=== PATIENT | female | born 1950 | race Caucasian/White ===

== ENCOUNTER → 2016-08-05 | Outpatient (CLI) | payer BC ==
[~2016-08-05] MED LIST: AMOX875T3 PO; B-COTAB53 PO; BNC/20125 PO; CEFD1CAP14 PO; CHOL1000 PO; ERGO500037 PO; ESCI10TA17 PO; IBUP-1428 PO; MULT-513 PO; POTA-65 PO; POTA20TA16 PO; PRLSR20 PO
[2016-08-05 17:54] LABS: ALT/SGPT 23 U/L (12-78); AST/SGOT 12 U/L (15-37); BLOOD UREA NITROGEN 17 mg/dl (7-18); BUN/CREATININE RATIO 21.3 (10-20); CARBON DIOXIDE 31 mmol/L (21-32); CHLORIDE 102 mmol/L (98-107); GLUCOSE 115 mg/dl (70-99); SODIUM 140 mmol/L (136-145)
[2016-08-05 17:56] LABS: ALKALINE PHOSPHATASE 77 U/L (45-117); CHOLESTEROL 230 mg/dl (0-200); CHOLESTEROL/HDL RATIO 3.5; HDL CHOLESTEROL 65 mg/dl; LDL CHOLESTEROL CALCULATED 139 mg/dl; TRIGLYCERIDES 131 mg/dl (0-150); VERY LOW DENSITY LIPOPROT CALC 26 mg/dl
== END | disposition home or self-care (01) ==
LOC: C.LABPVFM 11:06
PROVIDERS: ATTEND Family Medicine
DX: I10 Essential (primary) hypertension (principal); E78.5 Hyperlipidemia, unspecified; E55.9 Vitamin D deficiency, unspecified

== ENCOUNTER → 2016-08-06 | Outpatient (CLI) | payer BC ==
[~2016-08-06] VITALS: Ht 157.5 cm; Wt 114.2 kg
[2016-08-06 15:04] VITALS: BP 148/82; PULSE 76; Ht 157.5 cm; Wt 114.2 kg
== END | disposition home or self-care (01) ==
LOC: C.NEUR 13:55
PROVIDERS: ATTEND Internal Medicine Pulmonary Disease
DX: G47.33 Obstructive sleep apnea (adult) (pediatric) (principal)

== ENCOUNTER → 2016-09-21 | Outpatient (CLI) | payer BC | END | disposition home or self-care (01) | LOC: C.LABPVFM 13:12 | PROVIDERS: ATTEND Family Medicine | DX: E55.9 Vitamin D deficiency, unspecified (principal) ==

== ENCOUNTER 2016-10-09 20:42 | Inpatient (IN) | payer BC, OTHER ==
[~2016-10-09] VITALS: Ht 157.5 cm; Wt 113.0 kg
[2016-10-09 20:47] VITALS: Ht 157.5 cm; Wt 113.0 kg
[2016-10-09] MEDS ORDERED: BNC/20125 PO (20:57)
[2016-10-09] MEDS ORDERED: ESCI10TA17 PO (20:57)
[2016-10-09] MEDS ORDERED: IBUP-1428 PO (20:57)
[2016-10-09] MEDS ORDERED: PRLSR20 PO (20:58)
[2016-10-09] MEDS ORDERED: ERGO500037 PO (20:58)
[2016-10-09] MEDS ORDERED: CHOL1000 PO (21:18)
[2016-10-09] MEDS ORDERED: AMOX875T3 PO (21:18)
[2016-10-09] MEDS ORDERED: MoRPHine SULFATE 4 MG/ML 1 ML CARP\\VIAL IV STA (21:31)
[2016-10-09] MEDS ORDERED: ONDANSETRON INJ 2 MG/ML 2 ML VIAL IV STA (21:31)
[2016-10-09 21:38] LABS: BASO % 0.2 %; BASO ABS # 0.01 K/uL (0-0.2); COMPLETE YES; HEMATOCRIT 40.3 % (37-47); LYMPH % 14.7 %; LYMPH ABS # 0.74 K/uL (1.2-3.4); MEAN CORPUSCULAR HEMOGLOBIN 30.9 pg (25-34); MEAN CORPUSCULAR HGB CONC 34.7 g/dl (32-36); MEAN PLATELET VOLUME 8.8 fL (7.4-10.4); MONO % 7.9 %; NEUT % 74.2 %; PLATELET COUNT 185 K/uL (130-400); RED BLOOD COUNT 4.53 M/uL (4.2-5.4); WHITE BLOOD COUNT 5.05 K/uL (4.8-10.8)
[2016-10-09 21:51] LABS: CREATININE 0.87 mg/dl (0.60-1.20)
[2016-10-09 21:52] LABS: BUN/CREATININE RATIO 23.9 (10-20); CALCIUM 9.1 mg/dl (8.5-10.1); POTASSIUM 3.3 mmol/L (3.5-5.1)
[2016-10-09 21:55] LABS: INR 0.9 (0.9-1.1); PROTHROMBIN TIME (PATIENT) 10.1 SECONDS (9.0-12.0)
[2016-10-09] MEDS ORDERED: OPTIRAY 320 IV PRN (22:00)
--- NOTE | 2016-10-09 22:02 | DIAGNOSTIC IMAGING REPORT ---
ABDOMEN 2VIEW W/PA CHEST RTN CLINICAL HISTORY: Epigastric pain COMPARISON STUDY: No previous studies for comparison. FINDINGS: The erect chest reveals cardiac enlargement. There is no free air. There is no focal pulmonary consolidation. There is a hiatal hernia.] Supine views the abdomen reveal surgical clips within the right upper quadrant consistent with a prior cholecystectomy. There are no abnormally dilated loops of large or small bowel. There are no transition zones indicate bowel obstruction. IMPRESSION: 1. Hiatal hernia 2. No evidence of bowel obstruction. No evidence of free air. Electronically signed by: Danny Huizar M.D. 10/09/2016 10:01 PM Dictated Date/Time: 10/09/2016 10:00 PM
--- NOTE | 2016-10-09 22:30 | DIAGNOSTIC IMAGING REPORT ---
CT ABD/PELVIS IV CONTRAST ONLY CLINICAL HISTORY: epigastric pain COMPARISON STUDY: Abdominal series dated 10/09/2016 TECHNIQUE: Following the IV administration of 114 mL of Optiray-320, CT scan of the abdomen and pelvis was performed from the lung bases to the proximal femurs. Images are reviewed in the axial, sagittal, and coronal planes. IV contrast was administered without complication. CT DOSE: FINDINGS: Lower chest: There are minimal atelectatic changes present. There is a moderate hiatal hernia. Liver: The contrast-enhanced liver is normal in size, contour, and attenuation. There is no intrahepatic biliary ductal dilatation. The hepatic veins and portal veins are patent. Gallbladder: Surgically absent Spleen: Normal in size and attenuation. Pancreas: Unremarkable. Adrenal glands: Unremarkable. Kidneys: There is a 4 mm left renal hypodensity, likely representing a cyst. No solid renal masses are visualized. There is no hydronephrosis. Bowel: There are no transition zones indicate bowel obstruction. The appendix appears normal. There is colonic diverticulosis. There are no acute peridiverticular inflammatory changes. Peritoneum: There is no intraperitoneal free air or abdominal ascites. Vasculature: The abdominal aorta is normal in course and caliber. Adenopathy: None. Pelvic viscera: The uterus appears surgically absent Skeletal structures: No destructive osseous lesions are seen. IMPRESSION: 1. No evidence of bowel obstruction. No evidence of free air 2. Normal appendix 3. Diverticulosis. No evidence of acute peridiverticular inflammatory change 4. Hiatal hernia 5. Surgically absent gallbladder and uterus. Electronically signed by: Danny Huizar M.D. 10/09/2016 10:28 PM Dictated Date/Time: 10/09/2016 10:25 PM
--- NOTE | 2016-10-09 22:34 | DIAGNOSTIC IMAGING REPORT ---
CT ANGIOGRAM OF THE CHEST CLINICAL HISTORY: Atypical chest pain COMPARISON STUDY: No previous studies for comparison. TECHNIQUE: Following the IV administration of 114 mL of Optiray-320, CT angiogram of the thorax was performed from the thoracic inlet to the lung bases utilizing the pulmonary embolus protocol. Images are reviewed in the axial, sagittal, and coronal planes. IV contrast was administered without complication. MIP imaging was performed. CT DOSE: 2177.16 mGy.cm FINDINGS: There is a hiatal hernia. Mediastinal left hilar lymph nodes are at the upper limits of normal in size. There was no evidence of thoracic aortic dilatation. There were no pulmonary artery filling defects to indicate acute pulmonary embolism. No pleural effusions are visualized. There are minor dependent atelectatic changes present. There is no focal pulmonary consolidation. IMPRESSION: 1. No CT evidence of acute pulmonary embolism 2. No evidence of focal pulmonary consolidation 3. Hiatal hernia 4. Mediastinal and hilar lymph nodes at the upper limits of normal in size Electronically signed by: Danny Huizar M.D. 10/09/2016 10:33 PM Dictated Date/Time: 10/09/2016 10:30 PM
[2016-10-09 22:52] LABS: MAGNESIUM 1.9 mg/dl (1.8-2.4)
--- NOTE | 2016-10-09 23:18 | EMERGENCY ROOM VISIT NOTE ---
History Report prepared by Rito: Latonya Lynn Under the Supervision of: Dr. Jaleel Hoyos M.D. First contact with patient: 20:45 Chief Complaint: ABDOMINAL PAIN Stated Complaint: AB PAIN Nursing Triage Summary: Today started with sharp abdominal pain across upper right and left quadrant and pressure in centre. Pt did had one emesis at home. Pt was able to eat/drink okay. History of Present Illness The patient is a 66 year old female who presents to the Emergency Room with complaints of intermittent abdominal pain that started around 1900 today. The pain is located in the upper right and upper left quadrant of her abdomen. It is greater on the right. She rates her discomfort as a 3/10 and describes it as feeling "sharp" in nature. She was sitting in a chair when the pain started, and notes she had already eaten dinner. The episode of pain lasted for approximately 15 minutes. After the pain started, she became diaphoretic and went upstairs to her bathroom and vomited once. She also developed pain in her chest which she describes as a pressure. She does not feel nauseous here in the ED currently. Laying down flat provides some relief for her discomfort. Her last colonoscopy was unremarkable. The patient states her pain came back later in the evening but without the chest discomfort, prompting her to visit the ED tonight. She has no personal history of cardiac problems or previous CT's. She has experienced the chills, but has not checked her temperature. She also notes she has been sick with cold symptoms on and off for the past 3 weeks, mostly experiencing a cough and sore throat. She was placed on antibiotics yesterday and Zyrtec for possible allergies. She denies any recent sick contacts and states she did not get a flu shot this year. The patient denies any diarrhea, rectal bleeding, melena, hematochezia or urinary symptoms. She denies any recent swelling or pain in her legs, shortness of breath or vision changes. She has previously undergone a cholecystectomy and hysterectomy. Source of History: patient Onset: 1899 today Position: abdomen (RUQ, LUQ) Symptom Intensity: 3/10 Quality: sharp Timing: intermittent Modifying Factors (Relieving): other (laying down flat) Associated Symptoms: + chest pain, + chills, + diaphoresis, + nausea, + vomiting, No SOB, No diarrhea, No hematochezia, No melena, No urinary symptoms Review of Systems See HPI for pertinent positives & negatives. A total of 10 systems reviewed and were otherwise negative. Past Medical & Surgical Medical Problems: (1) Hypertension Surgical Problems: (1) History of hysterectomy Family History Heart disease Social History Smoking Status: Never Smoker Alcohol Use: occasionally Drug Use: none Marital Status: Housing Status: lives with family Occupation Status: retired Current/Historical Medications Scheduled Amoxicillin (Amoxil), 1 TAB PO BID Cholecalciferol (Vitamin D3), 3,000 UNITS PO DAILY Escitalopram (Lexapro), 5 MG PO DAILY Ibuprofen (Motrin), 800 MG PO TIDM Olmesartan/Hctz (Benicar Hct 20/12.5), 1 TAB PO DAILY Omeprazole (Prilosec), 20 MG PO DAILY Allergies Coded Allergies: NO KNOWN DRUG ALLERGIES (Verified Allergy, Unknown, none, 10/09/16) Physical Exam Vital Signs Date Time Temp Pulse Resp B/P Pulse Ox O2 Delivery O2 Flow Rate FiO2 10/09/16 22:23 91 18 161/88 93 Room Air 10/09/16 22:00 76 10/09/16 21:42 Room Air 10/09/16 20:47 36.4 82 18 159/101 99 Room Air Physical Exam Constitutional: Vital signs reviewed. Eyes: Pupils are equal round reactive to light. Conjunctiva are noninjected. ENT: Pharynx is clear without erythema or exudate. Mucous membranes are moist. Neck supple without meningeal signs. Respiratory: Clear to auscultation bilaterally. Breath sounds are equal bilaterally. Cardiovascular: Regular rate and rhythm. No rubs or gallops. GI: Soft, nondistended, epigastric tenderness, no guarding. Bowel sounds are present. Musculoskeletal: No peripheral edema. No lower extremity tenderness. No CVA tenderness. Integumentary: No cyanosis. Neurological: The patient is awake and alert. No focal deficits. Psychiatric: Normal affect. Medical Decision & Procedures ER Provider Diagnostic Interpretation: This X-Ray was reviewed and interpreted by myself and the radiologist. ABDOMEN 2VIEW W/PA CHEST RTN CLINICAL HISTORY: Epigastric pain COMPARISON STUDY: No previous studies for comparison. FINDINGS: The erect chest reveals cardiac enlargement. There is no free air. There is no focal pulmonary consolidation. There is a hiatal hernia.] Supine views the abdomen reveal surgical clips within the right upper quadrant consistent with a prior cholecystectomy. There are no abnormally dilated loops of large or small bowel. There are no transition zones indicate bowel obstruction. IMPRESSION: 1. Hiatal hernia 2. No evidence of bowel obstruction. No evidence of free air. Electronically signed by: Danny Huizar M.D. 10/09/2016 10:[address] scans were reviewed and interpreted by the radiologist and reviewed by myself. CT ABD/PELVIS IV CONTRAST ONLY CLINICAL HISTORY: epigastric pain COMPARISON STUDY: Abdominal series dated 10/09/2016 TECHNIQUE: Following the IV administration of 114 mL of Optiray-320, CT scan of the abdomen and pelvis was performed from the lung bases to the proximal femurs. Images are reviewed in the axial, sagittal, and coronal planes. IV contrast was administered without complication. CT DOSE: FINDINGS: Lower chest: There are minimal atelectatic changes present. There is a moderate hiatal hernia. Liver: The contrast-enhanced liver is normal in size, contour, and attenuation. There is no intrahepatic biliary ductal dilatation. The hepatic veins and portal veins are patent. Gallbladder: Surgically absent Spleen: Normal in size and attenuation. Pancreas: Unremarkable. Adrenal glands: Unremarkable. Kidneys: There is a 4 mm left renal hypodensity, likely representing a cyst. No solid renal masses are visualized. There is no hydronephrosis. Bowel: There are no transition zones indicate bowel obstruction. The appendix appears normal. There is colonic diverticulosis. There are no acute peridiverticular inflammatory changes. Peritoneum: There is no intraperitoneal free air or abdominal ascites. Vasculature: The abdominal aorta is normal in course and caliber. Adenopathy: None. Pelvic viscera: The uterus appears surgically absent Skeletal structures: No destructive osseous lesions are seen. IMPRESSION: 1. No evidence of bowel obstruction. No evidence of free air 2. Normal appendix 3. Diverticulosis. No evidence of acute peridiverticular inflammatory change 4. Hiatal hernia 5. Surgically absent gallbladder and uterus. Electronically signed by: Danny Huizar M.D. 10/09/2016 10:[address] ANGIOGRAM OF THE CHEST CLINICAL HISTORY: Atypical chest pain COMPARISON STUDY: No previous studies for comparison. TECHNIQUE: Following the IV administration of 114 mL of Optiray-320, CT angiogram of the thorax was performed from the thoracic inlet to the lung bases utilizing the pulmonary embolus protocol. Images are reviewed in the axial, sagittal, and coronal planes. IV contrast was administered without complication. MIP imaging was performed. CT DOSE: 2177.16 mGy.cm FINDINGS: There is a hiatal hernia. Mediastinal left hilar lymph nodes are at the upper limits of normal in size. There was no evidence of thoracic aortic dilatation. There were no pulmonary artery filling defects to indicate acute pulmonary embolism. No pleural effusions are visualized. There are minor dependent atelectatic changes present. There is no focal pulmonary consolidation. IMPRESSION: 1. No CT evidence of acute pulmonary embolism 2. No evidence of focal pulmonary consolidation 3. Hiatal hernia 4. Mediastinal and hilar lymph nodes at the upper limits of normal in size Electronically signed by: Danny Huizar M.D. 10/09/2016 10:33 PM Laboratory Results 10/09/16 21:00 Red Blood Count 4.53, Mean Corpuscular Volume 89.0, Mean Corpuscular Hemoglobin 30.9, Mean Corpuscular Hemoglobin Concent 34.7, Mean Platelet Volume 8.8, Neutrophils (%) (Auto) 74.2, Lymphocytes (%) (Auto) 14.7, Monocytes (%) (Auto) 7.9, Eosinophils (%) (Auto) 3.0, Basophils (%) (Auto) 0.2, Neutrophils # (Auto) 3.75, Lymphocytes # (Auto) 0.74, Monocytes # (Auto) 0.40, Eosinophils # (Auto) 0.15, Basophils # (Auto) 0.01 10/09/16 21:00 Test 10/09/16 21:00 10/09/16 21:42 White Blood Count 5.05 K/uL (4.8-10.8) Red Blood Count 4.53 M/uL (4.2-5.4) Hemoglobin 14.0 g/dL (12.0-16.0) Hematocrit 40.3 % (37-47) Mean Corpuscular Volume 89.0 fL (80-100) Mean Corpuscular Hemoglobin 30.9 pg (25-34) Mean Corpuscular Hemoglobin Concent 34.7 g/dl (32-36) Platelet Count 185 K/uL (130-400) Mean Platelet Volume 8.8 fL (7.4-10.4) Neutrophils (%) (Auto) 74.2 % Lymphocytes (%) (Auto) 14.7 % Monocytes (%) (Auto) 7.9 % Eosinophils (%) (Auto) 3.0 % Basophils (%) (Auto) 0.2 % Neutrophils # (Auto) 3.75 K/uL (1.4-6.5) Lymphocytes # (Auto) 0.74 K/uL (1.2-3.4) Monocytes # (Auto) 0.40 K/uL (0.11-0.59) Eosinophils # (Auto) 0.15 K/uL (0-0.5) Basophils # (Auto) 0.01 K/uL (0-0.2) RDW Standard Deviation 40.3 fL (36.4-46.3) RDW Coefficient of Variation 12.5 % (11.5-14.5) Immature Granulocyte % (Auto) 0.0 % Immature Granulocyte # (Auto) 0.00 K/uL (0.00-0.02) Prothrombin Time 10.1 SECONDS (9.0-12.0) Prothromb Time International Ratio 0.9 (0.9-1.1) Activated Partial Thromboplast Time 25.2 SECONDS (21.0-31.0) Partial Thromboplastin Ratio 1.0 Anion Gap 10.0 mmol/L (3-11) Est Creatinine Clear Calc Drug Dose 74.3 ml/min Estimated GFR () 79.3 Estimated GFR (Non- 68.5 BUN/Creatinine Ratio 23.9 (10-20) Calcium Level 9.1 mg/dl (8.5-10.1) Magnesium Level 1.9 mg/dl (1.8-2.4) Total Bilirubin 0.5 mg/dl (0.2-1) Direct Bilirubin 0.1 mg/dl (0-0.2) Aspartate Amino Transf (AST/SGOT) 113 U/L (15-37) Alanine Aminotransferase (ALT/SGPT) 69 U/L (12-78) Alkaline Phosphatase 92 U/L (45-117) Total Protein 7.7 gm/dl (6.4-8.2) Albumin 3.7 gm/dl (3.4-5.0) Lipase 179 U/L (73-393) Bedside Troponin I 0.000 ng/ml (0-0.045) Laboratory results as reviewed by me. Medications Administered Medications (Trade) Dose Ordered Sig/Maggie Route Start Time Stop Time Status Last Admin Dose Admin Morphine Sulfate (MoRPHine SULFATE INJ) 4 mg NOW STAT IV 10/09/16 21:31 10/09/16 21:33 DC 10/09/16 21:37 4 MG Ondansetron HCl (Zofran Inj) 4 mg NOW STAT IV 10/09/16 21:31 10/09/16 21:33 DC 10/09/16 21:36 4 MG ECG Indication: chest pain Rate (beats per minute): 79 Rhythm: normal sinus (normal sinus rhythm) Findings: no acute ischemic change, no ectopy ED Course 2124: The patient was evaluated in room C9. A complete history and physical exam was performed. 2130: Zofran 4 mg IV, Morphine Sulfate 4 mg IV. 2154: I reevaluated the patient. She is feeling better. I discussed her test results and recommend a CT scan. She is agreeable. 2234: I reevaluated the patient. She has no pain at this time. I discussed her test results and my recommendation she remain in the hospital for further evaluation and management and she verbalized complete understanding and agreement. 2254: I discussed the patients case with Dr. López, [facility] Hospitalist. The patient will be further evaluated. Medical Decision This is a 66-year-old female presents with upper abdominal pain and chest pain.differential diagnosis includes unstable angina, CT, pleurisy, pneumonia, pulmonary embolism, peptic ulcer disease, ruptured viscus. I did perform a limited focused review of portions of the patient's old chart on the electronic medical record. The patient has had no recent pertinent visits to this hospital. I did evaluate the patient as noted above. The patient is presenting with upper abdominal pain. She also developed chest discomfort which she describes as a pressure associated with diaphoresis and shortness of breath. IV access was established. The patient was placed on a continuous groundwater monitoring technician. I did order and personally review the patient's 12-lead EKG and abdominal/chest x- ray as described above. I did order and review the patient's blood work as noted in the electronic medical record. Troponin is negative. Her white blood cell count is not elevated. I did treat patient with IV morphine and Zofran. After discussion with the patient, I did order a CT of the chest, abdomen and pelvis. I did review the images myself as well as the radiology report as described above. There is no evidence of acute pathology such as perforated viscus or pulmonary embolism. On reexamination the patient is not having any discomfort. I did recommend hospitalization for further evaluation of her symptoms as well as repeat cardiac enzymes. I did discuss case with the hospitalist and case planner. Consults Time Called: 2237 Consulting Physician: Dr. López [facility] Hospitalist Returned Call: [phone] I discussed the patients case with Dr. López [facility] Hospitalist. The patient will be further evaluated. Impression Primary Impression: Precordial chest pain Additional Impression: Upper abdominal pain Scribe Attestation The scribe's documentation has been prepared under my direct and personally reviewed by me in its entirety. I confirm that the note above accurately reflects all work, treatment, procedures, and medical decision making performed by me. Departure Information Dispostion Being Evaluated By Hospitalist Referrals Georgi Cazares M.D. (PCP) Patient Instructions My [facility] Problem Qualifiers
[2016-10-09] MEDS ORDERED: ONDANSETRON INJ 2 MG/ML 2 ML VIAL IV PRN (23:30)
[2016-10-09] MEDS ORDERED: ZOLPIDEM TARTRATE 5 MG TAB PO PRN (23:30)
[2016-10-09] MEDS ORDERED: ACETAMINOPHEN 325 MG TAB PO PRN (23:30)
[2016-10-09] MEDS ORDERED: NITROGLYCERIN 0.4 MG SL PER TAB CHARGE SL PRN (23:30)
[2016-10-09] MEDS ORDERED: FAMOTIDINE 20 MG TAB ONE (23:33)
[2016-10-09] MEDS ORDERED: FAMOTIDINE 20 MG TAB PO ONE (23:45)
[2016-10-10 00:17] LABS: CKMB/CK RATIO 1.4 (0-3.0)
[2016-10-10 00:57] VITALS: O2SAT 94
[2016-10-10 01:05] VITALS: BP 156/79; PULSE 71; TEMP 37; O2SAT 94; BMI 45.6
[2016-10-10] MEDS: NSS + 20MEQ KCL 1000ML 1,000 ML IV SCH ×2 (01:47→11:45)
[2016-10-10] MEDS ORDERED: CEFTRIAXONE SOD INJ 1 GM in DEXTROSE 5% ADD-VANTAGE 50ML 50 ML IV SCH (02:00)
[2016-10-10 03:16] VITALS: BP 112/68; PULSE 68; TEMP 37; O2SAT 93
--- NOTE | 2016-10-10 05:31 | History and Physical ---
History & Physical Date & Time of Service: Oct 10, 2016 at 05:13 Chief Complaint: Failure Of Out Patient Treatment, Uri Primary Care Physician: Georgi Cazares M.D. History of Present Illness Source: patient, family The patient is a 66-year-old female presents emergency department complaint of intermittent epigastric and precordial chest pain that began around 1900 hrs. today. Her pain began at rest, while sitting in a chair, with duration approximately 15 minutes, and later accompanied by diaphoresis and then 1 episode of vomiting. She reports that laying down improved her symptoms. The symptoms did go away completely, however, when they return later on in the evening without the chest discomfort, she decided to come to emergency department for assessment. She has had upper respiratory infection symptoms over the past 3 weeks, along with a cough and sore throat, and was started on amoxicillin and Zyrtec by her PCP a few days ago. Family History Heart disease Social History Smoking Status: Never Smoker Smokeless Tobacco Use: No Alcohol Use: none Drug Use: none Marital Status: Housing status: lives with family Occupational Status: retired Multi-Drug Resistant Organisms History of MDRO: No Allergies Coded Allergies: NO KNOWN DRUG ALLERGIES (Verified Allergy, Unknown, none, 10/09/16) Home Medications Scheduled Amoxicillin (Amoxil), 1 TAB PO BID Cholecalciferol (Vitamin D3), 3,000 UNITS PO DAILY Escitalopram (Lexapro), 5 MG PO DAILY Ibuprofen (Motrin), 800 MG PO TIDM Olmesartan/Hctz (Benicar Hct 20/12.5), 1 TAB PO DAILY Omeprazole (Prilosec), 20 MG PO DAILY Review of Systems The patient denies lower extremity swelling, vision change, hearing change, blood in urine or stool, dysuria, urinary frequency or urgency, memory loss, rash, abnormal bruising or bleeding, imbalance, focal or generalized weakness, numbness or tingling in arms or legs, arthralgias or myalgias, back or neck pain , night sweats. The review of systems is otherwise negative other than for that already noted above, and at least 10 systems have been reviewed. Physical Exam Vital Signs Date Time Temp Pulse Resp B/P Pulse Ox O2 Delivery O2 Flow Rate FiO2 10/10/16 04:00 Room Air 10/10/16 03:16 37.0 68 17 112/68 93 Room Air 10/10/16 01:05 37.0 71 18 156/79 94 Room Air 10/10/16 00:57 36.4 71 18 115/69 94 10/10/16 00:29 71 18 115/69 94 Room Air 10/10/16 00:00 86 18 102/79 97 Room Air 10/09/16 22:23 91 18 161/88 93 Room Air 10/09/16 22:00 76 10/09/16 21:42 Room Air 10/09/16 20:47 36.4 82 18 159/101 99 Room Air The patient is awake, well-developed and adequately nourished, alert and oriented 3, normocephalic and atraumatic, lying in bed and in no acute distress. HEENT--PERRL, EOMI, mucous membranes and oropharynx with moderate erythema and dry. Neck--supple, no JVD or bruits, thyroid normal, trachea midline, no adenopathy. Heart--normal S1 and S2, no extra beats, no murmurs, rubs or gallops. Lungs--no respiratory distress, no accessory muscle use. Abdomen--normal bowel sounds and soft, nontender and nondistended, no hernias or masses, no organomegaly. Extremities--no cyanosis, clubbing or edema. There are good distal pulses b/l. Dermatologic--normal skin turgor, normal color, warm and dry, no abnormal lymph nodes, no rash. Neurologic--cranial nerves II through XII grossly intact, motor and sensory examination normal. Rheumatologic--normal range of motion, nontender, muscles and joints. Psychiatric--normal affect. Diagnostics Laboratory Results Results Past 24 Hours Test 10/09/16 21:00 10/09/16 21:42 10/09/16 23:45 Range/Units White Blood Count 5.05 4.8-10.8 K/uL Red Blood Count 4.53 4.2-5.4 M/uL Hemoglobin 14.0 12.0-16.0 g/dL Hematocrit 40.3 37-47 % Mean Corpuscular Volume 89.0 80-100 fL Mean Corpuscular Hemoglobin 30.9 25-34 pg Mean Corpuscular Hemoglobin Concent 34.7 32-36 g/dl Platelet Count 185 130-400 K/uL Mean Platelet Volume 8.8 7.4-10.4 fL Neutrophils (%) (Auto) 74.2 % Lymphocytes (%) (Auto) 14.7 % Monocytes (%) (Auto) 7.9 % Eosinophils (%) (Auto) 3.0 % Basophils (%) (Auto) 0.2 % Neutrophils # (Auto) 3.75 1.4-6.5 K/uL Lymphocytes # (Auto) 0.74 1.2-3.4 K/uL Monocytes # (Auto) 0.40 0.11-0.59 K/uL Eosinophils # (Auto) 0.15 0-0.5 K/uL Basophils # (Auto) 0.01 0-0.2 K/uL RDW Standard Deviation 40.3 36.4-46.3 fL RDW Coefficient of Variation 12.5 11.5-14.5 % Immature Granulocyte % (Auto) 0.0 % Immature Granulocyte # (Auto) 0.00 0.00-0.02 K/uL Prothrombin Time 10.1 9.0-12.0 SECONDS Prothromb Time International Ratio 0.9 0.9-1.1 Activated Partial Thromboplast Time 25.2 21.0-31.0 SECONDS Partial Thromboplastin Ratio 1.0 Sodium Level 142 136-145 mmol/L Potassium Level 3.3 3.5-5.1 mmol/L Chloride Level 104 98-107 mmol/L Carbon Dioxide Level 28 21-32 mmol/L Anion Gap 10.0 3-11 mmol/L Blood Urea Nitrogen 21 7-18 mg/dl Creatinine 0.87 0.60-1.20 mg/dl Est Creatinine Clear Calc Drug Dose 74.3 ml/min Estimated GFR () 79.3 Estimated GFR (Non- 68.5 BUN/Creatinine Ratio 23.9 10-20 Random Glucose 121 70-99 mg/dl Calcium Level 9.1 8.5-10.1 mg/dl Magnesium Level 1.9 1.8-2.4 mg/dl Total Bilirubin 0.5 0.2-1 mg/dl Direct Bilirubin 0.1 0-0.2 mg/dl Aspartate Amino Transf (AST/SGOT) 113 15-37 U/L Alanine Aminotransferase (ALT/SGPT) 69 12-78 U/L Alkaline Phosphatase 92 45-117 U/L Total Protein 7.7 6.4-8.2 gm/dl Albumin 3.7 3.4-5.0 gm/dl Lipase 179 73-393 U/L Bedside Troponin I 0.000 0-0.045 ng/ml Total Creatine Kinase 51 26-192 U/L Creatine Kinase MB 0.7 0.5-3.6 ng/ml Creatine Kinase MB Ratio 1.4 0-3.0 Troponin I < 0.015 0-0.045 ng/ml Diagnostic Radiology Patient Name: SUSIE MONTES Unit Number: [id number] Dictated: 10/09/162199 Transcribed: 10/09/162199 ARG Printed Date/Time: [~ rep prt dt]/[~ rep prt tm] [~ rep ct labl] - [~ rep ct ivnm] [facility] [place] [address] Dictated: 10/09/162199 Transcribed: 10/09/162199 ARG Printed Date/Time: [~ rep prt dt]/[~ rep prt tm] [~ rep ct labl] - [~ rep ct ivnm] [~ rep ct add3]] ABDOMEN 2VIEW W/PA CHEST RTN CLINICAL HISTORY: Epigastric pain COMPARISON STUDY: No previous studies for comparison. FINDINGS: The erect chest reveals cardiac enlargement. There is no free air. There is no focal pulmonary consolidation. There is a hiatal hernia.] Supine views the abdomen reveal surgical clips within the right upper quadrant consistent with a prior cholecystectomy. There are no abnormally dilated loops of large or small bowel. There are no transition zones indicate bowel obstruction. IMPRESSION: 1. Hiatal hernia 2. No evidence of bowel obstruction. No evidence of free air. Electronically signed by: Danny Huizar M.D. 10/09/2016 10:01 PM Dictated Date/Time: 10/09/2016 10:00 PM The status of this report is Signed. Draft = Not yet reviewed or approved by Radiologist. Signed = Reviewed and approved by Radiologist. <AttendingPhy></AttendingPhy> <FamilyPhy>Georgi Cazares M.D.</FamilyPhy > <PrimaryPhy>Georgi Cazares M.D.</PrimaryPhy> <UnitNumber>[id number]</ UnitNumber> <VisitNumber>[id number]</VisitNumber> <PatientName>SUSIE MONTES</PatientName> <DateOfBirth>1950</DateOfBirth> <Location>[facility]</ Location> <ServiceDate>10/09/16</ServiceDate> <MNE>ESINDI</MNE> <OrderingPhy> Jaleel Hoyos MD</OrderingPhy> <OrderingPhyMNE>f rep ord dr mario</OrderingPhyMNE > <DictatingPhyMNE>f rep dict dr mario</DictatingPhyMNE> <CCListMNE>f rep ct mntahir</ CCListMNE> <AdmittingPhyMNE>f pt admit dr mario</AdmittingPhyMNE> <AttendingPhyMNE >f pt attend dr mario</AttendingPhyMNE> <ConsultingPhyMNE>f pt consult dr mario</ConsultingPhyMNE> <FamilyPhyMNE>f pt fam dr mario</FamilyPhyMNE> <OtherPhyMNE>f pt other dr mario</OtherPhyMNE> < PrimaryPhyMNE>f pt prim care dr mario</PrimaryPhyMNE> <ReferringPhyMNE>f pt referring dr mario</ReferringPhyMNE> Patient Name: SUSIE MONTES Unit Number: [id number] Dictated: 10/09/162229 Transcribed: 10/09/162229 ARG Printed Date/Time: [~ rep prt dt]/[~ rep prt tm] [~ rep ct labl] - [~ rep ct ivnm] [facility] Radiology Department [place], [place] [id number] Dictated: 10/09/162229 Transcribed: 10/09/162229 ARG Printed Date/Time: [~ rep prt dt]/[~ rep prt tm] [~ rep ct labl] - [~ rep ct ivnm] CT ANGIOGRAM OF THE CHEST CLINICAL HISTORY: Atypical chest pain COMPARISON STUDY: No previous studies for comparison. TECHNIQUE: Following the IV administration of 114 mL of Optiray-320, CT angiogram of the thorax was performed from the thoracic inlet to the lung bases utilizing the pulmonary embolus protocol. Images are reviewed in the axial, sagittal, and coronal planes. IV contrast was administered without complication. MIP imaging was performed. CT DOSE: 2177.16 mGy.cm FINDINGS: There is a hiatal hernia. Mediastinal left hilar lymph nodes are at the upper limits of normal in size. There was no evidence of thoracic aortic dilatation. There were no pulmonary artery filling defects to indicate acute pulmonary embolism. No pleural effusions are visualized. There are minor dependent atelectatic changes present. There is no focal pulmonary consolidation. IMPRESSION: 1. No CT evidence of acute pulmonary embolism 2. No evidence of focal pulmonary consolidation 3. Hiatal hernia 4. Mediastinal and hilar lymph nodes at the upper limits of normal in size Electronically signed by: Danny Huizar M.D. 10/09/2016 10:33 PM Dictated Date/Time: 10/09/2016 10:30 PM The status of this report is Signed. Draft = Not yet reviewed or approved by Radiologist. Signed = Reviewed and approved by Radiologist. <AttendingPhy></AttendingPhy> <FamilyPhy>Georgi Cazares M.D.</FamilyPhy > <PrimaryPhy>Georgi Cazares M.D.</PrimaryPhy> <UnitNumber>[id number]</ UnitNumber> <VisitNumber>[id number]</VisitNumber> <PatientName>SUSIE MONTES</PatientName> <DateOfBirth>1950</DateOfBirth> <Location>[facility]</ Location> <ServiceDate>10/09/16</ServiceDate> <MNE>ESINDI</MNE> <OrderingPhy> Jaleel Hoyos MD</OrderingPhy> <OrderingPhyMNE>f rep ord dr mario</OrderingPhyMNE > <DictatingPhyMNE>f rep dict dr mario</DictatingPhyMNE> <CCListMNE>f rep ct fabiano</ CCListMNE> <AdmittingPhyMNE>f pt admit dr mario</AdmittingPhyMNE> <AttendingPhyMNE >f pt attend dr mario</AttendingPhyMNE> <ConsultingPhyMNE>f pt consult dr mario</ConsultingPhyMNE> <FamilyPhyMNE>f pt fam dr mario</FamilyPhyMNE> <OtherPhyMNE>f pt other dr mario</OtherPhyMNE> < PrimaryPhyMNE>f pt prim care dr mario</PrimaryPhyMNE> <ReferringPhyMNE>f pt referring dr mario</ReferringPhyMNE> Patient Name: SUSIE MONTES Unit Number: [id number] Dictated: 10/09/162224 Transcribed: 10/09/162224 ARG Printed Date/Time: [~ rep prt dt]/[~ rep prt tm] [~ rep ct labl] - [~ rep ct ivnm] [facility] [place] [address] Dictated: 10/09/162224 Transcribed: 10/09/162224 ARG Printed Date/Time: [~ rep prt dt]/[~ rep prt tm] [~ rep ct labl] - [~ rep ct ivnm] CT ABD/PELVIS IV CONTRAST ONLY CLINICAL HISTORY: epigastric pain COMPARISON STUDY: Abdominal series dated 10/09/2016 TECHNIQUE: Following the IV administration of 114 mL of Optiray-320, CT scan of the abdomen and pelvis was performed from the lung bases to the proximal femurs. Images are reviewed in the axial, sagittal, and coronal planes. IV contrast was administered without complication. CT DOSE: FINDINGS: Lower chest: There are minimal atelectatic changes present. There is a moderate hiatal hernia. Liver: The contrast-enhanced liver is normal in size, contour, and attenuation. There is no intrahepatic biliary ductal dilatation. The hepatic veins and portal veins are patent. Gallbladder: Surgically absent Spleen: Normal in size and attenuation. Pancreas: Unremarkable. Adrenal glands: Unremarkable. Kidneys: There is a 4 mm left renal hypodensity, likely representing a cyst. No solid renal masses are visualized. There is no hydronephrosis. Bowel: There are no transition zones indicate bowel obstruction. The appendix appears normal. There is colonic diverticulosis. There are no acute peridiverticular inflammatory changes. Peritoneum: There is no intraperitoneal free air or abdominal ascites. Vasculature: The abdominal aorta is normal in course and caliber. Adenopathy: None. Pelvic viscera: The uterus appears surgically absent Skeletal structures: No destructive osseous lesions are seen. IMPRESSION: 1. No evidence of bowel obstruction. No evidence of free air 2. Normal appendix 3. Diverticulosis. No evidence of acute peridiverticular inflammatory change 4. Hiatal hernia 5. Surgically absent gallbladder and uterus. Electronically signed by: Danny Huizar M.D. 10/09/2016 10:28 PM Dictated Date/Time: 10/09/2016 10:25 PM The status of this report is Signed. Draft = Not yet reviewed or approved by Radiologist. Signed = Reviewed and approved by Radiologist. <AttendingPhy></AttendingPhy> <FamilyPhy>Georgi Cazares M.D.</FamilyPhy > <PrimaryPhy>Georgi Cazares M.D.</PrimaryPhy> <UnitNumber>[id number]</ UnitNumber> <VisitNumber>[id number]</VisitNumber> <PatientName>MONTES,SUSIE POLK</PatientName> <DateOfBirth>1950</DateOfBirth> <Location>[facility]</ Location> <ServiceDate>10/09/16</ServiceDate> <MNE>ESINDI</MNE> <OrderingPhy> Jaleel Hoyos MD</OrderingPhy> <OrderingPhyMNE>f rep ord dr mario</OrderingPhyMNE > <DictatingPhyMNE>f rep dict dr mario</DictatingPhyMNE> <CCListMNE>f rep ct fabiano</ CCListMNE> <AdmittingPhyMNE>f pt admit dr mario</AdmittingPhyMNE> <AttendingPhyMNE >f pt attend dr mario</AttendingPhyMNE> <ConsultingPhyMNE>f pt consult dr mario</ConsultingPhyMNE> <FamilyPhyMNE>f pt fam dr mario</FamilyPhyMNE> <OtherPhyMNE>f pt other dr mario</OtherPhyMNE> < PrimaryPhyMNE>f pt prim care dr mario</PrimaryPhyMNE> <ReferringPhyMNE>f pt referring dr mario</ReferringPhyMNE> EKG EKG shows normal sinus rhythm at 79 bpm, there are no acute ST-T changes. Impression Assessment and Plan Precordial chest pain/hypertension/hypokalemia--the patient be admitted to the telemetry unit, for serial cardiac enzymes, cardiac rhythm monitoring and a 2-D echocardiogram with Dopplers. We will stop HCTZ 12.5 mg daily, increase Benicar from 20 to 40 mg by mouth daily. Upper respiratory infection/pharyngitis/failure by outpatient treatment--stop amoxicillin, and start ceftriaxone 1 g IV daily. GERD/hiatal hernia--change omeprazole 20 mg by mouth daily to pantoprazole 40 mg by mouth daily. Her chest discomfort symptoms may be associated with worsening reflux and/or esophageal spasm secondary to her hiatal hernia. Depression/anxiety--continue Lexapro 5 mg by mouth daily. Abnormal liver enzymes--check hepatitis C per protocol. Although fatty liver was not noted on CT, that would be a consideration for her diagnosis. Mediastinal and hilar lymphadenopathy at upper limits of normal--we'll consider repeat CT in 3-6 months. Level of Care Telemetry Advanced Directives Existing Advance Directive: No Existing Living Will: Yes Existing Power of Professor Of Sport Management: Yes Resuscitation Status FULL RESUSCITATION VTE Prophylaxis VTE Risk Assessment Done? Y/N: Yes Risk Level: Moderate Given or contraindicated: SCD's
[2016-10-10 07:44] LABS: COMPLETE YES; EOS % 1.8 %; HEMATOCRIT 36.5 % (37-47); IG% 0.3 %; LYMPH % 24.5 %; MEAN CELL VOLUME 86.9 fL (80-100); MEAN CORPUSCULAR HGB CONC 35.6 g/dl (32-36); MEAN PLATELET VOLUME 8.4 fL (7.4-10.4); MONO % 9.2 %; NEUT % 64.2 %; PLATELET COUNT 155 K/uL (130-400); WHITE BLOOD COUNT 3.27 K/uL (4.8-10.8)
[2016-10-10 07:50] VITALS: BP 108/59; PULSE 70; TEMP 36.9; O2SAT 96
[2016-10-10 08:21] LABS: BLOOD UREA NITROGEN 16 mg/dl (7-18); BUN/CREATININE RATIO 21.8 (10-20); CALCIUM 8.4 mg/dl (8.5-10.1); CARBON DIOXIDE 29 mmol/L (21-32); CHLORIDE 105 mmol/L (98-107); CKMB/CK RATIO 1.8 (0-3.0); CREATININE 0.72 mg/dl (0.60-1.20); GLUCOSE 118 mg/dl (70-99); MAGNESIUM 2.1 mg/dl (1.8-2.4); POTASSIUM 3.8 mmol/L (3.5-5.1); SODIUM 143 mmol/L (136-145)
[2016-10-10] MEDS ORDERED: PANTOprazole SOD 40 MG TAB PO SCH (09:00)
[2016-10-10] MEDS ORDERED: ESCITALOPRAM OXALATE 10 MG TAB PO SCH (09:00)
[2016-10-10] MEDS ORDERED: CHOLECALCIFEROL 1000 INTER.UNIT TAB PO SCH (09:00)
[2016-10-10] MEDS ORDERED: OLMESARTAN MEDOXOMIL 40 MG TAB PO SCH (09:00)
[2016-10-10] MEDS ORDERED: POTA-65 PO (12:02)
[2016-10-10] MEDS ORDERED: CEFD1CAP14 PO (12:02)
--- NOTE | 2016-10-10 12:04 | Discharge Instructions ---
Discharge Instructions Date of Service Oct 10, 2016. Admission Reason for Admission: Failure Of Out Patient Treatment, Uri Discharge Discharge Diagnosis / Problem: Chest pain ruled out for ACS, Cough Discharge Goals Goal(s): Improve disease control Activity Recommendations Activity Limitations: resume your previous activity . Instructions / Follow-Up Instructions / Follow-Up Follow up with family physician in one week Current Hospital Diet Patient's current hospital diet: AHA Diet (Heart Healthy) Discharge Diet Recommended Diet: AHA Diet (Heart Healthy) Pending Studies Studies pending at discharge: yes List of pending studies: Urinalysis and culture Laboratory Results Lipid Panel Test 08/05/16 11:10 Range/Units Triglycerides Level 131 0-150 mg/dl Cholesterol Level 230 H 0-200 mg/dl HDL Cholesterol 65 mg/dl Cholesterol/HDL Ratio 3.5 LDL Cholesterol, Calculated 139 mg/dl Medical Emergencies . Who to Call and When: Medical Emergencies: If at any time you feel your situation is an emergency, please call 911 immediately. . Non-Emergent Contact Non-Emergency issues call your: Primary Care Provider . . "Provider Documentation" section prepared by Megan Beck. VTE Core Measure Inpt VTE Proph given/why not?: SCD's
[2016-10-10 12:06] VITALS: BP 120/74; PULSE 78; TEMP 36.9; O2SAT 91
[2016-10-10 12:14] VITALS: BP 120/74; PULSE 78; TEMP 36.9; O2SAT 91
[2016-10-10 12:53] LABS: URINE APPEARANCE CLEAR (CLEAR); URINE BILIRUBIN NEG (NEG); URINE COLOR YELLOW; URINE EPITHELIAL CELL AUTO 20-30 /lpf (0-5); URINE NITRITE NEG (NEG); URINE PH 5.5 (4.5-7.5); URINE SPECIFIC GRAVITY 1.021 (1.000-1.030); UROBILINOGEN NEG (NEG); ZZUR CULT IF INDIC CLEAN CATCH NO
[2016-10-10 12:56] LABS: MANUAL MICROSCOPIC REQUIRED? NO; REVIEW REQ? NO
--- NOTE | 2016-10-10 14:06 | Discharge Summary ---
Discharge Summary Date of Service Oct 10, 2016. Discharge Summary Admission Date: Oct 09, 2016 at 23:29 Discharge Date: Oct 10, 2016 Discharge Disposition: Home Principal Diagnosis: Chest pain ruled out for ACS Medication Reconciliation New Medications: Cefdinir (Omnicef) 300 Mg Cap 300 MG PO Q12H for 7 Days, #14 CAP Potassium Chloride (Potassium Chloride ER) 20 Meq Tab 1 TAB PO DAILY for 30 Days, #30 TAB Continued Medications: Cholecalciferol (Vitamin D3) 1,000 Unit Tab 3000 UNITS PO DAILY for 90 Days, TAB 3 Refills Escitalopram (Lexapro) 10 Mg Tab 5 MG PO DAILY, TAB Olmesartan/Hctz (Benicar Hct 20/12.5) Tab 1 TAB PO DAILY, TAB Omeprazole (Prilosec) 20 Mg Capcr 20 MG PO DAILY, CAP Discontinued Medications: Amoxicillin (Amoxil) 875 Mg Tab 1 TAB PO BID for 10 Days, #20 TAB Ibuprofen (Motrin) 800 Mg Tab 800 MG PO TIDM, TAB Discharge Exam Last 24 Hours Test 10/09/16 20:55 10/09/16 21:00 10/09/16 21:42 10/09/16 23:45 Urine Color YELLOW Urine Appearance CLEAR Urine pH 5.5 Urine Specific Schwertner 1.021 Urine Protein NEG Urine Glucose (UA) NEG Urine Ketones NEG Urine Occult Blood NEG Urine Nitrite NEG Urine Bilirubin NEG Urine Urobilinogen NEG Urine Leukocyte Esterase NEG Urine WBC (Auto) 0 /hpf Urine RBC (Auto) 5-10 /hpf Urine Hyaline Casts (Auto) 1-5 /lpf Urine Epithelial Cells (Auto) 20-30 /lpf Urine Bacteria (Auto) NEG White Blood Count 5.05 K/uL Red Blood Count 4.53 M/uL Hemoglobin 14.0 g/dL Hematocrit 40.3 % Mean Corpuscular Volume 89.0 fL Mean Corpuscular Hemoglobin 30.9 pg Mean Corpuscular Hemoglobin Concent 34.7 g/dl Platelet Count 185 K/uL Mean Platelet Volume 8.8 fL Neutrophils (%) (Auto) 74.2 % Lymphocytes (%) (Auto) 14.7 % Monocytes (%) (Auto) 7.9 % Eosinophils (%) (Auto) 3.0 % Basophils (%) (Auto) 0.2 % Neutrophils # (Auto) 3.75 K/uL Lymphocytes # (Auto) 0.74 K/uL Monocytes # (Auto) 0.40 K/uL Eosinophils # (Auto) 0.15 K/uL Basophils # (Auto) 0.01 K/uL RDW Standard Deviation 40.3 fL RDW Coefficient of Variation 12.5 % Immature Granulocyte % (Auto) 0.0 % Immature Granulocyte # (Auto) 0.00 K/uL Prothrombin Time 10.1 SECONDS Prothromb Time International Ratio 0.9 Activated Partial Thromboplast Time 25.2 SECONDS Partial Thromboplastin Ratio 1.0 Sodium Level 142 mmol/L Potassium Level 3.3 mmol/L Chloride Level 104 mmol/L Carbon Dioxide Level 28 mmol/L Anion Gap 10.0 mmol/L Blood Urea Nitrogen 21 mg/dl Creatinine 0.87 mg/dl Est Creatinine Clear Calc Drug Dose 74.3 ml/min Estimated GFR () 79.3 Estimated GFR (Non- 68.5 BUN/Creatinine Ratio 23.9 Random Glucose 121 mg/dl Calcium Level 9.1 mg/dl Magnesium Level 1.9 mg/dl Total Bilirubin 0.5 mg/dl Direct Bilirubin 0.1 mg/dl Aspartate Amino Transf (AST/SGOT) 113 U/L Alanine Aminotransferase (ALT/SGPT) 69 U/L Alkaline Phosphatase 92 U/L Total Protein 7.7 gm/dl Albumin 3.7 gm/dl Lipase 179 U/L Bedside Troponin I 0.000 ng/ml Total Creatine Kinase 51 U/L Creatine Kinase MB 0.7 ng/ml Creatine Kinase MB Ratio 1.4 Troponin I < 0.015 ng/ml Test 10/10/16 07:32 White Blood Count 3.27 K/uL Red Blood Count 4.20 M/uL Hemoglobin 13.0 g/dL Hematocrit 36.5 % Mean Corpuscular Volume 86.9 fL Mean Corpuscular Hemoglobin 31.0 pg Mean Corpuscular Hemoglobin Concent 35.6 g/dl Platelet Count 155 K/uL Mean Platelet Volume 8.4 fL Neutrophils (%) (Auto) 64.2 % Lymphocytes (%) (Auto) 24.5 % Monocytes (%) (Auto) 9.2 % Eosinophils (%) (Auto) 1.8 % Basophils (%) (Auto) 0.0 % Neutrophils # (Auto) 2.10 K/uL Lymphocytes # (Auto) 0.80 K/uL Monocytes # (Auto) 0.30 K/uL Eosinophils # (Auto) 0.06 K/uL Basophils # (Auto) 0.00 K/uL RDW Standard Deviation 40.2 fL RDW Coefficient of Variation 12.6 % Immature Granulocyte % (Auto) 0.3 % Immature Granulocyte # (Auto) 0.01 K/uL Sodium Level 143 mmol/L Potassium Level 3.8 mmol/L Chloride Level 105 mmol/L Carbon Dioxide Level 29 mmol/L Anion Gap 9.0 mmol/L Blood Urea Nitrogen 16 mg/dl Creatinine 0.72 mg/dl Est Creatinine Clear Calc Drug Dose 88.9 ml/min Estimated GFR () 99.7 Estimated GFR (Non- 86.1 BUN/Creatinine Ratio 21.8 Random Glucose 118 mg/dl Calcium Level 8.4 mg/dl Magnesium Level 2.1 mg/dl Total Creatine Kinase 44 U/L Creatine Kinase MB 0.8 ng/ml Creatine Kinase MB Ratio 1.8 Troponin I < 0.015 ng/ml CT ANGIOGRAM OF THE CHEST CLINICAL HISTORY: Atypical chest pain COMPARISON STUDY: No previous studies for comparison. TECHNIQUE: Following the IV administration of 114 mL of Optiray-320, CT angiogram of the thorax was performed from the thoracic inlet to the lung bases utilizing the pulmonary embolus protocol. Images are reviewed in the axial, sagittal, and coronal planes. IV contrast was administered without complication. MIP imaging was performed. CT DOSE: 2177.16 mGy.cm FINDINGS: There is a hiatal hernia. Mediastinal left hilar lymph nodes are at the upper limits of normal in size. There was no evidence of thoracic aortic dilatation. There were no pulmonary artery filling defects to indicate acute pulmonary embolism. No pleural effusions are visualized. There are minor dependent atelectatic changes present. There is no focal pulmonary consolidation. IMPRESSION: 1. No CT evidence of acute pulmonary embolism 2. No evidence of focal pulmonary consolidation 3. Hiatal hernia 4. Mediastinal and hilar lymph nodes at the upper limits of normal in size CT ABD/PELVIS IV CONTRAST ONLY CLINICAL HISTORY: epigastric pain COMPARISON STUDY: Abdominal series dated 10/09/2016 TECHNIQUE: Following the IV administration of 114 mL of Optiray-320, CT scan of the abdomen and pelvis was performed from the lung bases to the proximal femurs. Images are reviewed in the axial, sagittal, and coronal planes. IV contrast was administered without complication. CT DOSE: FINDINGS: Lower chest: There are minimal atelectatic changes present. There is a moderate hiatal hernia. Liver: The contrast-enhanced liver is normal in size, contour, and attenuation. There is no intrahepatic biliary ductal dilatation. The hepatic veins and portal veins are patent. Gallbladder: Surgically absent Spleen: Normal in size and attenuation. Pancreas: Unremarkable. Adrenal glands: Unremarkable. Kidneys: There is a 4 mm left renal hypodensity, likely representing a cyst. No solid renal masses are visualized. There is no hydronephrosis. Bowel: There are no transition zones indicate bowel obstruction. The appendix appears normal. There is colonic diverticulosis. There are no acute peridiverticular inflammatory changes. Peritoneum: There is no intraperitoneal free air or abdominal ascites. Vasculature: The abdominal aorta is normal in course and caliber. Adenopathy: None. Pelvic viscera: The uterus appears surgically absent Skeletal structures: No destructive osseous lesions are seen. IMPRESSION: 1. No evidence of bowel obstruction. No evidence of free air 2. Normal appendix 3. Diverticulosis. No evidence of acute peridiverticular inflammatory change 4. Hiatal hernia 5. Surgically absent gallbladder and uterus. Review of Systems: Constitutional: No fever Respiratory: + cough, No shortness of breath Cardiovascular: No chest pain Abdomen: No nausea, No pain, No vomiting Physical Exam: General Appearance: no apparent distress Respiratory/Chest: lungs clear, no respiratory distress Cardiovascular: regular rate, rhythm Abdomen / GI: normal bowel sounds, non tender, soft Neurologic/Psychiatric: alert, oriented x 3 Hospital Course 66 y/o F here with complaint of intermittent epigastric and precordial chest pain. Her pain began at rest, while sitting in a chair, with duration approximately 15 minutes, and later accompanied by diaphoresis and then 1 episode of vomiting. She reported that laying down improved her symptoms. The symptoms did go away completely, however, when they return later on in the evening without the chest discomfort, she decided to come to emergency department for assessment. She has had upper respiratory infection symptoms over the past 3 weeks, along with a cough and sore throat, and was started on amoxicillin and Zyrtec by her PCP a few days ago. Precordial chest pain/hypertension/hypokalemia-- Kept on Tele and ruled out for ACS. Pain atypical - present bilaterally across the chest and likely secondary to esophageal spasm due to her hiatal hernia. Acute bacterial bronchitis - Received one dose of ceftriaxone here. Home on omnicef. GERD/hiatal hernia--omeprazole. Discussed lifestyle modification. Depression/anxiety--continue Lexapro 5 mg by mouth daily. Abnormal liver enzymes-- Outpatient follow up Mediastinal and hilar lymphadenopathy at upper limits of normal-- To consider repeat CT in 3-6 months. Total Time Spent: Greater than 30 minutes This includes examination of the patient, discharge planning, medication reconciliation, and communication with other providers. Discharge Instructions Please refer to the electronic Patient Visit Report (Discharge Instructions) for additional information. Additional Copies To Georgi Cazares M.D.
[2016-10-10] MEDS ORDERED: FAMOTIDINE 20 MG TAB PO SCH (21:00)
[2016-12-21] MEDS ORDERED: B-COTAB53 PO (09:23)
[2016-12-21] MEDS ORDERED: POTA20TA16 PO (09:23)
[2016-12-21] MEDS ORDERED: MULT-513 PO (09:23)
== END 2016-10-10 13:45 | disposition home or self-care (01) | DRG 313 ==
LOC: ENRESERVDT → ENRESERVTM → EDBD 20:42 → C.EDC 20:45 → C.2T 23:29
PROVIDERS: ADMIT Hospitalist; ATTEND Family Medicine
DX: R07.2 Precordial pain (principal); J20.9 Acute bronchitis, unspecified; B96.89 Other specified bacterial agents as the cause of diseases classified elsewhere; I10 Essential (primary) hypertension; E87.6 Hypokalemia; K21.9 Gastro-esophageal reflux disease without esophagitis; K44.9 Diaphragmatic hernia without obstruction or gangrene; F32.9 Major depressive disorder, single episode, unspecified; F41.9 Anxiety disorder, unspecified; Z79.899 Other long term (current) drug therapy

== ENCOUNTER → 2016-12-24 | Day surgery (SDC) | payer BC ==
[2016-12-21 09:25] VITALS: BMI 43.0
[~2016-12-24] VITALS: Ht 157.5 cm; Wt 106.8 kg
[~2016-12-24] MED LIST changes: -AMOX875T3 PO; -CEFD1CAP14 PO; -ERGO500037 PO; -IBUP-1428 PO; +LIDOCAINE HCL 2% 2 ML VIAL (20MG/ML) ONE; +MIDAZOLAM HCL 1 MG/ML 2ML VIAL ONE; +ONDANSETRON INJ 2 MG/ML 2 ML VIAL ONE; -POTA-65 PO; +PROPOFOL IV EMULSION 10 MG/ML 20 ML VIAL IV ONE; +SODIUM CHLORIDE 0.9% 500ML 500 ML IV ONE
[2016-12-24 09:10] VITALS: Ht 157.5 cm; Wt 106.8 kg
--- NOTE | 2016-12-24 10:08 | Endo History and Physical ---
History & Physical Date of Service: December 24, 2016. Chief Complaint: HIATAL HERNIA Referring Physician: DR MARLEE STEPHEN, DR MARGIE GUZMAN History of Present Illness 66 yo CF who presents for EGD secondary to hiatal hernia Past Surgical History Hx Cardiac Surgery: No Hx Internal Defibrillator: No Hx Pacemaker: No Hx Abdominal Surgery: Yes (AIDAN BSO, TESSIE) Hx of Implantable Prosthesis: No Hx Post-Op Nausea and Vomiting: No Hx Cancer Surgery: No Hx Thoracic Surgery: No Hx Orthopedic: Yes (LT WRIST REPAIR S/P FRACTURE) Hx Urinary Tract Surgery: No Family History Colon CA, Polyp Social History Smoking Status: Never Smoker Hx Substance Use: No Hx Alcohol Use: Yes (1-2 GLASSES WINE 3-4X/WEEK) Allergies Coded Allergies: NO KNOWN DRUG ALLERGIES (Verified Allergy, Unknown, none, 12/21/16) Current Medications Reported Home Medications Medications Dose Route/Sig Max Daily Dose Days Date Category B Complex (B-Complex W/ Folic Acid) 1 Tab Tab 1 Tab PO QAM 12/21/16 Reported Mvi With Minerals (Multivitamins/Minerals) Tab 1 Tab PO QAM 12/21/16 Reported Vitamin D3 (Cholecalciferol) 1,000 Unit Tab 3,000 Units PO QAM 10/09/16 Reported Prilosec (Omeprazole) 20 Mg Capcr 20 Mg PO QAM 10/09/16 Reported Lexapro (Escitalopram Oxalate) 10 Mg Tab 5 Mg PO QAM 10/09/16 Reported Benicar Hct 20/12.5 (Olmesartan/HCTZ) Tab 1 Tab PO QAM 10/09/16 Reported Vital Signs Weight (Kilograms): 106.82 Height (Feet): 5 Height (Inches): 2 Date Time Temp Pulse Resp B/P Pulse Ox O2 Delivery O2 Flow Rate FiO2 12/24/16 09:08 36.7 61 18 112/69 96 Room Air Physical Exam General Appearance: WD/WN, no apparent distress Respiratory/Chest: Auscultation: breath sounds normal Cardiovascular: Heart Auscultation: RRR Abdomen: Bowel Sounds: normal Inspection & Palpation: soft, non-distended, no tenderness, guarding & rebound Assessment and Plan Assessment: 66 yo CF who presents for EGD secondary to hiatal hernia Plan: Proceed with EGD.
--- NOTE | 2016-12-24 10:17 | Discharge Instructions ---
Endoscopy Patient Instructions Date / Procedure(s) Performed December 24, 2016. EGD Allergy Information Coded Allergies: NO KNOWN DRUG ALLERGIES (Verified Allergy, Unknown, none, 12/21/16) Discharge Date / Findings December 24, 2016. Hiatal hernia Gastric antrum biopsies Provider Instructions Activity Restrictions - No exercising or heavy lifting for 24 hours. - Do not drink alcohol the day of the procedure. - Do not drive a car or operate machinery until the day after the procedure. - Do not make any important decisions or sign important papers in 24 hours after the procedure. Following Day: - Return to full activity which may include returning to work/school. Diet Start your diet with liquids and light foods (jello, soup, juice, toast). Then eat your usual diet if not nauseated. Treatment For Common After Affects For mild abdominal pain, bloating, or excessive gas: - Rest - Eat lightly - Lie on right side Follow-Up Information Follow-up with DR MARLEE STEPHEN, DR MARGIE GUZMAN as scheduled Anesthesia Information What You Should Know You have had a procedure that required some medicine to reduce anxiety and discomfort. This treatment is called moderate sedation. After receiving the treatment, you may be sleepy, but you will be able to breathe on your own. The effects of the treatment may last for several hours. Follow these instructions along with Activity/Diet recommendations noted above: * Do NOT do anything where dizziness or clumsiness would be dangerous. * Rest quietly at home today, then you can be up and about tomorrow. * Have a responsible person stay with you the rest of today. * You may have had an I.V. today. If so, you may take the dressing off later today. Recommendations Call your doctor if: * Trouble breathing * Continuous vomiting for more than 24 hours * Temperature above 101 degrees * Severe abdominal pain or bloating * Pain not relieved by pain medicine ordered * There is increased drainage or redness from any incision * A large amount of rectal bleeding greater than 2-3 tablespoons. (If you had a polyp/s removed or have hemorrhoids, a small amount of blood - from the rectum is to be expected.) * You have any unanswered questions or concerns. IN THE EVENT OF A SERIOUS EMERGENCY, GO TO THE NEAREST EMERGENCY ROOM Your discharge instructions were prepared by provider Italo Johnson. Patient Instructions Signature Page Yamilet Joe Patient (or Guardian) Signature/Date: I have read and understand the instructions given to me by my caregivers. Caregiver/RN/Doctor Signature/Date: The above-named patient and/or guardian has received patient instructions on this date. + Original Patient Signature Page (only) stays with chart. Please make copy for patient.
--- NOTE | 2016-12-24 10:21 | GI REPORT ---
Procedure Date: 12/24/2016 9:38 AM Procedure: Upper GI endoscopy Indications: Hiatal hernia Medicines: Monitored Anesthesia Care Complications: No immediate complications. Estimated Blood Loss: Estimated blood loss: none. Procedure: Pre-Anesthesia Assessment: - Prior to the procedure, a History and Physical was performed, and patient medications and allergies were reviewed. The patient's tolerance of previous anesthesia was also reviewed. The risks and benefits of the procedure and the sedation options and risks were discussed with the patient. All questions were answered, and informed consent was obtained. Prior Anticoagulants: The patient has taken no previous anticoagulant or antiplatelet agents. ASA Grade Assessment: II - A patient with mild systemic disease. After reviewing the risks and benefits, the patient was deemed in satisfactory condition to undergo the procedure. After obtaining informed consent, the endoscope was passed under direct vision. Throughout the procedure, the patient's blood pressure, pulse, and oxygen saturations were monitored continuously. The scope was introduced through the mouth, and advanced to the second part of duodenum. The upper GI endoscopy was accomplished without difficulty. The patient tolerated the procedure well. Findings: The esophagus was normal. A medium-sized hiatus hernia was present. Biopsies were taken with a cold forceps in the gastric antrum for Helicobacter pylori testing. The examined duodenum was normal. Impression: - Normal esophagus. - Medium-sized hiatus hernia. - Normal examined duodenum. - Biopsies were taken with a cold forceps for Helicobacter pylori testing. Recommendation: - Resume previous diet. - Continue present medications. - Await pathology results. - Return to primary care physician as previously scheduled. Italo Johnson DO 12/24/2016 10:21:41 AM This report has been signed electronically. Note Initiated On: 12/24/2016 9:38 AM I attest to the content of the Intraoperative Record and orders documented therein, exceptions below
[2016-12-24 10:49] VITALS: BP 136/74; PULSE 66; O2SAT 97
--- NOTE | 2016-12-24 10:54 | Anesthesiology Progress Note ---
Anesthesia Post Op Note Date & Time December 24, 2016 at 10:54 Vital Signs Pain Intensity: 0 Vital Signs Past 12 Hours Date Time Temp Pulse Resp B/P Pulse Ox O2 Delivery O2 Flow Rate FiO2 12/24/16 10:49 66 20 136/74 97 Room Air 12/24/16 10:37 67 16 99/40 97 Room Air 12/24/16 10:28 63 16 106/46 97 Room Air 12/24/16 09:08 36.7 61 18 112/69 96 Room Air Notes Mental Status: alert / awake / arousable, participated in evaluation Pt Amnestic to Procedure: Yes Nausea / Vomiting: adequately controlled Pain: adequately controlled Airway Patency, RR, SpO2: stable & adequate BP & HR: stable & adequate Hydration State: stable & adequate Anesthetic Complications: no major complications apparent
== END | disposition home or self-care (01) ==
LOC: C.GI 08:43
PROVIDERS: ATTEND Internal Medicine
DX: K44.9 Diaphragmatic hernia without obstruction or gangrene (principal); K29.70 Gastritis, unspecified, without bleeding; Z90.49 Acquired absence of other specified parts of digestive tract; Z87.81 Personal history of (healed) traumatic fracture; K21.9 Gastro-esophageal reflux disease without esophagitis; M19.90 Unspecified osteoarthritis, unspecified site; E66.01 Morbid (severe) obesity due to excess calories

== ENCOUNTER → 2016-12-28 | Outpatient (CLI) | payer BC ==
[~2016-12-28] MED LIST changes: -LIDOCAINE HCL 2% 2 ML VIAL (20MG/ML) ONE; -MIDAZOLAM HCL 1 MG/ML 2ML VIAL ONE; -ONDANSETRON INJ 2 MG/ML 2 ML VIAL ONE; -POTA20TA16 PO; -PROPOFOL IV EMULSION 10 MG/ML 20 ML VIAL IV ONE; -SODIUM CHLORIDE 0.9% 500ML 500 ML IV ONE
[2016-12-28 17:49] LABS: BASO % 0.1 %; BASO ABS # 0.01 K/uL (0-0.2); COMPLETE YES; EOS % 3.3 %; HEMATOCRIT 41.6 % (37-47); IG% 0.1 %; LYMPH % 24.5 %; MEAN CELL VOLUME 89.1 fL (80-100); MEAN CORPUSCULAR HEMOGLOBIN 30.8 pg (25-34); MEAN CORPUSCULAR HGB CONC 34.6 g/dl (32-36); MONO % 6.6 %; NEUT % 65.4 %; PLATELET COUNT 268 K/uL (130-400); RED BLOOD COUNT 4.67 M/uL (4.2-5.4); WHITE BLOOD COUNT 6.94 K/uL (4.8-10.8)
[2016-12-28 17:54] LABS: ALT/SGPT 27 U/L (12-78); AST/SGOT 15 U/L (15-37); BLOOD UREA NITROGEN 16 mg/dl (7-18); CARBON DIOXIDE 30 mmol/L (21-32); CHLORIDE 105 mmol/L (98-107); CREATININE 0.75 mg/dl (0.60-1.20); GLUCOSE 117 mg/dl (70-99); POTASSIUM 3.6 mmol/L (3.5-5.1); SODIUM 141 mmol/L (136-145)
[2016-12-28 18:05] LABS: ALKALINE PHOSPHATASE 82 U/L (45-117); RHEUMATOID FACTOR < 10.0 U/mL (0-15)
[2016-12-28 18:48] LABS: LYME DISEASE AB IGG NEG (NEG)
[2016-12-28 18:50] LABS: LYME DISEASE AB IGM EQUIVOCAL (NEG)
[2017-01-03 10:44] LABS: 18KDIGG BAND NONREACTIVE (NONREACTIVE); 23KDIGG BAND NONREACTIVE (NONREACTIVE); 23KDIGM BAND REACTIVE (NONREACTIVE); 28KDIGG BAND NONREACTIVE (NONREACTIVE); 30KDIGG BAND NONREACTIVE (NONREACTIVE); 39KDIGG BAND NONREACTIVE (NONREACTIVE); 39KDIGM BAND NONREACTIVE (NONREACTIVE); 41KDIGG BAND REACTIVE (NONREACTIVE); 41KDIGM BAND REACTIVE (NONREACTIVE); 45KDIGG BAND NONREACTIVE (NONREACTIVE); 58KDIGG BAND NONREACTIVE (NONREACTIVE); 66KDIGG BAND NONREACTIVE (NONREACTIVE); 93KDIGG BAND NONREACTIVE (NONREACTIVE)
--- NOTE | 2017-01-04 11:58 | CODING QUERY MEDICAL NECESSITY ---
SUPPORTING DIAGNOSIS NEEDED Dr. Cazares, A supporting diagnosis is required for the test/procedure performed on this patient in order for us to be reimbursed by the patient's insurance. Please provide a supporting diagnosis for the following test/procedure listed below next to the test name along with your signature. *If there is no additional diagnosis for this patient that would support the following test/procedure please document that below next to the test/procedure. Test(s)/Procedure(s) that require a supporting diagnosis: * ([id number]) VITAMIN D ASSAY DIAGNOSIS: * ([id number]) B12 VITAMIN LEVEL DIAGNOSIS: DATE OF SERVICE: 12/28/16 Provider Signature: Date: Thank you Karthik [facility] Information Management Once completed, please kindly fax back to [phone] For questions please call [phone]
== END | disposition home or self-care (01) ==
LOC: C.LABPVFM 14:49
PROVIDERS: ATTEND Family Medicine
DX: R53.83 Other fatigue (principal); M25.60 Stiffness of unspecified joint, not elsewhere classified; T14.8 Other injury of unspecified body region; W57.XXXA Bitten or stung by nonvenomous insect and other nonvenomous arthropods, initial encounter; E55.9 Vitamin D deficiency, unspecified

== ENCOUNTER → 2017-01-05 | Outpatient (CLI) | payer BC ==
--- NOTE | 2017-01-05 09:53 | DIAGNOSTIC IMAGING REPORT ---
RIGHT HAND MIN 3 VIEWS ROUTINE CLINICAL HISTORY: LEFT KNEE PAIN, SANCHEZ POSITIVE Right pain COMPARISON: None. DISCUSSION: Considerable degenerative changes of the interphalangeal joints throughout. Moderate degenerative change of the intercarpal region. Findings consistent with old fracture of the distal radius. There is no evidence for soft tissue swelling. IMPRESSION: Moderate degenerative change of all major osseous structures. Old healed fracture distal radius. Electronically signed by: Adolfo French M.D. 01/05/2017 9:51 AM Dictated Date/Time: 01/05/2017 9:51 AM
--- NOTE | 2017-01-05 09:54 | DIAGNOSTIC IMAGING REPORT ---
LEFT HAND MIN 3 VIEWS ROUTINE CLINICAL HISTORY: R53.83 [id number] Left knee painR76.8 SANCHEZ [id number] T pain COMPARISON: None. DISCUSSION: Mild degenerative change of the interphalangeal joints throughout. No significant periarticular osteopenia. No significant marginal erosions. There is no evidence for soft tissue swelling. 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 Electronically signed by: Adolfo French M.D. 01/05/2017 9:53 AM Dictated Date/Time: 01/05/2017 9:53 AM
--- NOTE | 2017-01-05 09:55 | DIAGNOSTIC IMAGING REPORT ---
LEFT KNEE 3 VIEWS CLINICAL HISTORY: R53.83 [id number] Left knee painR76.8 SANCHEZ [id number] T pain COMPARISON: None. DISCUSSION: Moderate degenerative change patellofemoral and medial joint compartments. Lateral joint compartment is well-preserved. Mild reactive osteophytic reaction. No significant joint effusion. There is no evidence for soft tissue swelling. IMPRESSION: Moderate degenerative change medial joint compartment and patellofemoral joint regions. No acute process. Electronically signed by: Adolfo French M.D. 01/05/2017 9:54 AM Dictated Date/Time: 01/05/2017 9:53 AM
--- NOTE | 2017-01-05 09:55 | DIAGNOSTIC IMAGING REPORT ---
RIGHT KNEE 3 VIEWS CLINICAL HISTORY: Right knee pain. FINDINGS: AP, lateral, and sunrise views of the right knee are obtained. No prior studies are available for comparison at the time of dictation. The skeletal structures are osteopenic. No fracture is seen. There is mild tricompartmental degenerative joint space narrowing, greatest at the patellofemoral articulation. Small patellar enthesophytes are identified and there are tiny lateral marginal osteophytes. No erosive change is suspected. There is no significant joint effusion. The overlying soft tissues are within normal limits. IMPRESSION: Osteopenia and mild degenerative change as above. No acute bony abnormality is seen. Electronically signed by: Trung Marques M.D. 01/05/2017 9:54 AM Dictated Date/Time: 01/05/2017 9:53 AM
[2017-01-05 10:48] LABS: URINE APPEARANCE CLEAR (CLEAR); URINE BILIRUBIN NEG (NEG); URINE COLOR YELLOW; URINE EPITHELIAL CELL AUTO >30 /lpf (0-5); URINE NITRITE NEG (NEG); URINE PH 7.5 (4.5-7.5); URINE SPECIFIC GRAVITY 1.026 (1.000-1.030); UROBILINOGEN NEG (NEG)
[2017-01-05 10:49] LABS: MANUAL MICROSCOPIC REQUIRED? NO; REVIEW REQ? NO
[2017-01-08 05:39] LABS: ANTI-CENTROMERE AB <1.0 NEG AI (<1.0 NEG); ANTI-SS-A <1.0 NEG AI (<1.0 NEG); ANTI-SS-B <1.0 NEG AI (<1.0 NEG); DNA ds CRITHIDIA NEGATIVE (NEGATIVE); Sm Antibody <1.0 NEG AI (<1.0 NEG)
[2017-01-10 14:22] LABS: ANA TITER 1:40 TITER (<1:40)
== END | disposition home or self-care (01) ==
LOC: C.RAD1850 09:02
PROVIDERS: ATTEND Internal Medicine Rheumatology
DX: M25.562 Pain in left knee (principal); R53.83 Other fatigue; R76.8 Other specified abnormal immunological findings in serum; T14.8 Other injury of unspecified body region; W57.XXXA Bitten or stung by nonvenomous insect and other nonvenomous arthropods, initial encounter; I10 Essential (primary) hypertension; E78.5 Hyperlipidemia, unspecified; E55.9 Vitamin D deficiency, unspecified; R31.29 Other microscopic hematuria

== ENCOUNTER → 2017-03-08 | Outpatient (CLI) | payer BC ==
--- NOTE | 2017-03-15 06:54 | CODING QUERY MEDICAL NECESSITY ---
CQSUPPORTING DIAGNOSIS NEEDED A supporting diagnosis is required for the test/procedure performed on this patient in order for us to be reimbursed by the patient's insurance. Please provide a supporting diagnosis for the following test/procedure listed below next to the test name along with your signature. *If there is no additional diagnosis for this patient that would support the following test/procedure please document that below next to the test/procedure. Test(s)/Procedure(s) that require a supporting diagnosis: PRIYANKA 03/08/17 BONE MINERAL DENSITY STUDY Provider Signature: Date: Thank you Corinna Baker [facility] Information Management Once completed, please kindly fax back to [phone] For questions please call [phone]
== END | disposition home or self-care (01) ==
LOC: C.MAMM 10:27
PROVIDERS: ATTEND Internal Medicine Rheumatology
DX: R76.8 Other specified abnormal immunological findings in serum (principal); S83.90XA Sprain of unspecified site of unspecified knee, initial encounter; X58.XXXA Exposure to other specified factors, initial encounter; W57.XXXA Bitten or stung by nonvenomous insect and other nonvenomous arthropods, initial encounter; M85.80 Other specified disorders of bone density and structure, unspecified site

== ENCOUNTER → 2017-04-20 | Outpatient (CLI) | payer BC ==
[2017-04-20 18:11] LABS: BLOOD UREA NITROGEN 19 mg/dl (7-18); BUN/CREATININE RATIO 24.2 (10-20); CREATININE 0.77 mg/dl (0.60-1.20)
== END | disposition home or self-care (01) ==
LOC: C.LABPVFM 11:24
PROVIDERS: ATTEND Physician Assistant
DX: R93.8 Abnormal findings on diagnostic imaging of other specified body structures (principal)

== ENCOUNTER → 2017-04-25 | Outpatient (CLI) | payer BC ==
[~2017-04-25] MED LIST changes: +OPTIRAY 320 IV PRN
--- NOTE | 2017-04-25 10:44 | DIAGNOSTIC IMAGING REPORT ---
CHEST CT WITH CONTRAST CT DOSE: 704.43 mGycm HISTORY: Follow-up study to assess abnormality seen on a CT scan from December 2016 which may have been obtained at an outside facility as no comparison CT is available from December 2016. Follow-up study without acute symptoms reported. R93.8 Abnormal CAT scan TECHNIQUE: Multiaxial CT images of the chest were performed following the intravenous administration of 93 mL Optiray 320. A dose lowering technique was utilized adhering to the principles of ALARA. COMPARISON: CT of the chest 10/09/2016. FINDINGS: Thyroid is homogeneous. No pathologic adenopathy of the chest identified. Lymph nodes measuring the upper limits of normal are again seen within the right paratracheal distribution measuring up to 9 mm in short axis, unchanged from 10/09/2016. Heart is moderately enlarged without pericardial effusion. Coronary arterial calcifications are present. There is no aortic dissection or aneurysm identified. Atherosclerotic plaquing is seen at the origin of the left renal artery without high-grade stenosis seen. There is no pneumothorax or pleural effusion. There is minimal dependent bibasilar atelectasis. 2 mm pleural-based noncalcified nodule is seen within the inferior segment lingula on image 161. No suspicious pulmonary nodules are identified. The central airways are patent. Moderate hiatal hernia with partially intrathoracic stomach is seen. Prior cholecystectomy. Soft tissues are unremarkable. Bones appear intact. Multilevel endplate spurring seen throughout the thoracic spine. IMPRESSION: 1. Mild cardiomegaly without acute intrathoracic abnormality identified. 2. A few mediastinal lymph nodes are again seen measuring in the upper limits of normal, likely physiologic. 3. 2 mm pleural-based noncalcified pulmonary nodule of the inferior segment lingula is likely benign. 4. Moderate sized hiatal hernia with partially intrathoracic stomach. 5. Prior cholecystectomy. Electronically signed by: Thomas Gibson M.D. 04/25/2017 10:43 AM Dictated Date/Time: 04/25/2017 10:35 AM
== END | disposition home or self-care (01) ==
LOC: C.CTS 10:00
PROVIDERS: ATTEND Physician Assistant
DX: R93.8 Abnormal findings on diagnostic imaging of other specified body structures (principal); R91.1 Solitary pulmonary nodule; K44.9 Diaphragmatic hernia without obstruction or gangrene; Z90.49 Acquired absence of other specified parts of digestive tract

== ENCOUNTER → 2017-08-09 | Outpatient (CLI) | payer BC ==
[~2017-08-09] MED LIST changes: -OPTIRAY 320 IV PRN
== END | disposition home or self-care (01) ==
LOC: C.LABPVFM 10:03
PROVIDERS: ATTEND Family Medicine
DX: E55.9 Vitamin D deficiency, unspecified (principal)

== ENCOUNTER → 2017-08-31 | Outpatient (CLI) | payer BC ==
[2017-08-31 12:36] LABS: BASO % 0.2 %; BASO ABS # 0.01 K/uL (0-0.2); EOS % 5.6 %; EOS ABS # 0.24 K/uL (0-0.5); HEMATOCRIT 39.2 % (37-47); HEMOGLOBIN 13.2 g/dL (12.0-16.0); IG# 0.01 K/uL (0.00-0.02); LYMPH % 22.6 %; LYMPH ABS # 0.97 K/uL (1.2-3.4); MEAN CELL VOLUME 91.4 fL (80-100); MEAN CORPUSCULAR HEMOGLOBIN 30.8 pg (25-34); MEAN CORPUSCULAR HGB CONC 33.7 g/dl (32-36); MEAN PLATELET VOLUME 9.3 fL (7.4-10.4); MONO % 9.6 %; MONO ABS # 0.41 K/uL (0.11-0.59); NEUT % 61.8 %; NEUT ABS # 2.65 K/uL (1.4-6.5); PLATELET COUNT 209 K/uL (130-400); RED CELL DISTRIBUTION WIDTH CV 12.8 % (11.5-14.5); RED CELL DISTRIBUTION WIDTH SD 42.6 fL (36.4-46.3); WHITE BLOOD COUNT 4.29 K/uL (4.8-10.8)
[2017-08-31 13:30] LABS: ALBUMIN 3.6 gm/dl (3.4-5.0); ALT/SGPT 23 U/L (12-78); CREATININE 0.78 mg/dl (0.60-1.20)
[2017-08-31 13:33] LABS: ALKALINE PHOSPHATASE 57 U/L (45-117); AST/SGOT 13 U/L (15-37); TOTAL PROTEIN 7.4 gm/dl (6.4-8.2)
== END | disposition home or self-care (01) ==
LOC: C.LABPVFM 09:32
PROVIDERS: ATTEND Internal Medicine Rheumatology
DX: R76.8 Other specified abnormal immunological findings in serum (principal); M79.641 Pain in right hand; M79.642 Pain in left hand; Z79.1 Long term (current) use of non-steroidal anti-inflammatories (NSAID)

== ENCOUNTER → 2017-11-17 | Outpatient (CLI) | payer BC ==
[2017-11-17 14:31] VITALS: BP 142/74; PULSE 94; Ht 157.5 cm
== END | disposition home or self-care (01) ==
LOC: C.NEUR 13:50
PROVIDERS: ATTEND Physician Assistant
DX: G47.30 Sleep apnea, unspecified (principal)

== ENCOUNTER → 2017-11-21 | Outpatient (CLI) | payer BC ==
--- NOTE | 2017-11-21 14:22 | DIAGNOSTIC IMAGING REPORT ---
CHEST 2 VIEWS ROUTINE CLINICAL HISTORY: Shortness of breath COMPARISON STUDY: 10/09/2016 FINDINGS: The heart is enlarged. There is a retrocardiac opacity containing air consistent with a hiatal hernia. There is no failure. There is no focal pulmonary consolidation. There are no pleural effusions.[ IMPRESSION: Cardiomegaly. Hiatal hernia. No active disease in the chest. Electronically signed by: Danny Huizar M.D. 11/21/2017 2:21 PM Dictated Date/Time: 11/21/2017 2:20 PM
== END | disposition home or self-care (01) ==
LOC: C.RADPV 13:42
PROVIDERS: ATTEND Family Medicine
DX: R06.02 Shortness of breath (principal); I51.7 Cardiomegaly; K44.9 Diaphragmatic hernia without obstruction or gangrene

== ENCOUNTER → 2017-11-23 | Outpatient (CLI) | payer BC ==
[2017-11-23 12:59] LABS: BASO % 0.3 %; BASO ABS # 0.01 K/uL (0-0.2); EOS % 3.4 %; EOS ABS # 0.13 K/uL (0-0.5); HEMATOCRIT 39.7 % (37-47); HEMOGLOBIN 13.7 g/dL (12.0-16.0); IG# 0.01 K/uL (0.00-0.02); LYMPH % 22.7 %; LYMPH ABS # 0.88 K/uL (1.2-3.4); MEAN CELL VOLUME 88.4 fL (80-100); MEAN CORPUSCULAR HEMOGLOBIN 30.5 pg (25-34); MEAN CORPUSCULAR HGB CONC 34.5 g/dl (32-36); MEAN PLATELET VOLUME 9.3 fL (7.4-10.4); MONO % 8.2 %; MONO ABS # 0.32 K/uL (0.11-0.59); NEUT % 65.1 %; NEUT ABS # 2.53 K/uL (1.4-6.5); PLATELET COUNT 204 K/uL (130-400); RED CELL DISTRIBUTION WIDTH CV 12.6 % (11.5-14.5); RED CELL DISTRIBUTION WIDTH SD 40.3 fL (36.4-46.3); WHITE BLOOD COUNT 3.88 K/uL (4.8-10.8)
[2017-11-23 13:21] LABS: HEMOGLOBIN A1C 5.4 % (4.5-5.6)
[2017-11-23 14:51] LABS: ALBUMIN 3.7 gm/dl (3.4-5.0); ALT/SGPT 23 U/L (12-78); AST/SGOT 12 U/L (15-37); BLOOD UREA NITROGEN 23 mg/dl (7-18); CALCIUM 9.2 mg/dl (8.5-10.1); CARBON DIOXIDE 25 mmol/L (21-32); CREATININE 0.78 mg/dl (0.60-1.20); GLUCOSE 114 mg/dl (70-99); SODIUM 140 mmol/L (136-145)
[2017-11-23 15:02] LABS: ALKALINE PHOSPHATASE 60 U/L (45-117); TOTAL PROTEIN 7.7 gm/dl (6.4-8.2)
== END | disposition home or self-care (01) ==
LOC: C.LABPVFM 09:33
PROVIDERS: ATTEND Family Medicine
DX: F32.9 Major depressive disorder, single episode, unspecified (principal); Z12.11 Encounter for screening for malignant neoplasm of colon

== ENCOUNTER 2020-07-12 14:30 | Inpatient (IN) ==
[2020-07-12] MEDS ORDERED: ONDANSETRON INJ 2 MG/ML 2 ML VIAL IV STA (15:21)
[2020-07-12] MEDS ORDERED: HYDROmorphone INJ 0.5 MG/0.5 ML SYR IV PRN ×2 (15:21→21:33)
--- NOTE | 2020-07-12 15:50 | Emergency Department Note ---
Impression & Plan Lumbar radiculopathy, acute ED Provider Note INFORMANT: Patient ED PROVIDER(S): Yao Flores MD CHIEF COMPLAINT: Back and right leg pain PLAN: Disposition: Admitted Condition: Good MEDICAL DECISION MAKING: Patient presented because of sciatic type symptoms. She was very uncomfortable. An IV was established. Dilaudid and Zofran ordered. She was also given IV Ativan to assist with MRI. She underwent MRI and she has significant degenerative changes with disc bulging throughout the lumbar spine. The patient was not able to get up and ambulate well. She has not been doing well despite using prednisone and oxycodone at home. She was given a dose of IV Decadron. I discussed outpatient versus inpatient treatment. The patient does not feel she is doing well at home. At that point I placed a [facility] to her intractable symptoms of the lumbar radiculopathy. Evaluate the patient in the ER and admit her for further management. Triage Nursing notes reviewed and agree them. Additional history obtained from family Prior medical records reviewed regarding her last visit and treatment with the steroids and pain medication. Vital Signs: reviewed and remarkable for no significant abnormalities Differential diagnosis: Musculoskeletal, disc herniation, fracture, metastatic disease, cord compression, discitis, sciatica, cauda equina, infection, aortic disease, renal colic, gastrointestinal, as well as other pathologies. Diagnostics interpreted by me: Unremarkable CBC and chemistry panel except for mild anemia. Imaging studies: Lumbar spine: Marrow signal intensity is heterogeneous. Vertebral body height is maintained throughout the lumbar spine. There is 6 mm of anterolisthesis at L4- L5. Minimal retrolisthesis is seen at L1-L2 and L2-L3. Small anterior and lateral marginal osteophytes are seen throughout. The transverse and spinous processes appear intact. Hemangiomas are seen in the bodies of T12, L2, L4, and L5. No destructive bony lesion is seen. There is chronic degenerative endplate change noted at L1-L2, L3-L4, and L5-S1. Mild endplate edema is noted at L2-L3. Intervertebral discs: Degenerative disc desiccation and loss of height is seen throughout the lumbar spine. Loss of height is moderate at all levels and severe at L2-L3. Spinal cord: The visualized spinal cord is normal in morphology and signal intensity. The conus medullaris terminates at the level of L2. The nerve roots of the cauda equina are normal in morphology. T12-L1: There is minimal posterior disc bulge. The central canal is clear. There is moderate left-sided neural foraminal stenosis. L1-L2: There is minimal posterior disc bulge. The central canal is clear. There is mild bilateral subarticular stenosis. In conjunction with facet arthropathy there is mild left and [id number] right neural foraminal stenosis. L2-L3: There is a large posterior disc osteophyte complex. In conjunction with hypertrophy of the ligamentum flavum there is mild to moderate central canal stenosis at this level with a minimum AP diameter of 7 mm. There is bilateral subarticular stenosis with probable impingement on the exiting bilateral L2 nerve roots. This also abuts the transiting nerve roots. In conjunction with facet arthropathy there is moderate to severe bilateral neural foraminal stenosis. L3-L4: There is broad-based posterior disc bulge and annular fissure. In conjunction with hypertrophy of the ligamentum flavum there is mild to moderate central canal stenosis with a minimum AP diameter of 7 mm. There is bilateral subarticular stenosis, with possible impingement on the exiting left L3 nerve ro ot. This also abuts the transiting bilateral nerve roots. In conjunction with facet arthropathy there is moderate bilateral neural foraminal stenosis. L4-L5: There is broad-based posterior disc bulge. In conjunction with hypertrophy of the ligamentum flavum and anterolisthesis there is moderate kim tral canal stenosis at this level with a minimum AP diameter of 6 mm. There is right greater than left subarticular stenosis with impingement on the exiting bilateral L4 nerve roots. This also abuts the transiting bilateral nerve roots. In conjunction with facet arthropathy there is moderate to severe bilateral neural foraminal narrowing. There is a left-sided facet joint effusion. L5-S1: There is minimal posterior disc bulge. There is no acquired compromise of the central canal. There is mild bilateral subarticular stenosis. In conjunction with osteophytosis there may be impingement on the exiting left L5 nerve root. In conjunction with facet arthropathy there is moderate left and mild right neural foraminal stenosis. There is a left-sided facet joint effusion. Sacrum: The visualized sacrum is normal in morphology and signal intensity. Soft tissues: There is fatty atrophy of the paraspinous musculature. The retroperitoneal structures are grossly unremarkable but incompletely evaluated. IMPRESSION: 1. Multilevel lumbosacral spondylosis as above with multilevel acquired compromi se of the central canal. See discussion for detailed level by level analysis. 2. Degenerative disc disease and degenerative endplate change as above. 3. No destructive bony lesion is identified. Consultation(s): [facility] hospitalist service HPI: The patient is a 70 year old female who presents to the Emergency Room with complaints of right-sided back pain radiating to the right leg. This started over a week ago and is worsening. The patient also notes the following associated symptoms, pain radiating through the right hip, difficulty walking secondary to pain. The patient has prednisone and oxycodone for relieving factors. Current pain is rated as 8/10. Patient was seen in the ER and x-rays showed degenerative changes. She was referred to [facility]. She was seen by them this week. She was told by that clinic that she should come to [facility] for an MRI. Pt denies LOC, headache, fevers, chills, di aphoresis, visual changes, neck pain, chest pain, breathing difficulties, nausea, vomiting, abdominal pain, melena, hematochezia, urinary symptoms, numbness, weakness, lymphadenopathy, rash, or other complaints. ROS: See above HPI for pertinent positives & negatives. A total of 10 systems reviewed and were otherwise negative. PAST MEDICAL HISTORY:See Below, sleep apnea, breast cancer PAST SURGICAL HISTORY:See Below, FAMILY HISTORY:See Below SOCIAL HISTORY:See Below, non-smoker HOME MEDICATIONS:See Below ALLERGIES:See Below VITALS:See Below PHYSICAL EXAMINATION: GENERAL: Awake, alert, very uncomfortable-appearing, in mild distress HENT: Normocephalic, atraumatic. Oropharynx unremarkable. EYES: Normal conjunctiva. Sclera non-icteric. NECK: Inspection normal. Non-tender. Supple. No nuchal rigidity. FROM. No masses. RESPIRATORY: Clear to auscultation. No wheezes. No rales. Normal respiratory effort. CARDIAC: Normal rate. Normal rhythm. No murmurs. No rubs. Extremities warm and well perfused. Pulses equal. No JVD. GI: Soft, non-distended. No tenderness to palpation. No rebound or guarding. No masses. RECTAL: Deferred. MUSCULOSKELETAL: Atraumatic. Chest examination reveals no tenderness. The back is symmetrical on inspection without obvious abnormality. There is no CVA tenderness to palpation. No joint edema. LOWER EXTREMITIES: Calves are equal size bilaterally and non-tender. No edema. No discoloration. NEURO: Normal sensorium. No sensory or motor deficits noted. No saddle anesthesia. Difficulty with gait secondary to severe pain in the right leg SKIN: No rash or jaundice noted. Yao Flores MD Past Med/Surg History Medical History (Updated 07/12/20 @ 15:48 by Yao Flores MD) Anemia Arthritis Claudication of both lower extremities Depression Diastolic dysfunction Dyspnea on exertion Edema Elevated liver enzymes Family history of colon cancer GERD (gastroesophageal reflux disease) Hiatal hernia Hyperlipidemia Hypokalemia Impaired fasting glucose Inflammatory polyarthritis Joint stiffness Laryngopharyngeal reflux Left ventricular hypertrophy Long-term use of high-risk medication Long-term use of hydroxychloroquine Lumbar stenosis Malignant neoplasm of upper-inner quadrant of left breast in female, estrogen receptor negative Microscopic hematuria Moderate obstructive sleep apnea Nocturnal hypoxemia NSAID long-term use Peripheral edema Positive SANCHEZ (antinuclear antibody) Positive anti-CCP test Rheumatoid arthritis ON [place] Shortness of breath on exertion Sleep apnea CPAP URI (upper respiratory infection) Vitamin D insufficiency Surgical History History of cholecystectomy History of colonoscopy History of esophagogastroduodenoscopy (EGD) History of open reduction and internal fixation (ORIF) procedure R WRIST History of tonsillectomy and adenoidectomy History of total abdominal hysterectomy and bilateral salpingo-oophorectomy Status post right foot surgery Family History Mother , age 77 CHF Family history of diabetes mellitus Hypertension Family history of cardiac disorder Diabetes type 2 Brother , age 49 colon cancer Family hx of colon cancer Colorectal cancer Grandfather Family hx of colon cancer PATERNAL Father , age 60 cardiac arrest Family history of cardiac disorder Myocardial infarction Sister Family history of malignant neoplasm Breast cancer, Onset Age: 50 Son Allergic rhinitis Coronary heart disease Son No problems noted. Denies family history of Ovarian cancer Social History Smoking Status: Never smoker Second Hand Exposure: Yes (Second hand smoke exposure in the past.); Do You Dip or Chew Tobacco: No; Tobacco Cessation Education Requested by Patient: No Hx Alcohol Use: Yes Alcohol type: wine Hx Substance Use: No Preferred Language: Turkish Communication Ability: Effective Hearing Ability: Normal Patient Advocate Required: No Beliefs That Will Affect Care: None marital status: / Current Living Situation: Alone Current Living Situation Comment: Lives alone at home. 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 Other Information That Helps Us Care for You: No Feels Safe at Home: Yes Safety Concerns: Feels Safe At This Time Childhood Exposure to Second-Hand Smoke: Yes Diet Comment: low sodium caffeine: Yes during the past year weight has: other Dental Care, Regularly: Yes Physical Activity Frequency: 1-2 Times per Week Seatbelt Use: always Sunscreen Use: Yes Assistive Devices: Cane, CPAP, Glasses and Walker Allergies Allergies Allergy/AdvReac Type Severity Reaction Status Date / Time No Known Allergies Allergy Verified 07/12/20 19:48 Home Meds Home Medications Medication Instructions Recorded Confirmed cholecalciferol (vitamin D3) 5,000 unit PO QPM 04/25/18 07/12/20 multivitamin with minerals 1 tab PO QAM tab 02/12/19 07/12/20 hydroxychloroquine 200 mg tablet 200 mg PO BID 09/05/19 07/12/20 bumetanide 2 mg PO QAM 07/12/20 07/12/20 celecoxib 200 mg PO QPM 07/12/20 07/12/20 cyclobenzaprine 5 mg PO HS PRN 07/12/20 07/12/20 duloxetine 60 mg PO QAM 07/12/20 07/12/20 lorazepam 0.5 mg PO BID PRN 07/12/20 07/12/20 olmesartan-hydrochlorothiazide 1 tab PO QAM 07/12/20 07/12/20 omeprazole 20 mg PO QAM 07/12/20 07/12/20 oxycodone 5 mg PO TID PRN 07/12/20 07/12/20 potassium chloride [Klor-Con 10] 10 meq PO QAM 07/12/20 07/12/20 prednisone See Rx Instructions .ROUTE .COMPLEX 07/12/20 07/12/20 prednisone See Rx Instructions .ROUTE .COMPLEX 07/12/20 07/12/20 Results & Data (ED) Vital Signs Vital Signs - 24 hr 07/12/20 14:36 07/12/20 15:11 07/12/20 17:56 Temperature 36.2 C L Temperature Source Oral Pulse Rate 92 H Pulse Rate [Finger] 69 Pulse Rhythm [Finger] Regular Pulse Strength [Finger] Normal Respiratory Rate 16 22 Respiratory Effort / Characteristics Non-Labored Respiratory Depth Normal Respiratory Pattern Regular Blood Pressure 162/86 H Blood Pressure [Right Arm] 151/79 H Blood Pressure Mean 111 Blood Pressure Mean [Right Arm] 103 Blood Pressure Position [Right Arm] Lying Pulse Oximetry 96 96 95 Oxygen Delivery Method Room Air Room Air Room Air Sepsis Recent Fever Within 48 Hours No Sepsis New/Unexplained Change in Mental Status N/A Sepsis Action Taken by Nursing No Action Required 07/12/20 19:00 Temperature Temperature Source Pulse Rate Pulse Rate [Finger] 76 Pulse Rhythm [Finger] Pulse Strength [Finger] Respiratory Rate 20 Respiratory Effort / Characteristics Non-Labored Respiratory Depth Normal Respiratory Pattern Regular Blood Pressure Blood Pressure [Right Arm] 151/79 H Blood Pressure Mean Blood Pressure Mean [Right Arm] 103 Blood Pressure Position [Right Arm] Pulse Oximetry 96 Oxygen Delivery Method Room Air Sepsis Recent Fever Within 48 Hours Sepsis New/Unexplained Change in Mental Status Sepsis Action Taken by Nursing Laboratory Data Result diagrams: 07/12/20 15:50 07/12/20 15:50 Lab Results 07/12/20 07/12/20 Range/Units 15:50 15:50 WBC 8.00 (4.8-10.8) K/uL RBC 3.60 L (4.2-5.4) M/uL Hgb 11.7 L (12.0-16.0) g/dL Hct 34.3 L (37-47) % MCV 95.3 (80-100) fL MCH 32.5 (25-34) pg MCHC 34.1 (32-36) g/dL RDW Std Deviation 47.1 H (36.4-46.3) fL RDW Coeff of [place] 13.5 (11.5-14.5) % Plt Count 246 (130-400) K/uL MPV 8.5 (7.4-10.4) fL Immature Gran % (Auto) 0.4 % Neut % (Auto) 92.6 % Lymph % (Auto) 4.1 % [place] % (Auto) 2.9 % Eos % (Auto) 0.0 % Baso % (Auto) 0.0 % Neut # (Auto) 7.41 H (1.4-6.5) K/uL Lymph # (Auto) 0.33 L (1.2-3.4) K/uL [place] # (Auto) 0.23 (0.11-0.59) K/uL Eos # (Auto) 0.00 (0-0.5) K/uL Baso # (Auto) 0.00 (0-0.2) K/uL Immature Gran # (Auto) 0.03 H (0.00-0.02) K/uL Sodium 138 (136-145) mmol/L Potassium 3.9 (3.5-5.1) mmol/L Chloride 105 (98-107) mmol/L Carbon Dioxide 30 (21-32) mmol/L Anion Gap 3.0 (3-11) BUN 27 H (7-18) mg/dl Creatinine 0.75 (0.6-1.2) mg/dl Est Cr Clr Drug Dosing 81.0 ml/min Est GFR ( Amer) 92.3 Est GFR (Non-Af Amer) 79.6 BUN/Creatinine Ratio 35.8 H (10-20) Glucose 120 H (70-99) mg/dl Calcium 8.8 (8.5-10.1) mg/dl Total Bilirubin 0.3 (0.2-1) mg/dl AST 12 L (15-37) U/L ALT 29 (12-78) U/L Alkaline Phosphatase 70 (45-117) U/L Total Protein 6.5 (6.4-8.2) gm/dl Albumin 3.0 L (3.4-5.0) gm/dl Globulin 3.5 (2.5-4.0) gm/dl Albumin/Globulin Ratio 0.9 (0.9-2) Administered Medications Enoxaparin Sodium (Enoxaparin Inj 40 Mg/0.4 Ml Syr) 40 mg SQ Q12H JANE Stop: 08/11/20 21:59 Last Admin: 07/12/20 22:46 Dose: 40 mg Documented by: [id number] Hydroxychloroquine Sulfate (Hydroxychloroquine Sulfate 200 Mg Tab) 200 mg PO BID JANE Stop: 08/11/20 22:59 Last Admin: 07/12/20 22:47 Dose: 200 mg Documented by: [id number] Oxycodone HCl (Oxycodone Hcl Ir 5 Mg Tab (Immediate Release)) 5 mg PO Q6H PRN PRN Reason: Moderate Pain Stop: 07/26/20 21:34 Last Admin: 07/12/20 22:50 Dose: 5 mg Documented by: [id number] Vitamin D (Cholecalciferol 1,000 Units 25 Mcg Tab) 5,000 units PO QPM JANE Stop: 08/11/20 22:59 Last Admin: 07/12/20 22:48 Dose: 5,000 units Documented by: [id number] Discontinued Medications Dexamethasone (Dexamethasone Sod Inj 10 Mg/Ml Vial) 6 mg IV NOW ONE Stop: 07/12/20 18:37 Last Admin: 07/12/20 19:12 Dose: Not Given Documented by: [id number] Dexamethasone (Dexamethasone Sod Inj 10 Mg/Ml Vial) 10 mg IV NOW ONE Stop: 07/12/20 18:59 Last Admin: 07/12/20 19:25 Dose: 10 mg Documented by: [id number] Hydromorphone HCl (Hydromorphone Inj 0.5 Mg/0.5 Ml Syr) 0.5 mg IV Q15M PRN PRN Reason: Pain Stop: 07/26/20 15:20 Last Admin: 07/12/20 18:02 Dose: 0.5 mg Documented by: [id number] Lorazepam (Ativan) 0.5 mg in 1 mls @ 1 mls/min IV NOW STA Stop: 07/12/20 16:36 Last Admin: 07/12/20 16:44 Dose: 1 mls/min Documented by: [id number] Ondansetron HCl (Ondansetron Inj 2 Mg/Ml 2 Ml Vial) 4 mg IV NOW STA Stop: 07/12/20 15:22 Last Admin: 07/12/20 18:02 Dose: Not Given Documented by: [id number] Ondansetron HCl (Ondansetron Inj 2 Mg/Ml 2 Ml Vial) Confirm Administered Dose 4 mg .ROUTE .STK-MED ONE Stop: 07/12/20 18:00 Last Admin: 07/12/20 18:02 Dose: 4 mg Documented by: [id number] Discharge Plan Visit Data Chief Complaint: Leg Injury/Pain Stated Complaint: RIGHT LEG PAIN ED Provider: Yao Flores Discharge Problem: Lumbar radiculopathy, acute Patient Disposition: Admitted As Inpatient Discharge Instructions Interventions: ED Discharge Assessment Last Done: 07/12/20 21:14
[2020-07-12 16:23] LABS: Hematocrit (blood only) 34.3 % (37-47); Hemoglobin 11.7 g/dL (12.0-16.0); Immature Granulocytes # (auto) 0.03 K/uL (0.00-0.02); Immature Granulocytes % (auto) 0.4 %; Lymphocytes # (auto) 0.33 K/uL (1.2-3.4); Lymphocytes % (auto) 4.1 %; Mean Corpuscular Hemoglobin 32.5 pg (25-34); Mean Corpuscular Hgb Conc 34.1 g/dL (32-36); Mean Corpuscular Volume 95.3 fL (80-100); Mean Platelet Volume 8.5 fL (7.4-10.4); Monocytes # (auto) 0.23 K/uL (0.11-0.59); Monocytes % (auto) 2.9 %; Neutrophils # (auto) 7.41 K/uL (1.4-6.5); Neutrophils % (auto) 92.6 %; Platelet Count 246 K/uL (130-400); RDW Coefficient of Variation 13.5 % (11.5-14.5); RDW Standard Deviation 47.1 fL (36.4-46.3)
[2020-07-12] MEDS ORDERED: LORazepam 0.5 MG/1 ML VIAL IV STA (16:35)
[2020-07-12 16:40] LABS: BUN Creatinine Ratio 35.8 (10-20); Calcium 8.8 mg/dl (8.5-10.1); Est GFR (African American) 92.3; Est GFR (Non-African American) 79.6; Potassium 3.9 mmol/L (3.5-5.1)
[2020-07-12 16:43] LABS: Albumin Globulin Ratio 0.9 (0.9-2); Bilirubin,Total 0.3 mg/dl (0.2-1); Globulin 3.5 gm/dl (2.5-4.0); Total Protein 6.5 gm/dl (6.4-8.2)
[2020-07-12] MEDS ORDERED: ONDANSETRON INJ 2 MG/ML 2 ML VIAL ONE (17:59)
--- NOTE | 2020-07-12 18:23 | Magnetic Resonance Report ---
MRI OF THE LUMBAR SPINE WITHOUT IV CONTRAST CLINICAL HISTORY: Right-sided sciatica. Reported history of breast cancer. COMPARISON STUDY: Radiographs of lumbar spine dated 07/06/2020. TECHNIQUE: MRI of the lumbar spine is performed using various T1 and T2-weighted sequences in the axi al and sagittal planes. IV contrast was not administered for this examination. The examination is deg raded by motion artifact. FINDINGS: Lumbar spine: Marrow signal intensity is heterogeneous. Vertebral body height is maintained throughou t the lumbar spine. There is 6 mm of anterolisthesis at L4-L5. Minimal retrolisthesis is seen at L1-L 2 and L2-L3. Small anterior and lateral marginal osteophytes are seen throughout. The transverse and spinous processes appear intact. Hemangiomas are seen in the bodies of T12, L2, L4, and L5. No destru ctive bony lesion is seen. There is chronic degenerative endplate change noted at L1-L2, L3-L4, and L 5-S1. Mild endplate edema is noted at L2-L3. Intervertebral discs: Degenerative disc desiccation and loss of height is seen throughout the lumbar spine. Loss of height is moderate at all levels and severe at L2-L3. Spinal cord: The visualized spinal cord is normal in morphology and signal intensity. The conus medul harsh terminates at the level of L2. The nerve roots of the cauda equina are normal in morphology. T12-L1: There is minimal posterior disc bulge. The central canal is clear. There is moderate left-stef ed neural foraminal stenosis. L1-L2: There is minimal posterior disc bulge. The central canal is clear. There is mild bilateral sub articular stenosis. In conjunction with facet arthropathy there is mild left and [id number]-lb-vojedscp rig ht neural foraminal stenosis. L2-L3: There is a large posterior disc osteophyte complex. In conjunction with hypertrophy of the lig amentum flavum there is mild to moderate central canal stenosis at this level with a minimum AP diame ter of 7 mm. There is bilateral subarticular stenosis with probable impingement on the exiting bilate ral L2 nerve roots. This also abuts the transiting nerve roots. In conjunction with facet arthropathy there is moderate to severe bilateral neural foraminal stenosis. L3-L4: There is broad-based posterior disc bulge and annular fissure. In conjunction with hypertrophy of the ligamentum flavum there is mild to moderate central canal stenosis with a minimum AP diameter of 7 mm. There is bilateral subarticular stenosis, with possible impingement on the exiting left L3 nerve root. This also abuts the transiting bilateral nerve roots. In conjunction with facet arthropat hy there is moderate bilateral neural foraminal stenosis. L4-L5: There is broad-based posterior disc bulge. In conjunction with hypertrophy of the ligamentum f lavum and anterolisthesis there is moderate central canal stenosis at this level with a minimum AP di ameter of 6 mm. There is right greater than left subarticular stenosis with impingement on the exitin g bilateral L4 nerve roots. This also abuts the transiting bilateral nerve roots. In conjunction with facet arthropathy there is moderate to severe bilateral neural foraminal narrowing. There is a left- sided facet joint effusion. L5-S1: There is minimal posterior disc bulge. There is no acquired compromise of the central canal. T here is mild bilateral subarticular stenosis. In conjunction with osteophytosis there may be impingem ent on the exiting left L5 nerve root. In conjunction with facet arthropathy there is moderate left a nd mild right neural foraminal stenosis. There is a left-sided facet joint effusion. Sacrum: The visualized sacrum is normal in morphology and signal intensity. Soft tissues: There is fatty atrophy of the paraspinous musculature. The retroperitoneal structures a re grossly unremarkable but incompletely evaluated. IMPRESSION: 1. Multilevel lumbosacral spondylosis as above with multilevel acquired compromise of the central can al. See discussion for detailed level by level analysis. 2. Degenerative disc disease and degenerative endplate change as above. 3. No destructive bony lesion is identified. Dictated: 07/12/2020 5:56 PM Transcribed: 07/12/2020 6:21 PM Vivian [id number] MIRIAM_Jarod Electronically signed by: Trung Marques M.D. 07/12/2020 6:22 PM
[2020-07-12] MEDS ORDERED: DEXAMETHASONE SOD INJ 10 MG/ML VIAL IV ONE ×2 (18:36→18:58)
[2020-07-12] MEDS ORDERED: LORazepam 0.5 MG TAB PO PRN (21:33)
--- NOTE | 2020-07-12 22:42 | History & Physical Report ---
Date of Service July 12, 2020 Assessment & Plan (1) Lumbar back pain with radiculopathy affecting right lower extremity: Received Decadron 10 mg IV in ED. Continue Decadron 6 mg IV every 6 hours Acetaminophen 650 mg p.o. every 6 hours as needed mild pain or temperature. Oxycodone 5 mg p.o. every 6 hours as needed moderate pain Dilaudid 0.5 mg IV every 3 hours as needed severe pain Consult orthopedic spine surgery. Consult pain management Present on Admission?: Yes (2) Anxiety and depression: Continue duloxetine and lorazepam Present on Admission?: Yes (3) Hypertension: Hold on losartan/HCTZ and bumetanide Present on Admission?: Yes (4) Rheumatoid arthritis: Continue hydroxychloroquine, Celebrex, cyclobenzaprine. Hold prednisone and Guerline of Decadron as noted above Present on Admission?: Yes (5) Long-term use of hydroxychloroquine: See above Present on Admission?: Yes (6) Moderate obstructive sleep apnea: CPAP at bedtime as needed Present on Admission?: Yes Admission and Anticipated Discharge Date Admission Date: July 12, 2020 History of Present Illness Chief Complaint: The patient presents to the emergency department with complaint of 1 week of worsening low back pain with radiation down right leg and into her right groin Primary Care Provider: BONIFACIO Pacheco The patient is a 70-year-old female with a past medical history including right rotator cuff tear, DJD, bilateral knee pain, rheumatoid arthritis, moderate GERMAN, diastolic heart dysfunction, left ventricular hypertrophy, edema, anemia, hypertension, 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 The patient reports the acute onset of low back pain with radiation to right groin and down right leg. She reports no known stimulus for the pain and occurred without warning. She does have bilateral knee pain and gets regular injections. Allergies Allergy/AdvReac Type Severity Reaction Status Date / Time No Known Allergies Allergy Verified 07/12/20 19:48 Home Medications Medication Instructions Recorded Confirmed Type cholecalciferol (vitamin D3) 5,000 unit PO QPM 04/25/18 07/12/20 History multivitamin with minerals 1 tab PO QAM tab 02/12/19 07/12/20 History hydroxychloroquine 200 mg tablet 200 mg PO BID 09/05/19 07/12/20 History bumetanide 2 mg PO QAM 07/12/20 07/12/20 History celecoxib 200 mg PO QPM 07/12/20 07/12/20 History cyclobenzaprine 5 mg PO HS PRN 07/12/20 07/12/20 History duloxetine 60 mg PO QAM 07/12/20 07/12/20 History lorazepam 0.5 mg PO BID PRN 07/12/20 07/12/20 History olmesartan-hydrochlorothiazide 1 tab PO QAM 07/12/20 07/12/20 History omeprazole 20 mg PO QAM 07/12/20 07/12/20 History oxycodone 5 mg PO TID PRN 07/12/20 07/12/20 History potassium chloride [Klor-Con 10] 10 meq PO QAM 07/12/20 07/12/20 History prednisone See Rx Instructions .ROUTE .COMPLEX 07/12/20 07/12/20 History prednisone See Rx Instructions .ROUTE .COMPLEX 07/12/20 07/12/20 History Past Med/Surg History Medical History (Updated 07/13/20 @ 03:28 by Kristian López MD) Anemia Arthritis Claudication of both lower extremities Depression Diastolic dysfunction Dyspnea on exertion Edema Elevated liver enzymes Family history of colon cancer GERD (gastroesophageal reflux disease) Hiatal hernia Hyperlipidemia Hypokalemia Impaired fasting glucose Inflammatory polyarthritis Joint stiffness Laryngopharyngeal reflux Left ventricular hypertrophy Long-term use of high-risk medication Long-term use of hydroxychloroquine Lumbar stenosis Malignant neoplasm of upper-inner quadrant of left breast in female, estrogen receptor negative Microscopic hematuria Moderate obstructive sleep apnea Nocturnal hypoxemia NSAID long-term use Peripheral edema Positive SANCHEZ (antinuclear antibody) Positive anti-CCP test Rheumatoid arthritis ON [place] Shortness of breath on exertion Sleep apnea CPAP URI (upper respiratory infection) Vitamin D insufficiency Surgical History History of cholecystectomy History of colonoscopy History of esophagogastroduodenoscopy (EGD) History of open reduction and internal fixation (ORIF) procedure R WRIST History of tonsillectomy and adenoidectomy History of total abdominal hysterectomy and bilateral salpingo-oophorectomy Status post right foot surgery Family History Mother , age 77 CHF Family history of diabetes mellitus Hypertension Family history of cardiac disorder Diabetes type 2 Brother , age 49 colon cancer Family hx of colon cancer Colorectal cancer Grandfather Family hx of colon cancer PATERNAL Father , age 60 cardiac arrest Family history of cardiac disorder Myocardial infarction Sister Family history of malignant neoplasm Breast cancer, Onset Age: 50 Son Allergic rhinitis Coronary heart disease Son No problems noted. Denies family history of Ovarian cancer Social History Smoking Status: Never smoker Second Hand Exposure: Yes (Second hand smoke exposure in the past.); Do You Dip or Chew Tobacco: No; Tobacco Cessation Education Requested by Patient: No Hx Alcohol Use: Yes Alcohol type: wine Hx Substance Use: No Preferred Language: Burundian Communication Ability: Effective Hearing Ability: Normal Globe Mounter Required: No Beliefs That Will Affect Care: None marital status: / Current Living Situation: Alone Current Living Situation Comment: Lives alone at home. 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 Other Information That Helps Us Care for You: No Feels Safe at Home: Yes Safety Concerns: Feels Safe At This Time Childhood Exposure to Second-Hand Smoke: Yes Diet Comment: low sodium caffeine: Yes during the past year weight has: other Dental Care, Regularly: Yes Physical Activity Frequency: 1-2 Times per Week Seatbelt Use: always Sunscreen Use: Yes Assistive Devices: Walker Review of Systems Review of Systems: The patient denies chest pain, palpitations, shortness of breath, dyspnea on exertion, cough, lower extremity swelling, sore throat, fevers, chills, sweats, weight change, fatigue, nausea, vomiting, diarrhea , constipation, abdominal pain, pelvic pain, blood in urine or stool, dysuria, urinary frequency or urgency, lightheadedness, dizziness, headache, memory loss, loss of consciousness, rash, abnormal bruising or bleeding, focal or generalized weakness, numbness or tingling in arms, generalized ar thralgias or myalgias, neck pain, or night sweats. The review of systems is otherwise negative other than for that already noted above, and at least 10 systems have been reviewed. Physical Exam Physical Exam: The patient is awake, alert and oriented 3, well developed and well nourished, normocephalic and atraumatic, lying in bed and in no acute distress. HEENT--PERRL, EOMI, mucous membranes and oropharynx normal. Neck--supple. No JVD. No bruits. Thyroid normal, trachea midline, no adenopathy. Heart--normal S1 and S2. No murmurs, rubs or gallops. Lungs--clear bilaterally, no respiratory distress, no accessory muscle use. Abdomen--normal bowel sounds and soft. Nontender. Nondistended. Morbidly obese Extremities--no cyanosis or clubbing. No edema. Dermatologic--normal skin turgor, normal color, no abnormal lymph nodes, no rash. Neurologic--cranial nerves II through XII grossly intact. Rheumatologic--limited exam due to pain Psychiatric--normal affect. Results & Data Results & Data ([facility]) Vital Signs (Past 12 Hours) Vital Signs Temp Pulse Pulse Resp BP BP BP 07/12/20 21:43 99.3 F 71 18 126/78 07/12/20 21:00 72 20 177/90 H 07/12/20 19:00 76 20 151/79 H 07/12/20 17:56 69 22 151/79 H 07/12/20 15:11 07/12/20 14:36 97.2 F L 92 H 16 162/86 H Pulse Ox 07/12/20 21:43 95 07/12/20 21:00 98 07/12/20 19:00 96 07/12/20 17:56 95 07/12/20 15:11 96 07/12/20 14:36 96 Laboratory Results Laboratory Results WBC 8.00 K/uL (4.8-10.8) 07/12/20 15:50 RBC 3.60 M/uL (4.2-5.4) L 07/12/20 15:50 Hgb 11.7 g/dL (12.0-16.0) L 07/12/20 15:50 Hct 34.3 % (37-47) L 07/12/20 15:50 MCV 95.3 fL (80-100) 07/12/20 15:50 MCH 32.5 pg (25-34) 07/12/20 15:50 MCHC 34.1 g/dL (32-36) 07/12/20 15:50 RDW Std Deviation 47.1 fL (36.4-46.3) H 07/12/20 15:50 RDW Coeff of [place] 13.5 % (11.5-14.5) 07/12/20 15:50 Plt Count 246 K/uL (130-400) 07/12/20 15:50 MPV 8.5 fL (7.4-10.4) 07/12/20 15:50 Immature Gran % (Auto) 0.4 % 07/12/20 15:50 Neut % (Auto) 92.6 % 07/12/20 15:50 Lymph % (Auto) 4.1 % 07/12/20 15:50 [place] % (Auto) 2.9 % 07/12/20 15:50 Eos % (Auto) 0.0 % 07/12/20 15:50 Baso % (Auto) 0.0 % 07/12/20 15:50 Neut # (Auto) 7.41 K/uL (1.4-6.5) H 07/12/20 15:50 Lymph # (Auto) 0.33 K/uL (1.2-3.4) L 07/12/20 15:50 [place] # (Auto) 0.23 K/uL (0.11-0.59) 07/12/20 15:50 Eos # (Auto) 0.00 K/uL (0-0.5) 07/12/20 15:50 Baso # (Auto) 0.00 K/uL (0-0.2) 07/12/20 15:50 Immature Gran # (Auto) 0.03 K/uL (0.00-0.02) H 07/12/20 15:50 Sodium 138 mmol/L (136-145) 07/12/20 15:50 Potassium 3.9 mmol/L (3.5-5.1) 07/12/20 15:50 Chloride 105 mmol/L (98-107) 07/12/20 15:50 Carbon Dioxide 30 mmol/L (21-32) 07/12/20 15:50 Anion Gap 3.0 (3-11) 07/12/20 15:50 BUN 27 mg/dl (7-18) H 07/12/20 15:50 Creatinine 0.75 mg/dl (0.6-1.2) 07/12/20 15:50 Est Cr Clr Drug Dosing 81.0 ml/min 07/12/20 15:50 Est GFR ( Amer) 92.3 07/12/20 15:50 Est GFR (Non-Af Amer) 79.6 07/12/20 15:50 BUN/Creatinine Ratio 35.8 (10-20) H 07/12/20 15:50 Glucose 120 mg/dl (70-99) H 07/12/20 15:50 Calcium 8.8 mg/dl (8.5-10.1) 07/12/20 15:50 Total Bilirubin 0.3 mg/dl (0.2-1) 07/12/20 15:50 AST 12 U/L (15-37) L 07/12/20 15:50 ALT 29 U/L (12-78) 07/12/20 15:50 Alkaline Phosphatase 70 U/L (45-117) 07/12/20 15:50 Total Protein 6.5 gm/dl (6.4-8.2) 07/12/20 15:50 Albumin 3.0 gm/dl (3.4-5.0) L 07/12/20 15:50 Globulin 3.5 gm/dl (2.5-4.0) 07/12/20 15:50 Albumin/Globulin Ratio 0.9 (0.9-2) 07/12/20 15:50 Urine Color Yellow 07/13/20 03:00 Urine Appearance Clear (Clear) 07/13/20 03:00 Urine pH 6.5 (4.5-7.5) 07/13/20 03:00 Ur Specific [place] 1.011 (1.000-1.030) 07/13/20 03:00 Urine Protein Negative (Negative) 07/13/20 03:00 Urine Glucose (UA) Trace (Negative) H 07/13/20 03:00 Urine Ketones Negative (Negative) 07/13/20 03:00 Urine Blood Negative (Negative) 07/13/20 03:00 Urine Nitrite Negative (Negative) 07/13/20 03:00 Urine Bilirubin Negative (Negative) 07/13/20 03:00 Urine Urobilinogen Negative (Negative) 07/13/20 03:00 Ur Leukocyte Esterase Negative (Negative) 07/13/20 03:00 SARS-CoV-2 Ag (Rapid) Negative (Negative) 07/12/20 20:01 Diagnostic Findings [facility], [phone] Magnetic Resonance Report Patient: SUSIE MONTES Date: 07/12/20MR#: [id number]: [id number] RDAcct ID:[id number]: Date: 1950City Zip: [place], [place] [address]Zcq: 70Location: EDSex: FRoom/Bed:Att Phy:Diagnosis: RIGHT LEG PAINPri Phy: Katlin Nix CRNPService Date: 07/12/20Fam Phy:Interpreting Phy: Trung Marques MDAdmit Phy: Ordering Phy: Yao Flores MD cc: ~ MRI OF THE LUMBAR SPINE WITHOUT IV CONTRAST CLINICAL HISTORY: Right-sided sciatica. Reported history of breast cancer. COMPARISON STUDY: Radiographs of lumbar spine dated 07/06/2020. TECHNIQUE: MRI of the lumbar spine is performed using various T1 and T2-weighted sequences in the axial and sagittal planes. IV contrast was not administered for this examination. The examination is degraded by motion artifact. FINDINGS: Lumbar spine: Marrow signal intensity is heterogeneous. Vertebral body height is maintained throughout the lumbar spine. There is 6 mm of anterolisthesis at L4- L5. Minimal retrolisthesis is seen at L1-L2 and L2-L3. Small anterior and lateral marginal osteophytes are seen throughout. The transverse and spinous processes appear intact. Hemangiomas are seen in the bodies of T12, L2, L4, and L5. No destructive bony lesion is seen. There is chronic degenerative endplate change noted at L1-L2, L3-L4, and L5-S1. Mild endplate edema is noted at L2-L3. Intervertebral discs: Degenerative disc desiccation and loss of height is seen throughout the lumbar spine. Loss of height is moderate at all levels and severe at L2-L3. Spinal cord: The visualized spinal cord is normal in morphology and signal intensity. The conus medullaris terminates at the level of L2. The nerve roots of the cauda equina are normal in morphology. T12-L1: There is minimal posterior disc bulge. The central canal is clear. There is moderate left-sided neural foraminal stenosis. L1-L2: There is minimal posterior disc bulge. The central canal is clear. There is mild bilateral subarticular stenosis. In conjunction with facet arthropathy there is mild left and [id number] right neural foraminal stenosis. L2-L3: There is a large posterior disc osteophyte complex. In conjunction with hypertrophy of the ligamentum flavum there is mild to moderate central canal stenosis at this level with a minimum AP diameter of 7 mm. There is bilateral subarticular stenosis with probable impingement on the exiting bilateral L2 nerve roots. This also abuts the transiting nerve roots. In conjunction with facet arthropathy there is moderate to severe bilateral neural foraminal stenosis. L3-L4: There is broad-based posterior disc bulge and annular fissure. In conjunction with hypertrophy of the ligamentum flavum there is mild to moderate central canal stenosis with a minimum AP diameter of 7 mm. There is bilateral subarticular stenosis, with possible impingement on the exiting left L3 nerve root. This also abuts the transiting bilateral nerve roots. In conjunction with facet arthropathy there is moderate bilateral neural foraminal stenosis. L4-L5: There is broad-based posterior disc bulge. In conjunction with hypertroph y of the ligamentum flavum and anterolisthesis there is moderate central canal stenosis at this level with a minimum AP diameter of 6 mm. There is right greater than left subarticular stenosis with impingement on the exiting bilateral L4 nerve roots. This also abuts the transiting bilateral nerve roots. In conjunction with facet arthropathy there is moderate to severe bilateral neural foraminal narrowing. There is a left-sided facet joint effusion. L5-S1: There is minimal posterior disc bulge. There is no acquired compromise of the central canal. There is mild bilateral subarticular stenosis. In conjunction with osteophytosis there may be impingement on the exiting left L5 nerve root. In conjunction with facet arthropathy there is moderate left and mild right neural foraminal stenosis. There is a left-sided facet joint effusion. Sacrum: The visualized sacrum is normal in morphology and signal intensity. Soft tissues: There is fatty atrophy of the paraspinous musculature. The retrope ritoneal structures are grossly unremarkable but incompletely evaluated. IMPRESSION: 1. Multilevel lumbosacral spondylosis as above with multilevel acquired compromise of the central canal. See discussion for detailed level by level analysis. 2. Degenerative disc disease and degenerative endplate change as above. 3. No destructive bony lesion is identified. Dictated: 07/12/2020 5:56 PM Transcribed: 07/12/2020 6:21 PM Vivian [id number] MIRIAM_Jarod Electronically signed by: Trung Marques M.D. 07/12/2020 6:22 PM Dictated: 07/12/20 1756Transcribed: 07/12/20 1821 Code Status & VTE Plan Code Status Full code VTE Prophylaxis Plan VTE Prophylaxis will be ordered: Yes PG Care Time/CCT Total # of Minutes Spent Total Time Spent with Patient: Total time spent is greater than 50% in coordination of care (as documented) at patient's floor/unit and/or counseling patient: Coding Level of Care Code 37381 Initial Inpt Care Lvl 2 Diagnoses Lumbar back pain with radiculopathy affecting right lower extremity M54.16 Anxiety and depression F41.9; F32.9 Hypertension I10 Rheumatoid arthritis M06.9 Long-term use of hydroxychloroquine Z79.899 Moderate obstructive sleep apnea G47.33
[2020-07-12] MEDS: ENOXAPARIN INJ 40 MG/0.4 ML SYR SQ SCH (22:46)
[2020-07-12] MEDS: HYDROXYCHLOROQUINE SULFATE 200 MG TAB PO SCH (22:47)
[2020-07-12] MEDS: CHOLECALCIFEROL 1,000 UNITS 25 MCG TAB PO SCH (22:48)
[2020-07-12] MEDS: oxyCODONE HCL IR 5 MG TAB (IMMEDIATE RELEASE) PO PRN (22:50)
[2020-07-13] MEDS: dexAMETHasone 6 MG in SYRINGE 0 ML IV SCH ×4 (03:05→21:58)
[2020-07-13] MEDS: HEPARIN 100 UNIT/ML 5ML FLUSH FLUSH PRN ×3 (03:06→21:59)
[2020-07-13 03:10] LABS: Appearance Urine Clear (Clear); Bilirubin Urine Negative (Negative); Blood Urine Negative (Negative); Color Urine Yellow; Glucose Urine UA Trace (Negative); Ketones Urine Negative (Negative); Leukocyte Esterase Urine Negative (Negative); Nitrite Urine Negative (Negative); Protein Urine Negative (Negative); Specific Gravity Urine 1.011 (1.000-1.030); Urobilinogen Urine Negative (Negative); pH Urine 6.5 (4.5-7.5)
[2020-07-13 06:27] LABS: Hematocrit (blood only) 33.7 % (37-47); Hemoglobin 11.4 g/dL (12.0-16.0); Immature Granulocytes # (auto) 0.03 K/uL (0.00-0.02); Immature Granulocytes % (auto) 0.4 %; Lymphocytes # (auto) 0.36 K/uL (1.2-3.4); Lymphocytes % (auto) 4.4 %; Mean Corpuscular Hemoglobin 32.2 pg (25-34); Mean Corpuscular Hgb Conc 33.8 g/dL (32-36); Mean Corpuscular Volume 95.2 fL (80-100); Mean Platelet Volume 8.8 fL (7.4-10.4); Monocytes # (auto) 0.09 K/uL (0.11-0.59); Monocytes % (auto) 1.1 %; Neutrophils # (auto) 7.64 K/uL (1.4-6.5); Neutrophils % (auto) 94.1 %; Platelet Count 227 K/uL (130-400); RDW Coefficient of Variation 13.2 % (11.5-14.5); RDW Standard Deviation 46.1 fL (36.4-46.3); Red Blood Count 3.54 M/uL (4.2-5.4); White Blood Count 8.12 K/uL (4.8-10.8)
[2020-07-13 07:00] LABS: Albumin Level 2.8 gm/dl (3.4-5.0); BUN Creatinine Ratio 30.5 (10-20); Creatinine Clr Calc Pharmacy 81.5 ml/min; Est GFR (African American) 90.8; Est GFR (Non-African American) 78.4; Magnesium 2.2 mg/dl (1.8-2.4); Potassium 4.4 mmol/L (3.5-5.1)
[2020-07-13 07:03] LABS: Albumin Globulin Ratio 0.9 (0.9-2); Bilirubin,Total 0.4 mg/dl (0.2-1); Globulin 3.3 gm/dl (2.5-4.0); Total Protein 6.1 gm/dl (6.4-8.2)
[2020-07-13] MEDS: PANTOprazole 40 MG TAB PO SCH (08:24)
[2020-07-13] MEDS: DULoxetine HCL 60 MG CAP PO SCH (08:24)
[2020-07-13] MEDS: CEROVITE ADV FORMULA TAB PO SCH (08:24)
[2020-07-13] MEDS: oxyCODONE HCL IR 5 MG TAB (IMMEDIATE RELEASE) PO PRN (08:24)
[2020-07-13] MEDS: HYDROXYCHLOROQUINE SULFATE 200 MG TAB PO SCH ×2 (08:24→20:50)
[2020-07-13] MEDS ORDERED: LORazepam 0.5 MG TAB PO PRN (10:23)
[2020-07-13] MEDS ORDERED: oxyCODONE IR HOME PACK PO PRN (10:23)
[2020-07-13] MEDS: ENOXAPARIN INJ 40 MG/0.4 ML SYR SQ SCH (11:02)
--- NOTE | 2020-07-13 11:35 | Hospitalist Progress Note ---
Date of Service July 13, 2020 Assessment & Plan (1) Lumbar back pain with radiculopathy affecting right lower extremity: Received Decadron 10 mg IV in ED. Continue Decadron 6 mg IV every 6 hours Acetaminophen 650 mg p.o. every 6 hours as needed mild pain or temperature. Oxycodone 5 mg p.o. every 6 hours as needed moderate pain Dilaudid 0.5 mg IV every 3 hours as needed severe pain Consult orthopedic spine surgery. Consult pain management MRI noted for possible compromised central canal No ron incontinence, possibly incontinence due to ambulation limitations as pt states she feels she has to urinate but cannot get to the bathroom in time (2) Anxiety and depression: Continue duloxetine and lorazepam (3) Hypertension: Hold on losartan/HCTZ and bumetanide on admission Will restart given elevated BP and LE swelling (4) Rheumatoid arthritis: Continue hydroxychloroquine, Celebrex, cyclobenzaprine. Hold prednisone and Guerline of Decadron as noted above (5) Long-term use of hydroxychloroquine: See above (6) Moderate obstructive sleep apnea: CPAP at bedtime as needed (7) Edema: Resume bumex due to LE swelling s/p missed dose this AM (8) DVT prophylaxis: Ordered lovenox BID on admission, holding in case of need for OR Last dose was 12/13 AM If restarted, QD should cover pt Admission and Anticipated Discharge Date Admission Date: July 12, 2020 Subjective Pt states she feels a bit better today. She still has pain into the R LE, but decreased. She was able to ambulate to the bathroom slowly with assistance, which she says she could not even walk with assistance. She notes some increased b/l LE swelling today and states she generally takes bumex in the AM, but did not get this today. She also did not get her K. Pt states that this LE pain has been getting worse since around . She denies ron incontinence, but notes that over the last week she has not been able to get to the bathroom fast enough, which she attributed to the pain in her LB and LE. Due to this, she has wet herself several times. She otherwise feels her usual. Pt denies fever, SOB, chest pain, abd pain, n/v/c/d. Review of Systems Review of Systems: Pertinent positives and negatives reviewed in HPI--all others negative Physical Exam Constitutional: WD/WN, vitals as above Eyes: normal visual coley by confrontation and + anicteric sclerae Neck: normal visual inspection and trachea midline Respiratory: normal respiratory effort, lungs clear to auscultation Cardiovascular: Rate/Rhythm: regular rate and regular rhythm Gastrointestinal (Abdomen): Inspection/Auscultation: abdomen not distended Percussion/Palpation: abdomen soft; abdomen nontender Musculoskeletal: Head/Neck/Chest: normocephalic and head atraumatic 1+ b/l LE edema, peripheral pulses intact Skin: no rashes, warm and dry Neurologic: awake; not confused Speech / Cognition: normal speech Psychiatric: A+Ox3, euthymic affect Results & Data Results & Data ([facility]) Vital Signs (Past 12 Hours) Vital Signs Temp Pulse Resp BP Pulse Ox 07/13/20 07:28 36.6 C 61 18 158/76 H 95 PG Care Time/CCT Total # of Minutes Spent Total Time Spent with Patient: Total time spent is greater than 50% in coordination of care (as documented) at patient's floor/unit and/or counseling patient: Coding Level of Care Code 77897 Subseq Hosp Care Lvl 3 Diagnoses Lumbar back pain with radiculopathy affecting right lower extremity M54.16 Anxiety and depression F41.9; F32.9 Hypertension I10 Rheumatoid arthritis M06.9 Long-term use of hydroxychloroquine Z79.899 Moderate obstructive sleep apnea G47.33 Edema R60.9 DVT prophylaxis Z29.9
[2020-07-13] MEDS: BUMETANIDE 1 MG TAB PO SCH (13:52)
[2020-07-13] MEDS: hydroCHLOROthiazide 25 MG TAB PO SCH (13:53)
[2020-07-13] MEDS: POTASSIUM CHLORIDE 10 MEQ TABCR PO SCH (13:53)
[2020-07-13] MEDS: OLMESARTAN MEDOXOMIL 20 MG TAB PO SCH (13:53)
[2020-07-13] MEDS: CHOLECALCIFEROL 1,000 UNITS 25 MCG TAB PO SCH (20:49)
[2020-07-14] MEDS: HEPARIN 100 UNIT/ML 5ML FLUSH FLUSH PRN ×5 (04:28→23:53)
[2020-07-14] MEDS: dexAMETHasone 6 MG in SYRINGE 0 ML IV SCH ×4 (04:29→23:52)
[2020-07-14 07:01] LABS: Hematocrit (blood only) 34.3 % (37-47); Hemoglobin 11.9 g/dL (12.0-16.0); Immature Granulocytes # (auto) 0.03 K/uL (0.00-0.02); Immature Granulocytes % (auto) 0.3 %; Lymphocytes # (auto) 0.36 K/uL (1.2-3.4); Lymphocytes % (auto) 3.9 %; Mean Corpuscular Hemoglobin 32.8 pg (25-34); Mean Corpuscular Hgb Conc 34.7 g/dL (32-36); Mean Corpuscular Volume 94.5 fL (80-100); Mean Platelet Volume 8.9 fL (7.4-10.4); Monocytes % (auto) 3.3 %; Neutrophils # (auto) 8.43 K/uL (1.4-6.5); Neutrophils % (auto) 92.5 %; Platelet Count 224 K/uL (130-400); RDW Coefficient of Variation 13.3 % (11.5-14.5); Red Blood Count 3.63 M/uL (4.2-5.4); White Blood Count 9.12 K/uL (4.8-10.8)
[2020-07-14 07:37] LABS: Albumin Globulin Ratio 0.8 (0.9-2); Albumin Level 2.8 gm/dl (3.4-5.0); BUN Creatinine Ratio 29.3 (10-20); Bilirubin,Total 0.4 mg/dl (0.2-1); Calcium 9.7 mg/dl (8.5-10.1); Creatinine Clr Calc Pharmacy 63.2 ml/min; Est GFR (African American) 66.8; Est GFR (Non-African American) 57.6; Globulin 3.5 gm/dl (2.5-4.0); Magnesium 2.2 mg/dl (1.8-2.4); Potassium 3.6 mmol/L (3.5-5.1); Total Protein 6.3 gm/dl (6.4-8.2)
--- NOTE | 2020-07-14 07:37 | Hospitalist Progress Note ---
Date of Service July 14, 2020 Assessment & Plan (1) Lumbar back pain with radiculopathy affecting right lower extremity: Yamilet is a 70-year-old female with a notable PMH of rheumatoid arthritis, HTN, anxiety, depression, GERMAN w/ CPAP, and distolic dysfunction who presented to [facility] on 07/12 with a chief concern of extremely painful sciatica-type symptoms, subsequently found to have significant multilevel spinal stenosis with acquired compromise of the central canal. She is hemodynamically stable. Spinal Stenosis with Neurogenic Claudication - MRI performed in the ED demonstrated "Multilevel lumbosacral spondylosis as above with multilevel acquired compromise of the central canal. See discussion for detailed level by level analysis," consistent with the patient's symptoms - Orthopedic surgery consulted, appreciate recommendations: - Outpatient PT with interventional pain management - If conservative measures fail, can consider surgical intervention ("requiring at minimum... decompression and fusion of L4-L5") - Pain management consulted, appreciate recs: - Initiate gabapentin 100mg PO t.i.d. - Will continue Decadron 6mg IV q6h while inpatient, transition to medrol DP upon d/c - Scheduled for epidural steroid injection 07/16 at 11:15A - Continue Cymbalta 60mg PO daily - Continue oxycodone 5mg PO q6h - PT evaluate and treat ordered - Hold celebrix and NSAIDs with steroids currently - No red flags on history today -- continue to follow Chronic Medical Problems - Anxiety and Depression: Continue Cymbalta, Ativan - HTN: Continue Losartan/HCTZ, Bumex - RA: Continue HCQ; hold prednisone (on Decadron), hold Celebrix, hold Flexeril - GERMAN: CPAP qHS F/E/N: heart-healthy diet Dispo: med/surg ; PT eval and treat tomorrow AM, anticipate d/c thereafter PPX: Lovenox Code: FULL CODE (2) Anxiety and depression: (3) Hypertension: (4) Rheumatoid arthritis: (5) Long-term use of hydroxychloroquine: (6) Moderate obstructive sleep apnea: (7) Edema: (8) DVT prophylaxis: Admission and Anticipated Discharge Date Admission Date: July 12, 2020 Supervising Physician Co-Signing Physician Notes Resident Physician Supervision Note: I independently interviewed and examined the patient and verified the araujo history and physical, reviewed labs and image studies, discussed the case with the resident Dr. Sanchez and agree with the findings and care plan. Subjective NAEO. Says pain is much better controlled today now that she has been taking some medications. Pain is noted as shooting down her right lower extremity from her buttocks. No numbness/tingling in the groin. No inability to control bladder/bowel. Has been able to ambulate to the bathroom independently with a walker. Further denies pain elsewhere. Endorses good appetite. No n/v/d. No CP/palpitations/SOB. Review of Systems Review of Systems: as per HPI Physical Exam Physical Exam: well-appearing 70 year old female who is lying back in her hospital bed, relaxed, reading a book upon my arrival. Just ate breakfast. Con verses freely during our conversation, making good eye contact. NAD. Respiratory: Good respiratory effort with symmetric expansion of the chest. Lungs are CTAB w/o crackles or wheezes. Cardiovascular: Normal rate, regular rhythm. S1/S2 present without m/r/g. Musculoskeletal: Mild lower extremity edema, ~1+, in both extremities bilaterally. No pain to palpation on either leg. LLE hip and knee strength about 4/5 to flexion/extension. RLE hip and knee strength 5/5. Sensation to light touch in tact. Results & Data Results & Data ([facility]) Vital Signs (Past 12 Hours) Vital Signs Temp Pulse Resp BP Pulse Ox 07/13/20 23:24 36.9 C 56 L 18 139/64 96 Resident Activity Tracking Resident Involvement: Resident Care Provided Care Provided: Adult [facility]
[2020-07-14] MEDS ORDERED: HYDROmorphone INJ 0.5 MG/0.5 ML SYR IV PRN (08:53)
[2020-07-14] MEDS: PANTOprazole 40 MG TAB PO SCH (09:12)
[2020-07-14] MEDS: CEROVITE ADV FORMULA TAB PO SCH (09:13)
[2020-07-14] MEDS: hydroCHLOROthiazide 25 MG TAB PO SCH (09:13)
[2020-07-14] MEDS: POTASSIUM CHLORIDE 10 MEQ TABCR PO SCH (09:13)
[2020-07-14] MEDS: BUMETANIDE 1 MG TAB PO SCH (09:13)
[2020-07-14] MEDS: OLMESARTAN MEDOXOMIL 20 MG TAB PO SCH (09:13)
[2020-07-14] MEDS: DULoxetine HCL 60 MG CAP PO SCH (09:13)
[2020-07-14] MEDS: HYDROXYCHLOROQUINE SULFATE 200 MG TAB PO SCH ×2 (09:13→21:20)
[2020-07-14] MEDS: GABAPENTIN 100 MG CAP PO SCH ×3 (09:19→21:20)
--- NOTE | 2020-07-14 09:28 | Pain Management Consultation ---
Date of Consultation July 14, 2020 Assessment & Plan (1) Spinal stenosis, lumbar region with neurogenic claudication: 1. Recommend initiation of gabapentin 100 mg p.o. 3 times daily. Patient was counseled on the risk benefits and side effects and orders are placed. 2. Recommend conversion from IV steroid to Medrol Dosepak in preparation for discharge. 3. I discussed her MRI results with the patient and [id number] in detail. No evidence for metastasis was noted on MRI performed 07/12/2020. 4. No neurosurgical red flags are noted on today's examination, thus feel appropriate to recommend conservative measures. I offered the patient a L4-5 right interlaminar epidural steroid injection. She was counseled extensively on the risk, benefits, expectations of the procedure and agrees to proceed. This will be tentatively scheduled for 07/16/2020 at 11:15 AM. 5. Discussed short course of physical therapy as an outpatient for overall strength, reconditioning, back protective strategies. 6. Recommend continuation of Cymbalta at 60 mg p.o. daily with judicious usage of OxyIR 7. This plan was discussed with the hospitalist. Thank you very much for this consultation we will be happy to follow with the patient as an outpatient. (2) Lumbar back pain with radiculopathy affecting right lower extremity: (3) DJD (degenerative joint disease) of knee: Laterality: bilateral (4) Obesity, morbid, BMI 40.0-49.9: (5) Anxiety and depression: (6) Malignant neoplasm of upper-inner quadrant of left breast in female, estrogen receptor negative: (7) Rheumatoid arthritis: History of Present Illness Attending Physician: Megan Beck MD History of Present Illness 70-year-old female with 20 to 30 years of low-grade axial low back pain. However shortly before Thanksgiving without known injury she has been experience 80% right L4 radicular symptoms to 20% axial low back pain symptoms. She states the pain is shooting and stabbing. She admits that pain starts after standing for approximately 2 to 3 minutes. She denies any bowel or bladder incontinence, motor weakness, footdrop, fever, chills, and or night sweats. Pain ranges between 6-7 out of 10 and is improved with the initiation of IV steroids during this hospitalization. She continues to utilize her outpatient Cymbalta without side effect. She has utilized OxyIR 5 mg x 1 and IV hydromorphone 0.5 mg x 1. She denies any side effects from her medications at this time. She reports that she had difficulty ambulating prior to admission which prompted her to present to the emergency room, but now feels that she is more stable on her feet with her walker and has not had any difficulty since. Pain Assessment [facility] Combined Pain Scale: 4-Mild to Mod - Interrupts ADLs. Decrease in job performance Allergies Allergy/AdvReac Type Severity Reaction Status Date / Time No Known Allergies Allergy Verified 07/12/20 19:48 Home Medications Medication Instructions Recorded Confirmed Type cholecalciferol (vitamin D3) 5,000 unit PO QPM 04/25/18 07/12/20 History multivitamin with minerals 1 tab PO QAM tab 02/12/19 07/12/20 History hydroxychloroquine 200 mg tablet 200 mg PO BID 09/05/19 07/12/20 History bumetanide 2 mg PO QAM 07/12/20 07/12/20 History celecoxib 200 mg PO QPM 07/12/20 07/12/20 History cyclobenzaprine 5 mg PO HS PRN 07/12/20 07/12/20 History duloxetine 60 mg PO QAM 07/12/20 07/12/20 History lorazepam 0.5 mg PO BID PRN 07/12/20 07/12/20 History olmesartan-hydrochlorothiazide 1 tab PO QAM 07/12/20 07/12/20 History omeprazole 20 mg PO QAM 07/12/20 07/12/20 History oxycodone 5 mg PO TID PRN 07/12/20 07/12/20 History potassium chloride [Klor-Con 10] 10 meq PO QAM 07/12/20 07/12/20 History prednisone See Rx Instructions .ROUTE .COMPLEX 07/12/20 07/12/20 History prednisone See Rx Instructions .ROUTE .COMPLEX 07/12/20 07/12/20 History Pain History Pain Location Full Body Front + Back: 1. 2. Patient History Medical History Anemia Arthritis Claudication of both lower extremities Depression Diastolic dysfunction Dyspnea on exertion Edema Elevated liver enzymes Family history of colon cancer GERD (gastroesophageal reflux disease) Hiatal hernia Hyperlipidemia Hypokalemia Impaired fasting glucose Inflammatory polyarthritis Joint stiffness Laryngopharyngeal reflux Left ventricular hypertrophy Long-term use of high-risk medication Long-term use of hydroxychloroquine Lumbar stenosis Malignant neoplasm of upper-inner quadrant of left breast in female, estrogen receptor negative Microscopic hematuria Moderate obstructive sleep apnea Nocturnal hypoxemia NSAID long-term use Obesity, morbid, BMI 40.0-49.9 Peripheral edema Positive SANCHEZ (antinuclear antibody) Positive anti-CCP test Rheumatoid arthritis ON [place]IL Shortness of breath on exertion Sleep apnea CPAP Spinal stenosis, lumbar region with neurogenic claudication URI (upper respiratory infection) Vitamin D insufficiency Surgical History History of cholecystectomy History of colonoscopy History of esophagogastroduodenoscopy (EGD) History of open reduction and internal fixation (ORIF) procedure R WRIST History of tonsillectomy and adenoidectomy History of total abdominal hysterectomy and bilateral salpingo-oophorectomy Status post right foot surgery Family History Mother , age 77 CHF Family history of diabetes mellitus Hypertension Family history of cardiac disorder Diabetes type 2 Brother , age 49 colon cancer Family hx of colon cancer Colorectal cancer Grandfather Family hx of colon cancer PATERNAL Father , age 60 cardiac arrest Family history of cardiac disorder Myocardial infarction Sister Family history of malignant neoplasm Breast cancer, Onset Age: 50 Son Allergic rhinitis Coronary heart disease Son No problems noted. Denies family history of Ovarian cancer Social History Smoking Status: Never smoker Second Hand Exposure: Yes (Second hand smoke exposure in the past.); Do You Dip or Chew Tobacco: No; Tobacco Cessation Education Requested by Patient: No Hx Alcohol Use: Yes Alcohol type: wine Hx Substance Use: No Preferred Language: Kinyarwanda Communication Ability: Effective Hearing Ability: Normal Fish Hatchery Man Required: No Beliefs That Will Affect Care: None marital status: / Current Living Situation: Alone Current Living Situation Comment: Lives alone at home. 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 Recent memory appears grossly intact. Pleasant and cooperative on today's examination. Interview occurred with [id number] Apryl at the request of the patient via telephone. Eyes: Pupils are equally round and reactive to light with normal size pupils, eyelids appear normal Ear, nose, mouth, and throat: Moist nasal and oral membranes, lips and tongues appear normal, no external ear abnormalities are noted Neck: The trachea is midline without deviation and no thyromegaly is noted Respiratory: Normal respiratory effort without distress, no audible wheezes or rhonchi CV: Normal S1 and S2 Chest: Deferred GI/abdomen: Non-tender, protuberant Musculoskeletal: Head is normocephalic and atraumatic, gait not observed but the patient was able to sit to stand without difficulty during interview. Cervical: Lordotic curve: Normal Range of motion is normal with extension, flexion, side-bending, rotation Strength: Strength is grossly equal bilaterally with 5 out of 5 strength in all planes Thoracic: Kyphotic curve: Normal Range of motion is normal with extension, flexion, side-bending, rotation Myofascial spasm: No appreciable spasm. No discrete trigger points noted Lumbar: Lordotic curve: Normal Range of motion is slightly decreased with extension, adequate flexion, side- bending, rotation Tenderness: Mildly tender over the axial midline L4-S1 Facet provocation: Positive bilaterally Straight leg raise: Negative bilaterally, not worsened with Achilles stretch Step-off injuries: None Strength: Strength is equal bilaterally with 5 out of 5 strength in all planes Sensation of lower extremities: Intact bilaterally Deep tendon reflexes: Rated at 1+ in bilateral L4 and S1 Myofascial spasm: Minimal spasm noted over lumbar paravertebral spinous musculature, right gluteal musculature, and bilateral quadratus lumborum. No discrete trigger points noted Greater trochanters: Minimally tender bilaterally Sacroiliac joints: Mildly tender bilaterally right greater than left Pathologic reflexes noted: None Skin: No rashes, lesions, ulcers, or induration noted Neuro: No nystagmus noted, the tongue is midline, the patient is able to rotate their head bilaterally : Deferred Results (Pain Clinic) Diagnostic Review MRI: non enhanced, reports reviewed and findings discussed with patient MRI Findings: 07/21/20 MRI OF THE LUMBAR SPINE WITHOUT IV CONTRAST CLINICAL HISTORY: Right-sided sciatica. Reported history of breast cancer. COMPARISON STUDY: Radiographs of lumbar spine dated 07/06/2020. TECHNIQUE: MRI of the lumbar spine is performed using various T1 and T2-weighted sequences in the axial and sagittal planes. IV contrast was not administered for this examination. The examination is degraded by motion artifact. FINDINGS: Lumbar spine: Marrow signal intensity is heterogeneous. Vertebral body height is maintained throughout the lumbar spine. There is 6 mm of anterolisthesis at L4- L5. Minimal retrolisthesis is seen at L1-L2 and L2-L3. Small anterior and lateral marginal osteophytes are seen throughout. The transverse and spinous processes appear intact. Hemangiomas are seen in the bodies of T12, L2, L4, and L5. No destructive bony lesion is seen. There is chronic degenerative endplate change noted at L1-L2, L3-L4, and L5-S1. Mild endplate edema is noted at L2-L3. Intervertebral discs: Degenerative disc desiccation and loss of height is seen throughout the lumbar spine. Loss of height is moderate at all levels and severe at L2-L3. Spinal cord: The visualized spinal cord is normal in morphology and signal intensity. The conus medullaris terminates at the level of L2. The nerve roots of the cauda equina are normal in morphology. T12-L1: There is minimal posterior disc bulge. The central canal is clear. There is moderate left-sided neural foraminal stenosis. L1-L2: There is minimal posterior disc bulge. The central canal is clear. There is mild bilateral subarticular stenosis. In conjunction with facet arthropathy there is mild left and [id number] right neural foraminal stenosis. L2-L3: There is a large posterior disc osteophyte complex. In conjunction with hypertrophy of the ligamentum flavum there is mild to moderate central canal stenosis at this level with a minimum AP diameter of 7 mm. There is bilateral subarticular stenosis with probable impingement on the exiting bilateral L2 nerve roots. This also abuts the transiting nerve roots. In conjunction with facet arthropathy there is moderate to severe bilateral neural foraminal stenosis. L3-L4: There is broad-based posterior disc bulge and annular fissure. In conjunction with hypertrophy of the ligamentum flavum there is mild to moderate central canal stenosis with a minimum AP diameter of 7 mm. There is bilateral karimi barticular stenosis, with possible impingement on the exiting left L3 nerve root. This also abuts the transiting bilateral nerve roots. In conjunction with facet arthropathy there is moderate bilateral neural foraminal stenosis. L4-L5: There is broad-based posterior disc bulge. In conjunction with hypertrophy of the ligamentum flavum and anterolisthesis there is moderate central canal stenosis at this level with a minimum AP diameter of 6 mm. There is right greater than left subarticular stenosis with impingement on the exiting bilateral L4 nerve roots. This also abuts the transiting bilateral nerve roots. In conjunction with facet arthropathy there is moderate to severe bilateral neural foraminal narrowing. There is a left-sided facet joint effusion. L5-S1: There is minimal posterior disc bulge. There is no acquired compromise of the central canal. There is mild bilateral subarticular stenosis. In conjunction with osteophytosis there may be impingement on the exiting left L5 nerve root. In conjunction with facet arthropathy there is moderate left and mild right neural foraminal stenosis. There is a left-sided facet joint effusion. Sacrum: The visualized sacrum is normal in morphology and signal intensity. Soft tissues: There is fatty atrophy of the paraspinous musculature. The retroperitoneal structures are grossly unremarkable but incompletely evaluated. IMPRESSION: 1. Multilevel lumbosacral spondylosis as above with multilevel acquired compromise of the central canal. See discussion for detailed level by level analysis. 2. Degenerative disc disease and degenerative endplate change as above. 3. No destructive bony lesion is identified. Radiology: reports reviewed and findings discussed with patient Radiology Findings: 07/06/20 XR lumbar spine min 4V routine CLINICAL HISTORY: low lumbar pain with radiculopathy R leg COMPARISON STUDY: Lumbar spine radiographs January 14, 2016. FINDINGS: There is 5 mm of retrolisthesis of L2 on L3. There is slight retrolisthesis of L3 on L4 and slight anterolisthesis of L4 and L5. Moderate to severe multilevel disc space narrowing with osteophytosis and vacuum disc phenomenon is noted. There has been moderate progression since prior radiographs. Moderate to severe multilevel facet arthrosis is noted. There is no lumbar spine fracture. No suspicious osseous lesions are identified by radiography. The bowel gas pattern is normal. Incidental note is made of cholecystectomy clips. IMPRESSION: 1. No acute lumbar spine fracture. 2. Moderate to severe multilevel degenerative disc disease and facet arthrosis within the lumbar spine. Previous Records Review Previous Records: personally reviewed by me Opioid Risk Assessment Opioid Risk Assessment: risk assessment performed and no issues identified
--- NOTE | 2020-07-14 09:47 | Orthopedic Consultation ---
Date of Consultation July 14, 2020 Assessment & Plan (1) Spinal stenosis, lumbar region with neurogenic claudication: I long discussion the patient today regarding MRI findings and clinical presentation. This time I emphasized that she should continue with physical therapy with possible interventional pain management. If she fails these modalities she may need to consider surgical intervention if she continues to have limitations. Surgery would be significant in nature requiring at minimum of lumbar decompression and fusion L4-L5. She will follow-up with me in the future if there is a change or decline in her status. At this point she agrees that she would like to exhaust conservative measures. Present on Admission?: Yes History of Present Illness Reason for Consultation: Back and right leg pain Attending Physician: Megan Beck MD History of Present Illness This is a very pleasant 70-year-old female states she had a significant onset of right groin right thigh pain radiating down to the right knee. It was markedly limiting her ability to stand and ambulate. She denies any specific trauma fall or event. Did not involve the left lower extremity. She denies any significant history of leg pain in the past denies any past epidural injections. Allergies Allergy/AdvReac Type Severity Reaction Status Date / Time No Known Allergies Allergy Verified 07/12/20 19:48 Home Medications Medication Instructions Recorded Confirmed Type cholecalciferol (vitamin D3) 5,000 unit PO QPM 04/25/18 07/12/20 History multivitamin with minerals 1 tab PO QAM tab 02/12/19 07/12/20 History hydroxychloroquine 200 mg tablet 200 mg PO BID 09/05/19 07/12/20 History bumetanide 2 mg PO QAM 07/12/20 07/12/20 History celecoxib 200 mg PO QPM 07/12/20 07/12/20 History cyclobenzaprine 5 mg PO HS PRN 07/12/20 07/12/20 History duloxetine 60 mg PO QAM 07/12/20 07/12/20 History lorazepam 0.5 mg PO BID PRN 07/12/20 07/12/20 History olmesartan-hydrochlorothiazide 1 tab PO QAM 07/12/20 07/12/20 History omeprazole 20 mg PO QAM 07/12/20 07/12/20 History oxycodone 5 mg PO TID PRN 07/12/20 07/12/20 History potassium chloride [Klor-Con 10] 10 meq PO QAM 07/12/20 07/12/20 History prednisone See Rx Instructions .ROUTE .COMPLEX 07/12/20 07/12/20 History prednisone See Rx Instructions .ROUTE .COMPLEX 07/12/20 07/12/20 History Patient History Medical History Anemia Arthritis Claudication of both lower extremities Depression Diastolic dysfunction Dyspnea on exertion Edema Elevated liver enzymes Family history of colon cancer GERD (gastroesophageal reflux disease) Hiatal hernia Hyperlipidemia Hypokalemia Impaired fasting glucose Inflammatory polyarthritis Joint stiffness Laryngopharyngeal reflux Left ventricular hypertrophy Long-term use of high-risk medication Long-term use of hydroxychloroquine Lumbar stenosis Malignant neoplasm of upper-inner quadrant of left breast in female, estrogen receptor negative Microscopic hematuria Moderate obstructive sleep apnea Nocturnal hypoxemia NSAID long-term use Obesity, morbid, BMI 40.0-49.9 Peripheral edema Positive SANCHEZ (antinuclear antibody) Positive anti-CCP test Rheumatoid arthritis ON [place] Shortness of breath on exertion Sleep apnea CPAP Spinal stenosis, lumbar region with neurogenic claudication URI (upper respiratory infection) Vitamin D insufficiency Surgical History History of cholecystectomy History of colonoscopy History of esophagogastroduodenoscopy (EGD) History of open reduction and internal fixation (ORIF) procedure R WRIST History of tonsillectomy and adenoidectomy History of total abdominal hysterectomy and bilateral salpingo-oophorectomy Status post right foot surgery Family History Mother , age 77 CHF Family history of diabetes mellitus Hypertension Family history of cardiac disorder Diabetes type 2 Brother , age 49 colon cancer Family hx of colon cancer Colorectal cancer Grandfather Family hx of colon cancer PATERNAL Father , age 60 cardiac arrest Family history of cardiac disorder Myocardial infarction Sister Family history of malignant neoplasm Breast cancer, Onset Age: 50 Son Allergic rhinitis Coronary heart disease Son No problems noted. Denies family history of Ovarian cancer Social History Smoking Status: Never smoker Second Hand Exposure: Yes (Second hand smoke exposure in the past.); Do You Dip or Chew Tobacco: No; Tobacco Cessation Education Requested by Patient: No Hx Alcohol Use: Yes Alcohol type: wine Hx Substance Use: No Preferred Language: Croatian Communication Ability: Effective Hearing Ability: Normal Chicken Vaccinator Required: No Beliefs That Will Affect Care: None marital status: / Current Living Situation: Alone Current Living Situation Comment: Lives alone at home. 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 She appears comfortable. Sensory symmetric and intact. There is no tension signs today. Results & Data ([facility]) Vital Signs (Past 12 Hours) Vital Signs Temp Pulse Resp BP Pulse Ox 07/14/20 07:33 36.4 C L 56 L 20 126/55 L 94 07/13/20 23:24 36.9 C 56 L 18 139/64 96
[2020-07-14] MEDS: oxyCODONE HCL IR 5 MG TAB (IMMEDIATE RELEASE) PO PRN (14:12)
[2020-07-14] MEDS: CHOLECALCIFEROL 1,000 UNITS 25 MCG TAB PO SCH (21:20)
[2020-07-15 01:09] VITALS: O2SAT 96
[2020-07-15] MEDS: dexAMETHasone 6 MG in SYRINGE 0 ML IV SCH ×3 (03:48→09:52)
[2020-07-15 06:29] LABS: Hematocrit (blood only) 35.9 % (37-47); Hemoglobin 12.6 g/dL (12.0-16.0); Immature Granulocytes # (auto) 0.02 K/uL (0.00-0.02); Immature Granulocytes % (auto) 0.2 %; Lymphocytes # (auto) 0.43 K/uL (1.2-3.4); Lymphocytes % (auto) 4.5 %; Mean Corpuscular Hemoglobin 32.8 pg (25-34); Mean Corpuscular Hgb Conc 35.1 g/dL (32-36); Mean Corpuscular Volume 93.5 fL (80-100); Mean Platelet Volume 8.9 fL (7.4-10.4); Monocytes # (auto) 0.25 K/uL (0.11-0.59); Monocytes % (auto) 2.6 %; Neutrophils # (auto) 8.93 K/uL (1.4-6.5); Neutrophils % (auto) 92.7 %; Platelet Count 254 K/uL (130-400); RDW Coefficient of Variation 13.3 % (11.5-14.5); RDW Standard Deviation 45.7 fL (36.4-46.3); Red Blood Count 3.84 M/uL (4.2-5.4); White Blood Count 9.63 K/uL (4.8-10.8)
[2020-07-15 06:57] LABS: Albumin Level 2.9 gm/dl (3.4-5.0); BUN Creatinine Ratio 36.9 (10-20); Calcium 9.3 mg/dl (8.5-10.1); Creatinine Clr Calc Pharmacy 57.4 ml/min; Est GFR (African American) 59.4; Est GFR (Non-African American) 51.2; Magnesium 2.3 mg/dl (1.8-2.4); Potassium 3.6 mmol/L (3.5-5.1)
[2020-07-15 06:58] VITALS: TEMP 98.2
[2020-07-15 07:08] LABS: Albumin Globulin Ratio 0.9 (0.9-2); Bilirubin,Total 0.4 mg/dl (0.2-1); Globulin 3.4 gm/dl (2.5-4.0); Total Protein 6.3 gm/dl (6.4-8.2)
[2020-07-15] MEDS: HYDROXYCHLOROQUINE SULFATE 200 MG TAB PO SCH (09:06)
[2020-07-15] MEDS: GABAPENTIN 100 MG CAP PO SCH (09:06)
[2020-07-15] MEDS: DULoxetine HCL 60 MG CAP PO SCH (09:07)
[2020-07-15] MEDS: PANTOprazole 40 MG TAB PO SCH (09:07)
[2020-07-15] MEDS: CEROVITE ADV FORMULA TAB PO SCH (09:07)
[2020-07-15] MEDS: POTASSIUM CHLORIDE 10 MEQ TABCR PO SCH (09:08)
[2020-07-15] MEDS: hydroCHLOROthiazide 25 MG TAB PO SCH (09:08)
[2020-07-15] MEDS: BUMETANIDE 1 MG TAB PO SCH ×2 (09:08→11:16)
[2020-07-15] MEDS: OLMESARTAN MEDOXOMIL 20 MG TAB PO SCH ×2 (09:08→11:15)
[2020-07-15] MEDS: HEPARIN 100 UNIT/ML 5ML FLUSH FLUSH PRN (09:53)
[2020-07-15 11:15] VITALS: PULSE 84
[2020-07-15 12:56] VITALS: BP 123/66
--- NOTE | 2020-07-15 20:06 | Discharge Summary ---
Date of Service July 15, 2020 Admission HPI Per Admitting Provider The patient is a 70-year-old female with a past medical history including right rotator cuff tear, DJD, bilateral knee pain, rheumatoid arthritis, moderate GERMAN, diastolic heart dysfunction, left ventricular hypertrophy, edema, anemia, hypertension, 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 The patient reports the acute onset of low back pain with radiation to right groin and down right leg. She reports no known stimulus for the pain and occurred without warning. She does have bilateral knee pain and gets regular injections. Admission Exam Per Admitting Provider The patient is awake, alert and oriented 3, well developed and well nourished, normocephalic and atraumatic, lying in bed and in no acute distress. HEENT--PERRL, EOMI, mucous membranes and oropharynx normal. Neck--supple. No JVD. No bruits. Thyroid normal, trachea midline, no adenopathy. Heart--normal S1 and S2. No murmurs, rubs or gallops. Lungs--clear bilaterally, no respiratory distress, no accessory muscle use. Abdomen--normal bowel sounds and soft. Nontender. Nondistended. Morbidly obese Extremities--no cyanosis or clubbing. No edema. Dermatologic--normal skin turgor, normal color, no abnormal lymph nodes, no rash. Neurologic--cranial nerves II through XII grossly intact. Rheumatologic--limited exam due to pain Psychiatric--normal affect. Principal Diagnosis spinal stenosis with neurogenic claudication Discharge Exam Constitutional WD/WN, vitals as above Respiratory normal respiratory effort, lungs clear to auscultation Cardiovascular RRR, no murmur, no edema Gastrointestinal (Abdomen) normal bowel sounds, soft, nontender, no hepatosplenomegaly Musculoskeletal Unchanged since yesterday -- Mild lower extremity edema persists, ~1+, in both extremities bilaterally. No pain to palpation on either leg. LLE hip and knee strength about 4/5 to flexion/extension. RLE hip and knee strength 5/5. Sensation to light touch in tact. Discharge Data Allergies Allergy/AdvReac Type Severity Reaction Status Date / Time No Known Allergies Allergy Verified 07/12/20 19:48 Consultations 07/12/20 18:59 ED Decision to Admit Stat 12/13/20 03:32 Consult Orthopedic Surgery Routine Consult Pain Management Routine Ordered Studies 07/12/20 15:21 MR lumbar spine wo con Stat Hospital Course (1) Lumbar back pain with radiculopathy affecting right lower extremity: Yamilet is a 70-year-old female with a notable PMH of rheumatoid arthritis, HTN, anxiety, depression, GERMAN w/ CPAP, and distolic dysfunction who presented to [facility] on 07/12 with a chief concern of extremely painful sciatica-type symptoms, subsequently found to have significant multilevel spinal stenosis with acquired compromise of the central canal. She is hemodynamically stable. Spinal Stenosis with Neurogenic Claudication - MRI performed in the ED demonstrated "Multilevel lumbosacral spondylosis as above with multilevel acquired compromise of the central canal. See discussion for detailed level by level analysis," consistent with the patient's symptoms - Orthopedic surgery consulted, appreciate recommendations: - Outpatient PT with interventional pain management - If conservative measures fail, can consider surgical intervention ("requiring at minimum... decompression and fusion of L4-L5") - Pain management consulted, appreciate recs: - Initiated gabapentin 100mg PO t.i.d. -- sent to patient's pharmacy upon d/c - started on Decadron 6mg IV q6h while inpatient, transition to Medrol DP upon d/c - Scheduled for epidural steroid injection 07/16 at 11:15A - Continue Cymbalta 60mg PO daily - Continue oxycodone 5mg PO q6h - PT evaluate and treat ordered: - Impression was that "...she demonstrated modified independent level ambulation on level surface with the use of her rolling walker. She is able to negotiate steps without assistance. [...] She is anticipated to return home following this admission and should follow-up with outpatient PT following her injection at the pain management clinic" - Hold Celebrex and NSAIDs with steroids currently -- consider restarting when appropriate given steroids - No red flags on history upon d/c Chronic Medical Problems - Chronic Diastolic CHF: Continue home Bumex. - Anxiety and Depression: Continue Cymbalta, Ativan - HTN: Continue Losartan/HCTZ. - RA: Continue HCQ; hold prednisone (on Decadron), hold Celebrex, hold Flexeril - GERMAN: CPAP qHS F/E/N: heart-healthy diet Dispo: med/surg ; PT eval and treat tomorrow AM, anticipate d/c thereafter PPX: Lovenox Code: FULL CODE (2) Anxiety and depression: (3) Hypertension: (4) Rheumatoid arthritis: (5) Long-term use of hydroxychloroquine: (6) Moderate obstructive sleep apnea: (7) Edema: (8) DVT prophylaxis: Total Time Total Time Spent Total Time Spent (In Minutes): see attending attestation Total Time Includes: Examination of the Patient, Discharge Planning, Medication Reconciliation, Communication With Other Providers and Other Discharge Plan Discharge Items Patient Disposition: Home - Self-Care Reason For Visit: LUMBAR DDD WITH RLE RADICULOPATHY Discharge Diagnosis: spinal stenosis, lumbar region, with neurogenic claudication Condition on Discharge: Good Activity: Per Instructions section Non-emergency contact: Primary Care Provider and Specialist Call non-emergency contact if: your symptoms worsen, your pain is not controlled and your pain is worsening Follow-up/Referrals: Katlin Nix CRNP [Primary Care Provider] - 07/21/20 10:30 am Diet: Regular Addtl Attending Provider Instructions: You were seen, evaluated, and treated at [facility] for right groin and right leg pain which significantly limited your ability to ambulate. Upon your arrival to the hospital, you underwent an MRI of the spine which demonstrated significant degeneration of the lumbar spine and compression/narrowing of the spinal canal. This is almost certainly the cause of your pain. During your stay, you had several different hospital teams to help manage your pain and plan out future interventions. Your pain management plan is discussed further below. Prior to your discharge, you were seen by physical therapy - continue to use your walker as needed for ambulation -- please continue to follow their recommendations. If, at any time, your pain becomes uncontrolled, you begin developing numbness/tingling around your groin or buttocks, lose control of your bowel or bladder control, or motor skills -- or any other symptoms that are concerning to you -- please do not hesitate to seek emergency evaluation at the ER or [place] [id number]. Pain Management Plan: - Steroid taper: Please follow instructions on the steroid dose pack provided to you. Once completed, please resume your prednisone. - Gabapentin 100mg three times daily -- this can be increased as needed in the outpatient setting - Proceed with steroid injection with pain management in the outpatient setting on 12/16 at 11:15AM - Continue Cymbalta 60mg daily - Proceed with trial of outpatient physical therapy to optimize range of motion, strength, and functionality -- out of these, hope to increase pain control. - Can continue to follow with Pain Management in the outpatient setting if needed - Continue to follow with Dr. Everett in Orthopedics in the outpatient setting as needed: as you both discussed, can consider surgical intervention if these first-line measures do note work. Pending Studies at Discharge: No Stand-Alone Forms: My [facility] Medications and DC Order Prescriptions: New methylprednisolone [Methylpred DP] 4 mg tablets,dose pack See Rx Instructions .ROUTE .COMPLEX Qty: 21 RF: 0 gabapentin 100 mg capsule 100 mg PO TID 30 Days Qty: 90 RF: 0 Continued hydroxychloroquine [Plaquenil] 200 mg tablet 200 mg PO BID RF: 0 cholecalciferol (vitamin D3) 5,000 unit Capsule 5,000 unit PO QPM RF: 0 multivitamin with minerals tablet 1 tab PO QAM RF: 0 bumetanide 2 mg tablet 2 mg PO QAM RF: 0 oxycodone 5 mg tablet 5 mg PO TID PRN (Reason: Pain) RF: 0 duloxetine 60 mg capsule, delayed rel sprinkle 60 mg PO QAM RF: 0 prednisone 5 mg tablet See Rx Instructions .ROUTE .COMPLEX RF: 0 potassium chloride [Klor-Con 10] 10 mEq tablet extended release 10 meq PO QAM RF: 0 lorazepam 0.5 mg tablet 0.5 mg PO BID PRN (Reason: Anxiety) RF: 0 olmesartan-hydrochlorothiazide 20-12.5 mg tablet 1 tab PO QAM RF: 0 omeprazole 20 mg tablet,delayed release (DR/EC) 20 mg PO QAM RF: 0 Discontinued cyclobenzaprine 5 mg Tablet 5 mg PO HS PRN (Reason: Muscle Spasm) RF: 0 celecoxib 200 mg capsule 200 mg PO QPM RF: 0 prednisone 10 mg tablet See Rx Instructions .ROUTE .COMPLEX RF: 0 Discharge Orders: Discharge Order (Routine); Ordered 07/15/20 Ordered By: John Chavez/Other Patient Handouts: ED Degenerative Disk Disease Admission Data Admit Date/Time: 07/12/20 19:59 Attending Provider: Megan Beck Admit Provider: Kristian López Primary Care Provider: Katlin Nix Other Providers: Kristian López ; Peter Everett ; Marques De Leon ; Chelo Gardner Other Interventions: Discharge Summary Assessment (RN) Last Done: 07/15/20 12:55 Supervising Physician Co-Signing Physician Notes Resident Physician Supervision Note: I independently interviewed and examined the patient and verified the araujo history and physical, reviewed labs and image studies, discussed the case with the resident Dr. Sanchez and agree with the findings and care plan. Resident Activity Tracking Resident Involvement: Resident Care Provided Care Provided: Adult Hospital Medicine
== END 2020-07-15 13:31 | disposition home or self-care (01) | DRG 552 ==
LOC: ED 14:30 → SUATTDRO 19:59 → 3N 19:59
DX: I50.32 Chronic diastolic (congestive) heart failure; Z68.41 Body mass index [BMI] 40.0-44.9, adult; M48.062 Spinal stenosis, lumbar region with neurogenic claudication; I11.0 Hypertensive heart disease with heart failure; F41.8 Other specified anxiety disorders; E66.01 Morbid (severe) obesity due to excess calories; Z79.899 Other long term (current) drug therapy; Z83.3 Family history of diabetes mellitus; G47.33 Obstructive sleep apnea (adult) (pediatric); M17.0 Bilateral primary osteoarthritis of knee; Z85.3 Personal history of malignant neoplasm of breast; M06.9 Rheumatoid arthritis, unspecified

== ENCOUNTER 2020-11-10 05:24 | Observation (INO) ==
--- NOTE | 2020-10-10 13:17 | PAT Medication Instructions ---
Medication Instructions Date of Service October 10, 2020 Home Medications Medication Instructions Recorded potassium chloride 10 mEq 10 meq PO QAM #30 tab 08/08/20 tablet,extended release cyclobenzaprine 5 mg tablet 5 mg PO TID PRN #60 tab 08/18/20 Lift chair #1 ea 08/22/20 tramadol 50 mg tablet 50 mg PO Q6H PRN #20 tab 09/10/20 cholecalciferol (vitamin D3) 5,000 unit PO QDL multivitamin with minerals 1 tab PO QDL hydroxychloroquine 200 mg tablet 200 mg PO BID bumetanide 2 mg PO QAM duloxetine 30 mg PO BID lorazepam 0.5 mg PO BID PRN olmesartan-hydrochlorothiazide 1 tab PO QAM omeprazole 20 mg PO QAM prednisone 5 mg PO QAM potassium chloride 10 mEq tablet,extended release 10 meq PO QAM cyclobenzaprine 5 mg tablet 5 mg PO TID PRN tramadol 50 mg tablet 50 mg PO Q6H PRN celecoxib [Celebrex] 200 mg PO QDL gabapentin 100 mg PO BID ASK your surgeon for instructions celecoxib [Celebrex] 200 mg PO QDL ASK your prescriber and surgeon hydroxychloroquine 200 mg tablet 200 mg PO BID DO NOT take the morning of surgery cholecalciferol (vitamin D3) 5,000 unit PO QDL multivitamin with minerals 1 tab PO QDL bumetanide 2 mg PO QAM olmesartan-hydrochlorothiazide 1 tab PO QAM potassium chloride 10 mEq tablet,extended release 10 meq PO QAM cyclobenzaprine 5 mg tablet 5 mg PO TID PRN Take morning of surgery With a small sip of water, OTHERWISE NOTHING TO EAT OR DRINK AFTER MIDNIGHT: duloxetine 30 mg PO BID lorazepam 0.5 mg PO BID PRN (if needed) omeprazole 20 mg PO QAM prednisone 5 mg PO QAM tramadol 50 mg tablet 50 mg PO Q6H PRN (okay to take up to 4 hours prior to surgery if needed) gabapentin 100 mg PO BID Take evening before surgery duloxetine 30 mg PO BID lorazepam 0.5 mg PO BID PRN (if needed) cyclobenzaprine 5 mg tablet 5 mg PO TID PRN (if needed) tramadol 50 mg tablet 50 mg PO Q6H PRN (if needed) gabapentin 100 mg PO BID Other Notes If you have any questions please call us at [phone] or [phone] or [phone] or [phone]
--- NOTE | 2020-10-15 09:04 | Anesthesiology Consultation ---
Date of Service October 15, 2020 Assessment & Plan (1) Encounter for pre-operative examination: - COVID screening: Per assessment on 10/15: Travel screen negative, no known COVID-19 positive contacts or current COVID-19 related symptoms. Surgeon arrkrysta maciel preop COVID testing (scheduled 11/03; PV). Awaiting results. - PCP office visit: 08/18/20: "From my perspective no change in medication at this time." Chronic issues stable. F/U 6 months recommended. - LUE limb restriction: s/p left breast partial breast mastectomy - Hx difficult intubation: Patient had left partial breast mastectomy at [facility] 05/22/2019. Per anesthesia records (scanned into [employer])- "Patient reports history of previous difficult intubation. Patient intubated 05/22/19 with glidescope/fiberoptic combination. Small oropharynx, large epiglottis, anterior larynx, large neck with redundant tissue in airway. Patient adequately ventilated with two handed bag-mask ventilation." Glidescope #4, ETT 7.0 (attempts x2) Chart Review Chart Review: Acceptable Risk for Surgery and Patient seen in Pre Admission Testing Teaching & Discussion Pre-Anesthesia Teaching/Discussion Notes: Instructed NPO after midnight before surgery,except medications with 15 cc of water. Medication instructions provid ed according to the PAT guidelines. History Surgery Operation Date: 11/10/20 13:20 Proposed Procedures p Right Lateral Total Hip Arthroplasty - Charan Nichols, Height/Weight Height: 5 ft 2 in Weight: 119.9 kg Allergies Allergy/AdvReac Type Severity Reaction Status Date / Time No Known Allergies Allergy Verified 10/03/20 11:17 Medications Home Medications Medication Instructions Recorded Confirmed Last Taken cholecalciferol (vitamin D3) 5,000 unit PO QDL 04/25/18 10/03/20 07/11/20 multivitamin with minerals 1 tab PO QDL tab 02/12/19 10/03/20 07/12/20 hydroxychloroquine 200 mg tablet 200 mg PO BID 09/05/19 10/03/20 07/12/20 AM DOSE bumetanide 2 mg PO QAM 07/12/20 10/03/20 07/12/20 duloxetine 30 mg PO BID 07/12/20 10/03/20 07/12/20 lorazepam 0.5 mg PO BID PRN 07/12/20 10/03/20 Unknown olmesartan-hydrochlorothiazide 1 tab PO QAM 07/12/20 10/03/20 07/12/20 omeprazole 20 mg PO QAM 07/12/20 10/03/20 07/12/20 prednisone 5 mg PO QAM 07/12/20 10/03/20 07/06/20 potassium chloride 10 mEq 10 meq PO QAM #30 tab 08/08/20 10/03/20 Unknown tablet,extended release cyclobenzaprine 5 mg tablet 5 mg PO TID PRN #60 tab 08/18/20 10/03/20 Unknown Lift chair #1 ea 08/22/20 08/29/20 Unknown tramadol 50 mg tablet 50 mg PO Q6H PRN #20 tab 09/10/20 10/03/20 Unknown gabapentin 100 mg PO BID 10/03/20 10/03/20 Unknown celecoxib 200 mg capsule 200 mg PO DAILY PRN #90 cap 10/10/20 Unknown Past Medical History Medical History (Updated 10/15/20 @ 10:51 by Serenity Deluna) Anemia Arthritis Bulging discs L2-5 Claudication of both lower extremities Depression GERD (gastroesophageal reflux disease) controlled Hiatal hernia Hyperlipidemia Inflammatory polyarthritis Lumbar stenosis Malignant neoplasm of upper-inner quadrant of left breast in female, estrogen receptor negative s/p left partial mastectomy (2018), completed chemo/radiation (2019)> port to right upper chest still in place Nocturnal hypoxemia Obesity, morbid, BMI 40.0-49.9 Rheumatoid arthritis on Plaquenil/prednisone 5mg daily chronic (mostly affects spine/hip/knee locations, no cervical issues) Sleep apnea CPAP Spinal stenosis, lumbar region with neurogenic claudication Exercise / Class Metabolic Activity III < 4 Walking/Shop/Light housework (uses walker) Past Family History Family History Mother , age 77 CHF Family history of diabetes mellitus Hypertension Family history of cardiac disorder Diabetes type 2 Brother , age 49 colon cancer Family hx of colon cancer Colorectal cancer Grandfather Family hx of colon cancer PATERNAL Father , age 60 cardiac arrest Family history of cardiac disorder Myocardial infarction Sister Family history of malignant neoplasm Breast cancer, Onset Age: 50 Son Allergic rhinitis Coronary heart disease Son No problems noted. Denies family history of Ovarian cancer Past Surgical History Surgical History (Updated 10/15/20 @ 10:51 by Serenity Deluna) History of cholecystectomy History of colonoscopy History of esophagogastroduodenoscopy (EGD) History of lumpectomy of left breast partial History of open reduction and internal fixation (ORIF) procedure right wrist History of tonsillectomy and adenoidectomy History of total abdominal hysterectomy and bilateral salpingo-oophorectomy History of vascular access device present right chest Status post right foot surgery Past Anesthesia History Difficult Airway and No Family Hx of Anesthesia Complications Hx difficult intubation: Patient had left partial breast mastectomy at [facility] 05/22/2019. Per anesthesia records (scanned into [facility])- "Patient reports history of previous difficult intubation. Patient intubated 05/22/19 with glidescope/fiberoptic combination. Small oropharynx, large epiglottis, anterior larynx, large neck with redundant tissue in airway. Patient adequately ventilated with two handed bag-mask ventilation." Glidescope #4, ETT 7.0 (attempts x2) History of PONV No Hx of PONV and No Hx of Motion Sickness Social History Smoking Status: Never smoker Do You Dip or Chew Tobacco: No Hx Alcohol Use: Yes Alcohol type: wine alcohol intake frequency: a few times a month Hx Substance Use: No substance use type: does not use Review of Systems Patient denies chest pain, shortness of breath, dyspnea on exertion, joint pain, reflux, cough, wheezing, palpitations. Physical Exam Vital Signs VITALS BP 106/70 P 76 TEMP 97.7 SP02 98%RA RESP 16 PHYSICAL Full neck and c-spine range of motion. Full TMJ range of motion. TMD 3 finger breaths Difficult to palpate Mallampati Score 3 Dentition: intact, + caps (several all over) Lungs: clear throughout to auscultation Cardiac: regular rate and rhythm, no murmurs noted Spine: normal Carotid arteries: negative bruit Extremities: non-pitting LE edema Short, thick neck Testing Laboratory Results 10/15/20 09:53 10/15/20 09:33 PT 9.9 Seconds (9.0-12.0) 10/15/20 09:53 INR 1.0 (0.9-1.1) 10/15/20 09:53 APTT 22.7 Seconds (21.0-31.0) 10/15/20 09:53 Blood Type A Negative 10/15/20 09:53 Antibody Screen NEGATIVE 10/15/20 09:53 Mild hypokalemia on preop labs (patient already taking potassium supplementation). At anesthesiologist discretion AM DOS if recheck needed. Electrocardiogram Date: 10/15/20 Findings: + NSR @ (71) Chest X-Ray Date: 10/15/20 FINDINGS: The heart is enlarged. There is a retrocardiac opacity consistent with a moderate hiatal hernia. There is a right-sided A-Port catheter present. There is no failure. There is no lobar consolidation. There are linear opacities wi thin the left midlung zone, likely representing atelectasis/scarring. Degenerative changes are present within the dorsal spine. IMPRESSION: Persistent cardiomegaly and moderate hiatal hernia. No acute findings. Echocardiogram Date: 09/28/19 EF 55 to 60%. No significant valvular disease. Mild concentric LVH. No regional wall motion abnormality. Stress Test Date: 05/07/19 Type: DSE Negative DSE and stress EKG for myocardial ischemia at 89% MPHR. No dobutamine induced chest pain. No significant valvular disease. Left ventricle is normal in size and systolic function.
--- NOTE | 2020-10-15 09:58 | XRay Report ---
XR chest Pre-admission PA/Lat CLINICAL HISTORY: Preoperative chest COMPARISON STUDY: 09/20/2019 FINDINGS: The heart is enlarged. There is a retrocardiac opacity consistent with a moderate hiatal he rnia. There is a right-sided A-Port catheter present. There is no failure. There is no lobar consolid ation. There are linear opacities within the left midlung zone, likely representing atelectasis/scarr ing. Degenerative changes are present within the dorsal spine.[ IMPRESSION: Persistent cardiomegaly and moderate hiatal hernia. No acute findings. ACT 112: Negative or not required by law. Electronically signed by: Danny Huizar M.D. 10/15/2020 9:56 AM
[2020-10-15 10:47] LABS: Basophils # (auto) 0.01 K/uL (0-0.2); Basophils % (auto) 0.2 %; Eosinophils # (auto) 0.21 K/uL (0-0.5); Eosinophils % (auto) 3.6 %; Hematocrit (blood only) 36.3 % (37-47); Hemoglobin 12.1 g/dL (12.0-16.0); Immature Granulocytes # (auto) 0.01 K/uL (0.00-0.02); Immature Granulocytes % (auto) 0.2 %; Lymphocytes # (auto) 0.76 K/uL (1.2-3.4); Lymphocytes % (auto) 12.9 %; Mean Corpuscular Hemoglobin 32.1 pg (25-34); Mean Corpuscular Hgb Conc 33.3 g/dL (32-36); Mean Corpuscular Volume 96.3 fL (80-100); Mean Platelet Volume 8.5 fL (7.4-10.4); Monocytes % (auto) 6.8 %; Neutrophils # (auto) 4.48 K/uL (1.4-6.5); Neutrophils % (auto) 76.3 %; Platelet Count 250 K/uL (130-400); RDW Coefficient of Variation 12.9 % (11.5-14.5); RDW Standard Deviation 45.2 fL (36.4-46.3); Red Blood Count 3.77 M/uL (4.2-5.4); White Blood Count 5.87 K/uL (4.8-10.8)
[2020-10-15 10:57] LABS: Partial Thromboplastin Ratio 0.9; Partial Thromboplastin Time 22.7 Seconds (21.0-31.0); Prothrombin Time 9.9 Seconds (9.0-12.0)
[2020-10-15 12:47] LABS: BUN Creatinine Ratio 25.6 (10-20); Calcium 10.1 mg/dl (8.5-10.1); Creatinine Clr Calc Pharmacy 65.2 ml/min; Est GFR (African American) 68.5; Est GFR (Non-African American) 59.1; Potassium 3.2 mmol/L (3.5-5.1)
--- NOTE | 2020-10-16 05:52 | Electrocardiogram Report ---
Test Reason : Blood Pressure : / mmHG Vent. Rate : 071 BPM Atrial Rate : 071 BPM P-R Int : 186 ms QRS Dur : 100 ms QT Int : 414 ms P-R-T Axes : 029 056 017 degrees QTc Int : 449 ms Normal sinus rhythm Normal ECG When compared with ECG of 10-OCT-2016 07:24, No significant change was found Confirmed by Ervin Harrison ([id number]) on 10/16/2020 5:52:23 AM Referred By: Charan Nichols Confirmed By:Ervin Harrison
[2020-11-10] MEDS ORDERED: ceFAZolin 2000MG 2,000 MG/15 ML SYR IV SCH (06:00)
[2020-11-10] MEDS ORDERED: GABAPENTIN 300 MG CAP PO SCH (06:00)
[2020-11-10] MEDS ORDERED: ROPIVACAINE 0.5% HCL/PF 150 MG, BUPIVACAINE 0.75% MPF 20 ML, EPINEPHrine 30MG/30ML (OR ... INSTIL SCH (06:00)
[2020-11-10] MEDS ORDERED: FAMOTIDINE 20 MG TAB PO SCH (06:00)
[2020-11-10] MEDS ORDERED: TRANEXAMIC ACID 1,000 MG **IV Pre-op IV SCH (06:00)
[2020-11-10] MEDS ORDERED: TRANEXAMIC ACID 1,000 MG **IV Intra-op IV SCH (06:00)
[2020-11-10] MEDS ORDERED: LR 60ML/HR IV SCH (06:00)
[2020-11-10] MEDS ORDERED: LR 500ML BOLUS, THEN 15ML/HR IV SCH (06:00)
[2020-11-10] MEDS ORDERED: BUPIVACAINE 0.5 % 5 MG/1 ML PF 10ML VIAL ONE (06:19)
--- NOTE | 2020-11-10 06:25 | History & Physical Report ---
Date of Service November 10, 2020 Assessment & Plan (1) Rheumatoid arthritis involving right hip: We will proceed with a right lateral total hip arthroplasty. Postoperatively she will be started on aspirin for DVT prophylaxis and kept overnight in the hospital for postoperative pain management. She plans [facility]. History of Present Illness Chief Complaint: Rheumatoid arthritis of the right hip. Primary Care Provider: BONIFACIO Pacheco Yamilet is a pleasant 70-year-old female who is been having a 6-month history of severe right hip pain. Prior to 6 months ago, she was an independent ambulator with mild hip pain. She then began having severe right hip pain and has been downgraded to a walker. X-rays and clinical examination have been diagnostic for advanced rheumatoid arthritis of the right hip. After failing conservative treatment, she has elected to proceed with a right total hip arthroplasty.. Allergies Allergy/AdvReac Type Severity Reaction Status Date / Time No Known Allergies Allergy Verified 11/10/20 05:58 Home Medications Medication Instructions Recorded Confirmed Type cholecalciferol (vitamin D3) 5,000 unit PO QDL 04/25/18 11/10/20 History multivitamin with minerals 1 tab PO QDL tab 02/12/19 11/10/20 History hydroxychloroquine 200 mg tablet 200 mg PO BID 09/05/19 11/10/20 History bumetanide 2 mg PO QAM 07/12/20 11/10/20 History duloxetine 30 mg PO BID 07/12/20 11/10/20 History olmesartan-hydrochlorothiazide 1 tab PO QAM 07/12/20 11/10/20 History omeprazole 20 mg PO QAM 07/12/20 11/10/20 History prednisone 5 mg PO QAM 07/12/20 11/10/20 History potassium chloride 10 mEq 10 meq PO QAM #30 tab 08/08/20 11/10/20 Rx tablet,extended release cyclobenzaprine 5 mg tablet 5 mg PO TID PRN #60 tab 08/18/20 11/10/20 Rx Lift chair #1 ea 08/22/20 10/30/20 Rx lorazepam 0.5 mg tablet 0.5 mg PO BID PRN #60 tab 10/23/20 11/10/20 Rx tramadol 50 mg tablet 50 mg PO Q6H PRN #20 tab 10/24/20 11/10/20 Rx celecoxib [Celebrex] 200 mg PO DAILY 10/27/20 11/10/20 History magnesium oxide 400 mg PO DAILY PRN 10/27/20 11/10/20 History cephalexin 750 mg capsule 750 mg PO TID #21 cap 10/28/20 11/10/20 Rx Past Med/Surg History Medical History Anemia Arthritis Bulging discs L2-5 Claudication of both lower extremities Depression GERD (gastroesophageal reflux disease) controlled Hiatal hernia Hyperlipidemia Inflammatory polyarthritis Lumbar stenosis Malignant neoplasm of upper-inner quadrant of left breast in female, estrogen receptor negative (04/24/19) Nocturnal hypoxemia Obesity, morbid, BMI 40.0-49.9 Rheumatoid arthritis on Plaquenil/prednisone 5mg daily chronic (mostly affects spine/hip/knee locations, no cervical issues) Sleep apnea CPAP Spinal stenosis, lumbar region with neurogenic claudication Surgical History History of cholecystectomy History of colonoscopy History of esophagogastroduodenoscopy (EGD) History of lumpectomy of left breast partial History of open reduction and internal fixation (ORIF) procedure right wrist History of tonsillectomy and adenoidectomy History of total abdominal hysterectomy and bilateral salpingo-oophorectomy History of vascular access device present right chest Status post right foot surgery Family History Mother , age 77 CHF Family history of diabetes mellitus Hypertension Family history of cardiac disorder Diabetes type 2 Brother , age 49 colon cancer Family hx of colon cancer Colorectal cancer Grandfather Family hx of colon cancer PATERNAL Father , age 60 cardiac arrest Family history of cardiac disorder Myocardial infarction Sister Family history of malignant neoplasm Breast cancer, Onset Age: 50 Son Allergic rhinitis Coronary heart disease Son No problems noted. Denies family history of Ovarian cancer Social History Smoking Status: Never smoker Second Hand Exposure: Yes (father smoked); Do You Dip or Chew Tobacco: No; Tobacco Cessation Education Requested by Patient: No Hx Alcohol Use: Yes Alcohol type: wine Hx Substance Use: No Preferred Language: Egyptian Communication Ability: Effective Hearing Ability: Normal Fret Saw Operator Required: No Beliefs That Will Affect Care: None marital status: / Current Living Situation: Alone Current Living Situation Comment: Lives alone at home. 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 Physical Exam On physical examination of the right hip, she has severe pain with flexion. She has pain with forced internal or external rotation. All of her pains located in her groin. She has some pain that radiates around to her back.. Constitutional WD/WN, vitals as above Eyes PERRL, conjunctivae normal, anicteric sclerae ENMT external ear and nose normal, oropharynx normal Neck trachea midline, no thyromegaly Respiratory normal respiratory effort Cardiovascular RRR, no murmur, no edema Gastrointestinal (Abdomen) normal bowel sounds, soft, nontender, no hepatosplenomegaly Psychiatric A+Ox3, euthymic affect Results & Data Results & Data Laboratory Results . Diagnostic Findings X-rays of the right hip and pelvis do show advanced arthritis with joint space narrowing, osteophyte formation, and [id number] articulation. PG Care Time/CCT Total # of Minutes Spent Total Time Spent with Patient: Total time spent is greater than 50% in coordination of care (as documented) at patient's floor/unit and/or counseling patient: Coding Level of Care Code None Diagnoses Rheumatoid arthritis involving right hip M06.9
[2020-11-10] MEDS ORDERED: PHENYLEPHRINE 100MCG/ML 5ML SYR ONE (06:54)
[2020-11-10] MEDS ORDERED: PROPOFOL IV EMULSION 10 MG/ML 20 ML VIAL IV ONE (06:54)
[2020-11-10] MEDS ORDERED: LIDOCAINE HCL 2% 2 ML VIAL/AMP(20MG/ML) INFIL ONE (06:54)
[2020-11-10] MEDS ORDERED: ePHEDrine sulfate 50 MG/ML SYR ONE (06:54)
[2020-11-10] MEDS ORDERED: fentaNYL citrate 100 MCG/2 ML VIAL ONE (06:55)
[2020-11-10] MEDS ORDERED: MIDAZOLAM HCL 1 MG/ML 2ML VIAL ONE (06:55)
[2020-11-10] MEDS ORDERED: ORTHO JOINT ANESTHETIC ONE (06:58)
[2020-11-10] MEDS ORDERED: ePHEDrine sulfate 50 MG/ML AMP IV PRN (07:56)
[2020-11-10] MEDS ORDERED: ATROPINE SULFATE 0.1 MG/ML 10ML SYR IV PRN (07:56)
--- NOTE | 2020-11-10 08:52 | XRay Report ---
XR hip RT 1V CLINICAL HISTORY: RT LATERAL HIP REVISION COMPARISON: Pelvis and hip radiographs September 10, 2020. FINDINGS: Expected intraoperative findings during total right hip arthroplasty are noted. No fractur e is noted. IMPRESSION: Expected intraoperative findings during total right hip arthroplasty. ACT 112: Negative or not required by law. Electronically signed by: Javon Mueller M.D. 11/10/2020 8:50 AM
--- NOTE | 2020-11-10 09:27 | Operative Report ---
PG Post Operative Report Pre & Post Diagnosis Operation Date: 11/10/20 07:15 Pre-Op Diagnosis: Right Hip Rheumatoid Arthritis with morbid obesity Post-Op Diagnosis: Right Hip Rheumatoid Arthritis with morbid obesity I identified the patient and participated in the time-out.: Yes Procedure Operation Date: 11/10/20 07:15 Actual Procedures p Right Lateral Total Hip Arthroplasty--Uncemented(Right) - Charan Nichols DO Modifier 22: For morbid obesity with a BMI of 47.2 Surgeon Charan Nichols DO Oxide Furnace Tender Charan Myrick PAC Estimated Blood Loss 300 Findings Consistent with Post-Op Diagnosis Specimens Right femoral head Complications none Disposition Disposition: Recovery Room Indications Yamilet is a pleasant 70-year-old female who is been dealing with chronic increasing right hip and groin pain. She has been downgraded to a walker because of her right hip pain. She has advanced rheumatoid arthritis of the right hip. After failing conservative treatment, she elected to proceed with a right lateral total hip arthroplasty. Description of Procedure Modifier 22: The patient was morbidly obese. She has a BMI of 47.2. This caused the case to take 50% longer than a standard hip replacement procedure. The increase time was necessary for deep retractor placement as well as increased incision and increased closure time. Implants used I used a Kelvin Avenir complete total hip arthroplasty system with a size 3 standard collared Avenir complete stem, a 50 mm G7 cup with a 25mm screw, an E1 polyethylene liner, a 36 mm ceramic head with a 0 neck. Yamilet arrived at the hospital for the above procedure. She was seen in the preoperative holding area and the operative extremity was identified and signed. She was given a spinal anesthetic, a preoperative antibiotic, and TXA. She was then taken back to the operating room and laid on the table in the supine position. She was given basic sedation. She was then put into the lateral decubitus position. The right leg was then prepped and draped in sterile fashion. A timeout was done. The patient and the operative extremity was properly identified. A lateral approach was used. Dissection was taken down through the fascia and the abductors were exposed. The anterior third of the abductors were tenotomized off the greater trochanter. The capsule was then excised. The hip was then dislocated. The femoral neck was resected and the femoral head was removed. The acetabulum was then exposed. Time was spent doing a complete circumferential capsular labral release. Sequential reaming of the acetabulum up to a size 49 reamer was done. A size 50 G7 cup was then impacted into place. A manhole cover was placed followed by a 25 mm screw. The proximal femur was then exposed. Sequential broaching up to a size 3 broach was done. A standard femoral neck and a 0 head were trialed. The hip was reduced. The hip was brought through a full range of motion and felt to be stable. A single flat plate x-ray was taken and I was happy with the overall alignment of the components and sizing of the femoral stem. The hip was then dislocated. The broach was removed. The final size 3 after near complete standard offset collared stem was then impacted into place. A 0 neck 36 mm ceramic head was then impacted into place. The hip was then reduced. The hip was brought through full range of motion and felt to be stable. The wound was then irrigated. The surrounding soft tissues were injected with 100 cc of an orthopedic pain control cocktail. The abductors were tenodesed back to the gre ater trochanter with transosseous FiberWire sutures and side to side sutures. The fascia was closed with #1 Vicryl. The deep fat layer was closed with #1 Vicryl. The skin was then closed with 2-0 Vicryl and blaine. She was placed in a soft dressing. She was then transferred to a hospital bed and taken to the postanesthesia care unit in stable condition. She tolerated the procedure well. Charan Myrick PA-C, was present for the entire procedure. He was critical for patient positioning, prepping, draping, retraction exposure, wound closure and application of sterile dressing. I attest to the content of the Intraoperative Record and any orders documented therein. Any exceptions are noted below.
--- NOTE | 2020-11-10 09:44 | XRay Report ---
XR hip 1V RT w pelvis HISTORY: 70 years-old Female IN PACU - A/P PELVIS and LATERAL HIP right hip total joint arthroplast y COMPARISON: Right hip radiographs of same day TECHNIQUE: AP view the pelvis with crosstable lateral view of the right hip FINDINGS: Right hip total joint arthroplasty and a straight satisfactory alignment. No acute fracture, malalign ment or unexpected opaque foreign body. Overlying lateral skin blaine are present along with expecte d postsurgical soft tissue swelling and deep tissue air. Left hip osteoarthritis. IMPRESSION: Right hip total joint arthroplasty with expected postoperative changes. ACT 112: Negative or not required by law. The above report was generated using voice recognition software. It may contain grammatical, syntax o r spelling errors. Electronically signed by: Thomas Gibson M.D. 11/10/2020 9:43 AM
[2020-11-10] MEDS ORDERED: ONDANSETRON INJ 2 MG/ML 2 ML VIAL IV PRN (10:17)
[2020-11-10] MEDS ORDERED: LORazepam 0.5 MG TAB PO PRN (10:17)
[2020-11-10] MEDS ORDERED: HYDROmorphone INJ 0.5 MG/0.5 ML SYR IV PRN (10:17)
[2020-11-10] MEDS ORDERED: MAGNESIUM HYDROXIDE SUSP 30 ML UDC PO PRN (10:17)
[2020-11-10] MEDS ORDERED: bisacodyL 10 MG SUPP PR PRN (10:17)
[2020-11-10] MEDS ORDERED: NALOXONE HCL 0.4 MG/1 ML VIAL/CARP IV PRN (10:17)
[2020-11-10] MEDS ORDERED: METOCLOPRAMIDE HCL INJ 5 MG/ML 2 ML VIAL IV PRN (10:17)
--- NOTE | 2020-11-10 10:39 | Anesthesiology Progress Note ---
Date of Service November 10, 2020 Anesthesia Post Procedure Vital Signs Vital Signs: Temp Pulse Pulse Resp BP Pulse Ox 11/10/20 10:32 36.4 C L 74 18 107/65 100 11/10/20 10:05 36.6 C 73 18 121/70 100 11/10/20 09:55 36.2 C L 75 15 106/64 100 11/10/20 09:45 77 15 110/60 100 11/10/20 09:35 76 15 115/75 100 11/10/20 09:25 80 15 137/61 100 11/10/20 09:19 36.2 C L 80 16 114/67 99 11/10/20 06:46 83 20 127/67 92 11/10/20 06:07 37 C 83 20 140/79 97 Pain Intensity Right Foot: Pain Intensity: 7 Transfer of Care Handoff Completed per policy Notes Mental Status: alert / awake / arousable Patient Amnestic to Procedure: Yes Nausea / Vomiting: adequately controlled Pain: adequately controlled Airway Patency, RR, SpO2: stable & adequate BP & HR: stable & adequate Hydration State: stable & adequate Neuraxial Anesthesia: was administered and sensory block is resolving Anesthetic Complications: no major complications apparent
[2020-11-10] MEDS: KETOROLAC TROMETHAMINE 15 MG/ML VIAL IV SCH ×3 (11:54→23:47)
[2020-11-10] MEDS: SODIUM CHLORIDE 0.9% 1000ML 1,000 ML IV SCH ×2 (11:58→22:08)
[2020-11-10] MEDS: ACETAMINOPHEN 500 MG TAB PO SCH ×2 (13:45→22:09)
[2020-11-10] MEDS: ceFAZolin 2000MG 2,000 MG/15 ML SYR IV SCH ×2 (16:33→23:47)
[2020-11-10] MEDS: oxyCODONE HCL IR 5 MG TAB (IMMEDIATE RELEASE) PO PRN ×2 (18:22→22:27)
[2020-11-10] MEDS: HYDROXYCHLOROQUINE SULFATE 200 MG TAB PO SCH (20:52)
[2020-11-10] MEDS: DULoxetine HCL 30 MG CAP PO SCH (20:53)
[2020-11-10] MEDS: SENNA 8.6 MG TAB PO SCH (20:53)
[2020-11-10] MEDS: ASPIRIN 81 MG ECTAB PO SCH (20:53)
[2020-11-10] MEDS: DOCUSATE SODIUM 100 MG CAP PO SCH (20:53)
[2020-11-11] MEDS: KETOROLAC TROMETHAMINE 15 MG/ML VIAL IV SCH ×4 (05:37→23:11)
[2020-11-11] MEDS: ACETAMINOPHEN 500 MG TAB PO SCH ×3 (05:38→21:59)
--- NOTE | 2020-11-11 06:57 | Orthopedic Progress Note ---
Date of Service November 11, 2020 Assessment & Plan (1) Status post right hip replacement: Overall she is doing very well. She is having some soreness in the hip which is to be expected. She will be seen by therapy today for ambulation. She is on aspirin for DVT prophylaxis. She was hoping to go to rehab. We will keep her in the hospital today for therapy and pain control. She will be seen by case management as well. Hopefully we can discharge her to rehab either tomorrow or . Manuel Woodard was seen and examined at bedside this morning. Overall she is doing very well. She is having some soreness in the right hip but is not too bad. She has been up and ambulating to the bathroom. She has no new complaints.. Review of Systems All systems reviewed & are unremarkable except as noted in HPI & below. Physical Exam On physical examination of the right hip, the dressing is clean and dry. Her leg lengths are equal. She has active dorsiflexion and plantarflexion of her right ankle. Sensation is intact throughout.. Results & Data Results & Data Laboratory Results . Diagnostic Findings Postoperative x-rays of the right hip show the prosthesis to be in anatomic alignment without any evidence of fracture, dislocation, or loosening. PG Care Time/CCT Total # of Minutes Spent Total Time Spent with Patient: Total time spent is greater than 50% in coordination of care (as documented) at patient's floor/unit and/or counseling patient: Coding Level of Care Code 33278 Post Operative Follow-Up Diagnoses Status post right hip replacement Z96.641
[2020-11-11] MEDS: ASPIRIN 81 MG ECTAB PO SCH ×2 (08:56→21:59)
[2020-11-11] MEDS: hydroCHLOROthiazide 25 MG TAB PO SCH (08:57)
[2020-11-11] MEDS: HYDROXYCHLOROQUINE SULFATE 200 MG TAB PO SCH ×2 (08:57→21:59)
[2020-11-11] MEDS: BUMETANIDE 1 MG TAB PO SCH (08:58)
[2020-11-11] MEDS: POTASSIUM CHLORIDE 10 MEQ TABCR PO SCH (08:58)
[2020-11-11] MEDS: OLMESARTAN MEDOXOMIL 20 MG TAB PO SCH (08:58)
[2020-11-11] MEDS: MULTIVITAMIN TAB PO SCH (08:58)
[2020-11-11] MEDS: DULoxetine HCL 30 MG CAP PO SCH ×2 (08:58→21:59)
[2020-11-11] MEDS: DOCUSATE SODIUM 100 MG CAP PO SCH ×2 (08:59→21:59)
[2020-11-11] MEDS: predniSONE 5 MG TAB PO SCH (08:59)
[2020-11-11] MEDS: oxyCODONE HCL IR 5 MG TAB (IMMEDIATE RELEASE) PO PRN (09:04)
[2020-11-11] MEDS: HEPARIN 100 UNIT/ML 5ML FLUSH FLUSH PRN ×2 (18:28→23:11)
[2020-11-11] MEDS: SENNA 8.6 MG TAB PO SCH (21:59)
[2020-11-12] MEDS: ACETAMINOPHEN 500 MG TAB PO SCH ×3 (05:56→22:39)
[2020-11-12] MEDS: KETOROLAC TROMETHAMINE 15 MG/ML VIAL IV SCH (05:56)
[2020-11-12] MEDS: HEPARIN 100 UNIT/ML 5ML FLUSH FLUSH PRN ×2 (05:58→13:06)
--- NOTE | 2020-11-12 06:21 | Orthopedic Progress Note ---
Date of Service November 12, 2020 Assessment & Plan (1) Status post right hip replacement: Overall she is doing very well. She is having much pain in the right hip. She will be seen by physical therapy today for ambulation and range of motion exercises. She can be discharged to a nursing facility later today. She will follow-up with orthopedics in 2 weeks. Manuel Woodard was seen and examined at bedside this morning. Overall she is doing well. She is not having too much pain in the right hip. She was able to ambulate well yesterday with physical therapy. She has no complaints.. Review of Systems All systems reviewed & are unremarkable except as noted in HPI & below. Physical Exam On physical examination of the right hip, the dressing has been changed and the blaine are dry and open to air. There is no drainage. Her leg lengths are equal. She is neurovascular intact.. Results & Data Results & Data Laboratory Results . Diagnostic Findings . PG Care Time/CCT Total # of Minutes Spent Total Time Spent with Patient: Total time spent is greater than 50% in coordination of care (as documented) at patient's floor/unit and/or counseling patient: Coding Level of Care Code 07300 Post Operative Follow-Up Diagnoses Status post right hip replacement Z96.641
--- NOTE | 2020-11-12 06:22 | Discharge Summary ---
Date of Service November 12, 2020 Admission HPI (Per Admitting) Yamilet is a pleasant 70-year-old female who is been having a 6-month history of severe right hip pain. Prior to 6 months ago, she was an independent ambulator with mild hip pain. She then began having severe right hip pain and has been downgraded to a walker. X-rays and clinical examination have been diagnostic for advanced rheumatoid arthritis of the right hip. After failing conservative treatment, she has elected to proceed with a right total hip arthroplasty.. Admission Exam (Per Admitting) On physical examination of the right hip, she has severe pain with flexion. She has pain with forced internal or external rotation. All of her pains located in her groin. She has some pain that radiates around to her back.. Principal Diagnosis Same as "Discharge Diagnosis" noted below under Discharge Instructions. Discharge Exam On physical examination of the right hip, the dressing has been changed and the blaine are dry and open to air. There is no drainage. Her leg lengths are equal. She is neurovascular intact.. Discharge Data Procedures Performed Operation Date: 11/10/20 07:15 Actual Procedures p Right Lateral Total Hip Arthroplasty--Uncemented(Right) - Charan Nichols DO Hospital Course (1) Status post right hip replacement: On November 10, 2020 Yamilet arrived at [facility] and underwent a right lateral hip replacement without complication. She had a spinal anesthetic. Postoperatively she was started on aspirin for DVT prophylaxis and transferred to the general orthopedic floors. Her hospital course was uneventful. On postop day #1 her vital signs were stable and her pain was well controlled. She was able to participate well with physical therapy doing ambulation and range of motion exercises. On postop day #2 she continued to do fairly well. She was not having too much pain in the hip. She was then discharged to a alf facility. She will follow-up with orthopedics in 2 weeks. PG Care Time/CCT Total # of Minutes Spent Total Time Spent with Patient: Total time spent is greater than 50% in coordination of care (as documented) at patient's floor/unit and/or counseling patient: Discharge Plan Discharge Items Patient Disposition: Transfer [facility] Fac Reason For Visit: Right Hip Arthritis Discharge Diagnosis: Right hip replacement Activity: As commented below Non-emergency contact: Surgeon Call non-emergency contact if: your wound has increased redness and your wound has increased drainage Follow-up/Referrals: Katlin Nix CRNP [Primary Care Provider] - Diet: Regular Addtl Attending Provider Instructions: Activity and Therapy Recommendations: * If you are using [facility] then therapy will be provided at your home until they feel you have accomplished all of your goals. * If you are using [facility] then Physical Therapy will be provided until they feel you are ready to start Outpatient Physical Therapy. * If you are not using home therapy then Outpatient Physical Therapy should start about 3-5 days from your day of surgery. Therapy will last about 6-10 weeks * You were shown a series of exercises in the hospital. Do these exercises three times each day including the exercises you were shown in physical therapy. * Get up and walk several times each day.~ For the first four weeks, try not to stand or walk for more than one hour at a time. If you do stand or walk for more than one hour, you will not hurt anything, but your leg will likely swell.~~ * As you feel comfortable, you may change from the walker or crutches to a cane and~then to independent walking. Medications: * Narcotic You will likely be sent home from the hospital with a prescription for the narcotic pain medication that worked best throughout your stay. * Aspirin Most patients will be required to take Aspirin 81mg twice a day for 6 weeks after surgery. This is obtained [id number] and a prescription is not necessary. * Other medications may be prescribed for specific circumstances. If you have any questions, please call the office at . * Resume previous home medications unless otherwise instructed TEDs/Elastic Stockings: The white elastic stockings help limit swelling and prevent blood clots from forming in your legs. The more you wear them, the more they work. Wear them for six weeks. Dressing Care: Do daily dry dressing changes. If the incision is not draining then you may leave the blaine open to air. If there is a little bit of drainage or if the blaine are getting stuck on your clothing then cover the incision with a dry dressing. The blaine will be removed at your 2 week follow-up appointment. Showering: You may shower 5 days after the day of surgery Let soapy water run over the blaine and pat them dry. Do not scrub or soak the incision. Things To Watch For: * Drainage from the incision site that occurs more than one week after your surgery. * Increased redness at the incision site. * Fever above 102 degrees Fahrenheit. * Unusual chest pain or shortness of breath. * Call [facility] at with any of the above problems Follow-Up Visit: Follow-up with Dr. Nichols's PA (Charan Myrick) 2-3 weeks after your day of surgery. He will remove your blaine and answer any questions. If you have any additional questions or concerns, Dr Nichols is usually in the office at the same time and will be available An appointment was probably scheduled when you signed-up for surgery in the office. If you have any questions call Office Instructions: More detailed instructions as well as Frequently Asked Questions were provided in a folder by our office when you signed-up for surgery. Please review these instructions when you get home. If you have any further questions or concerns, please feel free to call the office at [phone] Pending Studies at Discharge: No Stand-Alone Forms: My [facility] [email or web address], Smoking Cessation Skilled Items Patient informed of condition?: Yes DNR: No Discharge Level of Care: Skilled Communicable Disease: No Discharge Prognosis: Improving Lines: None Urinary Catheter: No Medications and DC Order Prescriptions: New oxycodone 5 mg Tablet 5 mg PO Q4H PRN (Reason: pain) Qty: 30 RF: 0 aspirin 81 mg Tablet,Delayed Release (Dr/Ec) 81 mg PO BID 42 Days Qty: 0 RF: 0 Continued hydroxychloroquine [Plaquenil] 200 mg tablet 200 mg PO BID RF: 0 potassium chloride [Klor-Con 10] 10 mEq tablet extended release 10 meq PO QAM Qty: 30 RF: 2 (DME) Lift chair See Rx Instructions .Route .MEDSUPPLY Qty: 1 RF: 0 lorazepam 0.5 mg tablet 0.5 mg PO BID PRN (Reason: Anxiety) Qty: 60 RF: 0 tramadol 50 mg tablet 50 mg PO Q6H PRN (Reason: pain) Qty: 20 RF: 0 cyclobenzaprine 5 mg tablet 5 mg PO TID PRN (Reason: muscle spasm) Qty: 60 RF: 0 cephalexin [Keflex] 750 mg capsule 750 mg PO TID Qty: 21 RF: 0 cholecalciferol (vitamin D3) 5,000 unit Capsule 5,000 unit PO QDL RF: 0 multivitamin with minerals tablet 1 tab PO QDL RF: 0 bumetanide 2 mg tablet 2 mg PO QAM RF: 0 duloxetine 60 mg capsule, delayed rel sprinkle 30 mg PO BID RF: 0 prednisone 5 mg tablet 5 mg PO QAM RF: 0 olmesartan-hydrochlorothiazide 20-12.5 mg tablet 1 tab PO QAM RF: 0 omeprazole 20 mg tablet,delayed release (DR/EC) 20 mg PO QAM RF: 0 magnesium oxide 400 mg magnesium Tablet 400 mg PO DAILY PRN (Reason: LEG CRAMPS) RF: 0 celecoxib [Celebrex] 200 mg capsule 200 mg PO DAILY RF: 0 Discharge Orders: Discharge Order (Routine); Ordered 11/12/20 Ordered By: Charan Nichols Admission Data Admit Date/Time: 11/10/20 09:22 Attending Provider: Charan Nichols Admit Provider: Charan Nichols Primary Care Provider: Katlin Nix Other Providers: Sukhjinder [facility]
[2020-11-12] MEDS: MULTIVITAMIN TAB PO SCH (07:33)
[2020-11-12] MEDS: predniSONE 5 MG TAB PO SCH (07:34)
[2020-11-12] MEDS: DOCUSATE SODIUM 100 MG CAP PO SCH ×2 (07:34→20:06)
[2020-11-12] MEDS: DULoxetine HCL 30 MG CAP PO SCH ×2 (07:34→20:07)
[2020-11-12] MEDS: hydroCHLOROthiazide 25 MG TAB PO SCH (07:34)
[2020-11-12] MEDS: OLMESARTAN MEDOXOMIL 20 MG TAB PO SCH (07:34)
[2020-11-12] MEDS: POTASSIUM CHLORIDE 10 MEQ TABCR PO SCH (07:34)
[2020-11-12] MEDS: HYDROXYCHLOROQUINE SULFATE 200 MG TAB PO SCH ×2 (07:34→20:06)
[2020-11-12] MEDS: BUMETANIDE 1 MG TAB PO SCH (07:34)
[2020-11-12] MEDS: ASPIRIN 81 MG ECTAB PO SCH ×2 (07:34→20:05)
[2020-11-12] MEDS: oxyCODONE HCL IR 5 MG TAB (IMMEDIATE RELEASE) PO PRN ×3 (08:44→20:04)
[2020-11-12] MEDS: SENNA 8.6 MG TAB PO SCH (20:06)
[2020-11-13] MEDS: oxyCODONE HCL IR 5 MG TAB (IMMEDIATE RELEASE) PO PRN ×3 (03:07→14:29)
[2020-11-13] MEDS: ACETAMINOPHEN 500 MG TAB PO SCH ×2 (05:45→14:03)
[2020-11-13 06:32] VITALS: TEMP 98.1
[2020-11-13] MEDS: BUMETANIDE 1 MG TAB PO SCH (08:26)
[2020-11-13] MEDS: DULoxetine HCL 30 MG CAP PO SCH (08:29)
[2020-11-13] MEDS: OLMESARTAN MEDOXOMIL 20 MG TAB PO SCH ×2 (08:30→09:27)
[2020-11-13] MEDS: hydroCHLOROthiazide 25 MG TAB PO SCH ×2 (08:30→09:27)
[2020-11-13] MEDS: ASPIRIN 81 MG ECTAB PO SCH (08:30)
[2020-11-13] MEDS: POTASSIUM CHLORIDE 10 MEQ TABCR PO SCH (08:30)
[2020-11-13] MEDS: predniSONE 5 MG TAB PO SCH (08:30)
[2020-11-13] MEDS: HYDROXYCHLOROQUINE SULFATE 200 MG TAB PO SCH (08:30)
[2020-11-13] MEDS: DOCUSATE SODIUM 100 MG CAP PO SCH (08:30)
[2020-11-13] MEDS: MULTIVITAMIN TAB PO SCH (08:30)
[2020-11-13 09:25] VITALS: BP 107/63; PULSE 92
[2020-11-13 11:35] VITALS: O2SAT 90
== END 2020-11-13 15:04 ==
LOC: ASU 05:24 → 3E 05:24

== ENCOUNTER 2021-03-09 09:34 | Inpatient (IN) ==
--- NOTE | 2021-03-03 15:34 | Anesthesiology Consultation ---
Date of Service March 03, 2021 Assessment & Plan (1) Encounter for pre-operative examination: Chart Review Chart Review: Acceptable Risk for Surgery (pending preop Covid testing results ) and Patient NOT seen in Pre Admission Testing Hx difficult intubation Per 10/15/20 anesthesia consultation: Patient had left partial breast mastectomy at [facility] 05/22/2019. Per anesthesia records (scanned into [employer])- "Patient reports history of previous difficult intubation. Patient intubated 05/22/19 with glidescope/fiberoptic combination. Small oropharynx, large epiglottis, anterior larynx, large neck with redundant tissue in airway. Patient adequately ventilated with two handed bag-mask ventilation." Glidescope #4, ETT 7.0 (attempts x2) LUE limb restriction: s/p left breast partial breast mastectomy Per nursing assessment 02/25/2021, patient resides in [facility]. Wears mask when inside buildings, socially distances. No known Covid infection in the past 90 days. Patient is vaccinated for Covid. No known Covid positive contacts or Covid related symptoms. Preop Covid testing scheduled 03/05/21 or 03/06/21= will await results Right VIC 11/10/2020 = done under [facility] at L3-4 with one attempt. History Surgery Operation Date: 03/09/21 11:20 Proposed Procedures p L4-L5 Bilateral Lumbar Laminectomy, Medial Facetectomies, Foraminotomies - Osman Bautista MD Height/Weight Height: 5 ft 2 in Weight: 113.398 kg Allergies Allergy/AdvReac Type Severity Reaction Status Date / Time No Known Allergies Allergy Verified 03/03/21 09:09 Medications Home Medications Medication Instructions Recorded Confirmed Last Taken cholecalciferol (vitamin D3) 125 5,000 unit PO QDL 04/25/18 03/03/21 11/09/20 15:00 mcg (5,000 unit) capsule multivitamin with minerals 1 tab PO QDL tab 02/12/19 03/03/21 11/09/20 17:00 hydroxychloroquine 200 mg tablet 200 mg PO BID 09/05/19 03/03/21 11/09/20 17:00 (Plaquenil) olmesartan 20 1 tab PO QAM 07/12/20 03/03/21 11/09/20 09:00 mg-hydrochlorothiazide 12.5 mg tablet omeprazole 20 mg tablet,delayed 20 mg PO QAM 07/12/20 03/03/21 11/10/20 04:30 release prednisone 5 mg tablet 5 mg PO QAM 07/12/20 03/03/21 11/10/20 04:30 cyclobenzaprine 5 mg tablet 5 mg PO TID PRN #60 tab 08/18/20 03/03/21 2 Weeks Ago ~10/27/20 Lift chair #1 ea 08/22/20 03/03/21 Unknown magnesium oxide 400 mg PO DAILY PRN 10/27/20 03/03/21 1 Week Ago ~11/03/20 oxycodone 5 mg tablet 5 mg PO Q4H PRN #30 tab 11/12/20 03/03/21 Unknown duloxetine 60 mg capsule,delayed 60 mg PO QAM cap 11/27/20 03/03/21 Unknown release sprinkle potassium chloride 10 mEq 10 meq PO QAM #30 tab 12/02/20 03/03/21 Unknown tablet,extended release (Klor-Con) tramadol 50 mg tablet 50 mg PO Q6H PRN #30 tab 12/18/20 03/03/21 Unknown bumetanide 2 mg tablet 2 mg PO QAM #90 tab 02/10/21 03/03/21 Unknown lorazepam 0.5 mg tablet 0.5 mg PO BID PRN #60 tab 02/23/21 03/03/21 Unknown celecoxib 200 mg capsule (Celebrex) 200 mg PO QPM 02/25/21 03/03/21 Unknown Past Medical History Medical History (Updated 03/03/21 @ 15:31 by Lin Franco PA-C) Claudication of both lower extremities Depression Difficult airway for intubation WITH BREAST SURGERY 05/2019 [facility] GERD (gastroesophageal reflux disease) controlled Hiatal hernia Hyperlipidemia Hypertension Inflammatory polyarthritis Malignant neoplasm of upper-inner quadrant of left breast in female, estrogen receptor negative (04/24/19) 2018- s/p chemo and XRT/lumpectomy and SN biopsy Last heme note 01/2021- pt under observation- has port flushed q 6 weeks Nocturnal hypoxemia Obesity, morbid, BMI 40.0-49.9 Rheumatoid arthritis on Plaquenil/prednisone 5mg daily chronic (mostly affects spine/hip/knee locations, no cervical issues) Sleep apnea CPAP SOB (shortness of breath) on exertion Spinal stenosis, lumbar region with neurogenic claudication Past Family History Family History Mother , age 77 CHF Family history of diabetes mellitus Hypertension Family history of cardiac disorder Diabetes type 2 Brother , age 49 colon cancer Family hx of colon cancer Colorectal cancer Grandfather Family hx of colon cancer PATERNAL Father , age 60 cardiac arrest Family history of cardiac disorder Myocardial infarction Sister Family history of malignant neoplasm Breast cancer, Onset Age: 50 Son Allergic rhinitis Coronary heart disease Son No problems noted. Denies family history of Ovarian cancer Past Surgical History Surgical History History of cholecystectomy History of colonoscopy History of esophagogastroduodenoscopy (EGD) History of lumpectomy of left breast partial History of open reduction and internal fixation (ORIF) procedure right wrist History of tonsillectomy and adenoidectomy History of total abdominal hysterectomy and bilateral salpingo-oophorectomy History of total hip arthroplasty RIGHT 10/2020 History of vascular access device present right chest Status post right foot surgery Social History Smoking Status: Never smoker Do You Dip or Chew Tobacco: No Hx Alcohol Use: Yes Alcohol type: wine alcohol intake frequency: a few times a week Hx Substance Use: Yes substance use type: prescription drug Lab Results Anesthesia Preop Results Results Anesthesia Widget: WBC 5.35 K/uL (4.8-10.8) 02/27/21 Hgb 12.8 g/dL (12.0-16.0) 02/27/21 Hct 37.5 % (37-47) 02/27/21 Plt 268 K/uL (130-400) 02/27/21 Na 139 mmol/L (136-145) 02/27/21 K 3.4 mmol/L (3.5-5.1) L 02/27/21 Cl 102 mmol/L (98-107) 02/27/21 CO2 32 mmol/L (21-32) 02/27/21 BUN 23 mg/dl (7-18) H 02/27/21 Creat 0.90 mg/dl (0.6-1.2) 02/27/21 Glucose Level 114 mg/dl (70-99) H 02/27/21 Blood Type A Negative 02/27/21 Antibody Screen NEGATIVE 02/27/21 Testing Electrocardiogram Date: 10/15/20 Findings: + NSR @ (71) Normal EKG per cardio. Chest X-Ray Date: 10/15/20 FINDINGS: The heart is enlarged. There is a retrocardiac opacity consistent with a moderate hiatal hernia. There is a right-sided A-Port catheter present. There is no failure. There is no lobar consolidation. There are linear opacities within the left midlung zone, likely representing atelectasis/scarring. Degenerative changes are present within the dorsal spine. IMPRESSION: Persistent cardiomegaly and moderate hiatal hernia. No acute findings. Echocardiogram Date: 09/28/19 EF 55 to 60%. No significant valvular disease. Mild concentric LVH. No regional wall motion abnormality. Stress Test Date: 05/07/19 Type: DSE Negative DSE and stress EKG for myocardial ischemia at 89% MPHR. No dobutamine induced chest pain. No significant valvular disease. Left ventricle is normal in size and systolic function.
[~2021-03-09 09:34] MED LIST changes: -B-COTAB53 PO; -BNC/20125 PO; -CHOL1000 PO; -ESCI10TA17 PO; +LR 15ML/HR IV SCH; +LR 60ML/HR IV SCH; -MULT-513 PO; -PRLSR20 PO; +ceFAZolin 2000MG 2,000 MG/15 ML SYR IV SCH
[2021-03-09] MEDS ORDERED: NEOSTIGMINE METHYLSULFATE 1 MG/ML 10ML VIAL ONE (11:34)
[2021-03-09] MEDS ORDERED: ONDANSETRON INJ 2 MG/ML 2 ML VIAL ONE (11:34)
[2021-03-09] MEDS ORDERED: DEXAMETHASONE SOD INJ 4 MG/ML VIAL ONE (11:34)
[2021-03-09] MEDS ORDERED: PROPOFOL IV EMULSION 10 MG/ML 20 ML VIAL IV ONE (11:34)
[2021-03-09] MEDS ORDERED: LIDOCAINE 2% 2 ML VIAL/AMP(20MG/ML) INFIL ONE (11:34)
[2021-03-09] MEDS ORDERED: MIDAZOLAM HCL 1 MG/ML 2ML VIAL ONE (11:34)
[2021-03-09] MEDS ORDERED: GLYCOPYRROLATE 0.2 MG/ML VIAL ONE ×2 (11:34→14:42)
[2021-03-09] MEDS ORDERED: fentaNYL citrate 100 MCG/2 ML VIAL ONE ×2 (11:35→14:54)
[2021-03-09] MEDS ORDERED: ATROPINE SULFATE 0.1 MG/ML 10ML SYR IV PRN (11:41)
[2021-03-09] MEDS ORDERED: LABETALOL HCL IV 5 MG/ML 20ML IV PRN (11:41)
[2021-03-09] MEDS ORDERED: ONDANSETRON INJ 2 MG/ML 2 ML VIAL IV PRN ×2 (11:41→17:38)
--- NOTE | 2021-03-09 11:57 | History & Physical Bridge Note ---
Date of Service March 09, 2021 History & Physical Bridge Note I have examined the patient, reviewed the History & Physical and in the interval since the performance of the History & Physical I have noted the following changes of clinical significance: no changes noted New changes compared to last appointment: nil new Musculoskeletal: 5/5 motor strength bilateral L2-S1. Straight leg raise neg Neurologic: Sensation 2/2 to light touch bilateral L2-S1 except bilateral soles of feet 1/2 (chronic) Patient marked for surgery. All new questions about procedure answered. Informed consent confirmed
[2021-03-09] MEDS ORDERED: VANCOMYCIN HCL 1000MG/20ML VIAL ONE ×2 (12:16→14:22)
[2021-03-09] MEDS ORDERED: GELATIN SPONGE SZ 100 ONE (12:17)
[2021-03-09] MEDS ORDERED: THROMBIN FOR SOLN 20000 UNIT KIT ONE ×2 (12:17→12:19)
[2021-03-09] MEDS: HYDROmorphone INJ 1 MG/ML SYRINGE IV PRN ×8 (12:55→16:05)
[2021-03-09] MEDS ORDERED: FLOSEAL HEMOSTATIC MATRIX 10ML TOP ONE (13:32)
[2021-03-09] MEDS ORDERED: ROCURONIUM BROMIDE 10 MG/ML 5 ML VIAL IV ONE (14:38)
--- NOTE | 2021-03-09 15:10 | Post Operative Brief Note ---
PG Immediate Post Op with CF Date of Surgery March 09, 2021 Pre & Post Diagnosis Operation Date: 03/09/21 Pre-Op Diagnosis: Neurogenic Claudication due to spinal stenosis with spondylolisthesis L4-5 Post-Op Diagnosis: Neurogenic Claudication due to spinal stenosis with spondylolisthesis L4-5 I identified the patient and participated in the time-out.: Yes Procedure L4-L5 Bilateral Lumbar Laminectomy, Medial Facetectomies, Foraminotomies Surgeon Osman Bautista MD [employer] Harmeet Silverman PA-C Estimated Blood Loss 100 Findings Consistent with Post-Op Diagnosis
--- NOTE | 2021-03-09 15:36 | Communication Note ---
Date of Service: March 09, 2021 Post-op routine neurological assessment completed Patient awake, alert No new neurological deficits noted Musculoskeletal: 5/5 motor strength bilateral L2-S1. Neurologic: Sensation 2/2 to light touch bilateral L2-S1 except bilateral soles of feet 1/2 (chronic)
[2021-03-09] MEDS ORDERED: ACETAMINOPHEN 1,000 MG/100 ML VIAL IV STA (16:13)
[2021-03-09] MEDS ORDERED: ACETAMINOPHEN 1000 MG/100 ML IV IV ONE (16:14)
--- NOTE | 2021-03-09 16:26 | XRay Report ---
SINGLE VIEW LUMBAR SPINE CLINICAL HISTORY: Intraoperative radiographs. L4-L5 laminectomy. FINDINGS: 7 portable lateral views of the lumbar spine are correlated with radiographs dated 6. Vertebral body height is maintained for the lumbar spine. There is minimal anterolisthesis at L4-L 5. On the initial 3 images a surgical probe projects posteriorly at the L3-L4 disc space. On image #4 this projects posterior to the L4 vertebral body. On image #6 this projects at the L4-L5 disc space. On the 1:07 image the probe is seen at the L5-S1 level. On the final image taken at 1:19 the probe p rojects posterior to the L4-L5 disc space. IMPRESSION: Intraoperative lumbar spine images as above. Electronically signed by: Trung Marques M.D. 03/09/2021 4:25 PM
--- NOTE | 2021-03-09 17:12 | Anesthesiology Progress Note ---
Date of Service March 09, 2021 Anesthesia Post Procedure Vital Signs Vital Signs: Temp Pulse Pulse Resp BP Pulse Ox 03/09/21 17:05 90 19 124/74 95 03/09/21 16:50 87 17 116/66 96 03/09/21 16:35 36.5 C 83 15 117/68 98 03/09/21 16:25 89 17 123/70 97 03/09/21 16:15 88 12 130/79 96 03/09/21 16:05 86 20 116/72 94 03/09/21 15:55 83 15 132/105 H 94 03/09/21 15:45 79 10 L 156/81 H 97 03/09/21 15:35 80 12 131/80 100 03/09/21 15:25 81 16 159/107 H 99 03/09/21 15:18 36.9 C 87 18 131/73 99 03/09/21 10:12 36.6 C 71 18 143/57 H 99 Pain Intensity Lower Back: Pain Intensity: 10 Transfer of Care Handoff Completed per policy Notes Mental Status: alert / awake / arousable and participated in evaluation Patient Amnestic to Procedure: Yes Nausea / Vomiting: adequately controlled Pain: adequately controlled Airway Patency, RR, SpO2: stable & adequate BP & HR: stable & adequate Hydration State: stable & adequate Anesthetic Complications: no major complications apparent and Pt Satisfied with anesthetic care
[2021-03-09] MEDS ORDERED: PROMETHAZINE HCL 12.5 MG in SODIUM CHLORIDE 0.9% 50 ML IV PRN (17:38)
[2021-03-09] MEDS ORDERED: ACETAMINOPHEN 1,000 MG/100 ML VIAL IV PRN (17:38)
[2021-03-09] MEDS ORDERED: NALOXONE HCL 0.4 MG/1 ML VIAL/CARP IV PRN (17:38)
[2021-03-09] MEDS ORDERED: LORazepam 0.5 MG/1 ML VIAL IV PRN (17:38)
[2021-03-09] MEDS ORDERED: DO NOT ADMINISTER PNEUMOCOCCAL VACCINE PRN (17:38)
[2021-03-09] MEDS ORDERED: MAGNESIUM HYDROXIDE SUSP 30 ML UDC PO PRN (17:38)
[2021-03-09] MEDS ORDERED: bisacodyL 10 MG SUPP PR PRN (17:38)
[2021-03-09] MEDS ORDERED: METOCLOPRAMIDE HCL INJ 5 MG/ML 2 ML VIAL IV PRN (17:38)
[2021-03-09] MEDS ORDERED: SOD PHOSPHATE/SOD BIPHOSPHATE ENEMA 132 ML BTL PR PRN (17:38)
[2021-03-09] MEDS ORDERED: ONDANSETRON 4 MG OD TAB PO PRN (17:38)
[2021-03-09] MEDS ORDERED: hydrOXYzine HCl 25 MG TAB PO PRN (17:38)
[2021-03-09] MEDS ORDERED: HYDROmorphone INJ 0.5 MG/0.5 ML SYR IV PRN (17:38)
[2021-03-09] MEDS ORDERED: DO NOT ADMINISTER FLU VACCINE PRN (17:38)
[2021-03-09] MEDS ORDERED: diphenhydrAMINE Capsule 25 MG CAP PO PRN (17:38)
[2021-03-09] MEDS ORDERED: FAMOTIDINE 20 MG TAB PO PRN (17:38)
[2021-03-09] MEDS ORDERED: ALUMINUM/MAGNESIUM SUSP 30 ML UDC PO PRN (17:38)
[2021-03-09] MEDS ORDERED: ACETAMINOPHEN 500 MG TAB PO PRN (17:38)
[2021-03-09] MEDS ORDERED: MAGNESIUM OXIDE 400 MG TAB PO PRN (17:38)
[2021-03-09] MEDS ORDERED: LORazepam 0.5 MG TAB PO PRN ×2 (17:38)
[2021-03-09] MEDS ORDERED: LACTATED RINGER'S 1,000 ML IV SCH (18:00)
--- NOTE | 2021-03-09 18:06 | Consultation ---
Date of Consultation March 09, 2021 Assessment & Plan (1) Neurogenic claudication due to lumbar spinal stenosis: s/p L4-L5 Bilateral Lumbar Laminectomy, Medial Facetectomies, Foraminotomies by Dr Bautista today. Resting comfortably in the immediate post-op period. Pt on home CPAP. She was quite sleepy and I recommended to staff to place the CPAP on soon. Defer IVF, pain meds, dispo to orthopedics. (2) Hypertension: would hold HCTZ, bumex, JAIRO until creatinine is rechecked in AM and also to follow her BPs overnight. If Cr stable in am, and if BPs merit, can resume 1 or more of the above. (3) Obesity, morbid, BMI 40.0-49.9: BMI 47 (4) Rheumatoid arthritis: on chronic prednisone & plaquenil 200 BID follows with rheum in [place] received stress dose of decadron today would consider 1-2 more days of stress dosing (perhaps pred 30mg tomorrow, then 15mg the next day, then back to 5mg after that) will d/w ortho (5) Hypokalemia: on pre-op labs repeat BMP with mag in am 2nd to double diuretics usage at home (6) Moderate obstructive sleep apnea: home CPAP (7) Diastolic dysfunction: compensated on exam hold diuretics tonight likely resume tomorrow pending labs and recheck of exam (8) Long-term use of hydroxychloroquine: 2nd RA Appreciate this consult. Will follow with you. History of Present Illness Requesting Physician: Osman Bautista MD Reason for Consultation: post-op medical management Attending Physician: Osman Bautista MD History of Present Illness 70yo female with long-standing, steroid-dependent RA, HTN, morbid obesity, GERMAN, and left-sided breast cancer who presented today for elective lumbar laminectomy by Dr Osman Bautista. Patient states that she has had escalating lumbar back pain for some time along with worsening bilateral radicular pain and numbness. I saw the patient post-op on the orthopedic floor and she was resting comfortably. She denied any chest pain, dyspnea, abd pain, nausea, or vomiting. She reports that she brought her home CPAP unit with her. She lives alone in [facility] but doesn't want to go to acute inpatient rehab post-discharge. Allergies Allergy/AdvReac Type Severity Reaction Status Date / Time No Known Allergies Allergy Verified 03/09/21 09:52 Home Medications Medication Instructions Recorded Confirmed Type cholecalciferol (vitamin D3) 125 5,000 unit PO QDL 04/25/18 03/09/21 History mcg (5,000 unit) capsule multivitamin with minerals 1 tab PO QDL tab 02/12/19 03/09/21 History hydroxychloroquine 200 mg tablet 200 mg PO BID 09/05/19 03/09/21 History (Plaquenil) olmesartan 20 1 tab PO QAM 07/12/20 03/09/21 History mg-hydrochlorothiazide 12.5 mg tablet omeprazole 20 mg tablet,delayed 20 mg PO QAM 07/12/20 03/09/21 History release prednisone 5 mg tablet 5 mg PO QAM 07/12/20 03/09/21 History Lift chair #1 ea 08/22/20 03/03/21 Rx magnesium oxide 400 mg PO DAILY PRN 10/27/20 03/09/21 History duloxetine 60 mg capsule,delayed 60 mg PO QAM cap 11/27/20 03/09/21 History release sprinkle potassium chloride 10 mEq 10 meq PO QAM #30 tab 12/02/20 03/09/21 Rx tablet,extended release (Klor-Con) bumetanide 2 mg tablet 2 mg PO QAM #90 tab 02/10/21 03/09/21 Rx lorazepam 0.5 mg tablet 0.5 mg PO BID PRN #60 tab 02/23/21 03/09/21 Rx celecoxib 200 mg capsule (Celebrex) 200 mg PO QPM 02/25/21 03/09/21 History gabapentin 300 mg capsule 300 mg PO BID #28 cap 03/10/21 Rx tramadol 50 mg tablet 50 - 100 mg PO Q4H PRN #40 tab 03/10/21 Rx Patient History Medical History Claudication of both lower extremities Depression GERD (gastroesophageal reflux disease) controlled Hiatal hernia Hyperlipidemia Hypertension Inflammatory polyarthritis Malignant neoplasm of upper-inner quadrant of left breast in female, estrogen receptor negative (04/24/19) 2019- s/p chemo and XRT/lumpectomy and SN biopsy Last heme note 01/2021- pt under observation- has port flushed q 6 weeks Nocturnal hypoxemia Obesity, morbid, BMI 40.0-49.9 Rheumatoid arthritis on Plaquenil/prednisone 5mg daily chronic (mostly affects spine/hip/knee locations, no cervical issues) Sleep apnea CPAP Spinal stenosis, lumbar region with neurogenic claudication Surgical History Difficult airway for intubation WITH BREAST SURGERY 05/2019 [facility] History of cholecystectomy History of colonoscopy History of esophagogastroduodenoscopy (EGD) History of lumpectomy of left breast partial History of open reduction and internal fixation (ORIF) procedure right wrist History of tonsillectomy and adenoidectomy History of total abdominal hysterectomy and bilateral salpingo-oophorectomy History of total hip arthroplasty RIGHT 10/2020 History of vascular access device present right chest Status post right foot surgery Family History Mother , age 77 CHF Family history of diabetes mellitus Hypertension Family history of cardiac disorder Diabetes type 2 Deep vein thrombosis Brother , age 49 colon cancer Family hx of colon cancer Colorectal cancer Grandfather Family hx of colon cancer PATERNAL Father , age 60 cardiac arrest Family history of cardiac disorder Myocardial infarction Sister Family history of malignant neoplasm Breast cancer, Onset Age: 50 Son Allergic rhinitis Coronary heart disease Son No problems noted. Denies family history of Ovarian cancer Social History (Updated 03/09/21 @ 21:15 by Dhaval Ballard) Smoking Status: Never smoker Second Hand Exposure: Yes (FATHER SMOKED); Do You Dip or Chew Tobacco: No; Hx Alcohol Use: Yes Alcohol type: wine Hx Substance Use: Yes Preferred Language: Slovak Communication Ability: Effective Hearing Ability: Normal Crisis Nurse Required: No Beliefs That Will Affect Care: None marital status: / Current Living Situation: Alone Current Living Situation Comment: Lives alone at home. 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 [employer] Other Information That Helps Us Care for You: No Feels Safe at Home: Yes Safety Concerns: Feels Safe At This Time Childhood Exposure to Second-Hand Smoke: Yes Diet Comment: low sodium caffeine: Yes during the past year weight has: other Dental Care, Regularly: Yes Physical Activity Frequency: 1-2 Times per Week Seatbelt Use: always Sunscreen Use: Yes Assistive Devices: Walker Review of Systems Constitutional: no fever, no chills, no fatigue, no anorexia, no weight loss and no weight gain Eyes: no worsening vision Ear, Nose, Mouth, Throat: no sore throat and no dysphagia Respiratory: + dyspnea on exertion (chronic, worsening over time ); no cough Cardiovascular: no chest pain, no dyspnea at rest, no orthopnea and no edema Gastrointestinal: no abdominal pain, no nausea, no vomiting and no diarrhea/loose stools Genitourinary: no dysuria Musculoskeletal: + back pain Integumentary: no rash Neurologic: + paresthesia (legs b/l ) Psychiatric: no depression Endocrine: denies diabetes Hematologic / Lymphatic: no easy bruising Physical Exam Physical Exam: Gen: sleepy but arouses easily, oriented x 3 Eyes: PERRL HENT: MMM Neck: no thyroidmegaly, no JVD Heart: RRR, s1 s2, 1/6 GUILLERMINA LSB Lungs: CTA b/l Abd: minimally distended, BS+, NT, no HSM Ext: SCDs in place, trace LE edema, pulses 2+ b/l Skin: no rash Neuro: strength 5/5 x 4 exts, upper extremity DTRs 1-2+ b/l Psych: a/o x 3 Results & Data ([facility]) Vital Signs (Past 12 Hours) Vital Signs Temp Pulse Pulse Resp BP Pulse Ox 03/09/21 17:47 85 16 125/78 97 03/09/21 17:15 36.4 C L 18 116/74 99 03/09/21 17:05 90 19 124/74 95 03/09/21 16:50 87 17 116/66 96 03/09/21 16:35 36.5 C 83 15 117/68 98 03/09/21 16:25 89 17 123/70 97 03/09/21 16:15 88 12 130/79 96 03/09/21 16:05 86 20 116/72 94 03/09/21 15:55 83 15 132/105 H 94 03/09/21 15:45 79 10 L 156/81 H 97 03/09/21 15:35 80 12 131/80 100 03/09/21 15:25 81 16 159/107 H 99 03/09/21 15:18 36.9 C 87 18 131/73 99 03/09/21 10:12 36.6 C 71 18 143/57 H 99 Laboratory Results Labs 03/09/21 03/09/21 03/09/21 09:49 09:49 18:07 POC Glucose 129 H COVID-19 Eval [facility] SARS-CoV-2, RNA, NAAT NEGATIVE pre-op labs notable for minimally depressed potassium level Diagnostic Findings Echo 09/2019 per records - nl EF, nl valve function EKG - 09/2020 - NSR, no ST Changes PG Care Time/CCT Total # of Minutes Spent Total Time Spent with Patient: Total time spent is greater than 50% in coordination of care (as documented) at patient's floor/unit and/or counseling patient: Coding Level of Care Code 54080 Subseq Hosp Care Lvl 3 Diagnoses Neurogenic claudication due to lumbar spinal stenosis M48.062 Hypertension I10 Obesity, morbid, BMI 40.0-49.9 E66.01 Rheumatoid arthritis M06.9 Hypokalemia E87.6 Moderate obstructive sleep apnea G47.33 Diastolic dysfunction I51.89 Long-term use of hydroxychloroquine Z79.899
[2021-03-09] MEDS: traMADol HCL 50 MG TABLET PO PRN ×2 (18:15→23:25)
[2021-03-09] MEDS ORDERED: COUGH DROP (SUGAR FREE) LOZ 24 LOZ/1 BOX BUCCAL ONE (19:26)
[2021-03-09] MEDS: ceFAZolin 2000MG 2,000 MG/15 ML SYR IV SCH (19:28)
[2021-03-09] MEDS: HYDROXYCHLOROQUINE SULFATE 200 MG TAB PO SCH (20:19)
[2021-03-09] MEDS: GABAPENTIN 300 MG CAP PO SCH (20:19)
[2021-03-09] MEDS: CeleBREX 200 MG CAP PO SCH (20:19)
[2021-03-09] MEDS: DOCUSATE SODIUM/SENNA 50/8.6MG TAB PO SCH (20:19)
[2021-03-09] MEDS: CYCLOBENZAPRINE HCL 10 MG TAB PO SCH (21:20)
[2021-03-10] MEDS: HEPARIN 100 UNIT/ML 5ML FLUSH FLUSH PRN ×2 (03:28→05:57)
[2021-03-10] MEDS: ceFAZolin 2000MG 2,000 MG/15 ML SYR IV SCH (03:28)
[2021-03-10] MEDS: traMADol HCL 50 MG TABLET PO PRN ×4 (03:28→21:31)
[2021-03-10] MEDS: POLYETHYLENE (MIRALAX) 17 GM PACK PO SCH ×3 (05:37→17:29)
[2021-03-10] MEDS: CYCLOBENZAPRINE HCL 10 MG TAB PO SCH ×3 (05:37→21:31)
[2021-03-10 06:21] LABS: Hematocrit (blood only) 34.2 % (37-47); Hemoglobin 11.4 g/dL (12.0-16.0); Immature Granulocytes # (auto) 0.01 K/uL (0.00-0.02); Immature Granulocytes % (auto) 0.1 %; Lymphocytes # (auto) 0.47 K/uL (1.2-3.4); Lymphocytes % (auto) 5.6 %; Mean Corpuscular Hemoglobin 31.1 pg (25-34); Mean Corpuscular Hgb Conc 33.3 g/dL (32-36); Mean Corpuscular Volume 93.2 fL (80-100); Mean Platelet Volume 8.3 fL (7.4-10.4); Monocytes # (auto) 0.48 K/uL (0.11-0.59); Monocytes % (auto) 5.7 %; Neutrophils # (auto) 7.48 K/uL (1.4-6.5); Neutrophils % (auto) 88.6 %; Platelet Count 259 K/uL (130-400); RDW Coefficient of Variation 12.7 % (11.5-14.5); Red Blood Count 3.67 M/uL (4.2-5.4); White Blood Count 8.44 K/uL (4.8-10.8)
[2021-03-10 06:55] LABS: BUN Creatinine Ratio 22.5 (10-20); Calcium 8.5 mg/dl (8.5-10.1); Creatinine Clr Calc Pharmacy 72.6 ml/min; Est GFR (African American) 79.3 ml/min; Est GFR (Non-African American) 68.5 ml/min; Magnesium 2.6 mg/dl (1.8-2.4); Potassium 3.8 mmol/L (3.5-5.1)
--- NOTE | 2021-03-10 08:15 | Orthopedic Progress Note ---
Date of Service March 10, 2021 Assessment & Plan (1) Status post spinal surgery: Plan: mobility with PT today likely d/c tomorrow AM Admission and Anticipated Discharge Date Admission Date: March 09, 2021 Subjective pain well controlled no new numbness/weakness some mobilizing out of bed yesterday Hgb 11.4 this AM Glucose 125 this AM Physical Exam Physical Exam: vitals: see vital signs section; on home CPAP overnight, RA this AM dressing: clean, dry intact drain: N/A vascular: no calf tenderness or swelling bilaterally. no signs of DVT Musculoskeletal: 5/5 motor strength bilateral L2-S1. Neurologic: Sensation 2/2 to light touch bilateral L2-S1 except bilateral soles of feet 1/2 (chronic) Results & Data ([facility]) Vital Signs (Past 12 Hours) Vital Signs Temp Pulse Pulse Resp BP Pulse Ox 03/10/21 08:06 36.5 C 78 18 134/82 97 03/10/21 03:04 36.4 C L 87 16 108/70 93 03/09/21 23:19 36.5 C 93 H 16 116/68 95 03/09/21 20:25 36.2 C L 91 H 16 129/77 93 Diagnostic Findings post-op x-rays pending PG Care Time/CCT Total # of Minutes Spent Total Time Spent with Patient: Total time spent is greater than 50% in coordination of care (as documented) at patient's floor/unit and/or counseling patient: Coding Level of Care Code None Diagnoses Status post spinal surgery Z98.890
[2021-03-10] MEDS: DULoxetine HCL 60 MG CAP PO SCH (08:35)
[2021-03-10] MEDS: GABAPENTIN 300 MG CAP PO SCH ×2 (08:35→21:32)
[2021-03-10] MEDS: HYDROXYCHLOROQUINE SULFATE 200 MG TAB PO SCH ×2 (08:35→21:31)
[2021-03-10] MEDS: predniSONE 5 MG TAB PO SCH (08:35)
[2021-03-10] MEDS: PANTOprazole 40 MG TAB PO SCH (08:36)
[2021-03-10] MEDS: POTASSIUM CHLORIDE 10 MEQ TABCR PO SCH (08:36)
[2021-03-10] MEDS ORDERED: OLMESARTAN MEDOXOMIL 20 MG TAB PO SCH (09:00)
[2021-03-10] MEDS ORDERED: hydroCHLOROthiazide 25 MG TAB PO SCH (09:00)
[2021-03-10] MEDS ORDERED: BUMETANIDE 1 MG TAB PO SCH (09:00)
[2021-03-10] MEDS ORDERED: BUMETANIDE 1 MG TAB PO ONE (11:08)
[2021-03-10] MEDS ORDERED: predniSONE 20 MG TAB PO STA (11:08)
[2021-03-10] MEDS: CEROVITE ADV FORMULA TAB PO SCH (11:58)
[2021-03-10] MEDS: CHOLECALCIFEROL 1,000 UNITS 25 MCG TAB PO SCH (11:58)
--- NOTE | 2021-03-10 13:42 | Anesthesiology Progress Note ---
Date of Service March 10, 2021 Anesthesia Post Procedure Vital Signs Vital Signs: Temp Pulse Pulse Pulse Resp BP Pulse Ox 03/10/21 11:33 36.6 C 80 17 103/66 92 03/10/21 10:27 94 03/10/21 08:06 36.5 C 78 18 134/82 97 03/10/21 03:04 36.4 C L 87 16 108/70 93 03/09/21 23:19 36.5 C 93 H 16 116/68 95 03/09/21 20:25 36.2 C L 91 H 16 129/77 93 03/09/21 19:16 36.4 C L 92 H 16 118/71 97 03/09/21 18:20 87 16 126/76 100 03/09/21 17:47 85 16 125/78 97 03/09/21 17:15 36.4 C L 18 116/74 99 03/09/21 17:05 90 19 124/74 95 03/09/21 16:50 87 17 116/66 96 03/09/21 16:35 36.5 C 83 15 117/68 98 03/09/21 16:25 89 17 123/70 97 03/09/21 16:15 88 12 130/79 96 03/09/21 16:05 86 20 116/72 94 03/09/21 15:55 83 15 132/105 H 94 03/09/21 15:45 79 10 L 156/81 H 97 03/09/21 15:35 80 12 131/80 100 03/09/21 15:25 81 16 159/107 H 99 03/09/21 15:18 36.9 C 87 18 131/73 99 Pain Intensity Lower Back: Pain Intensity: 0 Notes Mental Status: alert / awake / arousable Patient Amnestic to Procedure: Yes Nausea / Vomiting: adequately controlled Pain: adequately controlled Airway Patency, RR, SpO2: stable & adequate BP & HR: stable & adequate Hydration State: stable & adequate Anesthetic Complications: no major complications apparent Notes: patient had a couple times when eating fish that it felt like it got stuck part way down then cleared with water - did not feel like she was choking on it so sounds like it was in her esophagus - she has a history of difficult intubation but that went smoothly and she woke up well afterward so she may have some irritation from the endotracheal tube making swallowing feel funny but wouldn't expect it to cause this. I told her to be careful for a couple days and really chew her food well and if it continues to let us know as she may need to be seen by GI if its getting stuck in her esophagus. Otherwise she looks and feels well.
[2021-03-10] MEDS: CeleBREX 200 MG CAP PO SCH (21:32)
[2021-03-10] MEDS: DOCUSATE SODIUM/SENNA 50/8.6MG TAB PO SCH (21:32)
--- NOTE | 2021-03-10 21:50 | Hospitalist Progress Note ---
Date of Service March 10, 2021 Assessment & Plan (1) Neurogenic claudication due to lumbar spinal stenosis: Plan: POD #1 - s/p L4-L5 Bilateral Lumbar Laminectomy, Medial Facetectomies, Foraminotomies by Dr Bautista From surgical standpoint is stable defer pain meds, dispo to ortho will give small amount of stress dose steroids today and tomorrow (20mg extra prednisone today; 10mg extra prednisone tomorrow) (2) Hypertension: Plan: cont to hold HCTZ and JAIRO even with holding these her BPs are acceptable can resume bumex 2mg daily follow BMP in am (3) Obesity, morbid, BMI 40.0-49.9: Plan: BMI 47 (4) Rheumatoid arthritis: Plan: on chronic prednisone & plaquenil 200 BID follows with rheum in [place] received stress dose of decadron day of surgery corresponded with Dr Bautista - he is ok w/ additional stress doses - give 20mg prednisone extra today, and 10mg extra tomorrow then on 03/12 resume normal dose of 5mg/day no RA flare at this time (5) Hypokalemia: Plan: on pre-op labs BMP/mag today wnl (6) Moderate obstructive sleep apnea: Plan: home CPAP (7) Diastolic dysfunction: Plan: remains compensated on exam resume bumex today (8) Long-term use of hydroxychloroquine: Plan: 2nd RA (9) Chronic dyspnea: Plan: will advise pulmonary f/u post-discharge could have rheumatoid lung from long-standing RA could have ischemia could have restrictive lung disease from obesity etc Plan: will cont to follow Admission and Anticipated Discharge Date Admission Date: March 09, 2021 Subjective patient sitting in chair by window reports overall pain control as fair-good mostly when she moves - but tolerable denies dyspnea at rest has had chronic SANDERS for some time this latter issue has been worsening no cp no abd pain, nausea, emesis passing flatus using incentive spirometry Review of Systems Review of Systems: gen - no fevers; no chills cv - no chest pain pulm - no cough or wheezing Physical Exam Physical Exam: Gen: NAD, sitting in chair HENT: MMM Neck: no JVD Heart: RRR, s1 s2, 1/6 GUILLERMINA LSB Lungs: CTA b/l Abd: soft, BS+, NT, no HSM Ext: pulses 2+ b/l Skin: dressings intact lumbar spine region Psych: a/o x 3 Results & Data Results & Data ([facility]) Vital Signs (Past 12 Hours) Vital Signs Temp Pulse Resp BP Pulse Ox 03/10/21 14:13 37.1 C 79 17 108/73 94 03/10/21 11:33 36.6 C 80 17 103/66 92 03/10/21 10:27 94 Laboratory Results Laboratory Results - last 24 hr 03/09/21 03/10/21 03/10/21 23:24 05:48 05:55 WBC 8.44 RBC 3.67 L Hgb 11.4 L Hct 34.2 L MCV 93.2 MCH 31.1 MCHC 33.3 RDW Std Deviation 43.0 RDW Coeff of [place] 12.7 Plt Count 259 MPV 8.3 Immature Gran % (Auto) 0.1 Neut % (Auto) 88.6 Lymph % (Auto) 5.6 [place] % (Auto) 5.7 Eos % (Auto) 0.0 Baso % (Auto) 0.0 Neut # (Auto) 7.48 H Lymph # (Auto) 0.47 L [place] # (Auto) 0.48 Eos # (Auto) 0.00 Baso # (Auto) 0.00 Immature Gran # (Auto) 0.01 Sodium Potassium Chloride Carbon Dioxide Anion Gap BUN Creatinine Est Cr Clr Drug Dosing Est GFR ( Amer) Est GFR (Non-Af Amer) BUN/Creatinine Ratio Glucose POC Glucose 120 H 117 H Calcium Magnesium 03/10/21 03/10/21 03/10/21 05:55 11:37 17:35 WBC RBC Hgb Hct MCV MCH MCHC RDW Std Deviation RDW Coeff of [place] Plt Count MPV Immature Gran % (Auto) Neut % (Auto) Lymph % (Auto) [place] % (Auto) Eos % (Auto) Baso % (Auto) Neut # (Auto) Lymph # (Auto) [place] # (Auto) Eos # (Auto) Baso # (Auto) Immature Gran # (Auto) Sodium 136 Potassium 3.8 Chloride 103 Carbon Dioxide 29 Anion Gap 4.0 BUN 19 H Creatinine 0.85 Est Cr Clr Drug Dosing 72.6 Est GFR ( Amer) 79.3 Est GFR (Non-Af Amer) 68.5 BUN/Creatinine Ratio 22.5 H Glucose 125 H POC Glucose 112 H 136 H Calcium 8.5 Magnesium 2.6 H PG Care Time/CCT Total # of Minutes Spent Total Time Spent with Patient: Total time spent is greater than 50% in coordination of care (as documented) at patient's floor/unit and/or counseling patient: Coding Level of Care Code 10680 Subseq Hosp Care Lvl 2 Diagnoses Neurogenic claudication due to lumbar spinal stenosis M48.062 Hypertension I10 Obesity, morbid, BMI 40.0-49.9 E66.01 Rheumatoid arthritis M06.9 Hypokalemia E87.6 Moderate obstructive sleep apnea G47.33 Diastolic dysfunction I51.89 Long-term use of hydroxychloroquine Z79.899 Chronic dyspnea R06.09
[2021-03-11] MEDS: POLYETHYLENE (MIRALAX) 17 GM PACK PO SCH ×4 (00:08→17:07)
[2021-03-11] MEDS: CYCLOBENZAPRINE HCL 10 MG TAB PO SCH ×3 (05:40→22:12)
[2021-03-11] MEDS: HEPARIN 100 UNIT/ML 5ML FLUSH FLUSH PRN (05:58)
--- NOTE | 2021-03-11 06:34 | Orthopedic Progress Note ---
Date of Service March 11, 2021 Assessment & Plan (1) Status post spinal surgery: Plan: await clearance from hospitalist d/c home once cleared by hospitalist, possibly tomorrow AM Admission and Anticipated Discharge Date Admission Date: March 09, 2021 Subjective pain well controlled no new numbness/weakness cleared by PT for mobility and d/c home hospitalist following, on post-op steroid stress dose with BP medications adjusted Physical Exam Physical Exam: vitals: see vital signs section; on home CPAP overnight, RA this AM dressing: clean, dry intact drain: N/A vascular: no calf tenderness or swelling bilaterally. no signs of DVT Musculoskeletal: 5/5 motor strength bilateral L2-S1. Neurologic: Sensation 2/2 to light touch bilateral L2-S1 except bilateral soles of feet 1/2 (chronic) Results & Data ([facility]) Vital Signs (Past 12 Hours) Vital Signs Temp Pulse Pulse Resp BP Pulse Ox 03/11/21 06:25 36.5 C 75 20 134/75 95 03/10/21 22:15 36.5 C 75 16 92/57 L 94 PG Care Time/CCT Total # of Minutes Spent Total Time Spent with Patient: Total time spent is greater than 50% in coordination of care (as documented) at patient's floor/unit and/or counseling patient: Coding Level of Care Code None Diagnoses Status post spinal surgery Z98.890
[2021-03-11 07:01] LABS: BUN Creatinine Ratio 25.6 (10-20); Calcium 8.4 mg/dl (8.5-10.1); Creatinine Clr Calc Pharmacy 66.4 ml/min; Est GFR (African American) 71.2 ml/min; Est GFR (Non-African American) 61.4 ml/min; Potassium 3.9 mmol/L (3.5-5.1)
[2021-03-11] MEDS ORDERED: predniSONE 10 MG TABLET PO STA (08:07)
[2021-03-11] MEDS: PANTOprazole 40 MG TAB PO SCH (08:44)
[2021-03-11] MEDS: POTASSIUM CHLORIDE 10 MEQ TABCR PO SCH (08:44)
[2021-03-11] MEDS: HYDROXYCHLOROQUINE SULFATE 200 MG TAB PO SCH ×2 (08:44→22:12)
[2021-03-11] MEDS: GABAPENTIN 300 MG CAP PO SCH ×2 (08:44→22:12)
[2021-03-11] MEDS: predniSONE 5 MG TAB PO SCH (08:44)
[2021-03-11] MEDS: DULoxetine HCL 60 MG CAP PO SCH (08:44)
[2021-03-11] MEDS: traMADol HCL 50 MG TABLET PO PRN (08:49)
[2021-03-11] MEDS: CHOLECALCIFEROL 1,000 UNITS 25 MCG TAB PO SCH (11:54)
[2021-03-11] MEDS: CEROVITE ADV FORMULA TAB PO SCH (11:54)
--- NOTE | 2021-03-11 22:11 | Hospitalist Progress Note ---
Date of Service March 11, 2021 Assessment & Plan (1) Neurogenic claudication due to lumbar spinal stenosis: Plan: POD #2 - s/p L4-L5 Bilateral Lumbar Laminectomy, Medial Facetectomies, Foraminotomies by Dr Bautista From surgical standpoint is stable 10mg of additional prednisone today for stress purposes, then resume 5mg daily (2) Hypertension: Plan: cont to hold HCTZ and JAIRO even with holding these her BPs remain acceptable cont bumex bmp stable (3) Obesity, morbid, BMI 40.0-49.9: Plan: BMI 47 (4) Rheumatoid arthritis: Plan: on chronic prednisone & plaquenil 200 BID follows with rheum in [place] received stress dose of decadron day of surgery corresponded with Dr Bautista - he is ok w/ additional stress doses - gave 20mg prednisone extra yesterday, and 10mg extra today then 03/12 resume normal dose of 5mg/day no RA flare at this time (5) Hypokalemia: Plan: on pre-op labs K normal during the stay (6) Moderate obstructive sleep apnea: Plan: home CPAP (7) Diastolic dysfunction: Plan: remains compensated on exam cont bumex (8) Long-term use of hydroxychloroquine: Plan: 2nd RA (9) Chronic dyspnea: Plan: could have rheumatoid lung from long-standing RA could have ischemia could have restrictive lung disease from obesity etc I asked payroll secretary to set up pulmonary referral for this Plan: corresponded with Dr Bautista - to d/c home tomorrow Admission and Anticipated Discharge Date Admission Date: March 09, 2021 Subjective patient overall feels well no major complaints passing flatus, no stool no abd pain, cp SANDERS is at baseline nervous about d/c home - won't have help until tomorrow Review of Systems Review of Systems: gen - no weakness or fatigue; good appetite today CV - no chest pain pulm - no cough GI - no pain Physical Exam Physical Exam: Gen: NAD, sitting in chair comfortably, was ambulating in the room just prior to me coming in HENT: MMM Neck: no JVD Heart: RRR, s1 s2, 1/6 GUILLERMINA LSB Lungs: CTA b/l Abd: soft, BS+, NT, no HSM Ext: pulses 2+ b/l Psych: a/o x 3 Results & Data Results & Data ([facility]) Vital Signs (Past 12 Hours) Vital Signs Temp Pulse Resp BP Pulse Ox 03/11/21 22:09 36.7 C 76 16 134/84 92 03/11/21 14:59 36.6 C 80 18 111/68 95 Laboratory Results Laboratory Results - last 24 hr 03/10/21 03/11/21 03/11/21 23:52 05:41 05:58 Sodium 134 L Potassium 3.9 Chloride 103 Carbon Dioxide 30 Anion Gap 1.0 L BUN 24 H Creatinine 0.93 Est Cr Clr Drug Dosing 66.4 Est GFR ( Amer) 71.2 Est GFR (Non-Af Amer) 61.4 BUN/Creatinine Ratio 25.6 H Glucose 102 H POC Glucose 122 H 103 H Calcium 8.4 L 03/11/21 03/11/21 12:11 17:28 Sodium Potassium Chloride Carbon Dioxide Anion Gap BUN Creatinine Est Cr Clr Drug Dosing Est GFR ( Amer) Est GFR (Non-Af Amer) BUN/Creatinine Ratio Glucose POC Glucose 106 H 127 H Calcium PG Care Time/CCT Total # of Minutes Spent Total Time Spent with Patient: Total time spent is greater than 50% in co ordination of care (as documented) at patient's floor/unit and/or counseling patient: Coding Level of Care Code 86974 Subseq Hosp Care Lvl 2 Diagnoses Neurogenic claudication due to lumbar spinal stenosis M48.062 Hypertension I10 Obesity, morbid, BMI 40.0-49.9 E66.01 Rheumatoid arthritis M06.9 Hypokalemia E87.6 Moderate obstructive sleep apnea G47.33 Diastolic dysfunction I51.89 Long-term use of hydroxychloroquine Z79.899 Chronic dyspnea R06.09
[2021-03-11] MEDS: CeleBREX 200 MG CAP PO SCH (22:12)
[2021-03-11] MEDS: DOCUSATE SODIUM/SENNA 50/8.6MG TAB PO SCH (22:12)
--- NOTE | 2021-03-12 05:58 | Discharge Summary ---
Date of Service March 12, 2021 Principal Diagnosis neurogenic claudication Discharge Data Allergies Allergy/AdvReac Type Severity Reaction Status Date / Time No Known Allergies Allergy Verified 03/09/21 09:52 Consultations 03/09/21 17:38 Consult Hospitalist Routine 03/10/21 13:01 Consult Anesthesiology Routine Procedures Performed Operation Date: 03/09/21 11:20 Actual Procedures p L4-L5 Bilateral Lumbar Laminectomy, Medial Facetectomies, Foraminotomies - Osman Bautista MD Hospital Course (1) Status post spinal surgery: Patient underwent the above mentioned procedure. There were no compli cations noted intra-op. Post-operatively, patient was sent to recovery and then floor. Pain was well-controlled throughout stay. Patient was followed closely by hospitalist service throughout stay and was cleared for discharge medically by this team. She received steroid stress dosing post-op due to chronic steroid use. Her blood pressure medications were held and are to be reassessed by PCP in outpatient follow-up. She was referred by the hospitalist service to bar catcher for management of chronic dyspnea. Patient was able to ambulate, void, and tolerate PO intake at time of discharge. Verbal discharge and follow- up instructions were given. Total Time Total Time Spent Total Time Spent (In Minutes): 25 Discharge Plan Discharge Items Patient Disposition: Home - Self-Care Reason For Visit: Neurogenic Claudication Discharge Diagnosis: Neuogenic Claudication Activity: Per Instructions section Non-emergency contact: Surgeon Call non-emergency contact if: you have any medication questions [facility] - 04/28/21 12:45 pm (You will be seeing Dr. Espinosa at the [place] location.) Katlin Nix CRNP [Primary Care Provider] - 03/19/21 10:30 am Diet: Regular Addtl Attending Provider Instructions: Posterior Lumbar Decompression, Microlaminectomy or Microdiscectomy Recovery What to expect You've had surgery: the first step toward the goals of decreasing back and leg pain, improving the ability to stand and walk, and stopping symptoms of nerve compression from getting worse. Now it's time to focus on healing. By following these tips, you will set yourself up for a successful outcome after surgery. Top things to know 1. A moderate or increased amount of back pain is expected after surgery. This will get better over the next four to six weeks. 2. Leg pain usually gets better after surgery, but may not be completely gone. Numbness, tingling and weakness take longer to get better after surgery. This is normal. Pain and weakness Back pain and muscle spasms are normal after surgery. These should get better over the next few weeks. Numbness, tingling and weakness that you had before surgery may take time to improve. Taking care of your incision Your incision may bleed and your dressing may get saturated with blood. This is normal. Change your dressing as often as needed to keep the incision clean and dry. If your incision has no bleeding or drainage, you can take your dressing off one to two days after surgery, but always keep the incision area clean and dry. If you have skin glue or tape on your incision, try to leave it in place for the first two weeks. Showering You can take a shower three days after surgery, once the incision is closed and doesn't have drainage. Let gentle soap and water run over the incision. Do not scrub it. Pat dry with a clean towel. Avoid taking tub baths, swimming and going in hot tubs until the incision is completely healed (tour to six weeks). Taking medication You may take anti-inflammatory medications (NSAIDs) to help relieve pain. NSAIDs include ibuprofen, Advil, Aleve, naproxen, Naprosyn, Mobic, meloxicam, Celebrex and diclofenac. If you have kidney or heart disease, stomach ulcers or you take blood thinners, check with your primary care provider before taking NSAIDs. If you need refills on your prescriptions, you may contact our office at least two days before you are out of pills so we have sufficient time to process your request. Refill requests on Tuesday afternoons and holidays likely will be addressed on the next . Start weaning yourself from pain medications as soon as you are able. Remember, pain is a natural part of the healing process. The goal is not lo eliminate all pain but to keep you comfortable as you heal. Pain medications should be used only for a short period of time. Before taking Tylenol (acetaminophen), be aware that your pain medication probably has acetaminophen in it. Taking additional Tylenol or acetaminophen can put you over the daily recommended 3,000 milligrams, which can harm your liver. If you are taking a muscle relaxant, one of the side effects is drowsiness. If you feel too drowsy to safely get up and move around, take the muscle relaxant less often. Be active, but no lifting We want you to be active as soon as you get home from the hospital. Get up and walk often. If you go up and downstairs, make sure you hold onto the railing and have so meone with you. Avoid excessive bending and twisting, and do not lift anything over 10 pounds until your surgeon says it's OK. And no driving You cannot drive until you are no longer taking narcotic pain medications or muscle relaxants and you can move well enough to be safe behind the wheel. Most patients can begin driving after the 6 week postoperative appointment. Your surgeon will let you know when you can start driving. Eating Ice and Popsicles can help relieve a sore throat. Eat soft foods that are easy to swallow. Take small bites and chew your food well. You can begin eating other foods gradually as you start to feel better. Constipation and bloating Constipation is a common side effect of taking narcotic pain medication and a good reason to begin tapering yourself off of pain medication as soon as you can. Drink lots of fluid, be active, and eat foods high in fiber to help relieve constipation. If constipation is bothering you, a stool softener or laxative may help. Try one of the following, and always follow the instructions: Milk of Magnesia, MiraLAX, Dulcolax, suppository Fleet enema, magnesium citrate. Follow up with your primary care provider If you have any health concerns, see your primary care provider within one week after surgery, especially if you have any of the following: Heart disease or have had a stroke Lung disease Diabetes Are over age 65 Take a blood thinner Take more than 10 prescription medications When is it an emergency? If you have any of the following symptoms call 911 or go to an emergency room right away: Trouble breathing Chest pain Significant new weakness since your surgery If you have any other concern, call our office at [phone] before going to an emergency room. In most cases we can help you or get you an appointment quickly. Pending Studies at Discharge: No Stand-Alone Forms: My [facility] Medications and DC Order Prescriptions: New tramadol 50 mg Tablet 50 - 100 mg PO Q4H PRN (Reason: pain) Qty: 40 RF: 0 gabapentin 300 mg Capsule 300 mg PO BID Qty: 28 RF: 0 Continued hydroxychloroquine [Plaquenil] 200 mg tablet 200 mg PO BID RF: 0 (DME) Lift chair See Rx Instructions .Route .MEDSUPPLY Qty: 1 RF: 0 potassium chloride [Klor-Con 10] 10 mEq tablet extended release 10 meq PO QAM Qty: 30 RF: 11 bumetanide 2 mg tablet 2 mg PO QAM Qty: 90 RF: 1 lorazepam 0.5 mg tablet 0.5 mg PO BID PRN (Reason: Anxiety) Qty: 60 RF: 0 cholecalciferol (vitamin D3) 5,000 unit Capsule 5,000 unit PO QDL RF: 0 multivitamin with minerals tablet 1 tab PO QDL RF: 0 prednisone 5 mg tablet 5 mg PO QAM RF: 0 omeprazole 20 mg tablet,delayed release (DR/EC) 20 mg PO QAM RF: 0 duloxetine 60 mg capsule, delayed rel sprinkle 60 mg PO QAM RF: 0 celecoxib [Celebrex] 200 mg capsule 200 mg PO QPM RF: 0 magnesium oxide 400 mg magnesium Tablet 400 mg PO DAILY PRN (Reason: LEG CRAMPS) RF: 0 Discontinued tramadol 50 mg tablet 50 mg PO Q6H PRN (Reason: pain) Qty: 30 RF: 0 cyclobenzaprine 5 mg tablet 5 mg PO TID PRN (Reason: muscle spasm) Qty: 60 RF: 0 olmesartan-hydrochlorothiazide 20-12.5 mg tablet 1 tab PO QAM RF: 0 oxycodone 5 mg Tablet 5 mg PO Q4H PRN (Reason: pain) Qty: 30 RF: 0 Discharge Orders: Discharge Order (Routine); Ordered 03/12/21 Ordered By: Osman Bautista Admission Data Admit Date/Time: 03/09/21 15:15 Attending Provider: Osman Bautista Admit Provider: Osman Bautista Primary Care Provider: Katlin Nix Other Providers: Kristian López ; Amada Sánchez ; Dhaval Ballard ; Moi Tovar ; Jaleel Lundberg ; John Estrella ; Benja Marmolejo ; Rosie Neumann ; Mily Dewey ; Bo Leon ; Kallie George ; Sara Collins ; Shine Temple. ; Harmeet Jones ; Kendell Iniguez ; Amada Wilkinson ; Luis Leonardo ; Jodie Quintanilla ; Hira Lewis ; Dhaval Minor. ; Charan Agrawal ; Megan Beck ; Abdiel Ware ; Kallie Willson ; Joao Gonzalez ; Mendoza Bond ; Woodrow Harp. Coding Level of Care Code D/C DAY MANAGEMENT <30 MINS Diagnoses Status post spinal surgery Z98.890
[2021-03-12] MEDS: CYCLOBENZAPRINE HCL 10 MG TAB PO SCH (06:31)
[2021-03-12 06:37] VITALS: BP 144/85; TEMP 97.5; O2SAT 95
--- NOTE | 2021-03-12 07:16 | Orthopedic Progress Note ---
Date of Service March 12, 2021 Assessment & Plan (1) Status post spinal surgery: Plan: d/c home today after seen by hospitalist Admission and Anticipated Discharge Date Admission Date: March 09, 2021 Subjective pain well controlled no new numbness/weakness cleared by PT for mobility and d/c home hospitalist following, plans to see this AM prior to discharge home Physical Exam Physical Exam: vitals: see vital signs section; on home CPAP overnight, RA this AM dressing: clean, dry, intact drain: N/A vascular: no calf tenderness or swelling bilaterally. no signs of DVT Musculoskeletal: 5/5 motor strength bilateral L2-S1. Neurologic: Sensation 2/2 to light touch bilateral L2-S1 except bilateral soles of feet 1/2 (chronic) Results & Data ([facility]) Vital Signs (Past 12 Hours) Vital Signs Temp Pulse Resp BP Pulse Ox 03/12/21 06:37 36.4 C L 72 16 144/85 H 95 03/11/21 22:09 36.7 C 76 16 134/84 92 PG Care Time/CCT Total # of Minutes Spent Total Time Spent with Patient: Total time spent is greater than 50% in coordination of care (as documented) at patient's floor/unit and/or counseling patient: Coding Level of Care Code None Diagnoses Status post spinal surgery Z98.890
[2021-03-12] MEDS: GABAPENTIN 300 MG CAP PO SCH (07:26)
[2021-03-12] MEDS: POTASSIUM CHLORIDE 10 MEQ TABCR PO SCH (07:27)
[2021-03-12] MEDS: HYDROXYCHLOROQUINE SULFATE 200 MG TAB PO SCH (07:27)
[2021-03-12] MEDS: DULoxetine HCL 60 MG CAP PO SCH (07:27)
[2021-03-12] MEDS: predniSONE 5 MG TAB PO SCH (07:27)
[2021-03-12] MEDS: PANTOprazole 40 MG TAB PO SCH (07:28)
[2021-03-12] MEDS: traMADol HCL 50 MG TABLET PO PRN (07:32)
--- NOTE | 2021-03-12 08:28 | Hospitalist Progress Note ---
Date of Service March 12, 2021 Assessment & Plan (1) Neurogenic claudication due to lumbar spinal stenosis: Plan: POD #3 - s/p L4-L5 Bilateral Lumbar Laminectomy, Medial Facetectomies, Foraminotomies by Dr Bautista From surgical standpoint is stable From medical standpoint is stable as well Dr Bautista is discharging patient home today; medically is stable for d/c (2) Hypertension: Plan: cont to hold HCTZ and ARB at discharge I recommended she check her BPs at home - she does have a cuff if systolic BPs are consistently >140 then resume the ARB-HCTZ combo pill otherwise continue to hold f/u with PCP within a week for BP check she can continue her bumex as previous previous BMPs have been stable (3) Obesity, morbid, BMI 40.0-49.9: Plan: BMI 47 (4) Rheumatoid arthritis: Plan: on chronic prednisone & plaquenil 200 BID follows with rheum in [place] received stress doses of steroid x 3 days can resume normal, chronic dose of 5mg/day starting today no RA flare at this time (5) Hypokalemia: Plan: on pre-op labs K normal during the stay (6) Moderate obstructive sleep apnea: Plan: home CPAP (7) Diastolic dysfunction: Plan: remains compensated on exam today cont bumex (8) Long-term use of hydroxychloroquine: Plan: 2nd RA (9) Chronic dyspnea: Plan: could have rheumatoid lung from long-standing RA could have ischemia could have restrictive lung disease from obesity etc I asked bilingual secretary to set up pulmonary referral for this - [facility] Plan: Ok to d/c home from medical perspective resume bumex cont to hold olmesartan-HCT check BPs 1-2x's daily at home f/u 1 week PCP has pulmonary consult in April for chronic SANDERS meds for bowel maintenance discussed and written in d/c instructions Admission and Anticipated Discharge Date Admission Date: March 09, 2021 Subjective patient feels well back pain stable/controlled no leg pains SANDERS is at baseline no cough no chest pain no abd pain +flatus eating well anticipates d/c home today Review of Systems Review of Systems: gen - denies fatigue, anorexia, weakness cv - no chest pain pulm - no cough gi - no nausea/emesis Physical Exam Physical Exam: Gen: NAD, sitting in chair comfortably, a/o x 3 HENT: MMM Neck: no JVD Heart: RRR, s1 s2, 1/6 GUILLERMINA LSB Lungs: CTA b/l Abd: soft, BS+, NT, no HSM Ext: pulses 2+ b/l Psych: a/o x 3 Neuro: strength b/l legs 5/5 Results & Data Results & Data ([facility]) Vital Signs (Past 12 Hours) Vital Signs Temp Pulse Resp BP Pulse Ox 03/12/21 06:37 36.4 C L 72 16 144/85 H 95 03/11/21 22:09 36.7 C 76 16 134/84 92 PG Care Time/CCT Total # of Minutes Spent Total Time Spent with Patient: Total time spent is greater than 50% in coordination of care (as documented) at patient's floor/unit and/or counseling patient: Coding Level of Care Code 49965 Subseq Hosp Care Lvl 2 Diagnoses Neurogenic claudication due to lumbar spinal stenosis M48.062 Hypertension I10 Obesity, morbid, BMI 40.0-49.9 E66.01 Rheumatoid arthritis M06.9 Hypokalemia E87.6 Moderate obstructive sleep apnea G47.33 Diastolic dysfunction I51.89 Long-term use of hydroxychloroquine Z79.899 Chronic dyspnea R06.09
[2021-03-12] MEDS: CHOLECALCIFEROL 1,000 UNITS 25 MCG TAB PO SCH (10:37)
[2021-03-12] MEDS: CEROVITE ADV FORMULA TAB PO SCH (10:37)
[2021-03-12 10:58] VITALS: PULSE 75
--- NOTE | 2021-03-15 20:42 | Operative Report ---
PG Post Operative Report Pre & Post Diagnosis Operation Date: 03/09/21 11:20 Pre-Op Diagnosis: Neurogenic claudication with L4-5 grade 1 non-mobile spondylolisthesis with severe central stenosis Post-Op Diagnosis: Neurogenic claudication with L4-5 grade 1 non-mobile spondylolisthesis with severe central stenosis I identified the patient and participated in the time-out.: Yes Procedure 1. Bilateral lumbar laminectomy L4, medial facetectomies and foraminotomies L4-5 Surgeon Osman Bautista MD Skidder Lever Operator Harmeet Silverman PA-C Estimated Blood Loss 100 Findings Consistent with Post-Op Diagnosis Specimens none Description of Procedure Indications: Patient is a 70 year old woman who presented to my clinic on January 27, 2021 with a several year history of neurogenic claudication symptoms with two prior ROSARIO and many month history of non-op management. Her imaging was consistent with a grade 1 non-mobile spondylolisthesis at L4-5 with severe central stenosis. A repeat MRI was completed which confirmed prior diagnosis. A discussion was had with the patient with regards to her elevated BMI and additional risks associated with surgical management with this. We also discussed role of decompression only procedure vs. fusion procedure, and she opted to undergo a decompression only procedure. Informed consent was obtained and patient was booked for above procedure. On day of surgery, patient was identified in pre-op holding area. History and Physical was updated, surgical site was marked, and consent was confirmed. Risks, benefits and alternatives were discussed again and I answered all their questions. Implants: none Drains: none Description of procedure: Patient was brought to the operating room and underwent general anesthesia. SCDs were applied to bilateral legs to reduce risk of DVT. Patient was place prone on a Ad frame. Face, eyes, bony prominences, and peripheral nerves were well protected. The lumbar spine was prepped with alcohol and Chloraprep and draped in standard sterile fashion. A time-out was performed and documented. This included confirmation of administration of prophylactic antibiotics. A spinal needle was inserted and a lateral xray taken to localize the incision. A midline incision was made. The incision was carried through the subcutaneous tissue with cautery. The fascia was incised and subperiosteal dissection carried over the lamina. The Gonzalez retractor was placed. A #4 [place] elevator was positioned under the lamina and a richard was place on the exposed spinous process. Lateral localization xray was taken and once appropriate level was confirmed, the level was marked. A high speed darvin was used to perform a bilate ral laminectomy of L4 caudal end up to the insertion of the ligamentum flavum. An up-angled curette was used to free the ligamentum flavum from its cranial and caudal attachments and it was removed with Kerrison rongeurs. Partial medial facetectomies and foraminotomies were performed using a darvin and Kerrison rongeurs to open up the lateral recess and decompress the traversing and exiting nerve roots. At the conclusion of the decompression, a ball-tipped probe was able to be freely passed into the foramens and through the lateral recesses. The wound was then copiously irrigated. No spinal fluid leaks were identified. The wound was assessed for any sources of bleed and hemostasis was achieved prior to closure. To reduce risk of post-op infection, 1g of vancomycin powder was applied to the deep and superficial layers prior to closure. The wound was closed in layers with #1 Vicryl for fascia, 2-0 Vicryl sutures for subcutaneous superficial closure and 3-0 Stratafix suture for subcuticular superficial closure. Steri-strips and sterile dressings were applied. The patient was then flipped supine, awakened and taken to the recovery room in stable condition. There were no intra-operative complications noted. Sponge and needle counts were correct x2 at the conclusion of the case. I attest to the content of the Intraoperative Record and any orders documented therein. Any exceptions are noted below.
== END 2021-03-12 13:55 | disposition home or self-care (01) | DRG 516 ==
LOC: ASU 09:34 → 3E 15:15
DX: Z68.42 Body mass index [BMI] 45.0-49.9, adult; M05.10 Rheumatoid lung disease with rheumatoid arthritis of unspecified site; Z79.52 Long term (current) use of systemic steroids; Z99.89 Dependence on other enabling machines and devices; K21.9 Gastro-esophageal reflux disease without esophagitis; F32.9 Major depressive disorder, single episode, unspecified; M48.062 Spinal stenosis, lumbar region with neurogenic claudication; J98.4 Other disorders of lung; M06.9 Rheumatoid arthritis, unspecified; E87.6 Hypokalemia; Z77.22 Contact with and (suspected) exposure to environmental tobacco smoke (acute) (chronic); I99.8 Other disorder of circulatory system; I11.9 Hypertensive heart disease without heart failure; M43.16 Spondylolisthesis, lumbar region; Z82.49 Family history of ischemic heart disease and other diseases of the circulatory system; F41.9 Anxiety disorder, unspecified; R06.09 Other forms of dyspnea; T50.2X5A Adverse effect of carbonic-anhydrase inhibitors, benzothiadiazides and other diuretics, initial encounter; G47.33 Obstructive sleep apnea (adult) (pediatric); E66.01 Morbid (severe) obesity due to excess calories; Z79.899 Other long term (current) drug therapy

== ENCOUNTER 2022-03-22 21:22 | Inpatient (IN) ==
[2022-03-22] MEDS ORDERED: fentaNYL citrate 100 MCG/2 ML VIAL ONE (21:23)
[2022-03-22] MEDS ORDERED: ACETAMINOPHEN 1,000 MG/100 ML VIAL IV STA (21:53)
[2022-03-22 22:34] LABS: Basophils # (auto) 0.02 K/uL (0-0.2); Basophils % (auto) 0.3 %; Eosinophils # (auto) 0.15 K/uL (0-0.50); Eosinophils % (auto) 2.6 %; Hematocrit (blood only) 36.2 % (34.1-44.9); Hemoglobin 12.4 g/dl (12.0-16.0); Immature Granulocytes # (auto) 0.01 K/uL (0.00-0.02); Immature Granulocytes % (auto) 0.2 %; Lymphocytes # (auto) 0.79 K/uL (1.2-3.4); Lymphocytes % (auto) 13.5 %; Mean Corpuscular Hemoglobin 31.6 pg (25.0-34.0); Mean Corpuscular Hgb Conc 34.3 g/dL (32.0-36.0); Mean Corpuscular Volume 92.3 fL (80.0-100.0); Mean Platelet Volume 8.6 fL (9.4-12.3); Monocytes # (auto) 0.54 K/uL (0.24-0.82); Monocytes % (auto) 9.2 %; Neutrophils # (auto) 4.35 K/uL (1.4-6.5); Neutrophils % (auto) 74.2 %; Platelet Count 199 K/uL (130-400); RDW Coefficient of Variation 12.5 % (11.5-14.5); RDW Standard Deviation 41.8 fL (36.4-46.3); Red Blood Count 3.92 M/uL (3.93-5.22); White Blood Count 5.86 K/ul (4.8-10.8)
[2022-03-22 22:54] LABS: Alanine Aminotransferase 16 U/L (7-52); Albumin Globulin Ratio 1.3 (0.9-2); Albumin Level 3.9 gm/dl (3.4-5.0); Alkaline Phosphatase 259 U/L (34-104); Anion Gap 10 (3-11); Aspartate Aminotransferase 26 U/L (13-39); BUN Creatinine Ratio 21.5 (10-20); Bilirubin,Total 0.8 mg/dl (0.2-1.0); Blood Urea Nitrogen 23 mg/dl (6-23); Calcium 9.5 mg/dl (8.5-10.1); Carbon Dioxide 31 mmol/L (21-32); Chloride 99 mmol/L (98-107); Est GFR (African American) 59.6 ml/min; Est GFR (Non-African American) 51.5 ml/min; Globulin 2.9 gm/dl (2.5-4.0); Glucose 94 mg/dl (70-99(Fasting)); Potassium 3.4 mmol/L (3.5-5.1); Sodium 140 mmol/L (136-145); Total Protein 6.8 gm/dl (6.0-8.3)
--- NOTE | 2022-03-22 23:05 | Emergency Department Note ---
History of Present Illness General Chief complaint: Back Injury/Pain Stated complaint: back pain Time Seen by Provider: 03/22/22 21:28 History of Present Illness Maximum Pain Intensity: 5 This 71-year-old with a history of back pain presents to the ER complaining of worsening back pain that is radiating down her right leg Location: Low back right leg Quality: Painful Severity: Moderate Duration: Past day Timing: Started yesterday Context: Patient could not tolerate the pain and came here Modifying factors: better with rest; worse with activity Patient denies loss of bowel or bladder control, saddle esthesia, fever, chills, IV drug abuse, leg weakness. Patient states this feels worse than her normal back pain. She lives at home by herself. Home Medications Medication Instructions Recorded Confirmed Type cholecalciferol (vitamin D3) 125 5,000 unit PO QDL 04/25/18 12/23/21 History mcg (5,000 unit) capsule multivitamin with minerals 1 tab PO QDL 02/12/19 12/23/21 History hydroxychloroquine 200 mg tablet 200 mg PO BID 09/05/19 12/23/21 History (Plaquenil) prednisone 5 mg tablet 5 mg PO QAM 07/12/20 12/23/21 History Lift chair #1 ea 08/22/20 12/23/21 Rx magnesium oxide 400 mg PO DAILY PRN LEG CRAMPS 10/27/20 12/23/21 History omeprazole 20 mg tablet,delayed 20 mg PO QAM #90 tabs 04/09/21 12/23/21 Rx release duloxetine 60 mg capsule,delayed 60 mg PO DAILY #90 caps 07/07/21 12/23/21 Rx release calcium carbonate 600 mg calcium 600 mg PO DAILY 08/28/21 12/23/21 History (1,500 mg) tablet (Calcium) CPAP Machine #1 ea 09/08/21 12/23/21 Rx atorvastatin 10 mg tablet 10 mg PO DAILY #90 tabs 09/15/21 12/23/21 Rx celecoxib 200 mg capsule (Celebrex) 200 mg PO BID #180 caps 09/22/21 12/23/21 Rx olmesartan 20 1 tab PO QAM #90 tabs 10/27/21 12/23/21 Rx mg-hydrochlorothiazide 12.5 mg tablet potassium chloride 10 mEq 10 meq PO .COMPLEX 90 days #180 12/23/21 12/23/21 Rx tablet,extended release (Klor-Con) tabs bumetanide 2 mg tablet 2 mg PO .COMPLEX 30 days #60 tabs 12/24/21 Rx lorazepam 0.5 mg tablet 0.5 mg PO BID PRN Anxiety #60 tabs 02/02/22 Rx Allergies Allergy/AdvReac Type Severity Reaction Status Date / Time No Known Allergies Allergy Verified 12/23/21 14:15 Past Med/Surg History Medical History Claudication of both lower extremities Depression GERD (gastroesophageal reflux disease) controlled Hiatal hernia Hyperlipidemia Hypertension Inflammatory polyarthritis Malignant neoplasm of upper-inner quadrant of left breast in female, estrogen receptor negative (04/24/19) Nocturnal hypoxemia Obesity, morbid, BMI 40.0-49.9 Rheumatoid arthritis on Plaquenil/prednisone 5mg daily chronic (mostly affects spine/hip/knee locations, no cervical issues) Spinal stenosis, lumbar region with neurogenic claudication Surgical History Difficult airway for intubation WITH BREAST SURGERY 05/2019 [facility] History of cholecystectomy History of colonoscopy History of esophagogastroduodenoscopy (EGD) History of lumpectomy of left breast partial History of open reduction and internal fixation (ORIF) procedure right wrist History of tonsillectomy and adenoidectomy History of total abdominal hysterectomy and bilateral salpingo-oophorectomy History of total hip arthroplasty RIGHT 10/2020 History of vascular access device present right chest Status post right foot surgery Family History Mother , age 77 CHF Family history of diabetes mellitus Hypertension Family history of cardiac disorder Diabetes type 2 Deep vein thrombosis Brother , age 49 colon cancer Family hx of colon cancer Colorectal cancer Grandfather Family hx of colon cancer PATERNAL Father , age 60 cardiac arrest Family history of cardiac disorder Myocardial infarction Sister Family history of malignant neoplasm Breast cancer, Onset Age: 50 Son Allergic rhinitis Coronary heart disease Son No problems noted. Denies family history of Ovarian cancer Social History Smoking Status: Never smoker Second Hand Exposure: No (FATHER SMOKED); Hx Alcohol Use: Yes Alcohol type: wine Hx Substance Use: No Preferred Language: Cypriot Communication Ability: Effective Hearing Ability: Normal Design Engineer Required: No Beliefs That Will Affect Care: None marital status: / Current Living Situation: Alone Current Living Situation Comment: Lives alone at home. 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 [employer] How many Children do You have: 2 Feels Safe at Home: Yes Childhood Exposure to Second-Hand Smoke: Yes Diet Comment: low sodium caffeine: Yes during the past year weight has: other Dental Care, Regularly: Yes Physical Activity Frequency: 1-2 Times per Week Seatbelt Use: always Sunscreen Use: Yes (sometimes) Assistive Devices: Walker Review of Systems A total of 10 systems reviewed and were otherwise negative Physical Exam Vital Signs Vital Signs - 24 hr 03/22/22 21:24 03/22/22 22:00 03/22/22 23:03 Temperature 36.8 C Temperature Source Oral Pulse Rate 78 Pulse Rate [Finger] 82 Respiratory Rate 18 18 Blood Pressure 117/71 Blood Pressure [Right Arm] 112/71 Blood Pressure Mean 86 Blood Pressure Mean [Right Arm] 84 Pulse Oximetry 94 96 96 Oxygen Delivery Method Room Air Room Air Room Air Sepsis Recent Fever Within 48 Hours No Sepsis New/Unexplained Change in Mental Status N/A Sepsis Action Taken by Nursing No Action Required 03/23/22 02:15 Temperature Temperature Source Pulse Rate Pulse Rate [Finger] 85 Respiratory Rate 18 Blood Pressure Blood Pressure [Right Arm] 125/75 Blood Pressure Mean Blood Pressure Mean [Right Arm] 91 Pulse Oximetry 93 Oxygen Delivery Method Room Air Sepsis Recent Fever Within 48 Hours Sepsis New/Unexplained Change in Mental Status Sepsis Action Taken by Nursing VITALS: Vitals are noted on the nurse's note and reviewed by myself. Vital signs stable. GENERAL: Pleasant elderly female who appears in pain, in no acute distress, nondiaphoretic, well-developed well-nourished. SKIN: The skin was without rashes, erythema, edema, or bruising. There is no tenting of the skin. Capillary reflex less than 2 seconds. HEAD: Normocephalic atraumatic. EARS: External auditory canals clear, EYES: Pupils equal round and reactive to light and accommodation. Conjunctivae without injection, sclerae without icterus. Extraocular movements intact. NOSE: Patent, turbinates without inflammation or discharge. MOUTH: Mucous membranes moist. Pharynx without erythema or exudate. Uvula midline. Airway patent. Tongue does not deviate. NECK: Supple without nuchal rigidity. No lymphadenopathy. No thyromegaly. Cervical spine is nontender. No JVD. HEART: Regular rate and rhythm LUNGS: Clear to auscultation bilaterally without wheezes, rales or rhonchi. No retractions or accessory muscle use. ABDOMEN: Positive bowel sounds x 4. Normal tympanic percussion. Soft, nontender, without masses or organomegaly. Chavira sign negative. No guarding or rebound tenderness. No CVA tenderness MUSCULOSKELETAL: No muscle atrophy, erythema, or edema noted. Positive straight leg on the right, negative on the left. Patient can plantarflex and dorsiflex. Pedal pulses +2 equal present bilaterally. NEURO: Patient was alert and oriented to person place and time. Normal sensation to light and sharp touch. No focal neurological deficits. Course Administered Medications Discontinued Medications Acetaminophen (Ofirmev) 1,000 mg in 100 mls @ 400 mls/hr IV NOW STA Stop: 03/22/22 22:07 Last Infusion: 03/22/22 22:43 Dose: 0 mls/hr Documented By: Admin: 03/22/22 22:27 Dose: 400 mls/hr Documented By: SHIRIN Lorazepam (Lorazepam 1 Mg Tab) 1 mg PO NOW STA Stop: 03/22/22 23:16 Last Admin: 03/22/22 23:17 Dose: 1 mg Documented By: SHIRIN Medical Decision Making Medical Records Attestation: I reviewed the patient's medical records. Home Medications Current Medication List: was personally reviewed by me Laboratory Data Attestation: I reviewed the patient's lab results. Result diagrams: 03/22/22 22:25 03/22/22 22:25 Lab Results 03/22/22 03/22/22 Range/Units 22:25 22:25 WBC 5.86 (4.8-10.8) K/ul RBC 3.92 L (3.93-5.22) M/uL Hgb 12.4 (12.0-16.0) g/dl Hct 36.2 (34.1-44.9) % MCV 92.3 (80.0-100.0) fL MCH 31.6 (25.0-34.0) pg MCHC 34.3 (32.0-36.0) g/dL RDW Std Deviation 41.8 (36.4-46.3) fL RDW Coeff of [place] 12.5 (11.5-14.5) % Plt Count 199 (130-400) K/uL MPV 8.6 L (9.4-12.3) fL Immature Gran % (Auto) 0.2 % Neut % (Auto) 74.2 % Lymph % (Auto) 13.5 % Gaines % (Auto) 9.2 % Eos % (Auto) 2.6 % Baso % (Auto) 0.3 % Neut # (Auto) 4.35 (1.4-6.5) K/uL Lymph # (Auto) 0.79 L (1.2-3.4) K/uL Gaines # (Auto) 0.54 (0.24-0.82) K/uL Eos # (Auto) 0.15 (0-0.50) K/uL Baso # (Auto) 0.02 (0-0.2) K/uL Immature Gran # (Auto) 0.01 (0.00-0.02) K/uL Sodium 140 (136-145) mmol/L Potassium 3.4 L (3.5-5.1) mmol/L Chloride 99 (98-107) mmol/L Carbon Dioxide 31 (21-32) mmol/L Anion Gap 10 (3-11) BUN 23 (6-23) mg/dl Creatinine 1.07 (0.6-1.2) mg/dl Est Cr Clr Drug Dosing Not Reportable Est GFR ( Amer) 59.6 ml/min Est GFR (Non-Af Amer) 51.5 ml/min BUN/Creatinine Ratio 21.5 H (10-20) Glucose 94 (70-99(Fasting)) mg/dl Calcium 9.5 (8.5-10.1) mg/dl Total Bilirubin 0.8 (0.2-1.0) mg/dl AST 26 (13-39) U/L ALT 16 (7-52) U/L Alkaline Phosphatase 259 H (34-104) U/L Total Protein 6.8 (6.0-8.3) gm/dl Albumin 3.9 (3.4-5.0) gm/dl Globulin 2.9 (2.5-4.0) gm/dl Albumin/Globulin Ratio 1.3 (0.9-2) Imaging Data Attestation: I personally reviewed and interpreted this imaging study as follows: MDM Narrative Prior records/ancillary studies reviewed. Triage Nursing notes reviewed. Additional history obtained from nursing. The patient's history was concerning for back pain. Differential diagnosis: Etiologies such as musculoskeletal, disc herniation, fracture, aortic disease, metastatic disease, cord compression, discitis, infection, renal colic, gastrointestinal, acute exacerbation of chronic back pain, sciatica, cauda equina, as well as others were entertained. Physical findings: As above. No focal neurologic findings noted. ER treatment provided: Tylenol On reassessment the patient felt better. Diagnostics interpreted by me: The labs revealed evaded alk phos Imaging studies: MRI L SPINE : Moderate degenerative changes of the spine. Numerous lesions scattered throughout the lumbar and sacral spine. Multilevel disc desiccation and disc space narrowing. Moderate canal stenosis at L2-L3. Moderate canal stenosis at L3-L4. Moderate canal stenosis at L4-L5. Conus intact. Comparison February 05, 2021. Interval development of the lesions. Impression: Findings concerning for metastatic disease. Radiologist: Dusty Brooks M.D. Consultation: A consultation was placed with hospitalist. The case was discussed and diagnostics were reviewed. Will evaluate for possible admission. This appears to be consistent with intractable back pain with new metastases. Patient states she is been cancer free and follows with Dr. Prakash for her history of breast cancer. Medicine was consulted. They will be evaluated for admission. By the evaluation outlined above emergent etiologies such as fracture, aortic disease, infection, renal colic, gastrointestinal, cord compression, cauda equina, as well as others were deemed relatively unlikely. The pt informed about the findings as listed above. All questions were answered and pleased with the treatment. The chart was completed utilizing [employer] Speech voice recognition software. Grammatical errors, random word insertions, pronoun errors, and incomplete sentences are an occassional consequence of this system due to software limitations, ambient noise, and hardware issues. Any formal questions or concerns about the content, text, or information contained within the body of this dictation should be directly addressed to the physician culinary assistant for clarification. Impression & Plan Spine metastasis, Intractable low back pain Discharge Plan Visit Data Chief Complaint: Back Injury/Pain Stated Complaint: back pain ED Provider: Ishan Marie ED Midlevel Provider: Anne Marie Garcia Discharge Problem: Spine metastasis, Intractable low back pain Patient Disposition: Admitted As Inpatient Condition: Fair Forms Stand Alone Forms: My [facility] Prescriptions Prescriptions: No Action hydroxychloroquine [Plaquenil] 200 mg tablet 200 mg PO BID calcium carbonate [Calcium 600] 600 mg calcium (1,500 mg) tablet 600 mg PO DAILY (DME) Lift chair See Rx Instructions .Route .MEDSUPPLY Qty: 1 0RF Rx Instructions: As directed omeprazole 20 mg tablet,delayed release (DR/EC) 20 mg PO QAM Qty: 90 3RF duloxetine 60 mg capsule,delayed release(DR/EC) 60 mg PO DAILY Qty: 90 3RF celecoxib [Celebrex] 200 mg capsule 200 mg PO BID Qty: 180 3RF olmesartan-hydrochlorothiazide 20-12.5 mg tablet 1 tab PO QAM Qty: 90 3RF potassium chloride [Klor-Con 10] 10 mEq tablet extended release 10 meq PO .COMPLEX 90 Days Qty: 180 3RF Rx Instructions: 10 mEq PO 1 tab in the a.m. and 1 tab at noon; bumetanide 2 mg tablet 2 mg PO .COMPLEX 30 Days Qty: 60 1RF Rx Instructions: 2 mg PO 1 tab in the a.m. and 1 tab at noon lorazepam 0.5 mg tablet 0.5 mg PO BID PRN (Reason: Anxiety) Qty: 60 0RF (DME) CPAP Machine Misc See Rx Instructions .MEDSUPPLY Qty: 1 0RF Rx Instructions: CPAP 13 cm water pressure, c flex setting #2 with heated humidification, tubing, and supplies. ALTAGRACIA: 99+ years. atorvastatin 10 mg tablet 10 mg PO DAILY Qty: 90 3RF cholecalciferol (vitamin D3) 5,000 unit Capsule 5,000 unit PO QDL multivitamin with minerals tablet 1 tab PO QDL prednisone 5 mg tablet 5 mg PO QAM magnesium oxide 400 mg magnesium Tablet 400 mg PO DAILY PRN (Reason: LEG CRAMPS) Referrals Referrals: Katlin Nix CRNP [Primary Care Provider] -
[2022-03-22] MEDS ORDERED: LORazepam 1 MG TAB PO STA (23:15)
[2022-03-23 02:52] LABS: Appearance Urine Clear (Clear); Bilirubin Urine Negative (Negative); Blood Urine Negative (Negative); Color Urine Yellow; Glucose Urine UA Negative (Negative); Ketones Urine Negative (Negative); Leukocyte Esterase Urine Negative (Negative); Nitrite Urine Negative (Negative); Protein Urine Negative (Negative); Specific Gravity Urine 1.016 (1.000-1.030); Urobilinogen Urine Negative (Negative)
--- NOTE | 2022-03-23 03:10 | History & Physical Report ---
Date of Service March 23, 2022 Assessment & Plan (1) Spine metastasis: Plan: 71yo female with history of left invasive ductal carcinoma s/p lumpectomy, chemotherapy presenting with acute progressive back pain. Found to have multiple lesions of the lumbar and sacral spine unfortunately concerning for metastatic disease. -Admit to medical -Pain control with Tylenol, Lidoderm and Oxycodone PRN -Heme/Onc consultation appreciated -Will order CT C/A/P to assess additional organ involvment (2) Malignant neoplasm of upper-inner quadrant of left breast in female, estrogen receptor negative: Plan: s/p Chemo, possible recurrence as above -Hematology/Oncology assessment appreciated (3) Moderate obstructive sleep apnea: Plan: Chronic -Continue CPAP qHS (4) Hyperlipidemia: Plan: Chronic. -Continue Atorvastatin (5) Rheumatoid arthritis: Plan: Chronic. Stable -Continue home Prednisone 5mg po qAM -Continue Plaquenil (6) Hypertension: Plan: Chronic. Well controlled -Continue olmesartan/HCTZ -Continue to monitor History of Present Illness Chief Complaint: back pain Primary Care Provider: BONIFACIO Pacheco Yamilet Joe is a pleasant 71yo female with history of high-grade triple negative invasive ductal carcinoma of the left breast diagnosed 04/2019 s/p lumpectomy and left axillary sentinel node biopsy, s/p chemotherapy with taxotere and cyclophosphamide completed 08/17/2019. Patient has been cancer free. She presents with severe back pain in the right lumbar with radiation down the right leg 1 day. Difficulty walking secondary to pain. She was unable to walk up the stairs in her home. She denies fever, chills, fall, trauma. Denies numbness/tingling or weakness of the lower extremities. Denies bowel or bladder incontinence. Imaging obtained in the ER suggestive of metastatic disease involving the lumbar and sacral spine spine. Patient is aware of these findings and is tearful during exam. Allergies Allergy/AdvReac Type Severity Reaction Status Date / Time No Known Allergies Allergy Verified 12/23/21 14:15 Home Medications Medication Instructions Recorded Confirmed Type cholecalciferol (vitamin D3) 125 5,000 unit PO QDL 04/25/18 12/23/21 History mcg (5,000 unit) capsule multivitamin with minerals 1 tab PO QDL 02/12/19 12/23/21 History hydroxychloroquine 200 mg tablet 200 mg PO BID 09/05/19 12/23/21 History (Plaquenil) prednisone 5 mg tablet 5 mg PO QAM 07/12/20 12/23/21 History Lift chair #1 ea 08/22/20 12/23/21 Rx magnesium oxide 400 mg PO DAILY PRN LEG CRAMPS 10/27/20 12/23/21 History omeprazole 20 mg tablet,delayed 20 mg PO QAM #90 tabs 04/09/21 12/23/21 Rx release duloxetine 60 mg capsule,delayed 60 mg PO DAILY #90 caps 07/07/21 12/23/21 Rx release calcium carbonate 600 mg calcium 600 mg PO DAILY 08/28/21 12/23/21 History (1,500 mg) tablet (Calcium) CPAP Machine #1 ea 09/08/21 12/23/21 Rx atorvastatin 10 mg tablet 10 mg PO DAILY #90 tabs 09/15/21 12/23/21 Rx celecoxib 200 mg capsule (Celebrex) 200 mg PO BID #180 caps 09/22/21 12/23/21 Rx olmesartan 20 1 tab PO QAM #90 tabs 10/27/21 12/23/21 Rx mg-hydrochlorothiazide 12.5 mg tablet potassium chloride 10 mEq 10 meq PO .COMPLEX 90 days #180 12/23/21 12/23/21 Rx tablet,extended release (Klor-Con) tabs bumetanide 2 mg tablet 2 mg PO .COMPLEX 30 days #60 tabs 12/24/21 Rx lorazepam 0.5 mg tablet 0.5 mg PO BID PRN Anxiety #60 tabs 02/02/22 Rx Past Med/Surg History Medical History Claudication of both lower extremities Depression GERD (gastroesophageal reflux disease) controlled Hiatal hernia Hyperlipidemia Hypertension Inflammatory polyarthritis Malignant neoplasm of upper-inner quadrant of left breast in female, estrogen receptor negative (04/24/19) Nocturnal hypoxemia Obesity, morbid, BMI 40.0-49.9 Rheumatoid arthritis on Plaquenil/prednisone 5mg daily chronic (mostly affects spine/hip/knee locations, no cervical issues) Spinal stenosis, lumbar region with neurogenic claudication Surgical History Difficult airway for intubation WITH BREAST SURGERY 05/2019 [facility] History of cholecystectomy History of colonoscopy History of esophagogastroduodenoscopy (EGD) History of lumpectomy of left breast partial History of open reduction and internal fixation (ORIF) procedure right wrist History of tonsillectomy and adenoidectomy History of total abdominal hysterectomy and bilateral salpingo-oophorectomy History of total hip arthroplasty RIGHT 10/2020 History of vascular access device present right chest Status post right foot surgery Family History Mother , age 77 CHF Family history of diabetes mellitus Hypertension Family history of cardiac disorder Diabetes type 2 Deep vein thrombosis Brother , age 49 colon cancer Family hx of colon cancer Colorectal cancer Grandfather Family hx of colon cancer PATERNAL Father , age 60 cardiac arrest Family history of cardiac disorder Myocardial infarction Sister Family history of malignant neoplasm Breast cancer, Onset Age: 50 Son Allergic rhinitis Coronary heart disease Son No problems noted. Denies family history of Ovarian cancer Social History Smoking Status: Never smoker Second Hand Exposure: No (FATHER SMOKED); Hx Alcohol Use: Yes Alcohol type: wine Hx Substance Use: No Preferred Language: Haitian Communication Ability: Effective Hearing Ability: Normal Assistant Service Manager Required: No Beliefs That Will Affect Care: None marital status: / Current Living Situation: Alone Current Living Situation Comment: Lives alone at home. 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 [employer] How many Children do You have: 2 Feels Safe at Home: Yes Childhood Exposure to Second-Hand Smoke: Yes Diet Comment: low sodium caffeine: Yes during the past year weight has: other Dental Care, Regularly: Yes Physical Activity Frequency: 1-2 Times per Week Seatbelt Use: always Sunscreen Use: Yes (sometimes) Assistive Devices: Walker Review of Systems Review of Systems: All systems reviewed & are unremarkable except as noted in HPI & below Physical Exam Physical Exam: General: patient resting comfortably, NAD, non-toxic in appearance, AA&O x 4 Skin: warm, dry, intact, no rashes or lesions HEENT: NC/AT, PERRL, EOMI, anicteric sclera, conjunctiva without injection, external ear normal to inspection and nontender, nares patent, moist mucus membranes, dentition intact, no oropharyngeal lesions, neck supple, trachea midline, no LAD, no thyromegaly, no JVD Heart: +S1/S2, regular, no m/r/g, port in right chest Lungs: equal air entry bilaterally, no rales/rhonchi/wheezes Abd: +BS, soft, NT/ND, no masses/organomegaly/ascites Ext: warm, 2+ pulses in UE/LE bilaterally, no clubbing/cyanosis or edema, LUE limb restriction Neuro: nonfocal, patient AA&O x 4, speech intact, no facial droop, moving all extremities on command with equal strength 5/5 Results & Data Results & Data ([facility]) Vital Signs (Past 12 Hours) Vital Signs Temp Pulse Pulse Resp BP BP Pulse Ox 03/23/22 02:15 85 18 125/75 93 03/22/22 23:03 82 18 112/71 96 03/22/22 22:00 96 03/22/22 21:24 36.8 C 78 18 117/71 94 O2 Del Method 03/23/22 02:15 Room Air 03/22/22 23:03 Room Air 03/22/22 22:00 Room Air 03/22/22 21:24 Room Air Laboratory Results Laboratory Results WBC 5.86 K/ul (4.8-10.8) 03/22/22 22:25 RBC 3.92 M/uL (3.93-5.22) L 03/22/22 22:25 Hgb 12.4 g/dl (12.0-16.0) 03/22/22 22:25 Hct 36.2 % (34.1-44.9) 03/22/22 22:25 MCV 92.3 fL (80.0-100.0) 03/22/22 22:25 MCH 31.6 pg (25.0-34.0) 03/22/22 22:25 MCHC 34.3 g/dL (32.0-36.0) 03/22/22 22:25 RDW Std Deviation 41.8 fL (36.4-46.3) 03/22/22 22:25 RDW Coeff of [place] 12.5 % (11.5-14.5) 03/22/22 22:25 Plt Count 199 K/uL (130-400) 03/22/22: MPV 8.6 fL (9.4-12.3) L 03/22/22: Immature Gran % (Auto) 0.2 % 03/22/22: Neut % (Auto) 74.2 % 03/22/22: Lymph % (Auto) 13.5 % 03/22/22: [place] % (Auto) 9.2 % 03/22/22: Eos % (Auto) 2.6 % 03/22/22: Baso % (Auto) 0.3 % 03/22/22: Neut # (Auto) 4.35 K/uL (1.4-6.5) 03/22/22: Lymph # (Auto) 0.79 K/uL (1.2-3.4) L 03/22/22: [place] # (Auto) 0.54 K/uL (0.24-0.82) 03/22/22: Eos # (Auto) 0.15 K/uL (0-0.50) 03/22/22: Baso # (Auto) 0.02 K/uL (0-0.2) 03/22/22: Immature Gran # (Auto) 0.01 K/uL (0.00-0.02) 03/22/22: Sodium 140 mmol/L (136-145) 03/22/22: Potassium 3.4 mmol/L (3.5-5.1) L 03/22/22: Chloride 99 mmol/L (98-107) 03/22/22: Carbon Dioxide 31 mmol/L (21-32) 03/22/22: Anion Gap 10 (3-11) 03/22/22: BUN 23 mg/dl (6-23) 03/22/22: Creatinine 1.07 mg/dl (0.6-1.2) 03/22/22 Est Cr Clr Drug Dosing Not Reportable 03/22/22: Est GFR ( Amer) 59.6 ml/min 03/22/22: Est GFR (Non-Af Amer) 51.5 ml/min 03/22/22 22:25 BUN/Creatinine Ratio 21.5 (10-20) H 03/22/22 22:25 Glucose 94 mg/dl (70-99(Fasting)) 03/22/22 22:25 Calcium 9.5 mg/dl (8.5-10.1) 03/22/22 22:25 Total Bilirubin 0.8 mg/dl (0.2-1.0) 03/22/22 22:25 AST 26 U/L (13-39) 03/22/22 22:25 ALT 16 U/L (7-52) 03/22/22 22:25 Alkaline Phosphatase 259 U/L (34-104) H 03/22/22 22:25 Total Protein 6.8 gm/dl (6.0-8.3) 03/22/22 22:25 Albumin 3.9 gm/dl (3.4-5.0) 03/22/22 22:25 Globulin 2.9 gm/dl (2.5-4.0) 03/22/22 22:25 Albumin/Globulin Ratio 1.3 (0.9-2) 03/22/22 22:25 Urine Color Yellow 03/23/22 02:39 Urine Appearance Clear (Clear) 03/23/22 02:39 Urine pH 6.0 (4.5-7.5) 03/23/22 02:39 Ur Specific [place] 1.016 (1.000-1.030) 03/23/22 02:39 Urine Protein Negative (Negative) 03/23/22 02:39 Urine Glucose (UA) Negative (Negative) 03/23/22 02:39 Urine Ketones Negative (Negative) 03/23/22 02:39 Urine Blood Negative (Negative) 03/23/22 02:39 Urine Nitrite Negative (Negative) 03/23/22 02:39 Urine Bilirubin Negative (Negative) 03/23/22 02:39 Urine Urobilinogen Negative (Negative) 03/23/22 02:39 Ur Leukocyte Esterase Negative (Negative) 03/23/22 02:39 SARS-CoV-2, RNA, NAAT NEGATIVE (NEGATIVE) 03/23/22 02:39 Code Status & VTE Plan VTE Prophylaxis Plan VTE Prophylaxis will be ordered: Yes PG Care Time/CCT Total # of Minutes Spent Total Time Spent with Patient: Total time spent is greater than 50% in coordination of care (as documented) at patient's floor/unit and/or counseling patient: Coding Level of Care Code 01745 Initial Inpt Care Lvl 3 Diagnoses Spine metastasis C79.51 Malignant neoplasm of upper-inner quadrant of left breast in female, estrogen receptor negative C50.212; Z17.1 Moderate obstructive sleep apnea G47.33 Hyperlipidemia E78.5 Rheumatoid arthritis M06.9 Hypertension I10
[2022-03-23] MEDS ORDERED: DOCUSATE SODIUM 100 MG CAP PO PRN (04:45)
[2022-03-23] MEDS ORDERED: POTASSIUM CHLORIDE CRTAB 20 MEQ TABCR PO STA (04:45)
[2022-03-23] MEDS ORDERED: ONDANSETRON INJ 2 MG/ML 2 ML VIAL IV PRN (04:45)
[2022-03-23] MEDS: ACETAMINOPHEN 325 MG TAB PO SCH ×4 (05:38→23:34)
--- NOTE | 2022-03-23 08:49 | Hospitalist Progress Note ---
Date of Service March 23, 2022 Assessment & Plan (1) Spine metastasis: (2) Intractable low back pain: (3) Moderate obstructive sleep apnea: (4) Chronic diastolic CHF (congestive heart failure): (5) Hyperlipidemia: (6) Rheumatoid arthritis: (7) Hypertension: (8) Malignant neoplasm of upper-inner quadrant of left breast in female, estrogen receptor negative: (9) L4-L5 disc bulge: Plan 71yo female with history of left invasive ductal carcinoma s/p lumpectomy, chemotherapy presenting with acute progressive back pain. Found to have multiple lesions of the lumbar and sacral spine unfortunately concerning for metastatic disease. Intractable Back Pain -- two possible etiologies with metastatic disease and disc bulge as below -MRI lumbar spine showing evidence of multifocal metastatic disease throughout the lumbosacral spine and bony pelvis & large right lateral disc bulge at L4-L5 which impinges on the exiting right L4 nerve root -CT A/P showing extensive/multifocal osteoblastic metastatic disease, no additional sites of metastatic disease seen in the abdomen or pelvis. -CT chest showing interval significant worsening of diffuse osseous metastatic disease. No suspicious pulmonary nodules seen. No mediastinal lymphadenopathy. Stable cardiomegaly and hiatal hernia. Fluid density lesion in the left chest wall somewhat decreased in size from prior, likely posttreatment change. -Discussed current case with [facility] oncology Dr. Prakash who recommended: -Brain MRI with/without contrast -Biopsy of spinal lesions, which he will help set up as an outpatient with IR in [place] -Hold off on Rad Onc at this time as this might interfere with ability to biopsy -Patient's area of pain does correlate with finding of L4-L5 disc bulge consult Ortho spine for recommendations -Pain control with Tylenol, Lidoderm and Oxycodone PRN Malignant neoplasm of upper-inner quadrant of left breast in female, estrogen receptor negative: -s/p Chemo, possible recurrence as above -Hematology/Oncology discussion as above -Likely metastatic disease as above Moderate obstructive sleep apnea: - Chronic -Continue CPAP qHS Hyperlipidemia: -Continue Atorvastatin Rheumatoid arthritis: -Continue home Prednisone 5mg po qAM -Continue Plaquenil Hypertension: -Continue olmesartan/HCTZ -Continue to monitor DVT prophylaxis: Lovenox 40 mg SQ daily Diet: Heart healthy Dispo: MedSurg, pending results of imaging and consult CODE STATUS: DNR/DNI Admission and Anticipated Discharge Date Admission Date: March 23, 2022 Supervising Physician Co-Signing Physician Notes Resident Physician Supervision Note: I independently interviewed and examined the patient and verified the araujo history and physical, reviewed labs and image studies and agree with resident Dr. Larose findings and care plan. Subjective Seen at bedside this AM. Patient stating that her pain is reasonably well- controlled with Tylenol thus far. However, she also mentioned this is because she has not moved much and the pain seems to feels worse if she does move. Otherwie denies other symptoms including f/c, n/v, muscle aches, CHEN, dizziness, n/v, abd pain, CP, palp, SOB. Review of Systems Review of Systems: Per HPI Physical Exam Physical Exam: GENERAL: A&Ox3. NAD. HEENT: PERRL, EOMI. Moist mucous membranes. NECK: No JVD. No lymphadenopathy. CHEST/LUNGS: CTAB A/P. No crackles, wheezes, rales, rhonchi. HEART: RRR. No m/g/r. No carotid bruits. ABDOMEN: NT/ND, soft. BS+ x4 MSK: TTP along lumbar spine and adjacent musculature. No cyanosis, no clubbing, no edema of extremities. SKIN: Warm and dry. No rashes or lesions. PSYCHIATRIC: Euthymic affect, no SI, no pressured speech, no hallucinations NEUROLOGIC: No FND. CN II-XII grossly intact. Results & Data Results & Data ([facility]) Vital Signs (Past 12 Hours) Vital Signs Temp Pulse Pulse Resp BP BP Pulse Ox 03/23/22 05:53 92 H 126/79 93 03/23/22 03:00 74 18 111/80 97 03/23/22 02:15 85 18 125/75 93 03/22/22 23:03 82 18 112/71 96 03/22/22 22:00 96 03/22/22 21:24 36.8 C 78 18 117/71 94 O2 Del Method 03/23/22 05:53 Room Air 03/23/22 03:00 Room Air 03/23/22 02:15 Room Air 03/22/22 23:03 Room Air 03/22/22 22:00 Room Air 03/22/22 21:24 Room Air Resident Activity Tracking Resident Involvement: Resident Care Provided Care Provided: Adult Hospital Medicine
[2022-03-23] MEDS: DULoxetine HCL 60 MG CAP PO SCH (09:08)
[2022-03-23] MEDS: BUMETANIDE 1 MG TAB PO SCH ×2 (09:08→12:49)
[2022-03-23] MEDS: ENOXAPARIN INJ 40 MG/0.4 ML SYR SQ SCH (09:08)
[2022-03-23] MEDS: predniSONE 5 MG TAB PO SCH (09:08)
[2022-03-23] MEDS: OLMESARTAN MEDOXOMIL 20 MG TAB PO SCH (09:09)
[2022-03-23] MEDS: PANTOprazole 40 MG TAB PO SCH (09:09)
[2022-03-23] MEDS: hydroCHLOROthiazide 25 MG TAB PO SCH (09:09)
[2022-03-23] MEDS: HYDROXYCHLOROQUINE SULFATE 200 MG TAB PO SCH ×2 (09:10→20:13)
[2022-03-23] MEDS: LIDOCAINE 5% 1 PATCH TD SCH (09:10)
[2022-03-23] MEDS: oxyCODONE HCL IR 5 MG TAB (IMMEDIATE RELEASE) PO PRN ×3 (10:07→23:34)
--- NOTE | 2022-03-23 10:14 | Magnetic Resonance Report ---
MRI OF THE LUMBAR SPINE WITHOUT IV CONTRAST CLINICAL HISTORY: Right lower extremity radiculopathy. Breast cancer. COMPARISON STUDY: MRI of the lumbar spine dated 02/05/2021. Abdominal CT dated 10/09/2016. TECHNIQUE: MRI of the lumbar spine is performed utilizing various T1 and T2-weighted sequences in the axial and sagittal planes. IV contrast was not administered for this examination. The examination is severely degraded by motion artifact. FINDINGS: Lumbar spine: Vertebral body height is maintained throughout the lumbar spine. There is minimal anter olisthesis at L4-L5. Minimal retrolisthesis is seen at L2-L3. There is mild hyperlordosis. Anterior a nd lateral marginal osteophytes are seen throughout. Hemangiomas are suggested in the bodies of T12, L2, L4, and L5. There is evidence of multifocal osseous metastatic disease. Lesions are seen within T 12, L1, L3, L4, L5, and the sacrum involving S1 and S2. Metastatic lesions are also seen within the i liac wings. Multilevel degenerative endplate change is observed. There is no evidence of spondylolysi s. The transverse and spinous processes are grossly intact. Intervertebral discs: Degenerative disc desiccation is seen throughout the lumbar spine. There is mod erate loss of height throughout. Spinal cord: The visualized spinal cord is normal in morphology and signal intensity. The conus medul harsh terminates at the L1-L2 interspace. The nerve roots of the cauda equina are not well assessed d ue to motion artifact. L1-L2: There is minimal posterior disc bulge. The central canal is clear. Facet arthropathy is of no consequence. The neural foramina appear patent. L2-L3: There is a large posterior disc osteophyte complex which abuts the transiting nerve roots. In conjunction with hypertrophy of the ligamentum flavum there is mild to moderate central canal stenosi s with a minimum AP diameter of 6 mm. Lateral disc bulge contributes to bilateral subarticular stenos is. This may abut the exiting bilateral L2 nerve roots. In conjunction with facet arthropathy there i s mild to moderate bilateral neural foraminal narrowing. L3-L4: There is broad-based posterior disc bulge. In conjunction with hypertrophy of the ligamentum f lavum there is moderate central canal stenosis with a minimum AP diameter of 6 mm. Lateral disc bulge contributes to bilateral subarticular stenosis. In conjunction with facet arthropathy there is mild bilateral neural foraminal stenosis. L4-L5: There is broad-based posterior disc bulge. In conjunction with hypertrophy of the ligamentum f lavum there is mild central canal stenosis with a minimum AP diameter of 8 mm. There is a large right lateral disc bulge which contributes to severe subarticular stenosis and impinges on the exiting rig ht L4 nerve root. Only mild subarticular stenosis is seen on the left. In conjunction with facet arth ropathy there is severe right and mild to moderate left neural foraminal stenosis. L5-S1: There is broad-based posterior disc bulge. This abuts the transiting nerve roots. No acquired compromise of the central canal is identified. Lateral disc bulge contributes to bilateral subarticul ar stenosis. This may abut the exiting bilateral L5 nerve roots. In conjunction with facet arthropath y there is mild bilateral neural foraminal stenosis. Sacrum: There is edema within the right aspect of the sacrum, likely related to metastatic lesions di scussed above. No fracture is clearly seen. Soft tissues: There is fatty atrophy of the paraspinous musculature. Mild soft tissue edema overlies the right sacral metastases. The retroperitoneal structures are grossly unremarkable but incompletely evaluated. IMPRESSION: 1. Severely motion degraded examination. 2. There is evidence of multifocal metastatic disease throughout the lumbosacral spine and bony pelvi s as detailed above. This is new from the 02/05/2021 examination. 3. Large right lateral disc bulge at L4-L5 which impinges on the exiting right L4 nerve root. 4. Spondylotic change as above with multilevel acquired compromise of the central canal. See discussi on for detailed level by level analysis. Dictated: 03/23/2022 9:11 AM Transcribed: 03/23/2022 9:34 AM [place] [id number] [email or web address] Electronically signed by: Trung Marques M.D. 03/23/2022 10:13 AM
[2022-03-23] MEDS ORDERED: OPTIRAY 300 500mL IV ONE (10:30)
--- NOTE | 2022-03-23 10:59 | CT Scan Report ---
CT chest diagnostic w con CLINICAL HISTORY: metastatic disease. History of breast cancer. Lesions on the lumbar spine and recen t MRI. TECHNIQUE: Multidetector row helical CT of the chest was performed with intravenous contrast. Coronal and sagittal reformations were obtained. Automated dose lowering techniques and/or adjustment accord ing to patient size were utilized for this exam. CT DOSE: 1674.76 mGycm Comparison: Comparison is made to CT chest 09/25/2019 and MRI lumbar spine 04/22/2022 FINDINGS: Lungs and pleura: There is atelectasis in the left lung base likely owing to adjacent hiatal hernia. No suspicious pulmonary nodules are seen. Heart and pericardium: Cardiomegaly is seen with biatrial enlargement. Vessels: Moderate atherosclerotic changes in the aorta and coronary arteries. Mediastinum and gail: Unremarkable. Chest wall and lower neck: There is a fluid density left chest wall lesion with an internal calcifica tion, somewhat decreased in size from prior exam. Abdomen: A hiatal hernia is seen. Please see CT abdomen pelvis performed same day for findings below the diaphragm. Bones: Extensive osseous metastatic disease is seen in the thoracic spine, shoulders, scapula, and ri bs. In particular, the left second rib has a expansile, mild in appearance with a small soft tissue c omponent. These findings are significantly more extensive than on the prior exam. IMPRESSION: 1. Interval significant worsening of diffuse osseous metastatic disease. No suspicious pulmonary nod ules are seen. No mediastinal lymphadenopathy. 2. Stable cardiomegaly and hiatal hernia. 3. Fluid density lesion in the left chest wall is somewhat decreased in size from prior exam, likely representing posttreatment change. ACT 112: Negative or not required by law. Electronically signed by: Benja Jackson M.D. 03/23/2022 10:57 AM
--- NOTE | 2022-03-23 11:11 | CT Scan Report ---
CT SCAN OF THE ABDOMEN AND PELVIS WITH IV CONTRAST CLINICAL HISTORY: Breast cancer. COMPARISON STUDY: Abdominal CT dated 10/09/2016. MRI of the lumbar spine dated 03/22/2022. TECHNIQUE: Following the IV administration of 86 cc of Optiray 300, CT scan of the abdomen and pelvi s is performed from the lung bases to the proximal femora. Images are reviewed in the axial, sagittal , and coronal planes. IV contrast was administered without complication. A dose lowering technique wa s utilized adhering to the principles of ALARA. FINDINGS: Lung bases: The tip of a central venous catheter terminates at the cavoatrial junction. The heart is top normal in size and without pericardial effusion. There is a small left pleural effusion with left basilar atelectasis. The right lung base appears clear. There is a moderate to large hiatal hernia. Liver: The contrast-enhanced liver is normal in size, contour, and attenuation. There is no intrahepa tic biliary ductal dilatation. The hepatic veins and portal veins are patent. Gallbladder: Surgically absent noting clips in the gallbladder fossa. Spleen: Normal in size and attenuation. Pancreas: Moderately atrophic and grossly unremarkable. Adrenal glands: Unremarkable. Kidneys: The contrast enhanced kidneys demonstrate mild cortical atrophy and are without hydronephros is. The kidneys enhance symmetrically. Abdominal vasculature: The abdominal aorta is normal in course and caliber noting moderate atheroscle rotic calcification. Bowel: No bowel obstruction is seen. Mild fecal retention is noted throughout the colon. The appendix is well-visualized and normal. Peritoneum: There is no intraperitoneal free air or abdominal ascites. Lymphadenopathy: None. Pelvic viscera: Evaluation of the pelvis is degraded by streak artifact from a right hip arthroplasty . The bladder is grossly unremarkable. The uterus is surgically absent. No adnexal lesion is seen. Skeletal structures: The skeletal structures are osteopenic. A right hip arthroplasty is in place. Th ere is evidence of multifocal osteoblastic metastatic disease. Lesions are seen throughout the imaged thoracolumbar spine, the sacrum, and the bony pelvis. The largest lesions are present within the rig ht aspect of the sacrum and the right iliac wing. No pathologic fracture is clearly seen. IMPRESSION: 1. There is extensive/multifocal osteoblastic metastatic disease. This corresponds to the findings se en on yesterday's MRI of the lumbar spine. This is new from older prior examinations. 2. No additional sites of metastatic disease are seen in the abdomen or pelvis. 3. Small left pleural effusion. 4. Moderate to large hiatal hernia. 5. Additional findings as above. ACT 112: Negative or not required by law. Electronically signed by: Trung Marques M.D. 03/23/2022 11:08 AM
[2022-03-23] MEDS: LORazepam 0.5 MG TAB PO PRN (21:59)
[2022-03-23] MEDS ORDERED: GADOBUTROL 65ML VIAL IV ONE (22:59)
[2022-03-24] MEDS: ACETAMINOPHEN 325 MG TAB PO SCH ×4 (05:53→23:12)
[2022-03-24] MEDS: oxyCODONE HCL IR 5 MG TAB (IMMEDIATE RELEASE) PO PRN ×3 (05:53→23:12)
[2022-03-24] MEDS: hydroCHLOROthiazide 25 MG TAB PO SCH (07:36)
[2022-03-24] MEDS: DULoxetine HCL 60 MG CAP PO SCH (07:37)
[2022-03-24] MEDS: PANTOprazole 40 MG TAB PO SCH (07:37)
[2022-03-24] MEDS: BUMETANIDE 1 MG TAB PO SCH ×2 (07:37→13:32)
[2022-03-24] MEDS: OLMESARTAN MEDOXOMIL 20 MG TAB PO SCH (07:37)
[2022-03-24] MEDS: HYDROXYCHLOROQUINE SULFATE 200 MG TAB PO SCH ×2 (07:38→21:08)
[2022-03-24] MEDS: predniSONE 5 MG TAB PO SCH (07:38)
[2022-03-24] MEDS: LIDOCAINE 5% 1 PATCH TD SCH (07:38)
[2022-03-24] MEDS: ENOXAPARIN INJ 40 MG/0.4 ML SYR SQ SCH (07:39)
--- NOTE | 2022-03-24 08:47 | Consultation ---
Date of Consultation March 24, 2022 Assessment & Plan (1) L4-L5 disc bulge: Dr. Everett will review films and patient tomorrow for more finite planning. Patient has a recurrent disc herniation at L4-5 on the right which is consistent with her right lower extremity symptoms. I will consult Dr. Montgomery of whom the patient is a known patient of for evaluation for pain management. Again I am unsure at this point in time given her new diagnosis of metastatic disease if she is a surgical candidate. We will discuss with the medical team. Patient also reports that there is discussion about pursuing interventional radiology at [facility] for her metastatic lesions. I would also consider thoracic MRI given her mid thoracic/scapular pain. History of Present Illness Reason for Consultation: HNP L4-5 on the right Attending Physician: Megan Beck MD History of Present Illness Is a very pleasant 71-year-old female with known history of left invasive ductal carcinoma status postlumpectomy who presents to the ER 2 days ago with worsening back pain. She also notes for the past 4 days she has had right lower extremity pain that became severe 4 days ago. She is had a prior laminectomy almost exactly [address] Madera at the L4-5 level. This resolved her symptoms at that point in time and she is done well since. She has pain rating down her right leg with any type of standing or ambulation. She is most comfortable in a seated position or when supine. She was taking oxycodone at home the last couple days because the pain was so severe. Typically she is an independent ambulator. Denies any bowel or bladder changes. She also notes mid thoracic pain. This is new Allergies Allergy/AdvReac Type Severity Reaction Status Date / Time No Known Allergies Allergy Verified 12/23/21 14:15 Home Medications Medication Instructions Recorded Confirmed Type cholecalciferol (vitamin D3) 125 5,000 unit PO QDL 04/25/18 12/23/21 History mcg (5,000 unit) capsule multivitamin with minerals 1 tab PO QDL 02/12/19 12/23/21 History hydroxychloroquine 200 mg tablet 200 mg PO BID 09/05/19 12/23/21 History (Plaquenil) prednisone 5 mg tablet 5 mg PO QAM 07/12/20 12/23/21 History Lift chair #1 ea 08/22/20 12/23/21 Rx magnesium oxide 400 mg PO DAILY PRN LEG CRAMPS 10/27/20 12/23/21 History omeprazole 20 mg tablet,delayed 20 mg PO QAM #90 tabs 04/09/21 12/23/21 Rx release duloxetine 60 mg capsule,delayed 60 mg PO DAILY #90 caps 07/07/21 12/23/21 Rx release calcium carbonate 600 mg calcium 600 mg PO DAILY 08/28/21 12/23/21 History (1,500 mg) tablet (Calcium) CPAP Machine #1 ea 09/08/21 12/23/21 Rx atorvastatin 10 mg tablet 10 mg PO DAILY #90 tabs 09/15/21 12/23/21 Rx celecoxib 200 mg capsule (Celebrex) 200 mg PO BID #180 caps 09/22/21 12/23/21 Rx olmesartan 20 1 tab PO QAM #90 tabs 10/27/21 12/23/21 Rx mg-hydrochlorothiazide 12.5 mg tablet potassium chloride 10 mEq 10 meq PO .COMPLEX 90 days #180 12/23/21 12/23/21 Rx tablet,extended release (Klor-Con) tabs bumetanide 2 mg tablet 2 mg PO .COMPLEX 30 days #60 tabs 12/24/21 Rx lorazepam 0.5 mg tablet 0.5 mg PO BID PRN Anxiety #60 tabs 02/02/22 Rx allopurinol 100 mg tablet 100 mg 03/23/22 History colchicine 0.6 mg tablet 0.6 mg PO 1XD 03/23/22 03/23/22 History Patient History Medical History Claudication of both lower extremities Depression GERD (gastroesophageal reflux disease) controlled Hiatal hernia Hyperlipidemia Hypertension Inflammatory polyarthritis Malignant neoplasm of upper-inner quadrant of left breast in female, estrogen receptor negative (04/24/19) Nocturnal hypoxemia Obesity, morbid, BMI 40.0-49.9 Rheumatoid arthritis on Plaquenil/prednisone 5mg daily chronic (mostly affects spine/hip/knee locations, no cervical issues) Spinal stenosis, lumbar region with neurogenic claudication Surgical History Difficult airway for intubation WITH BREAST SURGERY 05/2019 [facility] History of cholecystectomy History of colonoscopy History of esophagogastroduodenoscopy (EGD) History of lumpectomy of left breast partial History of open reduction and internal fixation (ORIF) procedure right wrist History of tonsillectomy and adenoidectomy History of total abdominal hysterectomy and bilateral salpingo-oophorectomy History of total hip arthroplasty RIGHT 10/2020 History of vascular access device present right chest Status post right foot surgery Family History Mother , age 77 CHF Family history of diabetes mellitus Hypertension Family history of cardiac disorder Diabetes type 2 Deep vein thrombosis Brother , age 49 colon cancer Family hx of colon cancer Colorectal cancer Grandfather Family hx of colon cancer PATERNAL Father , age 60 cardiac arrest Family history of cardiac disorder Myocardial infarction Sister Family history of malignant neoplasm Breast cancer, Onset Age: 50 Son Allergic rhinitis Coronary heart disease Son No problems noted. Denies family history of Ovarian cancer Social History Smoking Status: Never smoker Second Hand Exposure: No (FATHER SMOKED); Hx Alcohol Use: No Hx Substance Use: No Preferred Language: Arabic Communication Ability: Effective Hearing Ability: Normal Campus Security Director Required: No Beliefs That Will Affect Care: None marital status: / Current Living Situation: Alone Current Living Situation Comment: Lives alone at home. 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 [employer] How many Children do You have: 3 Feels Safe at Home: Yes Childhood Exposure to Second-Hand Smoke: Yes Diet Comment: low sodium caffeine: Yes during the past year weight has: other Dental Care, Regularly: Yes Physical Activity Frequency: 1-2 Times per Week Seatbelt Use: always Sunscreen Use: Yes (sometimes) Assistive Devices: Cane and Walker Review of Systems Review of Systems: All systems reviewed & are unremarkable except as noted in HPI & below Physical Exam Physical Exam: She is alert and oriented x3 She sitting on the edge of the bed eating breakfast in no acute distress Cooperative with exam She has a well-healed midline lumbar incision She has exquisite tenderness over the right sciatic notch Strength is 5/5 bilateral EHL, dorsiflexion, plantarflexion, quadriceps, hamstrings, hip flexors, hip abductor's and hip adductor's Negative logrolling bilaterally Negative tension signs bilaterally Results & Data ([facility]) Vital Signs (Past 12 Hours) Vital Signs Temp Pulse Resp BP Pulse Ox O2 Del Method 03/24/22 07:21 36.8 C 72 16 129/79 93 CPAP 03/23/22 21:58 36.8 C 91 H 20 130/83 92 Room Air Diagnostic Findings [place], [place] [phone] Magnetic Resonance Report Patient:SUSIE MONTES Admit Date:03/23/22 MR#:[id number] Address1:[address] [place] [address] Acct ID:[id number] Address2: Date:1950 [facility] Zip:[place] [address] Age:71 [facility] Sex:F [facility] 1-10 Att Phy:Megan Beck MD Diagnosis:back pain Xuan Phy:Katlin Nix CRNP Service Date:03/22/22 Fam Phy: Interpreting Phy:Trung Marques MDAdmit Phy:Sara Collins D.O. Ordering Phy:Anne Marie Garcia PA-C cc: ~ MRI OF THE LUMBAR SPINE WITHOUT IV CONTRAST CLINICAL HISTORY: Right lower extremity radiculopathy. Breast cancer. COMPARISON STUDY: MRI of the lumbar spine dated 02/05/2021. Abdominal CT dated 10/09/2016. TECHNIQUE: MRI of the lumbar spine is performed utilizing various T1 and T2- weighted sequences in the axial and sagittal planes. IV contrast was not administered for this examination. The examination is severely degraded by motion artifact. FINDINGS: Lumbar spine: Vertebral body height is maintained throughout the lumbar spine. There is minimal anterolisthesis at L4-L5. Minimal retrolisthesis is seen at L2- L3. There is mild hyperlordosis. Anterior and lateral marginal osteophytes are seen throughout. Hemangiomas are suggested in the bodies of T12, L2, L4, and L5. There is evidence of multifocal osseous metastatic disease. Lesions are seen within T12, L1, L3, L4, L5, and the sacrum involving S1 and S2. Metastatic lesions are also seen within the iliac wings. Multilevel degenerative endplate change is observed. There is no evidence of spondylolysis. The transverse and spinous processes are grossly intact. Intervertebral discs: Degenerative disc desiccation is seen throughout the lumbar spine. There is moderate loss of height throughout. Spinal cord: The visualized spinal cord is normal in morphology and signal intensity. The conus medullaris terminates at the L1-L2 interspace. The nerve roots of the cauda equina are not well assessed due to motion artifact. L1-L2: There is minimal posterior disc bulge. The central canal is clear. Facet arthropathy is of no consequence. The neural foramina appear patent. L2-L3: There is a large posterior disc osteophyte complex which abuts the transiting nerve roots. In conjunction with hypertrophy of the ligamentum flavum there is mild to moderate central canal stenosis with a minimum AP diameter of 6 mm. Lateral disc bulge contributes to bilateral subarticular stenosis. This may abut the exiting bilateral L2 nerve roots. In conjunction with facet arthropathy there is mild to moderate bilateral neural foraminal narrowing. L3-L4: There is broad-based posterior disc bulge. In conjunction with hypertrophy of the ligamentum flavum there is moderate central canal stenosis with a minimum AP diameter of 6 mm. Lateral disc bulge contributes to bilateral subarticular stenosis. In conjunction with facet arthropathy there is mild bilateral neural foraminal stenosis. L4-L5: There is broad-based posterior disc bulge. In conjunction with hypertrophy of the ligamentum flavum there is mild central canal stenosis with a minimum AP diameter of 8 mm. There is a large right lateral disc bulge which contributes to severe subarticular stenosis and impinges on the exiting right L4 nerve root. Only mild subarticular stenosis is seen on the left. In conjunction with facet arthropathy there is severe right and mild to moderate left neural foraminal stenosis. L5-S1: There is broad-based posterior disc bulge. This abuts the transiting nerve roots. No acquired compromise of the central canal is identified. Lateral disc bulge contributes to bilateral subarticular stenosis. This may abut the exiting bilateral L5 nerve roots. In conjunction with facet arthropathy there is mild bilateral neural foraminal stenosis. Sacrum: There is edema within the right aspect of the sacrum, likely related to metastatic lesions discussed above. No fracture is clearly seen. Soft tissues: There is fatty atrophy of the paraspinous musculature. Mild soft tissue edema overlies the right sacral metastases. The retroperitoneal structures are grossly unremarkable but incompletely evaluated. IMPRESSION: 1. Severely motion degraded examination. 2. There is evidence of multifocal metastatic disease throughout the lumbosacral spine and bony pelvis as detailed above. This is new from the 02/05/2021 examination. 3. Large right lateral disc bulge at L4-L5 which impinges on the exiting right L4 nerve root. 4. Spondylotic change as above with multilevel acquired compromise of the central canal. See discussion for detailed level by level analysis. Dictated: 03/23/2022 9:11 AM Transcribed: 03/23/2022 9:34 AM [place]om [id number] [email or web address] Electronically signed by: Trung Marques M.D. 03/23/2022 10:13 AM Dictated:03/23/22 0911 Transcribed: 03/23/22 0934
[2022-03-24 08:50] LABS: Basophils # (auto) 0.01 K/uL (0-0.2); Basophils % (auto) 0.3 %; Eosinophils # (auto) 0.21 K/uL (0-0.50); Eosinophils % (auto) 5.3 %; Hemoglobin 12.8 g/dl (12.0-16.0); Immature Granulocytes # (auto) 0.01 K/uL (0.00-0.02); Immature Granulocytes % (auto) 0.3 %; Lymphocytes # (auto) 0.68 K/uL (1.2-3.4); Lymphocytes % (auto) 17.1 %; Mean Corpuscular Hemoglobin 31.8 pg (25.0-34.0); Mean Corpuscular Hgb Conc 35.6 g/dL (32.0-36.0); Mean Corpuscular Volume 89.6 fL (80.0-100.0); Mean Platelet Volume 8.6 fL (9.4-12.3); Monocytes # (auto) 0.41 K/uL (0.24-0.82); Monocytes % (auto) 10.3 %; Neutrophils # (auto) 2.66 K/uL (1.4-6.5); Neutrophils % (auto) 66.7 %; Platelet Count 224 K/uL (130-400); RDW Coefficient of Variation 12.4 % (11.5-14.5); RDW Standard Deviation 41.1 fL (36.4-46.3); Red Blood Count 4.02 M/uL (3.93-5.22); White Blood Count 3.98 K/ul (4.8-10.8)
--- NOTE | 2022-03-24 08:52 | Magnetic Resonance Report ---
MR brain wo/w con CLINICAL HISTORY: evaluate for possible mets TECHNIQUE: Multiplanar and multisequence MR images of the brain were obtained prior to and following administration of gadolinium contrast. Comparison: None available at the time of this dictation. FINDINGS: No abnormal restricted diffusion is identified. Foci of T2 and FLAIR hyperintensity are noted in the paraventricular areas consistent with chronic small vessel ischemic disease. Ex vacuo ventriculomegal y and sulcal enlargement is noted compatible with diffuse encephalomalacia. No mass or abnormal enhan cement is seen. There is no mass effect or midline shift. There is no evidence of acute intraparenchy mal hemorrhage. No extra axial fluid collections are seen. The corpus callosum, pituitary gland, and cerebellar tonsils appear grossly unremarkable. Flow voids of the major intracranial arterial vessels are identified. The imaged portions of the para nasal sinuses, mastoid air cells, and orbits are unremarkable. No focal osseous lesions are seen in t his patient with history of diffuse metastatic disease. IMPRESSION: No acute abnormality and in particular no evidence of intracranial metastatic disease. ACT 112: Negative or not required by law. Electronically signed by: Benja Jackson M.D. 03/24/2022 8:50 AM
--- NOTE | 2022-03-24 08:54 | Hospitalist Progress Note ---
Date of Service March 24, 2022 Assessment & Plan (1) Spine metastasis: (2) Intractable low back pain: (3) Moderate obstructive sleep apnea: (4) Chronic diastolic CHF (congestive heart failure): (5) Hyperlipidemia: (6) Rheumatoid arthritis: (7) Hypertension: (8) Malignant neoplasm of upper-inner quadrant of left breast in female, estrogen receptor negative: (9) L4-L5 disc bulge: Plan 71yo female with history of left invasive ductal carcinoma s/p lumpectomy, chemotherapy presenting with acute progressive back pain. Found to have multiple lesions of the lumbar and sacral spine unfortunately concerning for metastatic disease. Intractable Back Pain -- two possible etiologies with metastatic disease and disc bulge as below -MRI lumbar spine showing evidence of multifocal metastatic disease throughout the lumbosacral spine and bony pelvis & large right lateral disc bulge at L4-L5 which impinges on the exiting right L4 nerve root -CT A/P showing extensive/multifocal osteoblastic metastatic disease, no additional sites of metastatic disease seen in the abdomen or pelvis. -CT chest showing interval significant worsening of diffuse osseous metastatic disease. No suspicious pulmonary nodules seen. No mediastinal lymphadenopathy. Stable cardiomegaly and hiatal hernia. Fluid density lesion in the left chest wall somewhat decreased in size from prior, likely posttreatment change. -Discussed current case with [facility] oncology Dr. Prakash who recommended: -Brain MRI with/without contrast showing no acute abnormality, in particular no evidence of intracranial metastatic disease -Biopsy of spinal lesions, which he will help set up as an outpatient with IR in [place] -Hold off on Rad Onc at this time as this might interfere with ability to biopsy -Patient's area of pain does correlate with finding of L4-L5 disc bulge - Ortho spine consulted -- recommend: -Consult pain management -Thoracic MRI -- image taken, read pending -Will discuss if patient is surgical candidate - PT/OT consults to eval for home needs -Pain control with Tylenol, Lidoderm and Oxycodone PRN Malignant neoplasm of upper-inner quadrant of left breast in female, estrogen receptor negative: -s/p Chemo, possible recurrence as above -Hematology/Oncology discussion as above -Likely metastatic disease as above Moderate obstructive sleep apnea: -Continue CPAP qHS Hyperlipidemia: -Continue Atorvastatin Rheumatoid arthritis: -Continue home Prednisone 5mg po qAM -Continue Plaquenil Hypertension: -Continue olmesartan/HCTZ -Continue to monitor DVT prophylaxis: Lovenox 40 mg SQ daily Diet: Heart healthy Dispo: MedSurg, pending results of imaging and consult CODE STATUS: DNR/DNI Admission and Anticipated Discharge Date Admission Date: March 23, 2022 Supervising Physician Co-Signing Physician Notes Resident Physician Supervision Note: I independently interviewed and examined the patient and verified the araujo history and physical, reviewed labs and image studies and agree with resident Dr. Larose findings and care plan. Subjective Seen sitting at bedside this AM. Eating breakfast. States that her pain is reasonably well controlled, but again has not been up to walk around yet today. Feels that her pain worsens whenever she is ambulating. Otherwise denying any other systemic symptoms including fever, chills, nausea, vomiting, headache, dizziness. No chest pain, palpitations, shortness of breath, abdominal pain. Review of Systems Review of Systems: Per HPI Physical Exam Physical Exam: GENERAL: A&Ox3. NAD. HEENT: EOMI. Moist mucous membranes. CHEST/LUNGS: CTAB A/P. No crackles, wheezes, rales, rhonchi. HEART: RRR. No m/g/r. No carotid bruits. MSK: TTP along lumbar spine and adjacent musculature. No cyanosis, no clubbing, no edema of extremities. SKIN: Warm and dry. No rashes or lesions. PSYCHIATRIC: Euthymic affect, no SI, no pressured speech, no hallucinations Results & Data Results & Data ([facility]) Vital Signs (Past 12 Hours) Vital Signs Temp Pulse Resp BP Pulse Ox O2 Del Method 03/24/22 07:21 36.8 C 72 16 129/79 93 CPAP 03/23/22 21:58 36.8 C 91 H 20 130/83 92 Room Air Resident Activity Tracking Resident Involvement: Resident Care Provided Care Provided: Adult Hospital Medicine
[2022-03-24 09:20] LABS: BUN Creatinine Ratio 21.3 (10-20); Calcium 9.6 mg/dl (8.5-10.1); Creatinine Clr Calc Pharmacy 49.6 ml/min; Est GFR (African American) 50.9 ml/min; Est GFR (Non-African American) 43.9 ml/min; Potassium 3.5 mmol/L (3.5-5.1)
[2022-03-24 09:22] LABS: Albumin Globulin Ratio 1.3 (0.9-2); BUN Creatinine Ratio 22.5 (10-20); Bilirubin,Total 0.7 mg/dl (0.2-1.0); Calcium 9.6 mg/dl (8.5-10.1); Creatinine Clr Calc Pharmacy 50.4 ml/min; Est GFR (African American) 51.9 ml/min; Est GFR (Non-African American) 44.8 ml/min; Globulin 3.1 gm/dl (2.5-4.0); Potassium 3.4 mmol/L (3.5-5.1); Total Protein 7.1 gm/dl (6.0-8.3)
[2022-03-24] MEDS: LORazepam 0.5 MG TAB PO PRN (11:43)
[2022-03-24] MEDS ORDERED: GADOBUTROL 65ML VIAL IV ONE (13:09)
--- NOTE | 2022-03-24 16:18 | Magnetic Resonance Report ---
MR thoracic spine wo/w con CLINICAL HISTORY: Thoracic back pain TECHNIQUE: Multiplanar sequences through the thoracic spine were obtained, without and with intraveno us contrast. Comparison: Comparison is made to CT chest abdomen pelvis 03/23/2022 FINDINGS: Extensive metastatic disease is seen in the thoracic spine and visualized cervical spine. There is a compression deformity of the T1 vertebral body with retropulsion of fragments into the spinal canal r esulting in mild canal stenosis. Multilevel degenerative changes are seen in the discs without signif icant canal or neuroforaminal stenosis. Partial visualization of expansile second rib lesion better d escribed in recent CT chest. The spinal canal and neural foramina are patent. The spinal ligaments are intact, without evidence of disruption or abnormal signal intensity. The spi nal cord is normal in signal intensity and there is no evidence of cord contusion. There is no eviden ce of an extradural, intradural, extramedullary or intramedullary lesion. Visualized soft tissues are normal. IMPRESSION: 1. Extensive metastatic disease in the bones. There is a pathologic fracture of T1 with retropulsion of fragments, which results in only mild canal stenosis. 2. Multilevel degenerative changes without significant canal or neural foraminal stenosis. ACT 112: Negative or not required by law. Electronically signed by: Benja Jackson M.D. 03/24/2022 4:17 PM
[2022-03-25] MEDS: ACETAMINOPHEN 325 MG TAB PO SCH ×3 (05:05→17:26)
[2022-03-25] MEDS: oxyCODONE HCL IR 5 MG TAB (IMMEDIATE RELEASE) PO PRN ×2 (05:06→17:26)
--- NOTE | 2022-03-25 07:03 | Hospitalist Progress Note ---
Date of Service March 25, 2022 Assessment & Plan (1) Spine metastasis: (2) Intractable low back pain: (3) Moderate obstructive sleep apnea: (4) Chronic diastolic CHF (congestive heart failure): (5) Hyperlipidemia: (6) Rheumatoid arthritis: (7) Hypertension: (8) Malignant neoplasm of upper-inner quadrant of left breast in female, estrogen receptor negative: (9) L4-L5 disc bulge: Plan 71yo female with history of left invasive ductal carcinoma s/p lumpectomy, chemotherapy presenting with acute progressive back pain. Found to have multiple lesions of the lumbar and sacral spine unfortunately concerning for metastatic disease. Intractable Back Pain -- two possible etiologies with metastatic disease and disc bulge as below -MRI lumbar spine showing evidence of multifocal metastatic disease throughout the lumbosacral spine and bony pelvis & large right lateral disc bulge at L4-L5 which impinges on the exiting right L4 nerve root -CT A/P showing extensive/multifocal osteoblastic metastatic disease, no additional sites of metastatic disease seen in the abdomen or pelvis. -CT chest showing interval significant worsening of diffuse osseous metastatic disease. No suspicious pulmonary nodules seen. No mediastinal lymphadenopathy. Stable cardiomegaly and hiatal hernia. Fluid density lesion in the left chest wall somewhat decreased in size from prior, likely posttreatment change. -Discussed current case with [facility] oncology Dr. Prakash who recommended: -Brain MRI with/without contrast showing no acute abnormality, in particular no evidence of intracranial metastatic disease -Biopsy of spinal lesions, which he will help set up as an outpatient with IR in [place] -Hold off on Rad Onc at this time as this might interfere with ability to biopsy -Patient's area of pain does correlate with finding of L4-L5 disc bulge - Ortho spine consulted -- recommend: -Consult pain management -Thoracic MRI -- Extensive metastatic disease in the bones. There is a pathologic fracture of T1 with retropulsion of fragments, which results in only mild canal stenosis. -Hesitant to recommend any surgical intervention in light of her clinical presentation.Will coordinate with medicine and oncology as to the best course of action - Pain management consult: - Continue Oxycodone 5mg for pain relief. - Gabapentin 100mg TID. She has previously taken with moderate pain relief. - Not a candidate for interventional procedures given spine metastasis. - Patient not likely candidate for surgery or procedures from Ortho/Pain Mgmt due to spine metastases - PT/OT recommending inpt rehab after DC -Pain control with Tylenol, Lidoderm and Oxycodone PRN Malignant neoplasm of upper-inner quadrant of left breast in female, estrogen receptor negative: -s/p Chemo, possible recurrence as above -Hematology/Oncology discussion as above -Likely metastatic disease as above Moderate obstructive sleep apnea: -Continue CPAP qHS Hyperlipidemia: -Continue Atorvastatin Rheumatoid arthritis: -Continue home Prednisone 5mg po qAM -Continue Plaquenil Hypertension: -Continue olmesartan/HCTZ -Continue to monitor DVT prophylaxis: Lovenox 40 mg SQ daily Diet: Heart healthy Dispo: MedSurg, pending results of imaging and consult CODE STATUS: DNR/DNI Admission and Anticipated Discharge Date Admission Date: March 23, 2022 Supervising Physician Co-Signing Physician Notes Resident Physician Supervision Note: I independently interviewed and examined the patient and verified the araujo history and physical, reviewed labs and image studies and agree with resident Dr. Larose findings and care plan. Subjective Seen at bedside this morning. She feels she is the same as prior days. Pain seems to be worse with ambulation she states she has not been moving around much but even walking to and from the bathroom exacerbates her pain. Denies nausea, vomiting, abdominal pain, fever, chills, chest pain, palpitations, shortness of breath, diarrhea. Review of Systems Review of Systems: Per HPI Physical Exam Physical Exam: GENERAL: A&Ox3. NAD. HEENT: EOMI. Moist mucous membranes. CHEST/LUNGS: CTAB A/P. No crackles, wheezes, rales, rhonchi. HEART: RRR. No m/g/r. No carotid bruits. MSK: TTP along lumbar spine and adjacent musculature. No cyanosis, no clubbing, no edema of extremities. SKIN: Warm and dry. No rashes or lesions. PSYCHIATRIC: Euthymic affect, no SI, no pressured speech, no hallucinations Results & Data Results & Data ([facility]) Vital Signs (Past 12 Hours) Vital Signs Temp Pulse Resp BP Pulse Ox O2 Del Method 03/25/22 06:59 36.5 C 73 16 130/82 91 CPAP 03/24/22 22:26 36.6 C 76 18 115/78 96 CPAP 03/24/22 20:50 Room Air Resident Activity Tracking Resident Involvement: Resident Care Provided Care Provided: Adult [facility] Medicine
[2022-03-25] MEDS: ENOXAPARIN INJ 40 MG/0.4 ML SYR SQ SCH (08:20)
[2022-03-25] MEDS: LIDOCAINE 5% 1 PATCH TD SCH (08:25)
[2022-03-25] MEDS: OLMESARTAN MEDOXOMIL 20 MG TAB PO SCH (08:25)
[2022-03-25] MEDS: hydroCHLOROthiazide 25 MG TAB PO SCH (08:25)
[2022-03-25] MEDS: BUMETANIDE 1 MG TAB PO SCH ×2 (08:25→12:15)
[2022-03-25] MEDS: PANTOprazole 40 MG TAB PO SCH (08:25)
[2022-03-25] MEDS: DULoxetine HCL 60 MG CAP PO SCH (08:26)
[2022-03-25] MEDS: predniSONE 5 MG TAB PO SCH (08:26)
[2022-03-25] MEDS: HYDROXYCHLOROQUINE SULFATE 200 MG TAB PO SCH ×2 (08:26→20:28)
[2022-03-25 08:34] LABS: Albumin Globulin Ratio 1.3 (0.9-2); Albumin Level 3.5 gm/dl (3.4-5.0); Bilirubin,Total 0.5 mg/dl (0.2-1.0); Calcium 9.2 mg/dl (8.5-10.1); Creatinine Clr Calc Pharmacy 48.8 ml/min; Est GFR (African American) 49.9 ml/min; Est GFR (Non-African American) 43.1 ml/min; Globulin 2.7 gm/dl (2.5-4.0); Potassium 3.4 mmol/L (3.5-5.1); Total Protein 6.2 gm/dl (6.0-8.3)
--- NOTE | 2022-03-25 09:38 | Pain Management Consultation ---
Date of Consultation March 25, 2022 Assessment & Plan (1) L4-L5 disc bulge: (2) Spine metastasis: (3) Intractable low back pain: Plan 1. Continue Oxycodone 5mg for pain relief. 2. I have added Gabapentin 100mg TID. She has previously taken with moderate pain relief. 3. Not a candidate for interventional procedures given spine metastasis. 4. Will follow up with patient tomorrow. History of Present Illness Reason for Consultation: Intractable back pain Attending Physician: Megan Beck MD History of Present Illness Mrs. Joe is a 71 year old female that is known to the [facility] for lumbar radiculopathy and sacroiliitis. She did respond well to lumbar epidural injection and SI joint injection last year. She did undergo L4- [address] Bautista 03/09/21 with relief of radicular symptoms. Patient has been experiencing increased back pain with radicular symptoms down the right leg in an L5 distribution. Found to have a large right sided disc bulge as well as multifocal metastatic disease. She does have a history of left sided invasive ductal carcinoma that required lumpectomy and chemotherapy. She is to undergo biopsy of the metastasis prior to radiation treatment. Currently she has Oxycodone 5mg ordered for pain which she does find mildly efficacious. She denies any bowel/bladder incontinence, saddle anesthesia, foot drop, falls. Case discussed with Dr. Kallie Montgomery Allergies Allergy/AdvReac Type Severity Reaction Status Date / Time No Known Allergies Allergy Verified 12/23/21 14:15 Home Medications Medication Instructions Recorded Confirmed Type cholecalciferol (vitamin D3) 125 5,000 unit PO QDL 04/25/18 12/23/21 History mcg (5,000 unit) capsule multivitamin with minerals 1 tab PO QDL 02/12/19 12/23/21 History hydroxychloroquine 200 mg tablet 200 mg PO BID 09/05/19 12/23/21 History (Plaquenil) prednisone 5 mg tablet 5 mg PO QAM 07/12/20 12/23/21 History Lift chair #1 ea 08/22/20 12/23/21 Rx magnesium oxide 400 mg PO DAILY PRN LEG CRAMPS 10/27/20 12/23/21 History omeprazole 20 mg tablet,delayed 20 mg PO QAM #90 tabs 04/09/21 12/23/21 Rx release duloxetine 60 mg capsule,delayed 60 mg PO DAILY #90 caps 07/07/21 12/23/21 Rx release calcium carbonate 600 mg calcium 600 mg PO DAILY 08/28/21 12/23/21 History (1,500 mg) tablet (Calcium) CPAP Machine #1 ea 09/08/21 12/23/21 Rx atorvastatin 10 mg tablet 10 mg PO DAILY #90 tabs 09/15/21 12/23/21 Rx celecoxib 200 mg capsule (Celebrex) 200 mg PO BID #180 caps 09/22/21 12/23/21 Rx olmesartan 20 1 tab PO QAM #90 tabs 10/27/21 12/23/21 Rx mg-hydrochlorothiazide 12.5 mg tablet potassium chloride 10 mEq 10 meq PO .COMPLEX 90 days #180 12/23/21 12/23/21 Rx tablet,extended release (Klor-Con) tabs bumetanide 2 mg tablet 2 mg PO .COMPLEX 30 days #60 tabs 12/24/21 Rx lorazepam 0.5 mg tablet 0.5 mg PO BID PRN Anxiety #60 tabs 02/02/22 Rx allopurinol 100 mg tablet 100 mg 03/23/22 History colchicine 0.6 mg tablet 0.6 mg PO 1XD 03/23/22 03/23/22 History Patient History Medical History Claudication of both lower extremities Depression GERD (gastroesophageal reflux disease) controlled Hiatal hernia Hyperlipidemia Hypertension Inflammatory polyarthritis Malignant neoplasm of upper-inner quadrant of left breast in female, estrogen receptor negative (04/24/19) Nocturnal hypoxemia Obesity, morbid, BMI 40.0-49.9 Rheumatoid arthritis on Plaquenil/prednisone 5mg daily chronic (mostly affects spine/hip/knee locations, no cervical issues) Spinal stenosis, lumbar region with neurogenic claudication Surgical History Difficult airway for intubation WITH BREAST SURGERY 05/2019 [facility] History of cholecystectomy History of colonoscopy History of esophagogastroduodenoscopy (EGD) History of lumpectomy of left breast partial History of open reduction and internal fixation (ORIF) procedure right wrist History of tonsillectomy and adenoidectomy History of total abdominal hysterectomy and bilateral salpingo-oophorectomy History of total hip arthroplasty RIGHT 10/2020 History of vascular access device present right chest Status post right foot surgery Family History Mother , age 77 CHF Family history of diabetes mellitus Hypertension Family history of cardiac disorder Diabetes type 2 Deep vein thrombosis Brother , age 49 colon cancer Family hx of colon cancer Colorectal cancer Grandfather Family hx of colon cancer PATERNAL Father , age 60 cardiac arrest Family history of cardiac disorder Myocardial infarction Sister Family history of malignant neoplasm Breast cancer, Onset Age: 50 Son Allergic rhinitis Coronary heart disease Son No problems noted. 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 In moderate pain with movement. HEAD/FACE: Normocephalic and atraumatic. EYES: No drainage or conjunctival injection. ENT: Nose without bleeding or discharge. Oral mucosa moist. NECK: Full ROM without apparent pain. No swelling or masses noted. RESPIRATORY: Patient with unlabored breathing. No signs of respiratory distress. CHEST/AXILLA: Chest movement symmetrical. No deformities noted. ABDOMEN/GI: No distension BACK: Lumbosacral tenderness. No muscle spasm noted. SKIN: [place], warm and dry. No rash noted. MS/EXTREMITY: No swelling, no deformities. Moving extremities appropriately. NEURO: Alert and appears oriented. Speech is fluent. Cranial Nerves are grossly intact. PSYCH: Alert, pleasant, affect is calm Results (Pain [facility]) Diagnostic Review MRI Findings: MR thoracic spine wo/w con CLINICAL HISTORY: Thoracic back pain TECHNIQUE: Multiplanar sequences through the thoracic spine were obtained, without and with intravenous contrast. Comparison: Comparison is made to CT chest abdomen pelvis 03/23/2022 FINDINGS: Extensive metastatic disease is seen in the thoracic spine and visualized cervical spine. There is a compression deformity of the T1 vertebral body with retropulsion of fragments into the spinal canal resulting in mild canal stenosis. Multilevel degenerative changes are seen in the discs without significant canal or neuroforaminal stenosis. Partial visualization of expansile second rib lesion better described in recent CT chest. The spinal canal and neural foramina are patent. The spinal ligaments are intact, without evidence of disruption or abnormal signal intensity. The spinal cord is normal in signal intensity and there is no evidence of cord contusion. There is no evidence of an extradural, intradural, extramedullary or intramedullary lesion. Visualized soft tissues are normal. IMPRESSION: 1. Extensive metastatic disease in the bones. There is a pathologic fracture of T1 with retropulsion of fragments, which results in only mild canal stenosis. 2. Multilevel degenerative changes without significant canal or neural foraminal stenosis. ACT 112: Negative or not required by law. Electronically signed by: Benja Jackson M.D. 03/24/2022 4:17 PM MR brain wo/w con CLINICAL HISTORY: evaluate for possible mets TECHNIQUE: Multiplanar and multisequence MR images of the brain were obtained prior to and following administration of gadolinium contrast. Comparison: None available at the time of this dictation. FINDINGS: No abnormal restricted diffusion is identified. Foci of T2 and FLAIR hyperintensity are noted in the paraventricular areas consistent with chronic small vessel ischemic disease. Ex vacuo ventriculomegaly and sulcal enlargement is noted compatible with diffuse encephalomalacia. No mass or abnormal enhan cement is seen. There is no mass effect or midline shift. There is no evidence of acute intraparenchymal hemorrhage. No extra axial fluid collections are seen. The corpus callosum, pituitary gland, and cerebellar tonsils appear grossly unremarkable. Flow voids of the major intracranial arterial vessels are identified. The imaged portions of the paranasal sinuses, mastoid air cells, and orbits are unremarkable. No focal osseous lesions are seen in this patient with history of diffuse metastatic disease. IMPRESSION: No acute abnormality and in particular no evidence of intracranial metastatic disease. ACT 112: Negative or not required by law. Electronically signed by: Benja Jackson M.D. 03/24/2022 8:50 AM MRI OF THE LUMBAR SPINE WITHOUT IV CONTRAST CLINICAL HISTORY: Right lower extremity radiculopathy. Breast cancer. COMPARISON STUDY: MRI of the lumbar spine dated 02/05/2021. Abdominal CT dated 10/09/2016. TECHNIQUE: MRI of the lumbar spine is performed utilizing various T1 and T2- weighted sequences in the axial and sagittal planes. IV contrast was not administered for this examination. The examination is severely degraded by motion artifact. FINDINGS: Lumbar spine: Vertebral body height is maintained throughout the lumbar spine. There is minimal anterolisthesis at L4-L5. Minimal retrolisthesis is seen at L2- L3. There is mild hyperlordosis. Anterior and lateral marginal osteophytes are seen throughout. Hemangiomas are suggested in the bodies of T12, L2, L4, and L5. There is evidence of multifocal osseous metastatic disease. Lesions are seen within T12, L1, L3, L4, L5, and the sacrum involving S1 and S2. Metastatic lesions are also seen within the iliac wings. Multilevel degenerative endplate change is observed. There is no evidence of spondylolysis. The transverse and spinous processes are grossly intact. Intervertebral discs: Degenerative disc desiccation is seen throughout the lumbar spine. There is moderate loss of height throughout. Spinal cord: The visualized spinal cord is normal in morphology and signal intensity. The conus medullaris terminates at the L1-L2 interspace. The nerve roots of the cauda equina are not well assessed due to motion artifact. L1-L2: There is minimal posterior disc bulge. The central canal is clear. Facet arthropathy is of no consequence. The neural foramina appear patent. L2-L3: There is a large posterior disc osteophyte complex which abuts the transiting nerve roots. In conjunction with hypertrophy of the ligamentum flavum there is mild to moderate central canal stenosis with a minimum AP diameter of 6 mm. Lateral disc bulge contributes to bilateral subarticular stenosis. This may abut the exiting bilateral L2 nerve roots. In conjunction with facet arthropathy there is mild to moderate bilateral neural foraminal narrowing. L3-L4: There is broad-based posterior disc bulge. In conjunction with hypertrophy of the ligamentum flavum there is moderate central canal stenosis with a minimum AP diameter of 6 mm. Lateral disc bulge contributes to bilateral subarticular stenosis. In conjunction with facet arthropathy there is mild bilateral neural foraminal stenosis. L4-L5: There is broad-based posterior disc bulge. In conjunction with hypertrophy of the ligamentum flavum there is mild central canal stenosis with a minimum AP diameter of 8 mm. There is a large right lateral disc bulge which contributes to severe subarticular stenosis and impinges on the exiting right L4 nerve root. Only mild subarticular stenosis is seen on the left. In conjunction with facet arthropathy there is severe right and mild to moderate left neural foraminal stenosis. L5-S1: There is broad-based posterior disc bulge. This abuts the transiting nerve roots. No acquired compromise of the central canal is identified. Lateral disc bulge contributes to bilateral subarticular stenosis. This may abut the exiting bilateral L5 nerve roots. In conjunction with facet arthropathy there is mild bilateral neural foraminal stenosis. Sacrum: There is edema within the right aspect of the sacrum, likely related to metastatic lesions discussed above. No fracture is clearly seen. Soft tissues: There is fatty atrophy of the paraspinous musculature. Mild soft tissue edema overlies the right sacral metastases. The retroperitoneal structures are grossly unremarkable but incompletely evaluated. IMPRESSION: 1. Severely motion degraded examination. 2. There is evidence of multifocal metastatic disease throughout the lumbosacral spine and bony pelvis as detailed above. This is new from the 02/05/2021 examinat ion. 3. Large right lateral disc bulge at L4-L5 which impinges on the exiting right L4 nerve root. 4. Spondylotic change as above with multilevel acquired compromise of the central canal. See discussion for detailed level by level analysis. Dictated: 03/23/2022 9:11 AM Transcribed: 03/23/2022 9:34 AM [place] [id number] [email or web address] Electronically signed by: Trung Marques M.D. 03/23/2022 10:[address] Findings: CT chest diagnostic w con CLINICAL HISTORY: metastatic disease. History of breast cancer. Lesions on the lumbar spine and recent MRI. TECHNIQUE: Multidetector row helical CT of the chest was performed with intravenous contrast. Coronal and sagittal reformations were obtained. Automated dose lowering techniques and/or adjustment according to patient size were utilized for this exam. CT DOSE: 1674.76 mGycm Comparison: Comparison is made to CT chest 09/25/2019 and MRI lumbar spine 04/22/2022 FINDINGS: Lungs and pleura: There is atelectasis in the left lung base likely owing to adjacent hiatal hernia. No suspicious pulmonary nodules are seen. Heart and pericardium: Cardiomegaly is seen with biatrial enlargement. Vessels: Moderate atherosclerotic changes in the aorta and coronary arteries. Mediastinum and gail: Unremarkable. Chest wall and lower neck: There is a fluid density left chest wall lesion with an internal calcification, somewhat decreased in size from prior exam. Abdomen: A hiatal hernia is seen. Please see CT abdomen pelvis performed same day for findings below the diaphragm. Bones: Extensive osseous metastatic disease is seen in the thoracic spine, shoulders, scapula, and ribs. In particular, the left second rib has a expansile, mild in appearance with a small soft tissue component. These findings are significantly more extensive than on the prior exam. IMPRESSION: 1. Interval significant worsening of diffuse osseous metastatic disease. No suspicious pulmonary nodules are seen. No mediastinal lymphadenopathy. 2. Stable cardiomegaly and hiatal hernia. 3. Fluid density lesion in the left chest wall is somewhat decreased in size from prior exam, likely representing posttreatment change. ACT 112: Negative or not required by law. Electronically signed by: Benja Jackson M.D. 03/23/2022 10:[address] SCAN OF THE ABDOMEN AND PELVIS WITH IV CONTRAST CLINICAL HISTORY: Breast cancer. COMPARISON STUDY: Abdominal CT dated 10/09/2016. MRI of the lumbar spine dated 03/22/2022. TECHNIQUE: Following the IV administration of 86 cc of Optiray 300, CT scan of the abdomen and pelvis is performed from the lung bases to the proximal femora. Images are reviewed in the axial, sagittal, and coronal planes. IV contrast was administered without complication. A dose lowering technique was utilized adhering to the principles of ALARA. FINDINGS: Lung bases: The tip of a central venous catheter terminates at the cavoatrial junction. The heart is top normal in size and without pericardial effusion. There is a small left pleural effusion with left basilar atelectasis. The right lung base appears clear. There is a moderate to large hiatal hernia. Liver: The contrast-enhanced liver is normal in size, contour, and attenuation. There is no intrahepatic biliary ductal dilatation. The hepatic veins and portal veins are patent. Gallbladder: Surgically absent noting clips in the gallbladder fossa. Spleen: Normal in size and attenuation. Pancreas: Moderately atrophic and grossly unremarkable. Adrenal glands: Unremarkable. Kidneys: The contrast enhanced kidneys demonstrate mild cortical atrophy and are without hydronephrosis. The kidneys enhance symmetrically. Abdominal vasculature: The abdominal aorta is normal in course and caliber noting moderate atherosclerotic calcification. Bowel: No bowel obstruction is seen. Mild fecal retention is noted throughout the colon. The appendix is well-visualized and normal. Peritoneum: There is no intraperitoneal free air or abdominal ascites. Lymphadenopathy: None. Pelvic viscera: Evaluation of the pelvis is degraded by streak artifact from a right hip arthroplasty. The bladder is grossly unremarkable. The uterus is surgically absent. No adnexal lesion is seen. Skeletal structures: The skeletal structures are osteopenic. A right hip arthroplasty is in place. There is evidence of multifocal osteoblastic metastatic disease. Lesions are seen throughout the imaged thoracolumbar spine, the sacrum, and the bony pelvis. The largest lesions are present within the right aspect of the sacrum and the right iliac wing. No pathologic fracture is clearly seen. IMPRESSION: 1. There is extensive/multifocal osteoblastic metastatic disease. This corresponds to the findings seen on yesterday's MRI of the lumbar spine. This is new from older prior examinations. 2. No additional sites of metastatic disease are seen in the abdomen or pelvis. 3. Small left pleural effusion. 4. Moderate to large hiatal hernia. 5. Additional findings as above. ACT 112: Negative or not required by law. Electronically signed by: Trung Marques M.D. 03/23/2022 11:08 AM
--- NOTE | 2022-03-25 10:33 | Orthopedic Progress Note ---
Date of Service March 25, 2022 Assessment & Plan (1) L4-L5 disc bulge: Plan: Assessment multiple levels of metastatic disease throughout the thoracolumbar spine. Plan at this time she has upper thoracic back pain undoubtedly related to the pathologic fractures. Her right leg symptoms most like related to the L4-L5 instability and neural compression. Clearly we are hesitant to recommend any surgical intervention in light of her clinical presentation. I will c oordinate with medicine and oncology as to the best course of action. Patient stands agrees. Admission and Anticipated Discharge Date Admission Date: March 23, 2022 Subjective Upper thoracic back pain with severe right leg pain. The right leg pain is tolerable when sitting and lying supine. It markedly limits her ability to stand and ambulate. Physical Exam Physical Exam: On exam she sitting in the chair by the bed. She is comfortable. Her [id number] is on the phone during our exam discussion. She exhibits a negative logroll bilaterally. She has excellent strength detailed testing. Sensory is intact. Results & Data ([facility]) Vital Signs (Past 12 Hours) Vital Signs Temp Pulse Resp BP Pulse Ox O2 Del Method 03/25/22 06:59 36.5 C 73 16 130/82 91 CPAP
[2022-03-25] MEDS: GABAPENTIN 100 MG CAP PO SCH ×3 (12:15→20:28)
--- NOTE | 2022-03-25 12:49 | XRay Report ---
XR lumbar spine 2-3V CLINICAL HISTORY: standing films, back and leg pain TECHNIQUE: 3 views of the lumbar spine were obtained. Comparison: Comparison is made to lumbar spine radiographs 03/09/2021 FINDINGS: There is no evidence of an acute fracture. Degenerative changes are seen in the lumbar spine. Right h ip arthroplasty is seen. Grade 1 anterolisthesis of L4-L5 is seen. No soft tissue abnormality is seen . IMPRESSION: No acute fracture or subluxation. ACT 112: Negative or not required by law. Electronically signed by: Benja Jackson M.D. 03/25/2022 12:48 PM
[2022-03-25] MEDS: HEPARIN 100 UNIT/ML 5ML FLUSH FLUSH PRN (13:39)
[2022-03-26] MEDS: oxyCODONE HCL IR 5 MG TAB (IMMEDIATE RELEASE) PO PRN ×5 (00:31→21:47)
[2022-03-26] MEDS: ACETAMINOPHEN 325 MG TAB PO SCH ×4 (00:31→17:27)
[2022-03-26] MEDS ORDERED: POTASSIUM CHLORIDE CRTAB 20 MEQ TABCR PO STA (08:42)
[2022-03-26] MEDS: predniSONE 5 MG TAB PO SCH (08:43)
[2022-03-26] MEDS: PANTOprazole 40 MG TAB PO SCH (08:43)
[2022-03-26] MEDS: hydroCHLOROthiazide 25 MG TAB PO SCH (08:44)
[2022-03-26] MEDS: OLMESARTAN MEDOXOMIL 20 MG TAB PO SCH (08:44)
[2022-03-26] MEDS: DULoxetine HCL 60 MG CAP PO SCH (08:45)
[2022-03-26] MEDS: HYDROXYCHLOROQUINE SULFATE 200 MG TAB PO SCH ×2 (08:45→21:44)
[2022-03-26] MEDS: GABAPENTIN 100 MG CAP PO SCH ×3 (08:45→21:44)
[2022-03-26] MEDS: LIDOCAINE 5% 1 PATCH TD SCH (08:46)
[2022-03-26] MEDS: ENOXAPARIN INJ 40 MG/0.4 ML SYR SQ SCH (08:47)
[2022-03-26] MEDS: BUMETANIDE 1 MG TAB PO SCH ×2 (08:58→11:47)
--- NOTE | 2022-03-26 11:02 | Pain Management Progress Note ---
Date of Service March 26, 2022 Assessment & Plan (1) L4-L5 disc bulge: (2) Spine metastasis: (3) Intractable low back pain: Plan 1. Continue Oxycodone 5mg for pain relief. 2. Continue Gabapentin 100mg TID as it has controlled radicular pain. 3. Not a candidate for interventional procedures given spine metastasis. 4. If Oxycodone is not effective could consider initiating on OxyContin. 5. Will sign off on the patient. Please contact with any questions or concerns. Admission and Anticipated Discharge Date Admission Date: March 25, 2022 Subjective Mrs. Joe is a 71 year old female that is reporting moderate pain relief since yesterday. She is tolerating Oxycodone 5mg and has taken it 4 times in the last 24 hours. She denies any side effects to the medication. There is some right shoulder and right hip pain but it is mild. Has been able to ambulate around her room. Able to move bowel yesterday. She is pleased with her current pain relief and does not request any changes. Physical Exam Physical Exam: GENERAL: This is a 71 year old female that is sitting on the side of the hospital bed eating her breakfast. Does not appear in acute distress. HEAD/FACE: Normocephalic and atraumatic. EYES: No drainage or conjunctival injection. ENT: Nose without bleeding or discharge. Oral mucosa moist. NECK: Full ROM without apparent pain. No swelling or masses noted. RESPIRATORY: Patient with unlabored breathing. No signs of respiratory distress. CHEST/AXILLA: Chest movement symmetrical. No deformities noted. ABDOMEN/GI: No distension BACK: No midline, facet joint, or SI joint tenderness. Moderate tenderness along the right superior gluteal region. SKIN: [place], warm and dry. No rash noted. MS/EXTREMITY: No swelling, no deformities. Moving extremities appropriately. NEURO: Alert and appears oriented. Speech is fluent. Cranial Nerves are grossly intact. PSYCH: Alert, pleasant, affect is calm
[2022-03-26] MEDS: FAMOTIDINE 20 MG TAB PO SCH (18:24)
--- NOTE | 2022-03-26 18:32 | Hospitalist Progress Note ---
Date of Service March 26, 2022 Assessment & Plan (1) Spine metastasis: (2) Intractable low back pain: (3) Moderate obstructive sleep apnea: (4) Chronic diastolic CHF (congestive heart failure): (5) Hyperlipidemia: (6) Rheumatoid arthritis: (7) Hypertension: (8) Malignant neoplasm of upper-inner quadrant of left breast in female, estrogen receptor negative: (9) L4-L5 disc bulge: Plan 71yo female with history of left invasive ductal carcinoma s/p lumpectomy, chemotherapy presenting with acute progressive back pain. Found to have multiple lesions of the lumbar and sacral spine unfortunately concerning for metastatic disease. Intractable Back Pain -- two possible etiologies with metastatic disease and disc bulge as below -MRI lumbar spine showing evidence of multifocal metastatic disease throughout the lumbosacral spine and bony pelvis & large right lateral disc bulge at L4-L5 which impinges on the exiting right L4 nerve root -CT A/P showing extensive/multifocal osteoblastic metastatic disease, no additional sites of metastatic disease seen in the abdomen or pelvis. -CT chest showing interval significant worsening of diffuse osseous metastatic disease. No suspicious pulmonary nodules seen. No mediastinal lymphadenopathy. Stable cardiomegaly and hiatal hernia. Fluid density lesion in the left chest wall somewhat decreased in size from prior, likely posttreatment change. -Discussed current case with [facility] oncology Dr. Prakash who recommended: -Brain MRI with/without contrast showing no acute abnormality, in particular no evidence of intracranial metastatic disease -Biopsy of spinal lesions, which he will help set up as an outpatient with IR in [place] -Hold off on Rad Onc at this time as this might interfere with ability to biopsy -Patient's area of pain does correlate with finding of L4-L5 disc bulge - Ortho spine consulted -- recommend: -Consult pain management -Thoracic MRI -- Extensive metastatic disease in the bones. There is a pathologic fracture of T1 with retropulsion of fragments, which results in only mild canal stenosis. -Hesitant to recommend any surgical intervention in light of her clinical presentation.Will coordinate with medicine and oncology as to the best course of action - Pain management consult: - Continue Oxycodone 5mg for pain relief. - Gabapentin 100mg TID. She has previously taken with moderate pain relief. - Not a candidate for interventional procedures given spine metastasis. - Patient not likely candidate for surgery or procedures from Ortho/Pain Mgmt due to spine metastases - PT/OT following -Pain control with Tylenol, Lidoderm and Oxycodone PRN - anticipate d/c home with home PT in am. Rx for PT given to patient. Rx of oxycodone sent to [facility]. Malignant neoplasm of upper-inner quadrant of left breast in female, estrogen receptor negative: -s/p Chemo, possible recurrence as above -Hematology/Oncology discussion as above -Likely metastatic disease as above Moderate obstructive sleep apnea: -Continue CPAP qHS Hyperlipidemia: -Continue Atorvastatin Rheumatoid arthritis: -Continue home Prednisone 5mg po qAM -Continue Plaquenil Hypertension: -Continue olmesartan/HCTZ -Continue to monitor DVT prophylaxis: Lovenox 40 mg SQ daily Diet: Heart healthy Dispo: MedSurg, pending results of imaging and consult CODE STATUS: DNR/DNI Admission and Anticipated Discharge Date Admission Date: March 25, 2022 Supervising Physician Co-Signing Physician Notes . Subjective back pain improving with utilization of oxycodone. able to walk with walker upto the restroom family at bedside. upper back pain is better. no chest pain, shortness of breath. Physical Exam Constitutional: WD/WN, vitals as above (comfortable in bed) Respiratory: normal respiratory effort, lungs clear to auscultation Cardiovascular: RRR, no murmur, no edema Psychiatric: A+Ox3, euthymic affect Results & Data Results & Data ([facility]) Vital Signs (Past 12 Hours) Vital Signs Temp Pulse Resp BP Pulse Ox O2 Del Method 03/26/22 15:26 36.8 C 83 16 94/57 L 92 Room Air 03/26/22 07:33 36.5 C 66 16 105/67 95 Room Air
[2022-03-27] MEDS: ACETAMINOPHEN 325 MG TAB PO SCH ×4 (00:16→17:58)
[2022-03-27] MEDS: oxyCODONE HCL IR 5 MG TAB (IMMEDIATE RELEASE) PO PRN ×4 (05:54→17:58)
[2022-03-27] MEDS: DULoxetine HCL 60 MG CAP PO SCH (08:39)
[2022-03-27] MEDS: hydroCHLOROthiazide 25 MG TAB PO SCH (08:40)
[2022-03-27] MEDS: ENOXAPARIN INJ 40 MG/0.4 ML SYR SQ SCH (08:40)
[2022-03-27] MEDS: predniSONE 5 MG TAB PO SCH (08:40)
[2022-03-27] MEDS: BUMETANIDE 1 MG TAB PO SCH ×2 (08:40→12:00)
[2022-03-27] MEDS: LIDOCAINE 5% 1 PATCH TD SCH (08:40)
[2022-03-27] MEDS: FAMOTIDINE 20 MG TAB PO SCH (08:40)
[2022-03-27] MEDS: GABAPENTIN 100 MG CAP PO SCH ×3 (08:40→21:29)
[2022-03-27] MEDS: OLMESARTAN MEDOXOMIL 20 MG TAB PO SCH (08:40)
[2022-03-27] MEDS: HYDROXYCHLOROQUINE SULFATE 200 MG TAB PO SCH ×2 (08:40→21:29)
[2022-03-27] MEDS: PANTOprazole 40 MG TAB PO SCH (08:41)
--- NOTE | 2022-03-27 16:52 | Family Medicine Progress Note ---
Date of Service March 27, 2022 Assessment & Plan (1) Spine metastasis: (2) Intractable low back pain: (3) Moderate obstructive sleep apnea: (4) Chronic diastolic CHF (congestive heart failure): (5) Hyperlipidemia: (6) Rheumatoid arthritis: (7) Hypertension: (8) Malignant neoplasm of upper-inner quadrant of left breast in female, estrogen receptor negative: (9) L4-L5 disc bulge: Plan 71yo female with history of left invasive ductal carcinoma s/p lumpectomy, chemotherapy presenting with acute progressive back pain. Found to have multiple lesions of the lumbar and sacral spine unfortunately concerning for metastatic disease. Intractable Back Pain -- two possible etiologies with metastatic disease and disc bulge as below -MRI lumbar spine showing evidence of multifocal metastatic disease throughout the lumbosacral spine and bony pelvis & large right lateral disc bulge at L4-L5 which impinges on the exiting right L4 nerve root -CT A/P showing extensive/multifocal osteoblastic metastatic disease, no additional sites of metastatic disease seen in the abdomen or pelvis. -CT chest showing interval significant worsening of diffuse osseous metastatic disease. No suspicious pulmonary nodules seen. No mediastinal lymphadenopathy. Stable cardiomegaly and hiatal hernia. Fluid density lesion in the left chest wall somewhat decreased in size from prior, likely posttreatment change. -Discussed current case with [facility] oncology Dr. Prakash who recommended: -Brain MRI with/without contrast showing no acute abnormality, in particular no evidence of intracranial metastatic disease -Biopsy of spinal lesions, which he will help set up as an outpatient with IR in [place] -Hold off on Rad Onc at this time as this might interfere with ability to biopsy -Patient's area of pain does correlate with finding of L4-L5 disc bulge - Ortho spine consulted -- recommend: -Consult pain management -Thoracic MRI -- Extensive metastatic disease in the bones. There is a pathologic fracture of T1 with retropulsion of fragments, which results in only mild canal stenosis. -Hesitant to recommend any surgical intervention in light of her clinical presentation.Will coordinate with medicine and oncology as to the best course of action - Pain management consult: - Continue Oxycodone 5mg for pain relief. - Gabapentin 100mg TID. She has previously taken with moderate pain relief. This can be titrated; side effects discussed. - Not a candidate for interventional procedures given spine metastasis. - Patient not likely candidate for surgery or procedures from Ortho/Pain Mgmt due to spine metastases - PT/OT following -Pain control with Tylenol, Lidoderm and Oxycodone PRN - anticipate d/c home with home PT tomorrow, 03/20/2022. Rx for PT given to patient. Rx of oxycodone sent to [facility]. Malignant neoplasm of upper-inner quadrant of left breast in female, estrogen receptor negative: -s/p Chemo, possible recurrence as above -Hematology/Oncology discussion as above -Likely metastatic disease as above Moderate obstructive sleep apnea: -Continue CPAP qHS Hyperlipidemia: -Continue Atorvastatin Rheumatoid arthritis: -Continue home Prednisone 5mg po qAM -Continue Plaquenil Hypertension: -Continue olmesartan/HCTZ -Continue to monitor DVT prophylaxis: Lovenox 40 mg SQ daily Diet: Heart healthy Dispo: MedSurg, pending results of imaging and consult CODE STATUS: DNR/DNI Admission and Anticipated Discharge Date Admission Date: March 25, 2022 Subjective Yamilet notes some improvement in her pain, although she is leery of discharge today as there is no one home. Her overall plan is to return home to her son's house, although family is at a town this weekend, returning tomorrow. Physical Exam Physical Exam: Pleasant. Alert and oriented. Seated in the bedside chair. Eyes: PERRL, conjunctivae normal, anicteric sclerae ENMT: external ear and nose normal, oropharynx normal Respiratory: normal respiratory effort, lungs clear to auscultation Cardiovascular: RRR, no murmur, no edema Musculoskeletal: Pain right scapular border, thoracic spine, right paraspinal area Skin: no rashes, warm and dry Psychiatric: A+Ox3, euthymic affect Results & Data ([facility]) Vital Signs (Past 12 Hours) Vital Signs Temp Pulse Resp BP Pulse Ox O2 Del Method 03/27/22 15:21 36.9 C 87 18 107/64 94 Room Air 03/27/22 07:53 36.4 C L 61 18 135/77 94 Room Air Laboratory Results No new lab data today
[2022-03-27] MEDS: HEPARIN 100 UNIT/ML 5ML FLUSH FLUSH PRN (17:14)
[2022-03-27 22:25] VITALS: O2SAT 96
[2022-03-28] MEDS: ACETAMINOPHEN 325 MG TAB PO SCH ×3 (00:12→12:22)
[2022-03-28] MEDS: LIDOCAINE 5% 1 PATCH TD SCH (08:20)
[2022-03-28] MEDS: oxyCODONE HCL IR 5 MG TAB (IMMEDIATE RELEASE) PO PRN ×2 (08:20→14:11)
[2022-03-28] MEDS: ENOXAPARIN INJ 40 MG/0.4 ML SYR SQ SCH (08:21)
[2022-03-28] MEDS: OLMESARTAN MEDOXOMIL 20 MG TAB PO SCH (09:23)
[2022-03-28] MEDS: BUMETANIDE 1 MG TAB PO SCH ×2 (09:23→12:22)
[2022-03-28] MEDS: predniSONE 5 MG TAB PO SCH (09:23)
[2022-03-28] MEDS: FAMOTIDINE 20 MG TAB PO SCH (09:23)
[2022-03-28] MEDS: HYDROXYCHLOROQUINE SULFATE 200 MG TAB PO SCH (09:24)
[2022-03-28] MEDS: PANTOprazole 40 MG TAB PO SCH (09:24)
[2022-03-28] MEDS: DULoxetine HCL 60 MG CAP PO SCH (09:24)
[2022-03-28] MEDS: GABAPENTIN 100 MG CAP PO SCH ×2 (09:24→14:11)
[2022-03-28] MEDS: hydroCHLOROthiazide 25 MG TAB PO SCH (09:24)
--- NOTE | 2022-03-28 13:22 | Discharge Summary ---
Date of Service March 28, 2022 Admission HPI Per Admitting Provider Yamilet Joe is a pleasant 71yo female with history of high-grade triple negative invasive ductal carcinoma of the left breast diagnosed 04/2019 s/p lumpectomy and left axillary sentinel node biopsy, s/p chemotherapy with taxotere and cyclophosphamide completed 08/17/2019. Patient has been cancer free. She presents with severe back pain in the right lumbar with radiation down the right leg one day. Difficulty walking secondary to pain. She was unable to walk up the stairs in her home. She denies fever, chills, fall, trauma. Denies numbness/tingling or weakness of the lower extremities. Denies bowel or bladder incontinence. Imaging obtained in the ER suggestive of metastatic disease involving the lumbar and sacral spine spine. Patient is aware of these findings and is tearful during exam. Discharge Data Consultations 03/23/22 02:31 ED Decision to Admit Stat 03/23/22 15:33 Consult Orthopedic Surgery Routine 03/24/22 08:43 Consult Pain Management Routine Hospital Course (1) Spine metastasis: (2) Intractable low back pain: (3) Moderate obstructive sleep apnea: (4) Chronic diastolic CHF (congestive heart failure): (5) Hyperlipidemia: (6) Rheumatoid arthritis: (7) Hypertension: (8) Malignant neoplasm of upper-inner quadrant of left breast in female, est rogen receptor negative: (9) L4-L5 disc bulge: Plan EXAM On the day of discharge, the patient was seated in the bedside chair. She had no new complaints. She was getting reasonably good pain control with oxycodone 5 mg, and side effects were minimal if at all. We did discuss the prevention of constipation when taking medication such as oxycodone. We also discussed the gabapentin which was added, and the fact that this could be titrated in the future. 137/72, 64, 20, 36.5 C, 96% She is alert and oriented. No acute distress appreciated. Heart is regular Respirations are nonlabored Abdomen soft and nontender Impression and plan Intractable Back Pain -- metastatic disease and disc bulge -MRI lumbar spine showing evidence of multifocal metastatic disease throughout the lumbosacral spine and bony pelvis & large right lateral disc bulge at L4-L5 which impinges on the exiting right L4 nerve root -CT A/P showing extensive/multifocal osteoblastic metastatic disease, no additional sites of metastatic disease seen in the abdomen or pelvis. -CT chest showing interval significant worsening of diffuse osseous metastatic disease. No suspicious pulmonary nodules seen. No mediastinal lymphadenopathy. Stable cardiomegaly and hiatal hernia. Fluid density lesion in the left chest wall somewhat decreased in size from prior, likely posttreatment change. -Discussed current case with [facility] oncology Dr. Prakash who recommended: -Brain MRI with/without contrast showing no acute abnormality, in particular no evidence of intracranial metastatic disease -Biopsy of spinal lesions, which he will help set up as an outpatient with IR in [place] -Hold off on Rad Onc at this time as this might interfere with ability to biopsy -Patient's area of pain does correlate with finding of L4-L5 disc bulge - Ortho spine consulted -- recommend: -Consult pain management -Thoracic MRI -- Extensive metastatic disease in the bones. There is a pathologic fracture of T1 with retropulsion of fragments, which results in only mild canal stenosis. -Hesitant to recommend any surgical intervention in light of her clinical presentation.Will coordinate with medicine and oncology as to the best course of action - Pain management consult: - Continue Oxycodone 5mg for pain relief. - Gabapentin 100mg TID. She has previously taken with moderate pain relief. This can be titrated; side effects discussed. - Not a candidate for interventional procedures given spine metastasis. - Patient not likely candidate for surgery or procedures from Ortho/Pain Mgmt due to spine metastases - PT/OT following -Pain control with Tylenol, Lidoderm and Oxycodone PRN - anticipate d/c home with home PT tomorrow, 03/20/2022. Rx for PT given to patient. Rx of oxycodone sent to [facility]. Malignant neoplasm of upper-inner quadrant of left breast in female, estrogen receptor negative: -s/p Chemo, possible recurrence as above -Hematology/Oncology discussion as above -Likely metastatic disease as above Moderate obstructive sleep apnea: -Continue CPAP qHS Hyperlipidemia: -Continue Atorvastatin Rheumatoid arthritis: -Continue home Prednisone 5mg po qAM -Continue Plaquenil Hypertension: -Continue olmesartan/HCTZ -Continue to monitor DVT prophylaxis: Lovenox 40 mg SQ daily Diet: Heart healthy CODE STATUS: DNR/DNI
[2022-03-28 15:14] VITALS: BP 109/57; PULSE 82; TEMP 98.1
== END 2022-03-28 15:56 | disposition home or self-care (01) | DRG 543 ==
LOC: EDINP 21:22 → ED 21:22 → SUATTDRO 03-23 03:06 → EDINP 03-23 04:57 → 3W 03-23 15:54 → SUATTDRO 03-25 19:11

== ENCOUNTER 2022-06-19 17:55 | Inpatient (IN) ==
--- NOTE | 2022-06-19 18:05 | Emergency Department Note ---
Impression & Plan Perforated diverticulum, Diverticulitis, Bladder fistula ED Provider Note NAME: SUSIE MONTES AGE: 72 SEX: F : 1950 ARRIVES VIA: Ambulance INFORMANT: Patient, ED PROVIDER(S): Boris Pena MD Chief Complaint: Dysuria, possible bladder fistula, stool in urine HPI: Patient presents due to concern for dysuria as well as the possibility of stool in the urine. Patient does have a history of breast cancer with metastases to the bone and has received radiation treatment and does follow with Dr. Prakash with radiation oncology through [facility]. Patient [place] any chest pain shortness of breath nausea or vomiting. The patient did develop some dysuria earlier in the week started on ciprofloxacin empirically and when she had a urine culture completed that showed ESBL and she was transitioned to Augmentin. Patient's ESBL states that it is sensitive to Augmentin and cefazolin ertapenem gentamicin Merrem Macrobid tobramycin and Zosyn. ROS: See HPI for pertinent positives and negatives. A total of 10 systems were reviewed and otherwise negative. Past medical history: See below Surgical history: See below Social history: See below Physical Exam: GENERAL: NAD, wearing a mask, non-toxic. Wearing glasses EYE EXAM: Normal conjunctiva. PERRL, no anisocoria and EOM's grossly intact w/o pain. NECK: Supple, no nuchal rigidity, no adenopathy, non-tender. No signs of meningismus. FROM of the neck with good chin to chest and neck extension. No stridor. LUNGS: Clear to auscultation. Normal chest wall mechanics. HEART: NSR, no MRG. ABDOMEN: Abdomen soft, non-tender, normo-active bowel sounds, no masses, no rebound or guarding. BACK: No CVA TTP. SKIN: No rashes and no bruising. UPPER EXTREMITIES: Upper extremities are grossly normal. LOWER EXTREMITIES: Grossly normal, no edema. NEURO EXAM: A&O x3, cranial nerves II-XII grossly intact, normal speech, moves all 4 extremities. Differential diagnoses: Appendicitis, ovarian cyst, ovarian torsion, ectopic , TOA, PID, infections, diverticulitis, UTI, obstruction, mesenteric ischemia, aortic pathology, inflammatory bowel disease, renal colic, PUD, pancreatitis, biliary pathology, hernia, volvulus, constipation, as well as other pathologies. Course: Patient was seen and evaluated the bedside. Full history physical exam was pe rformed. Imaging Studies: See Below Cardiac monitoring: An order was placed for continuous cardiac monitoring. The monitor shows a rate of 62 with sinus rhythm. MDM: Patient was ordered a dose of Zosyn. Blood work was obtained along with a CT abdomen pelvis. CT shows perforation and diverticulitis w/ bladder fistula. Blood work w/ anemia and leukopenia. VSS. I did speak w/ Dr. Villarreal w/ general surgery and discussed the findings. He will see in consultation w/ medical admit and recommends urology conult. I did speak with hospitalist Dr. Temple and the patient was admitted to the medicine service. I did convey the findings with the patient who was in agreement with plan of care. Past Med/Surg History Medical History Claudication of both lower extremities Depression GERD (gastroesophageal reflux disease) controlled Hiatal hernia Hyperlipidemia Hypertension Inflammatory polyarthritis Malignant neoplasm of upper-inner quadrant of left breast in female, estrogen receptor negative (04/24/19) Nocturnal hypoxemia Obesity, morbid, BMI 40.0-49.9 Rheumatoid arthritis on Plaquenil/prednisone 5mg daily chronic (mostly affects spine/hip/knee locations, no cervical issues) Spinal stenosis, lumbar region with neurogenic claudication Surgical History Difficult airway for intubation WITH BREAST SURGERY 05/2019 [facility] History of cholecystectomy History of colonoscopy History of esophagogastroduodenoscopy (EGD) History of lumpectomy of left breast partial History of open reduction and internal fixation (ORIF) procedure right wrist History of tonsillectomy and adenoidectomy History of total abdominal hysterectomy and bilateral salpingo-oophorectomy History of total hip arthroplasty RIGHT 10/2020 History of vascular access device present right chest Status post right foot surgery Family History Mother , age 77 CHF Family history of diabetes mellitus Hypertension Family history of cardiac disorder Diabetes type 2 Deep vein thrombosis Brother , age 49 colon cancer Family hx of colon cancer Colorectal cancer Grandfather Family hx of colon cancer PATERNAL Father , age 60 cardiac arrest Family history of cardiac disorder Myocardial infarction Sister Family history of malignant neoplasm Breast cancer, Onset Age: 50 Son Allergic rhinitis Coronary heart disease Son No problems noted. 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 [employer] How many Children do You have: 3 Feels Safe at Home: Yes Childhood Exposure to Second-Hand Smoke: Yes Diet Comment: low sodium caffeine: Yes during the past year weight has: other Dental Care, Regularly: Yes Physical Activity Frequency: 1-2 Times per Week Seatbelt Use: always Sunscreen Use: Yes (sometimes) Assistive Devices: Cane, CPAP, Glasses and Walker Allergies Allergies Allergy/AdvReac Type Severity Reaction Status Date / Time No Known Allergies Allergy Verified 06/19/22 19:31 Home Meds Home Medications Medication Instructions Recorded Confirmed cholecalciferol (vitamin D3) 125 5,000 unit PO QDL 04/25/18 06/19/22 mcg (5,000 unit) capsule multivitamin with minerals 1 tab PO QDL 02/12/19 06/19/22 hydroxychloroquine 200 mg tablet 200 mg PO BID 09/05/19 06/19/22 (Plaquenil) magnesium oxide 400 mg PO DAILY PRN LEG CRAMPS 10/27/20 06/19/22 calcium carbonate 600 mg calcium 1,200 mg PO BID 08/28/21 06/19/22 (1,500 mg) tablet (Calcium) allopurinol 100 mg tablet 100 mg PO QAM 03/23/22 06/19/22 dexamethasone 4 mg tablet 4 mg PO DAILY 04/27/22 06/19/22 lidocaine 4 % topical patch 1 patch topical DAILY 04/28/22 06/19/22 polyethylene glycol 3350 17 17 g PO DAILY 04/28/22 06/19/22 gram/dose oral powder (Miralax) acetaminophen 325 mg tablet 650 mg PO Q6H PRN PAIN/FEVER 11/19/22 11/19/22 (Tylenol) aluminum-mag hydroxide-simethicone 30 ml PO Q4H PRN Nausea 06/19/22 06/19/22 400 mg-400 mg-40 mg/5 mL oral susp (Maalox Maximum Strength) amoxicillin 875 mg-potassium 1 tab PO BID 06/19/22 06/19/22 clavulanate 125 mg tablet bisacodyl 5 mg tablet,delayed 10 mg PO QAM 06/19/22 06/19/22 release bumetanide 2 mg tablet 2 mg PO QAM 06/19/22 06/19/22 hydrochlorothiazide 25 mg tablet 25 mg PO QAM 06/19/22 06/19/22 lorazepam 0.5 mg tablet 0.5 mg PO Q12H PRN Anxiety 06/19/22 06/19/22 menthol 0.44 %-zinc oxide 20.6 % 1 applic topical TID 06/19/22 06/19/22 topical ointment (Calmoseptine) nystatin 100,000 unit/gram topical 1 applic topical BID 06/19/22 06/19/22 powder omeprazole 20 mg tablet,delayed 20 mg PO BID 06/19/22 06/19/22 release ondansetron HCl 4 mg tablet 4 mg PO Q4H PRN NAUSEA/VOMITING 06/19/22 06/19/22 oxycodone 30 mg tablet,crush 30 mg PO Q12H 06/19/22 06/19/22 resistant,extended release 12 hr (OxyContin) oxycodone 5 mg tablet 10 mg PO Q4H PRN PAIN--MOD-SEVERE 06/19/22 06/19/22 phenazopyridine 100 mg tablet 100 mg PO TID 06/19/22 06/19/22 (Pyridium) potassium chloride 20 mEq 20 meq PO BID 06/19/22 06/19/22 tablet,extended release prochlorperazine maleate 10 mg 10 mg PO Q4H PRN NAUSEA/VOMITING 06/19/22 06/19/22 tablet Previous Rx's Medication Instructions Recorded Lift chair #1 ea 08/22/20 duloxetine 60 mg capsule,delayed 60 mg PO DAILY #90 caps 07/07/21 release CPAP Machine #1 ea 09/08/21 atorvastatin 10 mg tablet 10 mg PO DAILY #90 tabs 09/15/21 fentanyl 50 mcg/hr transdermal 50 mcg transdermal Q3D #5 ea 06/01/22 patch gabapentin 300 mg capsule 300 mg PO BID #60 caps 06/01/22 olmesartan 20 mg tablet 20 mg PO DAILY #30 tabs 06/01/22 Results & Data (ED) Vital Signs Vital Signs - 24 hr 06/19/22 18:02 06/19/22 19:37 06/19/22 19:37 Temperature 36.8 C Temperature Source Oral Pulse Rate 80 Pulse Rate [Apical] 75 Respiratory Rate 18 18 Respiratory Effort / Characteristics Non-Labored Spontaneous Respiratory Depth Normal Blood Pressure 122/63 Blood Pressure [Right Arm] 106/61 Blood Pressure Mean 82 Blood Pressure Mean [Right Arm] 76 Pulse Oximetry 93 94 Oxygen Delivery Method Room Air Room Air Room Air Sepsis Recent Fever Within 48 Hours No Sepsis New/Unexplained Change in Mental Status No Sepsis Action Taken by Nursing No Action Required 06/19/22 21:07 Temperature Temperature Source Pulse Rate Pulse Rate [Apical] 70 Respiratory Rate 18 Respiratory Effort / Characteristics Non-Labored Respiratory Depth Normal Blood Pressure Blood Pressure [Right Arm] 103/61 Blood Pressure Mean Blood Pressure Mean [Right Arm] 75 Pulse Oximetry 95 Oxygen Delivery Method Room Air Sepsis Recent Fever Within 48 Hours Sepsis New/Unexplained Change in Mental Status Sepsis Action Taken by [facility] Medications Current Medication List: was personally reviewed by me Laboratory Data Attestation: I reviewed the patient's lab results. Result diagrams: 06/20/22 05:58 06/20/22 05:58 Lab Results 06/19/22 06/19/22 06/19/22 Range/Units 18:45 19:00 19:00 WBC 3.47 L (4.8-10.8) K/ul RBC 2.88 L (3.93-5.22) M/uL Hgb 9.1 L (12.0-16.0) g/dl POC Hgb (12.0-16.0) g/dl Hct 26.9 L (34.1-44.9) % POC Hct (37-47) % MCV 93.4 (80.0-100.0) fL MCH 31.6 (25.0-34.0) pg MCHC 33.8 (32.0-36.0) g/dL RDW Std Deviation 49.1 H (36.4-46.3) fL RDW Coeff of [place] 14.6 H (11.5-14.5) % Plt Count 140 (130-400) K/uL MPV 9.1 L (9.4-12.3) fL Absolute Nucleated RBC 0.05 H (0-0) K/uL Nucleated RBC % (auto) 1.4 % Neutrophils % (Manual) 87 % Lymphocytes % (Manual) 4 % Monocytes % (Manual) 3 % Metamyelocytes % (Man) 1 % Myelocytes % (Man) 4 % Neutrophils # (Manual) 3.02 (1.4-6.5) K/uL Lymphocytes # (Manual) 0.14 L (1.2-3.4) K/uL Monocytes # (Manual) 0.10 L (0.24-0.82) K/uL Metamyelocytes # (Man) 0.03 H (0-0) K/uL Myelocytes # (Manual) 0.14 H (0-0) K/uL Toxic Granulation 1+ Toxic Vacuolation 1+ Dohle Bodies 1+ Polychromasia 1+ POC Sodium (135-144) mmol/L Sodium 138 (136-145) mmol/L POC Potassium (3.3-5.0) mmol/L Potassium 3.8 (3.5-5.1) mmol/L POC Chloride (101-112) mmol/L Chloride 99 (98-107) mmol/L Carbon Dioxide 30 (21-32) mmol/L POC Total CO2 (24-31) mmol/L Anion Gap 9 (3-11) POC Anion Gap (16-25) mmol/L POC BUN (7-18) mg/dl BUN 36 H (6-23) mg/dl Creatinine 0.97 (0.6-1.2) mg/dl POC Creatinine (0.6-1.3) mg/dl Est Cr Clr Drug Dosing 59.7 ml/min Est GFR ( Amer) 66.7 ml/min Est GFR (Non-Af Amer) 57.5 ml/min BUN/Creatinine Ratio 37.1 H (10-20) Glucose 133 H (70-99(Fasting)) mg/dl POC Glucose (other) (70-99) mg/dl Calcium 7.7 L (8.5-10.1) mg/dl POC Ioniz Calcium Willi (1.12-1.32) mmol/l Total Bilirubin 0.3 (0.2-1.0) mg/dl AST 12 L (13-39) U/L ALT 19 (7-52) U/L Alkaline Phosphatase 82 (34-104) U/L Total Protein 5.8 L (6.0-8.3) gm/dl Albumin 3.1 L (3.4-5.0) gm/dl Globulin 2.7 (2.5-4.0) gm/dl Albumin/Globulin Ratio 1.1 (0.9-2) Lipase 11 (11-82) U/L Urine Color Dark Yellow Urine Appearance Turbid A (Clear) Urine pH 8.5 H (4.5-7.5) Ur Specific [place] 1.015 (1.000-1.030) Urine Protein 1+ H (Negative) Urine Glucose (UA) Negative (Negative) Urine Ketones Negative (Negative) Urine Blood 2+ H (Negative) Urine Nitrite Positive A (Negative) Urine Bilirubin Negative (Negative) Urine Urobilinogen Negative (Negative) Ur Leukocyte Esterase 3+ H (Negative) Urine RBC >30 H (0-4) /hpf Urine WBC >30 H (0-5) /hpf Ur Epithelial Cells 5-10 H (0-5) /lpf Urine Bacteria 4+ H (Negative) SARS-CoV-2, RNA, NAAT (NEGATIVE) 06/19/22 06/19/22 Range/Units 19:13 20:12 WBC (4.8-10.8) K/ul RBC (3.93-5.22) M/uL Hgb (12.0-16.0) g/dl POC Hgb 8.8 L (12.0-16.0) g/dl Hct (34.1-44.9) % POC Hct 26 L (37-47) % MCV (80.0-100.0) fL MCH (25.0-34.0) pg MCHC (32.0-36.0) g/dL RDW Std Deviation (36.4-46.3) fL RDW Coeff of [place] (11.5-14.5) % Plt Count (130-400) K/uL MPV (9.4-12.3) fL Absolute Nucleated RBC (0-0) K/uL Nucleated RBC % (auto) % Neutrophils % (Manual) % Lymphocytes % (Manual) % Monocytes % (Manual) % Metamyelocytes % (Man) % Myelocytes % (Man) % Neutrophils # (Manual) (1.4-6.5) K/uL Lymphocytes # (Manual) (1.2-3.4) K/uL Monocytes # (Manual) (0.24-0.82) K/uL Metamyelocytes # (Man) (0-0) K/uL Myelocytes # (Manual) (0-0) K/uL Toxic Granulation Toxic Vacuolation Dohle Bodies Polychromasia POC Sodium 136 (135-144) mmol/L Sodium (136-145) mmol/L POC Potassium 3.7 (3.3-5.0) mmol/L Potassium (3.5-5.1) mmol/L POC Chloride 97 L (101-112) mmol/L Chloride (98-107) mmol/L Carbon Dioxide (21-32) mmol/L POC Total CO2 28 (24-31) mmol/L Anion Gap (3-11) POC Anion Gap 16.0 (16-25) mmol/L POC BUN 32 H (7-18) mg/dl BUN (6-23) mg/dl Creatinine (0.6-1.2) mg/dl POC Creatinine 1.0 (0.6-1.3) mg/dl Est Cr Clr Drug Dosing ml/min Est GFR ( Amer) ml/min Est GFR (Non-Af Amer) ml/min BUN/Creatinine Ratio (10-20) Glucose (70-99(Fasting)) mg/dl POC Glucose (other) 134 H (70-99) mg/dl Calcium (8.5-10.1) mg/dl POC Ioniz Calcium Willi 1.03 L (1.12-1.32) mmol/l Total Bilirubin (0.2-1.0) mg/dl AST (13-39) U/L ALT (7-52) U/L Alkaline Phosphatase (34-104) U/L Total Protein (6.0-8.3) gm/dl Albumin (3.4-5.0) gm/dl Globulin (2.5-4.0) gm/dl Albumin/Globulin Ratio (0.9-2) Lipase (11-82) U/L Urine Color Urine Appearance (Clear) Urine pH (4.5-7.5) Ur Specific [place] (1.000-1.030) Urine Protein (Negative) Urine Glucose (UA) (Negative) Urine Ketones (Negative) Urine Blood (Negative) Urine Nitrite (Negative) Urine Bilirubin (Negative) Urine Urobilinogen (Negative) Ur Leukocyte Esterase (Negative) Urine RBC (0-4) /hpf Urine WBC (0-5) /hpf Ur Epithelial Cells (0-5) /lpf Urine Bacteria (Negative) SARS-CoV-2, RNA, NAAT NEGATIVE (NEGATIVE) Administered Medications Allopurinol (Allopurinol 100 Mg Tab) 100 mg PO QAM [facility] Stop: 07/20/22 08:59 Last Admin: 06/20/22 09:55 Dose: 100 mg Documented By: FREDDY Atorvastatin Calcium (Atorvastatin 10 Mg Tab) 10 mg PO DAILY [facility] Stop: 07/20/22 08:59 Last Admin: 06/20/22 10:02 Dose: 10 mg Documented By: FREDDY Bisacodyl (Bisacodyl 5 Mg Tabec) 10 mg PO QAM [facility] Stop: 07/20/22 08:59 Last Admin: 06/20/22 09:54 Dose: 10 mg Documented By: FREDDY Bumetanide (Bumetanide 1 Mg Tab) 2 mg PO QAM [facility] Stop: 07/20/22 08:59 Last Admin: 06/20/22 10:02 Dose: 2 mg Documented By: FREDDY Calcium Carbonate (Calcium Carbonate 1250mg Tab) 2,500 mg PO BID [facility]ANE Stop: 07/20/22 08:59 Last Admin: 06/20/22 10:02 Dose: 2,500 mg Documented By: FREDDY Dexamethasone (Dexamethasone 4 Mg Tab) 4 mg PO DAILY [facility] Stop: 07/20/22 08:59 Last Admin: 06/20/22 10:02 Dose: 4 mg Documented By: FREDDY Duloxetine HCl (Duloxetine Hcl 60 Mg Cap) 60 mg PO DAILY [facility] Stop: 07/20/22 08:59 Last Admin: 06/20/22 10:03 Dose: 60 mg Documented By: FREDDY Enoxaparin Sodium (Enoxaparin Inj 60 Mg/0.6 Ml Syr) 60 mg SQ QAM [facility] Stop: 07/20/22 08:59 Last Admin: 06/20/22 10:03 Dose: 60 mg Documented By: FREDDY Fentanyl (Fentanyl 50 Mcg/Hr Tdsy) 50 mcg TD Q3D@0900 [facility] Stop: 07/04/22 08:59 Last Admin: 06/20/22 09:55 Dose: 50 mcg Documented By: FREDDY Gabapentin (Gabapentin 300 Mg Cap) 300 mg PO BID JANE Stop: 07/20/22 08:59 Last Admin: 06/20/22 10:03 Dose: 300 mg Documented By: FREDDY Heparin Sodium (Porcine) (Heparin 100 Unit/Ml 5ml Flush) 5 ml FLUSH PRN PRN PRN Reason: Flush Stop: 07/20/22 06:28 Last Admin: 06/20/22 12:23 Dose: 5 ml Documented By: FREDDY Hydroxychloroquine Sulfate (Hydroxychloroquine Sulfate 200 Mg Tab) 200 mg PO BID JANE Stop: 07/20/22 08:59 Last Admin: 06/20/22 10:03 Dose: 200 mg Documented By: FREDDY Piperacillin Sod/Tazobactam (Sod 4.5 gm/ Dextrose) 120 mls @ 30 mls/hr IV Q8H [facility]; Protocol Stop: 06/30/22 01:59 Last Admin: 06/20/22 10:21 Dose: 30 mls/hr Documented By: Infusion: 06/20/22 06:13 Dose: 30 mls/hr Documented By: Admin: 06/20/22 01:49 Dose: 30 mls/hr Documented By: JASON Lactated Ringer's (Lr) 1,000 mls @ 125 mls/hr IV .Q8H [facility]ANE Stop: 07/20/22 06:59 Last Infusion: 06/20/22 12:19 Dose: 0 mls/hr Documented By: Admin: 06/20/22 09:37 Dose: 125 mls/hr Documented By: FREDDY Lidocaine (Lidocaine 5% 1 Patch) 1 patch TD DAILY [facility]ANE Stop: 07/20/22 08:59 Last Admin: 06/20/22 09:43 Dose: Not Given Documented By: FREDDY Lorazepam (Lorazepam 0.5 Mg Tab) 0.5 mg PO TID PRN PRN Reason: Anxiety Stop: 07/19/22 22:34 Last Admin: 06/20/22 11:34 Dose: 0.5 mg Documented By: FREDDY Miscellaneous (Fentanyl Patch Remove & Waste) 1 each N/A Q3D@0859 [facility] Stop: 07/20/22 08:58 Last Admin: 06/20/22 09:39 Dose: 1 each Documented By: FREDDY Co-signed By: RADHA Charles (Check Fentanyl Patch Placement) 1 each N/A QS [facility] Stop: 07/20/22 00:00 Last Admin: 06/20/22 09:38 Dose: 1 each Documented By: Admin: 06/20/22 00:26 Dose: 1 each Documented By: JASON Charles (Remove Lidoderm Patch) 1 each N/A HS [facility] Stop: 07/19/22 22:59 Last Admin: 06/19/22 23:23 Dose: Not Given Documented By: JASON Multivitamins (Multivitamin Tab) 1 tab PO QDL [facility] Stop: 07/20/22 11:29 Last Admin: 06/20/22 10:24 Dose: 1 tab Documented By: FREDDY Nystatin (Nystatin Powder 15gm Btl) 1 appln EXT BID [facility] Stop: 07/20/22 08:59 Last Admin: 06/20/22 10:08 Dose: 1 appln Documented By: FREDDY Olmesartan (Olmesartan Medoxomil 20 Mg Tab) 20 mg PO DAILY [facility] Stop: 07/20/22 08:59 Last Admin: 06/20/22 10:03 Dose: 20 mg Documented By: FREDDY Oxycodone HCl (Oxycodone Hcl Ir 5 Mg Tab (Immediate Release)) 10 mg PO Q4H PRN PRN Reason: PAIN--MOD-SEVERE Stop: 07/03/22 22:50 Last Admin: 06/20/22 12:24 Dose: 10 mg Documented By: Admin: 06/20/22 04:58 Dose: 10 mg Documented By: JASON Oxycodone HCl (Oxycodone Hcl 15 Mg Tabcr (Oxycontin)) 30 mg PO BID [facility] Stop: 07/03/22 22:34 Last Admin: 06/20/22 10:08 Dose: 30 mg Documented By: Admin: 06/19/22 23:21 Dose: 30 mg Documented By: JASON Pantoprazole Sodium (Pantoprazole 40 Mg Tab) 40 mg PO QAM [facility] Stop: 07/20/22 08:59 Last Admin: 06/20/22 10:04 Dose: 40 mg Documented By: FREDDY Polyethylene Glycol (Polyethylene (Miralax) 17 Gm Pack) 17 gm PO DAILY [facility] Stop: 07/20/22 08:59 Last Admin: 06/20/22 09:54 Dose: 17 gm Documented By: FREDDY Potassium Chloride (Potassium Chloride Crtab 20 Meq Tabcr) 20 meq PO BID17 [facility] Stop: 07/20/22 08:59 Last Admin: 06/20/22 10:04 Dose: 20 meq Documented By: FREDDY Vitamin D (Cholecalciferol 5,000 Units 125 Mcg Tab) 5,000 units PO QDL [facility] Stop: 07/20/22 11:29 Last Admin: 06/20/22 10:24 Dose: 5,000 units Documented By: FREDDY Discontinued Medications Piperacillin Sod/Tazobactam Sod (Zosyn) 4.5 gm in 120 mls @ 240 mls/hr IV NOW ONE Stop: 06/19/22 19:23 Last Infusion: 06/19/22 20:06 Dose: 0 mls/hr Documented By: RADHA(2) Admin: 06/19/22 19:36 Dose: 240 mls/hr Documented By: RADHA(2) Ioversol (Optiray 350 100ml) 100 ml IV ONCE ONE Stop: 06/19/22 19:26 Last Admin: 06/19/22 19:26 Dose: 100 ml Documented By: KAT Oxycodone HCl (Oxycodone Hcl Ir 5 Mg Tab (Immediate Release)) 10 mg PO NOW STA Stop: 06/19/22 19:15 Last Admin: 06/19/22 19:36 Dose: 10 mg Documented By: RADHA(2) Imaging Data Radiologist's Impression: Abdomen/Pelvis CT 06/19/22 18:52 CT OF THE ABDOMEN AND PELVIS WITH CONTRAST CLINICAL HISTORY: 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 Metastatic breast cancer. COMPARISON STUDY: CT of the abdomen and pelvis April 20, 2022 and KUB May 30, 2022. PET/CT April 09, 2022. TECHNIQUE: Following IV administration of 100 mL of Optiray, axial images of the abdomen and pelvis were obtained from the lung bases to the proximal femurs. Images were reviewed in the axial, sagittal, and coronal planes. IV contrast was administered without complication. Automated exposure control was utilized for the study. A dose lowering technique was utilized adhering to the principles of ALARA. CT DOSE: 1678.42 mGy.cm FINDINGS: A small left pleural effusion is similar to CT of April 20, 2022. A hiatal hernia with partially intrathoracic stomach is noted. No pneumatosis, free air or portal venous gas is present. There is no significant biliary ductal dilatation status post cholecystectomy. Spleen, adrenal glands, kidneys and pancreas are unremarkable with the exception of several subcentimeter renal lesions which are too small to characterize. There is no hydronephrosis. There is no peripancreatic infiltration. No pancreatic ductal dilatation is present. Right hip arthroplasty is noted. Innumerable sclerotic skeletal lesions are again noted. Conspicuity of these lesions has increased since CT of April 20, 2022. Methylmethacrylate within the bilateral sacral ala with bilateral sacral fractures. Moderate amount of stool within the colon is noted. There is no evidence for a bowel obstruction. Colonic diverticulosis is noted. A 4.5 x 2 cm pocket of gas along the proximal sigmoid colon is new since prior CT. There is mild adjacent stranding. This suggests a contained perforation in the setting of diverticulitis. A 6.2 x 5.3 cm focus of stool and gas along the inferior aspect of the mid sigmoid colon is also new since prior CT with mild adjacent stranding. This communicates with the bladder and represents a colovesicular fistula. There is stool and gas within the bladder. Bladder wall thickening is noted. No additional sites of diverticulitis are present. IMPRESSION: 1. Findings consistent with multifocal acute sigmoid diverticulitis. 6.2 x 5.3 cm focus of stool and gas along the mid sigmoid colon suggests a contained perforation containing stool which communicates with the bladder consistent with a colovesicular fistula. Stool and gas within the bladder. 4.5 x 2 cm pocket of extraluminal gas adjacent to the proximal sigmoid colon represents a contained perforation. Mild adjacent stranding. 2. Increased conspicuity of numerous sclerotic skeletal lesions. This could reflect a treatment response or progression of metastatic disease. 3. No change in a small left pleural effusion. 4. No bowel obstruction. Moderate amount of stool within the colon. ACT 112: Negative or not required by law. Electronically signed by: Javon Mueller M.D. 06/19/2022 7:41 PM Discharge Plan Visit Data Chief Complaint: Urinary Symptoms ED Provider: Boris Pena Discharge Problem: Perforated diverticulum, Diverticulitis, Bladder fistula Patient Disposition: Admitted As Inpatient Discharge Instructions Interventions: ED Discharge Assessment Last Done: 06/19/22 22:07
[2022-06-19] MEDS ORDERED: PIPERACILLIN/TAZOBACTAM 4.5 GM/120 ML BAG IV ONE (18:54)
[2022-06-19] MEDS ORDERED: oxyCODONE HCL IR 5 MG TAB (IMMEDIATE RELEASE) PO STA (19:14)
[2022-06-19 19:25] LABS: iSTAT Hemoglobin 8.8 g/dl (12.0-16.0); iSTAT Ionized Calcium 1.03 mmol/l (1.12-1.32); iSTAT Potassium 3.7 mmol/L (3.3-5.0)
[2022-06-19] MEDS ORDERED: OPTIRAY 350 100ml IV ONE (19:25)
[2022-06-19 19:39] LABS: Albumin Globulin Ratio 1.1 (0.9-2); Albumin Level 3.1 gm/dl (3.4-5.0); BUN Creatinine Ratio 37.1 (10-20); Bilirubin,Total 0.3 mg/dl (0.2-1.0); Calcium 7.7 mg/dl (8.5-10.1); Creatinine Clr Calc Pharmacy 59.7 ml/min; Est GFR (African American) 66.7 ml/min; Est GFR (Non-African American) 57.5 ml/min; Globulin 2.7 gm/dl (2.5-4.0); Potassium 3.8 mmol/L (3.5-5.1); Total Protein 5.8 gm/dl (6.0-8.3)
--- NOTE | 2022-06-19 19:44 | CT Scan Report ---
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 Metastatic breast cancer. COMPARISON STUDY: CT of the abdomen and pelvis April 20, 2022 and KUB May 30, 2022. PET/CT [facility] 2021. TECHNIQUE: Following IV administration of 100 mL of Optiray, axial images of the abdomen and pelvis w ere obtained from the lung bases to the proximal femurs. Images were reviewed in the axial, sagittal, and coronal planes. IV contrast was administered without complication. Automated exposure control w as utilized for the study. A dose lowering technique was utilized adhering to the principles of YOHAN Ewing. CT DOSE: 1678.42 mGy.cm FINDINGS: A small left pleural effusion is similar to CT of April 20, 2022. A hiatal hernia with partially intrathoracic stomach is noted. No pneumatosis, free air or portal venous gas is present. T here is no significant biliary ductal dilatation status post cholecystectomy. Spleen, adrenal glands, kidneys and pancreas are unremarkable with the exception of several subcentimeter renal lesions whic h are too small to characterize. There is no hydronephrosis. There is no peripancreatic infiltration. No pancreatic ductal dilatation is present. Right hip arthroplasty is noted. Innumerable sclerotic s keletal lesions are again noted. Conspicuity of these lesions has increased since CT of April 20, 2022. Methylmethacrylate within the bilateral sacral ala with bilateral sacral fractures. Moderate a mount of stool within the colon is noted. There is no evidence for a bowel obstruction. Colonic diver ticulosis is noted. A 4.5 x 2 cm pocket of gas along the proximal sigmoid colon is new since prior CT . There is mild adjacent stranding. This suggests a contained perforation in the setting of diverticu litis. A 6.2 x 5.3 cm focus of stool and gas along the inferior aspect of the mid sigmoid colon is al so new since prior CT with mild adjacent stranding. This communicates with the bladder and represents a colovesicular fistula. There is stool and gas within the bladder. Bladder wall thickening is noted . No additional sites of diverticulitis are present. IMPRESSION: 1. Findings consistent with multifocal acute sigmoid diverticulitis. 6.2 x 5.3 cm focus of stool and gas along the mid sigmoid colon suggests a contained perforation containing stool which communicates with the bladder consistent with a colovesicular fistula. Stool and gas within the bladder. 4.5 x 2 c m pocket of extraluminal gas adjacent to the proximal sigmoid colon represents a contained perforatio n. Mild adjacent stranding. 2. Increased conspicuity of numerous sclerotic skeletal lesions. This could reflect a treatment respo nse or progression of metastatic disease. 3. No change in a small left pleural effusion. 4. No bowel obstruction. Moderate amount of stool within the colon. ACT 112: Negative or not required by law. Electronically signed by: Javon Mueller M.D. 06/19/2022 7:41 PM
[2022-06-19 19:57] LABS: Hematocrit (blood only) 26.9 % (34.1-44.9); Hemoglobin 9.1 g/dl (12.0-16.0); Mean Corpuscular Hemoglobin 31.6 pg (25.0-34.0); Mean Corpuscular Hgb Conc 33.8 g/dL (32.0-36.0); Mean Corpuscular Volume 93.4 fL (80.0-100.0); Mean Platelet Volume 9.1 fL (9.4-12.3); Nucleated RBC # (auto) 0.05 K/uL (0-0); Nucleated RBC % (auto) 1.4 %; Platelet Count 140 K/uL (130-400); RDW Coefficient of Variation 14.6 % (11.5-14.5); RDW Standard Deviation 49.1 fL (36.4-46.3); Red Blood Count 2.88 M/uL (3.93-5.22); White Blood Count 3.47 K/ul (4.8-10.8)
[2022-06-19 19:58] LABS: Dohle Bodies 1+; Lymphocytes # (manual) 0.14 K/uL (1.2-3.4); Lymphocytes % (manual) 4 %; Metamyelocytes # (manual) 0.03 K/uL (0-0); Metamyelocytes % (manual) 1 %; Monocytes % (manual) 3 %; Myelocytes # (manual) 0.14 K/uL (0-0); Myelocytes % (manual) 4 %; Neutrophils # (manual) 3.02 K/uL (1.4-6.5); Neutrophils % (manual) 87 %; Polychromasia 1+; Toxic Granulation 1+; Toxic Vacuolation 1+
--- NOTE | 2022-06-19 21:25 | History & Physical Report ---
Date of Service June 19, 2022 Assessment & Plan (1) Colovesical fistula: Plan: CT a/p on 06/19 notes "". - Zosyn - Urology & general surgery consult - Can put in Rivera if patient has urinary obstruction from fecal material in urine (2) Diverticulitis: Plan: CT a/p on 06/19 showed "". - Zosyn as above - Clear liquid diet - Gen surg as above (3) Neoplasm related pain: Plan: Doing fairly well after prior admission. - Continue fentanyl patch, OxyContin, and oxycodone for breakthrough pain -> OxyContin appears to have been added by [facility] providers recently - Continue home bowel regimen (4) Malignant 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: Plan: Follows with [facility] oncology. - No inpatient needs (5) Moderate obstructive sleep apnea: Plan: - CPAP 13 cmH20 (6) Anxiety and depression: Plan: - Continue home duloxetine and lorazepam PRN (7) Hypertension: Plan: During prior admission, HCTZ was stopped. - Continue home olmesartan and Bumex (8) Anemia: Plan: Hgb during last admission was ~12 - 12.5, but was decreasing. Hgb tonight is 9.1. No signs of bleeding. Normocytic. Suspect anemia of chronic disease. - Anemia labs in AM - Monitor (9) DVT prophylaxis: Plan: Lovenox 55 mg SQ QAM (weight-base dosing) DNR/DNI - Per patient in ER. Daughter present and in agreement. History of Present Illness Primary Care Provider: [facility] 72yo F w/ hx of metastatic breast cancer who presents with diverticulitis and colovesicular fistula. The patient reports that she was doing fairly well at [facility] after her discharge for intractable pain. Her pain had generally been fairly well controlled, and she was doing ok. On Tuesday night (into Tuesday) of last week (06/14-06/15), she had an abrupt change in her urine color, and it became feculent. This was an abrupt change. She also had some dysuria with this change. She was started on ciprofloxacin and culture was done. This was about 4 days ago. She was then switched over to Augmentin; however, this also has not changed things at all. She was sent info for IV abx as she continues to have feculent urine. Allergies Allergy/AdvReac Type Severity Reaction Status Date / Time No Known Allergies Allergy Verified 06/19/22 19:31 Home Medications Medication Instructions Recorded Confirmed Type cholecalciferol (vitamin D3) 125 5,000 unit PO QDL 04/25/18 06/19/22 History mcg (5,000 unit) capsule multivitamin with minerals 1 tab PO QDL 02/12/19 06/19/22 History hydroxychloroquine 200 mg tablet 200 mg PO BID 09/05/19 06/19/22 History (Plaquenil) Lift chair #1 ea 08/22/20 04/28/22 Rx magnesium oxide 400 mg PO DAILY PRN LEG CRAMPS 10/27/20 06/19/22 History duloxetine 60 mg capsule,delayed 60 mg PO DAILY #90 caps 07/07/21 06/19/22 Rx release calcium carbonate 600 mg calcium 1,200 mg PO BID 08/28/21 06/19/22 History (1,500 mg) tablet (Calcium) CPAP Machine #1 ea 09/08/21 04/28/22 Rx atorvastatin 10 mg tablet 10 mg PO DAILY #90 tabs 09/15/21 06/19/22 Rx allopurinol 100 mg tablet 100 mg PO QAM 03/23/22 06/19/22 History dexamethasone 4 mg tablet 4 mg PO DAILY 04/27/22 06/19/22 History lidocaine 4 % topical patch 1 patch topical DAILY 04/28/22 06/19/22 History polyethylene glycol 3350 17 17 g PO DAILY 04/28/22 06/19/22 History gram/dose oral powder (Miralax) fentanyl 50 mcg/hr transdermal 50 mcg transdermal Q3D #5 ea 06/01/22 06/19/22 Rx patch gabapentin 300 mg capsule 300 mg PO BID #60 caps 06/01/22 06/19/22 Rx olmesartan 20 mg tablet 20 mg PO DAILY #30 tabs 06/01/22 06/19/22 Rx oxycodone 10 mg tablet,crush 10 mg PO Q4H PRN PAIN--MOD-SEVERE 06/07/22 06/19/22 History resistant,extended release 12 hr (OxyContin) acetaminophen 325 mg tablet 650 mg PO Q6H PRN PAIN/FEVER 06/19/22 06/19/22 History (Tylenol) aluminum-mag hydroxide-simethicone 30 ml PO Q4H PRN Nausea 06/19/22 06/19/22 History 400 mg-400 mg-40 mg/5 mL oral susp (Maalox Maximum Strength) amoxicillin 875 mg-potassium 1 tab PO BID 06/19/22 06/19/22 History clavulanate 125 mg tablet bisacodyl 5 mg tablet,delayed 10 mg PO QAM 06/19/22 06/19/22 History release bumetanide 2 mg tablet 2 mg PO QAM 06/19/22 06/19/22 History hydrochlorothiazide 25 mg tablet 25 mg PO QAM 06/19/22 06/19/22 History lorazepam 0.5 mg tablet 0.5 mg PO Q12H PRN Anxiety 06/19/22 06/19/22 History menthol 0.44 %-zinc oxide 20.6 % 1 applic topical TID 06/19/22 06/19/22 History topical ointment (Calmoseptine) nystatin 100,000 unit/gram topical 1 applic topical BID 06/19/22 06/19/22 History powder omeprazole 20 mg tablet,delayed 20 mg PO BID 06/19/22 06/19/22 History release ondansetron HCl 4 mg tablet 4 mg PO Q4H PRN NAUSEA/VOMITING 06/19/22 06/19/22 History oxycodone 30 mg tablet,crush 30 mg PO Q12H 06/19/22 06/19/22 History resistant,extended release 12 hr (OxyContin) phenazopyridine 100 mg tablet 100 mg PO TID 06/19/22 06/19/22 History (Pyridium) potassium chloride 20 mEq 20 meq PO BID 06/19/22 06/19/22 History tablet,extended release prochlorperazine maleate 10 mg 10 mg PO Q4H PRN NAUSEA/VOMITING 06/19/22 06/19/22 History tablet Past Med/Surg History Medical History Claudication of both lower extremities Depression GERD (gastroesophageal reflux disease) controlled Hiatal hernia Hyperlipidemia Hypertension Inflammatory polyarthritis Malignant neoplasm of upper-inner quadrant of left breast in female, estrogen receptor negative (04/24/19) Nocturnal hypoxemia Obesity, morbid, BMI 40.0-49.9 Rheumatoid arthritis on Plaquenil/prednisone 5mg daily chronic (mostly affects spine/hip/knee locations, no cervical issues) Spinal stenosis, lumbar region with neurogenic claudication Surgical History Difficult airway for intubation WITH BREAST SURGERY 05/2019 [facility] History of cholecystectomy History of colonoscopy History of esophagogastroduodenoscopy (EGD) History of lumpectomy of left breast partial History of open reduction and internal fixation (ORIF) procedure right wrist History of tonsillectomy and adenoidectomy History of total abdominal hysterectomy and bilateral salpingo-oophorectomy History of total hip arthroplasty RIGHT 10/2020 History of vascular access device present right chest Status post right foot surgery Family History Mother , age 77 CHF Family history of diabetes mellitus Hypertension Family history of cardiac disorder Diabetes type 2 Deep vein thrombosis Brother , age 49 colon cancer Family hx of colon cancer Colorectal cancer Grandfather Family hx of colon cancer PATERNAL Father , age 60 cardiac arrest Family history of cardiac disorder Myocardial infarction Sister Family history of malignant neoplasm Breast cancer, Onset Age: 50 Son Allergic rhinitis Coronary heart disease Son No problems noted. 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 [employer] How many Children do You have: 3 Feels Safe at Home: Yes Childhood Exposure to Second-Hand Smoke: Yes Diet Comment: low sodium caffeine: Yes during the past year weight has: other Dental Care, Regularly: Yes Physical Activity Frequency: 1-2 Times per Week Seatbelt Use: always Sunscreen Use: Yes (sometimes) Assistive Devices: Cane and Walker Review of Systems Review of Systems: All systems reviewed & are unremarkable except as noted in HPI & below Physical Exam Constitutional: WD/WN, vitals as above Eyes: EOM intact bilaterally; no conjunctival abnormality ENMT: external ear and nose normal, oropharynx normal Neck: trachea midline, no thyromegaly normal visual inspection Respiratory: normal respiratory effort, lungs clear to auscultation no respiratory distress Cardiovascular: RRR, no murmur, no edema Gastrointestinal (Abdomen): Inspection/Auscultation: abdomen normal to inspection; abdomen not distended Musculoskeletal: no cyanosis or clubbing, extremities motor strength 5/5 Skin: no rashes, warm and dry Neurologic: moves all extremities and awake Psychiatric: Orientation: alert, oriented to person and cooperative Results & Data Results & Data ([facility]) Vital Signs (Past 12 Hours) Vital Signs Temp Pulse Pulse Resp BP BP Pulse Ox 06/19/22 21:07 70 18 103/61 95 06/19/22 19:37 06/19/22 19:37 75 18 106/61 94 06/19/22 18:02 36.8 C 80 18 122/63 93 O2 Del Method 06/19/22 21:07 Room Air 06/19/22 19:37 Room Air 06/19/22 19:37 Room Air 06/19/22 18:02 Room Air Code Status & VTE Plan VTE Prophylaxis Plan VTE Prophylaxis will be ordered: Yes PG Care Time/CCT Total # of Minutes Spent Total Time Spent with Patient: Total time spent is greater than 50% in coordination of care (as documented) at patient's floor/unit and/or counseling patient: Coding Level of Care Code 81965 Initial Inpt Care Lvl 3 Diagnoses Colovesical fistula N32.1 Diverticulitis K57.92 Neoplasm related pain G89.3 Malignant 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 C50.919; C79.51 Moderate obstructive sleep apnea G47.33 Anxiety and depression F41.9; F32.9 Hypertension I10 Anemia D64.9 DVT prophylaxis Z29.9
[2022-06-19 21:39] LABS: Appearance Urine Turbid (Clear); Bilirubin Urine Negative (Negative); Blood Urine 2+ (Negative); Glucose Urine UA Negative (Negative); Ketones Urine Negative (Negative); Leukocyte Esterase Urine 3+ (Negative); Nitrite Urine Positive (Negative); Protein Urine 1+ (Negative); Specific Gravity Urine 1.015 (1.000-1.030); Urobilinogen Urine Negative (Negative); pH Urine 8.5 (4.5-7.5)
[2022-06-19 21:44] LABS: Color Urine Dark Yellow
[2022-06-19 21:45] LABS: Bacteria Urine 4+ (Negative)
[2022-06-19 21:46] LABS: RBC Urine >30 /hpf (0-4); WBC Urine >30 /hpf (0-5)
--- NOTE | 2022-06-19 22:12 | Surgery Consultation ---
Date of Consultation June 19, 2022 Assessment & Plan (1) Diverticulitis: Patient has been admitted on the hospitalist service. We recommend proceeding as follows: Provide analgesics as needed Provide antiemetics if needed Implement n.p.o. status Continue antibiotics in the form of Zosyn which have been initiated in emergency department Provide IV fluid for hydration I discussed the situation with the patient and her family who are present at bedside. I discussed her it would be ideal to treat the patient's acute infectious process prior to consideration of any surgical intervention. We will monitor the patient's progress with the plan noted above with further plans to be dictated based on her clinical response to the above. History of Present Illness Reason for Consultation: Diverticulitis with concern for colovesical fistula History of Present Illness This is a 72-year-old female who presented to [facility] emergency department as she noticed she was having episodes of urinating where she felt that she was having stool in her urine. She specifically denies any abdominal pain. She does note some dysuria for approximately 1 week. She has not had any fevers, shakes, or chills. She has not had any nausea or vomiting. The patient says that she has had a colonoscopy in the past but she is unsure of the most recent one. To the best of her knowledge there is no significant pathology noted on the study. Concerning prior abdominal surgery she has had a hysterectomy as well as a cholecystectomy. In addition the patient has had a history of radiation to her pelvic area secondary to bone metastases from metastatic breast cancer. The patient does report that she did have an episode of diverticulitis for which she was treated for back in April 2022. Patient notes that she was hospitalized for this problem but says that she was discharged on antibiotics and did complete her entire course of antibiotics. Since arrival to the emergency department the patient has had labs and imaging which I independent reviewed. CT scan of the abdomen and pelvis showed findings concerning for multifocal acute sigmoid diverticulitis. Patient had a 6.2 x 5.3 cm focus of stool and gas along the mid sigmoid colon concerning for a contained perforation. There is concern that this communicated with the bladder concerning for a colovesical fistula. There is stool and gas in the bladder and there is a 4.5 x 2 cm pocket of extraluminal gas adjacent to the proximal sigmoid colon representing a contained perforation. Labs include a CBC were white blood cell count was 3.4. Hemoglobin and hematocrit were 9.1 and 26.9. Platelet count was within the normal range. Chemistry profile showed sodium and potassium were normal. BUN and creatinine were 36 and 0.9. There is no significant elevation of patient's LFTs or lipase. Urinalysis was positive for nitrite as well as 2+ blood. The urine was noted to be turbid. There were greater than 30 white blood cells per high-power field and 4+ bacteria. A COVID test was negative. Since arrival to the emergency department the patient has received antibiotics in the form of Zosyn. At the time of my interview the patient was resting comfortably in bed and she was no distress. Allergies Allergy/AdvReac Type Severity Reaction Status Date / Time No Known Allergies Allergy Verified 06/19/22 19:31 Home Medications Medication Instructions Recorded Confirmed Type cholecalciferol (vitamin D3) 125 5,000 unit PO QDL 04/25/18 06/19/22 History mcg (5,000 unit) capsule multivitamin with minerals 1 tab PO QDL 02/12/19 06/19/22 History hydroxychloroquine 200 mg tablet 200 mg PO BID 09/05/19 06/19/22 History (Plaquenil) Lift chair #1 ea 08/22/20 04/28/22 Rx magnesium oxide 400 mg PO DAILY PRN LEG CRAMPS 10/27/20 06/19/22 History duloxetine 60 mg capsule,delayed 60 mg PO DAILY #90 caps 07/07/21 06/19/22 Rx release calcium carbonate 600 mg calcium 1,200 mg PO BID 08/28/21 06/19/22 History (1,500 mg) tablet (Calcium) CPAP Machine #1 ea 09/08/21 04/28/22 Rx atorvastatin 10 mg tablet 10 mg PO DAILY #90 tabs 09/15/21 06/19/22 Rx allopurinol 100 mg tablet 100 mg PO QAM 03/23/22 06/19/22 History dexamethasone 4 mg tablet 4 mg PO DAILY 04/27/22 06/19/22 History lidocaine 4 % topical patch 1 patch topical DAILY 04/28/22 06/19/22 History polyethylene glycol 3350 17 17 g PO DAILY 04/28/22 06/19/22 History gram/dose oral powder (Miralax) fentanyl 50 mcg/hr transdermal 50 mcg transdermal Q3D #5 ea 06/01/22 06/19/22 Rx patch gabapentin 300 mg capsule 300 mg PO BID #60 caps 06/01/22 06/19/22 Rx olmesartan 20 mg tablet 20 mg PO DAILY #30 tabs 06/01/22 06/19/22 Rx oxycodone 10 mg tablet,crush 10 mg PO Q4H PRN PAIN--MOD-SEVERE 06/07/22 06/19/22 History resistant,extended release 12 hr (OxyContin) acetaminophen 325 mg tablet 650 mg PO Q6H PRN PAIN/FEVER 06/19/22 06/19/22 History (Tylenol) aluminum-mag hydroxide-simethicone 30 ml PO Q4H PRN Nausea 06/19/22 06/19/22 History 400 mg-400 mg-40 mg/5 mL oral susp (Maalox Maximum Strength) amoxicillin 875 mg-potassium 1 tab PO BID 06/19/22 06/19/22 History clavulanate 125 mg tablet bisacodyl 5 mg tablet,delayed 10 mg PO QAM 06/19/22 06/19/22 History release bumetanide 2 mg tablet 2 mg PO QAM 06/19/22 06/19/22 History hydrochlorothiazide 25 mg tablet 25 mg PO QAM 06/19/22 06/19/22 History lorazepam 0.5 mg tablet 0.5 mg PO Q12H PRN Anxiety 06/19/22 06/19/22 History menthol 0.44 %-zinc oxide 20.6 % 1 applic topical TID 06/19/22 06/19/22 History topical ointment (Calmoseptine) nystatin 100,000 unit/gram topical 1 applic topical BID 06/19/22 06/19/22 History powder omeprazole 20 mg tablet,delayed 20 mg PO BID 06/19/22 06/19/22 History release ondansetron HCl 4 mg tablet 4 mg PO Q4H PRN NAUSEA/VOMITING 06/19/22 06/19/22 History oxycodone 30 mg tablet,crush 30 mg PO Q12H 06/19/22 06/19/22 History resistant,extended release 12 hr (OxyContin) phenazopyridine 100 mg tablet 100 mg PO TID 06/19/22 06/19/22 History (Pyridium) potassium chloride 20 mEq 20 meq PO BID 06/19/22 06/19/22 History tablet,extended release prochlorperazine maleate 10 mg 10 mg PO Q4H PRN NAUSEA/VOMITING 06/19/22 06/19/22 History tablet Patient History Medical History Claudication of both lower extremities Depression GERD (gastroesophageal reflux disease) controlled Hiatal hernia Hyperlipidemia Hypertension Inflammatory polyarthritis Malignant neoplasm of upper-inner quadrant of left breast in female, estrogen receptor negative (04/24/19) Nocturnal hypoxemia Obesity, morbid, BMI 40.0-49.9 Rheumatoid arthritis on Plaquenil/prednisone 5mg daily chronic (mostly affects spine/hip/knee locations, no cervical issues) Spinal stenosis, lumbar region with neurogenic claudication Surgical History Difficult airway for intubation WITH BREAST SURGERY 05/2019 [facility] History of cholecystectomy History of colonoscopy History of esophagogastroduodenoscopy (EGD) History of lumpectomy of left breast partial History of open reduction and internal fixation (ORIF) procedure right wrist History of tonsillectomy and adenoidectomy History of total abdominal hysterectomy and bilateral salpingo-oophorectomy History of total hip arthroplasty RIGHT 10/2020 History of vascular access device present right chest Status post right foot surgery Family History Mother , age 77 CHF Family history of diabetes mellitus Hypertension Family history of cardiac disorder Diabetes type 2 Deep vein thrombosis Brother , age 49 colon cancer Family hx of colon cancer Colorectal cancer Grandfather Family hx of colon cancer PATERNAL Father , age 60 cardiac arrest Family history of cardiac disorder Myocardial infarction Sister Family history of malignant neoplasm Breast cancer, Onset Age: 50 Son Allergic rhinitis Coronary heart disease Son No problems noted. 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 [employer] How many Children do You have: 3 Feels Safe at Home: Yes Childhood Exposure to Second-Hand Smoke: Yes Diet Comment: low sodium caffeine: Yes during the past year weight has: other Dental Care, Regularly: Yes Physical Activity Frequency: 1-2 Times per Week Seatbelt Use: always Sunscreen Use: Yes (sometimes) Assistive Devices: Cane and Walker Review of Systems Constitutional: no fever and no chills Eyes: no eye pain Ear, Nose, Mouth, Throat: no ear pain Respiratory: no cough and no dyspnea Cardiovascular: no chest pain Gastrointestinal: no abdominal pain, no nausea and no vomiting Genitourinary: as per Subjective / HPI Musculoskeletal: no back pain Integumentary: no rash Neurologic: no localized weakness Physical Exam Constitutional: WD/WN, vitals as above Eyes: no conjunctival abnormality ENMT: Ears: no hearing impairment and no external ear abnormality Mouth: no oropharynx abnormality Neck: trachea midline Respiratory: normal respiratory effort; no respiratory distress Cardiovascular: Rate/Rhythm: regular rate and regular rhythm Gastrointestinal (Abdomen): Abdomen is soft, nondistended, nonrigid, and nontender to palpation other than some slight tenderness in the suprapubic region. There is no rebound tenderness or guarding. Musculoskeletal: No calf tenderness Skin: no rashes Neurologic: moves all extremities Results & Data ([facility]) Vital Signs (Past 12 Hours) Vital Signs Temp Pulse Pulse Resp BP BP Pulse Ox 06/19/22 21:07 70 18 103/61 95 06/19/22 19:37 06/19/22 19:37 75 18 106/61 94 06/19/22 18:02 36.8 C 80 18 122/63 93 O2 Del Method 06/19/22 21:07 Room Air 06/19/22 19:37 Room Air 06/19/22 19:37 Room Air 06/19/22 18:02 Room Air PG Care Time/CCT Total # of Minutes Spent Total Time Spent with Patient: Total time spent is greater than 50% in coordination of care (as documented) at patient's floor/unit and/or counseling patient: Coding Level of Care Code 11867 Inpt Consult Level 5 Diagnoses Diverticulitis K57.92
[2022-06-19] MEDS ORDERED: ACETAMINOPHEN 325 MG TAB PO PRN (22:35)
[2022-06-19] MEDS ORDERED: PROCHLORPERAZINE MALEATE 10 MG TAB PO PRN (22:35)
--- NOTE | 2022-06-19 22:51 | Urology Consultation ---
Date of Consultation June 19, 2022 Assessment & Plan (1) Colovesical fistula: The patient has been admitted on the hospitalist service. Recommend proceeding as follows: As needed analgesics to be provided As needed antiemetics be provided N.p.o. status should be implemented Broad-spectrum antibiotics in form of Zosyn should be continued which have been initiated emergency department Patient should be hydrated IV fluids I discussed with the patient and her family who are present at bedside. As noted in the general surgery consultation would be ideal to treat the patient's acute infectious process prior to consideration of any surgical intervention. I discussed the case with my attending physician Dr. Jimenez and he notes that if the patient would undergo surgical intervention of her diverticulitis oversewing of the bladder may be necessary requiring a combined procedure with urology and general surgery. The timing of any such procedure is yet to be determined based on her clinical response to the above. Additional recommendations will be forthcoming based on her clinical course as it unfolds History of Present Illness Reason for Consultation: Diverticulitis with concern for colovesical fistula Attending Physician: Shine Temple MD History of Present Illness This is a 72-year-old female who presented to [facility] secondary to stool in her urine. The patient notes that she had a recent episode of diverticulitis for which she was treated with antibiotics and no surgical intervention. She notes that she did complete her antibiotics as prescribed. With her current presentation she denies any abdominal pain. She does note some dysuria for approximately the past week. She denies any fevers, shakes, or chills. No nausea or vomiting have been reported. Patient notes that she has had a colonoscopy in the past but could not report the date. She notes that there was no significant pathology noted on the study. Patient has had prior abdominal surgeries in the form of a hysterectomy and cholecystectomy. It is noteworthy to mention that she is also received pelvic radiation secondary to bone metastases from metastatic breast cancer. Since arrival to the emergency department the patient had a CT scan of the abdomen pelvis that showed findings concerning for acute sigmoid diverticulitis with a 6.2 x 5.3 cm focus of stool and gas along the mid sigmoid colon concerning for contained perforation. There is also concern that this contained perforation communicated with the bladder concerning for a colovesical fistula. There is stool and gas noted in the bladder measuring approximate 4.5 x 2 cm with a pocket of extraluminal gas adjacent to the proximal sigmoid colon representing a contained perforation. Her labs included a CBC her white blood cell count was 3.4. Hemoglobin hematocrit were 9.1 and 26.9. Platelet count was normal. Chemistry profile showed sodium and potassium were normal. Her BUN and creatinine were 36 and 0.9. There is no significant elevation of LFTs or lipase. Urinalysis was positive for nitrites and greater than 30 white blood cells per high-power field. There is 4+ bacteria on the study. A COVID test was negative. Patient has received antibiotics in form of Zosyn since arrival. She was in no distress at the time of my interview. Allergies Allergy/AdvReac Type Severity Reaction Status Date / Time No Known Allergies Allergy Verified 06/19/22 19:31 Home Medications Medication Instructions Recorded Confirmed Type cholecalciferol (vitamin D3) 125 5,000 unit PO QDL 04/25/18 06/19/22 History mcg (5,000 unit) capsule multivitamin with minerals 1 tab PO QDL 02/12/19 06/19/22 History hydroxychloroquine 200 mg tablet 200 mg PO BID 09/05/19 06/19/22 History (Plaquenil) Lift chair #1 ea 08/22/20 04/28/22 Rx magnesium oxide 400 mg PO DAILY PRN LEG CRAMPS 10/27/20 06/19/22 History duloxetine 60 mg capsule,delayed 60 mg PO DAILY #90 caps 07/07/21 06/19/22 Rx release calcium carbonate 600 mg calcium 1,200 mg PO BID 08/28/21 06/19/22 History (1,500 mg) tablet (Calcium) CPAP Machine #1 ea 09/08/21 04/28/22 Rx atorvastatin 10 mg tablet 10 mg PO DAILY #90 tabs 09/15/21 06/19/22 Rx allopurinol 100 mg tablet 100 mg PO QAM 03/23/22 06/19/22 History dexamethasone 4 mg tablet 4 mg PO DAILY 04/27/22 06/19/22 History lidocaine 4 % topical patch 1 patch topical DAILY 04/28/22 06/19/22 History polyethylene glycol 3350 17 17 g PO DAILY 04/28/22 06/19/22 History gram/dose oral powder (Miralax) fentanyl 50 mcg/hr transdermal 50 mcg transdermal Q3D #5 ea 06/01/22 06/19/22 Rx patch gabapentin 300 mg capsule 300 mg PO BID #60 caps 06/01/22 06/19/22 Rx olmesartan 20 mg tablet 20 mg PO DAILY #30 tabs 06/01/22 06/19/22 Rx acetaminophen 325 mg tablet 650 mg PO Q6H PRN PAIN/FEVER 06/19/22 06/19/22 History (Tylenol) aluminum-mag hydroxide-simethicone 30 ml PO Q4H PRN Nausea 06/19/22 06/19/22 History 400 mg-400 mg-40 mg/5 mL oral susp (Maalox Maximum Strength) amoxicillin 875 mg-potassium 1 tab PO BID 06/19/22 06/19/22 History clavulanate 125 mg tablet bisacodyl 5 mg tablet,delayed 10 mg PO QAM 06/19/22 06/19/22 History release bumetanide 2 mg tablet 2 mg PO QAM 06/19/22 06/19/22 History hydrochlorothiazide 25 mg tablet 25 mg PO QAM 06/19/22 06/19/22 History lorazepam 0.5 mg tablet 0.5 mg PO Q12H PRN Anxiety 06/19/22 06/19/22 History menthol 0.44 %-zinc oxide 20.6 % 1 applic topical TID 06/19/22 06/19/22 History topical ointment (Calmoseptine) nystatin 100,000 unit/gram topical 1 applic topical BID 06/19/22 06/19/22 History powder omeprazole 20 mg tablet,delayed 20 mg PO BID 06/19/22 06/19/22 History release ondansetron HCl 4 mg tablet 4 mg PO Q4H PRN NAUSEA/VOMITING 06/19/22 06/19/22 History oxycodone 30 mg tablet,crush 30 mg PO Q12H 06/19/22 06/19/22 History resistant,extended release 12 hr (OxyContin) oxycodone 5 mg tablet 10 mg PO Q4H PRN PAIN--MOD-SEVERE 06/19/22 06/19/22 History phenazopyridine 100 mg tablet 100 mg PO TID 06/19/22 06/19/22 History (Pyridium) potassium chloride 20 mEq 20 meq PO BID 06/19/22 06/19/22 History tablet,extended release prochlorperazine maleate 10 mg 10 mg PO Q4H PRN NAUSEA/VOMITING 06/19/22 06/19/22 History tablet Patient History Medical History Claudication of both lower extremities Depression GERD (gastroesophageal reflux disease) controlled Hiatal hernia Hyperlipidemia Hypertension Inflammatory polyarthritis Malignant neoplasm of upper-inner quadrant of left breast in female, estrogen receptor negative (04/24/19) Nocturnal hypoxemia Obesity, morbid, BMI 40.0-49.9 Rheumatoid arthritis on Plaquenil/prednisone 5mg daily chronic (mostly affects spine/hip/knee locations, no cervical issues) Spinal stenosis, lumbar region with neurogenic claudication Surgical History Difficult airway for intubation WITH BREAST SURGERY 05/2019 [facility] History of cholecystectomy History of colonoscopy History of esophagogastroduodenoscopy (EGD) History of lumpectomy of left breast partial History of open reduction and internal fixation (ORIF) procedure right wrist History of tonsillectomy and adenoidectomy History of total abdominal hysterectomy and bilateral salpingo-oophorectomy History of total hip arthroplasty RIGHT 10/2020 History of vascular access device present right chest Status post right foot surgery Family History Mother , age 77 CHF Family history of diabetes mellitus Hypertension Family history of cardiac disorder Diabetes type 2 Deep vein thrombosis Brother , age 49 colon cancer Family hx of colon cancer Colorectal cancer Grandfather Family hx of colon cancer PATERNAL Father , age 60 cardiac arrest Family history of cardiac disorder Myocardial infarction Sister Family history of malignant neoplasm Breast cancer, Onset Age: 50 Son Allergic rhinitis Coronary heart disease Son No problems noted. 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 [employer] How many Children do You have: 3 Feels Safe at Home: Yes Childhood Exposure to Second-Hand Smoke: Yes Diet Comment: low sodium caffeine: Yes during the past year weight has: other Dental Care, Regularly: Yes Physical Activity Frequency: 1-2 Times per Week Seatbelt Use: always Sunscreen Use: Yes (sometimes) Assistive Devices: Cane and Walker Review of Systems Constitutional: no fever and no chills Eyes: no eye pain Ear, Nose, Mouth, Throat: no ear pain Respiratory: no cough and no dyspnea Cardiovascular: no chest pain Gastrointestinal: no abdominal pain, no nausea and no vomiting Genitourinary: as per Subjective / HPI Musculoskeletal: no back pain Integumentary: no rash Neurologic: no localized weakness Physical Exam Constitutional: well developed and well nourished; no acute distress Eyes: no conjunctival abnormality ENMT: Ears: no hearing impairment and no external ear abnormality Mouth: no oropharynx abnormality Neck: trachea midline Respiratory: normal respiratory effort; no respiratory distress and no labored breathing Cardiovascular: Rate/Rhythm: regular rate and regular rhythm Gastrointestinal (Abdomen): Patient did have some minor suprapubic discomfort but overall her abdomen was soft, nondistended, and nonrigid. There is no rebound tenderness or guarding. Musculoskeletal: No calf tenderness Skin: no rashes Neurologic: moves all extremities Psychiatric: A+Ox3, euthymic affect Results & Data ([facility]) Vital Signs (Past 12 Hours) Vital Signs Temp Pulse Pulse Resp BP BP Pulse Ox 06/19/22 22:07 68 18 105/75 95 06/19/22 21:07 70 18 103/61 95 06/19/22 19:37 06/19/22 19:37 75 18 106/61 94 06/19/22 18:02 36.8 C 80 18 122/63 93 O2 Del Method 06/19/22 22:07 Room Air 06/19/22 21:07 Room Air 06/19/22 19:37 Room Air 06/19/22 19:37 Room Air 06/19/22 18:02 Room Air PG Care Time/CCT Total # of Minutes Spent Total Time Spent with Patient: Total time spent is greater than 50% in coordination of care (as documented) at patient's floor/unit and/or counseling patient: Coding Level of Care Code 91469 Inpt Consult Level 5 Diagnoses Colovesical fistula N32.1
[2022-06-19] MEDS: oxyCODONE HCL 15 MG TABCR (OxyCONTIN) PO SCH (23:21)
[2022-06-20] MEDS: CHECK fentaNYL PATCH PLACEMENT SCH ×3 (00:26→18:09)
[2022-06-20] MEDS: PIPERACILLIN/TAZOBACTAM 4.5 GM in DEXTROSE 5% 100 ML IV SCH ×3 (01:49→18:09)
[2022-06-20] MEDS: oxyCODONE HCL IR 5 MG TAB (IMMEDIATE RELEASE) PO PRN ×2 (04:58→12:24)
--- NOTE | 2022-06-20 05:58 | Surgery Progress Note ---
Date of Service June 20, 2022 Assessment & Plan (1) Colovesical fistula: Plan: The patient has been admitted on the hospitalist service. Recommend proceeding as follows: CT scan in the emergency department showed concern for sigmoid diverticulitis and concern for a colovesical fistula. Continue analgesics as needed Continue antiemetics as needed Continue n.p.o. status Continue broad-spectrum antibiotics in form of Zosyn Consideration should be given to placing patient on IV fluids while NPO. We will defer this to the primary service If patient would develop any difficulty voiding, Rivera catheter can be placed for bladder drainage We will continue to monitor the patient's clinical response to the above. It would be ideal to treat the patient's acute diverticulitis conservatively prior to entertaining any surgical intervention. If surgery is performed a comp, and procedure between general surgery and urology may need to be employed. As above. Patient seen. Had a long discussion with her and her daughter. Colovesical fistula in the face of recent radiation and current chemotherapy with leukopenia metastatic breast cancer , acute diverticulitis as well as obesity. Certainly it would not be safe to proceed with sigmoidectomy with repair of the bladder in the face of these comorbidities. She would almost certainly fail the surgery. The best course of action would be to proceed with a laparoscopic assisted diverting colostomy. Typically once things calm down we could potentially go in and resect the fistula and reconnect her colon. However in the face of stage IV breast cancer requiring ongoing chemotherapy we discuss ed the this may well never get reversed. I did discuss this with Dr. Jimenez of urology and he agrees. They are going to think things over. If they agree that this procedure should be done this admission. I could potentially perform early this week Admission and Anticipated Discharge Date Admission Date: June 19, 2022 Subjective Patient is resting comfortably in bed. She continues to deny abdominal pain. No nausea or vomiting has been noted. She denies any fevers, shakes, or chills. The patient notes that she is voiding without difficulty however she still notes feculent appearance of her urine. Physical Exam Gastrointestinal (Abdomen): Abdomen is soft, nondistended, nontender. There is no pain with palpation and no rebound tenderness or guarding. Results & Data ([facility]) Vital Signs (Past 12 Hours) Vital Signs Temp Pulse Pulse Resp BP BP Pulse Ox 06/19/22 22:44 36.5 C 60 18 161/72 H 100 06/19/22 22:07 68 18 105/75 95 06/19/22 21:07 70 18 103/61 95 06/19/22 19:37 06/19/22 19:37 75 18 106/61 94 06/19/22 18:02 36.8 C 80 18 122/63 93 O2 Del Method 06/19/22 22:44 Room Air 06/19/22 22:07 Room Air 06/19/22 21:07 Room Air 06/19/22 19:37 Room Air 06/19/22 19:37 Room Air 06/19/22 18:02 Room Air PG Care Time/CCT Total # of Minutes Spent Total Time Spent with Patient: Total time spent is greater than 50% in coordination of care (as documented) at patient's floor/unit and/or counseling patient: Coding Level of Care Code 50569 Subseq Hosp Care Lvl 3 Diagnoses Colovesical fistula N32.1
[2022-06-20 06:46] LABS: Hematocrit (blood only) 24.9 % (34.1-44.9); Hemoglobin 8.4 g/dl (12.0-16.0); Mean Platelet Volume 8.9 fL (9.4-12.3); Platelet Count 127 K/uL (130-400); White Blood Count 2.96 K/ul (4.8-10.8)
[2022-06-20] MEDS ORDERED: LACTATED RINGER'S 1,000 ML IV SCH (07:00)
[2022-06-20 07:08] LABS: BUN Creatinine Ratio 33.8 (10-20); Creatinine Clr Calc Pharmacy 71.7 ml/min; Est GFR (African American) 84.2 ml/min; Est GFR (Non-African American) 72.6 ml/min; Magnesium 1.9 mg/dl (1.7-2.4); Potassium 3.7 mmol/L (3.5-5.1)
--- NOTE | 2022-06-20 07:16 | Hospitalist Progress Note ---
Date of Service June 20, 2022 Assessment & Plan (1) Colovesical fistula: Plan: Pt is a 72 yo female with PMH of GERD, HTN, HLD, RA, and breast cx w/ mets to bone (in current palliative radiation) presenting due to almost one week of fecal matter in her urine. Urine culture 06/15 showed E. coli EBSL sensitive to zosyn. Colovesical fistula - CTAP shows acute diverticulitis w/ a colovesical fistula, moderate stool burden in colon w/o obstruction - continue zosyn - per uro/gen surg; clear fluids, continue ABX, planned surgical management w/ laparoscopic diverting colostomy after adequate infection tx (possibly early this week) - can consider betts if patient has urinary obstruction from fecal material in urine Diverticulitis - CTAP as above - continue w/ ABX treatment - will proceed w/ surgical intervention after tx of diverticulitis Anemia - Hgb during last admission was around 12 - 12.5, but was decreasing - Hgb upon admission 9.1. No signs of bleeding. Normocytic. - iron studies show normal iron at 98 w/ high ferritin at 458- aligns w/ anemia of chronic disease - Hgb today 8.4 - continue to monitor Lower leg edema - continue home bumex 2 mg every AM - last echo 10/2021 showed EF of 55-60% w/ normal LV systolic function and mild LVH Neoplasm related pain - doing fairly well after prior admission - continue fentanyl patch, OxyContin 30 mg BID, and oxycodone 10 mg q4hr PRN for breakthrough pain - pt last palliative radiation 06/17/2022 - Continue home bowel regimen Malignant 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 - follows with [facility] oncology - pt curious about Xgeva injections while hospitalized; she states she is due for it now but her Ca levels were too low. She is currently being supplemented with 2500 mg Ca BID Moderate obstructive sleep apnea - CPAP 13 cmH20 Anxiety and depression - Continue home duloxetine and lorazepam PRN Hypertension - during prior admission, HCTZ was stopped - continue home olmesartan - most recent BP 121/62 (2) Diverticulitis: (3) Neoplasm related pain: (4) Malignant 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: (5) Lower extremity edema: (6) Anemia: Plan FEN: clear liquids Code: DNR DVT ppx: lovenox 55 mg qAM (weight based) Dispo: med/surg, awaiting surgery after adequate infection tx Admission and Anticipated Discharge Date Admission Date: June 19, 2022 Supervising Physician Co-Signing Physician Notes Resident Physician Supervision Note: I independently interviewed and examined the patient and verified the araujo history and physical, reviewed labs and image studies and agree with resident findings and care plan. Subjective Pt is a 72 yo female with PMH of GERD, HTN, HLD, RA, and breast cx w/ mets to bone (in current palliative radiation) presenting due to almost one week of fecal matter in her urine. Pt overall feeling well. The most bothersome thing for her right now is related to her cancer pain. Otherwise, pt doing well. She denies chest pain, SOB, and leg pain. Physical Exam Constitutional: NAD. Vitals WNL. Eyes: no conjunctival abnormality Respiratory: CTA bilaterally. No rhonchi, wheezing, or crackles. Non labored breathing. Cardiovascular: RRR. No murmur noted. 1+ pitting edema in bilateral LE. Gastrointestinal (Abdomen): Nontender, +BS. No masses noted. Skin: no rashes, warm and dry Psychiatric: Alert. Mood and affect congruent. Results & Data Results & Data ([facility]) Vital Signs (Past 12 Hours) Vital Signs Temp Pulse Pulse Resp BP BP Pulse Ox 06/19/22 22:44 36.5 C 60 18 161/72 H 100 06/19/22 22:07 68 18 105/75 95 06/19/22 21:07 70 18 103/61 95 06/19/22 19:37 06/19/22 19:37 75 18 106/61 94 O2 Del Method 06/19/22 22:44 Room Air 06/19/22 22:07 Room Air 06/19/22 21:07 Room Air 06/19/22 19:37 Room Air 06/19/22 19:37 Room Air Resident Activity Tracking Resident Involvement: Resident Care Provided Care Provided: Adult Hospital Medicine
[2022-06-20 07:25] LABS: Ferritin 458.1 ng/ml (8-388)
[2022-06-20 07:31] LABS: Vitamin B12 1056 pg/ml (180-914)
[2022-06-20 07:38] LABS: Mean Corpuscular Hemoglobin 31.2 pg (25.0-34.0); Mean Corpuscular Hgb Conc 33.7 g/dL (32.0-36.0); Mean Corpuscular Volume 92.6 fL (80.0-100.0); Nucleated RBC # (auto) 0.04 K/uL (0-0); Nucleated RBC % (auto) 1.4 %; RDW Coefficient of Variation 14.6 % (11.5-14.5); RDW Standard Deviation 48.7 fL (36.4-46.3); Red Blood Count 2.69 M/uL (3.93-5.22)
[2022-06-20] MEDS: LIDOCAINE 5% 1 PATCH TD SCH (09:43)
[2022-06-20] MEDS: POLYETHYLENE (MIRALAX) 17 GM PACK PO SCH (09:54)
[2022-06-20] MEDS: bisacodyL 5 MG TABEC PO SCH (09:54)
[2022-06-20] MEDS: fentaNYL 50 MCG/HR TDSY TD SCH (09:55)
[2022-06-20] MEDS: allopurinoL 100 MG TAB PO SCH (09:55)
[2022-06-20] MEDS: CALCIUM CARBONATE 1250MG TAB PO SCH ×2 (10:02→20:15)
[2022-06-20] MEDS: BUMETANIDE 1 MG TAB PO SCH (10:02)
[2022-06-20] MEDS: dexAMETHasone 4 MG TAB PO SCH (10:02)
[2022-06-20] MEDS: ATORVASTATIN 10 MG TAB PO SCH (10:02)
[2022-06-20] MEDS: HYDROXYCHLOROQUINE SULFATE 200 MG TAB PO SCH ×2 (10:03→20:16)
[2022-06-20] MEDS: DULoxetine HCL 60 MG CAP PO SCH (10:03)
[2022-06-20] MEDS: GABAPENTIN 300 MG CAP PO SCH ×2 (10:03→20:14)
[2022-06-20] MEDS: OLMESARTAN MEDOXOMIL 20 MG TAB PO SCH (10:03)
[2022-06-20] MEDS: ENOXAPARIN INJ 60 MG/0.6 ML SYR SQ SCH (10:03)
[2022-06-20] MEDS: PANTOprazole 40 MG TAB PO SCH (10:04)
[2022-06-20] MEDS: POTASSIUM CHLORIDE CRTAB 20 MEQ TABCR PO SCH ×2 (10:04→18:09)
[2022-06-20] MEDS: NYSTATIN POWDER 15GM BTL EXT SCH ×2 (10:08→20:17)
[2022-06-20] MEDS: oxyCODONE HCL 15 MG TABCR (OxyCONTIN) PO SCH ×2 (10:08→20:15)
[2022-06-20] MEDS: CHOLECALCIFEROL 5,000 UNITS 125 MCG TAB PO SCH (10:24)
[2022-06-20] MEDS: MULTIVITAMIN TAB PO SCH (10:24)
[2022-06-20] MEDS: LORazepam 0.5 MG TAB PO PRN (11:34)
[2022-06-20] MEDS: HEPARIN 100 UNIT/ML 5ML FLUSH FLUSH PRN ×2 (12:23→22:16)
[2022-06-21] MEDS: CHECK fentaNYL PATCH PLACEMENT SCH ×4 (00:12→23:50)
[2022-06-21] MEDS: oxyCODONE HCL IR 5 MG TAB (IMMEDIATE RELEASE) PO PRN ×3 (00:42→22:44)
[2022-06-21] MEDS: PIPERACILLIN/TAZOBACTAM 4.5 GM in DEXTROSE 5% 100 ML IV SCH ×3 (01:50→18:06)
[2022-06-21] MEDS: HEPARIN 100 UNIT/ML 5ML FLUSH FLUSH PRN ×2 (05:52→06:15)
[2022-06-21 06:37] LABS: Hematocrit (blood only) 26.2 % (34.1-44.9); Hemoglobin 8.9 g/dl (12.0-16.0); Mean Corpuscular Hemoglobin 31.7 pg (25.0-34.0); Mean Corpuscular Volume 93.2 fL (80.0-100.0); Nucleated RBC # (auto) 0.06 K/uL (0-0); Nucleated RBC % (auto) 1.5 %; Platelet Count 142 K/uL (130-400); RDW Coefficient of Variation 14.6 % (11.5-14.5); RDW Standard Deviation 49.1 fL (36.4-46.3); Red Blood Count 2.81 M/uL (3.93-5.22); White Blood Count 4.11 K/ul (4.8-10.8)
[2022-06-21 07:03] LABS: BUN Creatinine Ratio 24.1 (10-20); Calcium 7.3 mg/dl (8.5-10.1); Creatinine Clr Calc Pharmacy 69.1 ml/min; Est GFR (African American) 80.5 ml/min; Est GFR (Non-African American) 69.5 ml/min; Potassium 3.3 mmol/L (3.5-5.1)
[2022-06-21 07:05] LABS: Basophils # (auto) 0.01 K/uL (0-0.2); Basophils % (auto) 0.2 %; Eosinophils # (auto) 0.01 K/uL (0-0.50); Eosinophils % (auto) 0.2 %; Immature Granulocytes # (auto) 0.27 K/uL (0.00-0.02); Immature Granulocytes % (auto) 6.6 %; Lymphocytes # (auto) 0.18 K/uL (1.2-3.4); Lymphocytes % (auto) 4.4 %; Monocytes # (auto) 0.42 K/uL (0.24-0.82); Monocytes % (auto) 10.2 %; Neutrophils # (auto) 3.22 K/uL (1.4-6.5); Neutrophils % (auto) 78.4 %; Polychromasia 1+
--- NOTE | 2022-06-21 07:08 | Hospitalist Progress Note ---
Date of Service June 21, 2022 Assessment & Plan (1) Colovesical fistula: Plan: Pt is a 72 yo female with PMH of GERD, HTN, HLD, RA, and breast cx w/ mets to bone (in current palliative radiation) presenting due to almost one week of fecal matter in her urine. Urine culture 06/15 showed E. coli EBSL sensitive to zosyn. Colovesical fistula - CTAP shows acute diverticulitis w/ a colovesical fistula, moderate stool burden in colon w/o obstruction - continue zosyn - urine culture 06/15 grew E. coli ESBL, repeat culture 06/19 grew 3 organisms, probable skin kana - per uro/gen surg; clear fluids, continue ABX - surgical management w/ laparoscopic diverting colostomy to be performed today Diverticulitis - CTAP as above - continue w/ ABX treatment - will proceed w/ surgical intervention Anemia - Hgb during last admission was around 12 - 12.5, but was decreasing - Hgb upon admission 9.1. No signs of bleeding. Normocytic. - iron studies show normal iron at 98 w/ high ferritin at 458- aligns w/ anemia of chronic disease - Hgb today 8.7 - continue to monitor Lower leg edema - continue home bumex 2 mg every AM - last echo 10/2021 showed EF of 55-60% w/ normal LV systolic function and mild LVH Neoplasm related pain - doing fairly well after prior admission - continue fentanyl patch, OxyContin 30 mg BID, and oxycodone 10 mg q4hr PRN for breakthrough pain - pt last palliative radiation 06/17/2022 - Continue home bowel regimen Malignant 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 - follows with [facility] oncology - pt curious about Xgeva injections while hospitalized; she states she is due for it now but her Ca levels were too low - she is currently being supplemented with 2500 mg Ca BID Moderate obstructive sleep apnea - CPAP 13 cmH20 Anxiety and depression - Continue home duloxetine and lorazepam PRN Hypertension - during prior admission, HCTZ was stopped - continue home olmesartan - most recent BP 121/62 (2) Diverticulitis: (3) Neoplasm related pain: (4) Malignant 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: (5) Lower extremity edema: (6) Anemia: Plan FEN: clear liquids, supplemented extra 20 meq K on top of 20 meq BID Code: DNR DVT ppx: lovenox 55 mg qAM (weight based) Dispo: med/surg, diverting colostomy to be performed today Admission and Anticipated Discharge Date Admission Date: June 19, 2022 Supervising Physician Co-Signing Physician Notes I personally examined the patient and verified all araujo points of history and exam, discussed case, and agree with decision making with Dr Johnson Feeling okay preop. Postop weak abdominal pain Vitals noted, in general preop she looks okay, postop she is a little bit pale and diaphoretic. Abdomen is mildly distended her incision sites are clean dry and intact, she has diffuse abdominal tenderness but no guarding rebound or rigidity. Her ostomy has scant bloody drainage Complicated UTI with colovesicular fistulanow status post diverting colostomy. Continue Zosyn. In regards to her hypotensionI suspect predominantly hypovolemia from the surgery, cannot rule out distributivealthough this would likely be from anesthetic and I would anticipate being short-lived. CBC/basic metabolic panelfollow from there. Fluid boluses. Blood if her hemoglobin is low and/or pressures stay soft Subjective Pt is a 72 yo female with PMH of GERD, HTN, HLD, RA, and breast cx w/ mets to bone (in current palliative radiation) presenting due to almost one week of fecal matter in her urine. Spoke with pt this morning at bedside. She is feeling well overall. Physical Exam Constitutional: NAD. Vitals WNL. Eyes: no conjunctival abnormality Respiratory: CTA bilaterally. No rhonchi, wheezing, or crackles. Non labored breathing. Cardiovascular: RRR. No murmur noted. 1+ pitting edema in bilateral lower extremities. Gastrointestinal (Abdomen): Nontender, +BS. No masses noted. Skin: no rashes, warm and dry Psychiatric: Alert. Mood and affect congruent. Results & Data Results & Data ([facility]) Vital Signs (Past 12 Hours) Vital Signs Temp Pulse Resp BP Pulse Ox Pulse Ox O2 Del Method 06/20/22 20:17 99 06/20/22 22:30 36.5 C 62 18 108/67 99 Room Air O2 Del Method 06/20/22 20:17 Room Air 06/20/22 22:30 Resident Activity Tracking Resident Involvement: Resident Care Provided Care Provided: Adult Hospital Medicine
[2022-06-21] MEDS ORDERED: POTASSIUM CHLORIDE CRTAB 20 MEQ TABCR PO ONE (07:12)
[2022-06-21] MEDS: LIDOCAINE 5% 1 PATCH TD SCH (07:48)
[2022-06-21] MEDS: PANTOprazole 40 MG TAB PO SCH (07:51)
[2022-06-21] MEDS: HYDROXYCHLOROQUINE SULFATE 200 MG TAB PO SCH ×2 (07:51→20:55)
[2022-06-21] MEDS: OLMESARTAN MEDOXOMIL 20 MG TAB PO SCH (07:51)
[2022-06-21] MEDS: GABAPENTIN 300 MG CAP PO SCH ×2 (07:51→20:55)
[2022-06-21] MEDS: DULoxetine HCL 60 MG CAP PO SCH (07:52)
[2022-06-21] MEDS: ENOXAPARIN INJ 60 MG/0.6 ML SYR SQ SCH (07:52)
[2022-06-21] MEDS: CALCIUM CARBONATE 1250MG TAB PO SCH ×2 (07:54→20:55)
[2022-06-21] MEDS: BUMETANIDE 1 MG TAB PO SCH (07:54)
[2022-06-21] MEDS: dexAMETHasone 4 MG TAB PO SCH (07:54)
[2022-06-21] MEDS: ATORVASTATIN 10 MG TAB PO SCH (07:55)
[2022-06-21] MEDS: oxyCODONE HCL 15 MG TABCR (OxyCONTIN) PO SCH ×2 (07:55→21:05)
[2022-06-21] MEDS: allopurinoL 100 MG TAB PO SCH (07:55)
[2022-06-21] MEDS: NYSTATIN POWDER 15GM BTL EXT SCH ×2 (07:56→21:06)
[2022-06-21] MEDS: bisacodyL 5 MG TABEC PO SCH (08:31)
[2022-06-21] MEDS: POLYETHYLENE (MIRALAX) 17 GM PACK PO SCH ×2 (08:32)
--- NOTE | 2022-06-21 09:41 | Anesthesiology Consultation ---
Date of Service June 21, 2022 Assessment & Plan (1) Encounter for pre-operative examination: Chart Review Chart Review: prospecting observer initiated History Surgery Operation Date: 06/21/22 13:25 Proposed Procedures p Laparoscopic Assisted Diverting Colostomy - Johnnie Villarreal DO Height/Weight Height: 5 ft 2 in Weight: 109 kg Allergies Allergy/AdvReac Type Severity Reaction Status Date / Time No Known Allergies Allergy Verified 06/19/22 19:31 Medications Home Medications Medication Instructions Recorded Confirmed Last Taken cholecalciferol (vitamin D3) 125 5,000 unit PO QDL 04/25/18 06/19/22 06/19/22 mcg (5,000 unit) capsule multivitamin with minerals 1 tab PO QDL 02/12/19 06/19/22 06/19/22 hydroxychloroquine 200 mg tablet 200 mg PO BID 09/05/19 06/19/22 06/19/22 (Plaquenil) Lift chair #1 ea 08/22/20 04/28/22 Unknown magnesium oxide 400 mg PO DAILY PRN LEG CRAMPS 10/27/20 06/19/22 03/08/21 08:00 duloxetine 60 mg capsule,delayed 60 mg PO DAILY #90 caps 07/07/21 06/19/22 06/19/22 release calcium carbonate 600 mg calcium 1,200 mg PO BID 08/28/21 06/19/22 06/19/22 (1,500 mg) tablet (Calcium) CPAP Machine #1 ea 09/08/21 04/28/22 Unknown atorvastatin 10 mg tablet 10 mg PO DAILY #90 tabs 09/15/21 06/19/22 06/19/22 allopurinol 100 mg tablet 100 mg PO QAM 03/23/22 06/19/22 06/19/22 dexamethasone 4 mg tablet 4 mg PO DAILY 04/27/22 06/19/22 06/19/22 lidocaine 4 % topical patch 1 patch topical DAILY 04/28/22 06/19/22 06/19/22 polyethylene glycol 3350 17 17 g PO DAILY 04/28/22 06/19/22 06/19/22 gram/dose oral powder (Miralax) fentanyl 50 mcg/hr transdermal 50 mcg transdermal Q3D #5 ea 06/01/22 06/19/22 06/17/22 patch gabapentin 300 mg capsule 300 mg PO BID #60 caps 06/01/22 06/19/22 06/19/22 olmesartan 20 mg tablet 20 mg PO DAILY #30 tabs 06/01/22 06/19/22 06/19/22 acetaminophen 325 mg tablet 650 mg PO Q6H PRN PAIN/FEVER 06/19/22 06/19/22 06/14/22 (Tylenol) aluminum-mag hydroxide-simethicone 30 ml PO Q4H PRN Nausea 06/19/22 06/19/22 Unknown 400 mg-400 mg-40 mg/5 mL oral susp (Maalox Maximum Strength) amoxicillin 875 mg-potassium 1 tab PO BID 06/19/22 06/19/22 06/19/22 clavulanate 125 mg tablet bisacodyl 5 mg tablet,delayed 10 mg PO QAM 06/19/22 06/19/22 06/19/22 release bumetanide 2 mg tablet 2 mg PO QAM 06/19/22 06/19/22 06/19/22 hydrochlorothiazide 25 mg tablet 25 mg PO QAM 06/19/22 06/19/22 06/19/22 lorazepam 0.5 mg tablet 0.5 mg PO Q12H PRN Anxiety 06/19/22 06/19/22 06/18/22 22:00 menthol 0.44 %-zinc oxide 20.6 % 1 applic topical TID 06/19/22 06/19/22 06/19/22 09:00 topical ointment (Calmoseptine) nystatin 100,000 unit/gram topical 1 applic topical BID 06/19/22 06/19/22 06/19/22 powder omeprazole 20 mg tablet,delayed 20 mg PO BID 06/19/22 06/19/22 06/19/22 release ondansetron HCl 4 mg tablet 4 mg PO Q4H PRN NAUSEA/VOMITING 06/19/22 06/19/22 06/11/22 oxycodone 30 mg tablet,crush 30 mg PO Q12H 06/19/22 06/19/22 06/19/22 08:30 resistant,extended release 12 hr (OxyContin) oxycodone 5 mg tablet 10 mg PO Q4H PRN PAIN--MOD-SEVERE 06/19/22 06/19/22 Unknown phenazopyridine 100 mg tablet 100 mg PO TID 06/19/22 06/19/22 06/19/22 12:30 (Pyridium) potassium chloride 20 mEq 20 meq PO BID 06/19/22 06/19/22 06/19/22 tablet,extended release prochlorperazine maleate 10 mg 10 mg PO Q4H PRN NAUSEA/VOMITING 06/19/22 06/19/22 Unknown tablet Active Medications Generic Name Dose Route Start Last Admin Trade Name Jonathanq PRN Reason Stop Dose Admin Allopurinol 100 mg 06/20/22 09:00 06/21/22 07:55 Allopurinol 100 Mg Tab PO 07/20/22 08:59 100 mg QAM JANE Administration Atorvastatin Calcium 10 mg 06/20/22 09:00 06/21/22 07:55 Atorvastatin 10 Mg Tab PO 07/20/22 08:59 10 mg DAILY JANE Administration Bisacodyl 10 mg 06/20/22 09:00 06/21/22 08:31 Bisacodyl 5 Mg Tabec PO 07/20/22 08:59 10 mg QAM JANE Administration Bumetanide 2 mg 06/20/22 09:00 06/21/22 07:54 Bumetanide 1 Mg Tab PO 07/20/22 08:59 2 mg QAM JANE Administration Calcium Carbonate 2,500 mg 06/20/22 09:00 06/21/22 07:54 Calcium Carbonate 1250mg Tab PO 07/20/22 08:59 2,500 mg BID JANE Administration Dexamethasone 4 mg 06/20/22 09:00 06/21/22 07:54 Dexamethasone 4 Mg Tab PO 07/20/22 08:59 4 mg DAILY JANE Administration Duloxetine HCl 60 mg 06/20/22 09:00 06/21/22 07:52 Duloxetine Hcl 60 Mg Cap PO 07/20/22 08:59 60 mg DAILY JNAE Administration Enoxaparin Sodium 60 mg 06/20/22 09:00 06/21/22 07:52 Enoxaparin Inj 60 Mg/0.6 Ml Syr SQ 07/20/22 08:59 60 mg QAM JANE Administration Fentanyl 50 mcg 06/20/22 09:00 06/20/22 09:55 Fentanyl 50 Mcg/Hr Tdsy TD 07/04/22 08:59 50 mcg Q3D@0900 JANE Administration Gabapentin 300 mg 06/20/22 09:00 06/21/22 07:51 Gabapentin 300 Mg Cap PO 07/20/22 08:59 300 mg BID JANE Administration Heparin Sodium (Porcine) 5 ml 06/20/22 06:29 06/21/22 06:15 Heparin 100 Unit/Ml 5ml Flush FLUSH 07/20/22 06:28 5 ml PRN PRN Administration Flush Hydroxychloroquine Sulfate 200 mg 06/20/22 09:00 06/21/22 07:51 Hydroxychloroquine Sulfate 200 Mg Tab PO 07/20/22 08:59 200 mg BID JANE Administration Piperacillin Sod/Tazobactam 120 mls @ 30 mls/hr 06/20/22 02:00 06/21/22 06:00 Sod 4.5 gm/ Dextrose IV 06/30/22 01:59 Infused Q8H JANE Infusion Protocol Lactated Ringer's 1,000 mls @ 125 mls/hr 06/20/22 07:00 06/20/22 12:19 Lr IV 07/20/22 06:59 Infused .Q8H JANE Infusion Lidocaine 1 patch 06/20/22 09:00 06/21/22 07:48 Lidocaine 5% 1 Patch TD 07/20/22 08:59 Not Given DAILY JANE Lorazepam 0.5 mg 06/19/22 22:35 06/20/22 11:34 Lorazepam 0.5 Mg Tab PO 07/19/22 22:34 0.5 mg TID PRN Administration Anxiety Miscellaneous 1 each 06/20/22 08:59 06/20/22 09:39 Fentanyl Patch Remove & Waste N/A 07/20/22 08:58 1 each Q3D@0859 JANE Administration Miscellaneous 1 each 06/20/22 00:00 06/21/22 07:37 Check Fentanyl Patch Placement N/A 07/20/22 00:00 1 each QS JANE Administration Miscellaneous 1 each 06/19/22 23:00 06/20/22 20:18 Remove Lidoderm Patch N/A 07/19/22 22:59 Not Given HS JANE Multivitamins 1 tab 06/20/22 11:30 06/20/22 10:24 Multivitamin Tab PO 07/20/22 11:29 1 tab QDL JANE Administration Nystatin 1 appln 06/20/22 09:00 06/21/22 07:56 Nystatin Powder 15gm Btl EXT 07/20/22 08:59 1 appln BID JANE Administration Olmesartan 20 mg 06/20/22 09:00 06/21/22 07:51 Olmesartan Medoxomil 20 Mg Tab PO 07/20/22 08:59 20 mg DAILY JANE Administration Oxycodone HCl 10 mg 06/19/22 22:51 06/21/22 05:45 Oxycodone Hcl Ir 5 Mg Tab (Immediate Release) PO 07/03/22 22:50 10 mg Q4H PRN Administration PAIN--MOD-SEVERE Oxycodone HCl 30 mg 06/19/22 22:35 06/21/22 07:55 Oxycodone Hcl 15 Mg Tabcr (Oxycontin) PO 07/03/22 22:34 30 mg BID JANE Administration Pantoprazole Sodium 40 mg 06/20/22 09:00 06/21/22 07:51 Pantoprazole 40 Mg Tab PO 07/20/22 08:59 40 mg QAM JANE Administration Polyethylene Glycol 17 gm 06/20/22 09:00 06/21/22 08:32 Polyethylene (Miralax) 17 Gm Pack PO 07/20/22 08:59 Not Given DAILY JANE Potassium Chloride 20 meq 06/20/22 09:00 06/20/22 18:09 Potassium Chloride Crtab 20 Meq Tabcr PO 07/20/22 08:59 20 meq BID17 JANE Administration Vitamin D 5,000 units 06/20/22 11:30 06/20/22 10:24 Cholecalciferol 5,000 Units 125 Mcg Tab PO 07/20/22 11:29 5,000 units QDL JANE Administration Past Medical History Medical History Claudication of both lower extremities Depression GERD (gastroesophageal reflux disease) controlled Hiatal hernia Hyperlipidemia Hypertension Inflammatory polyarthritis Malignant neoplasm of upper-inner quadrant of left breast in female, estrogen receptor negative (04/24/19) Nocturnal hypoxemia Obesity, morbid, BMI 40.0-49.9 Rheumatoid arthritis on Plaquenil/prednisone 5mg daily chronic (mostly affects spine/hip/knee locations, no cervical issues) Spinal stenosis, lumbar region with neurogenic claudication Past Family History Family History Mother , age 77 CHF Family history of diabetes mellitus Hypertension Family history of cardiac disorder Diabetes type 2 Deep vein thrombosis Brother , age 49 colon cancer Family hx of colon cancer Colorectal cancer Grandfather Family hx of colon cancer PATERNAL Father , age 60 cardiac arrest Family history of cardiac disorder Myocardial infarction Sister Family history of malignant neoplasm Breast cancer, Onset Age: 50 Son Allergic rhinitis Coronary heart disease Son No problems noted. Denies family history of Ovarian cancer Past Surgical History Surgical History Difficult airway for intubation WITH BREAST SURGERY 05/2019 [facility] History of cholecystectomy History of colonoscopy History of esophagogastroduodenoscopy (EGD) History of lumpectomy of left breast partial History of open reduction and internal fixation (ORIF) procedure right wrist History of tonsillectomy and adenoidectomy History of total abdominal hysterectomy and bilateral salpingo-oophorectomy History of total hip arthroplasty RIGHT 10/2020 History of vascular access device present right chest Status post right foot surgery Social History Smoking Status: Never smoker Hx Alcohol Use: No Alcohol type: wine alcohol intake frequency: a few times a week Hx Substance Use: No substance use type: prescription drug Physical Exam Vital Signs Last Vital Signs Temp 97.3 F L 06/21/22 07:46 Pulse 68 06/21/22 07:46 Resp 20 06/21/22 07:46 BP 126/70 06/21/22 07:46 Pulse Ox 97 06/21/22 07:46 O2 Del Method 06/21/22 07:46 Testing Laboratory Results 06/21/22 06:12 06/21/22 06:12 Urine Color Dark Yellow 06/19/22 18:45 Urine Appearance Turbid (Clear) A 06/19/22 18:45 Urine pH 8.5 (4.5-7.5) H 06/19/22 18:45 Ur Specific [place] 1.015 (1.000-1.030) 06/19/22 18:45 Urine Protein 1+ (Negative) H 06/19/22 18:45 Urine Glucose (UA) Negative (Negative) 06/19/22 18:45 Urine Ketones Negative (Negative) 06/19/22 18:45 Urine Nitrite Positive (Negative) A 06/19/22 18:45 Ur Leukocyte Esterase 3+ (Negative) H 06/19/22 18:45 Urine RBC >30 /hpf (0-4) H 06/19/22 18:45 Urine WBC >30 /hpf (0-5) H 06/19/22 18:45 Ur Epithelial Cells 5-10 /lpf (0-5) H 06/19/22 18:45 06/19/22 18:45 Urine Culture - Preliminary Urine,Clean Catch No growth - Less than 1,000 colonies/mL, Final report to follow. Electrocardiogram Date: 05/18/22 Normal sinus rhythm, rate 73 bpm Normal ECG When compared with ECG of 20-APR-2022 23:27, No significant change Confirmed by Luis Ann ([id number]) on 05/19/2022 8:16:29 AM Chest X-Ray Date: 01/22/22 Findings: + NAD Echocardiogram Date: 11/26/21 LV systolic function is normal No regional wall motion abnormalities Mild concentric LVH EF 55-60% Compared with study of 09/28/19, no significant change
[2022-06-21] MEDS: ONDANSETRON 4 MG OD TAB PO PRN ×2 (10:07→18:52)
[2022-06-21] MEDS: POTASSIUM CHLORIDE CRTAB 20 MEQ TABCR PO SCH ×2 (10:07→18:39)
[2022-06-21] MEDS: CHOLECALCIFEROL 5,000 UNITS 125 MCG TAB PO SCH (11:31)
[2022-06-21] MEDS: MULTIVITAMIN TAB PO SCH (11:31)
--- NOTE | 2022-06-21 11:54 | Surgery Progress Note ---
Date of Service June 21, 2022 Assessment & Plan (1) Perforated diverticulum: (2) Diverticulitis: (3) Bladder fistula: Plan: I discussed with her oncologist Dr. Prakash as well as Dr. Jimenez from urology. Everyone is in agreement that a diverting colostomy would be the best option. Had a long discussion with her and her family again this morning. I have answered all their questions. We discussed risks which include bleeding, infection, injury to other organ, DVT, PE, [place], CVA etc. Following our discussion I answered all their questions. They agreed to the plan. She has not eaten today so we will schedule her for this afternoon for laparoscopic assi sted diverting colostomy. (4) Malignant 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: (5) Moderate obstructive sleep apnea: (6) Chronic diastolic CHF (congestive heart failure): Admission and Anticipated Discharge Date Admission Date: June 19, 2022 Subjective Patient seen. No major changes overnight. Physical Exam Constitutional: WD/WN, vitals as above no acute distress and not ill appear ing Eyes: PERRL, conjunctivae normal, anicteric sclerae EOM intact bilaterally ENMT: external ear and nose normal, oropharynx normal Ears: no hearing impairment Neck: trachea midline, no thyromegaly Respiratory: normal respiratory effort; no respiratory distress and does not use accessory muscles Cardiovascular: Rate/Rhythm: regular rate and regular rhythm Gastrointestinal (Abdomen): Soft. Nontender. No guarding. Skin: no rashes, warm and dry Psychiatric: Orientation: alert, oriented x 3 and cooperative Results & Data ([facility]) Vital Signs (Past 12 Hours) Vital Signs Temp Pulse Resp BP Pulse Ox O2 Del Method 06/21/22 07:46 36.3 C L 68 20 126/70 97 Room Air PG Care Time/CCT Total # of Minutes Spent Total Time Spent with Patient: Total time spent is greater than 50% in coordination of care (as documented) at patient's floor/unit and/or counseling patient: Coding Level of Care Code 19765 Subseq Hosp Care Lvl 3 Diagnoses Perforated diverticulum K57.80 Diverticulitis K57.92 Bladder fistula N32.2 Malignant 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 C50.919; C79.51 Moderate obstructive sleep apnea G47.33 Chronic diastolic CHF (congestive heart failure) I50.32
[2022-06-21] MEDS ORDERED: ATROPINE SULFATE 0.1 MG/ML 10ML SYR IV PRN (12:39)
[2022-06-21] MEDS ORDERED: ePHEDrine sulfate 50 MG/ML AMP IV PRN (12:39)
[2022-06-21] MEDS ORDERED: ONDANSETRON INJ 2 MG/ML 2 ML VIAL IV PRN (12:39)
[2022-06-21] MEDS ORDERED: fentaNYL citrate 100 MCG/2 ML VIAL ONE (12:41)
[2022-06-21] MEDS ORDERED: BUPIVACAINE/EPINEPHRINE 0.5% MPF 1:200,000 30 ML VIAL ONE (12:51)
[2022-06-21] MEDS ORDERED: SODIUM CHLORIDE 0.9% 250 ML IV PRN ×2 (14:01→19:33)
[2022-06-21] MEDS ORDERED: PHENYLEPHRINE HCL 10 MG/ML VIAL ONE (14:10)
[2022-06-21] MEDS ORDERED: NEOSTIGMINE METHYLSULFATE 1 MG/ML 10ML VIAL ONE (14:10)
[2022-06-21] MEDS ORDERED: GLYCOPYRROLATE 0.2 MG/ML VIAL ONE (14:10)
[2022-06-21] MEDS ORDERED: ONDANSETRON INJ 2 MG/ML 2 ML VIAL ONE (14:10)
[2022-06-21] MEDS ORDERED: DEXAMETHASONE SOD INJ 4 MG/ML VIAL ONE (14:10)
[2022-06-21] MEDS ORDERED: PROPOFOL IV EMULSION 10 MG/ML 20 ML VIAL IV ONE (14:10)
[2022-06-21] MEDS ORDERED: ROCURONIUM BROMIDE 10 MG/ML 5 ML VIAL IV ONE (14:10)
[2022-06-21] MEDS ORDERED: ePHEDrine sulfate 50 MG/ML AMP ONE (14:10)
[2022-06-21 14:17] LABS: Hematocrit (blood only) 25.7 % (34.1-44.9); Hemoglobin 8.7 g/dl (12.0-16.0); Mean Corpuscular Hemoglobin 31.4 pg (25.0-34.0); Mean Corpuscular Hgb Conc 33.9 g/dL (32.0-36.0); Mean Corpuscular Volume 92.8 fL (80.0-100.0); Mean Platelet Volume 8.8 fL (9.4-12.3); Nucleated RBC # (auto) 0.06 K/uL (0-0); Platelet Count 155 K/uL (130-400); RDW Coefficient of Variation 14.4 % (11.5-14.5); RDW Standard Deviation 48.4 fL (36.4-46.3); Red Blood Count 2.77 M/uL (3.93-5.22); White Blood Count 6.07 K/ul (4.8-10.8)
--- NOTE | 2022-06-21 14:41 | Operative Report ---
PG Post Operative Report Pre & Post Diagnosis Operation Date: 06/21/22 13:25 Pre-Op Diagnosis: colovesicular fistula Post-Op Diagnosis: colovesicular fistula I identified the patient and participated in the time-out.: Yes Procedure Operation Date: 06/21/22 13:25 Actual Procedures p Laparoscopic Assisted Diverting Colostomy(Not Applicable) - Johnnie Lobato on, DO Surgeon Johnnie Villarreal, DO Final Dressing Cutter devan Oconnell Estimated Blood Loss 50 Findings Consistent with Post-Op Diagnosis Specimens none Description of Procedure After informed consent was obtained the patient was taken the operating room and placed in supine position. After successful intubation the abdomen was sterilely prepped and draped in usual fashion. Supraumbilical incision was made with 11 blade scalpel and carried down through the soft tissue using cautery. Anterior fascia was opened using cautery and two #0 Vicryl stay sutures were placed. Peritoneum was entered using blunt finger penetration and a finger sweep was performed. 12 mm garcia trocar was placed and the abdomen was insufflated to 18 mmHg. Laparoscope was inserted and the abdomen examined 360 degrees. A right lower quadrant 12 mm port and a right mid abdominal 12 mm port and eventually a left mid abdominal 5 mm port were placed. The fistula was visible. It was a rather large surface area of contact between the sigmoid colon and bladder. I was able to use traction and the harmonic scalpel to mobilize the white line of Toldt. I then used a RISHI purple cartridge 60 mm stapler to transect the colon proximal to the area of inflammation. We then mobilized the mesentery for several inches. We then grasped this with a grasper. We noted that there was some bleeding from the 1 right mid abdominal 12 mm trocar. Fascial closure device with 0 Vicryl was used to close this fascia and control the bleeding. We then removed all the trochars and desufflated the abdomen. We extended the 5 mm trocar laterally and medially. I opened the fascia using cautery and I was able to deliver the stapled end of the proximal left colon out. The staple lines were removed and the stoma was created in Kelsey fashion using 3-0 Monocryl. Our gloves were then changed. An appliance was placed. The fascia of the camera port was closed using 0 Vicryl in [id number] fashion. Incisions were all irrigated and closed using 4-0 Monocryl. Marcaine with epinephrine was injected around it for postoperative analgesia and skin glue used as a dressing. Patient was awakened extubated and transferred to recovery in stable condition. My physician assistant professor of dietetics was present for the entire case was instrumental in running the camera providing exposure assisting with the stoma formation and wound closure. I attest to the content of the Intraoperative Record and any orders documented therein. Any exceptions are noted below.
[2022-06-21] MEDS: fentaNYL citrate 100 MCG/2 ML VIAL IV PRN ×4 (14:53→15:17)
[2022-06-21] MEDS ORDERED: ACETAMINOPHEN 1,000 MG/100 ML VIAL IV STA (15:17)
[2022-06-21] MEDS ORDERED: ACETAMINOPHEN 1000 MG/100 ML IV IV ONE (15:19)
[2022-06-21] MEDS ORDERED: fentaNYL citrate 100 MCG/2 ML VIAL IV ONE ×2 (15:42→15:43)
--- NOTE | 2022-06-21 15:47 | Anesthesiology Progress Note ---
Date of Service June 21, 2022 Anesthesia Post Procedure Vital Signs Vital Signs: Temp Pulse Pulse Resp BP Pulse Ox Pulse Ox 06/21/22 15:35 77 27 H 93/50 L 98 06/21/22 15:25 79 25 H 91/47 L 97 06/21/22 15:15 77 24 95/47 L 98 06/21/22 15:05 73 23 104/60 95 06/21/22 14:55 75 22 75/39 L 92 06/21/22 14:45 70 19 94/52 L 92 06/21/22 14:36 36.6 C 72 16 92/56 L 94 06/21/22 11:57 36.5 C 75 18 95/50 L 94 06/21/22 11:35 36.6 C 75 18 112/66 96 06/21/22 07:46 36.3 C L 68 20 126/70 97 06/20/22 20:17 99 06/20/22 22:30 36.5 C 62 18 108/67 99 O2 Del Method O2 Del Method O2 Flow Rate 06/21/22 15:35 Nasal Cannula 2 06/21/22 15:25 Nasal Cannula 3 06/21/22 15:15 Nasal Cannula 3 06/21/22 15:05 Nasal Cannula 3 06/21/22 14:55 Nasal Cannula 2 06/21/22 14:45 Oxymask 5 06/21/22 14:36 Oxymask 9 06/21/22 11:57 Room Air 06/21/22 11:35 Room Air 06/21/22 07:46 Room Air 06/20/22 20:17 Room Air 06/20/22 22:30 Room Air Pain Intensity Generalized: Pain Intensity: 6 Abdomen: Pain Intensity: 8 Transfer of Care Handoff Completed per policy Notes Mental Status: alert / awake / arousable Patient Amnestic to Procedure: Yes Nausea / Vomiting: adequately controlled Pain: adequately controlled Airway Patency, RR, SpO2: stable & adequate BP & HR: stable & adequate Hydration State: stable & adequate Anesthetic Complications: no major complications apparent Notes: pain is improving with iv narcotics and iv tylenol; it is nearing her baseline pain levels. she was somewhat hypotensive in the pacu, treated with IV fluids and phenylephrine. No longer requiring pressors. attributed to fluid deficient status and this mornings olmesartan dose. h&h checked post operatively due to pacu hypotension and preexisting anemia, no change from preoperative status. ok for floor transfer
[2022-06-21] MEDS ORDERED: MoRPHine SULFATE 4 MG/ML 1 ML CARP\\VIAL IV PRN (16:35)
[2022-06-21] MEDS ORDERED: SODIUM CHLORIDE 0.9% 1000ML 1,000 ML IV ONE ×2 (17:10→17:53)
[2022-06-21] MEDS: NSS + 20MEQ KCL 20 MEQ/1,000 ML BAG IV SCH (18:06)
[2022-06-21] MEDS: MoRPHine SULFATE 2 MG/ML CARP IV PRN ×2 (18:07→20:51)
[2022-06-21 19:23] LABS: Hemoglobin 7.4 g/dl (12.0-16.0); Mean Corpuscular Hemoglobin 31.6 pg (25.0-34.0); Mean Corpuscular Hgb Conc 33.6 g/dL (32.0-36.0); Mean Platelet Volume 8.8 fL (9.4-12.3); Nucleated RBC # (auto) 0.06 K/uL (0-0); Nucleated RBC % (auto) 0.8 %; Platelet Count 141 K/uL (130-400); RDW Coefficient of Variation 14.6 % (11.5-14.5); RDW Standard Deviation 49.3 fL (36.4-46.3); Red Blood Count 2.34 M/uL (3.93-5.22); White Blood Count 7.83 K/ul (4.8-10.8)
--- NOTE | 2022-06-21 19:32 | Billing Data ---
Date of Service June 21, 2022 Coding Level of Care Code 76756 Subseq Hosp Care Lvl 3
[2022-06-21 19:40] LABS: Calcium 6.4 mg/dl (8.5-10.1); Est GFR (African American) 76.1 ml/min; Est GFR (Non-African American) 65.6 ml/min; Potassium 3.8 mmol/L (3.5-5.1)
[2022-06-21 19:57] LABS: Basophils # (auto) 0.03 K/uL (0-0.2); Basophils % (auto) 0.4 %; Immature Granulocytes # (auto) 0.34 K/uL (0.00-0.02); Immature Granulocytes % (auto) 4.3 %; Lymphocytes # (auto) 0.14 K/uL (1.2-3.4); Lymphocytes % (auto) 1.8 %; Microcytosis Present; Monocytes # (auto) 0.39 K/uL (0.24-0.82); Neutrophils # (auto) 6.93 K/uL (1.4-6.5); Neutrophils % (auto) 88.5 %; Toxic Granulation 1+
[2022-06-22 00:45] LABS: Hematocrit (blood only) 25.3 % (34.1-44.9); Hemoglobin 8.7 g/dl (12.0-16.0)
[2022-06-22 01:16] LABS: Calcium 6.2 mg/dl (8.5-10.1); Creatinine Clr Calc Pharmacy 63.1 ml/min; Est GFR (Non-African American) 62.2 ml/min; Potassium 4.1 mmol/L (3.5-5.1)
[2022-06-22] MEDS: MoRPHine SULFATE 2 MG/ML CARP IV PRN ×2 (01:30→10:38)
[2022-06-22] MEDS: PIPERACILLIN/TAZOBACTAM 4.5 GM in DEXTROSE 5% 100 ML IV SCH ×3 (01:37→17:09)
[2022-06-22] MEDS ORDERED: MoRPHine SULFATE 2 MG/ML CARP IV STA (02:14)
[2022-06-22] MEDS: oxyCODONE HCL IR 5 MG TAB (IMMEDIATE RELEASE) PO PRN (04:19)
[2022-06-22 06:38] LABS: Hemoglobin 8.4 g/dl (12.0-16.0); Mean Corpuscular Hemoglobin 30.8 pg (25.0-34.0); Mean Corpuscular Hgb Conc 33.6 g/dL (32.0-36.0); Mean Corpuscular Volume 91.6 fL (80.0-100.0); Nucleated RBC # (auto) 0.13 K/uL (0-0); Nucleated RBC % (auto) 1.7 %; Platelet Count 146 K/uL (130-400); RDW Coefficient of Variation 15.4 % (11.5-14.5); RDW Standard Deviation 50.2 fL (36.4-46.3); Red Blood Count 2.73 M/uL (3.93-5.22); White Blood Count 7.66 K/ul (4.8-10.8)
[2022-06-22 06:55] LABS: BUN Creatinine Ratio 21.2 (10-20); Calcium 6.1 mg/dl (8.5-10.1); Est GFR (African American) 65.1 ml/min; Est GFR (Non-African American) 56.1 ml/min
[2022-06-22 07:08] LABS: Basophils # (auto) 0.02 K/uL (0-0.2); Basophils % (auto) 0.3 %; Immature Granulocytes # (auto) 0.49 K/uL (0.00-0.02); Immature Granulocytes % (auto) 6.4 %; Lymphocytes # (auto) 0.19 K/uL (1.2-3.4); Lymphocytes % (auto) 2.5 %; Monocytes # (auto) 0.54 K/uL (0.24-0.82); Neutrophils # (auto) 6.42 K/uL (1.4-6.5); Neutrophils % (auto) 83.8 %; Polychromasia 1+
--- NOTE | 2022-06-22 07:49 | Hospitalist Progress Note ---
Date of Service June 22, 2022 Assessment & Plan (1) Colovesical fistula: Plan: Pt is a 72 yo female with PMH of GERD, HTN, HLD, RA, and breast cx w/ mets to bone (in current palliative radiation) presenting due to almost one week of fecal matter in her urine. Urine culture 06/15 showed E. coli EBSL sensitive to zosyn. Colovesical fistula - CTAP shows acute diverticulitis w/ a colovesical fistula, moderate stool burden in colon w/o obstruction - continue zosyn- day 3 - urine culture 06/15 grew E. coli ESBL, repeat culture 06/19 grew 3 organisms, probable skin kana - diverting colostomy w/o complication - per surg (POD1): d/c betts, advance diet, PT consult, enemas Post surgical hypotension - hypotensive in PACU, given IVF and phenylephrine - still hypotensive on medical floor down to 66/40, given 1 L NS bolus - checked stat CBC and BMP: Hgb of 7.4- given 1 unit of PRBCs, repeat Hgb 8.7 - Hgb this AM 8.4 - blood pressures mostly in 90s/50s this morning - continue to monitor Diverticulitis - CTAP as above - continue w/ ABX treatment Anemia - Hgb during last admission was around 12 - 12.5, but was decreasing - Hgb upon admission 9.1. No signs of bleeding. Normocytic. - iron studies show normal iron at 98 w/ high ferritin at 458- aligns w/ anemia of chronic disease - Hgb today 8.7 - continue to monitor Lower leg edema - hold home bumex 2 mg d/t BP - last echo 10/2021 showed EF of 55-60% w/ normal LV systolic function and mild LVH Hypertension - during prior admission, HCTZ was stopped - currently holding olmesartan d/t hypotension Neoplasm related pain - doing fairly well after prior admission - continue fentanyl patch, OxyContin 30 mg BID, and oxycodone 10 mg q4hr PRN for breakthrough pain - pt last palliative radiation 06/17/2022 - Continue home bowel regimen - pt receiving additional pain control d/t surgical pain- 1 mg morphine q2hr PRN - changed tylenol from PRN to scheduled 650 mg QID and added toradol 15 mg q6hr PRN Malignant 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 - follows with [facility] - pt curious about Xgeva injections while hospitalized; she states she is due for it now but her Ca levels were too low - she is currently being supplemented with 2500 mg Ca BID Moderate obstructive sleep apnea - CPAP 13 cmH20 Anxiety and depression - Continue home duloxetine and lorazepam PRN (2) Diverticulitis: (3) Neoplasm related pain: (4) Malignant 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: (5) Lower extremity edema: (6) Anemia: (7) Hypotension after procedure: Plan FEN: low fiber, NS w/ K at 80 mL/hr Code: DNR DVT ppx: lovenox 55 mg qAM (weight based) Dispo: med/surg Admission and Anticipated Discharge Date Admission Date: June 19, 2022 Supervising Physician Co-Signing Physician Notes I personally examined the patient and verified all araujo points of history and exam, discussed case, and agree with decision making with Dr Johnson Ongoing abdominal pain. A bit of a rough day. Vitals noted, in general awake and alert fatigued no distress. HEENT normocephalic atraumatic mucous membranes moist. Breathing unlabored no accessory muscle use good effort. Skin shows no rashes no pallor or icterus. Abdomen shows bloody drainage in the ostomy bag but not a large amount. Complicated UTI with colovesicular fistulanow status post diverting colostomy. Continue Zosyn. Hypotensionhypovolemia perioperativeimproved with fluids and 1 unit packed red cells. Pain control has been difficult due to limitations from hypotensionbut now the blood pressure is stabilizing can more safely introduce low dosing of NSAIDs with Toradol, and can be able to be a bit safer with more liberal use of morphine. Continue Tylenolbut schedule [id number] DVT proph - lovenox (start tomorrow ensuring Hgb stable first) Subjective Pt is a 72 yo female with PMH of GERD, HTN, HLD, RA, and breast cx w/ mets to bone (in current palliative radiation) presenting due to almost one week of fecal matter in her urine. Spoke with pt this morning at bedside. She is still in a lot of pain, mostly in her abdomen. She denies chest pain, SOB, lightheadedness, and dizziness. Physical Exam Constitutional: Mild distress d/t pain. BPs in 90s/50s. Eyes: no conjunctival abnormality Respiratory: CTA bilaterally. No rhonchi, wheezing, or crackles. Non labored breathing. Cardiovascular: RRR. No murmur noted. Gastrointestinal (Abdomen): Tender in RUQ/RLQ. Soft, +BS. No masses noted. Surgical incisions appear uninfected. Skin: no rashes, warm and dry Psychiatric: Alert. Mood and affect congruent. Results & Data Results & Data ([facility]) Vital Signs (Past 12 Hours) Vital Signs Temp Pulse Pulse Resp BP BP Pulse Ox 06/22/22 06:38 36.9 C 77 16 102/64 96 06/22/22 04:48 36.4 C L 16 92/65 L 92 06/22/22 02:51 36.8 C 81 16 96/64 L 90 06/22/22 01:40 93/57 L 06/21/22 23:48 36.8 C 84 16 95/61 L 92 06/21/22 22:49 36.8 C 88 16 97/70 L 92 06/21/22 21:50 36.7 C 84 18 90/61 L 91 06/21/22 21:20 36.6 C 82 16 86/58 L 95 06/21/22 20:45 36.7 C 88 16 94/61 L 93 06/21/22 20:33 36.7 C 88 18 84/57 L 90 06/21/22 20:12 36.6 C 89 18 86/58 L 92 O2 Del Method 06/22/22 06:38 CPAP 06/22/22 04:48 CPAP 06/22/22 02:51 CPAP 06/22/22 01:40 06/21/22 23:48 CPAP 06/21/22 22:49 CPAP 06/21/22 21:50 CPAP 06/21/22 21:20 CPAP 06/21/22 20:45 CPAP 06/21/22 20:33 06/21/22 20:12 Resident Activity Tracking Resident Involvement: Resident Care Provided Care Provided: Adult Hospital Medicine
--- NOTE | 2022-06-22 08:25 | Surgery Progress Note ---
Date of Service June 22, 2022 Assessment & Plan (1) Bladder fistula: Plan: Postoperative day #1 We can DC her Rivera catheter today We will advance her diet Get physical therapy involved We will give some tapwater enemas while she is here to help clean out her rectal vault which may improve her urinary tract infection Admission and Anticipated Discharge Date Admission Date: June 19, 2022 Subjective Patient seen. She states she had a pretty rough night overall. The trouble with her Rivera catheter as well as having some abdominal pain. She is doing better this morning. Physical Exam Physical Exam: Alert no acute distress Abdomen is soft with expected bruising and soreness. Colostomy appears viable. No output yet Results & Data ([facility]) Vital Signs (Past 12 Hours) Vital Signs Temp Pulse Pulse Resp BP BP Pulse Ox 06/22/22 06:38 36.9 C 77 16 102/64 96 06/22/22 04:48 36.4 C L 16 92/65 L 92 06/22/22 02:51 36.8 C 81 16 96/64 L 90 06/22/22 01:40 93/57 L 06/21/22 23:48 36.8 C 84 16 95/61 L 92 06/21/22 22:49 36.8 C 88 16 97/70 L 92 06/21/22 21:50 36.7 C 84 18 90/61 L 91 06/21/22 21:20 36.6 C 82 16 86/58 L 95 06/21/22 20:45 36.7 C 88 16 94/61 L 93 06/21/22 20:33 36.7 C 88 18 84/57 L 90 O2 Del Method 06/22/22 06:38 CPAP 06/22/22 04:48 CPAP 06/22/22 02:51 CPAP 06/22/22 01:40 06/21/22 23:48 CPAP 06/21/22 22:49 CPAP 06/21/22 21:50 CPAP 06/21/22 21:20 CPAP 06/21/22 20:45 CPAP 06/21/22 20:33 PG Care Time/CCT Total # of Minutes Spent Total Time Spent with Patient: Total time spent is greater than 50% in coordination of care (as documented) at patient's floor/unit and/or counseling patient: Coding Level of Care Code None Diagnoses Bladder fistula N32.2
[2022-06-22] MEDS: NSS + 20MEQ KCL 20 MEQ/1,000 ML BAG IV SCH ×3 (08:35→21:10)
[2022-06-22] MEDS: ONDANSETRON 4 MG OD TAB PO PRN ×2 (08:40→17:01)
[2022-06-22] MEDS: CHECK fentaNYL PATCH PLACEMENT SCH ×3 (08:41→23:38)
[2022-06-22] MEDS: oxyCODONE HCL 15 MG TABCR (OxyCONTIN) PO SCH ×2 (08:48→21:08)
[2022-06-22] MEDS: PANTOprazole 40 MG TAB PO SCH (08:53)
[2022-06-22] MEDS: POTASSIUM CHLORIDE CRTAB 20 MEQ TABCR PO SCH ×2 (08:53→17:22)
[2022-06-22] MEDS: NYSTATIN POWDER 15GM BTL EXT SCH ×2 (08:57→21:10)
[2022-06-22] MEDS: OLMESARTAN MEDOXOMIL 20 MG TAB PO SCH (08:57)
[2022-06-22] MEDS: LIDOCAINE 5% 1 PATCH TD SCH (08:59)
[2022-06-22] MEDS: HYDROXYCHLOROQUINE SULFATE 200 MG TAB PO SCH ×2 (09:00→21:09)
[2022-06-22] MEDS: GABAPENTIN 300 MG CAP PO SCH ×2 (09:01→21:09)
[2022-06-22] MEDS: CALCIUM CARBONATE 1250MG TAB PO SCH ×2 (09:02→21:08)
[2022-06-22] MEDS: BUMETANIDE 1 MG TAB PO SCH (09:02)
[2022-06-22] MEDS: DULoxetine HCL 60 MG CAP PO SCH (09:02)
[2022-06-22] MEDS: dexAMETHasone 4 MG TAB PO SCH (09:02)
[2022-06-22] MEDS: allopurinoL 100 MG TAB PO SCH (09:03)
[2022-06-22] MEDS: ATORVASTATIN 10 MG TAB PO SCH (09:03)
[2022-06-22] MEDS: MULTIVITAMIN TAB PO SCH (11:24)
[2022-06-22] MEDS: CHOLECALCIFEROL 5,000 UNITS 125 MCG TAB PO SCH (11:24)
[2022-06-22] MEDS ORDERED: KETOROLAC TROMETHAMINE 15 MG/ML VIAL IV ONE (16:00)
[2022-06-22] MEDS ORDERED: KETOROLAC TROMETHAMINE 15 MG/ML VIAL IV PRN (16:00)
[2022-06-22] MEDS: ACETAMINOPHEN 325 MG TAB PO SCH ×2 (17:09→21:07)
--- NOTE | 2022-06-22 19:19 | Billing Data ---
Date of Service June 22, 2022 Coding Level of Care Code 76620 Subseq Hosp Care Lvl 3
--- NOTE | 2022-06-22 19:19 | Billing Data ---
Date of Service June 22, 2022 Coding Level of Care Code 13802 Subseq Hosp Care Lvl 3
[2022-06-23] MEDS: PIPERACILLIN/TAZOBACTAM 4.5 GM in DEXTROSE 5% 100 ML IV SCH ×3 (02:04→17:43)
[2022-06-23] MEDS: oxyCODONE HCL IR 5 MG TAB (IMMEDIATE RELEASE) PO PRN ×2 (05:07→17:42)
--- NOTE | 2022-06-23 07:31 | Hospitalist Progress Note ---
Date of Service June 23, 2022 Assessment & Plan (1) Colovesical fistula: Plan: Pt is a 72 yo female with PMH of GERD, HTN, HLD, RA, and breast cx w/ mets to bone (in current palliative radiation) presenting due to almost one week of fecal matter in her urine. Urine culture 06/15 showed E. coli EBSL sensitive to zosyn. Colovesical fistula - CTAP shows acute diverticulitis w/ a colovesical fistula, moderate stool burden in colon w/o obstruction - continue zosyn- day 4 - urine culture 06/15 grew E. coli ESBL, repeat culture 06/19 grew 3 organisms, probable skin kana - diverting colostomy w/o complication - per surg (POD2): PT, awaiting return of function to stoma Post surgical hypotension - hypotensive in PACU, given IVF and phenylephrine - still hypotensive on medical floor down to 66/40, given 1 L NS bolus - checked stat CBC and BMP: Hgb of 7.4; given 1 unit of PRBCs, repeat Hgb 8.7 - Hgb this AM 6.2; transfused 2 units, repeat Hgb pending - blood pressures stable and slightly improving, latest 117/70 - pt does not appear to be actively bleeding as she is clinically stable; most likely equalizing from losses d/t surgery - continue to monitor Diverticulitis - CTAP as above - continue w/ ABX treatment Anemia - Hgb during last admission was around 12 - 12.5, but was decreasing - Hgb upon admission 9.1. No signs of bleeding. Normocytic. - iron studies show normal iron at 98 w/ high ferritin at 458- aligns w/ anemia of chronic disease - Hgb today 6.2; pt clinically stable - management as above KAT - Cr since admission stable around 0.9 range - today, Cr 1.36 - suspect KAT d/t hypotension, lack of perfusion - d/c toradol as not to add additional insult Lower leg edema - hold home bumex 2 mg d/t BP - last echo 10/2021 showed EF of 55-60% w/ normal LV systolic function and mild LVH Hypertension - during prior admission, HCTZ was stopped - currently holding olmesartan d/t hypotension Neoplasm related pain - doing fairly well after prior admission - continue fentanyl patch, OxyContin 30 mg BID, and oxycodone 10 mg q4hr PRN for breakthrough pain - pt last palliative radiation 06/17/2022 - Continue home bowel regimen - pt receiving additional pain control d/t surgical pain- 1 mg morphine q2hr PRN - changed tylenol from PRN to scheduled 650 mg QID and given dose of toradol 15 mg - pain well managed today Malignant 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 - follows with [facility] oncology - pt curious about Xgeva injections while hospitalized; she states she is due for it now but her Ca levels were too low - she is currently being supplemented with 2500 mg Ca BID Moderate obstructive sleep apnea - CPAP 13 cmH20 Anxiety and depression - Continue home duloxetine and lorazepam PRN (2) Diverticulitis: (3) Neoplasm related pain: (4) Malignant 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: (5) Lower extremity edema: (6) Anemia: (7) Hypotension after procedure: Plan FEN: low fiber, NS w/ K at 80 mL/hr, 2 units of PRBCs Code: DNR DVT ppx: lovenox 40 mg qAM Dispo: med/surg Admission and Anticipated Discharge Date Admission Date: June 19, 2022 Supervising Physician Co-Signing Physician Notes I personally examined the patient and verified all araujo points of history and exam, discussed case, and agree with decision making with Dr Alex goins doing better. Feels better overall. Updated family and answered all questions the best my ability. Vitals noted, in general awake and alert fatigued no distress. HEENT normocephalic atraumatic mucous membranes moist. Breathing unlabored no accessory muscle use good effort. Skin shows no rashes no pallor or icterus. Abdomen soft, incisions clean dry and intact. No guarding rebound or rigidity no tendernessmuch improved from prior. Bilateral lumbar/lower thoracic paraspinals high tone, decreased range of motionresident physician and myself performed bracing, improvement in tissue texture, patient tolerated well. Complicated UTI with colovesicular fistulanow status post diverting colostomy. Continue Zosyn. Hypotensionhypovolemia perioperativeimproved with fluids and 1 unit packed red cells. Acute blood loss anemiaadditional transfusions todaynot unexpected given the surgical procedure and its complexity. KAT likely from acute blood loss anemia, Toradol put on hold for safety, anticipate the KAT to improve with blood and further fluid. Pain control much better. Rib bracing to hopefully hasten resolution of bowel function. Otherwise as above DVT proph - lovenox Subjective Pt is a 72 yo female with PMH of GERD, HTN, HLD, RA, and breast cx w/ mets to bone (in current palliative radiation) presenting due to almost one week of fecal matter in her urine. Pt is feeling much better today. She was able to use the bathroom last night. She feels now that most of her pain is in her back and less in her abdomen. She denies lightheadedness, dizziness, nausea, and vomiting. Physical Exam Constitutional: NAD. Vitals WNL. Eyes: no conjunctival abnormality Respiratory: CTA bilaterally. No rhonchi, wheezing, or crackles. Non labored breathing. Cardiovascular: RRR. No murmur noted. 1+ pitting edema in bilateral LE. SCDs on and functional Gastrointestinal (Abdomen): Nontender upon palpation, +BS. No masses noted. Surgical incisions healing well. Large ecchymosis noted around stoma site. Skin: no rashes, warm and dry Psychiatric: Alert. Mood and affect congruent. Results & Data Results & Data ([facility]) Vital Signs (Past 12 Hours) Vital Signs Temp Pulse Resp BP Pulse Ox O2 Del Method 06/22/22 21:10 Room Air 06/22/22 23:33 36.5 C 78 16 104/68 95 CPAP 06/22/22 22:28 36.7 C 78 18 107/66 93 Room Air 06/22/22 19:41 36.6 C 83 17 103/67 94 Room Air Resident Activity Tracking Resident Involvement: Resident Care Provided Care Provided: Adult Hospital Medicine
[2022-06-23] MEDS: CHECK fentaNYL PATCH PLACEMENT SCH ×2 (08:08→16:12)
[2022-06-23] MEDS: BUMETANIDE 1 MG TAB PO SCH (08:11)
[2022-06-23] MEDS: OLMESARTAN MEDOXOMIL 20 MG TAB PO SCH (08:13)
[2022-06-23] MEDS: POTASSIUM CHLORIDE CRTAB 20 MEQ TABCR PO SCH ×2 (08:14→16:16)
[2022-06-23] MEDS: PANTOprazole 40 MG TAB PO SCH (08:14)
[2022-06-23] MEDS: dexAMETHasone 4 MG TAB PO SCH (08:15)
[2022-06-23] MEDS: GABAPENTIN 300 MG CAP PO SCH ×2 (08:15→22:09)
[2022-06-23] MEDS: DULoxetine HCL 60 MG CAP PO SCH (08:15)
[2022-06-23] MEDS: CALCIUM CARBONATE 1250MG TAB PO SCH ×2 (08:15→22:09)
[2022-06-23] MEDS: HYDROXYCHLOROQUINE SULFATE 200 MG TAB PO SCH ×2 (08:15→22:09)
[2022-06-23] MEDS: ATORVASTATIN 10 MG TAB PO SCH (08:16)
[2022-06-23] MEDS: allopurinoL 100 MG TAB PO SCH (08:16)
[2022-06-23] MEDS: ACETAMINOPHEN 325 MG TAB PO SCH ×4 (08:16→22:07)
[2022-06-23] MEDS: ENOXAPARIN INJ 40 MG/0.4 ML SYR SQ SCH (08:17)
[2022-06-23] MEDS: NYSTATIN POWDER 15GM BTL EXT SCH ×2 (08:19→22:13)
[2022-06-23] MEDS: LIDOCAINE 5% 1 PATCH TD SCH (08:19)
[2022-06-23] MEDS: fentaNYL 50 MCG/HR TDSY TD SCH (08:22)
[2022-06-23] MEDS: oxyCODONE HCL 15 MG TABCR (OxyCONTIN) PO SCH ×2 (08:39→22:07)
[2022-06-23 09:06] LABS: Hematocrit (blood only) 18.6 % (34.1-44.9); Hemoglobin 6.2 g/dl (12.0-16.0); Mean Corpuscular Hemoglobin 30.8 pg (25.0-34.0); Mean Corpuscular Hgb Conc 33.3 g/dL (32.0-36.0); Mean Corpuscular Volume 92.5 fL (80.0-100.0); Mean Platelet Volume 8.8 fL (9.4-12.3); Nucleated RBC # (auto) 0.23 K/uL (0-0); Nucleated RBC % (auto) 2.6 %; Platelet Count 128 K/uL (130-400); RDW Coefficient of Variation 15.7 % (11.5-14.5); RDW Standard Deviation 50.8 fL (36.4-46.3); Red Blood Count 2.01 M/uL (3.93-5.22)
[2022-06-23] MEDS ORDERED: SODIUM CHLORIDE 0.9% 250 ML IV PRN (09:26)
[2022-06-23 09:29] LABS: BUN Creatinine Ratio 20.6 (10-20); Calcium 6.8 mg/dl (8.5-10.1); Creatinine Clr Calc Pharmacy 42.2 ml/min; Est GFR (African American) 44.3 ml/min; Est GFR (Non-African American) 38.2 ml/min; Potassium 4.7 mmol/L (3.5-5.1)
[2022-06-23] MEDS: NSS + 20MEQ KCL 20 MEQ/1,000 ML BAG IV SCH (09:35)
[2022-06-23] MEDS: ONDANSETRON 4 MG OD TAB PO PRN (09:47)
[2022-06-23 09:53] LABS: Basophils # (auto) 0.01 K/uL (0-0.2); Basophils % (auto) 0.1 %; Eosinophils # (auto) 0.06 K/uL (0-0.50); Eosinophils % (auto) 0.7 %; Immature Granulocytes # (auto) 0.76 K/uL (0.00-0.02); Immature Granulocytes % (auto) 8.6 %; Lymphocytes % (auto) 2.3 %; Monocytes # (auto) 0.56 K/uL (0.24-0.82); Monocytes % (auto) 6.4 %; Neutrophils # (auto) 7.21 K/uL (1.4-6.5); Neutrophils % (auto) 81.9 %; Polychromasia 1+; Toxic Granulation 1+
--- NOTE | 2022-06-23 10:49 | Surgery Progress Note ---
Date of Service June 23, 2022 Assessment & Plan (1) H/O abdominal surgery: Plan: Postoperative day #2. Hemoglobin now 6.2. I do not believe she is actively bleeding but from the look of ecchymosis she did lose a fair amount of blood likely yesterday. I agree with transfusing 2 units and monitoring. Will need physical therapy evaluation. Awaiting full return of function to the stoma [facility] covering for the holiday if any questions or concerns Admission and Anticipated Discharge Date Admission Date: June 19, 2022 Subjective Patient seen. Feeling better today than yesterday. She did have an accident last night where the bag came off causing a mass. Her pain is better today. She did tolerate liquids. Physical Exam Physical Exam: Alert. No acute distress Abdomen is soft. Stoma slightly retracted but viable. Large amount of ecchymosis on the left side of her abdomen. This is new from yesterday. All the incisions are intact Results & Data ([facility]) Vital Signs (Past 12 Hours) Vital Signs Temp Pulse Pulse Resp BP BP Pulse Ox 06/23/22 10:32 36.6 C 83 18 98/63 L 99 06/23/22 10:00 108/69 06/23/22 10:16 36.6 C 73 18 86/56 L 90 06/23/22 08:45 99/62 L 06/23/22 07:47 36.5 C 67 16 95/60 L 94 06/22/22 23:33 36.5 C 78 16 104/68 95 O2 Del Method 06/23/22 10:32 06/23/22 10:00 06/23/22 10:16 06/23/22 08:45 06/23/22 07:47 Nasal CPAP 06/22/22 23:33 CPAP PG Care Time/CCT Total # of Minutes Spent Total Time Spent with Patient: Total time spent is greater than 50% in coordination of care (as documented) at patient's floor/unit and/or counseling patient: Coding Level of Care Code None Diagnoses H/O abdominal surgery Z98.890
[2022-06-23] MEDS: CHOLECALCIFEROL 5,000 UNITS 125 MCG TAB PO SCH (13:05)
[2022-06-23] MEDS: MULTIVITAMIN TAB PO SCH (13:05)
[2022-06-23 18:41] LABS: Hematocrit (blood only) 26.2 % (34.1-44.9); Hemoglobin 8.9 g/dl (12.0-16.0)
--- NOTE | 2022-06-23 19:24 | Billing Data ---
Date of Service June 23, 2022 Coding Level of Care Code 37381 Subseq Hosp Care Lvl 3
[2022-06-24] MEDS: PIPERACILLIN/TAZOBACTAM 4.5 GM in DEXTROSE 5% 100 ML IV SCH ×3 (02:13→17:27)
[2022-06-24] MEDS: CHECK fentaNYL PATCH PLACEMENT SCH ×3 (02:16→17:26)
[2022-06-24] MEDS: NSS + 20MEQ KCL 20 MEQ/1,000 ML BAG IV SCH ×2 (06:01→18:28)
[2022-06-24] MEDS: oxyCODONE HCL IR 5 MG TAB (IMMEDIATE RELEASE) PO PRN (06:07)
--- NOTE | 2022-06-24 07:48 | Hospitalist Progress Note ---
Date of Service June 24, 2022 Assessment & Plan (1) Colovesical fistula: Plan: Pt is a 72 yo female with PMH of GERD, HTN, HLD, RA, and breast cx w/ mets to bone (in current palliative radiation) presenting due to almost one week of fecal matter in her urine. Urine culture 06/15 showed E. coli EBSL sensitive to zosyn. Colovesical fistula - CTAP shows acute diverticulitis w/ a colovesical fistula, moderate stool burden in colon w/o obstruction - continue zosyn- day 5 - urine culture 06/15 grew E. coli ESBL, repeat culture 06/19 grew 3 organisms, probable skin kana - diverting colostomy w/o complication - per surg (POD3): PT, awaiting return of function to stoma - holding unnecessary medications (like vitamins, etc) until bowel function returns Post surgical hypotension - hypotensive in PACU, given IVF and phenylephrine - still hypotensive on medical floor down to 66/40, given 1 L NS bolus - checked stat CBC and BMP: Hgb of 7.4; given 1 unit of PRBCs, repeat Hgb 8.7 - Hgb then 6.2; transfused 2 units, repeat Hgb 8.9 - blood pressures stable and improving, most recent 122/79 - pt does not appear to be actively bleeding as she is clinically stable; most likely equalizing from losses d/t surgery - Hgb today 8.1 - continue to monitor Diverticulitis - CTAP as above - continue w/ ABX treatment -hold hydroxychloroquine until infection resolved Anemia-acute blood loss anemia - Hgb during last admission was around 12 - 12.5, but was decreasing - Hgb upon admission 9.1. No signs of bleeding. Normocytic. - iron studies show normal iron at 98 w/ high ferritin at 458- aligns w/ anemia of chronic disease - Hgb at lowest 6.2-->with surgery and large area of bruising in abdominal wall--> transfused - management as above KAT- resolved - Cr since admission stable around 0.9 range - 06/23 Cr 1.36 - suspect KAT d/t hypotension, lack of perfusion - d/c toradol as not to add additional insult -hold bumex, potassium, and giving IVFs - Cr today 0.89 Lower leg edema - hold home bumex 2 mg and 20 meq K BID - last echo 10/2021 showed EF of 55-60% w/ normal LV systolic function and mild LVH Hypertension - during prior admission, HCTZ was stopped Neoplasm related pain - doing fairly well after prior admission - continue fentanyl patch, OxyContin 30 mg BID, and oxycodone 10 mg q4hr PRN for breakthrough pain - pt last palliative radiation 06/17/2022 - Continue home bowel regimen - pt receiving additional pain control d/t surgical pain- 1 mg morphine q2hr PRN - changed tylenol from PRN to scheduled 650 mg QID and given dose of toradol 15 mg - pain well managed today Malignant 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 - [email or web address] - pt curious about Xgeva injections while hospitalized; she states she is due for it now but her Ca levels were too low - 2500 mg Ca BID supplementation held Moderate obstructive sleep apnea - CPAP 13 cmH20 Anxiety and depression - Continue home duloxetine and lorazepam PRN (2) Diverticulitis: (3) Neoplasm related pain: (4) Malignant 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: (5) Lower extremity edema: (6) Anemia: (7) Hypotension after procedure: Plan FEN: low fiber, NS w/ K at 80 mL/hr Code: DNR DVT ppx: lovenox 40 mg qAM Dispo: med/surg, pt will need insurance auth to return to [facility] Admission and Anticipated Discharge Date Admission Date: June 19, 2022 Supervising Physician Co-Signing Physician Notes I personally examined the patient and verified all araujo points of history and exam, discussed case, and agree with decision making with Dr. Johnson with the following additions/exceptions: S-Pt reports feeling well, pain well controlled in abdomen. Is eating and drinking low fiber diet but feels bloated. Not passing any stool yet in ostomy. O- Vitals reviewed Gen: [AAOx3, NAD] HEENT: [anicteric sclerae, EOMI] CV: [RRR no mgr nl S1S2] Pulm: [CTAB no wcr] Abd: [+BS soft NT ND, multiple incisions present with dermabond in place, healing Ext: [no edema, 2+ DP pulses] Skin: [large area of ecchymosis on left side of abdomen wrapping around to left flank] Neuro: [full strength throughout] Labs reviewed A/P-72 yo female here with colovesicular fistula, now s/p diverting colostomy. With acute on chronic blood loss anemia, KAT, post-op hypotension all now improving. I noticed that patient is STILL GETTING OxyContin 30mg po bid in addition to the Fentanyl patch prescribed when I discharged her 3 weeks ago. She was to STOP taking OxyContin at that time. She was also to stop HCTZ and decrease KCl to once daily dosing-NONE of these changes were reflected on her home med r econciliation upon admission for some reason. Overall improving. Anemia stable and likely secondary to blood loss from hematoma, surgical losses. KAT improved and BP improved. Hold Bumex while hydrating with IVFs. Discontinue KCl for now and follow BMP. Continue Zosyn for diverticulitis x 10 day course. DC OxyContin and continue Fentanyl patch, oxycodone IR prn breakthrough pain, IV morphine prn severe breakthrough pain. Subjective Pt is a 72 yo female with PMH of GERD, HTN, HLD, RA, and breast cx w/ mets to bone (in current palliative radiation) presenting due to almost one week of fecal matter in her urine. Pt feeling better this morning. She was sitting in her chair this AM. She now endorses "gas pains." She denies lightheadedness, dizziness, chest pain, and SOB. Review of Systems Review of Systems: All systems reviewed & are unremarkable except as noted in HPI & below Physical Exam Constitutional: NAD. Vitals WNL. Eyes: no conjunctival abnormality Respiratory: CTA bilaterally. No rhonchi, wheezing, or crackles. Non labored breathing. Cardiovascular: RRR. No murmur noted. 1+ pitting edema in bilateral LE. Gastrointestinal (Abdomen): Nontender, +BS. No masses noted. Surgical wounds healing well. Large ecchymosis present throughout lower abdomen and especially around new ostomy site. Skin: no rashes, warm and dry Psychiatric: Alert. Mood and affect congruent. Results & Data Results & Data ([facility]) Vital Signs (Past 12 Hours) Vital Signs Temp Pulse Resp BP Pulse Ox O2 Del Method 06/23/22 22:10 Room Air 06/23/22 22:39 36.4 C L 70 18 133/84 93 Room Air Resident Activity Tracking Resident Involvement: Resident Care Provided Care Provided: [facility]
[2022-06-24] MEDS: LORazepam 0.5 MG TAB PO PRN ×2 (08:46→21:01)
[2022-06-24 08:49] LABS: Hematocrit (blood only) 24.4 % (34.1-44.9); Hemoglobin 8.1 g/dl (12.0-16.0); Mean Corpuscular Hemoglobin 30.6 pg (25.0-34.0); Mean Corpuscular Hgb Conc 33.2 g/dL (32.0-36.0); Mean Corpuscular Volume 92.1 fL (80.0-100.0); Mean Platelet Volume 8.8 fL (9.4-12.3); Nucleated RBC # (auto) 0.14 K/uL (0-0); Nucleated RBC % (auto) 1.8 %; Platelet Count 133 K/uL (130-400); RDW Coefficient of Variation 15.6 % (11.5-14.5); RDW Standard Deviation 50.9 fL (36.4-46.3); Red Blood Count 2.65 M/uL (3.93-5.22); White Blood Count 7.96 K/ul (4.8-10.8)
[2022-06-24] MEDS: dexAMETHasone 4 MG TAB PO SCH (08:51)
[2022-06-24] MEDS: ACETAMINOPHEN 325 MG TAB PO SCH ×4 (08:51→20:45)
[2022-06-24] MEDS: HYDROXYCHLOROQUINE SULFATE 200 MG TAB PO SCH (08:51)
[2022-06-24] MEDS: CALCIUM CARBONATE 1250MG TAB PO SCH (08:51)
[2022-06-24] MEDS: GABAPENTIN 300 MG CAP PO SCH ×2 (08:51→20:45)
[2022-06-24] MEDS: ATORVASTATIN 10 MG TAB PO SCH (08:52)
[2022-06-24] MEDS: OLMESARTAN MEDOXOMIL 20 MG TAB PO SCH (08:52)
[2022-06-24] MEDS: allopurinoL 100 MG TAB PO SCH (08:52)
[2022-06-24] MEDS: DULoxetine HCL 60 MG CAP PO SCH (08:53)
[2022-06-24] MEDS: BUMETANIDE 1 MG TAB PO SCH (08:53)
[2022-06-24] MEDS: PANTOprazole 40 MG TAB PO SCH (08:53)
[2022-06-24] MEDS: POTASSIUM CHLORIDE CRTAB 20 MEQ TABCR PO SCH (08:54)
[2022-06-24] MEDS: LIDOCAINE 5% 1 PATCH TD SCH (08:54)
[2022-06-24] MEDS: ENOXAPARIN INJ 40 MG/0.4 ML SYR SQ SCH (08:54)
[2022-06-24] MEDS: NYSTATIN POWDER 15GM BTL EXT SCH ×2 (08:55→20:45)
[2022-06-24 08:59] LABS: BUN Creatinine Ratio 21.3 (10-20); Calcium 7.3 mg/dl (8.5-10.1); Creatinine Clr Calc Pharmacy 64.5 ml/min; Est GFR (Non-African American) 63.8 ml/min; Potassium 4.6 mmol/L (3.5-5.1)
[2022-06-24] MEDS: oxyCODONE HCL 15 MG TABCR (OxyCONTIN) PO SCH ×2 (10:27→20:45)
--- NOTE | 2022-06-24 12:13 | Surgery Progress Note ---
Date of Service June 24, 2022 Assessment & Plan (1) H/O abdominal surgery: Plan: Postoperative day #3. Received 2 units PRBCs yesterday, hemoglobin today 8.1. We will continue to monitor Will need physical therapy evaluation. Awaiting full return of function to the stoma Admission and Anticipated Discharge Date Admission Date: June 19, 2022 Subjective Having some pain this morning. Ostomy has some air in it. No further ecchymosis. Hemoglobin 8.9-8.1, stable Physical Exam Physical Exam: Alert. No acute distress Abdomen is soft. Stoma slightly retracted but viable. Large amount of ecchymosis on the left side of her abdomen. Ostomy bag with air. All the incisions are intact Results & Data ([facility]) Vital Signs (Past 12 Hours) Vital Signs Temp Pulse Resp BP Pulse Ox O2 Del Method 06/24/22 07:49 36.4 C L 64 18 122/79 99 Nasal CPAP
[2022-06-24] MEDS: MULTIVITAMIN TAB PO SCH (12:48)
[2022-06-24] MEDS: CHOLECALCIFEROL 5,000 UNITS 125 MCG TAB PO SCH (12:49)
--- NOTE | 2022-06-24 23:45 | Billing Data ---
Date of Service June 24, 2022 Coding Level of Care Code 52900 Subseq Hosp Care Lvl 3
[2022-06-25] MEDS: CHECK fentaNYL PATCH PLACEMENT SCH ×3 (01:03→18:16)
[2022-06-25] MEDS: PIPERACILLIN/TAZOBACTAM 4.5 GM in DEXTROSE 5% 100 ML IV SCH ×3 (01:45→18:12)
[2022-06-25] MEDS: oxyCODONE HCL IR 5 MG TAB (IMMEDIATE RELEASE) PO PRN ×4 (03:18→20:19)
[2022-06-25] MEDS: NSS + 20MEQ KCL 20 MEQ/1,000 ML BAG IV SCH (06:22)
[2022-06-25 07:07] LABS: BUN Creatinine Ratio 22.5 (10-20); Creatinine Clr Calc Pharmacy 71.7 ml/min; Est GFR (African American) 84.2 ml/min; Est GFR (Non-African American) 72.6 ml/min; Potassium 4.4 mmol/L (3.5-5.1)
--- NOTE | 2022-06-25 07:31 | Surgery Progress Note ---
Date of Service June 25, 2022 Assessment & Plan (1) H/O abdominal surgery: Plan: Postoperative day #4. hemoglobin 8.1 yesterday; awaiting labs today. We will continue to monitor Will need physical therapy evaluation. Awaiting full return of function to the stoma Admission and Anticipated Discharge Date Admission Date: June 19, 2022 Subjective Feeling better today. Minimal pain. No nausea or vomiting. Small amount of liquid in ostomy bag. Tolerating diet. Physical Exam Physical Exam: Alert. No acute distress Abdomen is soft. Stoma slightly retracted but viable. Large amount of ecchymosis on the left side of her abdomen. Ostomy bag with air. All the incisions are intact Results & Data ([facility]) Vital Signs (Past 12 Hours) Vital Signs Temp Pulse Resp BP Pulse Ox O2 Del Method 06/24/22 20:10 Room Air 06/24/22 22:28 36.9 C 78 17 124/74 94 CPAP Laboratory Results 06/25/22 06/25/22 06/24/22 Range/Units 06:24 06:24 07:37 WBC Pending (4.8-10.8) K/ul RBC Pending (3.93-5.22) M/uL Hgb Pending (12.0-16.0) g/dl Hct Pending (34.1-44.9) % MCV Pending (80.0-100.0) fL MCH Pending (25.0-34.0) pg MCHC Pending (32.0-36.0) g/dL RDW Std Deviation (36.4-46.3) fL RDW Coeff of [place] (11.5-14.5) % Plt Count Pending (130-400) K/uL MPV (9.4-12.3) fL Absolute Nucleated RBC (0-0) K/uL Nucleated RBC % (auto) % Sodium 138 136 (136-145) mmol/L Potassium 4.4 4.6 (3.5-5.1) mmol/L Chloride 107 106 (98-107) mmol/L Carbon Dioxide 27 27 (21-32) mmol/L Anion Gap 4 3 (3-11) BUN 18 19 (6-23) mg/dl Creatinine 0.80 0.89 D (0.6-1.2) mg/dl Est Cr Clr Drug Dosing 71.7 64.5 ml/min Est GFR ( Amer) 84.2 74.0 ml/min Est GFR (Non-Af Amer) 72.6 63.8 ml/min BUN/Creatinine Ratio 22.5 H 21.3 H (10-20) Glucose 107 H 91 (70-99(Fasting)) mg/dl Calcium 7.0 L 7.3 L (8.5-10.1) mg/dl 06/24/22 Range/Units 07:37 WBC 7.96 (4.8-10.8) K/ul RBC 2.65 L (3.93-5.22) M/uL Hgb 8.1 L (12.0-16.0) g/dl Hct 24.4 L (34.1-44.9) % MCV 92.1 (80.0-100.0) fL MCH 30.6 (25.0-34.0) pg MCHC 33.2 (32.0-36.0) g/dL RDW Std Deviation 50.9 H (36.4-46.3) fL RDW Coeff of [place] 15.6 H (11.5-14.5) % Plt Count 133 (130-400) K/uL MPV 8.8 L (9.4-12.3) fL Absolute Nucleated RBC 0.14 H (0-0) K/uL Nucleated RBC % (auto) 1.8 % Sodium (136-145) mmol/L Potassium (3.5-5.1) mmol/L Chloride (98-107) mmol/L Carbon Dioxide (21-32) mmol/L Anion Gap (3-11) BUN (6-23) mg/dl Creatinine (0.6-1.2) mg/dl Est Cr Clr Drug Dosing ml/min Est GFR ( Amer) ml/min Est GFR (Non-Af Amer) ml/min BUN/Creatinine Ratio (10-20) Glucose (70-99(Fasting)) mg/dl Calcium (8.5-10.1) mg/dl
--- NOTE | 2022-06-25 08:02 | Hospitalist Progress Note ---
Date of Service June 25, 2022 Assessment & Plan (1) Colovesical fistula: Plan: Pt is a 72 yo female with PMH of GERD, HTN, HLD, RA, and breast cx w/ mets to bone (in current palliative radiation) presenting due to almost one week of fecal matter in her urine. Urine culture 06/15 showed E. coli EBSL sensitive to zosyn. Colovesical fistula - CTAP shows acute diverticulitis w/ a colovesical fistula, moderate stool burden in colon w/o obstruction - continue zosyn- day 6; plan for 14 day course at this point- discuss duration with surgery - urine culture 06/15 grew E. coli ESBL, repeat culture 06/19 grew 3 organisms, probable skin kana - 06/21 diverting colostomy w/o complication - per surg (POD4): PT, awaiting return of function to stoma - pt w/ beginnings of ostomy output today Diverticulitis - CTAP as above - continue w/ ABX treatment Anemia-acute blood loss anemia - Hgb during last admission was around 12 - 12.5, but was decreasing - Hgb upon admission 9.1. Normocytic. - iron studies show normal iron at 98 w/ high ferritin at 458- aligns w/ anemia of chronic disease - 06/23: Hgb 6.2; pt clinically stable- transfused 3 units - today's Hgb 7.9 - management as above Lower leg edema - last echo 10/2021 showed EF of 55-60% w/ normal LV systolic function and mild LVH - stopped fluids today; consider adding back home 2mg bumex and 20 meq BID po tassium tomorrow Post surgical hypotension- resolved - hypotensive in PACU, given IVF and phenylephrine - still hypotensive on medical floor down to 66/40, given 1 L NS bolus - checked stat CBC and BMP: Hgb of 7.4; given 1 unit of PRBCs, repeat Hgb 8.7 - Hgb then down to 6.2; transfused 2 units, repeat Hgb 8.9 - blood pressures stable and improving, most recent 122/79 - pt does not appear to be actively bleeding as she is clinically stable; most likely equalizing from losses d/t surgery - Hgb today 7.9 - continue to monitor KAT- resolved - Cr since admission stable around 0.9 range - 11/23 Cr 1.36 - suspect KAT d/t hypotension, lack of perfusion - d/c toradol as not to add additional insult -held Bumex and olmesartan - Cr today 0.80 Hypertension - during prior admission, HCTZ was stopped, but then restarted at SNF for ankle swelling -holding home olmesartan Neoplasm related pain - doing fairly well after prior admission - continue fentanyl patch and oxycodone 10 mg q4hr PRN for breakthrough pain - pt also receiving 1 mg morphine q2hr PRN - pt last palliative radiation 06/17/2022 - Continue home bowel regimen - pain well managed today Malignant 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 - follows with [facility] - pt curious about Xgeva injections while hospitalized; she states she is due for it now but her Ca levels were too low - 2500 mg Ca BID supplementation held Moderate obstructive sleep apnea - CPAP 13 cmH20 Anxiety and depression - Continue home duloxetine and lorazepam PRN (2) Diverticulitis: (3) Neoplasm related pain: (4) Malignant 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: (5) Lower extremity edema: (6) Anemia: (7) Hypotension after procedure: Plan FEN: low fiber Code: DNR DVT ppx: lovenox 40 mg qAM Dispo: med/surg, pt will need insurance auth to return to [facility] Admission and Anticipated Discharge Date Admission Date: June 19, 2022 Supervising Physician Co-Signing Physician Notes I personally examined the patient and verified all araujo points of history and exam, discussed case, and agree with decision making with Dr. Johnson with the following additions/exceptions: S-Pt reports feeling well, pain well controlled in abdomen. Is eating and drinking low fiber diet but feels bloated. Not passing any stool yet in ostomy. O- Vitals reviewed Gen: [AAOx3, NAD,obese] HEENT: [anicteric sclerae, EOMI] CV: [RRR no mgr nl S1S2] Pulm: [CTAB no wcr] Abd: [+BS soft NT ND, multiple incisions present with dermabond in place, healing, colostomy in place with yellow brown liquid stool Ext: [1+ pitting edema Legs bilat] Skin: [large area of ecchymosis on left side of abdomen wrapping around to left flank] Neuro: [full strength throughout] Labs reviewed A/P-72 yo female here with colovesicular fistula, now s/p diverting colostomy. With acute on chronic blood loss anemia, KAT, post-op hypotension all now improving. I noticed that patient was still on OxyContin 30mg po bid in addition to the Fentanyl patch prescribed when I discharged her 3 weeks ago. She was to STOP taking OxyContin at that time. She was also to stop HCTZ and decrease KCl to once daily dosing-NONE of these changes were reflected on her home med reconciliation upon admission for some reason. Daughter reports the OxyContin was added back for pain control-suggest continuing Fentanyl patch only and titrating up Fentanyl as needed for chronic pain, continue oxycodone IR for breakthrough pain HCTZ and KCl discotinued. Use Bumex and restart today for leg edema, can always increase dose of bumex as needed for edema rather than adding on second diuretic. Overall improving. Anemia stable to slightly downtrending. Continue to follow CBC and likely secondary to blood loss from hematoma, surgical losses. KAT improved and BP improved. Continue Zosyn for diverticulitis but may need prolonged course--> 2-4 weeks, will need to d/w Surgery. Improving, if hgb stable and pain controlled, could return to SNF on Tuesday Subjective Pt is a 72 yo female with PMH of GERD, HTN, HLD, RA, and breast cx w/ mets to bone (in current palliative radiation) presenting due to almost one week of fecal matter in her urine. Urine culture 06/15 showed E. coli EBSL sensitive to zosyn. Pt feeling well this AM. Still with mild pain in the abdomen but much improved from prior. Pt still endorsing "gas pains." Pt denying new chest pain, SOB, or leg pains. Review of Systems Review of Systems: As per HPI. Otherwise negative. Physical Exam Constitutional: NAD. Vitals WNL. Eyes: no conjunctival abnormality Respiratory: CTA bilaterally. No rhonchi, wheezing, or crackles. Non labored breathing. Cardiovascular: RRR. No murmur noted. 1+ bilateral pitting edema. Gastrointestinal (Abdomen): Soft, nontender, +BS. No masses noted. Surgical incisions healing well. Ecchymosis resolving throughout abdomen. Skin: no rashes, warm and dry Psychiatric: Alert. Mood and affect congruent. Results & Data Results & Data ([facility]) Vital Signs (Past 12 Hours) Vital Signs Temp Pulse Resp BP Pulse Ox O2 Del Method 06/25/22 07:43 36.4 C L 71 16 137/79 CPAP 06/24/22 20:10 Room Air 06/24/22 22:28 36.9 C 78 17 124/74 94 CPAP Resident Activity Tracking Resident Involvement: Resident Care Provided Care Provided: Adult Hospital Medicine
[2022-06-25 08:14] LABS: Hemoglobin 7.9 g/dl (12.0-16.0); Mean Corpuscular Hemoglobin 30.9 pg (25.0-34.0); Mean Corpuscular Hgb Conc 32.9 g/dL (32.0-36.0); Mean Corpuscular Volume 93.8 fL (80.0-100.0); Mean Platelet Volume 8.8 fL (9.4-12.3); Nucleated RBC # (auto) 0.13 K/uL (0-0); Nucleated RBC % (auto) 2.2 %; Platelet Count 139 K/uL (130-400); RDW Coefficient of Variation 15.5 % (11.5-14.5); RDW Standard Deviation 51.4 fL (36.4-46.3); Red Blood Count 2.56 M/uL (3.93-5.22)
[2022-06-25] MEDS: ACETAMINOPHEN 325 MG TAB PO SCH ×4 (08:37→20:12)
[2022-06-25] MEDS: ATORVASTATIN 10 MG TAB PO SCH (08:37)
[2022-06-25] MEDS: PANTOprazole 40 MG TAB PO SCH (08:37)
[2022-06-25] MEDS: GABAPENTIN 300 MG CAP PO SCH ×2 (08:37→20:12)
[2022-06-25] MEDS: DULoxetine HCL 60 MG CAP PO SCH (08:37)
[2022-06-25] MEDS: allopurinoL 100 MG TAB PO SCH (08:37)
[2022-06-25] MEDS: ENOXAPARIN INJ 40 MG/0.4 ML SYR SQ SCH (08:37)
[2022-06-25] MEDS: dexAMETHasone 4 MG TAB PO SCH (08:37)
[2022-06-25] MEDS: OLMESARTAN MEDOXOMIL 20 MG TAB PO SCH (08:37)
[2022-06-25] MEDS: ONDANSETRON 4 MG OD TAB PO PRN (10:27)
[2022-06-25] MEDS: MoRPHine SULFATE 2 MG/ML CARP IV PRN ×2 (10:33→18:08)
[2022-06-25] MEDS: LIDOCAINE 5% 1 PATCH TD SCH (10:38)
[2022-06-25] MEDS: MULTIVITAMIN TAB PO SCH (12:41)
[2022-06-25] MEDS: HEPARIN 100 UNIT/ML 5ML FLUSH FLUSH PRN ×2 (15:52→21:43)
--- NOTE | 2022-06-25 15:55 | Billing Data ---
Date of Service June 25, 2022 Coding Level of Care Code 52443 Subseq Hosp Care Lvl 2
[2022-06-25] MEDS: NYSTATIN POWDER 15GM BTL EXT SCH ×2 (18:52→20:12)
[2022-06-25] MEDS: LORazepam 0.5 MG TAB PO PRN (21:42)
[2022-06-26] MEDS: CHECK fentaNYL PATCH PLACEMENT SCH ×4 (01:02→23:34)
[2022-06-26] MEDS: PIPERACILLIN/TAZOBACTAM 4.5 GM in DEXTROSE 5% 100 ML IV SCH ×3 (01:38→18:16)
[2022-06-26] MEDS: oxyCODONE HCL IR 5 MG TAB (IMMEDIATE RELEASE) PO PRN ×4 (05:56→21:25)
--- NOTE | 2022-06-26 06:40 | Hospitalist Progress Note ---
Date of Service June 26, 2022 Assessment & Plan (1) Colovesical fistula: Plan: Pt is a 72 yo female with PMH of GERD, HTN, HLD, RA, and breast cx w/ mets to bone (in current palliative radiation) presenting due to almost one week of fecal matter in her urine. Urine culture 06/15 showed E. coli EBSL sensitive to zosyn. Colovesical fistula - CTAP shows acute diverticulitis w/ a colovesical fistula, moderate stool burden in colon w/o obstruction - continue zosyn- day 7; plan for 14 day course at this point- discuss duration with surgery - urine culture 06/15 grew E. coli ESBL, repeat culture 06/19 grew 3 organisms, probable skin kana - 06/21 diverting colostomy w/o complication - Post op day #5: Per nursing small amount of blood, but more ostomy output. Diverticulitis - CTAP as above - continue w/ ABX treatment Anemia-acute blood loss anemia - Hgb during last admission was around 12 - 12.5, but was decreasing - Hgb upon admission 9.1. Normocytic. - iron studies show normal iron at 98 w/ high ferritin at 458- aligns w/ anemia of chronic disease - 06/23: Hgb 6.2; pt clinically stable- transfused 3 units - today's Hgb 8.0 (7.9 yesterday) - management as above Lower leg edema - last echo 10/2021 showed EF of 55-60% w/ normal LV systolic function and mild LVH - stopped fluids yesterday, restarted home 2mg bumex Post surgical hypotension- resolved - hypotensive in PACU, given IVF and phenylephrine - still hypotensive on medical floor down to 66/40, given 1 L NS bolus - checked stat CBC and BMP: Hgb of 7.4; given 1 unit of PRBCs, repeat Hgb 8.7 - Hgb then down to 6.2; transfused 2 units, repeat Hgb 8.9 - blood pressures stable and improving, most recent - pt does not appear to be actively bleeding as she is clinically stable; most likely equalizing from losses d/t surgery - Hgb today 8.0 - continue to monitor KAT- resolved - Cr since admission stable around 0.9 range - 06/23 Cr 1.36 - suspect KAT d/t hypotension, lack of perfusion - d/c toradol as not to add additional insult -held Bumex and olmesartan, now restarted Bumex - Cr today 0.72 (yesterday 0.80) Hypertension - during prior admission, HCTZ was stopped, but then restarted at SNF for ankle swelling -holding home olmesartan Neoplasm related pain - doing fairly well after prior admission - continue fentanyl patch and oxycodone 10 mg q4hr PRN for breakthrough pain - pt also receiving 1 mg morphine q2hr PRN - pt last palliative radiation 06/17/2022 - Continue home bowel regimen - pain well managed today Malignant 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 - follows with [facility] - pt curious about Xgeva injections while hospitalized; she states she is due for it now but her Ca levels were too low - 2500 mg Ca BID supplementation held Moderate obstructive sleep apnea - CPAP 13 cmH20 Anxiety and depression - Continue home duloxetine and lorazepam PRN (2) Diverticulitis: (3) Neoplasm related pain: (4) Malignant 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: (5) Lower extremity edema: (6) Anemia: (7) Hypotension after procedure: Plan FEN: low fiber Code: DNR DVT ppx: lovenox 40 mg qAM Dispo: med/surg, pt will need insurance auth to return to [facility] Admission and Anticipated Discharge Date Admission Date: June 19, 2022 Supervising Physician Co-Signing Physician Notes I personally examined the patient and verified all araujo points of history and exam, discussed case, and agree with decision making with Dr Caro Still has belly painhas a hard time deciding if it is better about the same. Pain medicines do seem to help. Not taking as often as she could if needed. Vitals noted, in general awake and alert fatigued no distress. HEENT normocephalic atraumatic mucous membranes moist. Breathing unlabored no accessory muscle use good effort. Skin shows no rashes no pallor or icterus. Abdomen soft, incisions clean dry and intact. No guarding rebound or rigidity no tendernessmuch improved from prior. Bilateral lumbar/lower thoracic paraspinals high tone, decreased range of motionresident physician and myself performed bracing, improvement in tissue texture, patient tolerated well. Diffuse bruising on left side of flank Complicated UTI with colovesicular fistulanow status post diverting colostomy. Continue Zosyn. Hypotensionhypovolemia perioperativeimproved with fluids and 1 unit packed red cells initially. Acute blood loss anemiaadditional transfusions a few days agonot unexpected given the surgical procedure and its complexity. KAT likely from acute blood loss anemia, improved. Continue to follow pain control closely. Subjective Yamilet is a 72 y/o female with PMH of GERD, HTN, HLD, RA, and breast cx w/ mets to bone (in current palliative radiation) presenting due to almost one week of fecal matter in her urine. Urine culture 06/15 showed E. coli EBSL sensitive to zosyn. Patient states she is doing ok today, admits to some more abdominal pain this morning. Has been able to eat and drink without issue. Denies shortness of breath or chest pain, does have an occasional cough today. Review of Systems Review of Systems: As per HPI. Physical Exam Constitutional: WD/WN, vitals as above Neck: trachea midline, no thyromegaly Respiratory: normal respiratory effort, lungs clear to auscultation Cardiovascular: RRR, no murmur, no edema Gastrointestinal (Abdomen): Abdomen normal to inspection (colostomy in place LLQ) Some ecchymosis on lower abdomen + bowel sounds Psychiatric: A+Ox3, euthymic affect Results & Data Results & Data ([facility]) Vital Signs (Past 12 Hours) Vital Signs Temp Pulse Resp BP Pulse Ox O2 Del Method 06/25/22 20:00 CPAP 06/25/22 21:33 36.6 C 72 18 123/72 94 Room Air Resident Activity Tracking Resident Involvement: Resident Care Provided Care Provided: Adult Hospital Medicine
[2022-06-26 06:51] LABS: Hematocrit (blood only) 24.2 % (34.1-44.9); Mean Corpuscular Hemoglobin 30.8 pg (25.0-34.0); Mean Corpuscular Hgb Conc 33.1 g/dL (32.0-36.0); Mean Corpuscular Volume 93.1 fL (80.0-100.0); Mean Platelet Volume 8.8 fL (9.4-12.3); Nucleated RBC # (auto) 0.11 K/uL (0-0); Nucleated RBC % (auto) 1.7 %; Platelet Count 123 K/uL (130-400); RDW Coefficient of Variation 15.6 % (11.5-14.5); RDW Standard Deviation 51.2 fL (36.4-46.3); White Blood Count 6.49 K/ul (4.8-10.8)
[2022-06-26 07:22] LABS: Albumin Globulin Ratio 1.2 (0.9-2); Albumin Level 2.7 gm/dl (3.4-5.0); BUN Creatinine Ratio 20.8 (10-20); Bilirubin,Total 0.6 mg/dl (0.2-1.0); Creatinine Clr Calc Pharmacy 79.7 ml/min; Est GFR (African American) 95.6 ml/min; Est GFR (Non-African American) 82.5 ml/min; Globulin 2.2 gm/dl (2.5-4.0); Potassium 3.9 mmol/L (3.5-5.1); Total Protein 4.9 gm/dl (6.0-8.3)
[2022-06-26] MEDS: fentaNYL 50 MCG/HR TDSY TD SCH (08:36)
[2022-06-26] MEDS: ACETAMINOPHEN 325 MG TAB PO SCH ×4 (08:59→21:23)
[2022-06-26] MEDS: ATORVASTATIN 10 MG TAB PO SCH (09:00)
[2022-06-26] MEDS: GABAPENTIN 300 MG CAP PO SCH ×2 (09:00→21:23)
[2022-06-26] MEDS: dexAMETHasone 4 MG TAB PO SCH (09:00)
[2022-06-26] MEDS: OLMESARTAN MEDOXOMIL 20 MG TAB PO SCH (09:00)
[2022-06-26] MEDS ORDERED: BUMETANIDE 1 MG TAB PO SCH (09:00)
[2022-06-26] MEDS: DULoxetine HCL 60 MG CAP PO SCH (09:00)
[2022-06-26] MEDS: allopurinoL 100 MG TAB PO SCH (09:00)
[2022-06-26] MEDS: PANTOprazole 40 MG TAB PO SCH (09:00)
[2022-06-26] MEDS: ENOXAPARIN INJ 40 MG/0.4 ML SYR SQ SCH (09:01)
[2022-06-26] MEDS: NYSTATIN POWDER 15GM BTL EXT SCH ×2 (09:02→21:23)
[2022-06-26] MEDS: LIDOCAINE 5% 1 PATCH TD SCH (09:02)
[2022-06-26] MEDS: LORazepam 0.5 MG TAB PO PRN ×2 (10:39→22:07)
[2022-06-26] MEDS: BUMETANIDE 1 MG TAB PO SCH (10:39)
--- NOTE | 2022-06-26 11:49 | Surgery Progress Note ---
Date of Service June 26, 2022 Assessment & Plan (1) H/O abdominal surgery: Plan: good progress Hbg stable at 8 Present on Admission?: Yes Admission and Anticipated Discharge Date Admission Date: June 19, 2022 Subjective pain controlled eating better Review of Systems Constitutional: no fever and no chills Cardiovascular: no chest pain Gastrointestinal: no abdominal pain, no nausea, no vomiting and no change in stools (ostomy beginning to work) Genitourinary: no dysuria Integumentary: no lesions Physical Exam Constitutional: WD/WN, vitals as above Respiratory: normal respiratory effort, lungs clear to auscultation Cardiovascular: RRR, no murmur, no edema Gastrointestinal (Abdomen): Inspection/Auscultation: abdomen normal to inspection (colostomy in place LLQ) and normal bowel sounds; abdomen not distended Percussion/Palpation: abdomen soft; abdomen nontender Musculoskeletal: Head/Neck/Chest: normocephalic and head atraumatic Results & Data ([facility]) Vital Signs (Past 12 Hours) Vital Signs Temp Pulse Resp BP Pulse Ox O2 Del Method 06/26/22 07:18 36.4 C L 70 16 152/82 H 98 CPAP
[2022-06-26] MEDS: HEPARIN 100 UNIT/ML 5ML FLUSH FLUSH PRN ×2 (13:03→22:07)
[2022-06-26] MEDS: MULTIVITAMIN TAB PO SCH (13:05)
--- NOTE | 2022-06-26 18:38 | Billing Data ---
Date of Service June 26, 2022 Coding Level of Care Code 78008 Subseq Hosp Care Lvl 3
[2022-06-27] MEDS: PIPERACILLIN/TAZOBACTAM 4.5 GM in DEXTROSE 5% 100 ML IV SCH ×3 (01:49→18:01)
[2022-06-27] MEDS: oxyCODONE HCL IR 5 MG TAB (IMMEDIATE RELEASE) PO PRN ×4 (01:52→20:58)
--- NOTE | 2022-06-27 06:57 | Hospitalist Progress Note ---
Date of Service June 27, 2022 Assessment & Plan (1) Colovesical fistula: Plan: Pt is a 72 yo female with PMH of GERD, HTN, HLD, RA, and breast cx w/ mets to bone (in current palliative radiation) presenting due to almost one week of fecal matter in her urine. Urine culture 06/15 showed E. coli EBSL sensitive to zosyn. Colovesical fistula - CTAP shows acute diverticulitis w/ a colovesical fistula, moderate stool burden in colon w/o obstruction - continue zosyn- day 8; plan for 14 day course at this point- discuss duration with surgery - urine culture 06/15 grew E. coli ESBL, repeat culture 06/19 grew 3 organisms, probable skin kana - 06/21 diverting colostomy w/o complication - Post op day #6: More ostomy output. Diverticulitis - CTAP as above - continue w/ ABX treatment Cough, +Wheezing - started to have an occasional cough yesterday, occasionally productive of small amounts of non-bloody sputum - today on exam had some wheezes in right upper lobe - denies SOB or constitutional symptoms (fever, body aches, chills), likely related to element of atelectasis - patient has incentive spirometer, emphasize importance of ambulation + use of IS Anemia-acute blood loss anemia - Hgb during last admission was around 12 - 12.5, but was decreasing - Hgb upon admission 9.1. Normocytic. - iron studies show normal iron at 98 w/ high ferritin at 458- aligns w/ anemia of chronic disease - 06/23: Hgb 6.2; pt clinically stable- transfused 3 units - today's Hgb 8.9 (8.0 yesterday) - management as above Lower leg edema - last echo 10/2021 showed EF of 55-60% w/ normal LV systolic function and mild LVH - stopped fluids on 06/25, restarted home 2mg bumex Post surgical hypotension- resolved - hypotensive in PACU, given IVF and phenylephrine - still hypotensive on medical floor down to 66/40, given 1 L NS bolus - checked stat CBC and BMP: Hgb of 7.4; given 1 unit of PRBCs, repeat Hgb 8.7 - Hgb then down to 6.2; transfused 2 units, repeat Hgb 8.9 - blood pressures stable and improving, most recent 122/79 - pt does not appear to be actively bleeding as she is clinically stable; most likely equalizing from losses d/t surgery - Hgb today 8.9 - continue to monitor KAT- resolved - Cr since admission stable around 0.9 range - 06/23 Cr 1.36 - suspect KAT d/t hypotension, lack of perfusion - d/c toradol as not to add additional insult -held Bumex and olmesartan, now restarted Bumex - Cr today 0.71 (yesterday 0.72) Hypertension - during prior admission, HCTZ was stopped, but then restarted at SNF for ankle swelling -holding home olmesartan Neoplasm related pain - doing fairly well after prior admission - continue fentanyl patch and oxycodone 10 mg q4hr PRN for breakthrough pain - pt also receiving 1 mg morphine q2hr PRN - pt last palliative radiation 06/17/2022 - Continue home bowel regimen - pain well managed today Malignant 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 - follows with [facility] oncology - pt curious about Xgeva injections while hospitalized; she states she is due for it now but her Ca levels were too low - 2500 mg Ca BID supplementation held Moderate obstructive sleep apnea - CPAP 13 cmH20 Anxiety and depression - Continue home duloxetine and lorazepam PRN (2) Diverticulitis: (3) Neoplasm related pain: (4) Malignant 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: (5) Lower extremity edema: (6) Anemia: (7) Hypotension after procedure: Plan FEN: low fiber Code: DNR DVT ppx: lovenox 40 mg qAM Dispo: med/surg, pt will need insurance auth to return to [facility] Admission and Anticipated Discharge Date Admission Date: June 19, 2022 Supervising Physician Co-Signing Physician Notes I personally examined the patient and verified all araujo points of history and exam, discussed case, and agree with decision making with Dr Caro A little bit of cough, nonproductive, no shortness of breath. Ongoing abdominal paindefinitely better than before, pain meds help but does not last long enough. Vitals noted, in general awake and alert fatigued no distress. HEENT normocephalic atraumatic mucous membranes moist. Breathing unlabored no accessory muscle use good effort. Skin shows no rashes no pallor or icterus. Abdomen soft, nondistended nontender no guarding rebound or rigidity no tenderness Complicated UTI with colovesicular fistulanow status post diverting colostomy. Continue Zosyn. Hypotensionhypovolemia perioperativeimproved with fluids and 1 unit packed red cells initially. Acute blood loss anemiaadditional transfusions a few days agonot unexpected given the surgical procedure and its complexity. KAT likely from acute blood loss anemia, improved. Continue to follow pain control closely. For now increase oxycodone to 15 mg. Given that she is still acutely postop, I doubt we will need to raise her basal pain control, but if pain control continues to be an issue, then could consider raising dose of fentanyl patch. Manuel Woodard is a 72 y/o female with PMH of GERD, HTN, HLD, RA, and breast cx w/ mets to bone (in current palliative radiation) presenting due to almost one week of fecal matter in her urine. Urine culture 06/15 showed E. coli EBSL sensitive to zosyn. Patient was seen and examined at bedside. Patient states that pain is better today, states her abdomen is "just a bit sore." Tolerating regular food and l iquids. Still has occasional productive cough. Denies shortness of breath/difficulty breathing/chest pain/fever/chills/body aches. Review of Systems Review of Systems: As per HPI. Physical Exam Constitutional: WD/WN, vitals as above Neck: trachea midline, no thyromegaly Respiratory: Left lung CTA, right lung few wheezes at upper lobe Cardiovascular: RRR, no murmur, no edema Gastrointestinal (Abdomen): Ostomy in place, diffuse ecchymosis across lower abdomen Psychiatric: A+Ox3, euthymic affect Results & Data Results & Data ([facility]) Vital Signs (Past 12 Hours) Vital Signs Temp Pulse Resp BP Pulse Ox O2 Del Method 06/26/22 21:00 Room Air, CPAP 06/26/22 21:10 36.8 C 89 20 159/80 H 94 Room Air Resident Activity Tracking Resident Involvement: Resident Care Provided Care Provided: Adult Hospital Medicine
[2022-06-27] MEDS: HEPARIN 100 UNIT/ML 5ML FLUSH FLUSH PRN ×3 (07:13→21:50)
[2022-06-27] MEDS: CHECK fentaNYL PATCH PLACEMENT SCH ×2 (07:14→15:16)
[2022-06-27] MEDS: LIDOCAINE 5% 1 PATCH TD SCH (07:18)
[2022-06-27 07:24] LABS: Hematocrit (blood only) 27.2 % (34.1-44.9); Hemoglobin 8.9 g/dl (12.0-16.0); Mean Corpuscular Hemoglobin 30.6 pg (25.0-34.0); Mean Corpuscular Hgb Conc 32.7 g/dL (32.0-36.0); Mean Corpuscular Volume 93.5 fL (80.0-100.0); Mean Platelet Volume 8.2 fL (9.4-12.3); Nucleated RBC # (auto) 0.12 K/uL (0-0); Nucleated RBC % (auto) 1.6 %; Platelet Count 137 K/uL (130-400); RDW Coefficient of Variation 15.8 % (11.5-14.5); RDW Standard Deviation 50.6 fL (36.4-46.3); Red Blood Count 2.91 M/uL (3.93-5.22)
[2022-06-27 07:55] LABS: Albumin Globulin Ratio 1.1 (0.9-2); Albumin Level 2.9 gm/dl (3.4-5.0); BUN Creatinine Ratio 25.4 (10-20); Bilirubin,Total 0.7 mg/dl (0.2-1.0); Calcium 7.4 mg/dl (8.5-10.1); Creatinine Clr Calc Pharmacy 80.8 ml/min; Est GFR (African American) 97.3 ml/min; Est GFR (Non-African American) 83.9 ml/min; Globulin 2.6 gm/dl (2.5-4.0); Potassium 3.6 mmol/L (3.5-5.1); Total Protein 5.5 gm/dl (6.0-8.3)
[2022-06-27 08:27] LABS: Basophils # (auto) 0.02 K/uL (0-0.2); Basophils % (auto) 0.3 %; Eosinophils # (auto) 0.04 K/uL (0-0.50); Eosinophils % (auto) 0.5 %; Immature Granulocytes # (auto) 0.58 K/uL (0.00-0.02); Immature Granulocytes % (auto) 7.9 %; Lymphocytes # (auto) 0.36 K/uL (1.2-3.4); Lymphocytes % (auto) 4.9 %; Monocytes # (auto) 0.33 K/uL (0.24-0.82); Monocytes % (auto) 4.5 %; Neutrophils # (auto) 5.97 K/uL (1.4-6.5); Neutrophils % (auto) 81.9 %; Polychromasia 1+; Toxic Granulation 1+
[2022-06-27] MEDS: GABAPENTIN 300 MG CAP PO SCH ×2 (08:59→20:57)
[2022-06-27] MEDS: PANTOprazole 40 MG TAB PO SCH (08:59)
[2022-06-27] MEDS: DULoxetine HCL 60 MG CAP PO SCH (08:59)
[2022-06-27] MEDS: OLMESARTAN MEDOXOMIL 20 MG TAB PO SCH (08:59)
[2022-06-27] MEDS: NYSTATIN POWDER 15GM BTL EXT SCH ×2 (09:00→20:57)
[2022-06-27] MEDS: BUMETANIDE 1 MG TAB PO SCH (09:00)
[2022-06-27] MEDS: dexAMETHasone 4 MG TAB PO SCH (09:00)
[2022-06-27] MEDS: allopurinoL 100 MG TAB PO SCH (09:00)
[2022-06-27] MEDS: ACETAMINOPHEN 325 MG TAB PO SCH ×4 (09:00→20:57)
[2022-06-27] MEDS: ENOXAPARIN INJ 40 MG/0.4 ML SYR SQ SCH (09:01)
[2022-06-27] MEDS: ATORVASTATIN 10 MG TAB PO SCH (10:00)
[2022-06-27] MEDS: MULTIVITAMIN TAB PO SCH (12:45)
--- NOTE | 2022-06-27 12:51 | Surgery Progress Note ---
Date of Service June 27, 2022 Assessment & Plan (1) H/O abdominal surgery: Plan: good progress home soon Admission and Anticipated Discharge Date Admission Date: June 19, 2022 Subjective pain controlled ostomy working well Review of Systems Constitutional: no fever and no chills Gastrointestinal: no abdominal pain, no nausea and no vomiting Genitourinary: no dysuria Physical Exam Constitutional: WD/WN, vitals as above Neck: trachea midline Respiratory: normal respiratory effort, lungs clear to auscultation Cardiovascular: RRR, no murmur, no edema Gastrointestinal (Abdomen): Inspection/Auscultation: abdomen normal to inspection, normal bowel sounds and + abdominal surgical incision; abdomen not distended Percussion/Palpation: + abdomen tender and abdomen soft; no guarding and abdomen not rigid Musculoskeletal: Head/Neck/Chest: + abnormal head shape and + evidence of head trauma Results & Data ([facility]) Vital Signs (Past 12 Hours) Vital Signs Temp Pulse Resp BP Pulse Ox O2 Del Method 06/27/22 07:12 Room Air, CPAP 06/27/22 07:25 36.5 C 74 16 154/81 H 99 Room Air
[2022-06-27] MEDS: MoRPHine SULFATE 2 MG/ML CARP IV PRN (13:41)
--- NOTE | 2022-06-27 18:35 | Billing Data ---
Date of Service June 27, 2022 Coding Level of Care Code 81157 Subseq Hosp Care Lvl 3
[2022-06-27] MEDS: LORazepam 0.5 MG TAB PO PRN (20:57)
[2022-06-28] MEDS: CHECK fentaNYL PATCH PLACEMENT SCH ×3 (01:02→15:34)
[2022-06-28] MEDS: PIPERACILLIN/TAZOBACTAM 4.5 GM in DEXTROSE 5% 100 ML IV SCH ×3 (02:23→17:33)
[2022-06-28] MEDS: oxyCODONE HCL IR 5 MG TAB (IMMEDIATE RELEASE) PO PRN ×4 (03:30→21:02)
[2022-06-28] MEDS: HEPARIN 100 UNIT/ML 5ML FLUSH FLUSH PRN ×3 (05:58→21:21)
[2022-06-28 06:39] LABS: Hematocrit (blood only) 25.3 % (34.1-44.9); Hemoglobin 8.4 g/dl (12.0-16.0); Mean Corpuscular Hemoglobin 31.3 pg (25.0-34.0); Mean Corpuscular Hgb Conc 33.2 g/dL (32.0-36.0); Mean Corpuscular Volume 94.4 fL (80.0-100.0); Mean Platelet Volume 8.9 fL (9.4-12.3); Nucleated RBC # (auto) 0.09 K/uL (0-0); Nucleated RBC % (auto) 1.4 %; Platelet Count 142 K/uL (130-400); RDW Coefficient of Variation 16.2 % (11.5-14.5); RDW Standard Deviation 51.8 fL (36.4-46.3); Red Blood Count 2.68 M/uL (3.93-5.22); White Blood Count 6.28 K/ul (4.8-10.8)
[2022-06-28 07:02] LABS: Eosinophils # (auto) 0.03 K/uL (0-0.50); Eosinophils % (auto) 0.5 %; Immature Granulocytes # (auto) 0.45 K/uL (0.00-0.02); Immature Granulocytes % (auto) 7.2 %; Lymphocytes # (auto) 0.22 K/uL (1.2-3.4); Lymphocytes % (auto) 3.5 %; Monocytes % (auto) 4.8 %; Neutrophils # (auto) 5.28 K/uL (1.4-6.5)
--- NOTE | 2022-06-28 07:09 | Hospitalist Progress Note ---
Date of Service June 28, 2022 Assessment & Plan (1) Colovesical fistula: Plan: Pt is a 72 yo female with PMH of GERD, HTN, HLD, RA, and breast cx w/ mets to bone (in current palliative radiation) presenting due to almost one week of fecal matter in her urine. Urine culture 06/15 showed E. coli EBSL sensitive to zosyn. Colovesical fistula - CTAP shows acute diverticulitis w/ a colovesical fistula, moderate stool burden in colon w/o obstruction; post op day 7 diverting colostomy w/out complication - urine culture 06/15 grew E. coli ESBL, repeat culture 06/19 grew 3 organisms, probable skin kana - continue Zosyn- day 9- need to discuss course and possible PO options with surgery Diverticulitis - CTAP as above - continue w/ ABX treatment Cough, +Wheezing - started to have an occasional cough yesterday, occasionally productive of small amounts of non-bloody sputum - lungs CTA on exam; denies cough this morning - denies SOB or constitutional symptoms (fever, body aches, chills), likely related to element of atelectasis - patient has incentive spirometer, emphasize importance of ambulation + use of IS - if worsening could consider chest x-ray Anemia-acute blood loss anemia - Hgb during last admission was around 12 - 12.5, but was decreasing - Hgb upon admission 9.1. Normocytic. - iron studies show normal iron at 98 w/ high ferritin at 458- aligns w/ anemia of chronic disease - 06/23: Hgb 6.2; pt clinically stable- transfused 3 units - today's Hgb 8.4 (8.9 yesterday) Lower leg edema - last echo 10/2021 showed EF of 55-60% w/ normal LV systolic function and mild LVH - stopped fluids on 06/25, restarted home 2mg bumex; euvolemic on exam Post surgical hypotension- resolved - hypotensive post operatively secondary to drop in hemoglobin; improved post transfusion - continue to monitor KAT- resolved - Cr since admission stable around 0.9 range - 06/23 Cr 1.36 - suspect KAT d/t hypotension, lack of perfusion - d/c toradol as not to add additional insult -held Bumex and olmesartan, now restarted Bumex - Cr today 0.74 (yesterday 0.72) Hypertension - during prior admission, HCTZ was stopped, but then restarted at SN[facility] for ankle swelling -holding home olmesartan, and HCTZ Neoplasm related pain - doing fairly well after prior admission - continue fentanyl patch and oxycodone 10 mg q4hr PRN for breakthrough pain - pt also receiving 1 mg morphine q2hr PRN - pt last palliative radiation 06/17/2022 - Continue home bowel regimen - pain well managed today Malignant 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 - follows with [facility] oncology - pt curious about Xgeva injections while hospitalized; she states she is due for it now but her Ca levels were too low - 2500 mg Ca BID supplementation held Moderate obstructive sleep apnea - CPAP 13 cmH20 Anxiety and depression - Continue home duloxetine and lorazepam PRN (2) Diverticulitis: (3) Neoplasm related pain: (4) Malignant 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 Azar. In agreement with the documented findings as noted in the resident documentation with any exceptions or additions as noted here. Pain somewhat controlled on present regimen. Patient will let us know if increased control is warranted, focusing on PO regimen to support transition to outpatient. VS, nursing notes, labs and imaging reviewed. On examination, S1/S2 nl RRR no MCG. CTAB. Abd NT/ND BS+ve. Ostomy in place and without significant irritation. Complicated UTI w/ colovesicular fistula s/p diverting coloscopy - continue Zosyn - likely course 2 wks, will d/w surgery. CM aware. Pain management to adjust to PO as required. Acute blood loss anemia s/p transfusions - trend CBC daily, transfuse at 7. Else see resident documentation as noted. Subjective Yamilet is a 72 y/o female with PMH of GERD, HTN, HLD, RA, and breast cx w/ mets to bone (in current palliative radiation) presenting due to almost one week of fecal matter in her urine. Urine culture 11/15 showed E. coli EBSL sensitive to zosyn. Doing well without complaint this morning.Good output from osteotomy. Pain is improved; still have some mild lower abdominal pain. Good appetite. Denies cough, wheezing, dyspnea, chest pain this morning. Review of Systems Review of Systems: As per HPI. Physical Exam Constitutional: WD/WN, vitals as above Neck: trachea midline, no thyromegaly Respiratory: Lungs CTA B/L Cardiovascular: RRR, no murmur, no edema Gastrointestinal (Abdomen): Ostomy in place, diffuse ecchymosis across lower abdomenn into left gluteus Psychiatric: A+Ox3, euthymic affect Results & Data Results & Data ([facility]) Vital Signs (Past 12 Hours) Vital Signs Temp Pulse Resp BP Pulse Ox O2 Del Method 06/27/22 22:24 37 C 76 18 124/73 96 Room Air Resident Activity Tracking Resident Involvement: Resident Care Provided Care Provided: Adult Hospital Medicine
[2022-06-28 07:10] LABS: Albumin Globulin Ratio 1.2 (0.9-2); Albumin Level 2.8 gm/dl (3.4-5.0); BUN Creatinine Ratio 28.6 (10-20); Bilirubin,Total 0.8 mg/dl (0.2-1.0); Calcium 7.2 mg/dl (8.5-10.1); Est GFR (African American) 98.9 ml/min; Est GFR (Non-African American) 85.4 ml/min; Globulin 2.3 gm/dl (2.5-4.0); Potassium 3.4 mmol/L (3.5-5.1); Total Protein 5.1 gm/dl (6.0-8.3)
[2022-06-28] MEDS ORDERED: POTASSIUM CHLORIDE CRTAB 20 MEQ TABCR PO ONE (07:30)
[2022-06-28] MEDS: BUMETANIDE 1 MG TAB PO SCH (08:38)
[2022-06-28] MEDS: GABAPENTIN 300 MG CAP PO SCH ×2 (08:38→21:01)
[2022-06-28] MEDS: allopurinoL 100 MG TAB PO SCH (08:38)
[2022-06-28] MEDS: LIDOCAINE 5% 1 PATCH TD SCH (08:38)
[2022-06-28] MEDS: dexAMETHasone 4 MG TAB PO SCH (08:38)
[2022-06-28] MEDS: ATORVASTATIN 10 MG TAB PO SCH (08:39)
[2022-06-28] MEDS: OLMESARTAN MEDOXOMIL 20 MG TAB PO SCH (08:39)
[2022-06-28] MEDS: PANTOprazole 40 MG TAB PO SCH (08:39)
[2022-06-28] MEDS: SIMETHICONE 80 MG CHEW PO PRN (08:39)
[2022-06-28] MEDS: DULoxetine HCL 60 MG CAP PO SCH (08:39)
[2022-06-28] MEDS: ENOXAPARIN INJ 40 MG/0.4 ML SYR SQ SCH (08:40)
[2022-06-28] MEDS: ACETAMINOPHEN 325 MG TAB PO SCH ×4 (08:40→21:01)
[2022-06-28] MEDS: NYSTATIN POWDER 15GM BTL EXT SCH ×2 (08:40→21:02)
[2022-06-28] MEDS: MULTIVITAMIN TAB PO SCH (10:39)
--- NOTE | 2022-06-28 19:55 | Surgery Progress Note ---
Date of Service June 28, 2022 Assessment & Plan (1) H/O abdominal surgery: Plan: Doing well from my standpoint. No acute surgical issues. Discharge planning. She could be discharged from my standpoint. Admission and Anticipated Discharge Date Admission Date: June 19, 2022 Subjective Patient seen. She is doing well. She feels well. She is eating and her ostomy is functioning. Her urinary function has dramatically improved. Physical Exam Physical Exam: Alert. No acute distress. Abdomen soft. Stoma functioning Results & Data ([facility]) Vital Signs (Past 12 Hours) Vital Signs Temp Pulse Pulse Resp BP Pulse Ox O2 Del Method 06/28/22 14:50 36.6 C 96 H 16 114/77 96 Room Air 06/28/22 11:52 37.2 C 96 H 16 138/80 95 Room Air 06/28/22 09:41 94 PG Care Time/CCT Total # of Minutes Spent Total Time Spent with Patient: Total time spent is greater than 50% in coordination of care (as documented) at patient's floor/unit and/or counseling patient: Coding Level of Care Code None Diagnoses H/O abdominal surgery Z98.890
[2022-06-28] MEDS: LORazepam 0.5 MG TAB PO PRN (21:01)
[2022-06-29] MEDS: CHECK fentaNYL PATCH PLACEMENT SCH ×2 (00:39→08:00)
[2022-06-29] MEDS: oxyCODONE HCL IR 5 MG TAB (IMMEDIATE RELEASE) PO PRN ×2 (01:56→14:18)
[2022-06-29] MEDS: PIPERACILLIN/TAZOBACTAM 4.5 GM in DEXTROSE 5% 100 ML IV SCH ×2 (01:57→09:41)
[2022-06-29] MEDS: HEPARIN 100 UNIT/ML 5ML FLUSH FLUSH PRN (06:06)
--- NOTE | 2022-06-29 07:11 | Hospitalist Progress Note ---
Date of Service June 29, 2022 Assessment & Plan (1) Colovesical fistula: Plan: Pt is a 72 yo female with PMH of GERD, HTN, HLD, RA, and breast cx w/ mets to bone (in current palliative radiation) presenting due to almost one week of fecal matter in her urine. Urine culture 06/15 showed E. coli EBSL sensitive to zosyn. Colovesical fistula - CTAP shows acute diverticulitis w/ a colovesical fistula, moderate stool burden in colon w/o obstruction; post op day 7 diverting colostomy w/out complication - urine culture 06/15 grew E. coli ESBL, repeat culture 06/19 grew 3 organisms, probable skin kana - continue Zosyn- day 9- need to discuss course and possible PO options with surgery Diverticulitis - CTAP as above - continue w/ ABX treatment Cough, +Wheezing - started to have an occasional cough yesterday, occasionally productive of small amounts of non-bloody sputum - lungs CTA on exam; denies cough this morning - denies SOB or constitutional symptoms (fever, body aches, chills), likely related to element of atelectasis - patient has incentive spirometer, emphasize importance of ambulation + use of IS - if worsening could consider chest x-ray Anemia-acute blood loss anemia - Hgb during last admission was around 12 - 12.5, but was decreasing - Hgb upon admission 9.1. Normocytic. - iron studies show normal iron at 98 w/ high ferritin at 458- aligns w/ anemia of chronic disease - 06/23: Hgb 6.2; pt clinically stable- transfused 3 units - today's Hgb 8.4 (8.9 yesterday) Lower leg edema - last echo 10/2021 showed EF of 55-60% w/ normal LV systolic function and mild LVH - stopped fluids on 06/25, restarted home 2mg bumex; euvolemic on exam Post surgical hypotension- resolved - hypotensive post operatively secondary to drop in hemoglobin; improved post transfusion - continue to monitor KAT- resolved - Cr since admission stable around 0.9 range - 06/23 Cr 1.36 - suspect KAT d/t hypotension, lack of perfusion - d/c toradol as not to add additional insult -held Bumex and olmesartan, now restarted Bumex - Cr today 0.74 (yesterday 0.72) Hypertension - during prior admission, HCTZ was stopped, but then restarted at SNF for ankle swelling -holding home olmesartan, and HCTZ Neoplasm related pain - doing fairly well after prior admission - continue fentanyl patch and oxycodone 10 mg q4hr PRN for breakthrough pain - pt also receiving 1 mg morphine q2hr PRN - pt last palliative radiation 06/17/2022 - Continue home bowel regimen - pain well managed today Malignant 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 - follows with [facility] - pt curious about Xgeva injections while hospitalized; she states she is due for it now but her Ca levels were too low - 2500 mg Ca BID supplementation held Moderate obstructive sleep apnea - CPAP 13 cmH20 Anxiety and depression - Continue home duloxetine and lorazepam PRN (2) Diverticulitis: (3) Neoplasm related pain: (4) Malignant 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: (5) Lower extremity edema: (6) Anemia: (7) Hypotension after procedure: Plan FEN: low fiber Code: DNR DVT ppx: lovenox 40 mg qAM Dispo: med/surg, pt will need insurance auth to return to [facility] Admission and Anticipated Discharge Date Admission Date: June 19, 2022 Supervising Physician Co-Signing Physician Notes Attending attestation Pt seen and examined in concert with Dr. Azar. In agreement with the documented findings as noted in the resident documentation with any exceptions or additions as noted here. Pain controlled on present regimen which is roughly equivalent in MME to her home regimen. VS, nursing notes, labs and imaging reviewed. On examination, S1/S2 nl RRR no MCG. CTAB. Abd NT/ND BS+ve. Ostomy in place and without significant irritation. Complicated UTI w/ colovesicular fistula s/p diverting coloscopy - to complete two week course of antibiotics as noted above. COVID+ve - mild, if any, symptoms. Conservative measures, isolation and monitoring. Consider further interventions if symptoms develop. Acute blood loss anemia s/p transfusions - hgb has been stable post transfusion, monitor for signs/sx of GIB Else see resident documentation as noted. Total attending physician time spent with this patient's care on the day of discharge: 40 minutes. Review of Systems Review of Systems: As per HPI. Physical Exam Constitutional: WD/WN, vitals as above Neck: trachea midline, no thyromegaly Cardiovascular: RRR, no murmur, no edema Psychiatric: A+Ox3, euthymic affect Results & Data Results & Data ([facility]) Vital Signs (Past 12 Hours) Vital Signs Temp Pulse Resp BP Pulse Ox O2 Del Method 06/28/22 21:10 Room Air 06/28/22 21:35 36.5 C 84 18 116/77 95 Room Air
[2022-06-29 07:12] VITALS: TEMP 97.9
[2022-06-29] MEDS: ACETAMINOPHEN 325 MG TAB PO SCH ×2 (08:51→14:18)
[2022-06-29] MEDS: ATORVASTATIN 10 MG TAB PO SCH (08:52)
[2022-06-29] MEDS: allopurinoL 100 MG TAB PO SCH (08:52)
[2022-06-29] MEDS: ENOXAPARIN INJ 40 MG/0.4 ML SYR SQ SCH (08:53)
[2022-06-29] MEDS: BUMETANIDE 1 MG TAB PO SCH (08:53)
[2022-06-29] MEDS: GABAPENTIN 300 MG CAP PO SCH (08:53)
[2022-06-29] MEDS: dexAMETHasone 4 MG TAB PO SCH (08:53)
[2022-06-29] MEDS: DULoxetine HCL 60 MG CAP PO SCH (08:53)
[2022-06-29] MEDS: PANTOprazole 40 MG TAB PO SCH (08:54)
[2022-06-29] MEDS: OLMESARTAN MEDOXOMIL 20 MG TAB PO SCH (08:54)
[2022-06-29] MEDS: NYSTATIN POWDER 15GM BTL EXT SCH (08:54)
[2022-06-29] MEDS: LIDOCAINE 5% 1 PATCH TD SCH (08:54)
[2022-06-29] MEDS: fentaNYL 50 MCG/HR TDSY TD SCH (08:59)
--- NOTE | 2022-06-29 09:25 | Surgery Progress Note ---
Date of Service June 29, 2022 Assessment & Plan (1) H/O abdominal surgery: Plan: s/p diverting colostomy for diverticulitis with colovesical fistula tolerating diet, + ostomy function no complaints. discussed with RN wounds/ostomy looks well. pt was on commode du ring my visit okay for dispo from our standpoint complete course of abx, we are okay with transition to PO f/u with dr. salazar for post op f/u (2) Colovesical fistula: Admission and Anticipated Discharge Date Admission Date: June 19, 2022 Subjective Pt is on the commode voiding. Says she is doing well. Tolerating a diet. + ostomy function. pain controlled Physical Exam Physical Exam: awake/alert, no distress Results & Data ([facility]) Vital Signs (Past 12 Hours) Vital Signs Temp Pulse Resp BP Pulse Ox O2 Del Method 06/29/22 07:10 36.6 C 85 16 114/75 99 CPAP 06/28/22 21:35 36.5 C 84 18 116/77 95 Room Air PG Care Time/CCT Total # of Minutes Spent Total Time Spent with Patient: Total time spent is greater than 50% in coordination of care (as documented) at patient's floor/unit and/or counseling patient: Coding Level of Care Code None Diagnoses H/O abdominal surgery Z98.890 Colovesical fistula N32.1
[2022-06-29] MEDS: SIMETHICONE 80 MG CHEW PO PRN (09:50)
[2022-06-29 10:25] LABS: Hematocrit (blood only) 28.8 % (34.1-44.9); Hemoglobin 9.5 g/dl (12.0-16.0); Mean Corpuscular Hemoglobin 30.9 pg (25.0-34.0); Mean Corpuscular Volume 93.8 fL (80.0-100.0); Mean Platelet Volume 8.9 fL (9.4-12.3); Nucleated RBC # (auto) 0.04 K/uL (0-0); Nucleated RBC % (auto) 0.6 %; Platelet Count 189 K/uL (130-400); RDW Coefficient of Variation 16.8 % (11.5-14.5); RDW Standard Deviation 51.8 fL (36.4-46.3); Red Blood Count 3.07 M/uL (3.93-5.22); White Blood Count 7.24 K/ul (4.8-10.8)
[2022-06-29 10:46] LABS: Basophils # (auto) 0.01 K/uL (0-0.2); Basophils % (auto) 0.1 %; Eosinophils # (auto) 0.02 K/uL (0-0.50); Eosinophils % (auto) 0.3 %; Immature Granulocytes # (auto) 0.22 K/uL (0.00-0.02); Lymphocytes % (auto) 2.8 %; Monocytes # (auto) 0.23 K/uL (0.24-0.82); Monocytes % (auto) 3.2 %; Neutrophils # (auto) 6.56 K/uL (1.4-6.5); Neutrophils % (auto) 90.6 %; RBC Morphology Unremarkable
[2022-06-29 10:54] LABS: Albumin Globulin Ratio 1.2 (0.9-2); BUN Creatinine Ratio 30.8 (10-20); Bilirubin,Total 0.8 mg/dl (0.2-1.0); Calcium 7.5 mg/dl (8.5-10.1); Creatinine Clr Calc Pharmacy 88.3 ml/min; Est GFR (African American) 101.4 ml/min; Est GFR (Non-African American) 87.5 ml/min; Globulin 2.6 gm/dl (2.5-4.0); Total Protein 5.6 gm/dl (6.0-8.3)
[2022-06-29] MEDS ORDERED: POTASSIUM CHLORIDE CRTAB 20 MEQ TABCR PO ONE (12:51)
[2022-06-29] MEDS: MULTIVITAMIN TAB PO SCH (14:18)
[2022-06-29 14:50] VITALS: BP 116/76; PULSE 84; O2SAT 96
--- NOTE | 2022-06-29 15:35 | Discharge Summary ---
Date of Service June 29, 2022 Admission HPI Per Admitting Provider 72yo F w/ hx of metastatic breast cancer who presents with diverticulitis and colovesicular fistula. The patient reports that she was doing fairly well at [facility] after her discharge for intractable pain. Her pain had generally been fairly well controlled, and she was doing ok. On Tuesday night (into Tuesday) of last week (06/14-06/15), she had an abrupt change in her urine color, and it became feculent. This was an abrupt change. She also had some dysuria with this change. She was started on ciprofloxacin and culture was done. This was about 4 days ago. She was then switched over to Augmentin; however, this also has not changed things at all. She was sent info for IV abx as she continues to have feculent urine. Admission Exam Per Admitting Provider Constitutional: WD/WN, vitals as above Eyes: EOM intact bilaterally; no conjunctival abnormality ENMT: external ear and nose normal, oropharynx normal Neck: trachea midline, no thyromegaly normal visual inspection Respiratory: normal respiratory effort, lungs clear to auscultation no respiratory distress Cardiovascular: RRR, no murmur, no edema Gastrointestinal (Abdomen): Inspection/Auscultation: abdomen normal to inspection; abdomen not distended Musculoskeletal: no cyanosis or clubbing, extremities motor strength 5/5 Skin: no rashes, warm and dry Neurologic: moves all extremities and awake Psychiatric: Orientation: alert, oriented to person and cooperative Principal Diagnosis Colovesical fistula Discharge Exam Constitutional: WD/WN, vitals as above Neck: trachea midline, no thyromegaly Respiratory: Lungs CTA B/L Cardiovascular: RRR, no murmur, no edema Gastrointestinal (Abdomen): Ostomy in place, diffuse ecchymosis across lower abdomenn into left gluteus Psychiatric: A+Ox3, euthymic affect Discharge Data Allergies Allergy/AdvReac Type Severity Reaction Status Date / Time No Known Allergies Allergy Verified 06/19/22 19:31 Consultations 06/19/22 20:08 ED Decision to Admit Stat 06/19/22 20:09 Consult General Surgery Routine 06/19/22 22:35 Consult Urology Routine Procedures Performed Operation Date: 06/21/22 13:25 Actual Procedures p Laparoscopic Assisted Diverting Colostomy(Not Applicable) - Johnnie Villarreal, DO Ordered Studies 06/19/22 18:52 CT abd pelvis IV con only Stat Laboratory Results WBC 7.24 K/ul (4.8-10.8) 06/29/22 09:53 RBC 3.07 M/uL (3.93-5.22) L 06/29/22 09:53 Hgb 9.5 g/dl (12.0-16.0) L 06/29/22 09:53 POC Hgb 8.8 g/dl (12.0-16.0) L 06/19/22 19:13 Hct 28.8 % (34.1-44.9) L 06/29/22 09:53 POC Hct 26 % (37-47) L 06/19/22 19:13 MCV 93.8 fL (80.0-100.0) 06/29/22 09:53 MCH 30.9 pg (25.0-34.0) 06/29/22 09:53 MCHC 33.0 g/dL (32.0-36.0) 06/29/22 09:53 RDW Std Deviation 51.8 fL (36.4-46.3) H 06/29/22 09:53 RDW Coeff of [place] 16.8 % (11.5-14.5) H 06/29/22 09:53 Plt Count 189 K/uL (130-400) 06/29/22 09:53 MPV 8.9 fL (9.4-12.3) L 06/29/22 09:53 Immature Gran % (Auto) 3.0 % 06/29/22 09:53 Neut % (Auto) 90.6 % 06/29/22 09:53 Lymph % (Auto) 2.8 % 06/29/22 09:53 [place] % (Auto) 3.2 % 06/29/22 09:53 Eos % (Auto) 0.3 % 06/29/22 09:53 Baso % (Auto) 0.1 % 06/29/22 09:53 Neut # (Auto) 6.56 K/uL (1.4-6.5) H 06/29/22 09:53 Lymph # (Auto) 0.20 K/uL (1.2-3.4) L 06/29/22 09:53 Shelby # (Auto) 0.23 K/uL (0.24-0.82) L 06/29/22 09:53 Eos # (Auto) 0.02 K/uL (0-0.50) 06/29/22 09:53 Baso # (Auto) 0.01 K/uL (0-0.2) 06/29/22 09:53 Immature Gran # (Auto) 0.22 K/uL (0.00-0.02) H 06/29/22 09:53 Absolute Nucleated RBC 0.04 K/uL (0-0) H 06/29/22 09:53 Nucleated RBC % (auto) 0.6 % 06/29/22 09:53 Neutrophils % (Manual) 87 % 06/19/22 19:00 Lymphocytes % (Manual) 4 % 06/19/22 19:00 Monocytes % (Manual) 3 % 06/19/22 19:00 Metamyelocytes % (Man) 1 % 06/19/22 19:00 Myelocytes % (Man) 4 % 06/19/22 19:00 Neutrophils # (Manual) 3.02 K/uL (1.4-6.5) 06/19/22 19:00 Lymphocytes # (Manual) 0.14 K/uL (1.2-3.4) L 06/19/22 19:00 Monocytes # (Manual) 0.10 K/uL (0.24-0.82) L 06/19/22 19:00 Metamyelocytes # (Man) 0.03 K/uL (0-0) H 06/19/22 19:00 Myelocytes # (Manual) 0.14 K/uL (0-0) H 06/19/22 19:00 Toxic Granulation 1+ 06/27/22 07:10 Toxic Vacuolation 1+ 06/19/22 19:00 Dohle Bodies 1+ 06/19/22 19:00 RBC Morphology Unremarkable 06/29/22 09:53 Polychromasia 1+ 06/27/22 07:10 Microcytosis Present 06/21/22 19:08 POC Sodium 136 mmol/L (135-144) 06/19/22 19:13 Sodium 139 mmol/L (136-145) 06/29/22 09:53 POC Potassium 3.7 mmol/L (3.3-5.0) 06/19/22 19:13 Potassium 3.0 mmol/L (3.5-5.1) L 06/29/22 09:53 POC Chloride 97 mmol/L (101-112) L 06/19/22 19:13 Chloride 102 mmol/L (98-107) 06/29/22 09:53 Carbon Dioxide 29 mmol/L (21-32) 06/29/22 09:53 POC Total CO2 28 mmol/L (24-31) 06/19/22 19:13 Anion Gap 8 (3-11) 06/29/22 09:53 POC Anion Gap 16.0 mmol/L (16-25) 06/19/22 19:13 POC BUN 32 mg/dl (7-18) H 06/19/22 19:13 BUN 20 mg/dl (6-23) 06/29/22 09:53 Creatinine 0.65 mg/dl (0.6-1.2) 06/29/22 09:53 POC Creatinine 1.0 mg/dl (0.6-1.3) 06/19/22 19:13 Est Cr Clr Drug Dosing 88.3 ml/min 06/29/22 09:53 Est GFR ( Amer) 101.4 ml/min 06/29/22 09:53 Est GFR (Non-Af Amer) 87.5 ml/min 06/29/22 09:53 BUN/Creatinine Ratio 30.8 (10-20) H 06/29/22 09:53 Glucose 192 mg/dl (70-99(Fasting)) H 06/29/22 09:53 POC Glucose (other) 134 mg/dl (70-99) H 06/19/22 19:13 Calcium 7.5 mg/dl (8.5-10.1) L 06/29/22 09:53 POC Ioniz Calcium Willi 1.03 mmol/l (1.12-1.32) L 06/19/22 19:13 Magnesium 1.9 mg/dl (1.7-2.4) 06/20/22 05:58 Iron 98 mcg/dl (35-150) 06/20/22 05:58 TIBC 199 mcg/dl (250-450) L 06/20/22 05:58 Unsaturated IBC 101 mcg/dl (155-355) L 06/20/22 05:58 Transferrin % Sat 49 % (15-50) 06/20/22 05:58 Ferritin 458.1 ng/ml (8-388) H 06/20/22 05:58 Total Bilirubin 0.8 mg/dl (0.2-1.0) 06/29/22 09:53 AST 19 U/L (13-39) 06/29/22 09:53 ALT 19 U/L (7-52) 06/29/22 09:53 Alkaline Phosphatase 75 U/L (34-104) 06/29/22 09:53 Total Protein 5.6 gm/dl (6.0-8.3) L 06/29/22 09:53 Albumin 3.0 gm/dl (3.4-5.0) L 06/29/22 09:53 Globulin 2.6 gm/dl (2.5-4.0) 06/29/22 09:53 Albumin/Globulin Ratio 1.2 (0.9-2) 06/29/22 09:53 Lipase 11 U/L (11-82) 06/19/22 19:00 Vitamin B12 1056 pg/ml (180-914) H 06/20/22 05:58 Folate > 22.30 ng/ml (>5.38) 06/20/22 05:58 Urine Color Dark Yellow 06/19/22 18:45 Urine Appearance Turbid (Clear) A 06/19/22 18:45 Urine pH 8.5 (4.5-7.5) H 06/19/22 18:45 Ur Specific [place] 1.015 (1.000-1.030) 06/19/22 18:45 Urine Protein 1+ (Negative) H 06/19/22 18:45 Urine Glucose (UA) Negative (Negative) 06/19/22 18:45 Urine Ketones Negative (Negative) 06/19/22 18:45 Urine Blood 2+ (Negative) H 06/19/22 18:45 Urine Nitrite Positive (Negative) A 06/19/22 18:45 Urine Bilirubin Negative (Negative) 06/19/22 18:45 Urine Urobilinogen Negative (Negative) 06/19/22 18:45 Ur Leukocyte Esterase 3+ (Negative) H 06/19/22 18:45 Urine RBC >30 /hpf (0-4) H 06/19/22 18:45 Urine WBC >30 /hpf (0-5) H 06/19/22 18:45 Ur Epithelial Cells 5-10 /lpf (0-5) H 06/19/22 18:45 Urine Bacteria 4+ (Negative) H 06/19/22 18:45 Nasal Screen MRSA (PCR) Negative (Negative) 06/19/22 Unknown SARS-CoV-2, RNA, NAAT POSITIVE (NEGATIVE) A* 06/29/22 11:01 Blood Type A Negative 06/21/22 13:58 Antibody Screen NEGATIVE 06/21/22 13:58 Crossmatch See Detail 06/21/22 13:58 Impressions Abdomen/Pelvis CT 06/19/22 18:52 CT OF THE ABDOMEN AND PELVIS WITH CONTRAST CLINICAL HISTORY: 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 Metastatic breast cancer. COMPARISON STUDY: CT of the abdomen and pelvis April 20, 2022 and KUB May 30, 2022. PET/CT April 09, 2022. TECHNIQUE: Following IV administration of 100 mL of Optiray, axial images of the abdomen and pelvis were obtained from the lung bases to the proximal femurs. Images were reviewed in the axial, sagittal, and coronal planes. IV contrast was administered without complication. Automated exposure control was utilized for the study. A dose lowering technique was utilized adhering to the principles of ALARA. CT DOSE: 1678.42 mGy.cm FINDINGS: A small left pleural effusion is similar to CT of April 20, 2022. A hiatal hernia with partially intrathoracic stomach is noted. No pneumatosis, free air or portal venous gas is present. There is no significant biliary ductal dilatation status post cholecystectomy. Spleen, adrenal glands, kidneys and pancreas are unremarkable with the exception of several subcentimeter renal lesions which are too small to characterize. There is no hydronephrosis. There is no peripancreatic infiltration. No pancreatic ductal dilatation is present. Right hip arthroplasty is noted. Innumerable sclerotic skeletal lesions are again noted. Conspicuity of these lesions has increased since CT of April 20, 2022. Methylmethacrylate within the bilateral sacral ala with bilateral sacral fractures. Moderate amount of stool within the colon is noted. There is no evidence for a bowel obstruction. Colonic diverticulosis is noted. A 4.5 x 2 cm pocket of gas along the proximal sigmoid colon is new since prior CT. There is mild adjacent stranding. This suggests a contained perforation in the setting of diverticulitis. A 6.2 x 5.3 cm focus of stool and gas along the inferior asp ect of the mid sigmoid colon is also new since prior CT with mild adjacent stranding. This communicates with the bladder and represents a colovesicular fistula. There is stool and gas within the bladder. Bladder wall thickening is noted. No additional sites of diverticulitis are present. IMPRESSION: 1. Findings consistent with multifocal acute sigmoid diverticulitis. 6.2 x 5.3 cm focus of stool and gas along the mid sigmoid colon suggests a contained perforation containing stool which communicates with the bladder consistent with a colovesicular fistula. Stool and gas within the bladder. 4.5 x 2 cm pocket of extraluminal gas adjacent to the proximal sigmoid colon represents a contained perforation. Mild adjacent stranding. 2. Increased conspicuity of numerous sclerotic skeletal lesions. This could reflect a treatment response or progression of metastatic disease. 3. No change in a small left pleural effusion. 4. No bowel obstruction. Moderate amount of stool within the colon. ACT 112: Negative or not required by law. Electronically signed by: Javon Mueller M.D. 06/19/2022 7:41 PM Hospital Course (1) Colovesical fistula: Pt is a 72 yo female with PMH of GERD, HTN, HLD, RA, and breast cx w/ mets to bone (in current palliative radiation) presenting due to almost one week of fecal matter in her urine. Found to have colovesical fistula, is now day 8 s/p diverting colostomy. Colovesical fistula - CTAP shows acute diverticulitis w/ a colovesical fistula, moderate stool burden in colon w/o obstruction; post op day 8 diverting colostomy w/out complication - urine culture 06/15 grew E. coli ESBL, repeat culture 06/19 grew 3 organisms, probable skin kana - Completed 10 days of Zosyn. Will treat with an addition 4 days of Augmentin for a total course of antibiotics of 14 days. - F/u with surgery as an OP COVID-19 - tested positive for COVID-19 on screening test prior to discharge - Did have a mild cough over the weekend, which has since resolved. Vital signs are stable and lungs CTA B/L. - States she had 2 [employer] COVID-19 vaccinations. - defer paxlovid at this time as she is asymptomatic and it does not have an indication for hospitalized pts. Neoplasm related pain - continue fentanyl patch and oxycodone 10 mg q4hr PRN for breakthrough pain - Over the past 24 hours she received 15mg oxycodone q6 in addition to her fentanyl patch, equal dosing to her home regimen on 10mg q4 prn. Could consider switch her home breakthrough regimen to 15mg q6. Anemia-acute blood loss anemia - Hgb upon admission 9.1. Normocytic. - iron studies show normal iron at 98 w/ high ferritin at 458- aligns w/ anemia of chronic disease - Post operatively her Hgb dropped to 6.2; and she was transfused 3 units - Has been stable at 9 over the last few days Lower leg edema - last echo 10/2021 showed EF of 55-60% w/ normal LV systolic function and mild LVH - Was restarted on home Bumex post operatively Post surgical hypotension- resolved - hypotensive post operatively secondary to drop in hemoglobin; improved post transfusion and has been stable over the past 6 days KAT- resolved - Cr since admission stable around 0.9 range bumped to 1.36 post operatively likely secondary to hypoperfusion - has since returned to baseline Hypertension -olmesartan was held for a period secondary to hypotension and later restarted - HCTZ was stopped during her last admission and held this admission. - Consider restarting as an OP if her blood pressure tolerates it Malignant 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 - follows with [facility] oncology - pt curious about Xgeva injections while hospitalized; she states she is due for it now but her Ca levels were too low - 2500 mg Ca BID supplementation held Moderate obstructive sleep apnea - CPAP 13 cmH20 Anxiety and depression - Continue home duloxetine and lorazepam PRN RA - Continue dexamethasone - Hydroxychloroquine was held secondary to infection; can consider resuming after she completes antibiotic course (2) Diverticulitis: (3) Neoplasm related pain: (4) Malignant 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: (5) Lower extremity edema: (6) Anemia: (7) Hypotension after procedure: Total Time Total Time Spent Total Time Spent (In Minutes): 30 Discharge Plan Discharge Items Patient Disposition: Transfer Intermediate Fac Reason For Visit: colovesicular fistula Discharge Diagnosis: creation of diverting colostomy Activity: Per Instructions section Lifting: No more than 10 pounds Bathing Comment: may shower Non-emergency contact: Primary Care Provider and Surgeon Call non-emergency contact if: you have any medication questions, your symptoms worsen, your pain is not controlled, you have a fever, your temperature is above 101.5, your wound has increased redness, your wound has increased drainage and your wound pain has increased Follow-up/Referrals: Johnnie Villarreal, DO [Surgeon] - (Please call to schedule follow up in clinic within 2 weeks) [facility] [Primary Care Provider] - Diet: Regular Addtl Attending Provider Instructions: Pt is a 72 yo female with PMH of GERD, HTN, HLD, RA, and breast cx w/ mets to bone (in current palliative radiation) presenting due to almost one week of fecal matter in her urine. Found to have colovesical fistula, is now day 8 s/p diverting colostomy. Colovesical fistula - CTAP shows acute diverticulitis w/ a colovesical fistula, moderate stool burden in colon w/o obstruction; post op day 8 diverting colostomy w/out complication - urine culture 06/15 grew E. coli ESBL, repeat culture 06/19 grew 3 organisms, probable skin kana - Completed 10 days of Zosyn. Will treat with an addition 4 days of Augmentin for a total course of antibiotics of 14 days. - F/u with surgery as an OP COVID-19 - tested positive for COVID-19 on screening test prior to discharge - Did have a mild cough over the weekend, which has since resolved. Vital signs are stable and lungs CTA B/L. - States she had 2 J&J COVID-19 vaccinations. - defer paxlovid at this time as she is asymptomatic and it does not have an indication for hospitalized pts. Neoplasm related pain - continue fentanyl patch and oxycodone 10 mg q4hr PRN for breakthrough pain - Over the past 24 hours she received 15mg oxycodone q6 in addition to her fentanyl patch, equal dosing to her home regimen on 10mg q4 prn. Could consider switch her home breakthrough regimen to 15mg q6. Anemia-acute blood loss anemia - Hgb upon admission 9.1. Normocytic. - iron studies show normal iron at 98 w/ high ferritin at 458- aligns w/ anemia of chronic disease - Post operatively her Hgb dropped to 6.2; and she was transfused 3 units - Has been stable at 9 over the last few days Lower leg edema - last echo 10/2021 showed EF of 55-60% w/ normal LV systolic function and mild LVH - Was restarted on home Bumex post operatively Post surgical hypotension- resolved - hypotensive post operatively secondary to drop in hemoglobin; improved post transfusion and has been stable over the past 6 days KAT- resolved - Cr since admission stable around 0.9 range bumped to 1.36 post operatively likely secondary to hypoperfusion - has since returned to baseline Hypertension -olmesartan was held for a period secondary to hypotension and later restarted - HCTZ was stopped during her last admission and held this admission. - Consider restarting as an OP if her blood pressure tolerates it Malignant 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 - follows with [facility] oncology - pt curious about Xgeva injections while hospitalized; she states she is due for it now but her Ca levels were too low - 2500 mg Ca BID supplementation held Moderate obstructive sleep apnea - CPAP 13 cmH20 Anxiety and depression - Continue home duloxetine and lorazepam PRN RA - Continue dexamethasone - Hydroxychloroquine was held secondary to infection; can consider resuming after she completes antibiotic course Addtl Technical Training Instructor Provider Instructions: Surgery: Please care for your ostomy as instructed in the hospital. Use 2 3/4" wafer and pouch. Change as needed for leaks. Otherwise change weekly and as needed Pending Studies at Discharge: No Stand-Alone Forms: My [facility] Skilled Items Patient informed of condition?: Yes DNR: Yes Discharge Level of Care: Skilled Communicable Disease: Yes (COVID-19 ) Discharge Prognosis: Stable Lines: None Urinary Catheter: No Medications and DC Order Prescriptions: Continued calcium carbonate [Calcium 600] 600 mg calcium (1,500 mg) tablet 1,200 mg PO BID Rx Instructions: TAKES 0830 & 1630 dexamethasone 4 mg tablet 4 mg PO DAILY (DME) Lift chair See Rx Instructions .Route .MEDSUPPLY Qty: 1 0RF Rx Instructions: As directed duloxetine 60 mg capsule,delayed release(DR/EC) 60 mg PO DAILY Qty: 90 3RF lidocaine 4 % adhesive patch,medicated 1 patch topical DAILY Rx Instructions: APPLY IN AM, REMOVE QPM. polyethylene glycol 3350 [Miralax] 17 gram/dose powder 17 g PO DAILY (DME) CPAP Machine [facility] See Rx Instructions .MEDSUPPLY Qty: 1 0RF Rx Instructions: CPAP 13 cm water pressure, c flex setting #2 with heated humidification, tubing, and supplies. ALTAGRACIA: 99+ years. atorvastatin 10 mg tablet 10 mg PO DAILY Qty: 90 3RF cholecalciferol (vitamin D3) 5,000 unit Capsule 5,000 unit PO QDL multivitamin with minerals tablet 1 tab PO QDL olmesartan 20 mg Tablet 20 mg PO DAILY Qty: 30 0RF Rx Instructions: HOLD FOR SBP < 100 fentanyl 50 mcg/hr Patch 72 Hour 50 mcg transdermal Q3D Qty: 5 0RF gabapentin 300 mg capsule 300 mg PO BID Qty: 60 0RF Rx Instructions: TAKES 0830 & 1630 magnesium oxide 400 mg magnesium Tablet 400 mg PO DAILY PRN (Reason: LEG CRAMPS) allopurinol 100 mg tablet 100 mg PO QAM acetaminophen [Tylenol] 325 mg Tablet 650 mg PO Q6H PRN (Reason: PAIN/FEVER) ondansetron HCl 4 mg Tablet 4 mg PO Q4H PRN (Reason: NAUSEA/VOMITING) prochlorperazine maleate 10 mg Tablet 10 mg PO Q4H PRN (Reason: NAUSEA/VOMITING) phenazopyridine [Pyridium] 100 mg Tablet 100 mg PO TID Rx Instructions: STARTED 06/19/22 FOR 3 DAYS. bisacodyl 5 mg Tablet,Delayed Release (Dr/Ec) 10 mg PO QAM nystatin 100,000 unit/gram Powder 1 applic TOPICAL BID Rx Instructions: STARTED 06/18/22 FOR 2 WEEKS, APPLY TO RASH IN ABD FOLDS. alum-mag hydroxide-simeth [Maalox Maximum Strength] 400-400-40 mg/5 mL Suspension 30 ml PO Q4H PRN (Reason: Nausea) menthol-zinc oxide [Calmoseptine] 0.44-20.6 % Ointment 1 applic TOPICAL TID Rx Instructions: APPLY TO LEFT BUTTOCK & LEFT GROIN AREAS. potassium chloride 20 mEq Tablet Extended Release 20 meq PO BID Rx Instructions: TAKES AT 0830 & 1630 bumetanide 2 mg tablet 2 mg PO QAM lorazepam 0.5 mg tablet 0.5 mg PO Q12H PRN (Reason: Anxiety) omeprazole 20 mg tablet,delayed release (DR/EC) 20 mg PO BID Rx Instructions: TAKES 0860 & 1630 oxycodone 5 mg tablet 10 mg PO Q4H PRN (Reason: PAIN--MOD-SEVERE) amoxicillin-pot clavulanate 875-125 mg Tablet 1 tab PO BID 4 Days Qty: 8 0RF Rx Instructions: STARTED 06/17/22 FOR 7 DAYS. TAKES AT 0830 & 1630. Discontinued hydroxychloroquine [Plaquenil] 200 mg tablet 200 mg PO BID hydrochlorothiazide 25 mg Tablet 25 mg PO QAM oxycodone [OxyContin] 30 mg Tablet,Oral Only,Ext.Rel.12 Hr 30 mg PO Q12H Discharge Orders: Discharge Order (Routine); Ordered 06/29/22 Ordered By: Aleta Chavez/Other Patient Handouts: Colostomy: Changing Your Pouch, Ostomy Care: Emptying Your Pouch, What Is a Colostomy?, Colostomy: Caring for Your Stoma, Colostomy: Managing Your Nutrition Admission Data Admit Date/Time: 06/19/22 21:10 Attending Provider: Hira Lewis Admit Provider: Shine Temple Primary Care Provider: Sosa Ramirez Other Providers: Sosa Ramirez ; Shine Temple ; Johnnie Villarreal Other Interventions: Discharge Summary Assessment (RN) Last Done: 06/29/22 13:55 Resident Activity Tracking Resident Involvement: Resident Care Provided Care Provided: Adult Hospital Medicine
--- NOTE | 2022-07-04 10:00 | Coding Query ---
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 Please assist us with the question(s) below: Please clarify the meaning of KAT. KAT is not a valid abbreviation. Thank you. (x ) Acute Kidney Injury ( ) Acute Kidney Insufficiency ( ) Other (Specify): Principal Diagnosis: "that condition established after study, to be chiefly responsible for occasioning the admission of the patient to the hospital for care." Co-Existing Principal Diagnosis: "when two or more diagnoses equally meet the criteria for principal diagnosis as determined by the circumstances of admission, diagnostic work up, and/or therapy provided, and the Alphabetic Index, Tabular List, or another coding guideline does not provide sequencing direction, any one of the diagnoses may be sequenced first." "When the physician has documented what appears to be a current diagnosis in the body of the record, but has not included the diagnosis in the final diagnostic statement, the physician should be asked whether the diagnosis should be added." (Source Coding [facility] 2 QTR90. p3-4) ARISTEO
== END 2022-06-29 16:59 | DRG 982 ==
LOC: ED 17:55 → SUATTDRO 21:10 → 3E 21:10

== ENCOUNTER 2022-07-16 17:16 | Inpatient (IN) ==
[2022-07-16] MEDS ORDERED: SODIUM CHLORIDE 0.9% 1000ML 2,000 ML IV ONE (18:17)
[2022-07-16] MEDS ORDERED: ERTAPENEM SODIUM 10 ML IV STA (18:18)
[2022-07-16 18:19] LABS: Hematocrit (blood only) 29.6 % (34.1-44.9); Hemoglobin 9.7 g/dl (12.0-16.0); Mean Corpuscular Hemoglobin 32.1 pg (25.0-34.0); Mean Corpuscular Hgb Conc 32.8 g/dL (32.0-36.0); Mean Platelet Volume 9.2 fL (9.4-12.3); Nucleated RBC # (auto) 0.06 K/uL (0-0); Nucleated RBC % (auto) 1.4 %; Platelet Count 134 K/uL (130-400); RDW Coefficient of Variation 17.2 % (11.5-14.5); RDW Standard Deviation 60.5 fL (36.4-46.3); Red Blood Count 3.02 M/uL (3.93-5.22); White Blood Count 4.29 K/ul (4.8-10.8)
[2022-07-16 18:36] LABS: Basophils # (auto) 0.01 K/uL (0-0.2); Basophils % (auto) 0.2 %; Immature Granulocytes # (auto) 0.03 K/uL (0.00-0.02); Immature Granulocytes % (auto) 0.7 %; Lymphocytes # (auto) 0.04 K/uL (1.2-3.4); Lymphocytes % (auto) 0.9 %; Monocytes # (auto) 0.06 K/uL (0.24-0.82); Monocytes % (auto) 1.4 %; Neutrophils # (auto) 4.15 K/uL (1.4-6.5); Neutrophils % (auto) 96.8 %
[2022-07-16 18:39] LABS: Base Excess VBG 6.5 mEq/L; HCO3 VBG 35 mmol/L; Oxygen Saturation VBG < 60.0 %; PCO2 VBG 64 mmHg (38-50); PO2 VBG 29 mmHg; pH VBG 7.34 (7.36-7.41)
[2022-07-16 18:43] LABS: Albumin Level 3.2 gm/dl (3.4-5.0); BUN Creatinine Ratio 21.4 (10-20); Bilirubin Direct 0.2 mg/dl (0-0.2); Bilirubin,Total 0.7 mg/dl (0.2-1.0); Calcium 7.8 mg/dl (8.5-10.1); Creatinine Clr Calc Pharmacy 24.5 ml/min; Est GFR (African American) 21.4 ml/min; Est GFR (Non-African American) 18.5 ml/min; Magnesium 2.4 mg/dl (1.7-2.4); Potassium 4.8 mmol/L (3.5-5.1); Total Protein 5.8 gm/dl (6.0-8.3)
[2022-07-16 18:46] LABS: Troponin I High Sensitivity 16.7 pg/ml (0-14)
[2022-07-16 18:50] LABS: Partial Thromboplastin Ratio 0.8; Partial Thromboplastin Time 23.1 Seconds (21.0-31.0); Prothrombin Time 10.7 Seconds (9.0-12.0)
--- NOTE | 2022-07-16 19:16 | XRay Report ---
SINGLE VIEW CHEST CLINICAL HISTORY: Dyspnea. FINDINGS: An AP, portable, upright chest radiograph is compared to study dated 01/22/2022 and correlat ed with chest CT dated 04/20/2022. The examination is degraded by portable technique and apical lordot ic positioning. A right subclavian central venous infusion port is unchanged in position. There is a large hiatal hernia. The heart is enlarged noting atherosclerotic calcification of the thoracic aorta . The pulmonary vasculature is noncongested. Atelectasis is noted at the left lung base. No airspace consolidation or large pleural effusion is identified. No pneumothorax is seen. The skeletal structur es are osteopenic. The bony thorax is grossly intact. Arthritic change is seen in the shoulders. IMPRESSION: Cardiomegaly with no acute cardiopulmonary abnormality identified. ACT 112: Negative or not required by law. Electronically signed by: Trung Marques M.D. 07/16/2022 7:14 PM
--- NOTE | 2022-07-16 19:36 | CT Scan Report ---
CT SCAN OF THE BRAIN WITHOUT IV CONTRAST CLINICAL HISTORY: Change in mental status. COMPARISON STUDY: MRI of the brain dated 03/23/2022. TECHNIQUE: Unenhanced axial CT scan of the brain is performed from the vertex to the skull base. A do se lowering technique was utilized adhering to the principles of ALARA. CT DOSE: 884.08 mGy.cm FINDINGS: Brain parenchyma: There is age-related involutional change noting moderate subcortical and periventri cular microangiopathic disease. There is no hemorrhage, mass effect, or evidence of acute territorial ischemia by CT criteria. Gregory-white matter differentiation is preserved. No extra-axial fluid collec tion is seen. Ventricles, sulci, cisterns: Prominent secondary to involutional change. Intracranial vasculature: There is atherosclerotic calcification of the cavernous carotid and vertebr al arteries. Calvarium: Unremarkable. Sinuses and mastoids: The paranasal sinuses are clear. The mastoid air cells are well pneumatized. Orbits: The bony orbits are grossly intact. IMPRESSION: There is no hemorrhage, mass effect, or evidence of acute territorial ischemia by CT sp hussein. ACT 112: Negative or not required by law. Electronically signed by: Trung Marques M.D. 07/16/2022 7:32 PM
--- NOTE | 2022-07-16 19:42 | Emergency Department Note ---
History of Present Illness General Chief complaint: Lethargic Stated complaint: DECREASED LOC, HYPOXIA, COLOSTOMY ISSUES Time Seen by Provider: 07/16/22 18:03 Source: family, EMS and RN notes reviewed History of Present Illness Provider complaint: Altered mental status Maximum Pain Intensity: 5 72-year-old female presents from [facility] for altered mental status. Per EMS the patient is usually alert and oriented x3 conversing and is able to help her can complete her daily activities. EMS and family present at the bedside stated that the patient has been increasingly confused today. Family states that she had chemo treatment yesterday for cancer. They also noted that urine was coming out of the patient's colostomy bag. Patient has a history of a fistula repair done by Dr. Villarreal and recently saw Dr. Villarreal for evaluation of her colostomy which appeared to be well per the family. Home Medications Medication Instructions Recorded Confirmed Type cholecalciferol (vitamin D3) 125 5,000 unit PO QDL 04/25/18 07/16/22 History mcg (5,000 unit) capsule Lift chair #1 ea 08/22/20 04/28/22 Rx magnesium oxide 400 mg PO DAILY 10/27/20 07/16/22 History duloxetine 60 mg capsule,delayed 60 mg PO DAILY #90 caps 07/07/21 07/16/22 Rx release calcium carbonate 600 mg calcium 1,200 mg PO BID 08/28/21 07/16/22 History (1,500 mg) tablet (Calcium) CPAP Machine #1 ea 09/08/21 04/28/22 Rx atorvastatin 10 mg tablet 10 mg PO DAILY #90 tabs 09/15/21 07/16/22 Rx allopurinol 100 mg tablet 100 mg PO QAM 03/23/22 07/16/22 History dexamethasone 4 mg tablet 4 mg PO DAILY 04/27/22 07/16/22 History lidocaine 4 % topical patch 1 patch topical DAILY 04/28/22 07/16/22 History polyethylene glycol 3350 17 17 g PO BID 04/28/22 07/16/22 History gram/dose oral powder (Miralax) fentanyl 50 mcg/hr transdermal 50 mcg transdermal Q3D #5 ea 06/01/22 07/16/22 Rx patch gabapentin 300 mg capsule 300 mg PO BID #60 caps 06/01/22 07/16/22 Rx olmesartan 20 mg tablet 20 mg PO DAILY #30 tabs 06/01/22 07/16/22 Rx acetaminophen 325 mg tablet 650 mg PO Q6H PRN PAIN/FEVER 06/19/22 07/16/22 History (Tylenol) aluminum-mag hydroxide-simethicone 30 ml PO Q4H PRN Nausea 06/19/22 07/16/22 History 400 mg-400 mg-40 mg/5 mL oral susp (Maalox Maximum Strength) bisacodyl 5 mg tablet,delayed 10 mg PO QAM 06/19/22 07/16/22 History release bumetanide 2 mg tablet 2 mg PO BID 06/19/22 07/16/22 History lorazepam 0.5 mg tablet 0.5 mg PO Q12H 06/19/22 07/16/22 History menthol 0.44 %-zinc oxide 20.6 % 1 applic topical QS 06/19/22 07/16/22 History topical ointment (Calmoseptine) omeprazole 20 mg tablet,delayed 20 mg PO BID 06/19/22 07/16/22 History release ondansetron HCl 4 mg tablet 4 mg PO Q4H PRN NAUSEA/VOMITING 06/19/22 07/16/22 History potassium chloride 20 mEq 20 meq PO BID 06/19/22 07/16/22 History tablet,extended release prochlorperazine maleate 10 mg 10 mg PO Q4H PRN NAUSEA/VOMITING 06/19/22 07/16/22 History tablet metolazone 2.5 mg tablet 2.5 mg PO DAILY 07/16/22 07/16/22 History multivitamin 1 tab PO DAILY 07/16/22 07/16/22 History ondansetron HCl 8 mg tablet 8 mg PO . EVERY 24 HOURS PRN 07/16/22 07/16/22 History prevent nausea from chemo oxycodone 10 mg tablet 10 mg PO Q4 PRN Pain 07/16/22 07/16/22 History oxycodone 30 mg tablet,crush 30 mg PO Q12H 07/16/22 07/16/22 History resistant,extended release 12 hr Allergies Allergy/AdvReac Type Severity Reaction Status Date / Time No Known Allergies Allergy Verified 07/16/22 21:47 Past Med/Surg History Medical History Claudication of both lower extremities Depression GERD (gastroesophageal reflux disease) controlled Hiatal hernia Hyperlipidemia Hypertension Inflammatory polyarthritis Malignant neoplasm of upper-inner quadrant of left breast in female, estrogen receptor negative (04/24/19) Nocturnal hypoxemia Obesity, morbid, BMI 40.0-49.9 Palliative care encounter Rheumatoid arthritis on Plaquenil/prednisone 5mg daily chronic (mostly affects spine/hip/knee locations, no cervical issues) Spinal stenosis, lumbar region with neurogenic claudication Surgical History Difficult airway for intubation WITH BREAST SURGERY 05/2019 [facility] H/O abdominal surgery (06/21/22) Laparoscopic Assisted Diverting Colostomy(Not Applicable) - Johnnie Villarreal DO History of cholecystectomy History of colonoscopy History of esophagogastroduodenoscopy (EGD) History of lumpectomy of left breast partial History of open reduction and internal fixation (ORIF) procedure right wrist History of tonsillectomy and adenoidectomy History of total abdominal hysterectomy and bilateral salpingo-oophorectomy History of total hip arthroplasty RIGHT 10/2020 History of vascular access device present right chest Status post right foot surgery Family History Mother , age 77 CHF Family history of diabetes mellitus Hypertension Family history of cardiac disorder Diabetes type 2 Deep vein thrombosis Brother , age 49 colon cancer Family hx of colon cancer Colorectal cancer Grandfather Family hx of colon cancer PATERNAL Father , age 60 cardiac arrest Family history of cardiac disorder Myocardial infarction Sister Family history of malignant neoplasm Breast cancer, Onset Age: 50 Son Allergic rhinitis Coronary heart disease Son No problems noted. 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 [employer] How many Children do You have: 3 Feels Safe at Home: Yes Childhood Exposure to Second-Hand Smoke: Yes Diet Comment: low sodium caffeine: Yes during the past year weight has: other Dental Care, Regularly: Yes Physical Activity Frequency: 1-2 Times per Week Seatbelt Use: always Sunscreen Use: Yes (sometimes) Assistive Devices: Walker and Wheelchair Review of Systems Unobtainable due to cognitive status Physical Exam Vital Signs Vital Signs - 24 hr 07/16/22 17:29 07/16/22 17:42 07/16/22 17:50 Temperature 37.0 C Temperature Source Oral Pulse Rate 94 H 90 92 H Pulse Rate from SpO2 Sensor 89 92 H Respiratory Rate 8 L 17 16 Respiratory Effort / Characteristics Spontaneous Accessory Muscle Use Grunting Respiratory Depth Retractive Blood Pressure 125/74 Blood Pressure Mean 91 Pulse Oximetry 77 L 95 95 Oxygen Delivery Method Room Air Oxygen Flow Rate Sepsis Recent Fever Within 48 Hours No Sepsis New/Unexplained Change in Mental Status N/A Sepsis Action Taken by Nursing No Action Required 07/16/22 18:00 07/16/22 18:04 07/16/22 18:04 Temperature Temperature Source Pulse Rate 92 H 92 H Pulse Rate from SpO2 Sensor 89 Respiratory Rate 17 17 Respiratory Effort / Characteristics Respiratory Depth Blood Pressure 56/43 L Blood Pressure Mean 47 Pulse Oximetry 68 L Oxygen Delivery Method Oxygen Flow Rate Sepsis Recent Fever Within 48 Hours Sepsis New/Unexplained Change in Mental Status Sepsis Action Taken by Nursing 07/16/22 18:10 07/16/22 18:14 07/16/22 18:14 Temperature Temperature Source Pulse Rate 92 H 94 H Pulse Rate from SpO2 Sensor 94 H 95 H Respiratory Rate 10 L 17 Respiratory Effort / Characteristics Respiratory Depth Blood Pressure 58/49 L Blood Pressure Mean 52 Pulse Oximetry 100 99 Oxygen Delivery Method Oxygen Flow Rate Sepsis Recent Fever Within 48 Hours Sepsis New/Unexplained Change in Mental Status Sepsis Action Taken by Nursing 07/16/22 18:16 07/16/22 18:16 07/16/22 18:20 Temperature Temperature Source Pulse Rate 93 H 91 H Pulse Rate from SpO2 Sensor 93 H 91 H Respiratory Rate 18 21 Respiratory Effort / Characteristics Respiratory Depth Blood Pressure 40/32 L Blood Pressure Mean 34 Pulse Oximetry 100 99 Oxygen Delivery Method Oxygen Flow Rate Sepsis Recent Fever Within 48 Hours Sepsis New/Unexplained Change in Mental Status Sepsis Action Taken by Nursing 07/16/22 18:29 07/16/22 18:29 07/16/22 18:30 Temperature Temperature Source Pulse Rate 91 H Pulse Rate from SpO2 Sensor 91 H Respiratory Rate 22 Respiratory Effort / Characteristics Respiratory Depth Blood Pressure 68/52 L 82/50 L Blood Pressure Mean 57 60 Pulse Oximetry 97 Oxygen Delivery Method Oxygen Flow Rate Sepsis Recent Fever Within 48 Hours Sepsis New/Unexplained Change in Mental Status Sepsis Action Taken by Nursing 07/16/22 18:30 07/16/22 18:35 07/16/22 18:35 Temperature Temperature Source Pulse Rate 91 H 89 Pulse Rate from SpO2 Sensor 91 H 89 Respiratory Rate 19 18 Respiratory Effort / Characteristics Respiratory Depth Blood Pressure 84/53 L Blood Pressure Mean 63 Pulse Oximetry 92 100 Oxygen Delivery Method Oxygen Flow Rate Sepsis Recent Fever Within 48 Hours Sepsis New/Unexplained Change in Mental Status Sepsis Action Taken by Nursing 07/16/22 18:40 07/16/22 18:40 07/16/22 18:45 Temperature Temperature Source Pulse Rate 89 88 Pulse Rate from SpO2 Sensor 89 Respiratory Rate 16 17 Respiratory Effort / Characteristics Respiratory Depth Blood Pressure 78/60 L 104/55 L Blood Pressure Mean 66 71 Pulse Oximetry 98 98 Oxygen Delivery Method Nasal Cannula Oxygen Flow Rate 4 Sepsis Recent Fever Within 48 Hours Sepsis New/Unexplained Change in Mental Status Sepsis Action Taken by Nursing 07/16/22 18:51 07/16/22 19:00 07/16/22 19:49 Temperature Temperature Source Pulse Rate 84 86 Pulse Rate from SpO2 Sensor Respiratory Rate 16 16 Respiratory Effort / Characteristics Respiratory Depth Blood Pressure 92/58 L 93/60 L Blood Pressure Mean 69 71 Pulse Oximetry 96 96 100 Oxygen Delivery Method Room Air Nasal Cannula Nasal Cannula Oxygen Flow Rate 4 4 4 Sepsis Recent Fever Within 48 Hours Sepsis New/Unexplained Change in Mental Status Sepsis Action Taken by Nursing 07/16/22 19:07 07/16/22 19:16 07/16/22 19:40 Temperature Temperature Source Pulse Rate 86 83 85 Pulse Rate from SpO2 Sensor Respiratory Rate 14 13 18 Respiratory Effort / Characteristics Respiratory Depth Blood Pressure 114/95 70/57 L 82/50 L Blood Pressure Mean 101 61 60 Pulse Oximetry 98 99 98 Oxygen Delivery Method Nasal Cannula Nasal Cannula Nasal Cannula Oxygen Flow Rate 4 4 4 Sepsis Recent Fever Within 48 Hours Sepsis New/Unexplained Change in Mental Status Sepsis Action Taken by Nursing 07/16/22 20:30 07/16/22 20:45 07/16/22 21:01 Temperature Temperature Source Pulse Rate 89 84 88 Pulse Rate from SpO2 Sensor Respiratory Rate 14 16 19 Respiratory Effort / Characteristics Respiratory Depth Blood Pressure 103/84 77/65 L 60/34 L Blood Pressure Mean 90 69 42 Pulse Oximetry 96 96 96 Oxygen Delivery Method Nasal Cannula Nasal Cannula Nasal Cannula Oxygen Flow Rate 4 4 4 Sepsis Recent Fever Within 48 Hours Sepsis New/Unexplained Change in Mental Status Sepsis Action Taken by Nursing Physical Exam GENERAL: Patient is extremely ill-appearing. HENT: Exam performed. -Head: Normocephalic and atraumatic. NECK: No JVD present. CV: Normal rate, regular rhythm, normal heart sounds and intact distal pulses. Palpable radial pulses bue. PULM/CHEST: Effort normal and breath sounds normal. No respiratory distress. No stridor. She has no wheezes. She has no rales. -Chest Wall: Mediport in place. ABD: The abdomen is soft. Colostomy in place. MUSC/SKEL: 3+ pitting edema of the bilateral lower extremities. NEURO: GCS eye subscore is 2. GCS verbal subscore is 2. GCS motor subscore is 5. Course Course 180: The patient was evaluated in room C6. A complete history and physical exam was performed Cardiac monitoring: An order was placed for continuous cardiac monitoring. The monitor shows a rate of 90 with sinus rhythm On arrival in the room the patient was hypoxic on room air down into the 70s. Patient does not usually wear oxygen. Supplemental oxygen was applied via nasal cannula which improved the patient oxygen saturation. Patient was also hypotensive approximately 50/30. 2 L IV fluid was mainly ordered for the patient sepsis protocols were initiated. I had a discussion with the family at bedside who confirmed that the patient is DNR/DNI and do not want heroic measures performed on the patient including but not limited to chest compressions, defibrillation/cardioversions, and intubation however they are okay with the patient getting IV fluids, IV antibiotics, and vasopressors. EMR was reviewed and the patient has a history of ESBL. Patient will be empirically treated with ertapenem as Rivera catheter was placed and her urine looked very cloudy and had a foul order to it. 1840: Patient's blood pressure is improving now 80s over 40s. Family does state that the patient's blood pressure has been running low lately. Now that the patient's blood pressure has improved the patient is mentating better and now can recognize her family at bedside. 1900: Patient's blood pressure improved, patient taken to CT scan. 1949: Blood pressure stable. Patient positive for COVID-19. Given the patien t's hypoxia and COVID-positive, Decadron 6 mg IV push ordered for the patient. 2014: Patient becoming hypotensive again. Third liter of IV fluids ordered for the patient. Patient be started on Levophed drip given her continued hypotension. Labs show a white blood cell count of 4.29. Hemoglobin 9.7. Platelet count 134. VBG within normal limits. Creatinine 2.48 this is up from patient's baseline of approximately 1. High-sensitivity troponin 16.7. Lactic acid within normal limits. Procalcitonin negative. CT of the head within normal limits. Chest x-ray shows no infiltrate or cephalization but does show cardiomegaly. CT of the abdomen which was completed without contrast given the patient's renal function showed no acute infectious or inflammatory findings. 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 Discussed the case with Dr. Collins [facility] [address] hospitalist will evaluate the patient and admit her to his service. 2024: Nursing reported the patient's blood pressure is improving with IV fluids blood pressure now 103/84. IV fluids will be continued and Levophed will be discontinued. 2107: Patient becoming hypotensive again. Levophed will be started. Patient be admitted to ICU under Dr. Collins service. Administered Medications Norepinephrine Bitartrate (Levophed/D5w) 4 mg in 250 mls @ 20.569 mls/hr IV .[id number] [facility]; Protocol Stop: 08/15/22 20:14 Last Admin: 07/16/22 20:57 Dose: 0.05 mcg/kg/min, 20.6 mls/hr Documented By: JACQUELIN Co-signed By: [facility] Discontinued Medications Dexamethasone Sodium Phosphate (DexamethasonePf 10 Mg/Ml Vial) 6 mg IV NOW ONE Stop: 07/16/22 19:50 Last Admin: 07/16/22 20:09 Dose: 6 mg Documented By: JACQUELIN Sodium Chloride (Nss 1000ml) 2,000 mls @ 999 mls/hr IV .Q2H1M ONE Stop: 07/16/22 20:17 Last Infusion: 07/16/22 21:06 Dose: 0 mls/hr Documented By: Admin: 07/16/22 19:03 Dose: 999 mls/hr Documented By: PREMA Ertapenem (Invanz) 10 mls @ 2 mls/min IV NOW STA Stop: 07/16/22 18:22 Last Admin: 07/16/22 19:03 Dose: 2 mls/min Documented By: PREMA Miscellaneous (Stat Iv Infusion Titration Per Protocol) 1 each N/A NOW STA Stop: 07/16/22 20:16 Last Admin: 07/16/22 21:06 Dose: Not Given Documented By: JACQUELIN Critical Care Time Critical Care Time: Yes Total Critical Care Time: 120 I have personally spent greater than 120 minutes of critical care time in the direct management of this patient. This includes bedside care, interpretation of diagnostic studies, and testing, discussion with consultants, patient, and family members, and other required patient management activities. This 120 minutes is in excess of all separately billable procedures. Medical Decision Making Laboratory Data Result diagrams: 07/16/22 18:08 07/16/22 18:08 Lab Results 07/16/22 07/16/22 07/16/22 Range/Units 18:08 18:08 18:08 WBC 4.29 L (4.8-10.8) K/ul RBC 3.02 L (3.93-5.22) M/uL Hgb 9.7 L (12.0-16.0) g/dl Hct 29.6 L (34.1-44.9) % MCV 98.0 (80.0-100.0) fL MCH 32.1 (25.0-34.0) pg MCHC 32.8 (32.0-36.0) g/dL RDW Std Deviation 60.5 H (36.4-46.3) fL RDW Coeff of [place] 17.2 H (11.5-14.5) % Plt Count 134 (130-400) K/uL MPV 9.2 L (9.4-12.3) fL Immature Gran % (Auto) 0.7 % Neut % (Auto) 96.8 % Lymph % (Auto) 0.9 % [place] % (Auto) 1.4 % Eos % (Auto) 0.0 % Baso % (Auto) 0.2 % Neut # (Auto) 4.15 (1.4-6.5) K/uL Lymph # (Auto) 0.04 L (1.2-3.4) K/uL [place] # (Auto) 0.06 L (0.24-0.82) K/uL Eos # (Auto) 0.00 (0-0.50) K/uL Baso # (Auto) 0.01 (0-0.2) K/uL Immature Gran # (Auto) 0.03 H (0.00-0.02) K/uL Absolute Nucleated RBC 0.06 H (0-0) K/uL Nucleated RBC % (auto) 1.4 % PT 10.7 (9.0-12.0) Seconds INR 1.0 (0.9-1.1) APTT 23.1 (21.0-31.0) Seconds PTT Ratio 0.8 VBG pH (7.36-7.41) VBG pCO2 (38-50) mmHg VBG pO2 mmHg VBG HCO3 mmol/L VBG O2 Saturation % VBG Base Excess mEq/L Sodium 137 (136-145) mmol/L Potassium 4.8 (3.5-5.1) mmol/L Chloride 97 L (98-107) mmol/L Carbon Dioxide 31 (21-32) mmol/L Anion Gap 9 (3-11) BUN 53 H (6-23) mg/dl Creatinine 2.48 H (0.6-1.2) mg/dl Est Cr Clr Drug Dosing 24.5 ml/min Est GFR ( Amer) 21.4 ml/min Est GFR (Non-Af Amer) 18.5 ml/min BUN/Creatinine Ratio 21.4 H (10-20) Glucose 178 H (70-99(Fasting)) mg/dl Lactate (0.4-2.0) mmol/L Calcium 7.8 L (8.5-10.1) mg/dl Magnesium 2.4 (1.7-2.4) mg/dl Total Bilirubin 0.7 (0.2-1.0) mg/dl Direct Bilirubin 0.2 (0-0.2) mg/dl AST 19 (13-39) U/L ALT 25 (7-52) U/L Alkaline Phosphatase 101 (34-104) U/L Troponin I High Sens (0-14) pg/ml B-Natriuretic Peptide (0-100) pg/ml Total Protein 5.8 L (6.0-8.3) gm/dl Albumin 3.2 L (3.4-5.0) gm/dl Lipase (11-82) U/L Procalcitonin (0-0.5) ng/ml Random Cortisol mcg/dl Urine Color Urine Appearance (Clear) Urine pH (4.5-7.5) Ur Specific [place] (1.000-1.030) Urine Protein (Negative) Urine Glucose (UA) (Negative) Urine Ketones (Negative) Urine Blood (Negative) Urine Nitrite (Negative) Urine Bilirubin (Negative) Urine Urobilinogen (Negative) Ur Leukocyte Esterase (Negative) Urine WBC (Auto) (0-5) /hpf Urine RBC (Auto) (0-4) /hpf U Hyaline Cast (Auto) (0-5) /lpf U Epithel Cells (Auto) (0-5) /lpf Urine Bacteria (Auto) (Negative) Urine Yeast (None Prsent) SARS-CoV-2 (PCR) (Negative) Influenza Type A (PCR) (Neg) Influenza Type B (PCR) (Neg) RSV (RT-PCR) (Neg) 07/16/22 07/16/22 07/16/22 Range/Units 18:08 18:08 18:08 WBC (4.8-10.8) K/ul RBC (3.93-5.22) M/uL Hgb (12.0-16.0) g/dl Hct (34.1-44.9) % MCV (80.0-100.0) fL MCH (25.0-34.0) pg MCHC (32.0-36.0) g/dL RDW Std Deviation (36.4-46.3) fL RDW Coeff of [place] (11.5-14.5) % Plt Count (130-400) K/uL MPV (9.4-12.3) fL Immature Gran % (Auto) % Neut % (Auto) % Lymph % (Auto) % [place] % (Auto) % Eos % (Auto) % Baso % (Auto) % Neut # (Auto) (1.4-6.5) K/uL Lymph # (Auto) (1.2-3.4) K/uL [place] # (Auto) (0.24-0.82) K/uL Eos # (Auto) (0-0.50) K/uL Baso # (Auto) (0-0.2) K/uL Immature Gran # (Auto) (0.00-0.02) K/uL Absolute Nucleated RBC (0-0) K/uL Nucleated RBC % (auto) % PT (9.0-12.0) Seconds INR (0.9-1.1) APTT (21.0-31.0) Seconds PTT Ratio VBG pH (7.36-7.41) VBG pCO2 (38-50) mmHg VBG pO2 mmHg VBG HCO3 mmol/L VBG O2 Saturation % VBG Base Excess mEq/L Sodium (136-145) mmol/L Potassium (3.5-5.1) mmol/L Chloride (98-107) mmol/L Carbon Dioxide (21-32) mmol/L Anion Gap (3-11) BUN (6-23) mg/dl Creatinine (0.6-1.2) mg/dl Est Cr Clr Drug Dosing ml/min Est GFR ( Amer) ml/min Est GFR (Non-Af Amer) ml/min BUN/Creatinine Ratio (10-20) Glucose (70-99(Fasting)) mg/dl Lactate (0.4-2.0) mmol/L Calcium (8.5-10.1) mg/dl Magnesium (1.7-2.4) mg/dl Total Bilirubin (0.2-1.0) mg/dl Direct Bilirubin (0-0.2) mg/dl AST (13-39) U/L ALT (7-52) U/L Alkaline Phosphatase (34-104) U/L Troponin I High Sens 16.7 H (0-14) pg/ml B-Natriuretic Peptide (0-100) pg/ml Total Protein (6.0-8.3) gm/dl Albumin (3.4-5.0) gm/dl Lipase 12 (11-82) U/L Procalcitonin 0.33 (0-0.5) ng/ml Random Cortisol 3.23 mcg/dl Urine Color Urine Appearance (Clear) Urine pH (4.5-7.5) Ur Specific [place] (1.000-1.030) Urine Protein (Negative) Urine Glucose (UA) (Negative) Urine Ketones (Negative) Urine Blood (Negative) Urine Nitrite (Negative) Urine Bilirubin (Negative) Urine Urobilinogen (Negative) Ur Leukocyte Esterase (Negative) Urine WBC (Auto) (0-5) /hpf Urine RBC (Auto) (0-4) /hpf U Hyaline Cast (Auto) (0-5) /lpf U Epithel Cells (Auto) (0-5) /lpf Urine Bacteria (Auto) (Negative) Urine Yeast (None Prsent) SARS-CoV-2 (PCR) (Negative) Influenza Type A (PCR) (Neg) Influenza Type B (PCR) (Neg) RSV (RT-PCR) (Neg) 07/16/22 07/16/22 07/16/22 Range/Units 18:15 18:22 18:25 WBC (4.8-10.8) K/ul RBC (3.93-5.22) M/uL Hgb (12.0-16.0) g/dl Hct (34.1-44.9) % MCV (80.0-100.0) fL MCH (25.0-34.0) pg MCHC (32.0-36.0) g/dL RDW Std Deviation (36.4-46.3) fL RDW Coeff of [place] (11.5-14.5) % Plt Count (130-400) K/uL MPV (9.4-12.3) fL Immature Gran % (Auto) % Neut % (Auto) % Lymph % (Auto) % [place] % (Auto) % Eos % (Auto) % Baso % (Auto) % Neut # (Auto) (1.4-6.5) K/uL Lymph # (Auto) (1.2-3.4) K/uL [place] # (Auto) (0.24-0.82) K/uL Eos # (Auto) (0-0.50) K/uL Baso # (Auto) (0-0.2) K/uL Immature Gran # (Auto) (0.00-0.02) K/uL Absolute Nucleated RBC (0-0) K/uL Nucleated RBC % (auto) % PT (9.0-12.0) Seconds INR (0.9-1.1) APTT (21.0-31.0) Seconds PTT Ratio VBG pH 7.34 L (7.36-7.41) VBG pCO2 64 H (38-50) mmHg VBG pO2 29 mmHg VBG HCO3 35 mmol/L VBG O2 Saturation < 60.0 % VBG Base Excess 6.5 mEq/L Sodium (136-145) mmol/L Potassium (3.5-5.1) mmol/L Chloride (98-107) mmol/L Carbon Dioxide (21-32) mmol/L Anion Gap (3-11) BUN (6-23) mg/dl Creatinine (0.6-1.2) mg/dl Est Cr Clr Drug Dosing ml/min Est GFR ( Amer) ml/min Est GFR (Non-Af Amer) ml/min BUN/Creatinine Ratio (10-20) Glucose (70-99(Fasting)) mg/dl Lactate 1.1 (0.4-2.0) mmol/L Calcium (8.5-10.1) mg/dl Magnesium (1.7-2.4) mg/dl Total Bilirubin (0.2-1.0) mg/dl Direct Bilirubin (0-0.2) mg/dl AST (13-39) U/L ALT (7-52) U/L Alkaline Phosphatase (34-104) U/L Troponin I High Sens (0-14) pg/ml B-Natriuretic Peptide (0-100) pg/ml Total Protein (6.0-8.3) gm/dl Albumin (3.4-5.0) gm/dl Lipase (11-82) U/L Procalcitonin (0-0.5) ng/ml Random Cortisol mcg/dl Urine Color Urine Appearance (Clear) Urine pH (4.5-7.5) Ur Specific [place] (1.000-1.030) Urine Protein (Negative) Urine Glucose (UA) (Negative) Urine Ketones (Negative) Urine Blood (Negative) Urine Nitrite (Negative) Urine Bilirubin (Negative) Urine Urobilinogen (Negative) Ur Leukocyte Esterase (Negative) Urine WBC (Auto) (0-5) /hpf Urine RBC (Auto) (0-4) /hpf U Hyaline Cast (Auto) (0-5) /lpf U Epithel Cells (Auto) (0-5) /lpf Urine Bacteria (Auto) (Negative) Urine Yeast (None Prsent) SARS-CoV-2 (PCR) POSITIVE A* (Negative) Influenza Type A (PCR) Negative (Neg) Influenza Type B (PCR) Negative (Neg) RSV (RT-PCR) Negative (Neg) 07/16/22 07/16/22 Range/Units 18:25 19:40 WBC (4.8-10.8) K/ul RBC (3.93-5.22) M/uL Hgb (12.0-16.0) g/dl Hct (34.1-44.9) % MCV (80.0-100.0) fL MCH (25.0-34.0) pg MCHC (32.0-36.0) g/dL RDW Std Deviation (36.4-46.3) fL RDW Coeff of [place] (11.5-14.5) % Plt Count (130-400) K/uL MPV (9.4-12.3) fL Immature Gran % (Auto) % Neut % (Auto) % Lymph % (Auto) % [place] % (Auto) % Eos % (Auto) % Baso % (Auto) % Neut # (Auto) (1.4-6.5) K/uL Lymph # (Auto) (1.2-3.4) K/uL [place] # (Auto) (0.24-0.82) K/uL Eos # (Auto) (0-0.50) K/uL Baso # (Auto) (0-0.2) K/uL Immature Gran # (Auto) (0.00-0.02) K/uL Absolute Nucleated RBC (0-0) K/uL Nucleated RBC % (auto) % PT (9.0-12.0) Seconds INR (0.9-1.1) APTT (21.0-31.0) Seconds PTT Ratio VBG pH (7.36-7.41) VBG pCO2 (38-50) mmHg VBG pO2 mmHg VBG HCO3 mmol/L VBG O2 Saturation % VBG Base Excess mEq/L Sodium (136-145) mmol/L Potassium (3.5-5.1) mmol/L Chloride (98-107) mmol/L Carbon Dioxide (21-32) mmol/L Anion Gap (3-11) BUN (6-23) mg/dl Creatinine (0.6-1.2) mg/dl Est Cr Clr Drug Dosing ml/min Est GFR ( Amer) ml/min Est GFR (Non-Af Amer) ml/min BUN/Creatinine Ratio (10-20) Glucose (70-99(Fasting)) mg/dl Lactate (0.4-2.0) mmol/L Calcium (8.5-10.1) mg/dl Magnesium (1.7-2.4) mg/dl Total Bilirubin (0.2-1.0) mg/dl Direct Bilirubin (0-0.2) mg/dl AST (13-39) U/L ALT (7-52) U/L Alkaline Phosphatase (34-104) U/L Troponin I High Sens (0-14) pg/ml B-Natriuretic Peptide 120 H (0-100) pg/ml Total Protein (6.0-8.3) gm/dl Albumin (3.4-5.0) gm/dl Lipase (11-82) U/L Procalcitonin (0-0.5) ng/ml Random Cortisol mcg/dl Urine Color Yellow Urine Appearance Turbid A (Clear) Urine pH 7.0 (4.5-7.5) Ur Specific [place] 1.009 (1.000-1.030) Urine Protein Trace H (Negative) Urine Glucose (UA) Negative (Negative) Urine Ketones Negative (Negative) Urine Blood 2+ H (Negative) Urine Nitrite Negative (Negative) Urine Bilirubin Negative (Negative) Urine Urobilinogen Negative (Negative) Ur Leukocyte Esterase 3+ H (Negative) Urine WBC (Auto) >30 H (0-5) /hpf Urine RBC (Auto) 5-10 H (0-4) /hpf U Hyaline Cast (Auto) 1-5 (0-5) /lpf U Epithel Cells (Auto) 5-10 H (0-5) /lpf Urine Bacteria (Auto) 2+ H (Negative) Urine Yeast Budding A (None Prsent) SARS-CoV-2 (PCR) (Negative) Influenza Type A (PCR) (Neg) Influenza Type B (PCR) (Neg) RSV (RT-PCR) (Neg) Imaging Data Radiologist's Impression: Chest X-Ray 07/16/22 18:04 SINGLE VIEW CHEST CLINICAL HISTORY: Dyspnea. FINDINGS: An AP, portable, upright chest radiograph is compared to study dated 01/22/2022 and correlated with chest CT dated 04/20/2022. The examination is degraded by portable technique and apical lordotic positioning. A right subclavian central venous infusion port is unchanged in position. There is a large hiatal hernia. The heart is enlarged noting atherosclerotic calcification of the thoracic aorta. The pulmonary vasculature is noncongested. Atelectasis is noted at the left lung base. No airspace consolidation or large pleural effusion is identified. No pneumothorax is seen. The skeletal structures are osteopenic. The bony thorax is grossly intact. Arthritic change is seen in the shoulders. IMPRESSION: Cardiomegaly with no acute cardiopulmonary abnormality identified. ACT 112: Negative or not required by law. Electronically signed by: Trung Marques M.D. 07/16/2022 7:[address] 07/16/22 18:20 CT SCAN OF THE BRAIN WITHOUT IV CONTRAST CLINICAL HISTORY: Change in mental status. COMPARISON STUDY: MRI of the brain dated 03/23/2022. TECHNIQUE: Unenhanced axial CT scan of the brain is performed from the vertex to the skull base. A dose lowering technique was utilized adhering to the principles of ALARA. CT DOSE: 884.08 mGy.cm FINDINGS: Brain parenchyma: There is age-related involutional change noting moderate subcortical and periventricular microangiopathic disease. There is no hemorrhage, mass effect, or evidence of acute territorial ischemia by CT criteria. Gregory-white matter differentiation is preserved. No extra-axial fluid collection is seen. Ventricles, sulci, cisterns: Prominent secondary to involutional change. Intracranial vasculature: There is atherosclerotic calcification of the cavernous carotid and vertebral arteries. Calvarium: Unremarkable. Sinuses and mastoids: The paranasal sinuses are clear. The mastoid air cells are well pneumatized. Orbits: The bony orbits are grossly intact. IMPRESSION: There is no hemorrhage, mass effect, or evidence of acute territorial ischemia by CT criteria. ACT 112: Negative or not required by law. Electronically signed by: Trung Marques M.D. 07/16/2022 7:32 PM Abdomen/Pelvis CT 07/16/22 18:59 CT SCAN OF THE ABDOMEN AND PELVIS WITHOUT IV CONTRAST CLINICAL HISTORY: Abdominal distention. COMPARISON STUDY: Abdominal CT dated 06/19/2022. TECHNIQUE: CT scan of the abdomen and pelvis is performed from the lung bases to the proximal femora. Images are reviewed in the axial, sagittal, and coronal planes. IV contrast was not administered for this examination. Note that the examination was performed in significantly suboptimal fashion without oral and IV contrast. A dose lowering technique was utilized adhering to the principles of ALARA. The patient was scanned twice due to motion artifact. There is streak artifact from the body wall abutting the CT gantry as well as a right hip arthroplasty. CT DOSE: 2828.98 mGy.cm FINDINGS: Lung bases: Degenerative a central venous infusion port catheter is noted at the cavoatrial junction. The heart is mildly enlarged and without pericardial effusion. The coronary arteries are densely calcified. There is a small left pleural effusion with left basilar consolidation. This is similar to previous. Trace pleural fluid is seen on the right. There is a moderate hiatal hernia appear Liver: The unenhanced liver is normal in size, contour, and attenuation. There is mild central intrahepatic biliary ductal dilatation. Gallbladder: Surgically absent noting clips in the gallbladder fossa. Spleen: Normal in size and attenuation. Pancreas: The unenhanced pancreas is atrophic and grossly unremarkable. Adrenal glands: Unremarkable. Kidneys: The unenhanced kidneys demonstrate mild cortical atrophy and are without hydronephrosis. There are no renal calculi identified. There is no evidence of contour deforming renal mass lesion. Abdominal vasculature: The abdominal aorta is normal in course and caliber noting mild to moderate atherosclerotic calcification. Bowel: There is postsurgical change from a left colon resection with left lower quadrant colostomy and rectosigmoid stump formation. No bowel obstruction is seen. Moderate fecal retention is noted in the right colon. The appendix is well-visualized and normal. Peritoneum: There is no intraperitoneal free air or abdominal ascites. Lymphadenopathy: None. Pelvic viscera: Evaluation of the pelvis is degraded by streak artifact from a right hip arthroplasty. The bladder is decompressed around a Rivera catheter. F oci of intraluminal gas are nonspecific and likely related to instrumentation. The uterus is surgically absent. No adnexal lesion is seen. Skeletal structures: The skeletal structures are osteopenic. There are bilateral sacral insufficiency fractures with evidence of previous cement fixation. 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 A right hip a rthroplasty is in place. IMPRESSION: 1. No acute infectious or inflammatory findings are identified in the abdomen or pelvis. 2. Again seen is postsurgical change from left colon resection and left lower quadrant colostomy. No bowel obstruction is seen. 3. 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 4. Bilateral sacral insufficiency fractures are again noted with evidence of prior cement fixation. 5. Cardiomegaly. 6. Small left pleural effusion with left basilar consolidation. This is similar to previous. 7. Moderate hiatal hernia. 8. Additional findings as above. ACT 112: Negative or not required by law. Electronically signed by: Trung Marques M.D. 07/16/2022 7:52 PM ECG Data Indication: + altered mental status Rate (beats per minute): 95 Rhythm: + normal sinus ECG Intervals/blocks: + Normal QRS, + Normal TN and + Normal QT-c ECG ST segments: + Normal ST segments MDM Narrative 1803: The patient was evaluated in room C6. A complete history and physical exam was performed Cardiac monitoring: An order was placed for continuous cardiac monitoring. The monitor shows a rate of 90 with sinus rhythm On arrival in the room the patient was hypoxic on room air down into the 70s. Patient does not usually wear oxygen. Supplemental oxygen was applied via nasal cannula which improved the patient oxygen saturation. Patient was also hypotensive approximately 50/30. 2 L IV fluid was mainly ordered for the patient sepsis protocols were initiated. I had a discussion with the family at bedside who confirmed that the patient is DNR/DNI and do not want heroic measures performed on the patient including but not limited to chest compressions, defibrillation/cardioversions, and intubation however they are okay with the patient getting IV fluids, IV antibiotics, and vasopressors. EMR was reviewed and the patient has a history of ESBL. Patient will be empirically treated with ertapenem as Rivera catheter was placed and her urine looked very cloudy and had a foul order to it. 1840: Patient's blood pressure is improving now 80s over 40s. Family does state that the patient's blood pressure has been running low lately. Now that the patient's blood pressure has improved the patient is mentating better and now can recognize her family at bedside. 1900: Patient's blood pressure improved, patient taken to CT scan. 1949: Blood pressure stable. Patient positive for COVID-19. Given the patient's hypoxia and COVID-positive, Decadron 6 mg IV push ordered for the patient. 2014: Patient becoming hypotensive again. Third liter of IV fluids ordered for the patient. Patient be started on Levophed drip given her continued hypotension. Labs show a white blood cell count of 4.29. Hemoglobin 9.7. Platelet count 134. VBG within normal limits. Creatinine 2.48 this is up from patient's baseline of approximately 1. High-sensitivity troponin 16.7. Lactic acid within normal limits. Procalcitonin negative. CT of the head within normal limits. Chest x-ray shows no infiltrate or cephalization but does show cardiomegaly. CT of the abdomen which was completed without contrast given the patient's renal function showed no acute infectious or inflammatory findings. 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 Discussed the case with Dr. Collins [facility] [address] hospitalist will evaluate the patient and admit her to his service. 2024: Nursing reported the patient's blood pressure is improving with IV fluids blood pressure now 103/84. IV fluids will be continued and Levophed will be discontinued. 2107: Patient becoming hypotensive again. Levophed will be started. Patient be admitted to ICU under Dr. Collins service. Impression & Plan Hypoxia, COVID-19, Sepsis, Acute UTI Discharge Plan Visit Data Chief Complaint: Lethargic Stated Complaint: DECREASED LOC, HYPOXIA, COLOSTOMY ISSUES ED Provider: Ishan Marie Discharge Problem: Hypoxia, COVID-19, Sepsis, Acute UTI Patient Disposition: Admitted As Inpatient : Sepsis Qualifiers: Sepsis type: sepsis due to unspecified organism Sepsis acute organ dysfunction status: with acute organ dysfunction Severe sepsis acute organ dysfunction type: acute renal failure Acute renal failure type: unspecified Severe sepsis shock status: unspecified Qualified Code(s): A41.9 - Sepsis, unspecified organism
[2022-07-16 19:47] LABS: Influenza A virus by PCR Negative (Neg); Influenza B virus by PCR Negative (Neg); RSV by PCR Negative (Neg)
[2022-07-16] MEDS ORDERED: dexAMETHasone**PF** 10 MG/ML VIAL IV ONE (19:49)
[2022-07-16 19:50] LABS: SARS CoV2 RNA(COVID-19) Ceph POSITIVE (Negative)
--- NOTE | 2022-07-16 19:54 | CT Scan Report ---
CT SCAN OF THE ABDOMEN AND PELVIS WITHOUT IV CONTRAST CLINICAL HISTORY: Abdominal distention. COMPARISON STUDY: Abdominal CT dated 06/19/2022. TECHNIQUE: CT scan of the abdomen and pelvis is performed from the lung bases to the proximal femora. Images are reviewed in the axial, sagittal, and coronal planes. IV contrast was not administered for this examination. Note that the examination was performed in significantly suboptimal fashion withou t oral and IV contrast. A dose lowering technique was utilized adhering to the principles of ALARA. T he patient was scanned twice due to motion artifact. There is streak artifact from the body wall abut ting the CT gantry as well as a right hip arthroplasty. CT DOSE: 2828.98 mGy.cm FINDINGS: Lung bases: Degenerative a central venous infusion port catheter is noted at the cavoatrial junction. The heart is mildly enlarged and without pericardial effusion. The coronary arteries are densely eulalia cified. There is a small left pleural effusion with left basilar consolidation. This is similar to pr evious. Trace pleural fluid is seen on the right. There is a moderate hiatal hernia appear Liver: The unenhanced liver is normal in size, contour, and attenuation. There is mild central intrah epatic biliary ductal dilatation. Gallbladder: Surgically absent noting clips in the gallbladder fossa. Spleen: Normal in size and attenuation. Pancreas: The unenhanced pancreas is atrophic and grossly unremarkable. Adrenal glands: Unremarkable. Kidneys: The unenhanced kidneys demonstrate mild cortical atrophy and are without hydronephrosis. The re are no renal calculi identified. There is no evidence of contour deforming renal mass lesion. Abdominal vasculature: The abdominal aorta is normal in course and caliber noting mild to moderate at herosclerotic calcification. Bowel: There is postsurgical change from a left colon resection with left lower quadrant colostomy an d rectosigmoid stump formation. No bowel obstruction is seen. Moderate fecal retention is noted in th e right colon. The appendix is well-visualized and normal. Peritoneum: There is no intraperitoneal free air or abdominal ascites. Lymphadenopathy: None. Pelvic viscera: Evaluation of the pelvis is degraded by streak artifact from a right hip arthroplasty . The bladder is decompressed around a Rivera catheter. Foci of intraluminal gas are nonspecific and l ikely related to instrumentation. The uterus is surgically absent. No adnexal lesion is seen. Skeletal structures: The skeletal structures are osteopenic. There are bilateral sacral insufficiency fractures with evidence of previous cement fixation. Multifocal osteoblastic metastatic disease is s imilar to previous. A right hip arthroplasty is in place. IMPRESSION: 1. No acute infectious or inflammatory findings are identified in the abdomen or pelvis. 2. Again seen is postsurgical change from left colon resection and left lower quadrant colostomy. No bowel obstruction is seen. 3. 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 4. Bilateral sacral insufficiency fractures are again noted with evidence of prior cement fixation. 5. Cardiomegaly. 6. Small left pleural effusion with left basilar consolidation. This is similar to previous. 7. Moderate hiatal hernia. 8. Additional findings as above. ACT 112: Negative or not required by law. Electronically signed by: Trung Marques M.D. 07/16/2022 7:52 PM
[2022-07-16] MEDS ORDERED: STAT IV Infusion **Titration per Protocol STA (20:15)
[2022-07-16 20:19] LABS: Appearance Urine Turbid (Clear); Bacteria Urine Automated 2+ (Negative); Bilirubin Urine Negative (Negative); Blood Urine 2+ (Negative); Color Urine Yellow; Glucose Urine UA Negative (Negative); Ketones Urine Negative (Negative); Leukocyte Esterase Urine 3+ (Negative); Nitrite Urine Negative (Negative); Protein Urine Trace (Negative); Specific Gravity Urine 1.009 (1.000-1.030); Urobilinogen Urine Negative (Negative); WBC Urine Automated >30 /hpf (0-5)
[2022-07-16] MEDS: NOREPINEPHRINE/D5W 4 MG/250 ML PLCT IV SCH (20:57)
--- NOTE | 2022-07-16 21:13 | History & Physical Report ---
Date of Service July 16, 2022 Assessment & Plan (1) Sepsis: (2) COVID-19: (3) Malignant 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: (4) Hyperlipidemia: (5) Anxiety and depression: (6) Rheumatoid arthritis: (7) Anemia: (8) Gout: (9) Hypertension: Plan 72yo female with history of metastatic breast cancer on chemotherapy presenting with hypotension, acute hypoxic respiratory failure. Patient was resuscitated with 3L NSS in the ER and Levophed was initiated for persistent hypotension. Presently improved, BP now 116/63 1. Neuro - patient is somnolent, oriented to self and location. No focal neurologic deficits on exam. CT of the head was performed which was negative for acute intracranial pathology. Patient with history of depression -Continue Duloxetine -Continue Ativan 0.5mg po BID as needed 2. Pulmonary - patient with acute hypoxic respiratory failure upon arrival with saturation of 77% on room air. She is improved now on 2L. Patient is POSITIVE for Covid-19 by PCR. Was positive during her last admission as well on 06/19/22. She is on chemotherapy/immunosuppressed -Continue Covid-19 isolation -Supplemental O2 as needed -Continue CPAP qHS [id number] 3. Cardiovascular - patient hypotensive, now on Levophed - blood pressures improved. Random cortisol is low at 3. Patient has been on daily steroids - Dexamethasone 4mg po daily. Suspect some degree of adrenal insufficiency. Possible dehydration as well - recently started on Metolazone 2.5mg po BID in addition to her Bumex. Cr is markedly increased. Uncertain of sepsis - WBC=4.29, normal lactate of 1.1 and normal procalcitonin of 0.33. Saturations improved with minimal supplemental O2, no tachycardia - patient is high risk for PE given history of malignancy and Covid-19. -MICU admission -Continue Dexamethasone 6mg IV daily -Follow cultures -Empiric antibiotics with Ertapenem and Vancomycin -Continue Atorvastatin for chronic hyperlipidemia 4. GI - patient with recent acute diverticulitis, colovesicular fistula s/p diverting colostomy performed by Dr. Villarreal on 06/21/22. Staff did note possible urine in the colostomy bag. Rivera in place presenty and urine appears clear, yellow with minimal sediment -Consider contrast imaging when renal function improves -Colostomy management -Protonix 40mg po daily 5. - patient with KAT in setting of hypotension, recent additional of Metolazone -Check urine Na and urea -Renal dosing where needed -Repeat chemistry in AM 6. Heme - Patient with metastatic breast cancer with metastasis to bone. She is presently on chemotherapy and Xgeva -Continue Fentanyl patch -Continue Oxycodone 30mg po BID. Will hold her PRN Oxycodone 10mg po q 4 dose -Continue Ativan 0.5mg po BID - change to PRN -Cautious use of Opiates and Ativan in patient with compromised renal function History of Present Illness Chief Complaint: hypotension, confusion Primary Care Provider: [facility] Yamilet Joe is a 72yo female with history of metastatic breast cancer s/p XRT presently on chemotherapy. She received her third chemotherapy treatment yesterday as well as Xgeva after which she was very tired. She required two people to assist her in transfers. She also had some nausea. No report of fever or chills. No vomiting or diarrhea. Today she was very tired and somewhat confused. She did not recognize her friend at the intermediate. Her [id number] reports that she seemed somewhat confused. In the ER patient was markedly hypotensive with BP of 58/49, hypoxic to 77% on room air. She was administered 3L of NSS with minimal improvement in blood pressure. Low dose Levophed was initiated with improvement in blood pressure. She was somewhat confused which improved intermittently. ER Course: -Levo -Dexamethasone 6mg IV -Ertapenem -NSS x 3L Patient tested POSITIVE for Covid-19 on 06/29/22 on NAAT test and again today on PCR. Recent medication changes include addition of Metolazone 2.5mg po BID daily for treatment of LE edema started 07/12/22. Patient was recently admitted to [facility] from 06/19/22 - 06/29/22 with acute diverticulitis and colovesicular fistula. She had a diverting colostomy placed on 06/21/[address] Villarreal. She was found to have an ESBL E.coli UTI and completed treatment with Zosyn then Augmentin for total of 14 days. Patient had post-operative anemia with Hgb to 6.2 and required 3u PRBCs. Allergies Allergy/AdvReac Type Severity Reaction Status Date / Time No Known Allergies Allergy Verified 07/16/22 21:47 Home Medications Medication Instructions Recorded Confirmed Type cholecalciferol (vitamin D3) 125 5,000 unit PO QDL 04/25/18 07/16/22 History mcg (5,000 unit) capsule Lift chair #1 ea 08/22/20 04/28/22 Rx magnesium oxide 400 mg PO DAILY 10/27/20 07/16/22 History duloxetine 60 mg capsule,delayed 60 mg PO DAILY #90 caps 07/07/21 07/16/22 Rx release calcium carbonate 600 mg calcium 1,200 mg PO BID 08/28/21 07/16/22 History (1,500 mg) tablet (Calcium) CPAP Machine #1 ea 09/08/21 04/28/22 Rx atorvastatin 10 mg tablet 10 mg PO DAILY #90 tabs 09/15/21 07/16/22 Rx allopurinol 100 mg tablet 100 mg PO QAM 03/23/22 07/16/22 History dexamethasone 4 mg tablet 4 mg PO DAILY 04/27/22 07/16/22 History lidocaine 4 % topical patch 1 patch topical DAILY 04/28/22 07/16/22 History polyethylene glycol 3350 17 17 g PO BID 04/28/22 07/16/22 History gram/dose oral powder (Miralax) fentanyl 50 mcg/hr transdermal 50 mcg transdermal Q3D #5 ea 06/01/22 07/16/22 Rx patch gabapentin 300 mg capsule 300 mg PO BID #60 caps 06/01/22 07/16/22 Rx olmesartan 20 mg tablet 20 mg PO DAILY #30 tabs 06/01/22 07/16/22 Rx acetaminophen 325 mg tablet 650 mg PO Q6H PRN PAIN/FEVER 06/19/22 07/16/22 History (Tylenol) aluminum-mag hydroxide-simethicone 30 ml PO Q4H PRN Nausea 06/19/22 07/16/22 History 400 mg-400 mg-40 mg/5 mL oral susp (Maalox Maximum Strength) bisacodyl 5 mg tablet,delayed 10 mg PO QAM 06/19/22 07/16/22 History release bumetanide 2 mg tablet 2 mg PO BID 06/19/22 07/16/22 History lorazepam 0.5 mg tablet 0.5 mg PO Q12H 06/19/22 07/16/22 History menthol 0.44 %-zinc oxide 20.6 % 1 applic topical QS 06/19/22 07/16/22 History topical ointment (Calmoseptine) omeprazole 20 mg tablet,delayed 20 mg PO BID 06/19/22 07/16/22 History release ondansetron HCl 4 mg tablet 4 mg PO Q4H PRN NAUSEA/VOMITING 06/19/22 07/16/22 History potassium chloride 20 mEq 20 meq PO BID 06/19/22 07/16/22 History tablet,extended release prochlorperazine maleate 10 mg 10 mg PO Q4H PRN NAUSEA/VOMITING 06/19/22 07/16/22 History tablet metolazone 2.5 mg tablet 2.5 mg PO DAILY 07/16/22 07/16/22 History multivitamin 1 tab PO DAILY 07/16/22 07/16/22 History ondansetron HCl 8 mg tablet 8 mg PO . EVERY 24 HOURS PRN 07/16/22 07/16/22 History prevent nausea from chemo oxycodone 10 mg tablet 10 mg PO Q4 PRN Pain 07/16/22 07/16/22 History oxycodone 30 mg tablet,crush 30 mg PO Q12H 07/16/22 07/16/22 History resistant,extended release 12 hr Past Med/Surg History Medical History Claudication of both lower extremities Depression GERD (gastroesophageal reflux disease) controlled Hiatal hernia Hyperlipidemia Hypertension Inflammatory polyarthritis Malignant neoplasm of upper-inner quadrant of left breast in female, estrogen receptor negative (04/24/19) Nocturnal hypoxemia Obesity, morbid, BMI 40.0-49.9 Palliative care encounter Rheumatoid arthritis on Plaquenil/prednisone 5mg daily chronic (mostly affects spine/hip/knee locations, no cervical issues) Spinal stenosis, lumbar region with neurogenic claudication Surgical History Difficult airway for intubation WITH BREAST SURGERY 05/2019 [facility] H/O abdominal surgery (06/21/22) Laparoscopic Assisted Diverting Colostomy(Not Applicable) - Johnnie Villarreal, History of cholecystectomy History of colonoscopy History of esophagogastroduodenoscopy (EGD) History of lumpectomy of left breast partial History of open reduction and internal fixation (ORIF) procedure right wrist History of tonsillectomy and adenoidectomy History of total abdominal hysterectomy and bilateral salpingo-oophorectomy History of total hip arthroplasty RIGHT 10/2020 History of vascular access device present right chest Status post right foot surgery Family History Mother , age 77 CHF Family history of diabetes mellitus Hypertension Family history of cardiac disorder Diabetes type 2 Deep vein thrombosis Brother , age 49 colon cancer Family hx of colon cancer Colorectal cancer Grandfather Family hx of colon cancer PATERNAL Father , age 60 cardiac arrest Family history of cardiac disorder Myocardial infarction Sister Family history of malignant neoplasm Breast cancer, Onset Age: 50 Son Allergic rhinitis Coronary heart disease Son No problems noted. 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 [employer] How many Children do You have: 3 Feels Safe at Home: Yes Childhood Exposure to Second-Hand Smoke: Yes Diet Comment: low sodium caffeine: Yes during the past year weight has: other Dental Care, Regularly: Yes Physical Activity Frequency: 1-2 Times per Week Seatbelt Use: always Sunscreen Use: Yes (sometimes) Assistive Devices: Walker and Wheelchair Review of Systems Review of Systems: All systems reviewed & are unremarkable except as noted in HPI & below Physical Exam Physical Exam: General: patient somnolent, arousable, oriented to self and hospital, ill in appearance Skin: warm, dry, small tear on left arm with bandage in place HEENT: NC/AT, PERRL, EOMI, anicteric sclera, conjunctiva without injection, external ear normal to inspection and nontender, nares patent, moist mucus membranes, dentition intact, no oropharyngeal lesions, neck supple, trachea midline, no LAD, no thyromegaly, no JVD Heart: +S1/S2, regular, no m/r/g, port left chest wall - nontender Lungs: equal air entry bilaterally, no rales/rhonchi/wheezes Abd: +BS, soft, NT/ND, no masses/organomegaly/ascites, colostomy LLQ Ext: warm, 2+ pulses in UE/LE bilaterally, no clubbing/cyanosis or edema Neuro: nonfocal Results & Data Results & Data ([facility]) Vital Signs (Past 12 Hours) Vital Signs Temp Pulse Resp BP Pulse Ox O2 Del Method O2 Flow Rate 07/16/22 21:01 88 19 60/34 L 96 Nasal Cannula 4 07/16/22 20:45 84 16 77/65 L 96 Nasal Cannula 4 07/16/22 20:30 93/60 L 07/16/22 20:30 89 14 103/84 96 Nasal Cannula 4 07/16/22 19:40 85 18 82/50 L 98 Nasal Cannula 4 07/16/22 19:16 83 13 70/57 L 99 Nasal Cannula 4 07/16/22 19:07 86 14 114/95 98 Nasal Cannula 4 07/16/22 19:49 100 Nasal Cannula 4 07/16/22 19:00 86 16 93/60 L 96 Nasal Cannula 4 07/16/22 18:51 84 16 92/58 L 96 Room Air 4 07/16/22 18:45 88 17 104/55 L 98 Nasal Cannula 4 07/16/22 18:40 89 16 98 07/16/22 18:40 78/60 L 07/16/22 18:35 84/53 L 07/16/22 18:35 89 18 100 07/16/22 18:30 91 H 19 92 07/16/22 18:30 82/50 L 07/16/22 18:29 68/52 L 07/16/22 18:29 91 H 22 97 07/16/22 18:20 91 H 21 99 07/16/22 18:16 93 H 18 100 07/16/22 18:16 40/32 L 07/16/22 18:14 58/49 L 07/16/22 18:14 94 H 17 99 07/16/22 18:10 92 H 10 L 100 07/16/22 18:04 56/43 L 07/16/22 18:04 92 H 17 07/16/22 18:00 92 H 17 68 L 07/16/22 17:50 92 H 16 95 07/16/22 17:42 90 17 95 07/16/22 17:29 37.0 C 94 H 8 L 125/74 77 L Room Air Laboratory Results Laboratory Results WBC 4.29 K/ul (4.8-10.8) L 07/16/22 18:08 RBC 3.02 M/uL (3.93-5.22) L 07/16/22 18:08 Hgb 9.7 g/dl (12.0-16.0) L 07/16/22 18:08 Hct 29.6 % (34.1-44.9) L 07/16/22 18:08 MCV 98.0 fL (80.0-100.0) 07/16/22 18:08 MCH 32.1 pg (25.0-34.0) 07/16/22 18:08 MCHC 32.8 g/dL (32.0-36.0) 07/16/22 18:08 RDW Std Deviation 60.5 fL (36.4-46.3) H 07/16/22 18:08 RDW Coeff of [place] 17.2 % (11.5-14.5) H 07/16/22 18:08 Plt Count 134 K/uL (130-400) 07/16/22 18:08 MPV 9.2 fL (9.4-12.3) L 07/16/22 18:08 Immature Gran % (Auto) 0.7 % 07/16/22 18:08 Neut % (Auto) 96.8 % 07/16/22 18:08 Lymph % (Auto) 0.9 % 07/16/22 18:08 [place] % (Auto) 1.4 % 07/16/22 18:08 Eos % (Auto) 0.0 % 07/16/22 18:08 Baso % (Auto) 0.2 % 07/16/22 18:08 Neut # (Auto) 4.15 K/uL (1.4-6.5) 07/16/22 18:08 Lymph # (Auto) 0.04 K/uL (1.2-3.4) L 07/16/22 18:08 [place] # (Auto) 0.06 K/uL (0.24-0.82) L 07/16/22 18:08 Eos # (Auto) 0.00 K/uL (0-0.50) 07/16/22 18:08 Baso # (Auto) 0.01 K/uL (0-0.2) 07/16/22 18:08 Immature Gran # (Auto) 0.03 K/uL (0.00-0.02) H 07/16/22 18:08 Absolute Nucleated RBC 0.06 K/uL (0-0) H 07/16/22 18:08 Nucleated RBC % (auto) 1.4 % 07/16/22 18:08 PT 10.7 Seconds (9.0-12.0) 07/16/22 18:08 INR 1.0 (0.9-1.1) 07/16/22 18:08 APTT 23.1 Seconds (21.0-31.0) 07/16/22 18:08 PTT Ratio 0.8 07/16/22 18:08 VBG pH 7.34 (7.36-7.41) L 07/16/22 18:25 VBG pCO2 64 mmHg (38-50) H 07/16/22 18:25 VBG pO2 29 mmHg 07/16/22 18:25 VBG HCO3 35 mmol/L 07/16/22 18:25 VBG O2 Saturation < 60.0 % 07/16/22 18:25 VBG Base Excess 6.5 mEq/L 07/16/22 18:25 Sodium 137 mmol/L (136-145) 07/16/22 18:08 Potassium 4.8 mmol/L (3.5-5.1) 07/16/22 18:08 Chloride 97 mmol/L (98-107) L 07/16/22 18:08 Carbon Dioxide 31 mmol/L (21-32) 07/16/22 18:08 Anion Gap 9 (3-11) 07/16/22 18:08 BUN 53 mg/dl (6-23) H 07/16/22 18:08 Creatinine 2.48 mg/dl (0.6-1.2) H 07/16/22 18:08 Est Cr Clr Drug Dosing 24.5 ml/min 07/16/22 18:08 Est GFR ( Amer) 21.4 ml/min 07/16/22 18:08 Est GFR (Non-Af Amer) 18.5 ml/min 07/16/22 18:08 BUN/Creatinine Ratio 21.4 (10-20) H 07/16/22 18:08 Glucose 178 mg/dl (70-99(Fasting)) H 07/16/22 18:08 Lactate 1.1 mmol/L (0.4-2.0) 07/16/22 18:15 Calcium 7.8 mg/dl (8.5-10.1) L 07/16/22 18:08 Magnesium 2.4 mg/dl (1.7-2.4) 07/16/22 18:08 Total Bilirubin 0.7 mg/dl (0.2-1.0) 07/16/22 18:08 Direct Bilirubin 0.2 mg/dl (0-0.2) 07/16/22 18:08 AST 19 U/L (13-39) 07/16/22 18:08 ALT 25 U/L (7-52) 07/16/22 18:08 Alkaline Phosphatase 101 U/L (34-104) 07/16/22 18:08 Troponin I High Sens 16.7 pg/ml (0-14) H 07/16/22 18:08 B-Natriuretic Peptide 120 pg/ml (0-100) H 07/16/22 18:25 Total Protein 5.8 gm/dl (6.0-8.3) L 07/16/22 18:08 Albumin 3.2 gm/dl (3.4-5.0) L 07/16/22 18:08 Lipase 12 U/L (11-82) 07/16/22 18:08 Procalcitonin 0.33 ng/ml (0-0.5) 07/16/22 18:08 Random Cortisol 3.23 mcg/dl 07/16/22 18:08 Urine Color Yellow 07/16/22 19:40 Urine Appearance Turbid (Clear) A 07/16/22 19:40 Urine pH 7.0 (4.5-7.5) 07/16/22 19:40 Ur Specific Lloyd 1.009 (1.000-1.030) 07/16/22 19:40 Urine Protein Trace (Negative) H 07/16/22 19:40 Urine Glucose (UA) Negative (Negative) 07/16/22 19:40 Urine Ketones Negative (Negative) 07/16/22 19:40 Urine Blood 2+ (Negative) H 07/16/22 19:40 Urine Nitrite Negative (Negative) 07/16/22 19:40 Urine Bilirubin Negative (Negative) 07/16/22 19:40 Urine Urobilinogen Negative (Negative) 07/16/22 19:40 Ur Leukocyte Esterase 3+ (Negative) H 07/16/22 19:40 Urine WBC (Auto) >30 /hpf (0-5) H 07/16/22 19:40 Urine RBC (Auto) 5-10 /hpf (0-4) H 07/16/22 19:40 U Hyaline Cast (Auto) 1-5 /lpf (0-5) 07/16/22 19:40 U Epithel Cells (Auto) 5-10 /lpf (0-5) H 07/16/22 19:40 Urine Bacteria (Auto) 2+ (Negative) H 07/16/22 19:40 Urine Yeast Budding (None Prsent) A 07/16/22 19:40 SARS-CoV-2 (PCR) POSITIVE (Negative) A* 07/16/22 18:22 Influenza Type A (PCR) Negative (Neg) 07/16/22 18:22 Influenza Type B (PCR) Negative (Neg) 07/16/22 18:22 RSV (RT-PCR) Negative (Neg) 07/16/22 18:22 Impressions Chest X-Ray 07/16/22 18:04 SINGLE VIEW CHEST CLINICAL HISTORY: Dyspnea. FINDINGS: An AP, portable, upright chest radiograph is compared to study dated 01/22/2022 and correlated with chest CT dated 04/20/2022. The examination is degraded by portable technique and apical lordotic positioning. A right subclavian central venous infusion port is unchanged in position. There is a large hiatal hernia. The heart is enlarged noting atherosclerotic calcification of the thoracic aorta. The pulmonary vasculature is noncongested. Atelectasis is noted at the left lung base. No airspace consolidation or large pleural effusion is identified. No pneumothorax is seen. The skeletal structures are osteopenic. The bony thorax is grossly intact. Arthritic change is seen in the shoulders. IMPRESSION: Cardiomegaly with no acute cardiopulmonary abnormality identified. ACT 112: Negative or not required by law. Electronically signed by: Trung Marques M.D. 07/16/2022 7:[address] 07/16/22 18:20 CT SCAN OF THE BRAIN WITHOUT IV CONTRAST CLINICAL HISTORY: Change in mental status. COMPARISON STUDY: MRI of the brain dated 03/23/2022. TECHNIQUE: Unenhanced axial CT scan of the brain is performed from the vertex to the skull base. A dose lowering technique was utilized adhering to the principles of ALARA. CT DOSE: 884.08 mGy.cm FINDINGS: Brain parenchyma: There is age-related involutional change noting moderate subcortical and periventricular microangiopathic disease. There is no hemorrhage, mass effect, or evidence of acute territorial ischemia by CT criteria. Gregory-white matter differentiation is preserved. No extra-axial fluid collection is seen. Ventricles, sulci, cisterns: Prominent secondary to involutional change. Intracranial vasculature: There is atherosclerotic calcification of the cavernous carotid and vertebral arteries. Calvarium: Unremarkable. Sinuses and mastoids: The paranasal sinuses are clear. The mastoid air cells are well pneumatized. Orbits: The bony orbits are grossly intact. IMPRESSION: There is no hemorrhage, mass effect, or evidence of acute territorial ischemia by CT criteria. ACT 112: Negative or not required by law. Electronically signed by: Trung Marques M.D. 07/16/2022 7:32 PM Abdomen/Pelvis CT 07/16/22 18:59 CT SCAN OF THE ABDOMEN AND PELVIS WITHOUT IV CONTRAST CLINICAL HISTORY: Abdominal distention. COMPARISON STUDY: Abdominal CT dated 06/19/2022. TECHNIQUE: CT scan of the abdomen and pelvis is performed from the lung bases to the proximal femora. Images are reviewed in the axial, sagittal, and coronal planes. IV contrast was not administered for this examination. Note that the examination was performed in significantly suboptimal fashion without oral and IV contrast. A dose lowering technique was utilized adhering to the principles of ALARA. The patient was scanned twice due to motion artifact. There is streak artifact from the body wall abutting the CT gantry as well as a right hip arthroplasty. CT DOSE: 2828.98 mGy.cm FINDINGS: Lung bases: Degenerative a central venous infusion port catheter is noted at the cavoatrial junction. The heart is mildly enlarged and without pericardial effusion. The coronary arteries are densely calcified. There is a small left pleural effusion with left basilar consolidation. This is similar to previous. Trace pleural fluid is seen on the right. There is a moderate hiatal hernia appear Liver: The unenhanced liver is normal in size, contour, and attenuation. There is mild central intrahepatic biliary ductal dilatation. Gallbladder: Surgically absent noting clips in the gallbladder fossa. Spleen: Normal in size and attenuation. Pancreas: The unenhanced pancreas is atrophic and grossly unremarkable. Adrenal glands: Unremarkable. Kidneys: The unenhanced kidneys demonstrate mild cortical atrophy and are without hydronephrosis. There are no renal calculi identified. There is no evidence of contour deforming renal mass lesion. Abdominal vasculature: The abdominal aorta is normal in course and caliber noting mild to moderate atherosclerotic calcification. Bowel: There is postsurgical change from a left colon resection with left lower quadrant colostomy and rectosigmoid stump formation. No bowel obstruction is seen. Moderate fecal retention is noted in the right colon. The appendix is well-visualized and normal. Peritoneum: There is no intraperitoneal free air or abdominal ascites. Lymphadenopathy: None. Pelvic viscera: Evaluation of the pelvis is degraded by streak artifact from a right hip arthroplasty. The bladder is decompressed around a Rivera catheter. Foci of intraluminal gas are nonspecific and likely related to instrumentation. The uterus is surgically absent. No adnexal lesion is seen. Skeletal structures: The skeletal structures are osteopenic. There are bilateral sacral insufficiency fractures with evidence of previous cement fixation. 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 A right hip arthroplasty is in place. IMPRESSION: 1. No acute infectious or inflammatory findings are identified in the abdomen or pelvis. 2. Again seen is postsurgical change from left colon resection and left lower quadrant colostomy. No bowel obstruction is seen. 3. 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 4. Bilateral sacral insufficiency fractures are again noted with evidence of prior cement fixation. 5. Cardiomegaly. 6. Small left pleural effusion with left basilar consolidation. This is similar to previous. 7. Moderate hiatal hernia. 8. Additional findings as above. ACT 112: Negative or not required by law. Electronically signed by: Trung Marques M.D. 07/16/2022 7:52 PM Code Status & VTE Plan VTE Prophylaxis Plan VTE Prophylaxis will be ordered: Yes Critical Care Time 75 minutes PG Care Time/CCT Total # of Minutes Spent Total Time Spent with Patient: Total time spent is greater than 50% in coordination of care (as documented) at patient's floor/unit and/or counseling patient: Coding Level of Care Code None Diagnoses Sepsis A41.9; R65.20; N17.9 Acute renal failure type: unspecified Sepsis acute organ dysfunction status: with acute organ dysfunction Sepsis type: sepsis due to unspecified organism Severe sepsis acute organ dysfunction type: acute renal failure Severe sepsis shock status: unspecified COVID-19 U07.1 Malignant 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 C50.919; C79.51 Hyperlipidemia E78.5 Anxiety and depression F41.9; F32.9 Rheumatoid arthritis M06.9 Anemia D64.9 Gout M10.9 Hypertension I10 (1) Sepsis Acute renal failure type: unspecified Sepsis acute organ dysfunction status: with acute organ dysfunction Sepsis type: sepsis due to unspecified organism Severe sepsis acute organ dysfunction type: acute renal failure Severe sepsis shock status: unspecified Qualified Code(s): A41.9 - Sepsis, unspecified organism; R65.20 - Severe sepsis without septic shock; N17.9 - Acute kidney failure, unspecified
[2022-07-16] MEDS ORDERED: VANCOMYCIN CONSULT ACTIVE PRN (23:43)
[2022-07-16] MEDS ORDERED: LORazepam 0.5 MG TAB PO PRN (23:43)
[2022-07-17] MEDS ORDERED: VANCOMYCIN HCL 2,250 MG in SODIUM CHLORIDE 0.9% 500 ML IV ONE (00:15)
[2022-07-17] MEDS: NYSTATIN POWDER 15GM BTL EXT SCH ×3 (00:22→22:34)
[2022-07-17] MEDS: oxyCODONE HCL 15 MG TABCR (OxyCONTIN) PO SCH ×3 (00:22→21:28)
[2022-07-17] MEDS: CHECK fentaNYL PATCH PLACEMENT SCH ×3 (00:23→14:53)
--- NOTE | 2022-07-17 00:23 | Critical Care Consultation ---
Date of Consultation July 17, 2022 Assessment & Plan (1) Septic shock: Reason Critically Ill: 72-year-old female with metastatic breast cancer to bone and currently undergoing chemotherapy presents to the ICU with hypotension requiring vasopressor support likely from septic shock versus adrenal insufficie ncy. Neuro - Encephalopathyimproving. Likely metabolic in the setting of sepsis. CT head negative for acute intracranial findings. Monitor for now. Cardiac - Shockreceived 3 L crystalloid bolus in the ED and now requiring vasopressor support with Levophed drip -Currently undergoing treatment for sepsis. See ID below -Random cortisol 3 and patient on Decadron. Continue with dexamethasone 6 mg daily -Echo 11/20 EF 55 to 60% grade 2 diastolic dysfunction -Maintain maps greater than 65, wean pressors as tolerated -Hold antihypertensives -Continue IV fluid resuscitation. Hold on diuresis for now -Continuous monitor on telemetry Respiratory - Hypoxiaappears to be improving and currently weaning nasal cannula. She does have history of GERMAN and requires CPAP. -PCR positive for COVID-19 although this was also positive on 06/19. Chest x-ray unremarkable -Patient does have history of diastolic dysfunction. Hold on diuresis for now given KAT and hypotension -No other respiratory symptoms. We will attempt to wean oxygen to room air and CPAP support at night -Continuous monitoring on pulse ox GI - Recent acute diverticulitis with colovesicular fistula status post diverting colostomy performed by Dr. Villarreal on 06/21. Colostomy appears to be functioning properly. CT abdomen and pelvis with normal postsurgical changes. Continue PPI RENAL/LYTES - AKInew finding on BMP with normal kidney function on previous admission. Suspect this is likely ATN in the setting of shock -Continue with IV fluid resuscitation and maintain maps greater than 65 -Hold on diuretics and renally adjust medications. Avoid nephrotoxic agents -Monitor with routine BMP - Strict I's and O's ENDO - No history of diabetes or thyroid disease ICU hyperglycemic protocol HEME - Acute blood loss anemia on recent admission following surgery, H&H appears to be stable. Monitor routine CBCs and transfuse if indicated Metastatic breast cancer with metastasis to bonesunderwent third round of chemo with Xgeva. -Continue fentanyl patch and oxycodone for pain management ID - Sepsissuspect UTI given urinalysis and recent treatment with the ESBL E. coli. Cannot rule out other sources given patient immunocompromised while undergoing chemo -Chest x-ray unremarkable Lactate and procalcitonin unremarkable. No leukocytosis, no fevers- -Blood cultures and urine culture pending -COVID-19 positive on PCR but was diagnosed on 06/19. Low suspicion this is culprit given the timeline. We will continue with dexamethasone for now given dual purpose of adrenal insufficiency as well -Continue broad-spectrum antibiotics with vancomycin and ertapenem LINES/IV ACCESS - Right subclavian port DVT PROPHYLAXIS - SCDs, Lovenox CODE STATUSDNR/DNI I have personally spent 45 minutes of critical care time in the direct management of this patient. This is a life/limb threatening event. This includes time spent evaluating patient, direct bedside care, chart review, placing orders, interpretation of diagnostic studies, discussion with consultants, patient, and family members, as well as other required patient management activities. This time is exclusive of all separately billable procedures, and teaching time and separate from and in addition to any other critical care service time. Thank you for allowing us to participate in the care of this patient. Please refer to my attending physician's documentation for any further recommendations. (2) Hypoxia: (3) COVID-19: (4) Acute UTI: (5) H/O abdominal surgery: (6) Lower extremity edema: (7) Malignant 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: (8) Chronic diastolic CHF (congestive heart failure): (9) Hyperlipidemia: (10) Anemia: (11) Moderate obstructive sleep apnea: (12) Anxiety and depression: (13) Rheumatoid arthritis: (14) Hypertension: Supervising Physician Co-Signing Physician Notes I have personally evaluated and examined this patient. I agree with assessment and plan of Toya VALDOVINOS. During my evaluation the patient's vital signs have significantly improved, she is off vasoactive medication. At this time and discontinuing the norepinephrine as well as the Decadron. Continue the current antibiotic regimen for the next 24 to 48 hours until speciation if there is a organism identified History of Present Illness Attending Physician: Sara Collins, DO History of Present Illness 72-year-old female with history of HLD, anxiety and depression, RA, anemia, gout, HTN and currently undergoing treatment for metastatic breast cancer XRT and recently underwent her third round of chemotherapy as of yesterday with Xgeva. Patient was found to be tired and confused at her skilled nursing today and was brought into the emergency department where she was found to also be hypotensive with blood pressure 58/49 and hypoxic with sats in the 70s. Patient was placed on nasal cannula and was given 3 L crystalloid bolus however she remained hypotensive and was started on Levophed. She was also found to have KAT on BMP. She does have a port for chemo to provide central access. Patient was recently found to be positive for COVID-19 on 06/29 and was again positive with PCR today. She had a recent admission from 06/19-06/29 with acute diverticulitis and colovesicular fistula for which she had diverting colostomy placed. She was anemic postop and required 3 units RBCs. She was also treated for UTI with ESBL E. coli and underwent 14 days of treatment with Zosyn and Augmentin. Patient is now transferred to ICU for further management at this time and is currently undergoing treatment for septic shock requiring vasopressor support. On arrival to the ICU patient is slightly confused. CT head negative for acute intracranial findings. She denies any fevers, headache, dizziness, changes in vision, syncope, sore throat, cough, shortness of breath, chest pain or palpitations, nausea vomiting or diarrhea, abdominal pain. She does state that she routinely gets swelling in her feet and normally takes Bumex. Allergies Allergy/AdvReac Type Severity Reaction Status Date / Time No Known Allergies Allergy Verified 07/16/22 21:47 Home Medications Medication Instructions Recorded Confirmed Type cholecalciferol (vitamin D3) 125 5,000 unit PO QDL 04/25/18 07/16/22 History mcg (5,000 unit) capsule Lift chair #1 ea 08/22/20 04/28/22 Rx magnesium oxide 400 mg PO DAILY 10/27/20 07/16/22 History duloxetine 60 mg capsule,delayed 60 mg PO DAILY #90 caps 07/07/21 07/16/22 Rx release calcium carbonate 600 mg calcium 1,200 mg PO BID 08/28/21 07/16/22 History (1,500 mg) tablet (Calcium) CPAP Machine #1 ea 09/08/21 04/28/22 Rx atorvastatin 10 mg tablet 10 mg PO DAILY #90 tabs 09/15/21 07/16/22 Rx allopurinol 100 mg tablet 100 mg PO QAM 03/23/22 07/16/22 History dexamethasone 4 mg tablet 4 mg PO DAILY 04/27/22 07/16/22 History lidocaine 4 % topical patch 1 patch topical DAILY 04/28/22 07/16/22 History polyethylene glycol 3350 17 17 g PO BID 04/28/22 07/16/22 History gram/dose oral powder (Miralax) fentanyl 50 mcg/hr transdermal 50 mcg transdermal Q3D #5 ea 06/01/22 07/16/22 Rx patch gabapentin 300 mg capsule 300 mg PO BID #60 caps 06/01/22 07/16/22 Rx olmesartan 20 mg tablet 20 mg PO DAILY #30 tabs 06/01/22 07/16/22 Rx acetaminophen 325 mg tablet 650 mg PO Q6H PRN PAIN/FEVER 06/19/22 07/16/22 History (Tylenol) aluminum-mag hydroxide-simethicone 30 ml PO Q4H PRN Nausea 06/19/22 07/16/22 History 400 mg-400 mg-40 mg/5 mL oral susp (Maalox Maximum Strength) bisacodyl 5 mg tablet,delayed 10 mg PO QAM 06/19/22 07/16/22 History release bumetanide 2 mg tablet 2 mg PO BID 06/19/22 07/16/22 History lorazepam 0.5 mg tablet 0.5 mg PO Q12H 06/19/22 07/16/22 History menthol 0.44 %-zinc oxide 20.6 % 1 applic topical QS 06/19/22 07/16/22 History topical ointment (Calmoseptine) omeprazole 20 mg tablet,delayed 20 mg PO BID 06/19/22 07/16/22 History release ondansetron HCl 4 mg tablet 4 mg PO Q4H PRN NAUSEA/VOMITING 06/19/22 07/16/22 History potassium chloride 20 mEq 20 meq PO BID 06/19/22 07/16/22 History tablet,extended release prochlorperazine maleate 10 mg 10 mg PO Q4H PRN NAUSEA/VOMITING 06/19/22 07/16/22 History tablet metolazone 2.5 mg tablet 2.5 mg PO DAILY 07/16/22 07/16/22 History multivitamin 1 tab PO DAILY 07/16/22 07/16/22 History ondansetron HCl 8 mg tablet 8 mg PO . EVERY 24 HOURS PRN 07/16/22 07/16/22 History prevent nausea from chemo oxycodone 10 mg tablet 10 mg PO Q4 PRN Pain 07/16/22 07/16/22 History oxycodone 30 mg tablet,crush 30 mg PO Q12H 07/16/22 07/16/22 History resistant,extended release 12 hr Patient History Medical History Claudication of both lower extremities Depression GERD (gastroesophageal reflux disease) controlled Hiatal hernia Hyperlipidemia Hypertension Inflammatory polyarthritis Malignant neoplasm of upper-inner quadrant of left breast in female, estrogen receptor negative (04/24/19) Nocturnal hypoxemia Obesity, morbid, BMI 40.0-49.9 Palliative care encounter Rheumatoid arthritis on Plaquenil/prednisone 5mg daily chronic (mostly affects spine/hip/knee locations, no cervical issues) Spinal stenosis, lumbar region with neurogenic claudication Surgical History Difficult airway for intubation WITH BREAST SURGERY 05/2019 [facility] H/O abdominal surgery (06/21/22) Laparoscopic Assisted Diverting Colostomy(Not Applicable) - Johnnie Villarreal, DO History of cholecystectomy History of colonoscopy History of esophagogastroduodenoscopy (EGD) History of lumpectomy of left breast partial History of open reduction and internal fixation (ORIF) procedure right wrist History of tonsillectomy and adenoidectomy History of total abdominal hysterectomy and bilateral salpingo-oophorectomy History of total hip arthroplasty RIGHT 10/2020 History of vascular access device present right chest Status post right foot surgery Family History Mother , age 77 CHF Family history of diabetes mellitus Hypertension Family history of cardiac disorder Diabetes type 2 Deep vein thrombosis Brother , age 49 colon cancer Family hx of colon cancer Colorectal cancer Grandfather Family hx of colon cancer PATERNAL Father , age 60 cardiac arrest Family history of cardiac disorder Myocardial infarction Sister Family history of malignant neoplasm Breast cancer, Onset Age: 50 Son Allergic rhinitis Coronary heart disease Son No problems noted. 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 [employer] How many Children do You have: 3 Feels Safe at Home: Yes Childhood Exposure to Second-Hand Smoke: Yes Diet Comment: low sodium caffeine: Yes during the past year weight has: other Dental Care, Regularly: Yes Physical Activity Frequency: 1-2 Times per Week Seatbelt Use: always Sunscreen Use: Yes (sometimes) Assistive Devices: Cane, CPAP, Glasses and Walker Review of Systems Review of Systems: All systems reviewed & are unremarkable except as noted in HPI & below Physical Exam Constitutional: WD/WN, vitals as above Eyes: PERRL, conjunctivae normal, anicteric sclerae ENMT: external ear and nose normal, oropharynx normal Neck: trachea midline, no thyromegaly Respiratory: normal respiratory effort, lungs clear to auscultation Cardiovascular: RRR, no murmur, no edema Heart Sounds: normal S1 and normal S2 Gastrointestinal (Abdomen): normal bowel sounds, soft, nontender, no hepatosplenomegaly Musculoskeletal: no cyanosis or clubbing, extremities motor strength 5/5 Skin: no rashes, warm and dry Neurologic: PERRL, EOMI, accommodation nl, no face palsy, no dysarthria Psychiatric: Orientation: oriented to person and oriented to place; + not oriented to time Results & Data Results & Data ([facility]) Vital Signs (Past 12 Hours) Vital Signs Temp Pulse Resp BP Pulse Ox O2 Del Method O2 Flow Rate 07/16/22 22:30 93 H 19 116/93 94 Nasal Cannula 2 07/16/22 22:00 90 12 119/90 94 Nasal Cannula 2 07/16/22 21:47 89 14 106/84 98 Nasal Cannula 2 07/16/22 21:16 89 22 108/85 95 Nasal Cannula 2 07/16/22 21:01 88 19 60/34 L 96 Nasal Cannula 4 07/16/22 20:45 84 16 77/65 L 96 Nasal Cannula 4 07/16/22 20:30 89 14 103/84 96 Nasal Cannula 4 07/16/22 19:40 85 18 82/50 L 98 Nasal Cannula 4 07/16/22 19:16 83 13 70/57 L 99 Nasal Cannula 4 07/16/22 19:07 86 14 114/95 98 Nasal Cannula 4 07/16/22 19:49 100 Nasal Cannula 4 07/16/22 19:00 86 16 93/60 L 96 Nasal Cannula 4 07/16/22 18:51 84 16 92/58 L 96 Room Air 4 07/16/22 18:45 88 17 104/55 L 98 Nasal Cannula 4 07/16/22 18:40 89 16 98 07/16/22 18:40 78/60 L 07/16/22 18:35 84/53 L 07/16/22 18:35 89 18 100 07/16/22 18:30 91 H 19 92 07/16/22 18:30 82/50 L 07/16/22 18:29 68/52 L 07/16/22 18:29 91 H 22 97 07/16/22 18:20 91 H 21 99 07/16/22 18:16 93 H 18 100 07/16/22 18:16 40/32 L 07/16/22 18:14 58/49 L 07/16/22 18:14 94 H 17 99 07/16/22 18:10 92 H 10 L 100 07/16/22 18:04 56/43 L 07/16/22 18:04 92 H 17 07/16/22 18:00 92 H 17 68 L 07/16/22 17:50 92 H 16 95 07/16/22 17:42 90 17 95 07/16/22 17:29 37.0 C 94 H 8 L 125/74 77 L Room Air Coding Level of Care Code Critical Care 1st 30-74 mins Diagnoses Septic shock A41.9; R65.21 Hypoxia R09.02 COVID-19 U07.1 Acute UTI N39.0 H/O abdominal surgery Z98.890 Lower extremity edema R60.0 Malignant 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 C50.919; C79.51 Chronic diastolic CHF (congestive heart failure) I50.32 Hyperlipidemia E78.5 Anemia D64.9 Moderate obstructive sleep apnea G47.33 Anxiety and depression F41.9; F32.9 Rheumatoid arthritis M06.9 Hypertension I10
[2022-07-17] MEDS: NORMOSOL-R 1,000 ML IV SCH ×2 (02:13→14:08)
[2022-07-17 04:44] LABS: Hematocrit (blood only) 27.9 % (34.1-44.9); Hemoglobin 9.2 g/dl (12.0-16.0); Mean Corpuscular Hemoglobin 32.1 pg (25.0-34.0); Mean Corpuscular Volume 97.2 fL (80.0-100.0); Mean Platelet Volume 9.3 fL (9.4-12.3); Nucleated RBC # (auto) 0.04 K/uL (0-0); Nucleated RBC % (auto) 1.2 %; Platelet Count 134 K/uL (130-400); RDW Coefficient of Variation 17.2 % (11.5-14.5); RDW Standard Deviation 60.1 fL (36.4-46.3); Red Blood Count 2.87 M/uL (3.93-5.22); White Blood Count 3.47 K/ul (4.8-10.8)
[2022-07-17 05:03] LABS: Dohle Bodies 1+; Hypogranular Neutrophils 2+; Immature Granulocytes # (auto) 0.04 K/uL (0.00-0.02); Immature Granulocytes % (auto) 1.2 %; Lymphocytes # (auto) 0.07 K/uL (1.2-3.4); Monocytes # (auto) 0.04 K/uL (0.24-0.82); Monocytes % (auto) 1.2 %; Neutrophils # (auto) 3.32 K/uL (1.4-6.5); Neutrophils % (auto) 95.6 %
[2022-07-17 05:14] LABS: BUN Creatinine Ratio 28.5 (10-20); Calcium 6.8 mg/dl (8.5-10.1); Creatinine Clr Calc Pharmacy 35.6 ml/min; Est GFR (African American) 35.1 ml/min; Est GFR (Non-African American) 30.3 ml/min; Magnesium 2.2 mg/dl (1.7-2.4); Phosphorus 4.6 mg/dl (2.5-4.9); Potassium 3.6 mmol/L (3.5-5.1)
--- NOTE | 2022-07-17 07:14 | XRay Report ---
SINGLE VIEW CHEST CLINICAL HISTORY: Respiratory failure. FINDINGS: An AP, portable, upright chest radiograph is compared to study dated 07/16/2022 and correla teodora with chest CT dated 04/20/[address] dated 07/16/2022. The examination is degraded by p ortable technique and apical lordotic positioning. A right subclavian central venous infusion port is unchanged in position. There is a large hiatal hernia. The heart is enlarged noting atherosclerotic calcification of the thoracic aorta. The pulmonary vasculature is noncongested. Atelectasis is noted at the left lung base. No airspace consolidation or large pleural effusion is identified. No pneumoth orax is seen. The skeletal structures are osteopenic. The bony thorax is grossly intact. Arthritic ch denice is seen in the shoulders. IMPRESSION: 1. Cardiomegaly without radiographic evidence of congestive failure. 2. Small left pleural effusion with left basilar consolidation. 3. Hiatal hernia. ACT 112: Negative or not required by law. Electronically signed by: Trung Marques M.D. 07/17/2022 7:12 AM
[2022-07-17] MEDS: PANTOprazole 40 MG TAB PO SCH (08:11)
[2022-07-17] MEDS: DULoxetine HCL 60 MG CAP PO SCH (08:11)
[2022-07-17] MEDS: ATORVASTATIN 10 MG TAB PO SCH (08:12)
[2022-07-17] MEDS: ENOXAPARIN INJ 40 MG/0.4 ML SYR SQ SCH ×2 (08:13→21:12)
[2022-07-17] MEDS: NOREPINEPHRINE/D5W 4 MG/250 ML PLCT IV SCH (08:13)
[2022-07-17] MEDS: ICU Protocol for HYPERglycemia SCH ×4 (08:17→22:34)
[2022-07-17] MEDS ORDERED: dexAMETHasone 6 MG in SYRINGE 0 ML IV SCH (09:00)
--- NOTE | 2022-07-17 09:22 | Pharmacy Report ---
Pharmacy PK ABX Note - Date of Service July 17, 2022 - Assessment and Plan Assessment 72 year old F with metastatic breast cancer on chemotherapy receiving vancomycin and ertapenem for treatment of septic shock. Blood and urine cultures pending. MRSA nasal (-). No longer requiring pressor support. KAT (SCr 2.48 -->1.65mg/dL, baseline ~ 0.9) Day # 1 of antimicrobial therapy. Plan Vancomycin * Loading dose: 2250 mg IV x 1 * Given acute renal dysfunction, will dose by levels for now. * Random level today @ 1200 to guide further dosing Pharmacy will continue to follow and will adjust dose/frequency as necessary. Thank you.
[2022-07-17] MEDS ORDERED: VANCOMYCIN HCL 1,000 MG in SODIUM CHLORIDE 0.9% 250 ML IV ONE (13:30)
--- NOTE | 2022-07-17 16:47 | Hospitalist Progress Note ---
Date of Service July 17, 2022 Assessment & Plan (1) Hypotension: Plan: 72yo female with history of metastatic breast cancer on chemotherapy presenting with hypotension, acute hypoxic respiratory failure. Patient was resuscitated with 3L NSS in the ER and Levophed was initiated for persistent hypotension. Etiology includes recent addition of metolazone 2.5 Mg p.o. twice daily in addition to her Bumex, dehydration from undergoing recent chemotherapy, adrenal insufficiency due to being on chronic steroids Random cortisol is low at 3 but patient has been on daily steroids - Dexamethasone 4mg po daily for a month and a half at least for bony pain. Suspect some degree of adrenal insufficiency. Uncertain of sepsis as the cause- WBC=4.29, normal lactate of 1.1 and normal procalcitonin of 0.33. Saturations improved with minimal supplemental O2, no tachycardia - patient is high risk for PE given history of malignancy and Covid-19, but CTA chest not performed presumably to acute kidney injury on admission She was admitted to ICU and continued on Levophed, isotonic crystalloid solution initially times several liters but then later was given IV Lasix x1 Weaned off Levophed on the morning of 07/17 -Remains on Normosol-complete second liter of the day and then stop fluids as she is now tolerating p.o. and renal function improving, blood pressures are improved -Discontinue metolazone and would not restart again in the future -Holding home Bumex, olmesartan -Continue stress dose steroids with dexamethasone 6 mg IV twice daily for today and then likely go to once daily dexamethasone 6 mg tomorrow and then back to home p.o. dexamethasone 4 mg daily the day after that -Can likely downgrade out of the ICU in the morning if blood pressures remain stable -Given acute kidney injury, will not pursue CTA of the chest to assess for PE, but will get venous Dopplers of the bilateral lower extremities given severe lower extremity edema to look for DVT (2) Sepsis: Plan: As above, does have evidence of UTI and has persistent colovesicular fistula, but has diverting colostomy for the last several weeks It is possible for her to still have infection at this point in the bladder with respect to residual bacteria in the remaining unattached colon Given negative procalcitonin and absence of fever, do not suspect she has UTI with sepsis as the cause of her hypotension, but even if she has cystitis, would treat given underlying immunocompromised condition being on recent chemotherapy On previous admission, she was treated with IV Zosyn for 10 days and then was converted to Augmentin p.o. which she completed around 07/12 as per her [id number] Unfortunately, Augmentin is not considered a great treatment option for ESBL producing organisms despite the fact that the culture shows sensitivity to Augmentin -Started on ertapenem and vancomycin upon admission, but will convert to meropenem which has better mortality outcomes with ESBL organisms given that her previous culture showed this and she has severe presentation -Follow urine culture, blood cultures -Follow CBC, CMP, magnesium, phosphorus in the morning (3) KAT (acute kidney injury): Plan: Creatinine 2.48 on admission and now down to 1.65 with volume resuscitation and blood pressure support with Levophed Continue holding all diuretics i.e. metolazone, bumetanide; continue holding olmesartan from home Follow BMP in the morning -Maintain Rivera catheter for now -Continue IV fluids for 1 more liter through this evening then stop (4) Hypoxia: Plan: patient with acute hypoxic respiratory failure upon arrival with saturation of 77% on room air. Was initially placed on CPAP and now weaned off to 4 LNC Patient is POSITIVE for Covid-19 by PCR. Was positive initially on 06/29 and had some mild cough and wheezing at that time Do not suspect a new COVID-19 infection at this time, but rather hypoxia related to significant hypotension and acute encephalopathy/poor respiratory effort related to such She is on chemotherapy/immunosuppressed -Continue Covid-19 isolation for now, but can likely clear her off isolation precautions on Tuesday after discussion with infection control -Supplemental O2 as needed -Continue CPAP qHS [id number] -Not a candidate for Remdesivir given renal failure -Is on dexamethasone as above for stress dose steroids and is on it chronically regardless (5) Elevated troponin: Plan: Mildly elevated at 16 on admission secondary to hypoxia and hypotension Troponin was not repeated today -She does not have any ischemic changes on ECG or complaints of chest pain -Will follow troponin in the morning to ensure it is not trending upward significantly (6) Lower extremity edema: Plan: Severe peripheral edema Could be due to copious IV fluids over multiple hospitalizations, but also with hypoalbuminemia, poor nutrition, cancer status Recent echocardiogram with preserved EF Multiple attempts over the last month or so to use diuretics have resulted in either acute kidney injury or significant hypokalemia Holding diuretics and giving fluids as above for renal failure and hypotension Given that she has metastatic cancer and multiple prolonged hospitalizations, check venous Dopplers for DVT -Would start heparin drip for now if DVTs found on Dopplers, but after stabilized more could transition to Xarelto (7) COVID-19: Plan: As above (8) Anemia: Plan: Hemoglobin low at 9.2 but fairly stable to improved from previous Normocytic Check iron studies, B12, folate in the morning Follow CBC (9) Malignant 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: Plan: With numerous bony metastases Follows with Dr. Adama Prakash of [facility] onc[facility] Has only completed 2 rounds of palliative chemotherapy thus far due to recurrent infections and hospitalizations-her most recent treatment was the day prior to admission She is also completed palliative radiation for bony pain She is on chronic opioids for back pain-she is on 2 long-acting opioids with fentanyl patch and OxyContin 30 Mg p.o. twice daily, and uses immediate release oxycodone as needed for breakthrough pain Her pain is well controlled at this time -Continue bowel regimen in case of opioid-induced constipation-restart home MiraLAX 17 g p.o. twice daily -Restart home gabapentin 300 Mg p.o. twice daily tomorrow now that encephalopathy and renal failure improving -Giving stress dose steroids as above and then return to usual dose of dexamethasone 4 mg p.o. once daily for bony pain (10) Hypertension: Plan: With hypotension on admission Holding home Bumex, metolazone, olmesartan (11) Anxiety and depression: Plan: Continue home duloxetine 60 mg p.o. once daily and lorazepam as needed (12) Colovesical fistula: Plan: Secondary to severe diverticulitis with perforation on previous admission resulting in need for diverting colostomy with Dr. Villarreal This does continue to put her at risk for UTI as there is likely still residual bacteria in the colon Family is concerned that they were told it appeared that she had urine in her colostomy bag Currently I do not see this, but will watch for this CT abdomen/pelvis this admission does not show any evidence of inflammation or fistula Would ask her surgeon, Dr. Villarreal, to see her on Tuesday for follow-up (13) Hypocalcemia: Plan: Quite low at 6.8 and albumin slightly low Has a history of Xgeva administration Give 1 g IV calcium gluconate Restart home calcium carbonate tablets Follow calcium levels in the morning (14) Moderate obstructive sleep apnea: Plan: Continue CPAP at bedtime (15) Rheumatoid arthritis: Plan: Has been off of her hydroxychloroquine for some time due to recent infections Is now on dexamethasone daily for bony pain (16) Gout: Plan: Restart home allopurinol renally dosed at 100 Mg p.o. once daily (17) Hyperlipidemia: Plan: Continue atorvastatin 10 mg daily Plan DVT prophylaxis-SQ Lovenox for now unless acute DVT found on Dopplers Disposition-continued stay in ICU overnight but likely downgrade to PCU tomorrow Care discussed extensively at the bedside with her son and [id number] Admission and Anticipated Discharge Date Admission Date: July 16, 2022 Subjective Patient does not remember any events from yesterday. Is eating and drinking, feels okay. Extensively reviewed her condition, history, and treatment plan with her son and [id number] at the bedside for over 35 minutes. They are very concerned that Dr. Florentino told them that he thinks there is urine coming out in her colostomy bag yesterday before she was sent over to the hospital. They want to know if I think she has another fistula between her colon and her bladder. Sinus tachycardia with rates in the low 100s on telemetry. She was weaned off Levophed by this morning and blood pressures remained with MAP in the 70s when I saw her. Review of Systems Review of Systems: All systems reviewed & are unremarkable except as noted in HPI & below Physical Exam Constitutional: WD/WN, vitals as above (Alopecia) Eyes: + anicteric sclerae Neck: trachea midline, no thyromegaly Respiratory: normal respiratory effort, lungs clear to auscultation Cardiovascular: Rate/Rhythm: regular rhythm and + tachycardic Heart Sounds: normal S1 and normal S2; no murmur Extremities: + edema (3+ pitting edema feet and legs to the thighs bilaterally) Chest (Breasts): Chest: + vascular access device or port Gastrointestinal (Abdomen): Inspection/Auscultation: normal bowel sounds; + abdomen abnormal to inspection (LLQ colostomy bag with liquid brown stool) and abdomen not distended Percussion/Palpation: abdomen soft; abdomen nontender Musculoskeletal: Extremities: no cyanosis and no clubbing Skin: Numerous bruises on arms and legs, large resolving hematoma on abdominal wall Neurologic: moves all extremities and awake; no focal motor deficits Psychiatric: A+Ox3, euthymic affect Genitourinary: Rivera catheter in place draining clear yellow urine Results & Data Results & Data ([facility]) Vital Signs (Past 12 Hours) Vital Signs Temp Pulse Resp BP Pulse Ox O2 Del Method O2 Flow Rate 07/17/22 14:41 36.8 C 90 19 96 07/17/22 14:41 106/68 07/17/22 14:30 36.8 C 89 13 95 07/17/22 14:11 36.8 C 91 H 26 H 99 07/17/22 14:11 99/59 L 07/17/22 14:00 36.8 C 88 14 97 07/17/22 13:30 36.8 C 86 15 99 07/17/22 13:10 107/60 07/17/22 13:10 36.8 C 85 18 98 07/17/22 13:00 36.8 C 89 17 96 07/17/22 12:40 95/63 L 07/17/22 12:40 36.8 C 87 18 98 07/17/22 12:30 36.8 C 85 18 96 07/17/22 12:10 104/61 07/17/22 12:10 36.8 C 89 24 96 07/17/22 12:00 36.8 C 85 18 100 07/17/22 11:41 36.7 C 90 17 95 07/17/22 11:41 109/51 L 07/17/22 11:30 36.7 C 84 13 98 07/17/22 11:11 36.7 C 87 24 90 07/17/22 11:11 92/51 L 07/17/22 11:00 36.6 C 91 H 21 100 07/17/22 10:40 36.6 C 83 12 98 07/17/22 10:40 98/73 L 07/17/22 10:30 36.6 C 81 15 99 07/17/22 10:11 36.6 C 88 24 95 07/17/22 10:11 90/52 L 07/17/22 10:00 36.6 C 82 17 96 07/17/22 09:41 36.6 C 82 17 100 Nasal Cannula 4 07/17/22 09:41 91/63 L 07/17/22 09:30 36.6 C 80 14 99 07/17/22 09:11 36.6 C 86 24 93 07/17/22 09:11 84/55 L 07/17/22 09:00 36.6 C 87 20 100 07/17/22 08:41 36.6 C 86 16 96 07/17/22 08:41 104/51 L 07/17/22 08:30 36.6 C 92 H 20 96 07/17/22 08:10 36.7 C 83 13 98 07/17/22 08:10 119/69 07/17/22 08:00 36.7 C 87 15 97 07/17/22 07:40 36.8 C 82 21 97 07/17/22 07:40 104/70 07/17/22 07:30 36.8 C 82 17 97 CPAP 07/17/22 07:11 36.8 C 84 21 97 07/17/22 07:11 107/73 07/17/22 07:00 36.7 C 84 17 98 07/17/22 05:10 37.0 C 83 12 97/61 L 95 CPAP 07/17/22 05:00 37.1 C 80 12 95 Laboratory Results 07/17/22 07/17/22 07/17/22 Range/Units 16:27 11:58 11:13 WBC (4.8-10.8) K/ul RBC (3.93-5.22) M/uL Hgb (12.0-16.0) g/dl Hct (34.1-44.9) % MCV (80.0-100.0) fL MCH (25.0-34.0) pg MCHC (32.0-36.0) g/dL RDW Std Deviation (36.4-46.3) fL RDW Coeff of [place] (11.5-14.5) % Plt Count (130-400) K/uL MPV (9.4-12.3) fL Immature Gran % (Auto) % Neut % (Auto) % Lymph % (Auto) % Stephens % (Auto) % Eos % (Auto) % Baso % (Auto) % Neut # (Auto) (1.4-6.5) K/uL Lymph # (Auto) (1.2-3.4) K/uL Stephens # (Auto) (0.24-0.82) K/uL Eos # (Auto) (0-0.50) K/uL Baso # (Auto) (0-0.2) K/uL Immature Gran # (Auto) (0.00-0.02) K/uL Absolute Nucleated RBC (0-0) K/uL Nucleated RBC % (auto) % Hypogranular Neuts Dohle Bodies Sodium (136-145) mmol/L Potassium (3.5-5.1) mmol/L Chloride (98-107) mmol/L Carbon Dioxide (21-32) mmol/L Anion Gap (3-11) BUN (6-23) mg/dl Creatinine (0.6-1.2) mg/dl Est Cr Clr Drug Dosing ml/min Est GFR ( Amer) ml/min Est GFR (Non-Af Amer) ml/min BUN/Creatinine Ratio (10-20) Glucose (70-99(Fasting)) mg/dl POC Glucose 174 H 159 H (70-99) mg/dl Calcium (8.5-10.1) mg/dl Phosphorus (2.5-4.9) mg/dl Magnesium (1.7-2.4) mg/dl Random Cortisol mcg/dl Urine Color Urine Appearance (Clear) Urine pH (4.5-7.5) Ur Specific [place] (1.000-1.030) Urine Protein (Negative) Urine Glucose (UA) (Negative) Urine Ketones (Negative) Urine Blood (Negative) Urine Nitrite (Negative) Urine Bilirubin (Negative) Urine Urobilinogen (Negative) Ur Leukocyte Esterase (Negative) Urine WBC (Auto) (0-5) /hpf Urine RBC (Auto) (0-4) /hpf U Hyaline Cast (Auto) (0-5) /lpf U Epithel Cells (Auto) (0-5) /lpf Urine Bacteria (Auto) (Negative) Urine Yeast (None Prsent) Ur Random Sodium mmol/L Ur Random Urea Nitrogn Nasal Screen MRSA (PCR) (Negative) Random Vancomycin 16.6 (10-20) mcg/ml SARS-CoV-2 (PCR) (Negative) Influenza Type A (PCR) (Neg) Influenza Type B (PCR) (Neg) RSV (RT-PCR) (Neg) 07/17/22 07/17/22 07/17/22 Range/Units 04:12 04:12 00:10 WBC 3.47 L (4.8-10.8) K/ul RBC 2.87 L (3.93-5.22) M/uL Hgb 9.2 L (12.0-16.0) g/dl Hct 27.9 L (34.1-44.9) % MCV 97.2 (80.0-100.0) fL MCH 32.1 (25.0-34.0) pg MCHC 33.0 (32.0-36.0) g/dL RDW Std Deviation 60.1 H (36.4-46.3) fL RDW Coeff of [place] 17.2 H (11.5-14.5) % Plt Count 134 (130-400) K/uL MPV 9.3 L (9.4-12.3) fL Immature Gran % (Auto) 1.2 % Neut % (Auto) 95.6 % Lymph % (Auto) 2.0 % Stephens % (Auto) 1.2 % Eos % (Auto) 0.0 % Baso % (Auto) 0.0 % Neut # (Auto) 3.32 (1.4-6.5) K/uL Lymph # (Auto) 0.07 L (1.2-3.4) K/uL Stephens # (Auto) 0.04 L (0.24-0.82) K/uL Eos # (Auto) 0.00 (0-0.50) K/uL Baso # (Auto) 0.00 (0-0.2) K/uL Immature Gran # (Auto) 0.04 H (0.00-0.02) K/uL Absolute Nucleated RBC 0.04 H (0-0) K/uL Nucleated RBC % (auto) 1.2 % Hypogranular Neuts 2+ Dohle Bodies 1+ Sodium 140 (136-145) mmol/L Potassium 3.6 D (3.5-5.1) mmol/L Chloride 102 (98-107) mmol/L Carbon Dioxide 28 (21-32) mmol/L Anion Gap 10 (3-11) BUN 47 H (6-23) mg/dl Creatinine 1.65 H D (0.6-1.2) mg/dl Est Cr Clr Drug Dosing 35.6 ml/min Est GFR ( Amer) 35.1 ml/min Est GFR (Non-Af Amer) 30.3 ml/min BUN/Creatinine Ratio 28.5 H (10-20) Glucose 175 H (70-99(Fasting)) mg/dl POC Glucose (70-99) mg/dl Calcium 6.8 L (8.5-10.1) mg/dl Phosphorus 4.6 (2.5-4.9) mg/dl Magnesium 2.2 (1.7-2.4) mg/dl Random Cortisol mcg/dl Urine Color Urine Appearance (Clear) Urine pH (4.5-7.5) Ur Specific [place] (1.000-1.030) Urine Protein (Negative) Urine Glucose (UA) (Negative) Urine Ketones (Negative) Urine Blood (Negative) Urine Nitrite (Negative) Urine Bilirubin (Negative) Urine Urobilinogen (Negative) Ur Leukocyte Esterase (Negative) Urine WBC (Auto) (0-5) /hpf Urine RBC (Auto) (0-4) /hpf U Hyaline Cast (Auto) (0-5) /lpf U Epithel Cells (Auto) (0-5) /lpf Urine Bacteria (Auto) (Negative) Urine Yeast (None Prsent) Ur Random Sodium mmol/L Ur Random Urea Nitrogn Pending Nasal Screen MRSA (PCR) (Negative) Random Vancomycin (10-20) mcg/ml SARS-CoV-2 (PCR) (Negative) Influenza Type A (PCR) (Neg) Influenza Type B (PCR) (Neg) RSV (RT-PCR) (Neg) 07/17/22 07/17/22 07/16/22 Range/Units 00:10 00:10 19:40 WBC (4.8-10.8) K/ul RBC (3.93-5.22) M/uL Hgb (12.0-16.0) g/dl Hct (34.1-44.9) % MCV (80.0-100.0) fL MCH (25.0-34.0) pg MCHC (32.0-36.0) g/dL RDW Std Deviation (36.4-46.3) fL RDW Coeff of [place] (11.5-14.5) % Plt Count (130-400) K/uL MPV (9.4-12.3) fL Immature Gran % (Auto) % Neut % (Auto) % Lymph % (Auto) % Stephens % (Auto) % Eos % (Auto) % Baso % (Auto) % Neut # (Auto) (1.4-6.5) K/uL Lymph # (Auto) (1.2-3.4) K/uL Stephens # (Auto) (0.24-0.82) K/uL Eos # (Auto) (0-0.50) K/uL Baso # (Auto) (0-0.2) K/uL Immature Gran # (Auto) (0.00-0.02) K/uL Absolute Nucleated RBC (0-0) K/uL Nucleated RBC % (auto) % Hypogranular Neuts Dohle Bodies Sodium (136-145) mmol/L Potassium (3.5-5.1) mmol/L Chloride (98-107) mmol/L Carbon Dioxide (21-32) mmol/L Anion Gap (3-11) BUN (6-23) mg/dl Creatinine (0.6-1.2) mg/dl Est Cr Clr Drug Dosing ml/min Est GFR ( Amer) ml/min Est GFR (Non-Af Amer) ml/min BUN/Creatinine Ratio (10-20) Glucose (70-99(Fasting)) mg/dl POC Glucose (70-99) mg/dl Calcium (8.5-10.1) mg/dl Phosphorus (2.5-4.9) mg/dl Magnesium (1.7-2.4) mg/dl Random Cortisol mcg/dl Urine Color Yellow Urine Appearance Turbid A (Clear) Urine pH 7.0 (4.5-7.5) Ur Specific [place] 1.009 (1.000-1.030) Urine Protein Trace H (Negative) Urine Glucose (UA) Negative (Negative) Urine Ketones Negative (Negative) Urine Blood 2+ H (Negative) Urine Nitrite Negative (Negative) Urine Bilirubin Negative (Negative) Urine Urobilinogen Negative (Negative) Ur Leukocyte Esterase 3+ H (Negative) Urine WBC (Auto) >30 H (0-5) /hpf Urine RBC (Auto) 5-10 H (0-4) /hpf U Hyaline Cast (Auto) 1-5 (0-5) /lpf U Epithel Cells (Auto) 5-10 H (0-5) /lpf Urine Bacteria (Auto) 2+ H (Negative) Urine Yeast Budding A (None Prsent) Ur Random Sodium 77 mmol/L Ur Random Urea Nitrogn Nasal Screen MRSA (PCR) Negative (Negative) Random Vancomycin (10-20) mcg/ml SARS-CoV-2 (PCR) (Negative) Influenza Type A (PCR) (Neg) Influenza Type B (PCR) (Neg) RSV (RT-PCR) (Neg) 07/16/22 07/16/22 Range/Units 18:22 18:08 WBC (4.8-10.8) K/ul RBC (3.93-5.22) M/uL Hgb (12.0-16.0) g/dl Hct (34.1-44.9) % MCV (80.0-100.0) fL MCH (25.0-34.0) pg MCHC (32.0-36.0) g/dL RDW Std Deviation (36.4-46.3) fL RDW Coeff of [place] (11.5-14.5) % Plt Count (130-400) K/uL MPV (9.4-12.3) fL Immature Gran % (Auto) % Neut % (Auto) % Lymph % (Auto) % Stephens % (Auto) % Eos % (Auto) % Baso % (Auto) % Neut # (Auto) (1.4-6.5) K/uL Lymph # (Auto) (1.2-3.4) K/uL Stephens # (Auto) (0.24-0.82) K/uL Eos # (Auto) (0-0.50) K/uL Baso # (Auto) (0-0.2) K/uL Immature Gran # (Auto) (0.00-0.02) K/uL Absolute Nucleated RBC (0-0) K/uL Nucleated RBC % (auto) % Hypogranular Neuts Dohle Bodies Sodium (136-145) mmol/L Potassium (3.5-5.1) mmol/L Chloride (98-107) mmol/L Carbon Dioxide (21-32) mmol/L Anion Gap (3-11) BUN (6-23) mg/dl Creatinine (0.6-1.2) mg/dl Est Cr Clr Drug Dosing ml/min Est GFR ( Amer) ml/min Est GFR (Non-Af Amer) ml/min BUN/Creatinine Ratio (10-20) Glucose (70-99(Fasting)) mg/dl POC Glucose (70-99) mg/dl Calcium (8.5-10.1) mg/dl Phosphorus (2.5-4.9) mg/dl Magnesium (1.7-2.4) mg/dl Random Cortisol 3.23 mcg/dl Urine Color Urine Appearance (Clear) Urine pH (4.5-7.5) Ur Specific [place] (1.000-1.030) Urine Protein (Negative) Urine Glucose (UA) (Negative) Urine Ketones (Negative) Urine Blood (Negative) Urine Nitrite (Negative) Urine Bilirubin (Negative) Urine Urobilinogen (Negative) Ur Leukocyte Esterase (Negative) Urine WBC (Auto) (0-5) /hpf Urine RBC (Auto) (0-4) /hpf U Hyaline Cast (Auto) (0-5) /lpf U Epithel Cells (Auto) (0-5) /lpf Urine Bacteria (Auto) (Negative) Urine Yeast (None Prsent) Ur Random Sodium mmol/L Ur Random Urea Nitrogn Nasal Screen MRSA (PCR) (Negative) Random Vancomycin (10-20) mcg/ml SARS-CoV-2 (PCR) POSITIVE A* (Negative) Influenza Type A (PCR) Negative (Neg) Influenza Type B (PCR) Negative (Neg) RSV (RT-PCR) Negative (Neg) PG Care Time/CCT Total # of Minutes Spent Total Time Spent with Patient: Total time spent is greater than 50% in coordination of care (as documented) at patient's floor/unit and/or counseling patient: Coding Level of Care Code 48088 Subseq Hosp Care Lvl 3 Diagnoses Hypotension I95.9 Sepsis A41.9; R65.20; N17.9 Acute renal failure type: unspecified Sepsis acute organ dysfunction status: with acute organ dysfunction Sepsis type: sepsis due to unspecified organism Severe sepsis acute organ dysfunction type: acute renal failure Severe sepsis shock status: unspecified KAT (acute kidney injury) N17.9 Hypoxia R09.02 Elevated troponin R77.8 Lower extremity edema R60.0 COVID-19 U07.1 Anemia D64.9 Malignant 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 C50.919; C79.51 Hypertension I10 Anxiety and depression F41.9; F32.9 Colovesical fistula N32.1 Hypocalcemia E83.51 Moderate obstructive sleep apnea G47.33 Rheumatoid arthritis M06.9 Gout M10.9 Hyperlipidemia E78.5 (1) Sepsis Acute renal failure type: unspecified Sepsis acute organ dysfunction status: with acute organ dysfunction Sepsis type: sepsis due to unspecified organism Severe sepsis acute organ dysfunction type: acute renal failure Severe sepsis shock status: unspecified Qualified Code(s): A41.9 - Sepsis, unspecified organism; R65.20 - Severe sepsis without septic shock; N17.9 - Acute kidney failure, unspecified
[2022-07-17] MEDS ORDERED: ERTAPENEM SODIUM 500 MG in SYRINGE 0 ML IV SCH (18:00)
[2022-07-17] MEDS ORDERED: ERTAPENEM SODIUM 1,000 MG in SYRINGE 0 ML IV SCH (18:00)
[2022-07-17] MEDS ORDERED: STAT IV STA (19:33)
[2022-07-17] MEDS ORDERED: CALCIUM GLUCONATE 10% 1,000 MG in DEXTROSE 5% 50 ML IV ONE (19:45)
[2022-07-17] MEDS: dexAMETHasone 6 MG in SYRINGE 0 ML IV SCH (21:11)
[2022-07-17] MEDS: MEROPENEM 500 MG in SYRINGE 0 ML IV SCH (21:11)
[2022-07-17] MEDS: POLYETHYLENE (MIRALAX) 17 GM PACK PO SCH (21:13)
--- NOTE | 2022-07-17 21:22 | Ultrasound Report ---
ULTRASOUND BILATERAL LOWER EXTREMITY VENOUS CLINICAL HISTORY: Low extremity edema. COMPARISON STUDY: Right lower extremity venous ultrasound dated 10/27/2020. TECHNIQUE: Real-time, grayscale, and color Doppler sonography of the deep veins of the right and left lower extremity was performed from the inguinal crease to the calf. Compression and augmentation wer e utilized. FINDINGS: There is no sonographic evidence of deep venous thrombosis identified in the right or left lower extremity. The common femoral, superficial femoral, and popliteal veins are patent and normally compressible bilaterally. The greater saphenous vein and the profunda femoris vein at the junction w ith the common femoral vein are clear in both legs. The visualized calf veins are patent bilaterally. Soft tissue edema is noted in the calves. IMPRESSION: There is no sonographic evidence of deep venous thrombosis identified in the right or lef t lower extremity. ACT 112: Negative or not required by law. Electronically signed by: Trung Marques M.D. 07/17/2022 9:21 PM
[2022-07-18] MEDS: CHECK fentaNYL PATCH PLACEMENT SCH ×3 (00:29→16:04)
[2022-07-18] MEDS: MEROPENEM 500 MG in SYRINGE 0 ML IV SCH ×3 (03:58→20:59)
[2022-07-18 05:58] LABS: Hematocrit (blood only) 24.5 % (34.1-44.9); Hemoglobin 8.1 g/dl (12.0-16.0); Mean Platelet Volume 9.5 fL (9.4-12.3); Platelet Count 105 K/uL (130-400); White Blood Count 1.61 K/ul (4.8-10.8)
[2022-07-18 06:49] LABS: Immature Granulocytes # (auto) 0.02 K/uL (0.00-0.02); Immature Granulocytes % (auto) 1.2 %; Lymphocytes # (auto) 0.04 K/uL (1.2-3.4); Lymphocytes % (auto) 2.5 %; Mean Corpuscular Hemoglobin 31.8 pg (25.0-34.0); Mean Corpuscular Hgb Conc 33.1 g/dL (32.0-36.0); Mean Corpuscular Volume 96.1 fL (80.0-100.0); Monocytes # (auto) 0.02 K/uL (0.24-0.82); Monocytes % (auto) 1.2 %; Neutrophils # (auto) 1.53 K/uL (1.4-6.5); Neutrophils % (auto) 95.1 %; Nucleated RBC # (auto) 0.04 K/uL (0-0); Nucleated RBC % (auto) 2.5 %; Polychromasia 1+; RDW Coefficient of Variation 16.7 % (11.5-14.5); RDW Standard Deviation 58.4 fL (36.4-46.3); Red Blood Count 2.55 M/uL (3.93-5.22)
[2022-07-18 07:26] LABS: Albumin Globulin Ratio 1.3 (0.9-2); BUN Creatinine Ratio 36.4 (10-20); Bilirubin,Total 0.5 mg/dl (0.2-1.0); Calcium 7.1 mg/dl (8.5-10.1); Creatinine Clr Calc Pharmacy 74.4 ml/min; Est GFR (African American) 88.2 ml/min; Est GFR (Non-African American) 76.1 ml/min; Ferritin 789.3 ng/ml (8-388); Globulin 2.3 gm/dl (2.5-4.0); Magnesium 2.4 mg/dl (1.7-2.4); Phosphorus 2.5 mg/dl (2.5-4.9); Potassium 3.5 mmol/L (3.5-5.1); Total Protein 5.3 gm/dl (6.0-8.3); Troponin I High Sensitivity 9.9 pg/ml (0-14)
[2022-07-18] MEDS: ICU Protocol for HYPERglycemia SCH (08:26)
[2022-07-18] MEDS: CALCIUM CARBONATE 1250MG TAB PO SCH ×2 (08:42→16:22)
[2022-07-18] MEDS: allopurinoL 100 MG TAB PO SCH (08:43)
[2022-07-18] MEDS: GABAPENTIN 300 MG CAP PO SCH ×2 (08:43→16:22)
[2022-07-18] MEDS: ATORVASTATIN 10 MG TAB PO SCH (08:44)
[2022-07-18] MEDS: ENOXAPARIN INJ 40 MG/0.4 ML SYR SQ SCH (08:44)
[2022-07-18] MEDS: dexAMETHasone 6 MG in SYRINGE 0 ML IV SCH (08:44)
[2022-07-18] MEDS: DULoxetine HCL 60 MG CAP PO SCH (08:44)
[2022-07-18] MEDS: MULTIVITAMIN TAB PO SCH (08:45)
[2022-07-18] MEDS: PANTOprazole 40 MG TAB PO SCH ×2 (08:45→21:08)
[2022-07-18] MEDS: NYSTATIN POWDER 15GM BTL EXT SCH (08:45)
[2022-07-18] MEDS: POLYETHYLENE (MIRALAX) 17 GM PACK PO SCH ×2 (08:45→21:09)
[2022-07-18] MEDS: fentaNYL 50 MCG/HR TDSY TD SCH (08:49)
[2022-07-18] MEDS: oxyCODONE HCL 15 MG TABCR (OxyCONTIN) PO SCH ×2 (08:49→21:13)
--- NOTE | 2022-07-18 10:26 | Critical Care Progress Note ---
Date of Service July 18, 2022 Assessment & Plan (1) Septic shock: Plan: Reason Critically Ill: 72-year-old female with metastatic breast cancer to bone and currently undergoing chemotherapy presents to the ICU with hypotension requiring vasopressor support likely from septic shock versus adrenal insufficiency. Neuro - Encephalopathyresolved Cardiac - Shockresolved -Discontinued Decadron Respiratory - Hypoxiaimproved weaning nasal cannula. She does have history of GERMAN and requires CPAP. -PCR positive for COVID-19 although this was also positive on 06/19. Chest x-ray unremarkable GI - Recent acute diverticulitis with colovesicular fistula status post diverting colostomy performed by Dr. Villarreal on 06/21. Colostomy appears to be functioning properly. CT abdomen and pelvis with normal postsurgical changes. Continue PPI -Tolerating regular diet RENAL/LYTES - AKIimproving - Strict I's and O's ENDO - No history of diabetes or thyroid disease ICU hyperglycemic protocol HEME - Acute blood loss anemia following recent surgery Compounded by anemia secondary to antineoplastic agents -Patient clinically improved, no overt infection at this point, continue antibiotics -Consideration given to neupogen: IV it is reasonable to refrain at this time given that she is afebrile, had rapid clinical improvement, this could be attributed to intravascular volume depletion secondary to diuretic. Metastatic breast cancer with metastasis to bonesunderwent third round of chemo with Xgeva. -Continue fentanyl patch and oxycodone for pain management ID - Sepsispinpoint growth in urine, repeat incubating -Continue broad-spectrum antibiotics with vancomycin and ertapenem, continue for additional 24 hours LINES/IV ACCESS - Right subclavian port DVT PROPHYLAXIS - SCDs, Lovenox CODE STATUSDNR/DNI Discussed with the hospitalist service, patient is stable for downgrade out of ICU status. (2) Hypoxia: (3) COVID-19: (4) Acute UTI: (5) H/O abdominal surgery: (6) Lower extremity edema: (7) Malignant 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: (8) Chronic diastolic CHF (congestive heart failure): (9) Hyperlipidemia: (10) Anemia: (11) Moderate obstructive sleep apnea: (12) Anxiety and depression: (13) Rheumatoid arthritis: (14) Hypertension: Admission and Anticipated Discharge Date Admission Date: July 16, 2022 Subjective Patient is alert oriented and pleasant without complaint. We had a discussion with the patient and patient's family member via cell phone to update, patient having difficulty remembering all specifics and admits to becoming confused with current care. Physical Exam Physical Exam: General: Alert. nontoxic. Skin: Warm, dry, Head: Atraumatic Ears, nose, mouth and throat: airway patent Cardiovascular: Normal peripheral perfusion Respiratory: no respiratory distress Gastrointestinal: Non distended, colostomy bag had been changed this morning Musculoskeletal: No deformity Results & Data Results & Data ([facility]) Vital Signs (Past 12 Hours) Vital Signs Temp Pulse Resp BP Pulse Ox O2 Del Method O2 Flow Rate 07/18/22 08:40 89 22 147/91 H 96 Nasal Cannula 2 07/18/22 07:40 88 15 157/78 H 94 Nasal Cannula 2 07/18/22 07:26 86 24 148/78 H 95 Nasal Cannula 2 07/18/22 06:40 84 17 120/71 95 Nasal Cannula 2 07/18/22 07:00 Nasal Cannula 2 07/18/22 07:00 88 07/18/22 07:54 36.5 C 07/18/22 06:00 36.9 C 77 17 92 07/18/22 05:53 36.9 C 88 12 89 L 07/18/22 05:53 139/75 07/18/22 05:41 36.8 C 94 H 19 93 07/18/22 05:10 36.8 C 81 21 96 07/18/22 05:10 143/103 H 07/18/22 05:00 36.8 C 83 11 L 98 07/18/22 04:40 152/78 H 07/18/22 04:40 36.8 C 81 14 99 07/18/22 04:10 148/69 H 07/18/22 04:10 36.8 C 86 16 99 07/18/22 04:00 36.8 C 81 13 98 CPAP 07/18/22 03:40 128/74 07/18/22 03:40 36.7 C 81 13 97 07/18/22 03:10 127/69 07/18/22 03:10 36.7 C 78 14 96 07/18/22 03:00 36.6 C 80 14 94 07/18/22 02:40 136/71 07/18/22 02:40 36.6 C 83 19 99 07/18/22 02:10 36.7 C 83 15 100 07/18/22 02:00 36.8 C 79 14 98 07/18/22 01:40 139/98 07/18/22 01:40 36.8 C 75 14 97 07/18/22 01:10 123/75 07/18/22 01:10 36.8 C 78 13 92 07/18/22 01:00 36.8 C 77 14 95 07/18/22 00:40 141/78 H 07/18/22 00:40 36.8 C 77 14 96 07/18/22 00:10 36.8 C 79 14 95 07/18/22 00:10 136/67 07/18/22 00:00 36.9 C 79 14 94 CPAP 07/17/22 23:40 113/61 07/17/22 23:40 36.9 C 80 21 95 07/17/22 23:11 36.8 C 79 14 95 07/17/22 23:11 132/63 07/17/22 23:00 36.9 C 77 14 94 07/17/22 22:40 82/69 L 07/17/22 22:40 36.9 C 84 20 97 07/18/22 02:55 79 14 94 2 07/17/22 23:51 83 Critical Care Results & Data Vital Signs (Past 12 Hours) Vital Signs Temp Pulse Resp BP Pulse Ox O2 Del Method O2 Flow Rate 07/18/22 08:40 89 22 147/91 H 96 Nasal Cannula 2 07/18/22 07:40 88 15 157/78 H 94 Nasal Cannula 2 07/18/22 07:26 86 24 148/78 H 95 Nasal Cannula 2 07/18/22 06:40 84 17 120/71 95 Nasal Cannula 2 07/18/22 07:00 Nasal Cannula 2 07/18/22 07:00 88 07/18/22 07:54 36.5 C 07/18/22 06:00 36.9 C 77 17 92 07/18/22 05:53 36.9 C 88 12 89 L 07/18/22 05:53 139/75 07/18/22 05:41 36.8 C 94 H 19 93 07/18/22 05:10 36.8 C 81 21 96 07/18/22 05:10 143/103 H 07/18/22 05:00 36.8 C 83 11 L 98 07/18/22 04:40 152/78 H 07/18/22 04:40 36.8 C 81 14 99 07/18/22 04:10 148/69 H 07/18/22 04:10 36.8 C 86 16 99 07/18/22 04:00 36.8 C 81 13 98 CPAP 07/18/22 03:40 128/74 07/18/22 03:40 36.7 C 81 13 97 07/18/22 03:10 127/69 07/18/22 03:10 36.7 C 78 14 96 07/18/22 03:00 36.6 C 80 14 94 07/18/22 02:40 136/71 07/18/22 02:40 36.6 C 83 19 99 07/18/22 02:10 36.7 C 83 15 100 07/18/22 02:00 36.8 C 79 14 98 07/18/22 01:40 139/98 07/18/22 01:40 36.8 C 75 14 97 07/18/22 01:10 123/75 07/18/22 01:10 36.8 C 78 13 92 07/18/22 01:00 36.8 C 77 14 95 07/18/22 00:40 141/78 H 07/18/22 00:40 36.8 C 77 14 96 07/18/22 00:10 36.8 C 79 14 95 07/18/22 00:10 136/67 07/18/22 00:00 36.9 C 79 14 94 CPAP 07/17/22 23:40 113/61 07/17/22 23:40 36.9 C 80 21 95 07/17/22 23:11 36.8 C 79 14 95 07/17/22 23:11 132/63 07/17/22 23:00 36.9 C 77 14 94 07/17/22 22:40 82/69 L 07/17/22 22:40 36.9 C 84 20 97 07/18/22 02:55 79 14 94 2 07/17/22 23:51 83 Lab & Micro Results (Past 24 Hours) RBC 2.55 M/uL (3.93-5.22) L 07/18/22 WBC 1.61 K/ul (4.8-10.8) L 07/18/22 Hgb 8.1 g/dl (12.0-16.0) L 07/18/22 Hct 24.5 % (34.1-44.9) L 07/18/22 MCV 96.1 fL (80.0-100.0) 07/18/22 MCH 31.8 pg (25.0-34.0) 07/18/22 MCHC 33.1 g/dL (32.0-36.0) 07/18/22 RDW Standard Deviation 58.4 fL (36.4-46.3) H 07/18/22 RDW Coefficient of Variation 16.7 % (11.5-14.5) H 07/18/22 Plt Count 105 K/uL (130-400) L 07/18/22 MPV 9.5 fL (9.4-12.3) 07/18/22 Nucleated Red Blood Cells % (auto) 2.5 % 07/18 Nucleated RBC Absolute Count (auto) 0.04 K/uL (0-0) H 07/01 03/22 Neutrophils (%) (Auto) 95.1 % 07/18/22 Lymphocytes (%) (Auto) 2.5 % 07/18/22 Monocytes # (Auto) 0.02 K/uL (0.24-0.82) L 07/18/22 Eosinophils # (Auto) 0.00 K/uL (0-0.50) 07/18/22 Immature Granulocyte % (Auto) 1.2 % 07/18/22 Neutrophils # (Auto) 1.53 K/uL (1.4-6.5) 07/18/22 Lymphocytes # (Auto) 0.04 K/uL (1.2-3.4) L 07/18/22 Monocytes # (Auto) 0.02 K/uL (0.24-0.82) L 07/18/22 Eosinophils # (Auto) 0.00 K/uL (0-0.50) 07/18/22 Basophils # (Auto) 0.00 K/uL (0-0.2) 07/18/22 Immature Granulocyte # (Auto) 0.02 K/uL (0.00-0.02) 2 Hyposegmented Neutrophils 1+ 07/18/22 Polychromasia 1+ 07/18/22 Na 141 mmol/L (136-145) 07/18/22 K 3.5 mmol/L (3.5-5.1) 07/18/22 Cl 102 mmol/L (98-107) 07/18/22 CO2 34 mmol/L (21-32) H 07/18/22 Anion Gap 5 (3-11) 07/18/22 BUN 28 mg/dl (6-23) H 07/18/22 Creatinine 0.77 mg/dl (0.6-1.2) 07/18/22 Estimated GFR ( Amer) 88.2 ml/min 07/18/22 Estimated GFR (Non-Af Amer) 76.1 ml/min 07/18/22 BUN/Creatinine Ratio 36.4 (10-20) H 07/18/22 Glu 164 mg/dl (70-99(Fasting)) H 07/18/22 Ca 7.1 mg/dl (8.5-10.1) L 07/18/22 Phosphorus Level 2.5 mg/dl (2.5-4.9) 07/18/22 Total Bilirubin 0.5 mg/dl (0.2-1.0) 07/18/22 AST 15 U/L (13-39) 07/18/22 ALT 20 U/L (7-52) 07/18/22 Alkaline Phosphatase 88 U/L (34-104) 07/18/22 TP 5.3 gm/dl (6.0-8.3) L 07/18/22 Albumin 3.0 gm/dl (3.4-5.0) L 07/18/22 Globulin 2.3 gm/dl (2.5-4.0) L 07/18/22 Albumin/Globulin Ratio 1.3 (0.9-2) 07/18/22 Mg 2.4 mg/dl (1.7-2.4) 07/18/22 05:18 Calcium Level 7.1 mg/dl (8.5-10.1) L 07/18/22 05:18 Microbiology 07/16/22 18:25 Aerobic Blood Culture - Preliminary Blood No growth in Aerobic bottle after 24 hours. Anaerobic Blood Culture - Preliminary No growth in Anaerobic bottle after 24 hours. 07/16/22 18:09 Aerobic Blood Culture - Preliminary Blood No growth in Aerobic bottle after 24 hours. Anaerobic Blood Culture - Preliminary No growth in Anaerobic bottle after 24 hours. 07/16/22 19:40 Urine Culture - Preliminary Urine,Straight Cath Pin-point growth present, reincubating. Diagnostic Findings (Past 24 Hours) Venous Doppler Study 07/17/22 19:11 ULTRASOUND BILATERAL LOWER EXTREMITY VENOUS CLINICAL HISTORY: Low extremity edema. COMPARISON STUDY: Right lower extremity venous ultrasound dated 10/27/2020. TECHNIQUE: Real-time, grayscale, and color Doppler sonography of the deep veins of the right and left lower extremity was performed from the inguinal crease to the calf. Compression and augmentation were utilized. FINDINGS: There is no sonographic evidence of deep venous thrombosis identified in the right or left lower extremity. The common femoral, superficial femoral, and popliteal veins are patent and normally compressible bilaterally. The greater saphenous vein and the profunda femoris vein at the junction with the common femoral vein are clear in both legs. The visualized calf veins are patent bilaterally. Soft tissue edema is noted in the calves. IMPRESSION: There is no sonographic evidence of deep venous thrombosis identified in the right or left lower extremity. ACT 112: Negative or not required by law. Electronically signed by: Trung Marques M.D. 07/17/2022 9:21 PM I & O Totals 24 Hours 07/17/22 07/18/22 07/19/22 06:59 06:59 06:59 Intake Total 2884.91 / 2884.91 2480.663 / 2480.663 0 / 0 Output Total 2325 / 2325 2240 / 2240 350 / 350 Balance 559.91 / 559.91 240.663 / 240.663 -350 / -350 Cumulative 07/16/22 17:08 thru 07/18/22 08:24 Intake Total 5365.573 Output Total 4915 Balance 450.573 RT Ventilator Mngmt (Last Documented) Ventilator Ordered Settings Respiratory Rate 22 07/18/22 08:40 Ventilator - PT Measurements Respiratory Rate 22 Coding Level of Care Code 00852 Subseq Hosp Care Lvl 3 Diagnoses Septic shock A41.9; R65.21 Hypoxia R09.02 COVID-19 U07.1 Acute UTI N39.0 H/O abdominal surgery Z98.890 Lower extremity edema R60.0 Malignant 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 C50.919; C79.51 Chronic diastolic CHF (congestive heart failure) I50.32 Hyperlipidemia E78.5 Anemia D64.9 Moderate obstructive sleep apnea G47.33 Anxiety and depression F41.9; F32.9 Rheumatoid arthritis M06.9 Hypertension I10
--- NOTE | 2022-07-18 10:55 | Hospitalist Progress Note ---
Date of Service July 18, 2022 Assessment & Plan (1) Shock: Plan: presumed septic shock. likely element of addisonian/adrenal shock as well (had been on chronic prednisone for a long time for RA, then switched to dexamethasone in May 2022). s/p need for levophed - now weaned off. s/p fluid resuscitation - IV fluids now off. stress-dose steroids were employed - can likely wean to 4mg BID tonight. BPs robust at this time. source for septic shock - urine/UTI? pneumonia/lung? await blood/urine cultures. cont meropenem. cont vancomycin. (2) Chest tightness: Plan: Patient states this has been present for "some time" (days to weeks). Occurs with eating. Has associated dysphagia and odynophagia. Certainly at risk of candidal esophagitis given her immunocompromised state, chronic steroids, abx, etc. Will add nystatin solution 5cc swish and swallow. Certainly at risk of GERD/esophagitis - increase PPI to twice daily dosing. Add carafate 1gm QID. Previous imaging also shows a mod-large hiatal hernia which could be at play. Check EKG - r/o ischemia causing pain/tightness. Check CXR. If nondiagnostic - then CTA Chest to r/o PE, pneumonia, other pathology. (3) Sepsis: Plan: Presumed due to UTI in setting of #4. Cannot rule out pneumonia. Follow blood/urine cultures. Cont meropenem in meantime. (4) KAT (acute kidney injury): Plan: Creatinine 2.48 on admission. Resolved, now Cr <1. 2nd to #1 / sepsis-associated ATN. Continue holding all diuretics i.e. metolazone, bumetanide; continue holding olmesartan from home. Repeat BMP am. Cont betts. (5) Colovesical fistula: Plan: Secondary to severe sigmoid diverticulitis with perforation on previous admission resulting in need for diverting colostomy with Dr. Villarreal. I spoke with the [facility] resident medical officer today - he and several staff members noted urine in the colostomy several days ago concerning for ongoing fistulous tract. Will ask [facility] to see tomorrow. (6) Hypoxia: Plan: Acute hypoxic respiratory failure upon arrival with saturation of 77% on room air. Was initially placed on CPAP and now weaned to NC O2. Patient is POSITIVE for Covid-19 by PCR. Was positive initially on 06/29 and had some mild cough and wheezing at that time. Do not suspect a new COVID-19 infection at this time. When we tried to stop the O2 today she desatted into the 80s. CXR today with ? Left basilar infiltrate. In light of high risk of PE will obtain CTA chest. This will also give more information about lung parenchyma, etc. She is on chemotherapy/immunosuppressed Continue CPAP qHS [id number]. Await CTA chest PE protocol. (7) Antineoplastic chemotherapy induced pancytopenia: Plan: Pancytopenia on cbc today. Repeat CBC with diff in am. ANC borderline low. s/p chemotherapy last week c/o Dr Prakash, [facility] heme/onc. Cont IV meropenem while awaiting cultures. (8) Elevated troponin: Plan: 2nd to myocardial demand ischemia rather than true ACS. Chest tightness complaints unlikely to be ischemia. EKG today - my reading - NSR, no ST changes. (9) Lower extremity edema: Plan: dopplers of b/l legs negative for DVT. albumin is 3. TSH is wnl. most recent echo (10/2021) with preserved EF, 55-60%, but grade 2 diastolic dysfunction. given her KAT unable to provide diuresis at this time but KAT certainly could have attributed to the edema. diastolic dysfunction also a possible contributor. (10) COVID-19: Plan: initial diagnosis 06/29/22. thus, we are nearly 3 weeks out from her initial diagnosis. agree with Dr Neumann this is highly unlikely to be a recurrent COVID infection. PCR test likely positive from the prior illness in late June. will speak with infection control in am to see if airborne precautions can be d/c. (11) Anemia: Plan: Fe studies, B12, and folate with adequate stores. TSH wnl. Anemia 2nd to stage 4 breast ca and recent chemotherapy. Repeat cbc am. (12) Malignant 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: Plan: With numerous bony metastases. Follows with Dr. Adama Prakash of [facility] oncology. Has only completed 2 rounds of palliative chemotherapy thus far due to recurrent infections and hospitalizations-her most recent treatment was 07/15. Now with chemo-induced pancytopenia. She is s/p palliative XRT to her right hip and her left hip. She is on chronic fentanyl patch and OxyContin 30 Mg p.o. twice daily, and uses oxycodone IR prn. Continue bowel regimen. Resume gabapentin 300mg BID. Cont stress dose steroids but lower dose to 4mg BID x 2 days, then resume 4mg daily thereafter (basal dosing). CTA chest today to r/o PE. (13) Hypertension: Plan: With #1 at time of admission. Holding home Bumex, metolazone, olmesartan. BPs satisfactory today. (14) Anxiety and depression: Plan: Continue home duloxetine 60 mg p.o. once daily and lorazepam as needed (15) Hypocalcemia: Plan: even correcting for mild hypoalbuminemia her total calcium level is still low. replace per ICU protocol today. repeat level am. Xgeva (being used for breast ca bone mets) may be the culprit for the hypocalcemia. Recent phos level wnl. Check a vitamin D level in am. (16) Moderate obstructive sleep apnea: Plan: Continue CPAP at bedtime (17) Rheumatoid arthritis: Plan: Has been off of her hydroxychloroquine for some time due to recent infections Is now on dexamethasone daily for bony pain; previously took prednisone 5mg/day for long time for her RA; this was d/c in [place] of dexamethasone in May 2022 (18) Gout: Plan: cont allopurinol 100mg daily (19) Hyperlipidemia: Plan: Continue atorvastatin 10 mg daily (20) DVT prophylaxis: Plan: lovenox 40mg BID (21) Morbid obesity with BMI of 40.0-44.9, adult: Plan: BMI 43 Plan son updated at bedside care d/w ICU attending Dr Asya yanez d/w resident medical officer of [facility] who has been caring for the patient at [facility] ok to transfer from ICU to PCU status total care time today 70 min - complex care coordination Admission and Anticipated Discharge Date Admission Date: July 16, 2022 Subjective patient with uneventful night levophed has been off since yesterday BPs normal throughout the night betts with adequate UOP staff have not noted any urine in her colostomy bag I spoke with the resident medical officer of [facility], and he along with another provider and several nurses confirmed seeing urine in the colostomy bag patient c/o chest "tightness" when she eats only denies pain or tightness at other times denies feeling short of breath today has had dysphagia & odynophagia with solids only; liquid intake does not cause chest symptoms denies upper abdominal pain does have mild pain in the LLQ near her colostomy at one point she asks "what do you think about chemotherapy?" (for her breast ca) patient ate only fairly today; didn't like the breakfast food ate decent yesterday per son she admits her rehabbing at [facility] was only going fair due to weakness from all of the medical issues going on Review of Systems Review of Systems: gen - no fevers or chills cv - chest tightness but no pleuritic pain pulm - no cough GI - no nausea or emesis Physical Exam Physical Exam: gen - cushingnoid in appearance; NAD; pleasant skin - mild pallor; ecchymoses over abdominal wall mouth - no obvious thrush, MM slightly dry heart - RRR, s1 s2, no obvious murmur lungs - decreased BS bases, CTA b/l otherwise; no rales, no wheezing abd - soft, NT, ND, soft, colostomy present LLQ with minimal brown stool present ext - 1+ edema b/l legs, pulses 2+ b/l psych - awake, alert Results & Data Results & Data ([facility]) Vital Signs (Past 12 Hours) Vital Signs Temp Pulse Resp BP Pulse Ox O2 Del Method O2 Flow Rate 07/18/22 08:40 89 22 147/91 H 96 Nasal Cannula 2 07/18/22 07:40 88 15 157/78 H 94 Nasal Cannula 2 07/18/22 07:26 86 24 148/78 H 95 Nasal Cannula 2 07/18/22 06:40 84 17 120/71 95 Nasal Cannula 2 07/18/22 07:00 Nasal Cannula 2 07/18/22 07:00 88 07/18/22 07:54 36.5 C 07/18/22 06:00 36.9 C 77 17 92 07/18/22 05:53 36.9 C 88 12 89 L 07/18/22 05:53 139/75 07/18/22 05:41 36.8 C 94 H 19 93 07/18/22 05:10 36.8 C 81 21 96 07/18/22 05:10 143/103 H 07/18/22 05:00 36.8 C 83 11 L 98 07/18/22 04:40 152/78 H 07/18/22 04:40 36.8 C 81 14 99 07/18/22 04:10 148/69 H 07/18/22 04:10 36.8 C 86 16 99 07/18/22 04:00 36.8 C 81 13 98 CPAP 07/18/22 03:40 128/74 07/18/22 03:40 36.7 C 81 13 97 07/18/22 03:10 127/69 07/18/22 03:10 36.7 C 78 14 96 07/18/22 03:00 36.6 C 80 14 94 07/18/22 02:40 136/71 07/18/22 02:40 36.6 C 83 19 99 07/18/22 02:10 36.7 C 83 15 100 07/18/22 02:00 36.8 C 79 14 98 07/18/22 01:40 139/98 07/18/22 01:40 36.8 C 75 14 97 07/18/22 01:10 123/75 07/18/22 01:10 36.8 C 78 13 92 07/18/22 01:00 36.8 C 77 14 95 07/18/22 00:40 141/78 H 07/18/22 00:40 36.8 C 77 14 96 07/18/22 00:10 36.8 C 79 14 95 07/18/22 00:10 136/67 07/18/22 00:00 36.9 C 79 14 94 CPAP 07/17/22 23:40 113/61 07/17/22 23:40 36.9 C 80 21 95 07/17/22 23:11 36.8 C 79 14 95 07/17/22 23:11 132/63 07/17/22 23:00 36.9 C 77 14 94 07/18/22 02:55 79 14 94 2 07/17/22 23:51 83 Laboratory Results Laboratory Results - last 24 hr 07/17/22 07/18/22 07/18/22 21:50 05:18 05:18 WBC RBC Hgb Hct MCV MCH MCHC RDW Std Deviation RDW Coeff of [place] Plt Count MPV Immature Gran % (Auto) Neut % (Auto) Lymph % (Auto) [place] % (Auto) Eos % (Auto) Baso % (Auto) Neut # (Auto) Lymph # (Auto) [place] # (Auto) Eos # (Auto) Baso # (Auto) Immature Gran # (Auto) Absolute Nucleated RBC Nucleated RBC % (auto) Hyposegmented Neuts Polychromasia Sodium 141 Potassium 3.5 Chloride 102 Carbon Dioxide 34 H Anion Gap 5 BUN 28 H Creatinine 0.77 D Est Cr Clr Drug Dosing 74.4 Est GFR ( Amer) 88.2 Est GFR (Non-Af Amer) 76.1 BUN/Creatinine Ratio 36.4 H Glucose 164 H POC Glucose 173 H Calcium 7.1 L Phosphorus 2.5 D Magnesium 2.4 Ferritin 789.3 H Total Bilirubin 0.5 AST 15 ALT 20 Alkaline Phosphatase 88 Troponin I High Sens 9.9 D Total Protein 5.3 L Albumin 3.0 L Globulin 2.3 L Albumin/Globulin Ratio 1.3 Vitamin B12 Folate Random Vancomycin 13.3 07/18/22 07/18/22 07/18/22 05:18 05:19 07:30 WBC 1.61 L RBC 2.55 L Hgb 8.1 L Hct 24.5 L MCV 96.1 MCH 31.8 MCHC 33.1 RDW Std Deviation 58.4 H RDW Coeff of [place] 16.7 H Plt Count 105 L MPV 9.5 Immature Gran % (Auto) 1.2 Neut % (Auto) 95.1 Lymph % (Auto) 2.5 [place] % (Auto) 1.2 Eos % (Auto) 0.0 Baso % (Auto) 0.0 Neut # (Auto) 1.53 Lymph # (Auto) 0.04 L [place] # (Auto) 0.02 L Eos # (Auto) 0.00 Baso # (Auto) 0.00 Immature Gran # (Auto) 0.02 Absolute Nucleated RBC 0.04 H Nucleated RBC % (auto) 2.5 Hyposegmented Neuts 1+ Polychromasia 1+ Sodium Potassium Chloride Carbon Dioxide Anion Gap BUN Creatinine Est Cr Clr Drug Dosing Est GFR ( Amer) Est GFR (Non-Af Amer) BUN/Creatinine Ratio Glucose POC Glucose 174 H Calcium Phosphorus Magnesium Ferritin Total Bilirubin AST ALT Alkaline Phosphatase Troponin I High Sens Total Protein Albumin Globulin Albumin/Globulin Ratio Vitamin B12 927 H Folate 18.71 Random Vancomycin 07/18/22 11:24 WBC RBC Hgb Hct MCV MCH MCHC RDW Std Deviation RDW Coeff of [place] Plt Count MPV Immature Gran % (Auto) Neut % (Auto) Lymph % (Auto) [place] % (Auto) Eos % (Auto) Baso % (Auto) Neut # (Auto) Lymph # (Auto) [place] # (Auto) Eos # (Auto) Baso # (Auto) Immature Gran # (Auto) Absolute Nucleated RBC Nucleated RBC % (auto) Hyposegmented Neuts Polychromasia Sodium Potassium Chloride Carbon Dioxide Anion Gap BUN Creatinine Est Cr Clr Drug Dosing Est GFR ( Amer) Est GFR (Non-Af Amer) BUN/Creatinine Ratio Glucose POC Glucose 179 H Calcium Phosphorus Magnesium Ferritin Total Bilirubin AST ALT Alkaline Phosphatase Troponin I High Sens Total Protein Albumin Globulin Albumin/Globulin Ratio Vitamin B12 Folate Random Vancomycin Diagnostic Findings 07/16/22 19:40 Urine Culture - Final Urine,Straight Cath More than three types of organisms present, all high counts mixed probable skin kana - No further identifications or sensitivities to follow. blood cultures negative to date PG Care Time/CCT Total # of Minutes Spent Total Time Spent with Patient: Total time spent is greater than 50% in coordination of care (as documented) at patient's floor/unit and/or counseling patient: Prolonged Care Time Prolonged Care Time: Yes Total Prolonged Care Time: 70 Coding Level of Care Code 58198 Subseq Hosp Care Lvl 3 (25 - SIGNIFICANT, SEPARATELY IDENTIFIABLE ) Diagnoses Shock R57.9 Chest tightness R07.89 Sepsis A41.9; R65.20; N17.9 Acute renal failure type: unspecified Sepsis acute organ dysfunction status: with acute organ dysfunction Sepsis type: sepsis due to unspecified organism Severe sepsis acute organ dysfunction type: acute renal failure Severe sepsis shock status: unspecified KAT (acute kidney injury) N17.9 Colovesical fistula N32.1 Hypoxia R09.02 Antineoplastic chemotherapy induced pancytopenia D61.810; T45.1X5A Elevated troponin R77.8 Lower extremity edema R60.0 COVID-19 U07.1 Anemia D64.9 Malignant 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 C50.919; C79.51 Hypertension I10 Anxiety and depression F41.9; F32.9 Hypocalcemia E83.51 Moderate obstructive sleep apnea G47.33 Rheumatoid arthritis M06.9 Gout M10.9 Hyperlipidemia E78.5 DVT prophylaxis Z29.9 Morbid obesity with BMI of 40.0-44.9, adult E66.01; Z68.41 Additional Codes Prolonged Care Time - Prolonged Care Time: Yes ([id number]) (1) Sepsis Acute renal failure type: unspecified Sepsis acute organ dysfunction status: with acute organ dysfunction Sepsis type: sepsis due to unspecified organism Severe sepsis acute organ dysfunction type: acute renal failure Severe sepsis shock status: unspecified Qualified Code(s): A41.9 - Sepsis, unspecified organism; R65.20 - Severe sepsis without septic shock; N17.9 - Acute kidney failure, unspecified
[2022-07-18] MEDS: CHOLECALCIFEROL 5,000 UNITS 125 MCG TAB PO SCH (11:10)
--- NOTE | 2022-07-18 11:20 | Pharmacy Report ---
Pharmacy PK ABX Note - Date of Service July 18, 2022 - Assessment and Plan Assessment * 72 year old F with metastatic breast cancer on chemotherapy receiving vancomycin and meropenem for treatment of septic shock with multiple possible sources (UTI vs. GI vs. other) * Blood and urine cultures pending. MRSA nasal (-). No longer requiring pressor support. * KAT resolving/resolved (SCr 2.48 -->1.65--> 0.77 mg/dL, baseline ~ 0.9) Plan Vancomycin * SCr back to baseline - OK to tentatively schedule vancomycin at this time * Vancomycin 1250 mg IV q12h * The above is anticipated to achieve a target AUC of 400-600 mg/L.hr * Random level may be needed as early as tomorrow AM, but could be deferred another day if renal function remains stable Pharmacy will continue to follow and will adjust dose/frequency as necessary. Thank you.
[2022-07-18] MEDS: NYSTATIN SUSP 500,000 U/5 ML UDC PO SCH ×2 (12:12→16:22)
[2022-07-18] MEDS: VANCOMYCIN HCL 1,250 MG in SODIUM CHLORIDE 0.9% 250 ML IV SCH ×2 (12:12→21:43)
[2022-07-18] MEDS: SUCRALFATE 1 GM/10 ML UDC PO SCH ×3 (12:12→21:11)
[2022-07-18] MEDS: HEPARIN 100 UNIT/ML 5ML FLUSH FLUSH PRN (15:31)
--- NOTE | 2022-07-18 17:12 | XRay Report ---
XR chest 1V portable CLINICAL HISTORY: hypoxia, pneumonia? other? TECHNIQUE: Single frontal radiograph of the chest was obtained. Comparison: Comparison is made to chest radiograph 07/17/2022 FINDINGS: Right portacatheter is seen. Cardiomegaly is noted. The aortic arch is calcified. Left lung base airs pace opacity is seen. No pneumothorax is seen, pleural effusions cannot be excluded. A hiatal hernia is seen. IMPRESSION: Left retrocardiac airspace opacity may represent atelectasis, pneumonia, and/or aspiration. Stable ca rdiomegaly. A left pleural effusion cannot be excluded. ACT 112: Negative or not required by law. Electronically signed by: Benja Jackson M.D. 07/18/2022 5:09 PM
[2022-07-18] MEDS ORDERED: OPTIRAY 320 500ml IV ONE (18:26)
[2022-07-18] MEDS ORDERED: Heparin IV Adult Wt-Based Standard WITH Bolus Protocol IV STA (20:00)
--- NOTE | 2022-07-18 20:39 | CT Scan Report ---
CT angio chest PE protocol CLINICAL HISTORY: recentCOVID, stage 4 cancer, hypoxia;r/o PE TECHNIQUE: Multidetector row helical CT of the chest was performed with angiographic protocol. Steinberg l and sagittal reformations were obtained. Coronal and sagittal MIPS were obtained from the axial kandy a set and were submitted for review. Automated dose lowering techniques and/or adjustment according to patient size were utilized for this exam. CT DOSE: 848.37 mGy.cm Comparison: Comparison is made to CTA chest 04/20/2022 FINDINGS: Lungs and pleura: Left pleural effusion is seen with underlying atelectasis. Heart and pericardium: Cardiomegaly seen without evidence of right heart strain. Vessels: Occlusive segmental and subsegmental emboli are seen in the right lung. Nonocclusive right u pper and lower lobar pulmonary emboli. Mediastinum and gail: Unremarkable. Chest wall and lower neck: Left breast mass is similar in appearance to prior exam. Abdomen: A hiatal hernia is noted. Bones: Multilevel degenerative changes are seen. There are numerous sclerotic bony lesions compatible with metastatic disease. IMPRESSION: 1. Multifocal lobar, segmental, and subsegmental pulmonary emboli without evidence of right heart st rain. 2. Small left pleural effusion. Lower lobe atelectasis, left greater than right. 3. Multifocal sclerotic foci in the bones compatible with metastatic disease. Findings were discussed with the patient's physician Dr. Ballard at the time of dictation. ACT 112: Negative or not required by law. Electronically signed by: Benja Jackson M.D. 07/18/2022 8:37 PM
[2022-07-18] MEDS ORDERED: HEPARIN SOD (PORCINE) 1000 UNIT/ML IV ONE (21:00)
--- NOTE | 2022-07-18 21:05 | Electrocardiogram Report ---
Test Reason : Blood Pressure : / mmHG Vent. Rate : 095 BPM Atrial Rate : 095 BPM P-R Int : 180 ms QRS Dur : 086 ms QT Int : 372 ms P-R-T Axes : 022 005 009 degrees QTc Int : 467 ms Poor data quality, interpretation may be adversely affected Normal sinus rhythm Normal ECG When compared with ECG of 18-MAY-2022 16:37, No significant change was found Confirmed by Jose C Garcia ([id number]) on 07/18/2022 9:04:56 PM Referred By: [facility] Confirmed By:Jose C Garcia
[2022-07-18] MEDS: dexAMETHasone 4 MG in SYRINGE 0 ML IV SCH (21:07)
[2022-07-18] MEDS: HEPARIN SODIUM/DEXTROSE 25,000 UNITS/500 ML BAG IV SCH (21:07)
[2022-07-18 22:28] LABS: Basophils # (auto) 0.01 K/uL (0-0.2); Basophils % (auto) 0.9 %; Hemoglobin 8.3 g/dl (12.0-16.0); Immature Granulocytes # (auto) 0.02 K/uL (0.00-0.02); Immature Granulocytes % (auto) 1.7 %; Lymphocytes # (auto) 0.05 K/uL (1.2-3.4); Lymphocytes % (auto) 4.3 %; Mean Corpuscular Hemoglobin 31.7 pg (25.0-34.0); Mean Corpuscular Hgb Conc 33.2 g/dL (32.0-36.0); Mean Corpuscular Volume 95.4 fL (80.0-100.0); Monocytes # (auto) 0.02 K/uL (0.24-0.82); Monocytes % (auto) 1.7 %; Neutrophils # (auto) 1.06 K/uL (1.4-6.5); Neutrophils % (auto) 91.4 %; Nucleated RBC # (auto) 0.04 K/uL (0-0); Nucleated RBC % (auto) 3.4 %; Platelet Count 124 K/uL (130-400); RBC Morphology Unremarkable; RDW Coefficient of Variation 16.6 % (11.5-14.5); RDW Standard Deviation 57.6 fL (36.4-46.3); Red Blood Count 2.62 M/uL (3.93-5.22); White Blood Count 1.16 K/ul (4.8-10.8)
[2022-07-19 00:08] LABS: Partial Thromboplastin Ratio > 5.1
[2022-07-19] MEDS: NYSTATIN SUSP 500,000 U/5 ML UDC PO SCH ×5 (00:10→21:27)
[2022-07-19] MEDS: NYSTATIN POWDER 15GM BTL EXT SCH ×3 (00:10→23:26)
[2022-07-19] MEDS: CHECK fentaNYL PATCH PLACEMENT SCH ×3 (00:11→16:03)
[2022-07-19 00:15] LABS: Partial Thromboplastin Time > 139.0 Seconds (21.0-31.0)
[2022-07-19 03:22] LABS: Partial Thromboplastin Ratio 1.4; Partial Thromboplastin Time 37.4 Seconds (21.0-31.0)
[2022-07-19] MEDS: MEROPENEM 500 MG in SYRINGE 0 ML IV SCH ×4 (03:32→21:27)
--- NOTE | 2022-07-19 06:10 | Electrocardiogram Report ---
Test Reason : Blood Pressure : / mmHG Vent. Rate : 084 BPM Atrial Rate : 084 BPM P-R Int : 196 ms QRS Dur : 096 ms QT Int : 376 ms P-R-T Axes : 029 014 020 degrees QTc Int : 444 ms Normal sinus rhythm Nonspecific ST abnormality Abnormal ECG When compared with ECG of 16-JUL-2022 17:23, (unconfirmed) No significant change was found Confirmed by Jose C Garcia ([id number]) on 07/19/2022 6:09:47 AM Referred By: [facility] Confirmed By:Jose C Garcia
[2022-07-19 06:49] LABS: BUN Creatinine Ratio 37.1 (10-20); Calcium 7.6 mg/dl (8.5-10.1); Creatinine Clr Calc Pharmacy 92.8 ml/min; Est GFR (Non-African American) 88.8 ml/min; Magnesium 2.3 mg/dl (1.7-2.4); Phosphorus 2.2 mg/dl (2.5-4.9); Potassium 3.7 mmol/L (3.5-5.1)
[2022-07-19 06:56] LABS: Hematocrit (blood only) 26.4 % (34.1-44.9); Hemoglobin 8.8 g/dl (12.0-16.0); Mean Corpuscular Hemoglobin 31.5 pg (25.0-34.0); Mean Corpuscular Hgb Conc 33.3 g/dL (32.0-36.0); Mean Corpuscular Volume 94.6 fL (80.0-100.0); Mean Platelet Volume 9.7 fL (9.4-12.3); Nucleated RBC # (auto) 0.05 K/uL (0-0); Platelet Count 117 K/uL (130-400); RDW Coefficient of Variation 16.7 % (11.5-14.5); RDW Standard Deviation 57.6 fL (36.4-46.3); Red Blood Count 2.79 M/uL (3.93-5.22); White Blood Count 1.01 K/ul (4.8-10.8)
[2022-07-19 07:30] LABS: Polychromasia 1+
[2022-07-19 07:33] LABS: Basophils # (auto) 0.01 K/uL (0-0.2); Immature Granulocytes # (auto) 0.05 K/uL (0.00-0.02); Lymphocytes # (auto) 0.05 K/uL (1.2-3.4); Monocytes # (auto) 0.01 K/uL (0.24-0.82); Neutrophils # (auto) 0.89 K/uL (1.4-6.5)
[2022-07-19] MEDS: SUCRALFATE 1 GM/10 ML UDC PO SCH ×4 (08:24→21:27)
[2022-07-19] MEDS: CALCIUM CARBONATE 1250MG TAB PO SCH ×2 (08:24→16:13)
[2022-07-19] MEDS: allopurinoL 100 MG TAB PO SCH (08:25)
[2022-07-19] MEDS: ATORVASTATIN 10 MG TAB PO SCH (08:25)
[2022-07-19] MEDS: dexAMETHasone 4 MG in SYRINGE 0 ML IV SCH ×2 (08:25→21:26)
[2022-07-19] MEDS: GABAPENTIN 300 MG CAP PO SCH ×2 (08:25→16:13)
[2022-07-19] MEDS: DULoxetine HCL 60 MG CAP PO SCH (08:26)
[2022-07-19] MEDS: MULTIVITAMIN TAB PO SCH (08:26)
[2022-07-19] MEDS: PANTOprazole 40 MG TAB PO SCH ×2 (08:27→21:45)
[2022-07-19] MEDS: POLYETHYLENE (MIRALAX) 17 GM PACK PO SCH ×2 (08:27→21:26)
[2022-07-19] MEDS: oxyCODONE HCL 15 MG TABCR (OxyCONTIN) PO SCH ×2 (08:28→21:26)
[2022-07-19] MEDS: POT PHOSPHATE MONOBASIC W/ SOD TAB PO SCH ×4 (10:16→21:27)
[2022-07-19] MEDS: CHOLECALCIFEROL 5,000 UNITS 125 MCG TAB PO SCH (10:16)
[2022-07-19 10:18] LABS: Partial Thromboplastin Ratio 1.6; Partial Thromboplastin Time 43.1 Seconds (21.0-31.0)
--- NOTE | 2022-07-19 10:55 | Hospitalist Progress Note ---
Date of Service July 19, 2022 Assessment & Plan (1) Pulmonary emboli: Plan: detected CTA chest on 07/18. moderate PE burden. recent b/l LE dopplers neg for residual DVT. heparin drip initiated 07/18. can likely transition to PO Eliquis on 07/20 (10mg BID x 7 days, then 5mg BID thereafter). risk factors for PE - recent COVID infection, stage 4 cancer, immobility, etc. (2) Colovesical fistula: Plan: Secondary to severe sigmoid diverticulitis with perforation on previous admission resulting in need for diverting colostomy with Dr. Villarreal. I spoke with the [facility] medical scientific officer 07/18 - he and several staff members noted urine in the colostomy several days ago concerning for ongoing fistulous tract. No definitive urine in the ostomy since admission but [id number] it is suspected. [facility] [place] today - at this time no surgical intervention advised given the complexity of her medical problems, the complexity of the type of surgery she would need to rectify the fistula, ongoing active chemo for her cancer, etc. (3) Shock: Plan: presumed septic shock at time of admission. likely element of addisonian/adrenal shock as well (had been on chronic prednisone for a long time for RA, then switched to dexamethasone in May 2022). s/p need for levophed - now weaned off. s/p fluid resuscitation - IV fluids now off. stress-dose steroids were employed - now weaned to 4mg BID. BPs robust at this time. although septic shock suspected blood/urine cultures are negative. further, CTA chest did not show any pneumonia. Her Acute PEs may have contributed as well to her hypotension. (4) Chest tightness: Plan: May have been 2nd to acute PEs. May have been 2nd to esophageal/gastric discomfort (has large hiatal hernia, etc). Tightness resolved. No evidence of ACS; EKGS stable. Continue PPI + carafate for GI source. Continue heparin drip for PEs. (5) Sepsis: Plan: Presumed due to UTI in setting of #4. However, blood/urine cx's negative. No pneumonia on CTA chest. Stop IV vanco. Cont meropenem 1 more day, then can decide whether to simply treat her for presumptive UTI OR stop all abx therapy. Will decide tomorrow on 07/20. Follow blood cultures. (6) KAT (acute kidney injury): Plan: Creatinine 2.48 on admission. Resolved, now Cr <1. Continue holding all diuretics i.e. metolazone, bumetanide; continue holding olmesartan from home. Repeat BMP am. Cont betts. (7) Hypoxia: Plan: Acute hypoxic respiratory failure upon arrival with saturation of 77% on room air. Was initially placed on CPAP, then weaned to NC O2, and now to RA. Likely due to acute PEs as the cause. Cont heparin drip. No evidence of pneumonia or pulmonary edema on imaging. (8) Antineoplastic chemotherapy induced pancytopenia: Plan: Pancytopenia remains with neutropenia. Bowler neutropenic precautions. [place] likely a few days away. Repeat CBC with diff in am. s/p chemotherapy last week c/o Dr Prakash, [facility] heme/onc. Cont IV meropenem while awaiting blood cultures. (9) Elevated troponin: Plan: 2nd to myocardial demand ischemia rather than true ACS. Demand ischemia 2nd to acute PEs, shock, etc. (10) Lower extremity edema: Plan: dopplers of b/l legs negative for DVT but probably had DVTs at some point given the PEs discovered. albumin is 3 - may be contributing. TSH is wnl. most recent echo (10/2021) with preserved EF, 55-60%, but grade 2 diastolic dysfunction. given her KAT unable to provide diuresis at this time but KAT certainly could have attributed to the edema. diastolic dysfunction also a possible contributor. edema looks better to me today. (11) COVID-19: Plan: initial diagnosis 06/29/22. thus, we are nearly 3 weeks out from her initial diagnosis. I corresponded with infection control this am - we can remove COVID/airborne precautions. (12) Anemia: Plan: Fe studies, B12, and folate with adequate stores. TSH wnl. Anemia 2nd to stage 4 breast ca and recent chemotherapy. Repeat cbc am. (13) Malignant 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: Plan: With numerous bony metastases. Follows with Dr. Adama Prakash of [facility] oncology. Has only completed 2 rounds of palliative chemotherapy thus far due to recurrent infections and hospitalizations-her most recent treatment was 07/15. Now with chemo-induced pancytopenia. She is s/p palliative XRT to her right hip and her left hip. She is on chronic fentanyl patch and OxyContin 30 Mg p.o. twice daily, and uses oxycodone IR prn. Continue bowel regimen. Resume gabapentin 300mg BID. Cont stress dose steroids but lowered the dose to 4mg BID x 2 days, then resume 4mg daily thereafter (basal dosing). (14) Hypertension: Plan: With #1 at time of admission. Holding home Bumex, metolazone, olmesartan. BPs remain satisfactory today. (15) Anxiety and depression: Plan: Continue home duloxetine 60 mg p.o. once daily and lorazepam as needed (16) Hypocalcemia: Plan: phos level minimally low - supplement 25-OH vit D level wnl total calcium level is better today - remains on PO supplementation trend the level daily (17) Moderate obstructive sleep apnea: Plan: Continue CPAP at bedtime (18) Rheumatoid arthritis: Plan: Has been off of her hydroxychloroquine for some time due to recent infections Is now on dexamethasone daily for bony pain; previously took prednisone 5mg/day for long time for her RA; this was d/c in [place] of dexamethasone in May 2022 (19) Gout: Plan: cont allopurinol 100mg daily (20) Hyperlipidemia: Plan: Continue atorvastatin 10 mg daily (21) DVT prophylaxis: Plan: stopped lovenox now on heparin drip for #1 above (22) Morbid obesity with BMI of 40.0-44.9, adult: Plan: BMI 43-44 Plan son updated at bedside 07/18/22 [id number] updated extensively by phone on 07/19/22 patient remains in PCU status obtain PT/OT jeny Admission and Anticipated Discharge Date Admission Date: July 16, 2022 Subjective patient with uneventful night O2 has been weaned off started on heparin overnight for PEs and no bleeding issues since initiation during the visit she was resting comfortably in bed we discussed the current issues going on and several times she said "I just feel so confused" she appeared very overwhelmed and was tearful/crying support given to her and reassurance she reported that the "chest tightness" spells have resolved denies any new complaints Review of Systems Review of Systems: gen - tired/fatigued cv - no chest pain/tightness pulm - no dyspnea GI - no abd pain/nausea/emesis; ostomy this am - urine in bag per staff? - betts in place, clear yellow urine present Physical Exam Physical Exam: gen - cushingnoid in appearance; NAD; pleasant; tearful; forgetful skin - mild pallor; ecchymoses over abdominal wall mouth - no obvious thrush, MMM heart - RRR, s1 s2, no obvious murmur lungs - decreased BS Left base, CTA b/l otherwise; no rales, no wheezing abd - soft, NT, ND, soft, colostomy present LLQ with formed brown stool present; no urine seen ext - <1+ edema b/l legs, pulses 2+ b/l psych - awake, alert but tearful; despite feeling forgetful she knew the place, time (year, month), etc Results & Data Results & Data ([facility]) Vital Signs (Past 12 Hours) Vital Signs Temp Pulse Pulse Resp BP BP Pulse Ox 07/19/22 07:41 36.8 C 85 17 162/93 H 93 07/19/22 08:00 85 07/19/22 05:41 158/98 H 07/19/22 05:41 85 16 98 07/19/22 05:00 76 13 91 07/19/22 04:00 81 23 93 07/19/22 04:27 79 21 95 07/19/22 03:41 77 12 98 07/19/22 03:41 160/87 H 07/19/22 03:00 86 13 88 L 07/19/22 02:00 78 14 91 07/19/22 01:40 82 14 88 L 07/19/22 01:40 153/84 H 07/19/22 01:00 80 14 91 07/19/22 00:00 83 14 92 07/18/22 23:41 140/90 07/18/22 23:41 79 14 92 07/18/22 23:00 81 14 91 07/18/22 23:39 O2 Del Method O2 Flow Rate 07/19/22 07:41 Room Air 07/19/22 08:00 07/19/22 05:41 07/19/22 05:41 Room Air 07/19/22 05:00 07/19/22 04:00 07/19/22 04:27 2 07/19/22 03:41 CPAP 07/19/22 03:41 07/19/22 03:00 07/19/22 02:00 07/19/22 01:40 CPAP 07/19/22 01:40 07/19/22 01:00 07/19/22 00:00 CPAP 07/18/22 23:41 07/18/22 23:41 07/18/22 23:00 07/18/22 23:39 Nasal Cannula 2 Laboratory Results Laboratory Results - last 24 hr 07/18/22 07/18/22 07/18/22 11:24 20:52 20:52 WBC 1.16 L RBC 2.62 L Hgb 8.3 L Hct 25.0 L MCV 95.4 MCH 31.7 MCHC 33.2 RDW Std Deviation 57.6 H RDW Coeff of [place] 16.6 H Plt Count 124 L MPV 9.0 L Immature Gran % (Auto) 1.7 Neut % (Auto) 91.4 Lymph % (Auto) 4.3 [place] % (Auto) 1.7 Eos % (Auto) 0.0 Baso % (Auto) 0.9 Neut # (Auto) 1.06 L Lymph # (Auto) 0.[address] [place] # (Auto) 0.02 L Eos # (Auto) 0.00 Baso # (Auto) 0.01 Immature Gran # (Auto) 0.02 Absolute Nucleated RBC 0.04 H Nucleated RBC % (auto) 3.4 Hyposegmented Neuts Blood Smear Review RBC Morphology Unremarkable Polychromasia PT Cancelled INR Cancelled APTT Cancelled PTT Ratio Cancelled Sodium Potassium Chloride Carbon Dioxide Anion Gap BUN Creatinine Est Cr Clr Drug Dosing Est GFR ( Amer) Est GFR (Non-Af Amer) BUN/Creatinine Ratio Glucose POC Glucose 179 H Calcium Phosphorus Magnesium 25-OH Vitamin D Total A. phagocytophilum DNA 07/18/22 07/19/22 07/19/22 23:25 02:27 05:36 WBC 1.01 L RBC 2.79 L Hgb 8.8 L Hct 26.4 L MCV 94.6 MCH 31.5 MCHC 33.3 RDW Std Deviation 57.6 H RDW Coeff of [place] 16.7 H Plt Count 117 L MPV 9.7 Immature Gran % (Auto) 5.0 Neut % (Auto) 88.0 Lymph % (Auto) 5.0 [place] % (Auto) 1.0 Eos % (Auto) 0.0 Baso % (Auto) 1.0 Neut # (Auto) 0.89 L* Lymph # (Auto) 0.[address] # (Auto) 0.01 L Eos # (Auto) 0.00 Baso # (Auto) 0.01 Immature Gran # (Auto) 0.05 H Absolute Nucleated RBC 0.05 H Nucleated RBC % (auto) 5.0 Hyposegmented Neuts 1+ Blood Smear Review RBC Morphology Polychromasia 1+ PT 11.0 INR 1.0 APTT > 139.0 H* 37.4 H PTT Ratio > 5.1 1.4 Sodium Potassium Chloride Carbon Dioxide Anion Gap BUN Creatinine Est Cr Clr Drug Dosing Est GFR ( Amer) Est GFR (Non-Af Amer) BUN/Creatinine Ratio Glucose POC Glucose Calcium Phosphorus Magnesium 25-OH Vitamin D Total A. phagocytophilum DNA 07/19/22 07/19/22 07/19/22 05:36 05:36 05:36 WBC RBC Hgb Hct MCV MCH MCHC RDW Std Deviation RDW Coeff of [place] Plt Count MPV Immature Gran % (Auto) Neut % (Auto) Lymph % (Auto) [place] % (Auto) Eos % (Auto) Baso % (Auto) Neut # (Auto) Lymph # (Auto) [place] # (Auto) Eos # (Auto) Baso # (Auto) Immature Gran # (Auto) Absolute Nucleated RBC Nucleated RBC % (auto) Hyposegmented Neuts Blood Smear Review RBC Morphology Polychromasia PT INR APTT PTT Ratio Sodium 141 Potassium 3.7 Chloride 101 Carbon Dioxide 34 H Anion Gap 6 BUN 23 Creatinine 0.62 Est Cr Clr Drug Dosing 92.8 Est GFR ( Amer) 103.0 Est GFR (Non-Af Amer) 88.8 BUN/Creatinine Ratio 37.1 H Glucose 177 H POC Glucose Calcium 7.6 L Phosphorus 2.2 L Magnesium 2.3 25-OH Vitamin D Total 44.8 A. phagocytophilum DNA Pending 07/19/22 09:55 WBC RBC Hgb Hct MCV MCH MCHC RDW Std Deviation RDW Coeff of [place] Plt Count MPV Immature Gran % (Auto) Neut % (Auto) Lymph % (Auto) [place] % (Auto) Eos % (Auto) Baso % (Auto) Neut # (Auto) Lymph # (Auto) [place] # (Auto) Eos # (Auto) Baso # (Auto) Immature Gran # (Auto) Absolute Nucleated RBC Nucleated RBC % (auto) Hyposegmented Neuts Blood Smear Review RBC Morphology Polychromasia PT INR APTT 43.1 H PTT Ratio 1.6 Sodium Potassium Chloride Carbon Dioxide Anion Gap BUN Creatinine Est Cr Clr Drug Dosing Est GFR ( Amer) Est GFR (Non-Af Amer) BUN/Creatinine Ratio Glucose POC Glucose Calcium Phosphorus Magnesium 25-OH Vitamin D Total A. phagocytophilum DNA PG Care Time/CCT Total # of Minutes Spent Total Time Spent with Patient: Total time spent is greater than 50% in coordination of care (as documented) at patient's floor/unit and/or counseling patient: Coding Level of Care Code 05132 Subseq Hosp Care Lvl 3 Diagnoses Pulmonary emboli I26.99 Colovesical fistula N32.1 Shock R57.9 Chest tightness R07.89 Sepsis A41.9; R65.20; N17.9 Acute renal failure type: unspecified Sepsis acute organ dysfunction status: with acute organ dysfunction Sepsis type: sepsis due to unspecified organism Severe sepsis acute organ dysfunction type: acute renal failure Severe sepsis shock status: unspecified KAT (acute kidney injury) N17.9 Hypoxia R09.02 Antineoplastic chemotherapy induced pancytopenia D61.810; T45.1X5A Elevated troponin R77.8 Lower extremity edema R60.0 COVID-19 U07.1 Anemia D64.9 Malignant 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 C50.919; C79.51 Hypertension I10 Anxiety and depression F41.9; F32.9 Hypocalcemia E83.51 Moderate obstructive sleep apnea G47.33 Rheumatoid arthritis M06.9 Gout M10.9 Hyperlipidemia E78.5 DVT prophylaxis Z29.9 Morbid obesity with BMI of 40.0-44.9, adult E66.01; Z68.41 (1) Sepsis Acute renal failure type: unspecified Sepsis acute organ dysfunction status: with acute organ dysfunction Sepsis type: sepsis due to unspecified organism Severe sepsis acute organ dysfunction type: acute renal failure Severe sepsis shock status: unspecified Qualified Code(s): A41.9 - Sepsis, unspecified organism; R65.20 - Severe sepsis without septic shock; N17.9 - Acute kidney failure, unspecified
--- NOTE | 2022-07-19 11:29 | Urology Consultation ---
Date of Consultation July 19, 2022 Assessment & Plan (1) Sepsis: (2) Acute UTI: (3) Colovesical fistula: Plan 72yoF with multiple comorbidities including metastatic breast cancer on chemotherapy admitted with presumed septic shock with likely element of addisonian/adrenal shock. -Urology consulted for colovesical fistula d/t reported concern of urine in the colostomy bag. -Case discussed with Dr. Jimenez, on-call urologist. -CT a/p reviewed and with no acute findings. -Afebrile, labs reviewed -creatinine 0.62. -Urine culture negative, blood cultures no growth x 48hours. On Meropenem. -Her Rivera catheter is intact and patent, draining clear yellow urine at present . Continue to monitor. -There was concern of possible urine in the colostomy bag, however I did not appreciate urine in the colostomy bag on exam today. -In the event urine is in the colostomy bag, this is not worrisome given the sterility of urine and therefore would not require intervention. -She had an extremely complex abdominal case and significant comorbidities with hx of acute diverticulitis with colovesicular fistula status post diverting colostomy. Unfortunately, from a urological standpoint, there are limited options for surgical management past the diversion/intervention. Therefore, more complex repairs would need a referral to tertiary center colorectal surgery who could involve their onsite urological team. -Discussed with patient/[id number]-lx-too. -Urology will sign-off. Please contact us with any further questions, concerns, or changes in patient status. History of Present Illness Reason for Consultation: colovesicular fistula Attending Physician: Dhaval Ballard History of Present Illness 72-year-old female with multiple comorbidities admitted with presumed septic shock, possibly d/t UTI vs. Pneumonia with likely element of addisonian/adrenal shock as well. Pt has a hx of severe sigmoid diverticulitis with perforation on previous admission resulting in need for diverting colostomy with Dr. Villarreal on 06/21/22. It was noted that the ED physician and nursing staff from [facility] noted urine in the colostomy bag several days ago and were concerned for ongoing fistulous tract. Urology consulted for possible colovesicular fistula. Patient was was examined at bedside this morning in the ICU. She appeared comfortable and was in no acute distress at time of exam. Allergies Allergy/AdvReac Type Severity Reaction Status Date / Time No Known Allergies Allergy Verified 07/16/22 21:47 Home Medications Medication Instructions Recorded Confirmed Type cholecalciferol (vitamin D3) 125 5,000 unit PO QDL 04/25/18 07/16/22 History mcg (5,000 unit) capsule Lift chair #1 ea 08/22/20 04/28/22 Rx magnesium oxide 400 mg PO DAILY 10/27/20 07/16/22 History duloxetine 60 mg capsule,delayed 60 mg PO DAILY #90 caps 07/07/21 07/16/22 Rx release calcium carbonate 600 mg calcium 1,200 mg PO BID 08/28/21 07/16/22 History (1,500 mg) tablet (Calcium) CPAP Machine #1 ea 09/08/21 04/28/22 Rx atorvastatin 10 mg tablet 10 mg PO DAILY #90 tabs 09/15/21 07/16/22 Rx allopurinol 100 mg tablet 100 mg PO QAM 03/23/22 07/16/22 History dexamethasone 4 mg tablet 4 mg PO DAILY 04/27/22 07/16/22 History lidocaine 4 % topical patch 1 patch topical DAILY 04/28/22 07/16/22 History polyethylene glycol 3350 17 17 g PO BID 04/28/22 07/16/22 History gram/dose oral powder (Miralax) fentanyl 50 mcg/hr transdermal 50 mcg transdermal Q3D #5 ea 06/01/22 07/16/22 Rx patch gabapentin 300 mg capsule 300 mg PO BID #60 caps 06/01/22 07/16/22 Rx olmesartan 20 mg tablet 20 mg PO DAILY #30 tabs 06/01/22 07/16/22 Rx acetaminophen 325 mg tablet 650 mg PO Q6H PRN PAIN/FEVER 06/19/22 07/16/22 History (Tylenol) aluminum-mag hydroxide-simethicone 30 ml PO Q4H PRN Nausea 06/19/22 07/16/22 History 400 mg-400 mg-40 mg/5 mL oral susp (Maalox Maximum Strength) bisacodyl 5 mg tablet,delayed 10 mg PO QAM 06/19/22 07/16/22 History release bumetanide 2 mg tablet 2 mg PO BID 06/19/22 07/16/22 History lorazepam 0.5 mg tablet 0.5 mg PO Q12H 06/19/22 07/16/22 History menthol 0.44 %-zinc oxide 20.6 % 1 applic topical QS 06/19/22 07/16/22 History topical ointment (Calmoseptine) omeprazole 20 mg tablet,delayed 20 mg PO BID 06/19/22 07/16/22 History release ondansetron HCl 4 mg tablet 4 mg PO Q4H PRN NAUSEA/VOMITING 06/19/22 07/16/22 History potassium chloride 20 mEq 20 meq PO BID 06/19/22 07/16/22 History tablet,extended release prochlorperazine maleate 10 mg 10 mg PO Q4H PRN NAUSEA/VOMITING 06/19/22 07/16/22 History tablet metolazone 2.5 mg tablet 2.5 mg PO DAILY 07/16/22 07/16/22 History multivitamin 1 tab PO DAILY 07/16/22 07/16/22 History ondansetron HCl 8 mg tablet 8 mg PO . EVERY 24 HOURS PRN 07/16/22 07/16/22 History prevent nausea from chemo oxycodone 10 mg tablet 10 mg PO Q4 PRN Pain 07/16/22 07/16/22 History oxycodone 30 mg tablet,crush 30 mg PO Q12H 07/16/22 07/16/22 History resistant,extended release 12 hr Patient History Medical History (Updated 07/18/22 @ 18:58 by Dhaval Ballard) Claudication of both lower extremities Depression GERD (gastroesophageal reflux disease) controlled Hiatal hernia Hyperlipidemia Hypertension Inflammatory polyarthritis Malignant neoplasm of upper-inner quadrant of left breast in female, estrogen receptor negative (04/24/19) Nocturnal hypoxemia Obesity, morbid, BMI 40.0-49.9 Palliative care encounter Rheumatoid arthritis on Plaquenil/prednisone 5mg daily chronic (mostly affects spine/hip/knee locations, no cervical issues) Spinal stenosis, lumbar region with neurogenic claudication Surgical History Difficult airway for intubation WITH BREAST SURGERY 05/2019 [facility] H/O abdominal surgery (06/21/22) Laparoscopic Assisted Diverting Colostomy(Not Applicable) - Johnnie Villarreal DO History of cholecystectomy History of colonoscopy History of esophagogastroduodenoscopy (EGD) History of lumpectomy of left breast partial History of open reduction and internal fixation (ORIF) procedure right wrist History of tonsillectomy and adenoidectomy History of total abdominal hysterectomy and bilateral salpingo-oophorectomy History of total hip arthroplasty RIGHT 10/2020 History of vascular access device present right chest Status post right foot surgery Family History Mother , age 77 CHF Family history of diabetes mellitus Hypertension Family history of cardiac disorder Diabetes type 2 Deep vein thrombosis Brother , age 49 colon cancer Family hx of colon cancer Colorectal cancer Grandfather Family hx of colon cancer PATERNAL Father , age 60 cardiac arrest Family history of cardiac disorder Myocardial infarction Sister Family history of malignant neoplasm Breast cancer, Onset Age: 50 Son Allergic rhinitis Coronary heart disease Son No problems noted. 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 [employer] How many Children do You have: 3 Feels Safe at Home: Yes Childhood Exposure to Second-Hand Smoke: Yes Diet Comment: low sodium caffeine: Yes during the past year weight has: other Dental Care, Regularly: Yes Physical Activity Frequency: 1-2 Times per Week Seatbelt Use: always Sunscreen Use: Yes (sometimes) Assistive Devices: Walker Review of Systems Review of Systems: All systems reviewed & are unremarkable except as noted in HPI & below Physical Exam Constitutional: cooperative; no acute distress Neck: normal visual inspection Respiratory: no respiratory distress and no labored breathing Gastrointestinal (Abdomen): Colostomy present LLQ with brown stool present Musculoskeletal: Head/Neck/Chest: normocephalic Skin: No visible rashes or lesions to exposed skin areas Neurologic: awake Psychiatric: Orientation: alert and oriented x 3 Genitourinary: Rivera catheter intact, draining clear yellow urine Results & Data ([facility]) Vital Signs (Past 12 Hours) Vital Signs Temp Pulse Pulse Resp BP BP Pulse Ox 07/19/22 07:41 36.8 C 85 17 162/93 H 93 07/19/22 08:00 85 07/19/22 05:41 158/98 H 07/19/22 05:41 85 16 98 07/19/22 05:00 76 13 91 07/19/22 04:00 81 23 93 07/19/22 04:27 79 21 95 07/19/22 03:41 77 12 98 07/19/22 03:41 160/87 H 07/19/22 03:00 86 13 88 L 07/19/22 02:00 78 14 91 07/19/22 01:40 82 14 88 L 07/19/22 01:40 153/84 H 07/19/22 01:00 80 14 91 07/19/22 00:00 83 14 92 07/18/22 23:41 140/90 07/18/22 23:41 79 14 92 07/18/22 23:39 O2 Del Method O2 Flow Rate 07/19/22 07:41 Room Air 07/19/22 08:00 07/19/22 05:41 07/19/22 05:41 Room Air 07/19/22 05:00 07/19/22 04:00 07/19/22 04:27 2 07/19/22 03:41 CPAP 07/19/22 03:41 07/19/22 03:00 07/19/22 02:00 07/19/22 01:40 CPAP 07/19/22 01:40 07/19/22 01:00 07/19/22 00:00 CPAP 07/18/22 23:41 07/18/22 23:41 07/18/22 23:39 Nasal Cannula 2 PG Care Time/CCT Total # of Minutes Spent Total Time Spent with Patient: Total time spent is greater than 50% in coordination of care (as documented) at patient's floor/unit and/or counseling patient: Coding Level of Care Code 40571 Initial Inpt Care Lvl 2 Diagnoses Sepsis A41.9; R65.20; N17.9 Acute renal failure type: unspecified Sepsis acute organ dysfunction status: with acute organ dysfunction Sepsis type: sepsis due to unspecified organism Severe sepsis acute organ dysfunction type: acute renal failure Severe sepsis shock status: unspecified Acute UTI N39.0 Colovesical fistula N32.1 (1) Sepsis Acute renal failure type: unspecified Sepsis acute organ dysfunction status: with acute organ dysfunction Sepsis type: sepsis due to unspecified organism Severe sepsis acute organ dysfunction type: acute renal failure Severe sepsis shock status: unspecified Qualified Code(s): A41.9 - Sepsis, unspecified organism; R65.20 - Severe sepsis without septic shock; N17.9 - Acute kidney failure, unspecified
[2022-07-19 16:52] LABS: Partial Thromboplastin Ratio 1.6; Partial Thromboplastin Time 43.7 Seconds (21.0-31.0)
[2022-07-19] MEDS: HEPARIN SODIUM/DEXTROSE 25,000 UNITS/500 ML BAG IV SCH (23:26)
[2022-07-20 00:17] LABS: Partial Thromboplastin Ratio 2.2
[2022-07-20] MEDS: CHECK fentaNYL PATCH PLACEMENT SCH ×3 (00:26→16:00)
[2022-07-20 00:42] LABS: Partial Thromboplastin Time 59.8 Seconds (21.0-31.0)
[2022-07-20] MEDS: HEPARIN SODIUM/DEXTROSE 25,000 UNITS/500 ML BAG IV SCH (03:33)
[2022-07-20] MEDS: MEROPENEM 500 MG in SYRINGE 0 ML IV SCH ×3 (03:45→16:02)
[2022-07-20 05:36] LABS: Calcium 7.2 mg/dl (8.5-10.1); Creatinine Clr Calc Pharmacy 76.7 ml/min; Est GFR (Non-African American) 78.5 ml/min; Potassium 4.3 mmol/L (3.5-5.1)
[2022-07-20 05:40] LABS: Partial Thromboplastin Ratio 2.5
[2022-07-20 06:34] LABS: Partial Thromboplastin Time 67.1 Seconds (21.0-31.0)
[2022-07-20 07:07] LABS: Hematocrit (blood only) 25.4 % (34.1-44.9); Hemoglobin 8.5 g/dl (12.0-16.0); Mean Corpuscular Hemoglobin 31.6 pg (25.0-34.0); Mean Corpuscular Hgb Conc 33.5 g/dL (32.0-36.0); Mean Corpuscular Volume 94.4 fL (80.0-100.0); Mean Platelet Volume 9.1 fL (9.4-12.3); Nucleated RBC # (auto) 0.04 K/uL (0-0); Nucleated RBC % (auto) 6.3 %; Platelet Count 123 K/uL (130-400); RDW Coefficient of Variation 16.6 % (11.5-14.5); RDW Standard Deviation 56.9 fL (36.4-46.3); Red Blood Count 2.69 M/uL (3.93-5.22); White Blood Count 0.63 K/ul (4.8-10.8)
[2022-07-20 07:11] LABS: Platelet Estimate Normal (Normal); Polychromasia 1+
[2022-07-20] MEDS: SUCRALFATE 1 GM/10 ML UDC PO SCH ×4 (07:11→21:07)
[2022-07-20 07:12] LABS: Basophils # (auto) 0.01 K/uL (0-0.2); Basophils % (auto) 1.6 %; Immature Granulocytes # (auto) 0.02 K/uL (0.00-0.02); Immature Granulocytes % (auto) 3.2 %; Lymphocytes # (auto) 0.07 K/uL (1.2-3.4); Lymphocytes % (auto) 11.1 %; Monocytes # (auto) 0.01 K/uL (0.24-0.82); Monocytes % (auto) 1.6 %; Neutrophils # (auto) 0.52 K/uL (1.4-6.5); Neutrophils % (auto) 82.5 %
[2022-07-20] MEDS: CALCIUM CARBONATE 1250MG TAB PO SCH ×2 (07:55→16:03)
[2022-07-20] MEDS: ATORVASTATIN 10 MG TAB PO SCH (07:56)
[2022-07-20] MEDS: dexAMETHasone 4 MG in SYRINGE 0 ML IV SCH (07:56)
[2022-07-20] MEDS: DULoxetine HCL 60 MG CAP PO SCH (07:56)
[2022-07-20] MEDS: allopurinoL 100 MG TAB PO SCH (07:56)
[2022-07-20] MEDS: GABAPENTIN 300 MG CAP PO SCH ×2 (07:56→16:02)
[2022-07-20] MEDS: MULTIVITAMIN TAB PO SCH (07:57)
[2022-07-20] MEDS: NYSTATIN SUSP 500,000 U/5 ML UDC PO SCH ×4 (07:57→21:01)
[2022-07-20] MEDS: NYSTATIN POWDER 15GM BTL EXT SCH ×2 (07:57→21:07)
[2022-07-20] MEDS: POLYETHYLENE (MIRALAX) 17 GM PACK PO SCH ×2 (08:00→21:01)
[2022-07-20] MEDS: POT PHOSPHATE MONOBASIC W/ SOD TAB PO SCH ×4 (08:00→21:06)
[2022-07-20] MEDS: oxyCODONE HCL 15 MG TABCR (OxyCONTIN) PO SCH ×2 (08:01→21:06)
[2022-07-20] MEDS: APIXABAN 5 MG TABLET PO SCH ×2 (10:03→20:59)
[2022-07-20 10:07] LABS: Urea Nitrogen, Random Urine 292 mg/dL
[2022-07-20] MEDS: PANTOprazole 40 MG TAB PO SCH ×2 (11:31→21:00)
[2022-07-20] MEDS: CHOLECALCIFEROL 5,000 UNITS 125 MCG TAB PO SCH (11:32)
[2022-07-20] MEDS: FILGRASTIM 300 MCG/ML VIAL SC SCH (11:32)
--- NOTE | 2022-07-20 11:43 | Hospitalist Progress Note ---
Date of Service July 20, 2022 Assessment & Plan (1) Pulmonary emboli: Plan: detected CTA chest on 07/18. moderate PE burden. recent b/l LE dopplers neg for residual DVT. heparin drip initiated 07/18. can transition to PO Eliquis today -- start 10mg BID x 7 days, then 5mg BID thereafter. I suspect she will need this lifelong/indefinitely. risk factors for PE - recent COVID infection, stage 4 cancer, immobility, etc. (2) Colovesical fistula: Plan: Secondary to severe sigmoid diverticulitis with perforation on previous admission resulting in need for diverting colostomy with Dr. Villarreal. I spoke with the [facility] phlebotomist medical lab assistant 07/18 - he and several staff members noted urine in the colostomy several days ago concerning for ongoing fistulous tract. ? urine in the ostomy today. [facility] [place] - at this time no surgical intervention advised given the complexity of her medical problems, the complexity of the type of surgery she would need to rectify the fistula, ongoing active chemo for her cancer, etc. Reassurance given to patient. (3) Shock: Plan: presumed septic shock at time of admission. likely element of addisonian/adrenal shock as well (had been on chronic prednisone for a long time for RA, then switched to dexamethasone in May 2022). s/p need for levophed - now weaned off. s/p fluid resuscitation - IV fluids now off. stress-dose steroids were employed - now weaned to 4mg this am and 2mg tonight, then 4mg daily starting tomorrow (her usual dose). BPs robust at this time. although septic shock suspected blood/urine cultures are negative. further, CTA chest did not show any pneumonia. Her Acute PEs may have contributed as well to her hypotension. (4) Chest tightness: Plan: May have been 2nd to acute PEs. May have been 2nd to esophageal/gastric discomfort (has large hiatal hernia, etc). Tightness resolved. No evidence of ACS; EKGS stable. Continue PPI + carafate for GI source. Treat PEs. (5) Sepsis: Plan: Presumed due to UTI in setting of #4. However, blood/urine cx's negative. No pneumonia on CTA chest. Stopped IV vanco. Cont meropenem until tonight then stop. Repeat u/a and urine cx. Will decide tomorrow on 07/21 whether to cont a few more days of ertapenem to cover the urine or simply observe off all abx. Leaning towards ertapenem given her severe neutropenia, etc. Follow blood cultures. (6) KAT (acute kidney injury): Plan: Creatinine 2.48 on admission. Resolved, now Cr <1. Continue holding all diuretics i.e. metolazone, bumetanide; continue holding olmesartan from home. Repeat BMP am. Cont betts but d/c it within the next 24 hours. (7) Hypoxia: Plan: Acute hypoxic respiratory failure upon arrival with saturation of 77% on room air. Was initially placed on CPAP, then weaned to NC O2, and now to RA. Likely due to acute PEs as the cause. resolved. No evidence of pneumonia or pulmonary edema on imaging. (8) Antineoplastic chemotherapy induced pancytopenia: Plan: Pancytopenia remains with neutropenia. Instituted neutropenic precautions. [place] likely a few days away. Repeat CBC with diff in am. s/p chemotherapy last week c/o Dr Prakash, [facility] heme/onc. start neupogen 300mcg daily until ANC is >2000 (9) Elevated troponin: Plan: 2nd to myocardial demand ischemia rather than true ACS. Demand ischemia 2nd to acute PEs, shock, etc. (10) Lower extremity edema: Plan: dopplers of b/l legs negative for DVT but probably had DVTs at some point given the PEs discovered. albumin is 3 - may be contributing. TSH is wnl. most recent echo (10/2021) with preserved EF, 55-60%, but grade 2 diastolic dysfunction. given her KAT unable to provide diuresis at this time but KAT certainly could have attributed to the edema. diastolic dysfunction also a possible contributor. edema looks much better. hold diuretics for now. (11) COVID-19: Plan: initial diagnosis 06/29/22. thus, we are nearly 3 weeks out from her initial diagnosis. COVID/airborne precautions discontinued. (12) Anemia: Plan: Fe studies, B12, and folate with adequate stores. TSH wnl. Anemia 2nd to stage 4 breast ca and recent chemotherapy. Repeat cbc am. (13) Malignant 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: Plan: With numerous bony metastases. Follows with Dr. Adama Prakash of [facility] oncology. Has only completed 2 rounds of palliative chemotherapy thus far due to recurrent infections and hospitalizations-her most recent treatment was 07/15. Now with chemo-induced pancytopenia. She is s/p palliative XRT to her right hip and her left hip. She is on chronic fentanyl patch and OxyContin 30 Mg p.o. twice daily, and uses oxycodone IR prn. Continue bowel regimen. Resume gabapentin 300mg BID. Cont stress dose steroids but wean as above. (14) Hypertension: Plan: With #1 at time of admission. Holding home Bumex, metolazone, olmesartan. BPs remain satisfactory today. (15) Anxiety and depression: Plan: Continue home duloxetine 60 mg p.o. once daily and lorazepam as needed (16) Hypocalcemia: Plan: phos level minimally low - supplement 25-OH vit D level wnl total calcium level is better but cont PO supplementation trend the level daily (17) Moderate obstructive sleep apnea: Plan: Continue CPAP at bedtime (18) Rheumatoid arthritis: Plan: Has been off of her hydroxychloroquine for some time due to recent infections Is now on dexamethasone daily for bony pain; previously took prednisone 5mg/day for long time for her RA; this was d/c in gadiel of dexamethasone in May 2022 (19) Gout: Plan: cont allopurinol 100mg daily no flares (20) Hyperlipidemia: Plan: Continue atorvastatin 10 mg daily (21) DVT prophylaxis: Plan: Eliquis BID (22) Morbid obesity with BMI of 40.0-44.9, adult: Plan: BMI 43-44 Plan son updated at bedside 07/18/22 [id number] updated extensively by phone on 07/19/22 patient remains in PCU status cont PT/OT evals hopefully back to SNF next 48 hours Admission and Anticipated Discharge Date Admission Date: July 16, 2022 Subjective patient overall feels better she is in better spirits today when I arrived she was working with therapy we transferred her from bed to chair she was happy to be OOB ostomy working well betts draining clear urine no dyspnea at rest; a little dyspnea with transferring eating well tele wnl Review of Systems Review of Systems: gen - no fevers or chills cv - no further chest pain or tightness pulm - no cough GI - no nausea or emesis Physical Exam Physical Exam: gen - cushingnoid in appearance; NAD; pleasant; looks good today; sitting in chair; she did get a little short of breath moving from bed to chair skin - mild pallor; ecchymoses over abdominal wall and flank mouth - no obvious thrush, MMM heart - RRR, s1 s2, no obvious murmur lungs - decreased BS Left base, CTA b/l otherwise; no rales, no wheezing abd - soft, NT, ND, soft, colostomy present LLQ - ?urine vs yellow stool ext - trace edema b/l legs, pulses 2+ b/l psych - awake, alert, oriented x 3 Results & Data Results & Data ([facility]) Vital Signs (Past 12 Hours) Vital Signs Temp Pulse Pulse Resp BP BP Pulse Ox 07/20/22 07:15 36.4 C L 86 22 168/106 H 96 07/20/22 04:00 78 10 L 94 07/20/22 03:42 157/81 H 07/20/22 03:42 81 7 L 94 07/20/22 03:40 152/95 H 07/20/22 03:40 79 11 L 96 07/20/22 03:00 81 13 97 07/20/22 02:00 78 8 L 95 07/20/22 01:00 79 10 L 94 07/20/22 00:00 81 10 L 93 07/20/22 04:45 36.6 C 07/20/22 00:00 36.6 C O2 Del Method 07/20/22 07:15 Room Air 07/20/22 04:00 07/20/22 03:42 07/20/22 03:42 07/20/22 03:40 07/20/22 03:40 07/20/22 03:00 07/20/22 02:00 07/20/22 01:00 07/20/22 00:00 07/20/22 04:45 07/20/22 00:00 Laboratory Results Laboratory Results - last 24 hr 07/17/22 07/19/22 07/19/22 00:10 16:35 23:03 WBC RBC Hgb Hct MCV MCH MCHC RDW Std Deviation RDW Coeff of [place] Plt Count MPV Immature Gran % (Auto) Neut % (Auto) Lymph % (Auto) [place] % (Auto) Eos % (Auto) Baso % (Auto) Neut # (Auto) Lymph # (Auto) [place] # (Auto) Eos # (Auto) Baso # (Auto) Immature Gran # (Auto) Absolute Nucleated RBC Nucleated RBC % (auto) Platelet Estimate Polychromasia APTT 43.7 H 59.8 H* PTT Ratio 1.6 2.2 Sodium Potassium Chloride Carbon Dioxide Anion Gap BUN Creatinine Est Cr Clr Drug Dosing Est GFR ( Amer) Est GFR (Non-Af Amer) BUN/Creatinine Ratio Glucose POC Glucose Calcium Ur Random Urea Nitrogn 292 07/20/22 07/20/22 07/20/22 04:59 04:59 04:59 WBC 0.63 L* RBC 2.69 L Hgb 8.5 L Hct 25.4 L MCV 94.4 MCH 31.6 MCHC 33.5 RDW Std Deviation 56.9 H RDW Coeff of [place] 16.6 H Plt Count 123 L MPV 9.1 L Immature Gran % (Auto) 3.2 Neut % (Auto) 82.5 Lymph % (Auto) 11.1 [place] % (Auto) 1.6 Eos % (Auto) 0.0 Baso % (Auto) 1.6 Neut # (Auto) 0.52 L* Lymph # (Auto) 0.07 L [place] # (Auto) 0.01 L Eos # (Auto) 0.00 Baso # (Auto) 0.01 Immature Gran # (Auto) 0.02 Absolute Nucleated RBC 0.04 H Nucleated RBC % (auto) 6.3 Platelet Estimate Normal Polychromasia 1+ APTT 67.1 H* PTT Ratio 2.5 Sodium 138 Potassium 4.3 Chloride 100 Carbon Dioxide 33 H Anion Gap 5 BUN 21 Creatinine 0.75 Est Cr Clr Drug Dosing 76.7 Est GFR ( Amer) 91.0 Est GFR (Non-Af Amer) 78.5 BUN/Creatinine Ratio 28.0 H Glucose 175 H POC Glucose Calcium 7.2 L Ur Random Urea Nitrogn 07/20/22 11:28 WBC RBC Hgb Hct MCV MCH MCHC RDW Std Deviation RDW Coeff of [place] Plt Count MPV Immature Gran % (Auto) Neut % (Auto) Lymph % (Auto) [place] % (Auto) Eos % (Auto) Baso % (Auto) Neut # (Auto) Lymph # (Auto) [place] # (Auto) Eos # (Auto) Baso # (Auto) Immature Gran # (Auto) Absolute Nucleated RBC Nucleated RBC % (auto) Platelet Estimate Polychromasia APTT PTT Ratio Sodium Potassium Chloride Carbon Dioxide Anion Gap BUN Creatinine Est Cr Clr Drug Dosing Est GFR ( Amer) Est GFR (Non-Af Amer) BUN/Creatinine Ratio Glucose POC Glucose 183 H Calcium Ur Random Urea Nitrogn Diagnostic Findings blood cx's negative from admission urine cx negative PG Care Time/CCT Total # of Minutes Spent Total Time Spent with Patient: Total time spent is greater than 50% in coordination of care (as documented) at patient's floor/unit and/or counseling patient: Coding Level of Care Code 20876 Subseq Hosp Care Lvl 3 Diagnoses Pulmonary emboli I26.99 Colovesical fistula N32.1 Shock R57.9 Chest tightness R07.89 Sepsis A41.9; R65.20; N17.9 Acute renal failure type: unspecified Sepsis acute organ dysfunction status: with acute organ dysfunction Sepsis type: sepsis due to unspecified organism Severe sepsis acute organ dysfunction type: acute renal failure Severe sepsis shock status: unspecified KAT (acute kidney injury) N17.9 Hypoxia R09.02 Antineoplastic chemotherapy induced pancytopenia D61.810; T45.1X5A Elevated troponin R77.8 Lower extremity edema R60.0 COVID-19 U07.1 Anemia D64.9 Malignant 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 C50.919; C79.51 Hypertension I10 Anxiety and depression F41.9; F32.9 Hypocalcemia E83.51 Moderate obstructive sleep apnea G47.33 Rheumatoid arthritis M06.9 Gout M10.9 Hyperlipidemia E78.5 DVT prophylaxis Z29.9 Morbid obesity with BMI of 40.0-44.9, adult E66.01; Z68.41 (1) Sepsis Acute renal failure type: unspecified Sepsis acute organ dysfunction status: with acute organ dysfunction Sepsis type: sepsis due to unspecified organism Severe sepsis acute organ dysfunction type: acute renal failure Severe sepsis shock status: unspecified Qualified Code(s): A41.9 - Sepsis, unspecified organism; R65.20 - Severe sepsis without septic shock; N17.9 - Acute kidney failure, unspecified
[2022-07-20] MEDS: METOPROLOL TARTRATE 25 MG TAB PO SCH ×2 (13:12→21:00)
[2022-07-20] MEDS: INSULIN ASPART PER UNIT SC SCH ×3 (13:35→21:06)
[2022-07-20 14:02] LABS: Appearance Urine Cloudy (Clear); Bacteria Urine Automated Negative (Negative); Bilirubin Urine Negative (Negative); Blood Urine Negative (Negative); Color Urine Dark Yellow; Epithelial Cell Urine Auto >30 /lpf (0-5); Glucose Urine UA 3+ (Negative); Ketones Urine Trace (Negative); Leukocyte Esterase Urine Trace (Negative); Nitrite Urine Negative (Negative); Protein Urine Trace (Negative); Urobilinogen Urine Negative (Negative)
[2022-07-20 14:25] LABS: RBC Urine Automated 0-4 /hpf (0-4)
[2022-07-20] MEDS ORDERED: dexAMETHasone 1 MG TAB PO ONE (17:00)
[2022-07-21] MEDS ORDERED: ALUMINUM/MAGNESIUM SUSP 30 ML UDC PO STA (02:28)
[2022-07-21] MEDS: CHECK fentaNYL PATCH PLACEMENT SCH ×3 (03:59→16:46)
[2022-07-21] MEDS: SUCRALFATE 1 GM/10 ML UDC PO SCH ×4 (08:10→20:47)
[2022-07-21] MEDS: INSULIN ASPART PER UNIT SC SCH ×4 (08:10→20:49)
[2022-07-21] MEDS: GABAPENTIN 300 MG CAP PO SCH ×2 (08:12→16:48)
[2022-07-21] MEDS: CALCIUM CARBONATE 1250MG TAB PO SCH ×2 (08:12→16:47)
[2022-07-21] MEDS: allopurinoL 100 MG TAB PO SCH (08:12)
[2022-07-21] MEDS: APIXABAN 5 MG TABLET PO SCH ×2 (08:13→20:48)
[2022-07-21] MEDS: ATORVASTATIN 10 MG TAB PO SCH (08:13)
[2022-07-21] MEDS: DULoxetine HCL 60 MG CAP PO SCH (08:13)
[2022-07-21] MEDS: dexAMETHasone 4 MG TAB PO SCH (08:13)
[2022-07-21] MEDS: METOPROLOL TARTRATE 25 MG TAB PO SCH ×2 (08:14→20:48)
[2022-07-21] MEDS: MULTIVITAMIN TAB PO SCH (08:14)
[2022-07-21] MEDS: NYSTATIN POWDER 15GM BTL EXT SCH ×2 (08:14→20:47)
[2022-07-21] MEDS: NYSTATIN SUSP 500,000 U/5 ML UDC PO SCH ×4 (08:15→20:47)
[2022-07-21] MEDS: PANTOprazole 40 MG TAB PO SCH ×2 (08:15→20:47)
[2022-07-21] MEDS: POLYETHYLENE (MIRALAX) 17 GM PACK PO SCH ×2 (08:15→20:48)
[2022-07-21] MEDS: fentaNYL 50 MCG/HR TDSY TD SCH (08:18)
[2022-07-21] MEDS: FILGRASTIM 300 MCG/ML VIAL SC SCH (08:19)
[2022-07-21] MEDS: oxyCODONE HCL 15 MG TABCR (OxyCONTIN) PO SCH ×2 (08:20→20:48)
[2022-07-21] MEDS: POT PHOSPHATE MONOBASIC W/ SOD TAB PO SCH ×4 (08:21→20:49)
[2022-07-21 08:48] LABS: Hematocrit (blood only) 27.4 % (34.1-44.9); Hemoglobin 9.3 g/dl (12.0-16.0); Mean Platelet Volume 9.8 fL (9.4-12.3); Platelet Count 119 K/uL (130-400); White Blood Count 1.75 K/ul (4.8-10.8)
[2022-07-21 09:19] LABS: Basophils # (auto) 0.01 K/uL (0-0.2); Basophils % (auto) 0.6 %; Eosinophils # (auto) 0.03 K/uL (0-0.50); Eosinophils % (auto) 1.7 %; Immature Granulocytes # (auto) 0.08 K/uL (0.00-0.02); Immature Granulocytes % (auto) 4.6 %; Lymphocytes # (auto) 0.22 K/uL (1.2-3.4); Lymphocytes % (auto) 12.6 %; Mean Corpuscular Hemoglobin 31.8 pg (25.0-34.0); Mean Corpuscular Hgb Conc 33.9 g/dL (32.0-36.0); Mean Corpuscular Volume 93.8 fL (80.0-100.0); Monocytes # (auto) 0.02 K/uL (0.24-0.82); Monocytes % (auto) 1.1 %; Neutrophils # (auto) 1.39 K/uL (1.4-6.5); Neutrophils % (auto) 79.4 %; Nucleated RBC # (auto) 0.05 K/uL (0-0); Nucleated RBC % (auto) 2.9 %; RBC Morphology Unremarkable; RDW Coefficient of Variation 16.7 % (11.5-14.5); RDW Standard Deviation 56.8 fL (36.4-46.3); Red Blood Count 2.92 M/uL (3.93-5.22)
[2022-07-21 09:21] LABS: BUN Creatinine Ratio 32.2 (10-20); Calcium 6.8 mg/dl (8.5-10.1); Creatinine Clr Calc Pharmacy 97.5 ml/min; Est GFR (African American) 104.6 ml/min; Est GFR (Non-African American) 90.3 ml/min; Potassium 3.6 mmol/L (3.5-5.1)
[2022-07-21] MEDS ORDERED: CALCIUM GLUCONATE 10% 1,000 MG in DEXTROSE 5% 50 ML IV ONE (10:02)
[2022-07-21] MEDS ORDERED: STAT IV STA (10:02)
[2022-07-21] MEDS: CHOLECALCIFEROL 5,000 UNITS 125 MCG TAB PO SCH (11:57)
[2022-07-21] MEDS ORDERED: BUMETANIDE 1 MG TAB PO ONE (17:00)
--- NOTE | 2022-07-21 19:55 | Hospitalist Progress Note ---
Date of Service July 21, 2022 Assessment & Plan (1) Pulmonary emboli: Plan: detected CTA chest on 07/18. moderate PE burden. recent b/l LE dopplers neg for residual DVT. heparin drip initiated 07/18. transitioned to PO Eliquis 07/20 -- start 10mg BID x 7 days, then 5mg BID thereafter. I suspect she will need this lifelong/indefinitely. risk factors for PE - recent COVID infection, stage 4 cancer, immobility, etc. had required O2 earlier this week - now remains stable in room air. (2) Candidal UTI (urinary tract infection): Plan: initial urine cx from time of admission was negative; however, u/a at admission and a 2nd u/a later in the stay showed budding yeast on microscopy repeat urine cx now with non-albicans candidal UTI. I called lab and asked them to send culture out for speciation & sensitivities. previous betts catheter has been removed. typically I would not Rx this candidal UTI. however, in light of presentation (Shock, suspected sepsis), immunocompromised status (s/p chemo last week, neutropenia), etc I would favor Rx. most non-albicans species we have detected are typically voriconazole sensitive. thus, start voriconazole 200mg BID. I spoke with our pharmacy -- voriconazole and fentanyl patch/oxycontin do interact via CYP system. The voriconazole can theoretically increase blood levels of fentanyl. To be on safe side I lowered the fentanyl patch to 25mcg. Can resume higher dose down the line once anti-fungal course is complete. I alerted our night physician about this issue. She is on CPAP at night-time for GERMAN as well. Will watch closely for excess sedation, altered MS, etc in light of the above. Will obtain ID consultation tomorrow as well. (3) Colovesical fistula: Plan: Secondary to severe sigmoid diverticulitis with perforation on previous admission resulting in need for diverting colostomy with Dr. Villarreal. I spoke with the [facility] health care / medical job titles 07/18 - he and several staff members noted urine in the colostomy several days ago concerning for ongoing fistulous tract. ? urine in the ostomy during this hospital stay as well. [facility] [place] consult was completed - at this time no surgical intervention advised given the complexity of her medical problems, the complexity of the type of surgery she would need to rectify the fistula, ongoing active chemo for her cancer, etc. Reassurance given to patient. (4) Shock: Plan: presumed septic shock at time of admission. likely element of addisonian/adrenal shock as well (had been on chronic prednisone for a long time for RA, then switched to dexamethasone in May 2022). s/p need for levophed - now weaned off. s/p fluid resuscitation - IV fluids now off. stress-dose steroids were employed - now weaned to typical daily dose of 4mg. BPs robust at this time. although septic shock suspected blood/urine cultures were negative. further, CTA chest did not show any pneumonia. Her Acute PEs may have contributed as well to her hypotension. did repeat a urine culture and it has grown non-batool albicans yeast - see #2 above. (5) Chest tightness: Plan: May have been 2nd to acute PEs. May have been 2nd to esophageal/gastric discomfort (has large hiatal hernia, etc). Tightness resolved. No evidence of ACS; EKGS stable. Continue PPI + carafate for GI source. Treat PEs. (6) Sepsis: Plan: Presumed due to UTI in setting of #4. However, blood/urine cx's negative. No pneumonia on CTA chest. A repeat urine culture has grown yeast. All abx therapy has been stopped. Anti-fungal therapy begun. (7) KAT (acute kidney injury): Plan: Creatinine 2.48 on admission. Resolved, now Cr <1. Resume bumex today. Repeat BMP am. (8) Hypoxia: Plan: Acute hypoxic respiratory failure upon arrival with saturation of 77% on room air. Was initially placed on CPAP, then weaned to NC O2, and now to RA. Likely due to acute PEs. resolved. No evidence of pneumonia or pulmonary edema on imaging. (9) Antineoplastic chemotherapy induced pancytopenia: Plan: Pancytopenia remains with neutropenia. Instituted neutropenic precautions. Started neupogen 300mcg daily on 07/20 until ANC is >2000 Repeat CBC with diff in am. s/p chemotherapy last week c/o [facility]. (10) Elevated troponin: Plan: 2nd to myocardial demand ischemia rather than true ACS. Demand ischemia 2nd to acute PEs, shock, etc. (11) Lower extremity edema: Plan: dopplers of b/l legs negative for DVT but probably had DVTs at some point given the PEs discovered. albumin is 3 - may be contributing. TSH is wnl. most recent echo (10/2021) with preserved EF, 55-60%, but grade 2 diastolic dysfunction -- thus diastolic dysfunction also a possible contributor. KAT certainly could have attributed to the edema. since AKT resolved will resume bumex. (12) COVID-19: Plan: initial diagnosis 06/29/22. thus, we are nearly 3 weeks out from her initial diagnosis. no symptoms of COVID at this time. COVID/airborne precautions discontinued. (13) Anemia: Plan: Fe studies, B12, and folate with adequate stores. TSH wnl. Anemia 2nd to stage 4 breast ca and recent chemotherapy. Repeat cbc am. H/H are acceptable. (14) Malignant 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: Plan: With numerous bony metastases. Follows with Dr. Adama Prakash of [facility] oncology. Has only completed 2 rounds of palliative chemotherapy thus far due to recurrent infections and hospitalizations-her most recent treatment was 07/15. Now with chemo-induced pancytopenia. She is s/p palliative XRT to her right hip and her left hip. She is on chronic fentanyl patch and OxyContin 30 Mg p.o. twice daily, and uses oxycodone IR prn. See #2 above re: dose reduction of fentanyl. Continue bowel regimen. Continue gabapentin 300mg BID. Continue dexamethasone 4mg daily for her RA as well as bony pain. (15) Hypertension: Plan: Resume bumex today. Likely will need to resume olmesartan soon. (16) Anxiety and depression: Plan: Continue home duloxetine 60 mg p.o. once daily and lorazepam as needed (17) Hypocalcemia: Plan: phos level minimally low - supplement 25-OH vit D level wnl total calcium level remains low despite PO supplementation calcium gluconate 1gm IV x 1 repeat total and ionized calcium levels in am due to recent Xgeva?? (18) Moderate obstructive sleep apnea: Plan: Continue CPAP at bedtime (19) Rheumatoid arthritis: Plan: Has been off of her hydroxychloroquine for some time due to recent infections Is now on dexamethasone daily for bony pain; previously took prednisone 5mg/day for long time for her RA; this was d/c in gadiel of dexamethasone in May 2022 (20) Gout: Plan: cont allopurinol 100mg daily no flares (21) Hyperlipidemia: Plan: Continue atorvastatin 10 mg daily (22) DVT prophylaxis: Plan: Eliquis BID (23) Morbid obesity with BMI of 40.0-44.9, adult: Plan: BMI 43-44 Plan son updated at bedside 07/18/22 [id number] updated extensively by phone on 07/19/22 left message for [id number] on her phone voicemail 07/21/22 patient remains in PCU status cont PT/OT hopefully back to SNF next 48 hours Admission and Anticipated Discharge Date Admission Date: July 16, 2022 Subjective patient sitting in chair during the visit she states "I feel much better" appetite is good she is getting from bed to chair betts removed; voiding fine; no LUTS no dyspnea at rest; minimal SANDERS with activity; denies cough asks "what the plan is" for the rest of her stay we discussed the yeast growing in her urine culture tele overnight wnl still has moments of feeling a bit confused although she is alert/oriented x 3 Review of Systems Review of Systems: gen - no fevers or chills cv - no further chest tightness; no chest pain; no pleuritic pain; edema is worse of legs pulm - no wheezing/cough/dyspnea GI - no nausea or emesis; ostomy bag with stool Physical Exam Physical Exam: gen - cushingnoid in appearance; NAD; pleasant; sitting in chair skin - mild pallor; ecchymoses over abdominal wall and flank mouth - no obvious thrush, MMM heart - RRR, s1 s2, no obvious murmur lungs - decreased BS Left base, CTA b/l otherwise abd - soft, NT, ND, soft, colostomy present LLQ - brown soft stool present l ext - 1-2+ edema b/l legs, pulses 2+ b/l psych - awake, alert, oriented x 3 Results & Data Results & Data ([facility] [place]) Vital Signs (Past 12 Hours) Vital Signs Temp Pulse Pulse Resp BP Pulse Ox O2 Del Method 07/21/22 16:34 36.6 C 86 20 167/82 H 99 Room Air 07/21/22 11:52 37.0 C 75 19 163/79 H 95 Room Air Laboratory Results Laboratory Results - last 24 hr 07/20/22 07/21/22 07/21/22 20:19 07:49 08:31 WBC 1.75 L RBC 2.92 L Hgb 9.3 L Hct 27.4 L MCV 93.8 MCH 31.8 MCHC 33.9 RDW Std Deviation 56.8 H RDW Coeff of [place] 16.7 H Plt Count 119 L MPV 9.8 Immature Gran % (Auto) 4.6 Neut % (Auto) 79.4 Lymph % (Auto) 12.6 [place] % (Auto) 1.1 Eos % (Auto) 1.7 Baso % (Auto) 0.6 Neut # (Auto) 1.39 L Lymph # (Auto) 0.22 L [place] # (Auto) 0.02 L Eos # (Auto) 0.03 Baso # (Auto) 0.01 Immature Gran # (Auto) 0.08 H Absolute Nucleated RBC 0.05 H Nucleated RBC % (auto) 2.9 RBC Morphology Unremarkable Sodium Potassium Chloride Carbon Dioxide Anion Gap BUN Creatinine Est Cr Clr Drug Dosing Est GFR ( Amer) Est GFR (Non-Af Amer) BUN/Creatinine Ratio Glucose POC Glucose 153 H 116 H Calcium Phosphorus 07/21/22 07/21/22 07/21/22 08:31 11:06 16:31 WBC RBC Hgb Hct MCV MCH MCHC RDW Std Deviation RDW Coeff of [place] Plt Count MPV Immature Gran % (Auto) Neut % (Auto) Lymph % (Auto) [place] % (Auto) Eos % (Auto) Baso % (Auto) Neut # (Auto) Lymph # (Auto) [place] # (Auto) Eos # (Auto) Baso # (Auto) Immature Gran # (Auto) Absolute Nucleated RBC Nucleated RBC % (auto) RBC Morphology Sodium 138 Potassium 3.6 Chloride 100 Carbon Dioxide 32 Anion Gap 6 BUN 19 Creatinine 0.59 L Est Cr Clr Drug Dosing 97.5 Est GFR ( Amer) 104.6 Est GFR (Non-Af Amer) 90.3 BUN/Creatinine Ratio 32.2 H Glucose 167 H POC Glucose 152 H 212 H Calcium 6.8 L Phosphorus 2.0 L Diagnostic Findings Microbiology 07/20/22 13:20 Urine Culture - Preliminary Urine,Indwelling Cath Yeast not Batool albicans/dub PG Care Time/CCT Total # of Minutes Spent Total Time Spent with Patient: Total time spent is greater than 50% in coordination of care (as documented) at patient's floor/unit and/or counseling patient: Coding Level of Care Code 29114 Subseq Hosp Care Lvl 3 Diagnoses Pulmonary emboli I26.99 Candidal UTI (urinary tract infection) B37.49 Colovesical fistula N32.1 Shock R57.9 Chest tightness R07.89 Sepsis A41.9; R65.20; N17.9 Acute renal failure type: unspecified Sepsis acute organ dysfunction status: with acute organ dysfunction Sepsis type: sepsis due to unspecified organism Severe sepsis acute organ dysfunction type: acute renal failure Severe sepsis shock status: unspecified KAT (acute kidney injury) N17.9 Hypoxia R09.02 Antineoplastic chemotherapy induced pancytopenia D61.810; T45.1X5A Elevated troponin R77.8 Lower extremity edema R60.0 COVID-19 U07.1 Anemia D64.9 Malignant 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 C50.919; C79.51 Hypertension I10 Anxiety and depression F41.9; F32.9 Hypocalcemia E83.51 Moderate obstructive sleep apnea G47.33 Rheumatoid arthritis M06.9 Gout M10.9 Hyperlipidemia E78.5 DVT prophylaxis Z29.9 Morbid obesity with BMI of 40.0-44.9, adult E66.01; Z68.41 (1) Sepsis Acute renal failure type: unspecified Sepsis acute organ dysfunction status: with acute organ dysfunction Sepsis type: sepsis due to unspecified organism Severe sepsis acute organ dysfunction type: acute renal failure Severe sepsis shock status: unspecified Qualified Code(s): A41.9 - Sepsis, unspecified organism; R65.20 - Severe sepsis without septic shock; N17.9 - Acute kidney failure, unspecified
[2022-07-21] MEDS: fentaNYL 25 MCG/HR TDSY TD SCH (20:49)
[2022-07-21] MEDS: VORICONAZOLE 200 MG TABLET PO SCH (20:53)
[2022-07-22] MEDS: HEPARIN 100 UNIT/ML 5ML FLUSH FLUSH PRN (00:32)
[2022-07-22] MEDS: CHECK fentaNYL PATCH PLACEMENT SCH ×3 (00:32→16:29)
[2022-07-22 06:22] LABS: BUN Creatinine Ratio 32.8 (10-20); Calcium 6.7 mg/dl (8.5-10.1); Creatinine Clr Calc Pharmacy 85.8 ml/min; Est GFR (African American) 100.4 ml/min; Est GFR (Non-African American) 86.6 ml/min; Potassium 3.6 mmol/L (3.5-5.1)
[2022-07-22 06:57] LABS: Hematocrit (blood only) 27.6 % (34.1-44.9); Hemoglobin 9.4 g/dl (12.0-16.0); Mean Corpuscular Hemoglobin 31.8 pg (25.0-34.0); Mean Corpuscular Hgb Conc 34.1 g/dL (32.0-36.0); Mean Corpuscular Volume 93.2 fL (80.0-100.0); Mean Platelet Volume 9.6 fL (9.4-12.3); Nucleated RBC # (auto) 0.29 K/uL (0-0); Nucleated RBC % (auto) 11.9 %; Platelet Count 132 K/uL (130-400); RDW Coefficient of Variation 16.8 % (11.5-14.5); RDW Standard Deviation 55.8 fL (36.4-46.3); Red Blood Count 2.96 M/uL (3.93-5.22); White Blood Count 2.43 K/ul (4.8-10.8)
[2022-07-22 07:11] LABS: ALC (manual) 0.34 K/uL (1.2-3.4); ANC (manual) 1.82 K/uL (1.4-6.5); Eosinophils # (manual) 0.02 K/uL (0-0.50); Eosinophils % (manual) 1 %; Lymphocytes # (manual) 0.34 K/uL (1.2-3.4); Lymphocytes % (manual) 14 %; Metamyelocytes # (manual) 0.02 K/uL (0-0); Metamyelocytes % (manual) 1 %; Monocytes % (manual) 4 %; Myelocytes # (manual) 0.12 K/uL (0-0); Myelocytes % (manual) 5 %; Neutrophils # (manual) 1.82 K/uL (1.4-6.5); Neutrophils % (manual) 75 %; Polychromasia 1+; Tear Drop Cells 1+
[2022-07-22] MEDS: INSULIN ASPART PER UNIT SC SCH ×4 (07:44→21:14)
[2022-07-22] MEDS: SUCRALFATE 1 GM/10 ML UDC PO SCH ×4 (07:44→20:14)
[2022-07-22] MEDS: CALCIUM CARBONATE 1250MG TAB PO SCH ×2 (07:45→16:29)
[2022-07-22] MEDS: GABAPENTIN 300 MG CAP PO SCH ×2 (07:46→16:30)
[2022-07-22] MEDS ORDERED: CALCIUM GLUCONATE 10% 2,000 MG in DEXTROSE 5% 50 ML IV ONE ×2 (08:00→16:30)
[2022-07-22] MEDS ORDERED: STAT IV STA ×2 (08:00→16:14)
[2022-07-22] MEDS: METOPROLOL TARTRATE 25 MG TAB PO SCH (08:39)
[2022-07-22] MEDS: PANTOprazole 40 MG TAB PO SCH ×2 (08:39→20:15)
[2022-07-22] MEDS: VORICONAZOLE 200 MG TABLET PO SCH ×2 (08:39→20:17)
[2022-07-22] MEDS: NYSTATIN SUSP 500,000 U/5 ML UDC PO SCH ×4 (08:39→20:14)
[2022-07-22] MEDS: hydroCHLOROthiazide 25 MG TAB PO SCH (08:39)
[2022-07-22] MEDS: POLYETHYLENE (MIRALAX) 17 GM PACK PO SCH ×2 (08:40→20:15)
[2022-07-22] MEDS: ATORVASTATIN 10 MG TAB PO SCH (08:40)
[2022-07-22] MEDS: DULoxetine HCL 60 MG CAP PO SCH (08:40)
[2022-07-22] MEDS: allopurinoL 100 MG TAB PO SCH (08:40)
[2022-07-22] MEDS: dexAMETHasone 4 MG TAB PO SCH (08:40)
[2022-07-22] MEDS: MULTIVITAMIN TAB PO SCH (08:40)
[2022-07-22] MEDS: APIXABAN 5 MG TABLET PO SCH ×2 (08:40→20:15)
[2022-07-22] MEDS: NYSTATIN POWDER 15GM BTL EXT SCH ×2 (08:40→20:16)
[2022-07-22] MEDS: POT PHOSPHATE MONOBASIC W/ SOD TAB PO SCH ×4 (08:45→20:20)
[2022-07-22] MEDS: oxyCODONE HCL 15 MG TABCR (OxyCONTIN) PO SCH ×2 (10:25→20:20)
[2022-07-22] MEDS: FILGRASTIM 300 MCG/ML VIAL SC SCH (10:44)
[2022-07-22] MEDS: CHOLECALCIFEROL 5,000 UNITS 125 MCG TAB PO SCH (10:45)
--- NOTE | 2022-07-22 12:10 | Nephrology Consultation ---
Date of Consultation July 22, 2022 Assessment & Plan (1) Hypocalcemia: Secondary to Xgeva therapy. Thankfully no concerning physical signs of hypocalcemia or EKG changes. Continue calcium carbonate 1250 mg twice daily (not to be given with meals). Calcium gluconate 2 grams provided this AM. Additional, calcium gluconate 2 grams this afternoon. Continue cholecalciferol 5000 units daily. Start calcitriol 0.25 mcg daily. Repeat metabolic profile + calcium + albumin tomorrow AM. Check PO4, magnesium, and PTH with next labs. Plan of care was reviewed with the patient and her daughter today. (2) Pulmonary emboli: Treatment with Eliquis per primary team. Close outpatient follow up with Dr. Prakash. (3) Shock: Improving with treatment. Etiology not entirely clear. Volume status acceptable. History of Present Illness Reason for Consultation: Hypocalcemia Requesting Physician: Dhaval Ballard Attending Physician: Dhaval Ballard History of Present Illness Yamilet Joe is a 72 year-old female with metastatic breast cancer who presented to the ER at [facility] on July 16 with hypoxia and mental status changes. Yamilet was admitted with hypotension and evidence of sepsis in the setting of neutropenia. She is being treated for a suspected fungal UTI with voriconazole. Evaluation revealing multifocal lobar, segmental, and subsegmental pulmonary emboli. Nephrology consultation requested today for assistance with h ypocalcemia. Yamilet has never been previously evaluated by a greens picker. Serum creatinine is normal. I discussed the plan of care with Dr. Fisher this morning. For treatment of osseous metastatic disease, Xgeva was provided on July 15. Corrected serum calcium prior to treatment was 9.1. Corrected calcium this AM, 7.5. Ionized calcium 0.93. 25OH D 44. Serum magnesium 2.3. Yamilet describes some chronic paraesthesias in her feet. She denies muscle contractions, cramps, or fasciculations. She admits to chronic fatigue and generalized weakness from debility. These symptoms are not particularly worse. Appetite is fair. She denies any abdominal pain or discomfort at this time. She follows with Dr. Prakash for management of her breast cancer. Yamilet was admitted to [facility] in June with acute diverticulitis and colovesicular fistula.Dr. Villarreal placed a diverting colostomy on June 21. She was found to have an ESBL E.coli UTI and completed treatment with Zosyn then Augmentin for total of 14 days. Patient had post-operative anemia with Hgb to 6.2 and required 3u PRBCs. There was concern for persistent urine in her ostomy output for which urology consultation has been provided. Medical history is also notable for morbid obesity, hyperlipidemia, anxiety and depression, RA, anemia, gout, and hypertension. Allergies Allergy/AdvReac Type Severity Reaction Status Date / Time No Known Allergies Allergy Verified 07/16/22 21:47 Home Medications Medication Instructions Recorded Confirmed Type cholecalciferol (vitamin D3) 125 5,000 unit PO QDL 04/25/18 07/16/22 History mcg (5,000 unit) capsule Lift chair #1 ea 08/22/20 04/28/22 Rx magnesium oxide 400 mg PO DAILY 10/27/20 07/16/22 History duloxetine 60 mg capsule,delayed 60 mg PO DAILY #90 caps 07/07/21 07/16/22 Rx release calcium carbonate 600 mg calcium 1,200 mg PO BID 08/28/21 07/16/22 History (1,500 mg) tablet (Calcium) CPAP Machine #1 ea 09/08/21 04/28/22 Rx atorvastatin 10 mg tablet 10 mg PO DAILY #90 tabs 09/15/21 07/16/22 Rx allopurinol 100 mg tablet 100 mg PO QAM 03/23/22 07/16/22 History dexamethasone 4 mg tablet 4 mg PO DAILY 04/27/22 07/16/22 History lidocaine 4 % topical patch 1 patch topical DAILY 04/28/22 07/16/22 History polyethylene glycol 3350 17 17 g PO BID 04/28/22 07/16/22 History gram/dose oral powder (Miralax) fentanyl 50 mcg/hr transdermal 50 mcg transdermal Q3D #5 ea 06/01/22 07/16/22 Rx patch gabapentin 300 mg capsule 300 mg PO BID #60 caps 06/01/22 07/16/22 Rx olmesartan 20 mg tablet 20 mg PO DAILY #30 tabs 06/01/22 07/16/22 Rx acetaminophen 325 mg tablet 650 mg PO Q6H PRN PAIN/FEVER 06/19/22 07/16/22 History (Tylenol) aluminum-mag hydroxide-simethicone 30 ml PO Q4H PRN Nausea 06/19/22 07/16/22 History 400 mg-400 mg-40 mg/5 mL oral susp (Maalox Maximum Strength) bisacodyl 5 mg tablet,delayed 10 mg PO QAM 06/19/22 07/16/22 History release bumetanide 2 mg tablet 2 mg PO BID 06/19/22 07/16/22 History lorazepam 0.5 mg tablet 0.5 mg PO Q12H 06/19/22 07/16/22 History menthol 0.44 %-zinc oxide 20.6 % 1 applic topical QS 06/19/22 07/16/22 History topical ointment (Calmoseptine) omeprazole 20 mg tablet,delayed 20 mg PO BID 06/19/22 07/16/22 History release ondansetron HCl 4 mg tablet 4 mg PO Q4H PRN NAUSEA/VOMITING 06/19/22 07/16/22 History potassium chloride 20 mEq 20 meq PO BID 06/19/22 07/16/22 History tablet,extended release prochlorperazine maleate 10 mg 10 mg PO Q4H PRN NAUSEA/VOMITING 06/19/22 07/16/22 History tablet metolazone 2.5 mg tablet 2.5 mg PO DAILY 07/16/22 07/16/22 History multivitamin 1 tab PO DAILY 07/16/22 07/16/22 History ondansetron HCl 8 mg tablet 8 mg PO . EVERY 24 HOURS PRN 07/16/22 07/16/22 History prevent nausea from chemo oxycodone 10 mg tablet 10 mg PO Q4 PRN Pain 07/16/22 07/16/22 History oxycodone 30 mg tablet,crush 30 mg PO Q12H 07/16/22 07/16/22 History resistant,extended release 12 hr Patient History Medical History Claudication of both lower extremities Depression GERD (gastroesophageal reflux disease) controlled Hiatal hernia Hyperlipidemia Hypertension Inflammatory polyarthritis Malignant neoplasm of upper-inner quadrant of left breast in female, estrogen receptor negative (04/24/19) Nocturnal hypoxemia Obesity, morbid, BMI 40.0-49.9 Palliative care encounter Rheumatoid arthritis on Plaquenil/prednisone 5mg daily chronic (mostly affects spine/hip/knee locations, no cervical issues) Spinal stenosis, lumbar region with neurogenic claudication Surgical History Difficult airway for intubation WITH BREAST SURGERY 05/2019 [facility] H/O abdominal surgery (06/21/22) Laparoscopic Assisted Diverting Colostomy(Not Applicable) - Johnnie Villarreal DO History of cholecystectomy History of colonoscopy History of esophagogastroduodenoscopy (EGD) History of lumpectomy of left breast partial History of open reduction and internal fixation (ORIF) procedure right wrist History of tonsillectomy and adenoidectomy History of total abdominal hysterectomy and bilateral salpingo-oophorectomy History of total hip arthroplasty RIGHT 10/2020 History of vascular access device present right chest Status post right foot surgery Family History Mother , age 77 CHF Family history of diabetes mellitus Hypertension Family history of cardiac disorder Diabetes type 2 Deep vein thrombosis Brother , age 49 colon cancer Family hx of colon cancer Colorectal cancer Grandfather Family hx of colon cancer PATERNAL Father , age 60 cardiac arrest Family history of cardiac disorder Myocardial infarction Sister Family history of malignant neoplasm Breast cancer, Onset Age: 50 Son Allergic rhinitis Coronary heart disease Son No problems noted. 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 [employer] How many Children do You have: 3 Feels Safe at Home: Yes Childhood Exposure to Second-Hand Smoke: Yes Diet Comment: low sodium caffeine: Yes during the past year weight has: other Dental Care, Regularly: Yes Physical Activity Frequency: 1-2 Times per Week Seatbelt Use: always Sunscreen Use: Yes (sometimes) Assistive Devices: Walker Review of Systems Review of Systems: All systems reviewed & are unremarkable except as noted in HPI & below Physical Exam Constitutional: well developed and + morbidly obese; no acute distress Eyes: + anicteric sclerae; no corneal abnormality ENMT: Mouth: no oral mucosal abnormality and oral mucous membranes not dry Neck: normal visual inspection and trachea midline Respiratory: normal respiratory effort Auscultation: lungs clear to auscultation bilaterally Cardiovascular: Rate/Rhythm: regular rate Heart Sounds: normal S1 and normal S2 Extremities: + edema Musculoskeletal: Extremities: no cyanosis and no clubbing Skin: + turgor decreased; no jaundice Neurologic: Motor/Sensory: no tremor and no asterixis Psychiatric: Orientation: alert and oriented x 3 Results & Data ([facility]) Vital Signs (Past 12 Hours) Vital Signs Temp Pulse Resp BP Pulse Ox O2 Del Method 07/22/22 08:26 82 24 147/101 H 100 Room Air 07/22/22 09:03 Room Air, CPAP 07/22/22 08:00 66 07/22/22 03:26 36.4 C L 71 13 163/99 H 93 CPAP 07/22/22 02:00 72 14 90 07/22/22 01:00 67 13 93 07/22/22 00:30 65 10 L 91 07/22/22 00:30 139/105 H 07/22/22 00:27 68 15 89 L 07/22/22 00:27 169/106 H Laboratory Results Laboratory Results - last 24 hr 07/21/22 07/21/22 07/22/22 16:31 20:03 05:36 WBC 2.43 L RBC 2.96 L Hgb 9.4 L Hct 27.6 L MCV 93.2 MCH 31.8 MCHC 34.1 RDW Std Deviation 55.8 H RDW Coeff of [place] 16.8 H Plt Count 132 MPV 9.6 Absolute Nucleated RBC 0.29 H Nucleated RBC % (auto) 11.9 Neutrophils % (Manual) 75 Lymphocytes % (Manual) 14 Monocytes % (Manual) 4 Eosinophils % (Manual) 1 Metamyelocytes % (Man) 1 Myelocytes % (Man) 5 Neutrophils # (Manual) 1.82 Total Absolute Neuts 1.82 Lymphocytes # (Manual) 0.34 L Total Abs Lymphocytes 0.34 L Monocytes # (Manual) 0.10 L Eosinophils # (Manual) 0.02 Metamyelocytes # (Man) 0.02 H Myelocytes # (Manual) 0.12 H Polychromasia 1+ Tear Drop Cells 1+ Sodium Potassium Chloride Carbon Dioxide Anion Gap BUN Creatinine Est Cr Clr Drug Dosing Est GFR ( Amer) Est GFR (Non-Af Amer) BUN/Creatinine Ratio Glucose POC Glucose 212 H 169 H Calcium Ionized Calcium 07/22/22 07/22/22 07/22/22 05:36 05:36 07:28 WBC RBC Hgb Hct MCV MCH MCHC RDW Std Deviation RDW Coeff of [place] Plt Count MPV Absolute Nucleated RBC Nucleated RBC % (auto) Neutrophils % (Manual) Lymphocytes % (Manual) Monocytes % (Manual) Eosinophils % (Manual) Metamyelocytes % (Man) Myelocytes % (Man) Neutrophils # (Manual) Total Absolute Neuts Lymphocytes # (Manual) Total Abs Lymphocytes Monocytes # (Manual) Eosinophils # (Manual) Metamyelocytes # (Man) Myelocytes # (Manual) Polychromasia Tear Drop Cells Sodium 137 Potassium 3.6 Chloride 98 Carbon Dioxide 34 H Anion Gap 5 BUN 22 Creatinine 0.67 Est Cr Clr Drug Dosing 85.8 Est GFR ( Amer) 100.4 Est GFR (Non-Af Amer) 86.6 BUN/Creatinine Ratio 32.8 H Glucose 138 H POC Glucose 118 H Calcium 6.7 L Ionized Calcium 0.93 L 07/22/22 11:23 WBC RBC Hgb Hct MCV MCH MCHC RDW Std Deviation RDW Coeff of [place] Plt Count MPV Absolute Nucleated RBC Nucleated RBC % (auto) Neutrophils % (Manual) Lymphocytes % (Manual) Monocytes % (Manual) Eosinophils % (Manual) Metamyelocytes % (Man) Myelocytes % (Man) Neutrophils # (Manual) Total Absolute Neuts Lymphocytes # (Manual) Total Abs Lymphocytes Monocytes # (Manual) Eosinophils # (Manual) Metamyelocytes # (Man) Myelocytes # (Manual) Polychromasia Tear Drop Cells Sodium Potassium Chloride Carbon Dioxide Anion Gap BUN Creatinine Est Cr Clr Drug Dosing Est GFR ( Amer) Est GFR (Non-Af Amer) BUN/Creatinine Ratio Glucose POC Glucose 161 H Calcium Ionized Calcium PG Care Time/CCT Total # of Minutes Spent Total Time Spent with Patient: Total time spent is greater than 50% in coordination of care (as documented) at patient's floor/unit and/or counseling patient: Coding Level of Care Code 58149 Inpt Consult Level 4 Diagnoses Hypocalcemia E83.51 Pulmonary emboli I26.99 Shock R57.9
[2022-07-22] MEDS: CALCITRIOL 0.25 MCG CAPSULE PO SCH (13:10)
[2022-07-22 13:22] LABS: Appearance Urine Cloudy (Clear); Bilirubin Urine Negative (Negative); Blood Urine 3+ (Negative); Color Urine Dark Yellow; Epithelial Cell Urine Auto 20-30 /lpf (0-5); Glucose Urine UA Trace (Negative); Ketones Urine Negative (Negative); Leukocyte Esterase Urine 2+ (Negative); Nitrite Urine Negative (Negative); Protein Urine 1+ (Negative); RBC Urine Automated >30 /hpf (0-4); Urobilinogen Urine Negative (Negative); WBC Urine Automated >30 /hpf (0-5)
[2022-07-22 13:52] LABS: Bacteria Urine Automated 1+ (Negative)
--- NOTE | 2022-07-22 15:50 | Infectious Disease Consult ---
Date of Consultation July 22, 2022 Assessment & Plan (1) Candidal UTI (urinary tract infection): (2) Pulmonary emboli: (3) Shock: (4) Malignant 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: Plan This is a 72 year old female with a pmh of metastatic breast cancer sp XRT and chemotherapy with Xgeva (last received 07/15/22), Rheumatoid Arthritis on cheonic prednisone, gout, recent admission (06/19/22-06/29/22) with perforated diverticulitis and colovesicular fistula s/p partial colectomy with diverting colostomy; also treated for UTI with ESBL E. coli (completed 14 days of antibiotics Zosyn--->Augmentin), ound to be covid 19 positive on day of discharge (06/29/22) now presents from custodial with increasing confusion, lethargy , weakness and hypoxia. There was also report of urine noted in her colostomy bag. In the Ed she was noted to be afebrile, hypotensive with a BP of 58/49 and hypoxic with o2 saturation in the 70s. She was placed on CPAP then Nasal canula and received 3 L of fluids. She remained hypotensive and was started on pressors with levophed. Admission labs were noted for a wbc of 4.29 ( trended down to a new of 0.63, now 2.43), plts 134, creatinine 2.4, hs troponin 16.7, Covid 19 testing positive, inf a/b a rsv negative. Clean catch urinalysis was turbid with trace protein, >30 wbc, 5-10 rbc, 5-10 epithelial cells, 3+ leuk esterase, 2 + bacteria, budding yeast. UC showed multiple bacterial morphotypes,mixed probable skin kana . A pulido catheter was placed. Cxr showed no acute cardiopulmonary abnormality. CTAB without contrast shows no acute infectious or inflammatory changes in the abdomen or pelvis. CTA lung showed multifocal lobar, segmental, and subsegmental pulmonary emboli, lower lob atelectasis and multifocal sclerotic foci in the bones compatible with known metastatic disease. Dopplers of the bilateral lower extremities were negative for DVt. Head Ct was unremarkable. She was admitted to ICU, and empirically started on Ertapenem which was switched to Meropenem. Bc were obtained and remain sterile. She was started on heparin drip and is now on Eliquis. There was concern for adrenal insufficiency as she is on chronic steroids for RA so stress dose steroids were initiated. Her hospital course was complicated by neutropenia/pancytipenia thought to be chemotherapy induced. Neutropenia is improving on Filgrastim A repeat UC was obtained from pulido catheter on 07/20 and noted for > 30 epithelial cells, trace leuk est, 10-30 WBC ,negative for bacteria and again noted for budding yeast with hyphae. Prelim urine culture noted for yeast, non batool albicans/non dub. She was started on voriconazole. Meropenem was discontinued. She was evaluated by urology for evaluation of possible persistent colovesicular fistula. No surgical intervention was recommend givne her recent complex abdominal surgery and medical comorbidities and ongoing chemotherapy. ID was consulted for evaluation of yeast in urine. At my visit, she is comfortable and sitting up in chair asking when she can go home. Her daughter in law is on phone during visit and provides additional information. The patient complains of chronic bone and joint pain from RA and metastatic cancer to bone and ongoing BL LE edema.. She denies cough, fever, sob, n/v headaches,, vision change, abdominal pain, dysuria, change in urine habits, change in stool consistency, rash. MICRO BC 07/16 NGTD UC 07/16 from straight cath, More than three types of organisms present, all high count,mixed probable skin kana UC 07/20 from indwelling cath, Yeast not Batool albicans/dub Antiinfective: ertapenem 07/16 meropenem 07/17-07/20 voriconazole 07/21- ongoing 1. Shock- undifferentiated; likely multifatorial sepsis vs adrenal insufficiency vs PE with mod clot burden - No ron evidence of lung, skin , urine or abdominal infection. BC sterile -on chronic steroids for RA - Lactate normal on admission - weaned off pressors - off stress dose pressors - afebrile throughout - leukopenia, thrombocytopenia ( improving ) 2. Yeast, budding yeast with hyphae in urine - yeast is non batool albicans/dubli ( ? from pulido) 07/20 - started on voriconazole on 07/21 - no urinary symptoms. pulido removed. Urinalysis with many epi cells c/f colonization or contamination: unclear of urine was obtained from initial pulido ( but labeled as so) - no evidence of candidal skin infection under pannus or in G/U area on exam. - BC sterile, R port looks clean - h/o colovesicular fistula 3 Pulmonary emboli - in setting of malignancy, recent Covid 19 infection -BL LE dopplers negative for DVt -heparin drip--> apixiban -hypoxic on admission---> now RA 4. Metastatic breast ca to bone on chemo -sp palliative XRt - Sp 2 rounds of palliative chemotherapy ( last dose 07/15 day prior to admission) 5. Sp Diverticulitis H/O recent colovesicular fistula sp left colectomy and diverting colostomy - ? of continued fibula; report of urine in colostomy bag per [place] staff, but not seen during hosp stay 7. RA on chronic steroids -initially prednisone ---> now dexamethasone 8 Recent Covid 19 infection - tested + 3 weeks ago on 06/26 - still testing positive 07/16 - presenting respiratory symptoms likely more from PE than recent covid ( now on RA) 9. RUE swelling and pain - R Picc line site appear red and mildly irritated - Right hand edematous and tender at prior IV site - h/o Right wrist ORIF 10. KAT -improving 11. History of ESBL ecoli in urine 06/15/22 - sp treatment with Zosyn --> augmentin . - Urine cx keara admission without significant bacteria. Discussion . It is unclear if the yeast in urine contributed to her presentation. It is less likely the source of her presentation or contributing to infectionbut not impossible given her immunocompromised state and recent chemotherapy. What makes it less likely is her that both urinalysis samples appear contaminated - Many epithelia cells on both samples 07/16- straight cath and 07/20 ( pulido). Ther is no significant predominate bacteria, but both samples noted for budding yeast. The 07/20 sample appears to have been obtained from PULIDO and prelim + for yeast . It does not appear that the repeat UC was collected because of new urinary symptoms or fever. It is unclear at this time if a colovesicular fistular persists ( not seen on CTAB, but no contrast) . If still present, yeast ( gi kana) would not be surprising to see in urine especially if sample obtained from pulido. What makes infection hard to rule out is the shock like picture she presented with and no definite etiology. She reports that since the initiation of voriconazole she is feeling better overall, but pulido also removed around the s zane time. She denies localized urinary symptoms pre or during admission, however she was confused and lethargic on admission. She is back to cognitive baseline. Recommendations Overall I think a fungal Uti is less likely but cant rule it out so continue antifungal coverage. Mostly all non albicans speces except batool auris, possibly parapsilosis, are susceptible to echinocandins ( Ie Iv micafungin ). Similarly most non batool sp are susceptible to voriconazole, but Batool glabrata or krusei may or may not; would need susceptibility to confirm. For now can continue voriconazole pending susceptibility data -- fentalyl dosing adjusted as voriconazoe can potentiate. She is feeling better on therapy and clinically improving. If decompensates , would switch to Micafungin. - Check serum cryptococcus antigen (ordered) - check Fungal blood culture from port and picc to rule out invasive batool infection ( not likely) - will follow up yeast Id and sensi - would not repeat urinalysis and urine culture unless patient is symptomatic for UTI. -Check U/S hand and at picc site to rule out clot vs developing abscess Long discussion with Patient''s daughter in law Pink on phone during teleID visit per her request. Alll questions answered Thank you for allowing me to participate in the care of your patient. Infectious Disease will continue to follow with you. Jose Daniel Roque MD, MPH Infectious Disease [facility] Consultation Information Consultation was provided via telemedicine using two-way real-time interactive telecommunication between the patient and the telemedicine provider. For the duration of the visit, the provider was performing the assessment from a different facility than the patient. This includesuse of bluetooth stethoscope forauscultationperformed by the telepresenter that the telemedicine provider can hear if described in the physical exam. Plant Breeder Scientist contact information: Please call [facility] Call Center [phone]. (Phone Number For Physician Use Only) After establishing a telemedicine visit, patient was: Patient/authorized rep acknowledged consent and understanding and Gave permission to continue telehealth session Time Spent w Inpatient: 80 minutes History of Present Illness Reason for Consultation: Yeast in urine culture Requesting Physician: Dhaval Ballard Attending Physician: Dhaval Ballard History of Present Illness This is a 72 year old female with a pmh of metastatic breast cancer sp XRT and chemotherapy with Xgeva (last received 07/15/22), Rheumatoid Arthritis on cheonic prednisone, gout, recent admission (06/19/22-06/29/22) with perforated diverticulitis and colovesicular fistula s/p partial colectomy with diverting colostomy; also treated for UTI with ESBL E. coli (completed 14 days of antibiotics Zosyn--->Augmentin), ound to be covid 19 positive on day of discharge (06/29/22) now presents from custodial with increasing confusion, lethargy , weakness and hypoxia. There was also report of urine noted in her colostomy bag. In the Ed she was noted to be afebrile, hypotensive with a BP of 58/49 and hypoxic with o2 saturation in the 70s. She was placed on CPAP then Nasal canula and received 3 L of fluids. She remained hypotensive and was started on pressors with levophed. Admission labs were noted for a wbc of 4.29 ( trended down to a new of 0.63, now 2.43), plts 134, creatinine 2.4, hs troponin 16.7, Covid 19 testing positive, inf a/b a rsv negative. Clean catch urinalysis was turbid with trace protein, >30 wbc, 5-10 rbc, 5-10 epithelial cells, 3+ leuk esterase, 2 + bacteria, budding yeast. UC showed multiple bacterial morphotypes,mixed probable skin kana . A pulido catheter was placed. Cxr showed no acute cardiopulmonary abnormality. CTAB without contrast shows no acute infectious or inflammatory changes in the abdomen or pelvis. CTA lung showed multifocal lobar, segmental, and subsegmental pulmonary emboli, lower lob atelectasis and multifocal sclerotic foci in the bones compatible with known metastatic disease. Dopplers of the bilateral lower extremities were negative for DVt. Head Ct was unremarkable. She was admitted to ICU, and empirically started on Ertapenem which was switched to Meropenem. Bc were obtained and remain sterile. She was started on heparin drip and is now on Eliquis. There was concern for adrenal insufficiency as she is on chronic steroids for RA so stress dose steroids were initiated. Her hospital course was complicated by neutropenia/pancytipenia thought to be chemotherapy induced. Neutropenia is improving on Filgrastim A repeat UC was obtained from pulido catheter on 07/20 and noted for > 30 epithelial cells, trace leuk est, 10-30 WBC ,negative for bacteria and again noted for budding yeast with hyphae. Prelim urine culture noted for yeast, non batool albicans/non dub. She was started on voriconazole. Meropenem was discontinued. She was evaluated by urology for evaluation of possible persistent colovesicular fistula. No surgical intervention was recommend givne her recent complex abdominal surgery and medical comorbidities and ongoing chemotherapy. ID was consulted for evaluation of yeast in urine. At my visit, she is comfortable and sitting up in chair asking when she can go home. Her daughter in law is on phone during visit and provides additional information. The patient complains of chronic bone and joint pain from RA and metastatic cancer to bone and ongoing BL LE edema.. She denies cough, fever, sob, n/v headaches,, vision change, abdominal pain, dysuria, change in urine habits, change in stool consistency, rash. Allergies Allergy/AdvReac Type Severity Reaction Status Date / Time No Known Allergies Allergy Verified 07/16/22 21:47 Home Medications Medication Instructions Recorded Confirmed Type cholecalciferol (vitamin D3) 125 5,000 unit PO QDL 04/25/18 07/16/22 History mcg (5,000 unit) capsule Lift chair #1 ea 08/22/20 04/28/22 Rx magnesium oxide 400 mg PO DAILY 10/27/20 07/16/22 History duloxetine 60 mg capsule,delayed 60 mg PO DAILY #90 caps 07/07/21 07/16/22 Rx release calcium carbonate 600 mg calcium 1,200 mg PO BID 08/28/21 07/16/22 History (1,500 mg) tablet (Calcium) CPAP Machine #1 ea 09/08/21 04/28/22 Rx atorvastatin 10 mg tablet 10 mg PO DAILY #90 tabs 09/15/21 07/16/22 Rx allopurinol 100 mg tablet 100 mg PO QAM 03/23/22 07/16/22 History dexamethasone 4 mg tablet 4 mg PO DAILY 04/27/22 07/16/22 History lidocaine 4 % topical patch 1 patch topical DAILY 04/28/22 07/16/22 History polyethylene glycol 3350 17 17 g PO BID 04/28/22 07/16/22 History gram/dose oral powder (Miralax) fentanyl 50 mcg/hr transdermal 50 mcg transdermal Q3D #5 ea 06/01/22 07/16/22 Rx patch gabapentin 300 mg capsule 300 mg PO BID #60 caps 06/01/22 07/16/22 Rx olmesartan 20 mg tablet 20 mg PO DAILY #30 tabs 06/01/22 07/16/22 Rx acetaminophen 325 mg tablet 650 mg PO Q6H PRN PAIN/FEVER 06/19/22 07/16/22 History (Tylenol) aluminum-mag hydroxide-simethicone 30 ml PO Q4H PRN Nausea 06/19/22 07/16/22 History 400 mg-400 mg-40 mg/5 mL oral susp (Maalox Maximum Strength) bisacodyl 5 mg tablet,delayed 10 mg PO QAM 06/19/22 07/16/22 History release bumetanide 2 mg tablet 2 mg PO BID 06/19/22 07/16/22 History lorazepam 0.5 mg tablet 0.5 mg PO Q12H 06/19/22 07/16/22 History menthol 0.44 %-zinc oxide 20.6 % 1 applic topical QS 06/19/22 07/16/22 History topical ointment (Calmoseptine) omeprazole 20 mg tablet,delayed 20 mg PO BID 06/19/22 07/16/22 History release ondansetron HCl 4 mg tablet 4 mg PO Q4H PRN NAUSEA/VOMITING 06/19/22 07/16/22 History potassium chloride 20 mEq 20 meq PO BID 06/19/22 07/16/22 History tablet,extended release prochlorperazine maleate 10 mg 10 mg PO Q4H PRN NAUSEA/VOMITING 06/19/22 07/16/22 History tablet metolazone 2.5 mg tablet 2.5 mg PO DAILY 07/16/22 07/16/22 History multivitamin 1 tab PO DAILY 07/16/22 07/16/22 History ondansetron HCl 8 mg tablet 8 mg PO . EVERY 24 HOURS PRN 07/16/22 07/16/22 History prevent nausea from chemo oxycodone 10 mg tablet 10 mg PO Q4 PRN Pain 07/16/22 07/16/22 History oxycodone 30 mg tablet,crush 30 mg PO Q12H 07/16/22 07/16/22 History resistant,extended release 12 hr Patient History Medical History Claudication of both lower extremities Depression GERD (gastroesophageal reflux disease) controlled Hiatal hernia Hyperlipidemia Hypertension Inflammatory polyarthritis Malignant neoplasm of upper-inner quadrant of left breast in female, estrogen receptor negative (04/24/19) Nocturnal hypoxemia Obesity, morbid, BMI 40.0-49.9 Palliative care encounter Rheumatoid arthritis on Plaquenil/prednisone 5mg daily chronic (mostly affects spine/hip/knee locations, no cervical issues) Spinal stenosis, lumbar region with neurogenic claudication Surgical History Difficult airway for intubation WITH BREAST SURGERY 05/2019 [facility] H/O abdominal surgery (06/21/22) Laparoscopic Assisted Diverting Colostomy(Not Applicable) - Johnnie Villarreal DO History of cholecystectomy History of colonoscopy History of esophagogastroduodenoscopy (EGD) History of lumpectomy of left breast partial History of open reduction and internal fixation (ORIF) procedure right wrist History of tonsillectomy and adenoidectomy History of total abdominal hysterectomy and bilateral salpingo-oophorectomy History of total hip arthroplasty RIGHT 10/2020 History of vascular access device present right chest Status post right foot surgery Family History Mother , age 77 CHF Family history of diabetes mellitus Hypertension Family history of cardiac disorder Diabetes type 2 Deep vein thrombosis Brother , age 49 colon cancer Family hx of colon cancer Colorectal cancer Grandfather Family hx of colon cancer PATERNAL Father , age 60 cardiac arrest Family history of cardiac disorder Myocardial infarction Sister Family history of malignant neoplasm Breast cancer, Onset Age: 50 Son Allergic rhinitis Coronary heart disease Son No problems noted. 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 Pertinent positives as per HPI. Physical Exam Constitutional: Awake, alert and in NAD, sitting in chair Head without hair Eyes: PERRL, EOMI, anicteric sclera ENMT: throat clear, no thrush or oral lesions Neck: Supple Respiratory: Clear to auscultation. No rhonchi, wheeze or rales Right chest port. Insertion site, clean, not tender. No evidence of infection at the site Cardiovascular: S1S2 heard, RRR Gastrointestinal (Abdomen): Soft. obese, large pannus. colostomy in place on RLQ- no stool in bag, No urine noted in bag, Stump healthy appearing. No karimi prapubic or CVA tenderness. No pulido in place Musculoskeletal: BL LE 2+ pitting edema, RUE picc line in AC fossa- area is red and edematous. Right hand edematous, tender, red, warm at prior IV site. Can extend and flex fingers and wrists. Skin: Also see MSK exam. Some ecchymosis on BL UE at prior IV sites, No evidence of fungal skin infection. Under abdominal pannus has white antifungal poweder. Neurologic: Awake, alert, oriented times 3. Answers all questions appropriatedly Psychiatric: Cooperative, appropriate. Lymphatic: No cervival of inguinal adenopathy Results & Data ([facility]) Vital Signs (Past 12 Hours) Vital Signs Temp Pulse Resp BP Pulse Ox O2 Del Method 07/22/22 10:50 78 18 132/77 94 Room Air 07/22/22 08:26 82 24 147/101 H 100 Room Air 07/22/22 09:03 Room Air, CPAP 07/22/22 08:00 66 07/22/22 03:26 36.4 C L 71 13 163/99 H 93 CPAP Laboratory Results Laboratory Results - last 48 hr 07/20/22 07/20/22 07/21/22 16:21 20:19 07:49 WBC RBC Hgb Hct MCV MCH MCHC RDW Std Deviation RDW Coeff of [place] Plt Count MPV Immature Gran % (Auto) Neut % (Auto) Lymph % (Auto) [place] % (Auto) Eos % (Auto) Baso % (Auto) Neut # (Auto) Lymph # (Auto) [place] # (Auto) Eos # (Auto) Baso # (Auto) Immature Gran # (Auto) Absolute Nucleated RBC Nucleated RBC % (auto) Neutrophils % (Manual) Lymphocytes % (Manual) Monocytes % (Manual) Eosinophils % (Manual) Metamyelocytes % (Man) Myelocytes % (Man) Neutrophils # (Manual) Total Absolute Neuts Lymphocytes # (Manual) Total Abs Lymphocytes Monocytes # (Manual) Eosinophils # (Manual) Metamyelocytes # (Man) Myelocytes # (Manual) RBC Morphology Polychromasia Tear Drop Cells Sodium Potassium Chloride Carbon Dioxide Anion Gap BUN Creatinine Est Cr Clr Drug Dosing Est GFR ( Amer) Est GFR (Non-Af Amer) BUN/Creatinine Ratio Glucose POC Glucose 165 H 153 H 116 H Calcium Ionized Calcium Phosphorus Urine Color Urine Appearance Urine pH Ur Specific [place] Urine Protein Urine Glucose (UA) Urine Ketones Urine Blood Urine Nitrite Urine Bilirubin Urine Urobilinogen Ur Leukocyte Esterase Urine WBC (Auto) Urine RBC (Auto) U Hyaline Cast (Auto) U Epithel Cells (Auto) Urine Bacteria (Auto) 07/21/22 07/21/22 07/21/22 08:31 08:31 11:06 WBC 1.75 L RBC 2.92 L Hgb 9.3 L Hct 27.4 L MCV 93.8 MCH 31.8 MCHC 33.9 RDW Std Deviation 56.8 H RDW Coeff of [place] 16.7 H Plt Count 119 L MPV 9.8 Immature Gran % (Auto) 4.6 Neut % (Auto) 79.4 Lymph % (Auto) 12.6 [place] % (Auto) 1.1 Eos % (Auto) 1.7 Baso % (Auto) 0.6 Neut # (Auto) 1.39 L Lymph # (Auto) 0.22 L [place] # (Auto) 0.02 L Eos # (Auto) 0.03 Baso # (Auto) 0.01 Immature Gran # (Auto) 0.08 H Absolute Nucleated RBC 0.05 H Nucleated RBC % (auto) 2.9 Neutrophils % (Manual) Lymphocytes % (Manual) Monocytes % (Manual) Eosinophils % (Manual) Metamyelocytes % (Man) Myelocytes % (Man) Neutrophils # (Manual) Total Absolute Neuts Lymphocytes # (Manual) Total Abs Lymphocytes Monocytes # (Manual) Eosinophils # (Manual) Metamyelocytes # (Man) Myelocytes # (Manual) RBC Morphology Unremarkable Polychromasia Tear Drop Cells Sodium 138 Potassium 3.6 Chloride 100 Carbon Dioxide 32 Anion Gap 6 BUN 19 Creatinine 0.59 L Est Cr Clr Drug Dosing 97.5 Est GFR ( Amer) 104.6 Est GFR (Non-Af Amer) 90.3 BUN/Creatinine Ratio 32.2 H Glucose 167 H POC Glucose 152 H Calcium 6.8 L Ionized Calcium Phosphorus 2.0 L Urine Color Urine Appearance Urine pH Ur Specific [place] Urine Protein Urine Glucose (UA) Urine Ketones Urine Blood Urine Nitrite Urine Bilirubin Urine Urobilinogen Ur Leukocyte Esterase Urine WBC (Auto) Urine RBC (Auto) U Hyaline Cast (Auto) U Epithel Cells (Auto) Urine Bacteria (Auto) 07/21/22 07/21/22 07/22/22 16:31 20:03 05:36 WBC 2.43 L RBC 2.96 L Hgb 9.4 L Hct 27.6 L MCV 93.2 MCH 31.8 MCHC 34.1 RDW Std Deviation 55.8 H RDW Coeff of [place] 16.8 H Plt Count 132 MPV 9.6 Immature Gran % (Auto) Neut % (Auto) Lymph % (Auto) [place] % (Auto) Eos % (Auto) Baso % (Auto) Neut # (Auto) Lymph # (Auto) [place] # (Auto) Eos # (Auto) Baso # (Auto) Immature Gran # (Auto) Absolute Nucleated RBC 0.29 H Nucleated RBC % (auto) 11.9 Neutrophils % (Manual) 75 Lymphocytes % (Manual) 14 Monocytes % (Manual) 4 Eosinophils % (Manual) 1 Metamyelocytes % (Man) 1 Myelocytes % (Man) 5 Neutrophils # (Manual) 1.82 Total Absolute Neuts 1.82 Lymphocytes # (Manual) 0.34 L Total Abs Lymphocytes 0.34 L Monocytes # (Manual) 0.10 L Eosinophils # (Manual) 0.02 Metamyelocytes # (Man) 0.02 H Myelocytes # (Manual) 0.12 H RBC Morphology Polychromasia 1+ Tear Drop Cells 1+ Sodium Potassium Chloride Carbon Dioxide Anion Gap BUN Creatinine Est Cr Clr Drug Dosing Est GFR ( Amer) Est GFR (Non-Af Amer) BUN/Creatinine Ratio Glucose POC Glucose 212 H 169 H Calcium Ionized Calcium Phosphorus Urine Color Urine Appearance Urine pH Ur Specific [place] Urine Protein Urine Glucose (UA) Urine Ketones Urine Blood Urine Nitrite Urine Bilirubin Urine Urobilinogen Ur Leukocyte Esterase Urine WBC (Auto) Urine RBC (Auto) U Hyaline Cast (Auto) U Epithel Cells (Auto) Urine Bacteria (Auto) 07/22/22 07/22/22 07/22/22 05:36 05:36 07:28 WBC RBC Hgb Hct MCV MCH MCHC RDW Std Deviation RDW Coeff of [place] Plt Count MPV Immature Gran % (Auto) Neut % (Auto) Lymph % (Auto) [place] % (Auto) Eos % (Auto) Baso % (Auto) Neut # (Auto) Lymph # (Auto) [place] # (Auto) Eos # (Auto) Baso # (Auto) Immature Gran # (Auto) Absolute Nucleated RBC Nucleated RBC % (auto) Neutrophils % (Manual) Lymphocytes % (Manual) Monocytes % (Manual) Eosinophils % (Manual) Metamyelocytes % (Man) Myelocytes % (Man) Neutrophils # (Manual) Total Absolute Neuts Lymphocytes # (Manual) Total Abs Lymphocytes Monocytes # (Manual) Eosinophils # (Manual) Metamyelocytes # (Man) Myelocytes # (Manual) RBC Morphology Polychromasia Tear Drop Cells Sodium 137 Potassium 3.6 Chloride 98 Carbon Dioxide 34 H Anion Gap 5 BUN 22 Creatinine 0.67 Est Cr Clr Drug Dosing 85.8 Est GFR ( Amer) 100.4 Est GFR (Non-Af Amer) 86.6 BUN/Creatinine Ratio 32.8 H Glucose 138 H POC Glucose 118 H Calcium 6.7 L Ionized Calcium 0.93 L Phosphorus Urine Color Urine Appearance Urine pH Ur Specific [place] Urine Protein Urine Glucose (UA) Urine Ketones Urine Blood Urine Nitrite Urine Bilirubin Urine Urobilinogen Ur Leukocyte Esterase Urine WBC (Auto) Urine RBC (Auto) U Hyaline Cast (Auto) U Epithel Cells (Auto) Urine Bacteria (Auto) 07/22/22 07/22/22 11:23 12:55 WBC RBC Hgb Hct MCV MCH MCHC RDW Std Deviation RDW Coeff of [place] Plt Count MPV Immature Gran % (Auto) Neut % (Auto) Lymph % (Auto) [place] % (Auto) Eos % (Auto) Baso % (Auto) Neut # (Auto) Lymph # (Auto) [place] # (Auto) Eos # (Auto) Baso # (Auto) Immature Gran # (Auto) Absolute Nucleated RBC Nucleated RBC % (auto) Neutrophils % (Manual) Lymphocytes % (Manual) Monocytes % (Manual) Eosinophils % (Manual) Metamyelocytes % (Man) Myelocytes % (Man) Neutrophils # (Manual) Total Absolute Neuts Lymphocytes # (Manual) Total Abs Lymphocytes Monocytes # (Manual) Eosinophils # (Manual) Metamyelocytes # (Man) Myelocytes # (Manual) RBC Morphology Polychromasia Tear Drop Cells Sodium Potassium Chloride Carbon Dioxide Anion Gap BUN Creatinine Est Cr Clr Drug Dosing Est GFR ( Amer) Est GFR (Non-Af Amer) BUN/Creatinine Ratio Glucose POC Glucose 161 H Calcium Ionized Calcium Phosphorus Urine Color Dark Yellow Urine Appearance Cloudy A Urine pH 7.0 Ur Specific [place] 1.020 Urine Protein 1+ H Urine Glucose (UA) Trace H Urine Ketones Negative Urine Blood 3+ H Urine Nitrite Negative Urine Bilirubin Negative Urine Urobilinogen Negative Ur Leukocyte Esterase 2+ H Urine WBC (Auto) >30 H Urine RBC (Auto) >30 H U Hyaline Cast (Auto) 1-5 U Epithel Cells (Auto) 20-30 H Urine Bacteria (Auto) 1+ H Diagnostic Findings CtAB w/o IV contrast 07/16/22 CtAB w/o IV contrast 07/16/22 IMPRESSION: 1. No acute infectious or inflammatory findings are identified in the abdomen or pelvis 2. Again seen is postsurgical change from left colon resection and left lower quadrant colostomy. No bowel obstruction is seen. 3. 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 4. Bilateral sacral insufficiency fractures are again noted with evidence of prior cement fixation. 5. Cardiomegaly. 6. Small left pleural effusion with left basilar consolidation. This is similar to previous. 7. Moderate hiatal hernia. CT head 07/16/22 IMPRESSION: There is no hemorrhage, mass effect, or evidence of acute territorial ischemia by CT criteria. BL LE doppler 07/17/22 IMPRESSION: There is no sonographic evidence of deep venous thrombosis identified in the right or left lower extremity. CTA Chest 07/18/22 IMPRESSION: 1. Multifocal lobar, segmental, and subsegmental pulmonary emboli without evidence of right heart strain. 2. Small left pleural effusion. Lower lobe atelectasis, left greater than right. 3. Multifocal sclerotic foci in the bones compatible with metastatic disease. Microbiology 07/20/22 13:20 Urine,Indwelling Cath Urine Culture - Preliminary Yeast not Batool albicans/dub 07/16/22 18:25 Blood Aerobic Blood Culture - Final No growth in Aerobic bottle after 5 days. 07/16/22 18:25 Blood Anaerobic Blood Culture - Final No growth in Anaerobic bottle after 5 days. 07/16/22 18:09 Blood Aerobic Blood Culture - Final No growth in Aerobic bottle after 5 days. 07/16/22 18:09 Blood Anaerobic Blood Culture - Final No growth in Anaerobic bottle after 5 days. 07/16/22 19:40 Urine,Straight Cath Urine Culture - Final More than three types of organisms present, all high counts mixed probable skin kana - No further identifications or sensitivities to follow. Medications Administered Home Medications Medication Instructions Recorded Confirmed Last Taken cholecalciferol (vitamin D3) 125 5,000 unit PO QDL 04/25/18 07/16/22 07/16/22 mcg (5,000 unit) capsule Lift chair #1 ea 08/22/20 04/28/22 Unknown magnesium oxide 400 mg PO DAILY 10/27/20 07/16/22 07/16/22 duloxetine 60 mg capsule,delayed 60 mg PO DAILY #90 caps 07/07/21 07/16/22 07/16/22 release calcium carbonate 600 mg calcium 1,200 mg PO BID 08/28/21 07/16/22 07/16/22 (1,500 mg) tablet (Calcium) CPAP Machine #1 ea 09/08/21 04/28/22 Unknown atorvastatin 10 mg tablet 10 mg PO DAILY #90 tabs 09/15/21 07/16/22 07/15/22 allopurinol 100 mg tablet 100 mg PO QAM 03/23/22 07/16/22 07/16/22 dexamethasone 4 mg tablet 4 mg PO DAILY 04/27/22 07/16/22 07/16/22 lidocaine 4 % topical patch 1 patch topical DAILY 04/28/22 07/16/22 07/16/22 polyethylene glycol 3350 17 17 g PO BID 04/28/22 07/16/22 07/16/22 08:30 gram/dose oral powder (Miralax) fentanyl 50 mcg/hr transdermal 50 mcg transdermal Q3D #5 ea 06/01/22 07/16/22 07/15/22 patch gabapentin 300 mg capsule 300 mg PO BID #60 caps 06/01/22 07/16/22 07/16/22 olmesartan 20 mg tablet 20 mg PO DAILY #30 tabs 06/01/22 07/16/22 07/16/22 acetaminophen 325 mg tablet 650 mg PO Q6H PRN PAIN/FEVER 06/19/22 07/16/2206/01 (Tylenol) aluminum-mag hydroxide-simethicone 30 ml PO Q4H PRN Nausea 06/19/22 07/16/22 Unknown 400 mg-400 mg-40 mg/5 mL oral susp (Maalox Maximum Strength) bisacodyl 5 mg tablet,delayed 10 mg PO QAM 06/19/22 07/16/22 07/16/22 release bumetanide 2 mg tablet 2 mg PO BID 06/19/22 07/16/22 07/16/22 lorazepam 0.5 mg tablet 0.5 mg PO Q12H 06/19/22 07/16/22 07/16/22 08:30 menthol 0.44 %-zinc oxide 20.6 % 1 applic topical QS 06/19/22 07/16/22 07/16/22 topical ointment (Calmoseptine) 3-11 shift omeprazole 20 mg tablet,delayed 20 mg PO BID 06/19/22 07/16/22 07/16/22 08:30 release ondansetron HCl 4 mg tablet 4 mg PO Q4H PRN NAUSEA/VOMITING 06/19/22 07/16/22 07/16/22 potassium chloride 20 mEq 20 meq PO BID 06/19/22 07/16/22 07/16/22 tablet,extended release prochlorperazine maleate 10 mg 10 mg PO Q4H PRN NAUSEA/VOMITING 06/19/22 07/16/22 Unknown tablet metolazone 2.5 mg tablet 2.5 mg PO DAILY 07/16/22 07/16/22 07/16/22 multivitamin 1 tab PO DAILY 07/16/22 07/16/22 07/16/22 ondansetron HCl 8 mg tablet 8 mg PO . EVERY 24 HOURS PRN 07/16/22 07/16/22 07/15/22 prevent nausea from chemo oxycodone 10 mg tablet 10 mg PO Q4 PRN Pain 07/16/22 07/16/22 07/16/22 03:13 oxycodone 30 mg tablet,crush 30 mg PO Q12H 07/16/22 07/16/22 07/16/22 08:30 resistant,extended release 12 hr Active Medications Generic Name Dose Route Start Last Admin Trade Name Vimal PRN Reason Stop Dose Admin Allopurinol 100 mg 07/18/22 09:00 07/22/22 08:40 Allopurinol 100 Mg Tab PO 08/17/22 08:59 100 mg QAM JANE Administration Apixaban 10 mg 07/20/22 09:00 07/22/22 08:40 Apixaban 5 Mg Tablet PO 07/26/22 21:01 10 mg BID JANE Administration Atorvastatin Calcium 10 mg 07/17/22 09:00 07/22/22 08:40 Atorvastatin 10 Mg Tab PO 08/16/22 08:59 10 mg DAILY JANE Administration Calcitriol 0.25 mcg 07/22/22 12:30 07/22/22 13:10 Calcitriol 0.25 Mcg Capsule PO 08/21/22 12:29 0.25 mcg QAM JANE Administration Calcium Carbonate 1,250 mg 07/18/22 08:30 07/22/22 07:45 Calcium Carbonate 1250mg Tab PO 08/17/22 08:29 1,250 mg BID@0830,1630 JANE Administration Dexamethasone 4 mg 07/21/22 09:00 07/22/22 08:40 Dexamethasone 4 Mg Tab PO 08/20/22 08:59 4 mg DAILY JANE Administration Duloxetine HCl 60 mg 07/17/22 09:00 07/22/22 08:40 Duloxetine Hcl 60 Mg Cap PO 08/16/22 08:59 60 mg DAILY JANE Administration Fentanyl 25 mcg 07/21/22 19:00 07/21/22 20:49 Fentanyl 25 Mcg/Hr Tdsy TD 08/04/22 18:59 25 mcg Q3D JANE Administration Filgrastim 300 mcg 07/20/22 10:00 07/22/22 10:44 Filgrastim 300 Mcg/Ml Vial SC 08/19/22 09:59 300 mcg DAILY JANE Administration Gabapentin 300 mg 07/18/22 08:30 07/22/22 07:46 Gabapentin 300 Mg Cap PO 08/17/22 08:29 300 mg BID@0830,1630 JANE Administration Heparin Sodium (Porcine) 5 ml 07/17/22 01:43 07/22/22 00:32 Heparin 100 Unit/Ml 5ml Flush FLUSH 08/16/22 01:42 5 ml PRN PRN Administration Flush Hydrochlorothiazide 25 mg 07/22/22 09:00 07/22/22 08:39 Hydrochlorothiazide 25 Mg Tab PO 08/21/22 08:59 25 mg QAM JANE Administration Insulin Aspart 0 units 07/20/22 11:30 07/22/22 11:44 Insulin Aspart Per Unit SC 08/19/22 11:29 3 units ACHS JANE Administration Metoprolol Tartrate 25 mg 07/20/22 11:45 07/22/22 08:39 Metoprolol Tartrate 25 Mg Tab PO 08/19/22 11:44 25 mg BID JANE Administration Miscellaneous 1 each 07/18/22 08:59 07/21/22 08:12 Fentanyl Patch Remove & Waste N/A 08/17/22 08:58 1 each Q3D JANE Administration Miscellaneous 1 each 07/17/22 00:00 07/22/22 07:46 Check Fentanyl Patch Placement N/A 08/16/22 00:00 1 each QS JANE Administration Multivitamins 1 tab 07/18/22 09:00 07/22/22 08:40 Multivitamin Tab PO 08/17/22 08:59 1 tab DAILY JANE Administration Nystatin 1 appln 07/16/22 23:43 07/22/22 08:40 Nystatin Powder 15gm Btl EXT 08/15/22 23:42 1 appln BID JANE Administration Nystatin 5 ml 07/18/22 13:00 07/22/22 11:38 Nystatin Susp 500,000 U/5 Ml Udc PO 07/28/22 12:59 5 ml QID JANE Administration Oxycodone HCl 30 mg 07/16/22 23:45 07/22/22 10:25 Oxycodone Hcl 15 Mg Tabcr (Oxycontin) PO 07/30/22 23:44 30 mg BID JANE Administration Pantoprazole Sodium 40 mg 07/18/22 21:00 07/22/22 08:39 Pantoprazole 40 Mg Tab PO 08/17/22 20:59 40 mg BID JANE Administration Polyethylene Glycol 17 gm 07/17/22 21:00 07/22/22 08:40 Polyethylene (Miralax) 17 Gm Pack PO 08/16/22 20:59 17 gm BID JANE Administration Potassium Phosphate 1 tab 07/19/22 09:00 07/22/22 11:38 Pot Phosphate Monobasic W/ Sod Tab PO 08/18/22 08:59 1 tab QID JANE Administration Sucralfate 1 gm 07/18/22 11:30 07/22/22 11:37 Sucralfate 1 Gm/10 Ml Udc PO 08/17/22 11:29 1 gm ACHS JANE Administration Vitamin D 5,000 units 07/18/22 11:30 07/22/22 10:45 Cholecalciferol 5,000 Units 125 Mcg Tab PO 08/17/22 11:29 5,000 units QDL JANE Administration Voriconazole 200 mg 07/21/22 21:00 07/22/22 08:39 Voriconazole 200 Mg Tablet PO 07/31/22 20:59 200 mg BID JANE Administration
[2022-07-22] MEDS: METOPROLOL TARTRATE 50 MG TAB PO SCH (21:14)
--- NOTE | 2022-07-22 21:15 | Hospitalist Progress Note ---
Date of Service July 22, 2022 Assessment & Plan (1) Pulmonary emboli: Plan: detected on CTA chest - 07/18. moderate PE burden. recent b/l LE dopplers neg for residual DVT. heparin drip initiated 07/18. transitioned to PO Eliquis 07/20 -- 10mg BID x 7 days, then 5mg BID thereafter. I suspect she will need this lifelong/indefinitely. risk factors for PE - recent COVID infection, stage 4 cancer, immobility, etc. had required O2 earlier this week - has remained stable in room air. (2) Candidal UTI (urinary tract infection): Plan: initial urine cx from time of admission was negative; however, u/a at admission and a 2nd u/a later in the stay showed budding yeast on microscopy repeat urine cx now with non-albicans candidal UTI. I called lab and asked them to send culture out for speciation & sensitivities. previous betts catheter has been removed. typically I would not Rx this candidal UTI. however, in light of presentation (Shock, suspected sepsis), immunocompromised status (s/p chemo last week, neutropenia), etc I would favor Rx. most non-albicans species we have detected are typically voriconazole sensitive. thus, started voriconazole 200mg BID PM of 07/21/22. I spoke with our pharmacy -- voriconazole and fentanyl patch/oxycontin do interact via CYP system. The voriconazole can theoretically increase blood levels of fentanyl. To be on safe side I lowered the fentanyl patch to 25mcg. Can resume higher dose down the line once anti-fungal course is complete. Thus far patient is having no ill effects from this combination of medication. Spoke with pharmacy again today - voriconazole may not achieve high levels in the bladder. Better option may be diflucan at 400mg/day but uncertain if this candidal species will be sensitive. Await ID consultation and their recs. (3) Colovesical fistula: Plan: Secondary to severe sigmoid diverticulitis with perforation on previous admission resulting in need for diverting colostomy with Dr. Villarreal. I spoke with the [facility] medical coding specialist 07/18 - he and several staff members noted urine in the colostomy several days ago concerning for ongoing fistulous tract. ? urine in the ostomy during this hospital stay as well. [facility] Urology consult was completed - at this time no surgical intervention advised given the complexity of her medical problems, the complexity of the type of surgery she would need to rectify the fistula, ongoing active chemo for her cancer, etc. Reassurance given to patient. (4) Shock: Plan: presumed septic shock at time of admission. likely element of addisonian/adrenal shock as well (had been on chronic prednisone for a long time for RA, then switched to dexamethasone in May 2022). s/p need for levophed - now weaned off. s/p fluid resuscitation - IV fluids now off. stress-dose steroids were employed - now weaned to typical daily dose of 4mg. BPs robust at this time. although septic shock suspected blood/urine cultures were negative. further, CTA chest did not show any pneumonia. Her Acute PEs may have contributed as well to her hypotension. did repeat a urine culture and it has grown non-batool albicans yeast - see #2 above. (5) Chest tightness: Plan: May have been 2nd to acute PEs. May have been 2nd to esophageal/gastric discomfort (has large hiatal hernia, etc). Tightness resolved. No evidence of ACS; EKGS stable. Continue PPI + carafate for GI source. Treat PEs. (6) Sepsis: Plan: Presumed due to UTI in setting of #4. However, blood/urine cx's negative. No pneumonia on CTA chest. A repeat urine culture has grown yeast. See above. All abx therapy has been stopped. Anti-fungal therapy begun. (7) KAT (acute kidney injury): Plan: Creatinine 2.48 on admission. Resolved, now Cr <1. (8) Hypoxia: Plan: Acute hypoxic respiratory failure upon arrival with saturation of 77% on room air. Was initially placed on CPAP, then weaned to NC O2, and now to RA. Likely due to acute PEs. resolved. No evidence of pneumonia or pulmonary edema on imaging. (9) Antineoplastic chemotherapy induced pancytopenia: Plan: Pancytopenia remains with neutropenia. Instituted neutropenic precautions. Started neupogen 300mcg daily on 07/20 until ANC is >2000 Repeat CBC with diff in am. s/p chemotherapy last week c/o [facility] heme/onc. cell lines are acceptable (10) Elevated troponin: Plan: 2nd to myocardial demand ischemia rather than true ACS. Demand ischemia 2nd to acute PEs, shock, etc. (11) Lower extremity edema: Plan: dopplers of b/l legs negative for DVT but probably had DVTs at some point given the PEs discovered. albumin is 3 - may be contributing. TSH is wnl. most recent echo (10/2021) with preserved EF, 55-60%, but grade 2 diastolic dysfunction -- thus diastolic dysfunction also a possible contributor. KAT certainly could have attributed to the edema. since KAT resolved will resume a diuretic. will use HCTZ to help with BP, edema, and it may even help with hypocalcemia. (12) COVID-19: Plan: initial diagnosis 06/29/22. thus, we are nearly 3 weeks out from her initial diagnosis. no symptoms of COVID at this time. COVID/airborne precautions discontinued. (13) Anemia: Plan: Fe studies, B12, and folate with adequate stores. TSH wnl. Anemia 2nd to stage 4 breast ca and recent chemotherapy. Repeat cbc am. H/H remain acceptable. (14) Malignant 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: Plan: With numerous bony metastases. Follows with Dr. Adama Prakash of [facility] oncology. Has only completed 2 rounds of palliative chemotherapy thus far due to recurrent infections and hospitalizations-her most recent treatment was 07/15. Now with chemo-induced pancytopenia. She is s/p palliative XRT to her right hip and her left hip. She is on chronic fentanyl patch and OxyContin 30 Mg p.o. twice daily, and uses oxycodone IR prn. See #2 above re: dose reduction of fentanyl. Continue bowel regimen. Continue gabapentin 300mg BID. Continue dexamethasone 4mg daily for her RA as well as bony pain. (15) Hypertension: Plan: Likely will need to resume olmesartan soon. Newly instituted HCTZ will help. (16) Anxiety and depression: Plan: Continue home duloxetine 60 mg p.o. once daily and lorazepam as needed (17) Hypocalcemia: Plan: phos level minimally low - supplementing 25-OH vit D level wnl total calcium level remains low despite PO supplementation calcium gluconate IV x 2 grams again today suspect 2nd to Xgeva will ask [facility] Nephrology to see in consult to help with this issue (18) Moderate obstructive sleep apnea: Plan: Continue CPAP at bedtime (19) Rheumatoid arthritis: Plan: Has been off of her hydroxychloroquine for some time due to recent infections Is now on dexamethasone daily for bony pain; previously took prednisone 5mg/day for long time for her RA; this was d/c in gadiel of dexamethasone in May 2022 (20) Gout: Plan: cont allopurinol 100mg daily no flares (21) Hyperlipidemia: Plan: Continue atorvastatin 10 mg daily (22) DVT prophylaxis: Plan: Eliquis BID (23) Morbid obesity with BMI of 40.0-44.9, adult: Plan: BMI 43-44 Plan son updated at bedside 07/18/22 [id number] updated extensively by phone on 07/19/22 left message for [id number] on her phone voicemail 07/21/22 [id number] updated extensively by phone 07/22/22 patient remains in PCU status cont PT/OT hopefully back to SNF next 48 hours if calcium is stable, UTI is being treated, etc Admission and Anticipated Discharge Date Admission Date: July 16, 2022 Subjective patient sitting in chair comfortably again states "I feel really good" right arm is swollen but not having much pain breathing is comfortable denies cough denies dizziness voiding fine without her betts no new complaints asks about "plan" (ie - when she will d/c to [facility], etc) Review of Systems Review of Systems: gen - no fevers/chills; sleeping well cv - no chest tightness or pain pulm - no cough or SANDERS GI - no pain or nausea/emesis Physical Exam Physical Exam: gen - NAD; pleasant; sitting in chair skin - mild pallor; mild erythema of right arm (ecchymoses); moderate swelling of majority of right arm mouth - no obvious thrush, MMM heart - RRR, s1 s2, no obvious murmur lungs - decreased BS Left base, CTA b/l otherwise abd - soft, NT, ND, soft, colostomy present LLQ - brown soft stool present ext - 1-2+ edema b/l legs - no change, pulses 2+ b/l psych - awake, alert, oriented x 3 Results & Data Results & Data ([facility]) Vital Signs (Past 12 Hours) Vital Signs Temp Pulse Resp BP Pulse Ox O2 Del Method 07/22/22 19:36 36.3 C L 146/108 H 07/22/22 19:36 97 H 16 07/22/22 19:00 81 15 07/22/22 18:45 83 18 07/22/22 10:50 78 18 132/77 94 Room Air Laboratory Results Laboratory Results - last 24 hr 07/22/22 07/22/22 07/22/22 05:36 05:36 05:36 WBC 2.43 L RBC 2.96 L Hgb 9.4 L Hct 27.6 L MCV 93.2 MCH 31.8 MCHC 34.1 RDW Std Deviation 55.8 H RDW Coeff of [place] 16.8 H Plt Count 132 MPV 9.6 Absolute Nucleated RBC 0.29 H Nucleated RBC % (auto) 11.9 Neutrophils % (Manual) 75 Lymphocytes % (Manual) 14 Monocytes % (Manual) 4 Eosinophils % (Manual) 1 Metamyelocytes % (Man) 1 Myelocytes % (Man) 5 Neutrophils # (Manual) 1.82 Total Absolute Neuts 1.82 Lymphocytes # (Manual) 0.34 L Total Abs Lymphocytes 0.34 L Monocytes # (Manual) 0.10 L Eosinophils # (Manual) 0.02 Metamyelocytes # (Man) 0.02 H Myelocytes # (Manual) 0.12 H Polychromasia 1+ Tear Drop Cells 1+ Sodium 137 Potassium 3.6 Chloride 98 Carbon Dioxide 34 H Anion Gap 5 BUN 22 Creatinine 0.67 Est Cr Clr Drug Dosing 85.8 Est GFR ( Amer) 100.4 Est GFR (Non-Af Amer) 86.6 BUN/Creatinine Ratio 32.8 H Glucose 138 H POC Glucose Calcium 6.7 L Ionized Calcium 0.93 L Urine Color Urine Appearance Urine pH Ur Specific [place] Urine Protein Urine Glucose (UA) Urine Ketones Urine Blood Urine Nitrite Urine Bilirubin Urine Urobilinogen Ur Leukocyte Esterase Urine WBC (Auto) Urine RBC (Auto) U Hyaline Cast (Auto) U Epithel Cells (Auto) Urine Bacteria (Auto) 07/22/22 07/22/22 07/22/22 07:28 11:23 12:55 WBC RBC Hgb Hct MCV MCH MCHC RDW Std Deviation RDW Coeff of [place] Plt Count MPV Absolute Nucleated RBC Nucleated RBC % (auto) Neutrophils % (Manual) Lymphocytes % (Manual) Monocytes % (Manual) Eosinophils % (Manual) Metamyelocytes % (Man) Myelocytes % (Man) Neutrophils # (Manual) Total Absolute Neuts Lymphocytes # (Manual) Total Abs Lymphocytes Monocytes # (Manual) Eosinophils # (Manual) Metamyelocytes # (Man) Myelocytes # (Manual) Polychromasia Tear Drop Cells Sodium Potassium Chloride Carbon Dioxide Anion Gap BUN Creatinine Est Cr Clr Drug Dosing Est GFR ( Amer) Est GFR (Non-Af Amer) BUN/Creatinine Ratio Glucose POC Glucose 118 H 161 H Calcium Ionized Calcium Urine Color Dark Yellow Urine Appearance Cloudy A Urine pH 7.0 Ur Specific [place] 1.020 Urine Protein 1+ H Urine Glucose (UA) Trace H Urine Ketones Negative Urine Blood 3+ H Urine Nitrite Negative Urine Bilirubin Negative Urine Urobilinogen Negative Ur Leukocyte Esterase 2+ H Urine WBC (Auto) >30 H Urine RBC (Auto) >30 H U Hyaline Cast (Auto) 1-5 U Epithel Cells (Auto) 20-30 H Urine Bacteria (Auto) 1+ H 07/22/22 07/22/22 16:24 20:08 WBC RBC Hgb Hct MCV MCH MCHC RDW Std Deviation RDW Coeff of [place] Plt Count MPV Absolute Nucleated RBC Nucleated RBC % (auto) Neutrophils % (Manual) Lymphocytes % (Manual) Monocytes % (Manual) Eosinophils % (Manual) Metamyelocytes % (Man) Myelocytes % (Man) Neutrophils # (Manual) Total Absolute Neuts Lymphocytes # (Manual) Total Abs Lymphocytes Monocytes # (Manual) Eosinophils # (Manual) Metamyelocytes # (Man) Myelocytes # (Manual) Polychromasia Tear Drop Cells Sodium Potassium Chloride Carbon Dioxide Anion Gap BUN Creatinine Est Cr Clr Drug Dosing Est GFR ( Amer) Est GFR (Non-Af Amer) BUN/Creatinine Ratio Glucose POC Glucose 174 H 202 H Calcium Ionized Calcium Urine Color Urine Appearance Urine pH Ur Specific [place] Urine Protein Urine Glucose (UA) Urine Ketones Urine Blood Urine Nitrite Urine Bilirubin Urine Urobilinogen Ur Leukocyte Esterase Urine WBC (Auto) Urine RBC (Auto) U Hyaline Cast (Auto) U Epithel Cells (Auto) Urine Bacteria (Auto) PG Care Time/CCT Total # of Minutes Spent Total Time Spent with Patient: Total time spent is greater than 50% in coordination of care (as documented) at patient's floor/unit and/or counseling patient: Coding Level of Care Code 40843 Subseq Hosp Care Lvl 3 Diagnoses Pulmonary emboli I26.99 Candidal UTI (urinary tract infection) B37.49 Colovesical fistula N32.1 Shock R57.9 Chest tightness R07.89 Sepsis A41.9; R65.20; N17.9 Acute renal failure type: unspecified Sepsis acute organ dysfunction status: with acute organ dysfunction Sepsis type: sepsis due to unspecified organism Severe sepsis acute organ dysfunction type: acute renal failure Severe sepsis shock status: unspecified KAT (acute kidney injury) N17.9 Hypoxia R09.02 Antineoplastic chemotherapy induced pancytopenia D61.810; T45.1X5A Elevated troponin R77.8 Lower extremity edema R60.0 COVID-19 U07.1 Anemia D64.9 Malignant 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 C50.919; C79.51 Hypertension I10 Anxiety and depression F41.9; F32.9 Hypocalcemia E83.51 Moderate obstructive sleep apnea G47.33 Rheumatoid arthritis M06.9 Gout M10.9 Hyperlipidemia E78.5 DVT prophylaxis Z29.9 Morbid obesity with BMI of 40.0-44.9, adult E66.01; Z68.41 (1) Sepsis Acute renal failure type: unspecified Sepsis acute organ dysfunction status: with acute organ dysfunction Sepsis type: sepsis due to unspecified organism Severe sepsis acute organ dysfunction type: acute renal failure Severe sepsis shock status: unspecified Qualified Code(s): A41.9 - Sepsis, unspecified organism; R65.20 - Severe sepsis without septic shock; N17.9 - Acute kidney failure, unspecified
[2022-07-23] MEDS: CHECK fentaNYL PATCH PLACEMENT SCH ×4 (01:03→23:50)
[2022-07-23 06:41] LABS: Albumin Level 2.9 gm/dl (3.4-5.0); BUN Creatinine Ratio 37.3 (10-20); Calcium 7.1 mg/dl (8.5-10.1); Creatinine Clr Calc Pharmacy 77.4 ml/min; Est GFR (Non-African American) 78.5 ml/min; Magnesium 1.6 mg/dl (1.7-2.4); Phosphorus 4.5 mg/dl (2.5-4.9); Potassium 3.6 mmol/L (3.5-5.1)
[2022-07-23 07:14] LABS: Basophils # (auto) 0.03 K/uL (0-0.2); Basophils % (auto) 1.1 %; Hematocrit (blood only) 25.5 % (34.1-44.9); Hemoglobin 8.8 g/dl (12.0-16.0); Immature Granulocytes # (auto) 0.07 K/uL (0.00-0.02); Immature Granulocytes % (auto) 2.6 %; Lymphocytes # (auto) 0.29 K/uL (1.2-3.4); Lymphocytes % (auto) 10.6 %; Mean Corpuscular Hemoglobin 32.4 pg (25.0-34.0); Mean Corpuscular Hgb Conc 34.5 g/dL (32.0-36.0); Mean Corpuscular Volume 93.8 fL (80.0-100.0); Mean Platelet Volume 9.8 fL (9.4-12.3); Monocytes # (auto) 0.28 K/uL (0.24-0.82); Monocytes % (auto) 10.2 %; Neutrophils # (auto) 2.07 K/uL (1.4-6.5); Neutrophils % (auto) 75.5 %; Nucleated RBC # (auto) 0.41 K/uL (0-0); Platelet Count 141 K/uL (130-400); Polychromasia 1+; RDW Coefficient of Variation 17.1 % (11.5-14.5); RDW Standard Deviation 57.3 fL (36.4-46.3); Red Blood Count 2.72 M/uL (3.93-5.22); Tear Drop Cells 1+; Toxic Granulation 1+; Toxic Vacuolation 1+; White Blood Count 2.74 K/ul (4.8-10.8)
--- NOTE | 2022-07-23 07:55 | Ultrasound Report ---
RIGHT UPPER EXTREMITY VENOUS DOPPLER ULTRASOUND CLINICAL HISTORY: severe edema RUE; PEs; eval DVT COMPARISON STUDY: No previous studies for comparison. TECHNIQUE: Sonography of the deep venous system of the right upper extremity was performed. FINDINGS: No deep venous thrombus is identified within the right upper extremity. However, portions o f the right subclavian, cephalic and basilic veins were obscured due to indwelling port and overlying bandages. IMPRESSION: Exam compromised by suboptimal visualization, as described above. However, no deep venous thrombus identified within the right upper extremity. ACT 112: Negative or not required by law. Electronically signed by: Javon Mueller M.D. 07/23/2022 7:54 AM
[2022-07-23] MEDS ORDERED: STAT IV STA (08:44)
[2022-07-23] MEDS ORDERED: CALCIUM GLUCONATE 10% 2,000 MG in DEXTROSE 5% 50 ML IV ONE (08:44)
[2022-07-23] MEDS: INSULIN ASPART PER UNIT SC SCH ×4 (09:28→20:24)
[2022-07-23] MEDS: SUCRALFATE 1 GM/10 ML UDC PO SCH ×4 (09:29→20:19)
[2022-07-23] MEDS: hydroCHLOROthiazide 25 MG TAB PO SCH (09:30)
[2022-07-23] MEDS: DULoxetine HCL 60 MG CAP PO SCH (09:30)
[2022-07-23] MEDS: allopurinoL 100 MG TAB PO SCH (09:31)
[2022-07-23] MEDS: dexAMETHasone 4 MG TAB PO SCH (09:31)
[2022-07-23] MEDS: APIXABAN 5 MG TABLET PO SCH ×2 (09:31→20:17)
[2022-07-23] MEDS: ATORVASTATIN 10 MG TAB PO SCH (09:31)
[2022-07-23] MEDS: GABAPENTIN 300 MG CAP PO SCH ×2 (09:31→17:24)
[2022-07-23] MEDS: MULTIVITAMIN TAB PO SCH (09:31)
[2022-07-23] MEDS: VORICONAZOLE 200 MG TABLET PO SCH ×2 (09:32→20:19)
[2022-07-23] MEDS: FILGRASTIM 300 MCG/ML VIAL SC SCH (09:32)
[2022-07-23] MEDS: PANTOprazole 40 MG TAB PO SCH ×2 (09:32→20:18)
[2022-07-23] MEDS: METOPROLOL TARTRATE 50 MG TAB PO SCH ×2 (09:32→20:17)
[2022-07-23] MEDS: CALCIUM CARBONATE 1250MG TAB PO SCH ×2 (09:32→17:24)
[2022-07-23] MEDS: CALCITRIOL 0.25 MCG CAPSULE PO SCH (09:32)
[2022-07-23] MEDS: NYSTATIN SUSP 500,000 U/5 ML UDC PO SCH ×4 (09:35→20:18)
[2022-07-23] MEDS: NYSTATIN POWDER 15GM BTL EXT SCH ×2 (09:35→20:17)
[2022-07-23] MEDS: MAGNESIUM SULFATE / D5W 1 GM/100 ML BAG IV SCH ×3 (09:44→12:35)
[2022-07-23] MEDS: POLYETHYLENE (MIRALAX) 17 GM PACK PO SCH ×2 (09:44→20:18)
[2022-07-23] MEDS: oxyCODONE HCL 15 MG TABCR (OxyCONTIN) PO SCH ×2 (10:50→20:31)
[2022-07-23] MEDS: POT PHOSPHATE MONOBASIC W/ SOD TAB PO SCH ×4 (10:50→20:19)
--- NOTE | 2022-07-23 11:12 | Nephrology Progress Note ---
Date of Service July 23, 2022 Assessment & Plan (1) Hypocalcemia: Plan: Secondary to Xgeva therapy. Remains asymptomatic. Serum calcium improving. Corrected calcium 8.0 this AM. PTH response appropriate. Magnesium slightly low. Magnesium sulfate 3 grams IV ordered this AM. Additional 2 grams calcium gluconate provided. Continue calcium carbonate 1250 mg twice daily (not to be given with meals). Continue cholecalciferol 5000 units daily. Continue calcitriol 0.25 mcg daily. Monitor labs daily while inpatient. Close outpatient follow up will be required at discharge. (2) Pulmonary emboli: Plan: Treatment with Eliquis per primary team. Close outpatient follow up with Dr. rPakash. (3) Shock: Plan: Resolved. Volume status acceptable. Kidney function preserved. Admission and Anticipated Discharge Date Admission Date: July 16, 2022 Subjective No acute events overnight. Yamilet is resting comfortably in her bedside chair. No complaints this AM. Review of Systems Review of Systems: All systems reviewed & are unremarkable except as noted in HPI & below Physical Exam Constitutional: well developed and + morbidly obese; no acute distress Eyes: + anicteric sclerae; no corneal abnormality ENMT: Mouth: no oral mucosal abnormality and oral mucous membranes not dry Neck: normal visual inspection and trachea midline Respiratory: normal respiratory effort Auscultation: lungs clear to auscultation bilaterally Cardiovascular: Rate/Rhythm: regular rate Heart Sounds: normal S1 and normal S2 Extremities: + edema Musculoskeletal: Extremities: no cyanosis and no clubbing Skin: + turgor decreased; no jaundice Neurologic: Motor/Sensory: no tremor and no asterixis Psychiatric: Orientation: alert and oriented x 3 Results & Data ([facility]) Vital Signs (Past 12 Hours) Vital Signs Temp Pulse Pulse Resp BP BP Pulse Ox 07/23/22 07:49 07/23/22 07:31 36.6 C 61 18 135/82 93 07/23/22 05:59 37.4 C 52 L 15 140/80 95 07/23/22 01:03 67 07/23/22 00:07 130/61 07/23/22 00:07 68 11 L 07/23/22 00:00 65 14 07/23/22 00:08 36.7 C O2 Del Method 07/23/22 07:49 Room Air 07/23/22 07:31 Room Air 07/23/22 05:59 CPAP 07/23/22 01:03 07/23/22 00:07 07/23/22 00:07 07/23/22 00:00 07/23/22 00:08 Laboratory Results Laboratory Results - last 24 hr 07/22/22 07/22/22 07/22/22 11:23 12:55 16:24 WBC RBC Hgb Hct MCV MCH MCHC RDW Std Deviation RDW Coeff of [place] Plt Count MPV Immature Gran % (Auto) Neut % (Auto) Lymph % (Auto) [place] % (Auto) Eos % (Auto) Baso % (Auto) Neut # (Auto) Lymph # (Auto) [place] # (Auto) Eos # (Auto) Baso # (Auto) Immature Gran # (Auto) Absolute Nucleated RBC Nucleated RBC % (auto) Toxic Granulation Toxic Vacuolation Polychromasia Tear Drop Cells Sodium Potassium Chloride Carbon Dioxide Anion Gap BUN Creatinine Est Cr Clr Drug Dosing Est GFR ( Amer) Est GFR (Non-Af Amer) BUN/Creatinine Ratio Glucose POC Glucose 161 H 174 H Calcium Phosphorus Magnesium Albumin PTH Intact Urine Color Dark Yellow Urine Appearance Cloudy A Urine pH 7.0 Ur Specific [place] 1.020 Urine Protein 1+ H Urine Glucose (UA) Trace H Urine Ketones Negative Urine Blood 3+ H Urine Nitrite Negative Urine Bilirubin Negative Urine Urobilinogen Negative Ur Leukocyte Esterase 2+ H Urine WBC (Auto) >30 H Urine RBC (Auto) >30 H U Hyaline Cast (Auto) 1-5 U Epithel Cells (Auto) 20-30 H Urine Bacteria (Auto) 1+ H Cryptococcus Source Cryptococcal Ag (Latex) 07/22/22 07/23/22 07/23/22 20:08 05:33 05:33 WBC RBC Hgb Hct MCV MCH MCHC RDW Std Deviation RDW Coeff of [place] Plt Count MPV Immature Gran % (Auto) Neut % (Auto) Lymph % (Auto) [place] % (Auto) Eos % (Auto) Baso % (Auto) Neut # (Auto) Lymph # (Auto) [place] # (Auto) Eos # (Auto) Baso # (Auto) Immature Gran # (Auto) Absolute Nucleated RBC Nucleated RBC % (auto) Toxic Granulation Toxic Vacuolation Polychromasia Tear Drop Cells Sodium 137 Potassium 3.6 Chloride 99 Carbon Dioxide 31 Anion Gap 7 BUN 28 H Creatinine 0.75 Est Cr Clr Drug Dosing 77.4 Est GFR ( Amer) 91.0 Est GFR (Non-Af Amer) 78.5 BUN/Creatinine Ratio 37.3 H Glucose 163 H POC Glucose 202 H Calcium 7.1 L Phosphorus 4.5 D Magnesium 1.6 L Albumin 2.9 L PTH Intact 229.7 H Urine Color Urine Appearance Urine pH Ur Specific [place] Urine Protein Urine Glucose (UA) Urine Ketones Urine Blood Urine Nitrite Urine Bilirubin Urine Urobilinogen Ur Leukocyte Esterase Urine WBC (Auto) Urine RBC (Auto) U Hyaline Cast (Auto) U Epithel Cells (Auto) Urine Bacteria (Auto) Cryptococcus Source Cryptococcal Ag (Latex) 07/23/22 07/23/22 07/23/22 05:33 05:33 07:03 WBC 2.74 L RBC 2.72 L Hgb 8.8 L Hct 25.5 L MCV 93.8 MCH 32.4 MCHC 34.5 RDW Std Deviation 57.3 H RDW Coeff of [place] 17.1 H Plt Count 141 MPV 9.8 Immature Gran % (Auto) 2.6 Neut % (Auto) 75.5 Lymph % (Auto) 10.6 [place] % (Auto) 10.2 Eos % (Auto) 0.0 Baso % (Auto) 1.1 Neut # (Auto) 2.07 Lymph # (Auto) 0.29 L [place] # (Auto) 0.28 Eos # (Auto) 0.00 Baso # (Auto) 0.03 Immature Gran # (Auto) 0.07 H Absolute Nucleated RBC 0.41 H Nucleated RBC % (auto) 15.0 Toxic Granulation 1+ Toxic Vacuolation 1+ Polychromasia 1+ Tear Drop Cells 1+ Sodium Potassium Chloride Carbon Dioxide Anion Gap BUN Creatinine Est Cr Clr Drug Dosing Est GFR ( Amer) Est GFR (Non-Af Amer) BUN/Creatinine Ratio Glucose POC Glucose 133 H Calcium Phosphorus Magnesium Albumin PTH Intact Urine Color Urine Appearance Urine pH Ur Specific [place] Urine Protein Urine Glucose (UA) Urine Ketones Urine Blood Urine Nitrite Urine Bilirubin Urine Urobilinogen Ur Leukocyte Esterase Urine WBC (Auto) Urine RBC (Auto) U Hyaline Cast (Auto) U Epithel Cells (Auto) Urine Bacteria (Auto) Cryptococcus Source Pending Cryptococcal Ag (Latex) Pending PG Care Time/CCT Total # of Minutes Spent Total Time Spent with Patient: Total time spent is greater than 50% in coordination of care (as documented) at patient's floor/unit and/or counseling patient: Coding Level of Care Code 88617 Subseq Hosp Care Lvl 3 Diagnoses Hypocalcemia E83.51 Pulmonary emboli I26.99 Shock R57.9
[2022-07-23] MEDS: CHOLECALCIFEROL 5,000 UNITS 125 MCG TAB PO SCH (12:34)
--- NOTE | 2022-07-23 13:49 | Infectious Disease Progress Nt ---
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 coli (completed 14 days of antibiotics Zosyn--->Augmentin), found to be covid 19 positive on day of discharge (06/29/22) now presents from [facility] with increasing confusion, lethargy , weakness and hypoxia. There was also report of urine noted in her colostomy bag. In the Ed she was noted to be afebrile, hypotensive with a BP of 58/49 and hypoxic with o2 saturation in the 70s. She was placed on CPAP then Nasal canula and received 3 L of fluids. She remained hypotensive and was started on pressors with levophed. Admission labs were noted for a wbc of 4.29 ( trended down to a new of 0.63, now 2.43), plts 134, creatinine 2.4, hs troponin 16.7, Covid 19 testing positive, inf a/b, rsv negative. Clean catch urinalysis was turbid with trace protein, >30 wbc, 5-10 rbc, 5-10 epithelial cells, 3+ leuk esterase, 2 + bacteria, budding yeast. UC showed multiple bacterial morphotypes,mixed probable skin kana . A betts catheter was placed. Cxr showed no acute cardiopulmonary abnormality. CTAB without contrast shows no acute infectious or inflammatory changes in the abdomen or pelvis. CTA lung showed multifocal lobar, segmental, and subsegmental pulmonary emboli, lower lob atelectasis and multifocal sclerotic foci in the bones compatible with known metastatic disease. Dopplers of the bilateral lower extremities were negative for DVt. Head Ct was unremarkable. She was admitted to ICU, and empirically started on Ertapenem which was switched to Meropenem. Bc were obtained and remain sterile. She was started on heparin drip and is now on Eliquis. There was concern for adrenal insufficiency as she is on chronic steroids for RA so stress dose steroids were initiated. Her hospital course was complicated by ne utropenia/pancytopenia thought to be chemotherapy induced. Neutropenia is improving on Filgrastim A repeat UC was obtained from betts catheter on 07/20 and noted for > 30 epithelial cells, trace leuk est, 10-30 WBC ,negative for bacteria and again noted for budding yeast with hyphae. Prelim urine culture noted for yeast, non batool albicans/non dubliniensis. She was started on voriconazole. Meropenem was discontinued. She was evaluated by urology for possible persistent colovesicular fistula. No surgical intervention was recommend givene her recent complex abdominal surgery and medical comorbidities and ongoing chemotherapy. ID was consulted for evaluation of yeast in urine. At my visit, she is comfortable and sitting up in chair asking when she can go home. Her daughter in law is on phone during visit and provides additional information. The patient complains of chronic bone and joint pain from RA and metastatic cancer to bone and ongoing BL LE edema.. She denies cough, fever, sob, n/v headaches,, vision change, abdominal pain, dysuria, change in urine habits, change in stool consistency, rash. MICRO BC 07/16 NGTD UC 07/16 from straight cath, More than three types of organisms present, all high count,mixed probable skin kana UC 07/20 from indwelling cath, Yeast not Batool albicans/dub, pending ID and sensi Antiinfective: ertapenem 07/16 meropenem 07/17-07/20 voriconazole 07/21- ongoing 1. Shock- undifferentiated; likely multifatorial sepsis vs adrenal insufficiency vs PE with mod clot burden - No ron evidence of lung, skin , urine or abdominal infection. BC sterile -on chronic steroids for RA - Lactate normal on admission - weaned off pressors - off stress dose pressors - afebrile throughout - leukopenia, thrombocytopenia ( improving ). ANC now > 1000 - BC sterile, R port looks clean 2. Yeast, budding yeast with hyphae in urine - yeast is non batool albicans/dubli ( ? from betts) 07/20 - started on voriconazole on 07/21 - no urinary symptom, betts removed. Urinalysis with many epi cells c/f coloniz ation or contamination: unclear of urine was obtained from initial betts ( but labeled as so) - no evidence of candidal skin infection under pannus or in G/U area on exam. - h/o colovesicular fistula 3 Pulmonary emboli - in setting of malignancy, recent Covid 19 infection -BL LE dopplers negative for DVt -heparin drip--> apixiban -hypoxic on admission---> now RA 4. Metastatic breast ca to bone on chemo Neutropenia post chemotherapy -sp palliative XRt - Sp 2 rounds of palliative chemotherapy ( last dose 07/15 day prior to admissio n) - Anc lowest on 07/19 ( 0.52)- improving ( 2.07) on filgrastim 5. Sp Diverticulitis H/O recent colovesicular fistula sp left colectomy and diverting colostomy - ? of continued fistula; report of urine in colostomy bag per NH staff, but not seen during this hosp stay 7. RA on chronic steroids -initially prednisone ---> now dexamethasone 8 Recent Covid 19 infection - tested + 3 weeks ago on 06/29 - still testing positive 07/16 - presenting respiratory symptoms likely more from PE than recent covid 19 ( now on RA) 9. RUE swelling and pain- improving - R Picc line site appear red and mildly irritated, improving - Right hand edematous and tender at prior IV site, improving - h/o Right wrist ORIF - No evidence of clost on US 10. KAT -improving 11. History of ESBL ecoli in urine 06/15/22 - sp treatment with Zosyn --> Augmentin on prior admission . - Urine cx this admission without significant bacteria. Discussion . It is unclear if the yeast in urine contributed to her presentation. It is less likely the source of her presentation or contributing to infectio nbut not impossible given her immunocompromised state and recent chemotherapy. What makes it less likely is her that both urinalysis samples appear contaminated - Many epithelial cells on both samples 07/16- straight cath and 07/20 ( betts). There is no significant predominate bacteria, but both samples noted for budding yeast. The 07/20 sample appears to have been obtained from BETTS and prelim + for yeast . It does not appear that the repeat UC on 07/20was collected because of new urinary symptoms or fever. It is unclear at this time if a colovesicular fistular persists ( not seen on CTAB, but no contrast) . If still present, yeast ( gi kana) would not be surprising to see in urine especially if sample obtained from betts. What makes infection hard to rule out is the shock like picture she presented with no definite etiology and neutropenia. She reports that since the initiation of voriconazole she is feeling better overall, but betts also removed around the same time. She denies localized urinary symptoms pre or during admission, however she was confused and lethargic on admission. She is back to cognitive baseline. Recommendations Overall I think a fungal Uti is less likely but cant rule it out . In case of asymptomatic funguria and neutropenia- (Anc lowest on 07/19 ( 0.52)- improving ( 2.07), in immunocompromised pt , would treat. For now can continue voriconazole pending susceptibility data - She is feeling better on therapy and clinically improving. If decompensates , would switch to Micafungin. Anticipate 7 days total of antifungal coverage for urine if no fungemia. IF fungemia , further investigation is warranted. - Follow up serum cryptococcus antigen - Follow Fungal blood culture from port and picc to rule out invasive batool infection ( not likely) - will follow up yeast Id and sensi ( may need to adjust based on sensi ) - would not repeat urinalysis and urine culture unless patient is symptomatic for UTI. - monitor qtc on azoles ( qtc on 444 07/18) Discussed plan at bedside with pt and updated her daughter in law Pink on phone during teleID visit per her request. All questions answered Thank you for allowing me to participate in the care of your patient. Infectious Disease will continue to follow with you. If any questions over the holiday weekend, please call Please call [facility] [employer] Call Center . I will return 07/27/22 Jose Daniel Roque MD, MPH Infectious Disease [facility] Admission and Anticipated Discharge Date Admission Date: July 16, 2022 Subjective Subsequent visit was provided via telemedicine using two-way real-time interactive telecommunication between the patient and the telemedicine provider. For the duration of the visit, the provider was performing the assessment from a different facility than the patient. This includesuse of bluetooth stethoscope forauscultationperformed by the telepresenter that the telemedicine provider can hear if described in the physical exam. [employer] contact information: Please call [facility] Center . (Phone Number For Physician Use Only) After establishing a telemedicine visit, patient was: Patient/authorized rep acknowledged consent and understanding and Gave permission to continue telehealth session Subsequent Time Spent w Inpatient: 25 minutes She is afebrile and feels well Has some increased foot swelling without pain and seeping from blistered area. Has decreased right hand swelling and pain . RUE doppler is neg for dvt. Review of System less RUE pain Physical Exam Physical Exam: Constitutional:Awake, alert and in NAD, sitting in chair,comfortable Eyes: PERRL, EOMI, anicteric sclera Neck: Supple Respiratory: No increased work of breathing. Right chest port. Insertion site, clean, not tender. No evidence of infection at the site Gastrointestinal Soft. obese, large pannus. colostomy in place on LLQ, brown stool in bag, No urine noted in bag, Stump healthy appearing. No suprapubic or CVA tenderness. No betts in place Musculoskeletal: RUE picc line in AC fossa- area is less red today. Right hand much less edematous, less red, at prior IV site. BL LE 2+ pitting edema with new large dorsal foot blister on bilateral dorsal foot seeping clear fluid. Not tender - No vesicle. Skin: Also see MSK exam. Some ecchymosis on BL UE at prior IV sites, No evidence of fungal skin infection under abdominal pannus . Neurologic: Awake, alert, oriented times 3. Answers all questions appr opriately Psychiatric: Cooperative, appropriate. Results & Data ([facility]) Vital Signs (Past 12 Hours) Vital Signs Temp Pulse Resp BP Pulse Ox O2 Del Method 07/23/22 12:59 36.4 C L 59 L 18 123/72 93 Room Air 07/23/22 07:49 Room Air 07/23/22 07:31 36.6 C 61 18 135/82 93 Room Air 07/23/22 05:59 37.4 C 52 L 15 140/80 95 CPAP Laboratory Results 07/23/22 06:25 Fungal Smear - Final Blood Fungal Culture - Pending 07/20/22 13:20 Urine Culture - Preliminary Urine,Indwelling Cath Yeast not Batool albicans/dub 07/23/22 07/23/22 07/23/22 11:31 07:03 05:33 WBC 2.74 L RBC 2.72 L Hgb 8.8 L Hct 25.5 L MCV 93.8 MCH 32.4 MCHC 34.5 RDW Std Deviation 57.3 H RDW Coeff of [place] 17.1 H Plt Count 141 MPV 9.8 Immature Gran % (Auto) 2.6 Neut % (Auto) 75.5 Lymph % (Auto) 10.6 [place] % (Auto) 10.2 Eos % (Auto) 0.0 Baso % (Auto) 1.1 Neut # (Auto) 2.07 Lymph # (Auto) 0.29 L [place] # (Auto) 0.28 Eos # (Auto) 0.00 Baso # (Auto) 0.03 Immature Gran # (Auto) 0.07 H Absolute Nucleated RBC 0.41 H Nucleated RBC % (auto) 15.0 Toxic Granulation 1+ Toxic Vacuolation 1+ Polychromasia 1+ Tear Drop Cells 1+ Sodium Potassium Chloride Carbon Dioxide Anion Gap BUN Creatinine Est Cr Clr Drug Dosing Est GFR ( Amer) Est GFR (Non-Af Amer) BUN/Creatinine Ratio Glucose POC Glucose 151 H 133 H Calcium Phosphorus Magnesium Albumin PTH Intact 07/23/22 07/23/22 07/22/22 05:33 05:33 20:08 WBC RBC Hgb Hct MCV MCH MCHC RDW Std Deviation RDW Coeff of [place] Plt Count MPV Immature Gran % (Auto) Neut % (Auto) Lymph % (Auto) [place] % (Auto) Eos % (Auto) Baso % (Auto) Neut # (Auto) Lymph # (Auto) [place] # (Auto) Eos # (Auto) Baso # (Auto) Immature Gran # (Auto) Absolute Nucleated RBC Nucleated RBC % (auto) Toxic Granulation Toxic Vacuolation Polychromasia Tear Drop Cells Sodium 137 Potassium 3.6 Chloride 99 Carbon Dioxide 31 Anion Gap 7 BUN 28 H Creatinine 0.75 Est Cr Clr Drug Dosing 77.4 Est GFR ( Amer) 91.0 Est GFR (Non-Af Amer) 78.5 BUN/Creatinine Ratio 37.3 H Glucose 163 H POC Glucose 202 H Calcium 7.1 L Phosphorus 4.5 D Magnesium 1.6 L Albumin 2.9 L PTH Intact 229.7 H 07/22/22 16:24 WBC RBC Hgb Hct MCV MCH MCHC RDW Std Deviation RDW Coeff of [place] Plt Count MPV Immature Gran % (Auto) Neut % (Auto) Lymph % (Auto) [place] % (Auto) Eos % (Auto) Baso % (Auto) Neut # (Auto) Lymph # (Auto) [place] # (Auto) Eos # (Auto) Baso # (Auto) Immature Gran # (Auto) Absolute Nucleated RBC Nucleated RBC % (auto) Toxic Granulation Toxic Vacuolation Polychromasia Tear Drop Cells Sodium Potassium Chloride Carbon Dioxide Anion Gap BUN Creatinine Est Cr Clr Drug Dosing Est GFR ( Amer) Est GFR (Non-Af Amer) BUN/Creatinine Ratio Glucose POC Glucose 174 H Calcium Phosphorus Magnesium Albumin PTH Intact Diagnostic Findings CtAB w/o IV contrast 07/16/22 IMPRESSION: 1. No acute infectious or inflammatory findings are identified in the abdomen or pelvis 2. Again seen is postsurgical change from left colon resection and left lower quadrant colostomy. No bowel obstruction is seen. 3. 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 4. Bilateral sacral insufficiency fractures are again noted with evidence of prior cement fixation. 5. Cardiomegaly. 6. Small left pleural effusion with left basilar consolidation. This is similar to previous. 7. Moderate hiatal hernia. CT head 07/16/22 IMPRESSION: There is no hemorrhage, mass effect, or evidence of acute territorial ischemia by CT criteria. BL LE doppler 07/17/22 IMPRESSION: There is no sonographic evidence of deep venous thrombosis identified in the right or left lower extremity. CTA Chest 07/18/22 IMPRESSION: 1. Multifocal lobar, segmental, and subsegmental pulmonary emboli without evidence of right heart strain. 2. Small left pleural effusion. Lower lobe atelectasis, left greater than right. 3. Multifocal sclerotic foci in the bones compatible with metastatic disease RUE Doppler 07/23/22 IMPRESSION: Exam compromised by suboptimal visualization, as described above. However, no deep venous thrombus identified within the right upper extremity. Microbiology 07/23/22 06:25 Blood Fungal Smear - Final 07/20/22 13:20 Urine,Indwelling Cath Urine Culture - Preliminary Yeast not Batool albicans/dub 07/16/22 18:25 Blood Aerobic Blood Culture - Final No growth in Aerobic bottle after 5 days. 07/16/22 18:25 Blood Anaerobic Blood Culture - Final No growth in Anaerobic bottle after 5 days. 07/16/22 18:09 Blood Aerobic Blood Culture - Final No growth in Aerobic bottle after 5 days. 07/16/22 18:09 Blood Anaerobic Blood Culture - Final No growth in Anaerobic bottle after 5 days. 07/16/22 19:40 Urine,Straight Cath Urine Culture - Final More than three types of organisms present, all high counts mixed probable skin kana - No further identifications or sensitivities to follow. Medications Administered Home Medications Medication Instructions Recorded Confirmed Last Taken cholecalciferol (vitamin D3) 125 5,000 unit PO QDL 04/25/18 07/16/22 07/16/22 mcg (5,000 unit) capsule Lift chair #1 ea 08/22/20 04/28/22 Unknown magnesium oxide 400 mg PO DAILY 10/27/20 07/16/22 07/16/22 duloxetine 60 mg capsule,delayed 60 mg PO DAILY #90 caps 07/07/21 07/16/22 07/16/22 release calcium carbonate 600 mg calcium 1,200 mg PO BID 08/28/21 07/16/22 07/16/22 (1,500 mg) tablet (Calcium) CPAP Machine #1 ea 09/08/21 04/28/22 Unknown atorvastatin 10 mg tablet 10 mg PO DAILY #90 tabs 09/15/21 07/16/22 07/15/22 allopurinol 100 mg tablet 100 mg PO QAM 03/23/22 07/16/22 07/16/22 dexamethasone 4 mg tablet 4 mg PO DAILY 04/27/22 07/16/22 07/16/22 lidocaine 4 % topical patch 1 patch topical DAILY 04/28/22 07/16/22 07/16/22 polyethylene glycol 3350 17 17 g PO BID 04/28/22 07/16/22 07/16/22 08:30 gram/dose oral powder (Miralax) fentanyl 50 mcg/hr transdermal 50 mcg transdermal Q3D #5 ea 06/01/22 07/16/22 07/15/22 patch gabapentin 300 mg capsule 300 mg PO BID #60 caps 06/01/22 07/16/22 07/16/22 olmesartan 20 mg tablet 20 mg PO DAILY #30 tabs 06/01/22 07/16/22 07/16/22 acetaminophen 325 mg tablet 650 mg PO Q6H PRN PAIN/FEVER 06/19/22 07/16/22 06/14/22 (Tylenol) aluminum-mag hydroxide-simethicone 30 ml PO Q4H PRN Nausea 06/19/22 07/16/22 Unknown 400 mg-400 mg-40 mg/5 mL oral susp (Maalox Maximum Strength) bisacodyl 5 mg tablet,delayed 10 mg PO QAM 06/19/22 07/16/22 07/16/22 release bumetanide 2 mg tablet 2 mg PO BID 06/19/22 07/16/22 07/16/22 lorazepam 0.5 mg tablet 0.5 mg PO Q12H 06/19/22 07/16/22 07/16/22 08:30 menthol 0.44 %-zinc oxide 20.6 % 1 applic topical QS 06/19/22 07/16/22 07/16/22 topical ointment (Calmoseptine) 3-11 shift omeprazole 20 mg tablet,delayed 20 mg PO BID 06/19/22 07/16/22 07/16/22 08:30 release ondansetron HCl 4 mg tablet 4 mg PO Q4H PRN NAUSEA/VOMITING 06/19/22 07/16/22 07/16/22 potassium chloride 20 mEq 20 meq PO BID 06/19/22 07/16/22 07/16/22 tablet,extended release prochlorperazine maleate 10 mg 10 mg PO Q4H PRN NAUSEA/VOMITING 06/19/22 07/16/22 Unknown tablet metolazone 2.5 mg tablet 2.5 mg PO DAILY 07/16/22 07/16/22 07/16/22 multivitamin 1 tab PO DAILY 07/16/22 07/16/22 07/16/22 ondansetron HCl 8 mg tablet 8 mg PO . EVERY 24 HOURS PRN 07/16/22 07/16/22 07/15/22 prevent nausea from chemo oxycodone 10 mg tablet 10 mg PO Q4 PRN Pain 07/16/22 07/16/22 07/16/22 03:13 oxycodone 30 mg tablet,crush 30 mg PO Q12H 07/16/22 07/16/22 07/16/22 08:30 resistant,extended release 12 hr Active Medications Generic Name Dose Route Start Last Admin Trade Name Freq PRN Reason Stop Dose Admin Allopurinol 100 mg 07/18/22 09:00 07/23/22 09:31 Allopurinol 100 Mg Tab PO 08/17/22 08:59 100 mg QAM JANE Administration Apixaban 10 mg 07/20/22 09:00 07/23/22 09:31 Apixaban 5 Mg Tablet PO 07/26/22 21:01 10 mg BID JANE Administration Atorvastatin Calcium 10 mg 07/17/22 09:00 07/23/22 09:31 Atorvastatin 10 Mg Tab PO 08/16/22 08:59 10 mg DAILY JANE Administration Calcitriol 0.25 mcg 07/22/22 12:30 07/23/22 09:32 Calcitriol 0.25 Mcg Capsule PO 08/21/22 12:29 0.25 mcg QAM JANE Administration Calcium Carbonate 1,250 mg 07/18/22 08:30 07/23/22 09:32 Calcium Carbonate 1250mg Tab PO 08/17/22 08:29 1,250 mg BID@0830,1630 JANE Administration Dexamethasone 4 mg 07/21/22 09:00 07/23/22 09:31 Dexamethasone 4 Mg Tab PO 08/20/22 08:59 4 mg DAILY JANE Administration Duloxetine HCl 60 mg 07/17/22 09:00 07/23/22 09:30 Duloxetine Hcl 60 Mg Cap PO 08/16/22 08:59 60 mg DAILY JANE Administration Fentanyl 25 mcg 07/21/22 19:00 07/21/22 20:49 Fentanyl 25 Mcg/Hr Tdsy TD 08/04/22 18:59 25 mcg Q3D JANE Administration Gabapentin 300 mg 07/18/22 08:30 07/23/22 09:31 Gabapentin 300 Mg Cap PO 08/17/22 08:29 300 mg BID@0830,1630 JANE Administration Heparin Sodium (Porcine) 5 ml 07/17/22 01:43 07/22/22 00:32 Heparin 100 Unit/Ml 5ml Flush FLUSH 08/16/22 01:42 5 ml PRN PRN Administration Flush Hydrochlorothiazide 25 mg 07/22/22 09:00 07/23/22 09:30 Hydrochlorothiazide 25 Mg Tab PO 08/21/22 08:59 25 mg QAM JANE Administration Magnesium Sulfate/Dextrose 1 gm in 100 mls @ 50 mls/hr 07/23/22 08:45 07/23/22 12:35 Magnesium Sulfate / D5w IV 07/23/22 14:44 50 mls/hr Q2H JANE Administration Insulin Aspart 0 units 07/20/22 11:30 07/23/22 12:34 Insulin Aspart Per Unit SC 08/19/22 11:29 2 units ACHS JANE Administration Metoprolol Tartrate 50 mg 07/22/22 21:00 07/23/22 09:32 Metoprolol Tartrate 50 Mg Tab PO 08/21/22 20:59 50 mg BID JANE Administration Miscellaneous 1 each 07/18/22 08:59 07/21/22 08:12 Fentanyl Patch Remove & Waste N/A 08/17/22 08:58 1 each Q3D JANE Administration Miscellaneous 1 each 07/17/22 00:00 07/23/22 09:29 Check Fentanyl Patch Placement N/A 08/16/22 00:00 1 each QS JANE Administration Multivitamins 1 tab 07/18/22 09:00 07/23/22 09:31 Multivitamin Tab PO 08/17/22 08:59 1 tab DAILY JANE Administration Nystatin 1 appln 07/16/22 23:43 07/23/22 09:35 Nystatin Powder 15gm Btl EXT 08/15/22 23:42 1 appln BID JANE Administration Nystatin 5 ml 07/18/22 13:00 07/23/22 12:35 Nystatin Susp 500,000 U/5 Ml Udc PO 07/28/22 12:59 5 ml QID JANE Administration Oxycodone HCl 30 mg 07/16/22 23:45 07/23/22 10:50 Oxycodone Hcl 15 Mg Tabcr (Oxycontin) PO 07/30/22 23:44 30 mg BID JANE Administration Pantoprazole Sodium 40 mg 07/18/22 21:00 07/23/22 09:32 Pantoprazole 40 Mg Tab PO 08/17/22 20:59 40 mg BID JANE Administration Polyethylene Glycol 17 gm 07/17/22 21:00 07/23/22 09:44 Polyethylene (Miralax) 17 Gm Pack PO 08/16/22 20:59 17 gm BID JANE Administration Potassium Phosphate 1 tab 07/19/22 09:00 07/23/22 12:35 Pot Phosphate Monobasic W/ Sod Tab PO 08/18/22 08:59 1 tab QID JANE Administration Sucralfate 1 gm 07/18/22 11:30 07/23/22 12:34 Sucralfate 1 Gm/10 Ml Udc PO 08/17/22 11:29 1 gm ACHS JANE Administration Vitamin D 5,000 units 07/18/22 11:30 07/23/22 12:34 Cholecalciferol 5,000 Units 125 Mcg Tab PO 08/17/22 11:29 5,000 units QDL JANE Administration Voriconazole 200 mg 07/21/22 21:00 07/23/22 09:32 Voriconazole 200 Mg Tablet PO 07/31/22 20:59 200 mg BID JANE Administration
[2022-07-23] MEDS ORDERED: BUMETANIDE 1 MG TAB PO ONE (14:05)
--- NOTE | 2022-07-23 20:49 | Hospitalist Progress Note ---
Date of Service July 23, 2022 Assessment & Plan (1) Pulmonary emboli: Plan: detected on CTA chest - 07/18. moderate PE burden. recent b/l LE dopplers neg for residual DVT. heparin drip initiated 07/18. transitioned to PO Eliquis 07/20 -- 10mg BID x 7 days, then 5mg BID thereafter. I suspect she will need this lifelong/indefinitely. risk factors for PE - recent COVID infection, stage 4 cancer, immobility, etc. had required O2 earlier this week - has remained stable in room air. (2) Candidal UTI (urinary tract infection): Plan: initial urine cx from time of admission was negative; however, u/a at admission and a 2nd u/a later in the stay showed budding yeast on microscopy repeat urine cx now with non-albicans candidal UTI. I called lab and asked them to send culture out for speciation & sensitivities. previous betts catheter has been removed. typically I would not Rx this candidal UTI. however, in light of presentation (Shock, suspected sepsis), immunocompromised status (s/p chemo last week, neutropenia), etc I would favor Rx. most non-albicans species we have detected are typically voriconazole sensitive. thus, started voriconazole 200mg BID PM of 07/21/22. I spoke with our pharmacy -- voriconazole and fentanyl patch/oxycontin do interact via CYP system. The voriconazole can theoretically increase blood levels of fentanyl. To be on safe side I lowered the fentanyl patch to 25mcg. Can resume higher dose down the line once anti-fungal course is complete if she has worsening pain. Thus far patient is having no ill effects from this combination of medication. ID advising ongoing use of voriconazole x 7 days. F/u on fungal culture - sent to [facility] speciation/sensitivities. ID advised fungal blood cultures - these have been sent. Cryptoccocal ag also sent. (3) Colovesical fistula: Plan: Secondary to severe sigmoid diverticulitis with perforation on previous admission resulting in need for diverting colostomy with Dr. Villarreal. I spoke with the [facility] medical social consultant 07/18 - he and several staff members noted urine in the colostomy several days ago concerning for ongoing fistulous tract. ? urine in the ostomy during this hospital stay as well. [facility] consult was completed - at this time no surgical intervention advised given the complexity of her medical problems, the complexity of the type of surgery she would need to rectify the fistula, ongoing active chemo for her cancer, etc. (4) Shock: Plan: presumed septic shock at time of admission. likely element of addisonian/adrenal shock as well (had been on chronic prednisone for a long time for RA, then switched to dexamethasone in May 2022). Her Acute PEs may have contributed as well to her hypotension. s/p need for levophed in ICU as well as IV fluids - both stopped of course. stress-dose steroids were employed - now weaned to typical daily dose of 4mg. BPs robust at this time. did repeat a urine culture and it has grown non-batool albicans yeast - see #2 above. (5) Chest tightness: Plan: May have been 2nd to acute PEs. May have been 2nd to esophageal/gastric discomfort (has large hiatal hernia, etc). Tightness resolved. has not recurred. No evidence of ACS; EKGS stable. Continue PPI + carafate for GI source. Treat PEs. (6) Sepsis: Plan: Presumed due to UTI in setting of #4. However, blood/urine cx's negative. No pneumonia on CTA chest. A repeat urine culture has grown yeast. See above. All abx therapy has been stopped. Anti-fungal therapy begun. Plan 7 days of anti-fungal Rx. (7) KAT (acute kidney injury): Plan: Creatinine 2.48 on admission. Resolved, now Cr <1. (8) Hypoxia: Plan: Acute hypoxic respiratory failure upon arrival with saturation of 77% on room air. Was initially placed on CPAP, then weaned to NC O2, and now to RA. Likely due to acute PEs. resolved. No evidence of pneumonia or pulmonary edema on imaging. (9) Antineoplastic chemotherapy induced pancytopenia: Plan: Started neupogen 300mcg daily on 07/20. ANC now >2000 Can d/c neupogen. Repeat CBC with diff in am. s/p chemotherapy last week c/o [facility] Arauz heme/onc. other cell lines are acceptable (10) Elevated troponin: Plan: 2nd to myocardial demand ischemia rather than true ACS. Demand ischemia 2nd to acute PEs, shock, etc. (11) Lower extremity edema: Plan: dopplers of b/l legs negative for DVT but probably had DVTs at some point given the PEs discovered. albumin is 3 - may be contributing. TSH is wnl. steroids can contribute. most recent echo (10/2021) with preserved EF, 55-60%, but grade 2 diastolic dysfunction -- thus diastolic dysfunction also a possible contributor. KAT certainly could have attributed to the edema. gabapentin can cause edema. plan - stop gabapentin. compression stockings advised - she has pair at home - family to bring. HCTZ 25mg daily. bumex prn. (12) COVID-19: Plan: initial diagnosis 06/29/22. thus, we are nearly 3 weeks out from her initial diagnosis. no symptoms of COVID at this time. COVID/airborne precautions discontinued. (13) Anemia: Plan: Fe studies, B12, and folate with adequate stores. TSH wnl. Anemia 2nd to stage 4 breast ca and recent chemotherapy. Repeat cbc am. H/H remain acceptable. (14) Malignant 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: Plan: With numerous bony metastases. Follows with Dr. Adama Prakash of [facility] oncology. Has only completed 2 rounds of palliative chemotherapy thus far due to recurrent infections and hospitalizations-her most recent treatment was 07/15. Now with chemo-induced pancytopenia. She is s/p palliative XRT to her right hip and her left hip. She is on chronic fentanyl patch and OxyContin 30 Mg p.o. twice daily, and uses oxycodone IR prn. See #2 above re: dose reduction of fentanyl. Continue bowel regimen. Continue dexamethasone 4mg daily for her RA as well as bony pain. Stop gabapentin due to edema. (15) Hypertension: Plan: Newly instituted HCTZ has helped. Cont off the ARB for now. (16) Anxiety and depression: Plan: Continue home duloxetine 60 mg p.o. once daily and lorazepam as needed (17) Hypocalcemia: Plan: phos level minimally low - supplementing; repeat level am 25-OH vit D level wnl total calcium level remains low despite PO supplementation suspect 2nd to Xgeva appreciate nephrology consult & recs. now on calcitriol. intermittently getting calcium gluconate IV. repeat BMP am (18) Moderate obstructive sleep apnea: Plan: Continue CPAP at bedtime (19) Rheumatoid arthritis: Plan: Has been off of her hydroxychloroquine for some time due to recent infections Is now on dexamethasone daily for bony pain; previously took prednisone 5mg/day for long time for her RA; this was d/c in gadiel of dexamethasone in May 2022 (20) Gout: Plan: cont allopurinol 100mg daily no flares (21) Hyperlipidemia: Plan: Continue atorvastatin 10 mg daily (22) DVT prophylaxis: Plan: Eliquis BID (23) Morbid obesity with BMI of 40.0-44.9, adult: Plan: BMI 43-44 Plan son updated at bedside 07/18/22 [id number] updated extensively by phone on 07/19/22 left message for [id number] on her phone voicemail 07/21/22 [id number] updated extensively by phone 07/22/22 patient remains in PCU status cont PT/OT hopefully back to SNF next 48 hours if calcium is stable, UTI is being treated, etc Admission and Anticipated Discharge Date Admission Date: July 16, 2022 Subjective no events overnight feels good anxious for d/c main complaint is the annoyance of her LE edema now with blisters on tops of both feet - starte this am eating well no dyspnea Review of Systems Review of Systems: cv - c/o persistent edema but no chest pain or tightness pulm - no dyspnea or SANDERS GI - no abd pain, ostomy working well with brown stool; no N/V psych - anxious to get out of hospital Physical Exam Physical Exam: gen - NAD; pleasant; sitting in chair skin - mild pallor; mild erythema of right arm (ecchymoses) improving; moderate swelling of majority of right arm improving mouth - no obvious thrush, MMM heart - RRR, s1 s2, no obvious murmur lungs - decreased BS Left base, CTA b/l otherwise abd - soft, NT, ND, soft, colostomy present LLQ - brown soft stool present ext - 2+ edema b/l legs from feet to knees - slightly worse than yesterday; pulses 2+ b/l psych - awake, alert, oriented x 3 skin - b/l dorsum of feet with large blisters, clear fluid, no erythema Results & Data Results & Data ([facility]) Vital Signs (Past 12 Hours) Vital Signs Temp Pulse Pulse Resp BP Pulse Ox O2 Del Method 07/23/22 19:11 36.7 C 71 18 139/69 91 Room Air 07/23/22 16:11 36.6 C 63 18 123/77 90 Room Air 07/23/22 12:59 36.4 C L 59 L 18 123/72 93 Room Air Laboratory Results Laboratory Results - last 24 hr 07/23/22 07/23/22 07/23/22 05:33 05:33 05:33 WBC RBC Hgb Hct MCV MCH MCHC RDW Std Deviation RDW Coeff of [place] Plt Count MPV Immature Gran % (Auto) Neut % (Auto) Lymph % (Auto) [place] % (Auto) Eos % (Auto) Baso % (Auto) Neut # (Auto) Lymph # (Auto) [place] # (Auto) Eos # (Auto) Baso # (Auto) Immature Gran # (Auto) Absolute Nucleated RBC Nucleated RBC % (auto) Toxic Granulation Toxic Vacuolation Polychromasia Tear Drop Cells Sodium 137 Potassium 3.6 Chloride 99 Carbon Dioxide 31 Anion Gap 7 BUN 28 H Creatinine 0.75 Est Cr Clr Drug Dosing 77.4 Est GFR ( Amer) 91.0 Est GFR (Non-Af Amer) 78.5 BUN/Creatinine Ratio 37.3 H Glucose 163 H POC Glucose Calcium 7.1 L Phosphorus 4.5 D Magnesium 1.6 L Albumin 2.9 L PTH Intact 229.7 H Cryptococcus Source Pending Cryptococcal Ag (Latex) Pending 07/23/22 07/23/22 07/23/22 05:33 07:03 11:31 WBC 2.74 L RBC 2.72 L Hgb 8.8 L Hct 25.5 L MCV 93.8 MCH 32.4 MCHC 34.5 RDW Std Deviation 57.3 H RDW Coeff of [place] 17.1 H Plt Count 141 MPV 9.8 Immature Gran % (Auto) 2.6 Neut % (Auto) 75.5 Lymph % (Auto) 10.6 [place] % (Auto) 10.2 Eos % (Auto) 0.0 Baso % (Auto) 1.1 Neut # (Auto) 2.07 Lymph # (Auto) 0.29 L [place] # (Auto) 0.28 Eos # (Auto) 0.00 Baso # (Auto) 0.03 Immature Gran # (Auto) 0.07 H Absolute Nucleated RBC 0.41 H Nucleated RBC % (auto) 15.0 Toxic Granulation 1+ Toxic Vacuolation 1+ Polychromasia 1+ Tear Drop Cells 1+ Sodium Potassium Chloride Carbon Dioxide Anion Gap BUN Creatinine Est Cr Clr Drug Dosing Est GFR ( Amer) Est GFR (Non-Af Amer) BUN/Creatinine Ratio Glucose POC Glucose 133 H 151 H Calcium Phosphorus Magnesium Albumin PTH Intact Cryptococcus Source Cryptococcal Ag (Latex) 07/23/22 16:35 WBC RBC Hgb Hct MCV MCH MCHC RDW Std Deviation RDW Coeff of [place] Plt Count MPV Immature Gran % (Auto) Neut % (Auto) Lymph % (Auto) [place] % (Auto) Eos % (Auto) Baso % (Auto) Neut # (Auto) Lymph # (Auto) [place] # (Auto) Eos # (Auto) Baso # (Auto) Immature Gran # (Auto) Absolute Nucleated RBC Nucleated RBC % (auto) Toxic Granulation Toxic Vacuolation Polychromasia Tear Drop Cells Sodium Potassium Chloride Carbon Dioxide Anion Gap BUN Creatinine Est Cr Clr Drug Dosing Est GFR ( Amer) Est GFR (Non-Af Amer) BUN/Creatinine Ratio Glucose POC Glucose 167 H Calcium Phosphorus Magnesium Albumin PTH Intact Cryptococcus Source Cryptococcal Ag (Latex) PG Care Time/CCT Total # of Minutes Spent Total Time Spent with Patient: Total time spent is greater than 50% in coordination of care (as documented) at patient's floor/unit and/or counseling patient: Coding Level of Care Code 98609 Subseq Hosp Care Lvl 2 Diagnoses Pulmonary emboli I26.99 Candidal UTI (urinary tract infection) B37.49 Colovesical fistula N32.1 Shock R57.9 Chest tightness R07.89 Sepsis A41.9; R65.20; N17.9 Acute renal failure type: unspecified Sepsis acute organ dysfunction status: with acute organ dysfunction Sepsis type: sepsis due to unspecified organism Severe sepsis acute organ dysfunction type: acute renal failure Severe sepsis shock status: unspecified KAT (acute kidney injury) N17.9 Hypoxia R09.02 Antineoplastic chemotherapy induced pancytopenia D61.810; T45.1X5A Elevated troponin R77.8 Lower extremity edema R60.0 COVID-19 U07.1 Anemia D64.9 Malignant 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 C50.919; C79.51 Hypertension I10 Anxiety and depression F41.9; F32.9 Hypocalcemia E83.51 Moderate obstructive sleep apnea G47.33 Rheumatoid arthritis M06.9 Gout M10.9 Hyperlipidemia E78.5 DVT prophylaxis Z29.9 Morbid obesity with BMI of 40.0-44.9, adult E66.01; Z68.41 (1) Sepsis Acute renal failure type: unspecified Sepsis acute organ dysfunction status: with acute organ dysfunction Sepsis type: sepsis due to unspecified organism Severe sepsis acute organ dysfunction type: acute renal failure Severe sepsis shock status: unspecified Qualified Code(s): A41.9 - Sepsis, unspecified organism; R65.20 - Severe sepsis without septic shock; N17.9 - Acute kidney failure, unspecified
[2022-07-24 06:30] LABS: Albumin Level 3.1 gm/dl (3.4-5.0); BUN Creatinine Ratio 36.3 (10-20); Calcium 7.2 mg/dl (8.5-10.1); Creatinine Clr Calc Pharmacy 64.5 ml/min; Est GFR (Non-African American) 62.2 ml/min; Magnesium 1.9 mg/dl (1.7-2.4); Phosphorus 5.4 mg/dl (2.5-4.9); Potassium 3.4 mmol/L (3.5-5.1)
[2022-07-24 06:50] LABS: Hematocrit (blood only) 27.8 % (34.1-44.9); Hemoglobin 9.6 g/dl (12.0-16.0); Mean Corpuscular Hemoglobin 31.9 pg (25.0-34.0); Mean Corpuscular Hgb Conc 34.5 g/dL (32.0-36.0); Mean Corpuscular Volume 92.4 fL (80.0-100.0); Mean Platelet Volume 10.2 fL (9.4-12.3); Nucleated RBC # (auto) 0.85 K/uL (0-0); Platelet Count 143 K/uL (130-400); RDW Coefficient of Variation 17.3 % (11.5-14.5); RDW Standard Deviation 56.9 fL (36.4-46.3); Red Blood Count 3.01 M/uL (3.93-5.22); White Blood Count 5.32 K/ul (4.8-10.8)
[2022-07-24 06:51] LABS: ALC (manual) 0.37 K/uL (1.2-3.4); Basophils # (manual) 0.05 K/uL (0-0.2); Basophils % (manual) 1 %; Dohle Bodies 1+; Eosinophils # (manual) 0.11 K/uL (0-0.50); Eosinophils % (manual) 2 %; Lymphocytes # (manual) 0.37 K/uL (1.2-3.4); Lymphocytes % (manual) 7 %; Metamyelocytes # (manual) 0.05 K/uL (0-0); Metamyelocytes % (manual) 1 %; Monocytes # (manual) 0.48 K/uL (0.24-0.82); Monocytes % (manual) 9 %; Myelocytes # (manual) 0.21 K/uL (0-0); Myelocytes % (manual) 4 %; Neutrophils % (manual) 77 %; Polychromasia 1+; Toxic Granulation 1+
[2022-07-24] MEDS: PANTOprazole 40 MG TAB PO SCH ×2 (08:09→20:11)
[2022-07-24] MEDS: POT PHOSPHATE MONOBASIC W/ SOD TAB PO SCH (08:09)
[2022-07-24] MEDS: dexAMETHasone 4 MG TAB PO SCH (08:09)
[2022-07-24] MEDS: SUCRALFATE 1 GM/10 ML UDC PO SCH ×4 (08:09→20:10)
[2022-07-24] MEDS: NYSTATIN SUSP 500,000 U/5 ML UDC PO SCH ×4 (08:09→20:10)
[2022-07-24] MEDS: POLYETHYLENE (MIRALAX) 17 GM PACK PO SCH ×2 (08:10→20:10)
[2022-07-24] MEDS: METOPROLOL TARTRATE 50 MG TAB PO SCH ×2 (08:10→20:21)
[2022-07-24] MEDS: DULoxetine HCL 60 MG CAP PO SCH (08:11)
[2022-07-24] MEDS: APIXABAN 5 MG TABLET PO SCH ×2 (08:11→20:08)
[2022-07-24] MEDS: allopurinoL 100 MG TAB PO SCH (08:12)
[2022-07-24] MEDS: CALCITRIOL 0.25 MCG CAPSULE PO SCH (08:12)
[2022-07-24] MEDS: ATORVASTATIN 10 MG TAB PO SCH (08:12)
[2022-07-24] MEDS: VORICONAZOLE 200 MG TABLET PO SCH ×2 (08:12→20:10)
[2022-07-24] MEDS: hydroCHLOROthiazide 25 MG TAB PO SCH (08:12)
[2022-07-24] MEDS: GABAPENTIN 300 MG CAP PO SCH (08:12)
[2022-07-24] MEDS: MULTIVITAMIN TAB PO SCH (08:12)
[2022-07-24] MEDS: CALCIUM CARBONATE 1250MG TAB PO SCH ×2 (08:13→17:56)
[2022-07-24] MEDS: CHECK fentaNYL PATCH PLACEMENT SCH ×2 (08:19→17:48)
[2022-07-24] MEDS: oxyCODONE HCL 15 MG TABCR (OxyCONTIN) PO SCH ×2 (08:23→20:16)
[2022-07-24] MEDS: NYSTATIN POWDER 15GM BTL EXT SCH ×2 (08:24→20:10)
[2022-07-24] MEDS ORDERED: POTASSIUM CHLORIDE CRTAB 20 MEQ TABCR PO STA (08:53)
[2022-07-24] MEDS: HEPARIN 100 UNIT/ML 5ML FLUSH FLUSH PRN (08:58)
[2022-07-24] MEDS: INSULIN ASPART PER UNIT SC SCH ×4 (09:43→20:13)
--- NOTE | 2022-07-24 11:03 | Nephrology Progress Note ---
Date of Service July 24, 2022 Assessment & Plan (1) Hypocalcemia: Plan: * Secondary to Xgeva therapy. Remains asymptomatic. Serum calcium improving. Corrected calcium 8.0 this AM * PTH response appropriate * Continue calcium carbonate 1250 mg twice daily (not to be given with meals), cholecalciferol 5000 units daily, calcitriol 0.25 mcg daily * Follow up w/ Dr. Hoffman in 7 - 10 days (orders for outpatient labs have been entered into EMR, chief quality officer notified to contact patient to schedule follow up) (2) Pulmonary emboli: Plan: * Treatment with Eliquis per primary team. Close outpatient follow up with Dr. Prakash. (3) Shock: Plan: * Resolved. Volume status acceptable. Kidney function preserved. Admission and Anticipated Discharge Date Admission Date: July 16, 2022 Subjective Ms. Joe was seen in her hospital room this morning. She is tolerating her calcium and vitamin D supplements. Ms. Joe reports that she is returning home today Review of Systems Constitutional: no fever Eyes: no problem reported Ear, Nose, Mouth, Throat: no problem reported Respiratory: no dyspnea Cardiovascular: no chest pain Gastrointestinal: no abdominal pain Genitourinary: no dysuria Physical Exam Constitutional: not in distress Eyes: PERRL, conjunctivae normal, anicteric sclerae ENMT: external ear and nose normal, oropharynx normal Neck: trachea midline, no thyromegaly Respiratory: normal respiratory effort, lungs clear to auscultation Cardiovascular: RRR, no murmur, no edema Gastrointestinal (Abdomen): normal bowel sounds, soft, nontender, no hepatosplenomegaly Neurologic: Speech / Cognition: normal speech and normal cognition Results & Data ([facility]) Vital Signs (Past 12 Hours) Vital Signs Temp Pulse Pulse Pulse Resp BP Pulse Ox 07/24/22 08:21 36.4 C L 58 L 20 123/74 94 07/24/22 03:15 36.9 C 63 18 130/83 93 07/24/22 00:10 37.0 C 73 18 135/82 98 07/24/22 00:00 72 O2 Del Method 07/24/22 08:21 Room Air 07/24/22 03:15 Room Air, CPAP 07/24/22 00:10 Room Air, CPAP 07/24/22 00:00 Laboratory Results Laboratory Tests 07/24/22 07/24/22 05:43 06:02 WBC 5.32 Hgb 9.6 L Hct 27.8 L Plt Count 143 Sodium 136 Potassium 3.4 L Chloride 96 L Carbon Dioxide 30 BUN 33 H Creatinine 0.91 Calcium 7.2 L Phosphorus 5.4 H Magnesium 1.9 Albumin 3.1 L PG Care Time/CCT Total # of Minutes Spent Total Time Spent with Patient: Total time spent is greater than 50% in coordination of care (as documented) at patient's floor/unit and/or counseling patient: Coding Level of Care Code 52717 Subseq Hosp Care Lvl 3 Diagnoses Hypocalcemia E83.51 Pulmonary emboli I26.99 Shock R57.9
[2022-07-24] MEDS: CHOLECALCIFEROL 5,000 UNITS 125 MCG TAB PO SCH (13:07)
[2022-07-24] MEDS: fentaNYL 25 MCG/HR TDSY TD SCH (18:45)
--- NOTE | 2022-07-24 20:08 | Hospitalist Progress Note ---
Date of Service July 24, 2022 Assessment & Plan (1) Pulmonary emboli: Plan: detected on CTA chest - 07/18. moderate PE burden. recent b/l LE dopplers neg for residual DVT. heparin drip initiated 07/18. transitioned to PO Eliquis 07/20 -- 10mg BID x 7 days, then 5mg BID thereafter. Today is day #5 of the 10mg dosing. I suspect she will need Eliquis ifelong/indefinitely. risk factors for PE - recent COVID infection, stage 4 cancer, immobility, etc. had required O2 earlier this week - has remained stable in room air. (2) Candidal UTI (urinary tract infection): Plan: non-albicans species started voriconazole 200mg BID PM of 07/21/22. Voriconazole and fentanyl patch/oxycontin do interact via CYP system per our pharmacy team. The voriconazole can theoretically increase blood levels of fentanyl. To be on safe side I lowered the fentanyl patch to 25mcg. Can resume higher dose down the line once anti-fungal course is complete if she has worsening pain. Thus far patient is still not having ill effects from this combination of medication. ID advising ongoing use of voriconazole x 7 days. Thus today is day 3 into 4. F/u on fungal culture - sent to [facility] speciation/sensitivities. ID advised fungal blood cultures - these have been sent. thus far negative. Cryptoccocal ag also sent. Pending. Overall she is stable from the standpoint of this UTI. (3) Colovesical fistula: Plan: Secondary to severe sigmoid diverticulitis with perforation on previous admission resulting in need for diverting colostomy with Dr. Villarreal. I spoke with the [facility] medical office receptionist assistant 07/18 - he and several staff members noted urine in the colostomy several days ago concerning for ongoing fistulous tract. ? urine in the ostomy during this hospital stay as well. [facility] Urology consult was completed - at this time no surgical intervention advised given the complexity of her medical problems, the complexity of the type of surgery she would need to rectify the fistula, ongoing active chemo for her cancer, etc. (4) Shock: Plan: presumed septic shock at time of admission. likely element of addisonian/adrenal shock as well (had been on chronic prednisone for a long time for RA, then switched to dexamethasone in May 2022). Her Acute PEs may have contributed as well to her hypotension. s/p need for levophed in ICU as well as IV fluids - both stopped of course. stress-dose steroids were employed - now weaned to typical daily dose of 4mg. BPs robust at this time. did repeat a urine culture and it has grown non-batool albicans yeast - see #2 above. (5) Chest tightness: Plan: May have been 2nd to acute PEs. May have been 2nd to esophageal/gastric discomfort (has large hiatal hernia, etc). Tightness resolved. has not recurred. No evidence of ACS; EKGS stable. Continue PPI + carafate for GI source. Treat PEs. (6) Sepsis: Plan: Presumed due to UTI in setting of #4. However, blood/urine cx's negative. No pneumonia on CTA chest. A repeat urine culture has grown yeast. See above. (7) KAT (acute kidney injury): Plan: Creatinine 2.48 on admission. Resolved, now Cr <1 for several days. (8) Hypoxia: Plan: Acute hypoxic respiratory failure upon arrival with saturation of 77% on room air. Was initially placed on CPAP, then weaned to NC O2, and now to RA. Likely due to acute PEs. No evidence of pneumonia or pulmonary edema on imaging. (9) Antineoplastic chemotherapy induced pancytopenia: Plan: Started neupogen 300mcg daily on 07/20. ANC now >2000 d/c neupogen. Repeat CBC with diff in am. s/p chemotherapy last week c/o [facility] heme/onc. other cell lines are acceptable (10) Elevated troponin: Plan: 2nd to myocardial demand ischemia rather than true ACS. Demand ischemia 2nd to acute PEs, shock, etc. (11) Lower extremity edema: Plan: pngoing dopplers of b/l legs negative for DVT but probably had DVTs at some point given the PEs discovered. albumin is 3 - may be contributing modestly. TSH is wnl. steroids can contribute. most recent echo (10/2021) with preserved EF, 55-60%, but grade 2 diastolic dysfunction -- thus diastolic dysfunction also a possible contributor. KAT certainly could have attributed to the edema. gabapentin can cause edema. plan - stopped gabapentin. compression stockings advised - family brought home pair, but she can't get them on entirely. On Tuesday ask wound for tubigrip stockings. HCTZ 25mg daily. bumex prn. of note - recent CT abd/pelvis did NOT show any obstructive process of the IVC, etc. (12) COVID-19: Plan: initial diagnosis 06/29/22. thus, we are nearly 3 weeks out from her initial diagnosis. no symptoms of COVID at this time. COVID/airborne precautions discontinued. (13) Anemia: Plan: Fe studies, B12, and folate with adequate stores. TSH wnl. Anemia 2nd to stage 4 breast ca and recent chemotherapy. Repeat cbc am. H/H remain acceptable. (14) Malignant 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: Plan: With numerous bony metastases. Follows with Dr. Adama Prakash of [facility] oncology. Has only completed 2 rounds of palliative chemotherapy thus far due to recurrent infections and hospitalizations-her most recent treatment was 07/15. Now with chemo-induced pancytopenia. She is s/p palliative XRT to her right hip and her left hip. She is on chronic fentanyl patch and OxyContin 30 Mg p.o. twice daily, and uses oxycodone IR prn. See #2 above re: dose reduction of fentanyl. Continue bowel regimen. Continue dexamethasone 4mg daily for her RA as well as bony pain. Stopped gabapentin due to edema. (15) Hypertension: Plan: Newly instituted HCTZ has helped. Cont off the ARB for now. BPs acceptable. (16) Anxiety and depression: Plan: Continue home duloxetine 60 mg p.o. once daily and lorazepam as needed (17) Hypocalcemia: Plan: phos level minimally low and now normalized - stop phos supplement. 25-OH vit D level wnl total calcium level slowly improving suspect 2nd to Xgeva appreciate nephrology consult & recs. now on calcitriol. intermittently getting calcium gluconate IV. repeat BMP am (18) Moderate obstructive sleep apnea: Plan: Continue CPAP at bedtime (19) Rheumatoid arthritis: Plan: Has been off of her hydroxychloroquine for some time due to recent infections Is now on dexamethasone daily for bony pain; previously took prednisone 5mg/day for long time for her RA; this was d/c in gadiel of dexamethasone in May 2022 (20) Gout: Plan: cont allopurinol 100mg daily no flares (21) Hyperlipidemia: Plan: Continue atorvastatin 10 mg daily (22) DVT prophylaxis: Plan: Eliquis BID (23) Morbid obesity with BMI of 40.0-44.9, adult: Plan: BMI 43-44 Plan son updated at bedside 07/18/22 [id number] updated extensively by phone on 07/19/22 left message for [id number] on her phone voicemail 07/21/22 [id number] updated extensively by phone 07/22/22 cont PT/OT auth pending to be able to return to [facility] blisters on b/l dorsum of feet spontaneously ruptured -- cont optifoam dressings Admission and Anticipated Discharge Date Admission Date: July 16, 2022 Subjective patient anxious to d/c asks if she can return to [facility] today feels good no complaints annoyed by her LE edema but her daughter brought her compression stockings and she is wearing them unfortunately can only get them 1/2 way up the shins eating well no respiratory complaints ostomy working well Review of Systems Review of Systems: gen - sleeping well, energy ok, feels good cv - no cp, no chest tightness, no orthopnea; ongoing LE edema pulm - no cough, no congestion, no dyspnea GI - no abd pain/N/V;ostomy working well - no LUTS; no dysuria Physical Exam Physical Exam: gen - NAD; pleasant; sitting in chair skin - mild pallor; mild erythema of right arm (ecchymoses) improving; moderate swelling of majority of right arm again improved mouth - no obvious thrush, MMM heart - RRR, s1 s2, no obvious murmur lungs - decreased BS Left base, CTA b/l abd - soft, NT, ND, soft, colostomy present LLQ - brown stool present ext - 2+ edema b/l legs from feet to knees; pulses 2+ b/l; compression stockings now in place psych - awake, alert, oriented x 3 Results & Data Results & Data ([facility]) Vital Signs (Past 12 Hours) Vital Signs Temp Pulse Pulse Resp BP Pulse Ox O2 Del Method 07/24/22 15:51 36.6 C 55 L 20 124/70 96 Room Air 07/24/22 15:37 55 L 07/24/22 11:58 37.0 C 58 L 18 122/70 97 Room Air 07/24/22 08:21 36.4 C L 58 L 20 123/74 94 Room Air Laboratory Results Laboratory Results - last 24 hr 07/23/22 07/24/22 07/24/22 20:15 05:43 06:02 WBC 5.32 RBC 3.01 L Hgb 9.6 L Hct 27.8 L MCV 92.4 MCH 31.9 MCHC 34.5 RDW Std Deviation 56.9 H RDW Coeff of [place] 17.3 H Plt Count 143 MPV 10.2 Absolute Nucleated RBC 0.85 H Nucleated RBC % (auto) 16.0 Neutrophils % (Manual) 77 Lymphocytes % (Manual) 7 Monocytes % (Manual) 9 Eosinophils % (Manual) 2 Basophils % (Manual) 1 Metamyelocytes % (Man) 1 Myelocytes % (Man) 4 Neutrophils # (Manual) 4.10 Total Absolute Neuts 4.10 Lymphocytes # (Manual) 0.37 L Total Abs Lymphocytes 0.37 L Monocytes # (Manual) 0.48 Eosinophils # (Manual) 0.11 Basophils # (Manual) 0.05 Metamyelocytes # (Man) 0.05 H Myelocytes # (Manual) 0.21 H Toxic Granulation 1+ Dohle Bodies 1+ Polychromasia 1+ Sodium 136 Potassium 3.4 L Chloride 96 L Carbon Dioxide 30 Anion Gap 10 BUN 33 H Creatinine 0.91 Est Cr Clr Drug Dosing 64.5 Est GFR ( Amer) 72.0 Est GFR (Non-Af Amer) 62.2 BUN/Creatinine Ratio 36.3 H Glucose 183 H POC Glucose 158 H Calcium 7.2 L Phosphorus 5.4 H Magnesium 1.9 Albumin 3.1 L 07/24/22 07/24/22 12:12 16:20 WBC RBC Hgb Hct MCV MCH MCHC RDW Std Deviation RDW Coeff of [place] Plt Count MPV Absolute Nucleated RBC Nucleated RBC % (auto) Neutrophils % (Manual) Lymphocytes % (Manual) Monocytes % (Manual) Eosinophils % (Manual) Basophils % (Manual) Metamyelocytes % (Man) Myelocytes % (Man) Neutrophils # (Manual) Total Absolute Neuts Lymphocytes # (Manual) Total Abs Lymphocytes Monocytes # (Manual) Eosinophils # (Manual) Basophils # (Manual) Metamyelocytes # (Man) Myelocytes # (Manual) Toxic Granulation Dohle Bodies Polychromasia Sodium Potassium Chloride Carbon Dioxide Anion Gap BUN Creatinine Est Cr Clr Drug Dosing Est GFR ( Amer) Est GFR (Non-Af Amer) BUN/Creatinine Ratio Glucose POC Glucose 208 H 152 H Calcium Phosphorus Magnesium Albumin PG Care Time/CCT Total # of Minutes Spent Total Time Spent with Patient: Total time spent is greater than 50% in coordination of care (as documented) at patient's floor/unit and/or counseling patient: Coding Level of Care Code 71712 Subseq Hosp Care Lvl 2 Diagnoses Pulmonary emboli I26.99 Candidal UTI (urinary tract infection) B37.49 Colovesical fistula N32.1 Shock R57.9 Chest tightness R07.89 Sepsis A41.9; R65.20; N17.9 Acute renal failure type: unspecified Sepsis acute organ dysfunction status: with acute organ dysfunction Sepsis type: sepsis due to unspecified organism Severe sepsis acute organ dysfunction type: acute renal failure Severe sepsis shock status: unspecified KAT (acute kidney injury) N17.9 Hypoxia R09.02 Antineoplastic chemotherapy induced pancytopenia D61.810; T45.1X5A Elevated troponin R77.8 Lower extremity edema R60.0 COVID-19 U07.1 Anemia D64.9 Malignant 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 C50.919; C79.51 Hypertension I10 Anxiety and depression F41.9; F32.9 Hypocalcemia E83.51 Moderate obstructive sleep apnea G47.33 Rheumatoid arthritis M06.9 Gout M10.9 Hyperlipidemia E78.5 DVT prophylaxis Z29.9 Morbid obesity with BMI of 40.0-44.9, adult E66.01; Z68.41 (1) Sepsis Acute renal failure type: unspecified Sepsis acute organ dysfunction status: with acute organ dysfunction Sepsis type: sepsis due to unspecified organism Severe sepsis acute organ dysfunction type: acute renal failure Severe sepsis shock status: unspecified Qualified Code(s): A41.9 - Sepsis, unspecified organism; R65.20 - Severe sepsis without septic shock; N17.9 - Acute kidney fa ilure, unspecified
[2022-07-25 06:40] LABS: BUN Creatinine Ratio 41.3 (10-20); Creatinine Clr Calc Pharmacy 78.8 ml/min; Est GFR (Non-African American) 78.5 ml/min; Potassium 3.5 mmol/L (3.5-5.1)
[2022-07-25 07:20] LABS: Hematocrit (blood only) 25.6 % (34.1-44.9); Hemoglobin 8.7 g/dl (12.0-16.0); Mean Corpuscular Hemoglobin 31.6 pg (25.0-34.0); Mean Corpuscular Volume 93.1 fL (80.0-100.0); Mean Platelet Volume 9.9 fL (9.4-12.3); Nucleated RBC # (auto) 1.01 K/uL (0-0); Nucleated RBC % (auto) 9.7 %; Platelet Count 122 K/uL (130-400); RDW Coefficient of Variation 17.3 % (11.5-14.5); RDW Standard Deviation 57.1 fL (36.4-46.3); Red Blood Count 2.75 M/uL (3.93-5.22); White Blood Count 10.42 K/ul (4.8-10.8)
[2022-07-25 07:26] LABS: ALC (manual) 1.04 K/uL (1.2-3.4); ANC (manual) 7.92 K/uL (1.4-6.5); Basophilic Stippling Occasional; Lymphocytes # (manual) 1.04 K/uL (1.2-3.4); Lymphocytes % (manual) 10 %; Metamyelocytes # (manual) 0.42 K/uL (0-0); Metamyelocytes % (manual) 4 %; Monocytes # (manual) 1.04 K/uL (0.24-0.82); Monocytes % (manual) 10 %; Neutrophils # (manual) 7.92 K/uL (1.4-6.5); Neutrophils % (manual) 76 %; Polychromasia 1+
--- NOTE | 2022-07-25 09:00 | Nephrology Progress Note ---
Date of Service July 25, 2022 Assessment & Plan (1) Hypocalcemia: Plan: * Secondary to Xgeva therapy. Remains asymptomatic. Serum calcium improving. Corrected calcium 8.0 this AM * PTH response appropriate * Continue calcium carbonate 1250 mg twice daily (not to be given with meals), cholecalciferol 5000 units daily, calcitriol 0.25 mcg daily * Serum Ca remains low despite oral therapy. Will provide 2 g IV Ca gluconate this am. Recheck PRP this afternoon and again in am * Follow up w/ Dr. Hoffman in 7 - 10 days (orders for outpatient labs have been entered into EMR, aoc director combat plans officer notified to contact patient to schedule follow up) (2) Pulmonary emboli: Plan: * Treatment with Eliquis per primary team. Close outpatient follow up with Dr. Prakash. (3) Shock: Plan: * Resolved. Volume status acceptable. Kidney function preserved. Admission and Anticipated Discharge Date Admission Date: July 16, 2022 Subjective Ms. Joe was seen in her hospital room this morning. She is tolerating her calcium and vitamin D supplements. She is awaiting transfer to [facility] Review of Systems Constitutional: no fever Eyes: no problem reported Ear, Nose, Mouth, Throat: no problem reported Respiratory: no dyspnea Cardiovascular: no chest pain Gastrointestinal: no abdominal pain Genitourinary: no dysuria Physical Exam Constitutional: not in distress Eyes: PERRL, conjunctivae normal, anicteric sclerae ENMT: external ear and nose normal, oropharynx normal Neck: trachea midline, no thyromegaly Respiratory: normal respiratory effort, lungs clear to auscultation Cardiovascular: RRR, no murmur, no edema Gastrointestinal (Abdomen): normal bowel sounds, soft, nontender, no hepatosplenomegaly Neurologic: Speech / Cognition: normal speech and normal cognition Results & Data ([facility]) Vital Signs (Past 12 Hours) Vital Signs Temp Pulse Pulse Resp BP Pulse Ox O2 Del Method 07/25/22 07:42 36.7 C 83 18 126/66 100 Room Air 07/25/22 03:27 36.4 C L 49 L 18 141/72 H 95 BiPAP 07/25/22 00:00 57 L 07/24/22 23:57 36.7 C 53 L 18 120/65 98 BiPAP Laboratory Results Laboratory Tests 07/24/22 07/25/22 07/25/22 05:43 05:44 05:44 WBC 10.42 Hgb 8.7 L Hct 25.6 L Plt Count 122 L Sodium 136 Potassium 3.5 Chloride 98 Carbon Dioxide 30 BUN 31 H Creatinine 0.75 Glucose 170 H Calcium 7.0 L Albumin 3.1 L PG Care Time/CCT Total # of Minutes Spent Total Time Spent with Patient: Total time spent is greater than 50% in coordination of care (as documented) at patient's floor/unit and/or counseling patient: Coding Level of Care Code 01522 Subseq Hosp Care Lvl 3 Diagnoses Hypocalcemia E83.51 Pulmonary emboli I26.99 Shock R57.9
[2022-07-25] MEDS ORDERED: STAT IV STA (09:05)
[2022-07-25] MEDS ORDERED: CALCIUM GLUCONATE 10% 2,000 MG in DEXTROSE 5% 50 ML IV ONE (09:05)
[2022-07-25] MEDS: NYSTATIN SUSP 500,000 U/5 ML UDC PO SCH ×4 (09:57→21:24)
[2022-07-25] MEDS: hydroCHLOROthiazide 25 MG TAB PO SCH (09:58)
[2022-07-25] MEDS: SUCRALFATE 1 GM/10 ML UDC PO SCH ×4 (09:58→21:23)
[2022-07-25] MEDS: NYSTATIN POWDER 15GM BTL EXT SCH ×2 (09:58→21:37)
[2022-07-25] MEDS: CALCITRIOL 0.25 MCG CAPSULE PO SCH (09:59)
[2022-07-25] MEDS: CALCIUM CARBONATE 1250MG TAB PO SCH ×2 (09:59→18:08)
[2022-07-25] MEDS: DULoxetine HCL 60 MG CAP PO SCH (09:59)
[2022-07-25] MEDS: MULTIVITAMIN TAB PO SCH (09:59)
[2022-07-25] MEDS: dexAMETHasone 4 MG TAB PO SCH (09:59)
[2022-07-25] MEDS: ATORVASTATIN 10 MG TAB PO SCH (09:59)
[2022-07-25] MEDS: PANTOprazole 40 MG TAB PO SCH ×2 (10:00→21:22)
[2022-07-25] MEDS: VORICONAZOLE 200 MG TABLET PO SCH ×2 (10:00→21:23)
[2022-07-25] MEDS: APIXABAN 5 MG TABLET PO SCH ×2 (10:00→21:24)
[2022-07-25] MEDS: METOPROLOL TARTRATE 50 MG TAB PO SCH ×2 (10:00→21:23)
[2022-07-25] MEDS: allopurinoL 100 MG TAB PO SCH (10:00)
[2022-07-25] MEDS: INSULIN ASPART PER UNIT SC SCH ×4 (10:01→21:22)
[2022-07-25] MEDS: CHECK fentaNYL PATCH PLACEMENT SCH ×3 (10:01→16:56)
[2022-07-25] MEDS: POLYETHYLENE (MIRALAX) 17 GM PACK PO SCH ×2 (10:02→21:16)
[2022-07-25] MEDS: oxyCODONE HCL 15 MG TABCR (OxyCONTIN) PO SCH ×2 (10:08→21:22)
[2022-07-25] MEDS: CHOLECALCIFEROL 5,000 UNITS 125 MCG TAB PO SCH (13:02)
[2022-07-25 13:27] LABS: Calcium 8.3 mg/dl (8.5-10.1); Potassium 3.2 mmol/L (3.5-5.1)
[2022-07-25 13:55] LABS: BUN Creatinine Ratio 36.3 (10-20); Creatinine Clr Calc Pharmacy 73.9 ml/min; Est GFR (African American) 84.2 ml/min; Est GFR (Non-African American) 72.6 ml/min
[2022-07-25] MEDS ORDERED: POTASSIUM CHLORIDE CRTAB 20 MEQ TABCR PO STA (17:22)
[2022-07-25] MEDS ORDERED: BUMETANIDE 2 MG in SYRINGE 0 ML IV ONE (18:00)
--- NOTE | 2022-07-25 20:51 | Hospitalist Progress Note ---
Date of Service July 25, 2022 Assessment & Plan (1) Pulmonary emboli: Plan: detected on CTA chest - 07/18. moderate PE burden. recent b/l LE dopplers neg for residual DVT. heparin drip initiated 07/18. transitioned to PO Eliquis 07/20 -- 10mg BID x 7 days, then 5mg BID thereafter. Today is day #6 of the 10mg dosing. I suspect she will need Eliquis ifelong/indefinitely. risk factors for PE - recent COVID infection, stage 4 cancer, immobility, etc. had required O2 earlier in hospitalization - now in RA for several days & stable. (2) Candidal UTI (urinary tract infection): Plan: non-albicans species started voriconazole 200mg BID PM of 07/21/22. Voriconazole and fentanyl patch/oxycontin do interact via CYP system per our pharmacy team. The voriconazole can theoretically increase blood levels of fentanyl. To be on safe side I lowered the fentanyl patch to 25mcg. Can resume higher dose down the line once anti-fungal course is complete if she has worsening pain. Thus far patient is still not having ill effects from this combination of medication. ID advising ongoing use of voriconazole x 7 days. Thus today is day 4/5 of 7. F/u on fungal culture - sent to [facility] speciation/sensitivities. ID advised fungal blood cultures - these have been sent. thus far negative. Cryptoccocal ag also sent. Pending. Overall she is stable from the standpoint of this UTI. (3) Colovesical fistula: Plan: Secondary to severe sigmoid diverticulitis with perforation on previous admission resulting in need for diverting colostomy with Dr. Villarreal. I spoke with the [facility] medical library assistant 07/18 - he and several staff members noted urine in the colostomy several days ago concerning for ongoing fistulous tract. ? urine in the ostomy during this hospital stay as well. [facility] [place] - at this time no surgical intervention advised given the complexity of her medical problems, the complexity of the type of surgery she would need to rectify the fistula, ongoing active chemo for her cancer, etc. (4) Shock: Plan: presumed septic shock at time of admission. likely element of addisonian/adrenal shock as well (had been on chronic prednisone for a long time for RA, then switched to dexamethasone in May 2022). Her Acute PEs may have contributed as well to her hypotension. s/p need for levophed in ICU as well as IV fluids - both stopped of course. stress-dose steroids were employed - now weaned to typical daily dose of 4mg. BPs robust at this time. did repeat a urine culture and it has grown non-batool albicans yeast - see #2 above. (5) Chest tightness: Plan: May have been 2nd to acute PEs. May have been 2nd to esophageal/gastric discomfort (has large hiatal hernia, etc). Tightness resolved. has not recurred. No evidence of ACS; EKGS stable. Continue PPI + carafate for GI source. Treat PEs. (6) Sepsis: Plan: Presumed due to UTI in setting of #4. However, blood/urine cx's negative. No pneumonia on CTA chest. A repeat urine culture has grown non-albican batool species. see above. (7) KAT (acute kidney injury): Plan: Creatinine 2.48 on admission. Resolved, now Cr <1 for several days. (8) Hypoxia: Plan: Acute hypoxic respiratory failure upon arrival with saturation of 77% on room air. Was initially placed on CPAP, then weaned to NC O2, and now to RA. Likely due to acute PEs. No evidence of pneumonia or pulmonary edema on imaging. (9) Antineoplastic chemotherapy induced pancytopenia: Plan: Started neupogen 300mcg daily on 07/20. ANC now >2000 Neupogen has been d/c. Repeat CBC with diff in am. s/p chemotherapy last week c/o [facility] heme/onc. other cell lines are acceptable (10) Elevated troponin: Plan: 2nd to myocardial demand ischemia rather than true ACS. Demand ischemia 2nd to acute PEs, shock, etc. (11) Lower extremity edema: Plan: pngoing severe dopplers of b/l legs negative for DVT but probably had DVTs at some point given the PEs discovered. albumin is 3 - may be contributing modestly. TSH is wnl. chronic steroids can contribute. most recent echo (10/2021) with preserved EF, 55-60%, but grade 2 diastolic dysfunction -- thus diastolic dysfunction also a possible contributor. KAT certainly could have attributed to the edema. gabapentin can cause edema. plan - stopped gabapentin. compression stockings advised - family brought home pair, but she can't get them on entirely. On Tuesday ask wound care for tubigrip stockings. stop HCTZ - it's not helping . give bumex 2mg IV x 1, followed by 2mg po bid starting 07/26. consider trial of aldactone with bumex. of note - recent CT abd/pelvis did NOT show any obstructive process of the IVC, etc. (12) COVID-19: Plan: initial diagnosis 06/29/22. thus, we are nearly 3 weeks out from her initial diagnosis. no symptoms of COVID at this time. COVID/airborne precautions discontinued. (13) Anemia: Plan: Fe studies, B12, and folate with adequate stores. TSH wnl. Anemia 2nd to stage 4 breast ca and recent chemotherapy. Repeat cbc am. H/H remain acceptable. (14) Malignant 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: Plan: With numerous bony metastases. Follows with Dr. Adama Prakash of [facility] oncology. Has only completed 2 rounds of palliative chemotherapy thus far due to recurrent infections and hospitalizations-her most recent treatment was 07/15. Now with chemo-induced pancytopenia. She is s/p palliative XRT to her right hip and her left hip. She is on chronic fentanyl patch and OxyContin 30 Mg p.o. twice daily, and uses oxycodone IR prn. See #2 above re: dose reduction of fentanyl. Continue bowel regimen. Continue dexamethasone 4mg daily for her RA as well as bony pain. Stopped gabapentin due to edema. (15) Hypertension: Plan: Newly instituted HCTZ has helped but has not helped her edema. STOP the HCTZ. May need to resume her ARB (olmesartan). (16) Anxiety and depression: Plan: Continue home duloxetine 60 mg p.o. once daily and lorazepam as needed (17) Hypocalcemia: Plan: IMPROVING suspect 2nd to Xgeva 25-OH vit D level wnl total calcium level slowly improving appreciate nephrology consult & recs. now on calcitriol. intermittently getting calcium gluconate IV. repeat BMP am (18) Moderate obstructive sleep apnea: Plan: Continue CPAP at bedtime (19) Rheumatoid arthritis: Plan: Has been off of her hydroxychloroquine for some time due to recent infections Is now on dexamethasone daily for bony pain; previously took prednisone 5mg/day for long time for her RA; this was d/c in gadiel of dexamethasone in May 2022 (20) Gout: Plan: cont allopurinol 100mg daily no flares (21) Hyperlipidemia: Plan: Continue atorvastatin 10 mg daily (22) DVT prophylaxis: Plan: Eliquis BID (23) Morbid obesity with BMI of 40.0-44.9, adult: Plan: BMI 43-44 Plan son updated at bedside 07/18/22 [id number] updated extensively by phone on 07/19/22 left message for [id number] on her phone voicemail 07/21/22 [id number] updated extensively by phone 07/22/22 [id number] updated by phone 07/25 cont PT/OT will complete [id number] with her insurance co on Thursday 07/26 blisters on b/l dorsum of feet spontaneously ruptured -- cont optifoam dressings; needs compression Admission and Anticipated Discharge Date Admission Date: July 16, 2022 Subjective no issues overnight tele wnl "I feel good" only complaint is ongoing edema of legs and weeping from her popped blisters on her feet she is eating well no dyspnea I told her about need for [id number] with her insurance prior to going back to [facility] Review of Systems Review of Systems: gen - no fevers cv - no cp, no orthopnea; ongoing edema pulm - no dyspnea, no cough GI - was "gassy" today (lots of flatus via ostomy) but normal stool; no N/V - no LUTs, no dysuria Physical Exam Physical Exam: gen - NAD; pleasant skin - mild pallor; mild erythema of right arm (ecchymoses) improving; moderate swelling of majority of right arm again improved mouth - no obvious thrush, MMM heart - RRR, s1 s2, no murmur lungs - decreased BS Left base, CTA b/l abd - soft, NT, ND, soft, colostomy present LLQ - brown stool present ext - 2-3+ edema b/l legs from feet to knees; pulses 2+ b/l; keflex guaze in place over b/l legs; weeping serous fluid from her feet psych - awake, alert, oriented x 3 Results & Data Results & Data ([facility]) Vital Signs (Past 12 Hours) Vital Signs Temp Pulse Pulse Resp BP Pulse Ox O2 Del Method 07/25/22 19:18 36.5 C 82 18 132/87 95 Room Air 07/25/22 16:00 64 07/25/22 15:26 36.4 C L 62 19 158/90 H 92 Room Air 07/25/22 11:25 36.4 C L 73 16 138/82 95 Room Air Laboratory Results Laboratory Results - last 24 hr 07/25/22 07/25/22 07/25/22 11:45 12:55 16:37 Sodium 134 L Potassium 3.2 L Chloride 97 L Carbon Dioxide 29 Anion Gap 8 BUN 29 H Creatinine 0.80 Est Cr Clr Drug Dosing 73.9 Est GFR ( Amer) 84.2 Est GFR (Non-Af Amer) 72.6 BUN/Creatinine Ratio 36.3 H Glucose 210 H POC Glucose 253 H 176 H Estimat Average Glucose Hemoglobin A1c Calcium 8.3 L Magnesium 07/25/22 21:12 Sodium Potassium Chloride Carbon Dioxide Anion Gap BUN Creatinine Est Cr Clr Drug Dosing Est GFR ( Amer) Est GFR (Non-Af Amer) BUN/Creatinine Ratio Glucose POC Glucose 220 H Estimat Average Glucose Hemoglobin A1c Calcium Magnesium PG Care Time/CCT Total # of Minutes Spent Total Time Spent with Patient: Total time spent is greater than 50% in coordination of care (as documented) at patient's floor/unit and/or counseling patient: Coding Level of Care Code 30241 Subseq Hosp Care Lvl 2 Diagnoses Pulmonary emboli I26.99 Candidal UTI (urinary tract infection) B37.49 Colovesical fistula N32.1 Shock R57.9 Chest tightness R07.89 Sepsis A41.9; R65.20; N17.9 Acute renal failure type: unspecified Sepsis acute organ dysfunction status: with acute organ dysfunction Sepsis type: sepsis due to unspecified organism Severe sepsis acute organ dysfunction type: acute renal failure Severe sepsis shock status: unspecified KAT (acute kidney injury) N17.9 Hypoxia R09.02 Antineoplastic chemotherapy induced pancytopenia D61.810; T45.1X5A Elevated troponin R77.8 Lower extremity edema R60.0 COVID-19 U07.1 Anemia D64.9 Malignant 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 C50.919; C79.51 Hypertension I10 Anxiety and depression F41.9; F32.9 Hypocalcemia E83.51 Moderate obstructive sleep apnea G47.33 Rheumatoid arthritis M06.9 Gout M10.9 Hyperlipidemia E78.5 DVT prophylaxis Z29.9 Morbid obesity with BMI of 40.0-44.9, adult E66.01; Z68.41 (1) Sepsis Acute renal failure type: unspecified Sepsis acute organ dysfunction status: with acute organ dysfunction Sepsis type: sepsis due to unspecified organism Severe sepsis acute organ dysfunction type: acute renal failure Severe sepsis shock status: unspecified Qualified Code(s): A41.9 - Sepsis, unspecified organ ism; R65.20 - Severe sepsis without septic shock; N17.9 - Acute kidney failure, unspecified
[2022-07-25] MEDS: POTASSIUM CHLORIDE CRTAB 20 MEQ TABCR PO SCH (21:25)
[2022-07-26 07:05] LABS: BUN Creatinine Ratio 39.3 (10-20); Calcium 7.8 mg/dl (8.5-10.1); Creatinine Clr Calc Pharmacy 65.3 ml/min; Est GFR (Non-African American) 63.8 ml/min; Potassium 4.2 mmol/L (3.5-5.1)
[2022-07-26] MEDS: SUCRALFATE 1 GM/10 ML UDC PO SCH ×2 (07:47→11:47)
[2022-07-26] MEDS: CALCIUM CARBONATE 1250MG TAB PO SCH (07:47)
[2022-07-26] MEDS: CHECK fentaNYL PATCH PLACEMENT SCH ×3 (07:48→15:51)
--- NOTE | 2022-07-26 08:55 | Nephrology Progress Note ---
Date of Service July 26, 2022 Assessment & Plan (1) Hypocalcemia: Plan: * Secondary to Xgeva therapy. Remains asymptomatic. Serum calcium improving. Corrected calcium 8.0 this AM * PTH response appropriate * Corrected Ca 8.6 this am. Continue calcium carbonate 1250 mg twice daily (not to be given with meals), cholecalciferol 5000 units daily, calcitriol 0.25 mcg daily * Follow up w/ Dr. Hoffman in 7 - 10 days (orders for outpatient labs have been entered into EMR, financial aid officer notified to contact patient to schedule follow up) * No further Nephrology evaluation indicated at this time. Will sign off. Please call if further assistance is needed (2) Pulmonary emboli: Plan: * Treatment with Eliquis per primary team. Close outpatient follow up with Dr. Prakash. (3) Shock: Plan: * Resolved. Volume status acceptable. Kidney function preserved. Admission and Anticipated Discharge Date Admission Date: July 16, 2022 Subjective Ms. Joe was seen in her hospital room this morning. She is tolerating her calcium and vitamin D supplements. She is awaiting transfer to [facility] (awaiting P2P review) Review of Systems Constitutional: no fever Eyes: no problem reported Ear, Nose, Mouth, Throat: no problem reported Respiratory: no dyspnea Cardiovascular: no chest pain Gastrointestinal: no abdominal pain Genitourinary: no dysuria Physical Exam Constitutional: not in distress Eyes: PERRL, conjunctivae normal, anicteric sclerae ENMT: external ear and nose normal, oropharynx normal Neck: trachea midline, no thyromegaly Respiratory: normal respiratory effort, lungs clear to auscultation Cardiovascular: RRR, no murmur, no edema Gastrointestinal (Abdomen): normal bowel sounds, soft, nontender, no hepatosplenomegaly Neurologic: Speech / Cognition: normal speech and normal cognition Results & Data ([facility]) Vital Signs (Past 12 Hours) Vital Signs Temp Pulse Pulse Resp BP Pulse Ox O2 Del Method 07/26/22 08:05 37 C 53 L 16 174/81 H 98 Room Air 07/26/22 00:00 36.8 C 61 20 142/71 H 95 Room Air Laboratory Results Laboratory Tests 07/26/22 05:33 Sodium 135 L Potassium 4.2 D Chloride 98 Carbon Dioxide 30 BUN 35 H Creatinine 0.89 Glucose 167 H Calcium 7.8 L PG Care Time/CCT Total # of Minutes Spent Total Time Spent with Patient: Total time spent is greater than 50% in coordination of care (as documented) at patient's floor/unit and/or counseling patient: Coding Level of Care Code 05689 Subseq Hosp Care Lvl 3 Diagnoses Hypocalcemia E83.51 Pulmonary emboli I26.99 Shock R57.9
[2022-07-26] MEDS ORDERED: LANTUS PER UNIT CHARGE SQ SCH (09:00)
[2022-07-26] MEDS ORDERED: OLMESARTAN MEDOXOMIL 20 MG TAB PO SCH (09:00)
[2022-07-26] MEDS ORDERED: BUMETANIDE 1 MG TAB PO SCH (09:00)
[2022-07-26] MEDS: APIXABAN 5 MG TABLET PO SCH (09:01)
[2022-07-26] MEDS: allopurinoL 100 MG TAB PO SCH (09:01)
[2022-07-26] MEDS: CALCITRIOL 0.25 MCG CAPSULE PO SCH (09:02)
[2022-07-26] MEDS: ATORVASTATIN 10 MG TAB PO SCH (09:02)
[2022-07-26] MEDS: dexAMETHasone 4 MG TAB PO SCH (09:02)
[2022-07-26] MEDS: DULoxetine HCL 60 MG CAP PO SCH (09:02)
[2022-07-26] MEDS: MULTIVITAMIN TAB PO SCH (09:03)
[2022-07-26] MEDS: NYSTATIN POWDER 15GM BTL EXT SCH (09:03)
[2022-07-26] MEDS: METOPROLOL TARTRATE 50 MG TAB PO SCH (09:03)
[2022-07-26] MEDS: oxyCODONE HCL 15 MG TABCR (OxyCONTIN) PO SCH (09:04)
[2022-07-26] MEDS: NYSTATIN SUSP 500,000 U/5 ML UDC PO SCH ×2 (09:04→12:27)
[2022-07-26] MEDS: PANTOprazole 40 MG TAB PO SCH (09:04)
[2022-07-26] MEDS: VORICONAZOLE 200 MG TABLET PO SCH (09:04)
[2022-07-26] MEDS: POTASSIUM CHLORIDE CRTAB 20 MEQ TABCR PO SCH (09:04)
[2022-07-26] MEDS: INSULIN ASPART PER UNIT SC SCH ×2 (09:05→12:26)
[2022-07-26] MEDS: POLYETHYLENE (MIRALAX) 17 GM PACK PO SCH (09:12)
[2022-07-26 10:06] LABS: Estimated Average Glucose 137 mg/dl; Hemoglobin A1C 6.4 % (4.5-5.6)
[2022-07-26 11:42] VITALS: BP 91/62; TEMP 97.9; O2SAT 99
[2022-07-26] MEDS: CHOLECALCIFEROL 5,000 UNITS 125 MCG TAB PO SCH (11:47)
[2022-07-26 15:37] LABS: Cryptococcal Antigen Not Detected (Not Detected); Source Serum
--- NOTE | 2022-07-26 15:51 | Discharge Summary ---
Date of Service July 26, 2022 Admission HPI Per Admitting Provider Yamilet Joe is a 72yo female with history of metastatic breast cancer s/p XRT presently on chemotherapy. She received her third chemotherapy treatment yesterday as well as Xgeva after which she was very tired. She required two people to assist her in transfers. She also had some nausea. No report of fever or chills. No vomiting or diarrhea. Today she was very tired and somewhat confused. She did not recognize her friend at the prison. Her yocmspcy-nc-ign reports that she seemed somewhat confused. In the ER patient was markedly hypotensive with BP of 58/49, hypoxic to 77% on room air. She was administered 3L of NSS with minimal improvement in blood pressure. Low dose Levophed was initiated with improvement in blood pressure. She was somewhat confused which improved intermittently. ER Course: -Levo -Dexamethasone 6mg IV -Ertapenem -NSS x 3L Patient tested POSITIVE for Covid-19 on 06/29/22 on NAAT test and again today on PCR. Recent medication changes include addition of Metolazone 2.5mg po BID daily for treatment of LE edema started 07/12/22. Patient was recently admitted to [facility] from 06/19/22 - 06/29/22 with acute diverticulitis and colovesicular fistula. She had a diverting colostomy placed on 06/21/[address] Villarreal. She was found to have an ESBL E.coli UTI and completed treatment with Zosyn then Augmentin for total of 14 days. Patient had post-operative anemia with Hgb to 6.2 and required 3u PRBCs. Principal Diagnosis pulmonary emboli Discharge Exam gen - NAD; pleasant skin - mild pallor; mild erythema of right arm (ecchymoses) improving; moderate swelling of majority of right arm again improved mouth - no obvious thrush, MMM heart - RRR, s1 s2, no murmur lungs - decreased BS Left base, CTA b/l abd - soft, NT, ND, soft, colostomy present LLQ - brown stool present ext - 2-3+ edema b/l legs from feet to knees; pulses 2+ b/l; keflex guaze in place over b/l legs; weeping serous fluid from her feet psych - awake, alert, oriented x 3 Discharge Data Allergies Allergy/AdvReac Type Severity Reaction Status Date / Time No Known Allergies Allergy Verified 07/16/22 21:47 Consultations 07/16/22 20:15 ED Decision to Admit Stat 07/16/22 23:43 Consult Underpresser Hand Routine 07/19/22 08:36 Consult Urology Routine 07/22/22 08:14 Consult Nephrology Routine 07/22/22 10:06 Consult Infectious Diseases Routine Ordered Studies 07/16/22 18:20 CT head/brain wo con Stat 07/16/22 18:59 CT abd pelvis wo con Stat 07/17/22 19:11 US venous doppler LE BI Stat 07/18/22 16:35 CT angio chest PE protocol Urgent 07/23/22 07:30 US venous doppler UE RT Routine Hospital Course (1) Pulmonary emboli: detected on CTA chest - 07/18. moderate PE burden. recent b/l LE dopplers neg for residual DVT. heparin drip initiated 07/18. transitioned to PO Eliquis 07/20 -- 10mg BID x 7 days, then 5mg BID thereafter. Today is day #7 of the 10mg dosing. I suspect she will need Eliquis ifelong/indefinitely. risk factors for PE - recent COVID infection, stage 4 cancer, immobility, etc. had required O2 earlier in hospitalization - now in RA for several days & stable. (2) Candidal UTI (urinary tract infection): non-albicans species started voriconazole 200mg BID PM of 07/21/22. Voriconazole and fentanyl patch/oxycontin do interact via CYP system per our pharmacy team. The voriconazole can theoretically increase blood levels of fentanyl. To be on safe side I lowered the fentanyl patch to 25mcg. Can resume higher dose down the line once anti-fungal course is complete if she has worsening pain. Thus far patient is still not having ill effects from this combination of medication. ID advising ongoing use of voriconazole x 7 days. Thus today is day 4/5 of 7. F/u on fungal culture - sent to [place] fro speciation/sensitivities. ID advised fungal blood cultures - these have been sent. thus far negative. Cryptoccocal ag also sent. Pending. Overall she is stable from the standpoint of this UTI. (3) Colovesical fistula: Secondary to severe sigmoid diverticulitis with perforation on previous admission resulting in need for diverting colostomy with Dr. Villarreal. I spoke with the [facility] medical officer 07/18 - he and several staff members noted urine in the colostomy several days ago concerning for ongoing fistulous tract. ? urine in the ostomy during this hospital stay as well. [facility] Urology consult was completed - at this time no surgical intervention advised given the complexity of her medical problems, the complexity of the type of surgery she would need to rectify the fistula, ongoing active chemo for her cancer, etc. (4) Shock: presumed septic shock at time of admission. likely element of addisonian/adrenal shock as well (had been on chronic prednisone for a long time for RA, then switched to dexamethasone in May 2022). Her Acute PEs may have contributed as well to her hypotension. s/p need for levophed in ICU as well as IV fluids - both stopped of course. stress-dose steroids were employed - now weaned to typical daily dose of 4mg. BPs robust at this time. did repeat a urine culture and it has grown non-batool albicans yeast - see #2 above. (5) Chest tightness: May have been 2nd to acute PEs. May have been 2nd to esophageal/gastric discomfort (has large hiatal hernia, etc). Tightness resolved. has not recurred. No evidence of ACS; EKGS stable. Continue PPI + carafate for GI source. Treat PEs. (6) Sepsis: Presumed due to UTI in setting of #4. However, blood/urine cx's negative. No pneumonia on CTA chest. A repeat urine culture has grown non-albican batool species. see above. (7) KAT (acute kidney injury): Creatinine 2.48 on admission. Resolved, now Cr <1 for several days. (8) Hypoxia: Acute hypoxic respiratory failure upon arrival with saturation of 77% on room air. Was initially placed on CPAP, then weaned to NC O2, and now to RA. Likely due to acute PEs. No evidence of pneumonia or pulmonary edema on imaging. (9) Antineoplastic chemotherapy induced pancytopenia: Started neupogen 300mcg daily on 07/20. ANC now >2000 Neupogen has been d/c. Repeat CBC with diff in am. s/p chemotherapy [facility] other cell lines are acceptable (10) Elevated troponin: 2nd to myocardial demand ischemia rather than true ACS. Demand ischemia 2nd to acute PEs, shock, etc. (11) Lower extremity edema: pngoing severe dopplers of b/l legs negative for DVT but probably had DVTs at some point given the PEs discovered. albumin is 3 - may be contributing modestly. TSH is wnl. chronic steroids can contribute. most recent echo (10/2021) with preserved EF, 55-60%, but grade 2 diastolic dysfunction -- thus diastolic dysfunction also a possible contributor. KAT certainly could have attributed to the edema. gabapentin can cause edema. plan - stopped gabapentin. compression stockings advised - family brought home pair, but she can't get them on entirely. On Tuesday ask wound care for tubigrip stockings. stop HCTZ - it's not helping . give bumex 2mg IV x 1, followed by 2mg po bid starting 07/26. added metolazone to bumex. of note - recent CT abd/pelvis did NOT show any obstructive process of the IVC, etc. (12) COVID-19: initial diagnosis 06/29/22. thus, we are nearly 3 weeks out from her initial diagnosis. no symptoms of COVID at this time. COVID/airborne precautions discontinued. (13) Anemia: Fe studies, B12, and folate with adequate stores. TSH wnl. Anemia 2nd to stage 4 breast ca and recent chemotherapy. Repeat cbc am. H/H remain acceptable. (14) Malignant 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: With numerous bony metastases. Follows with Dr. Adama Prakash of [facility] oncology. Has only completed 2 rounds of palliative chemotherapy thus far due to recurrent infections and hospitalizations-her most recent treatment was 07/15. Now with chemo-induced pancytopenia. She is s/p palliative XRT to her right hip and her left hip. She is on chronic fentanyl patch and OxyContin 30 Mg p.o. twice daily, and uses oxycodone IR prn. See #2 above re: dose reduction of fentanyl. Continue bowel regimen. Continue dexamethasone 4mg daily for her RA as well as bony pain. Stopped gabapentin due to edema. (15) Hypertension: Newly instituted HCTZ has helped but has not helped her edema. STOP the HCTZ. May need to resume her ARB (olmesartan). (16) Anxiety and depression: Continue home duloxetine 60 mg p.o. once daily and lorazepam as needed (17) Hypocalcemia: IMPROVING suspect 2nd to Xgeva 25-OH vit D level wnl total calcium level slowly improving appreciate nephrology consult & recs. now on calcitriol. intermittently getting calcium gluconate IV. (18) Moderate obstructive sleep apnea: Continue CPAP at bedtime (19) Rheumatoid arthritis: Has been off of her hydroxychloroquine for some time due to recent infections Is now on dexamethasone daily for bony pain; previously took prednisone 5mg/day for long time for her RA; this was d/c in gadiel of dexamethasone in May 2022 (20) Gout: cont allopurinol 100mg daily no flares (21) Hyperlipidemia: Continue atorvastatin 10 mg daily (22) DVT prophylaxis: Eliquis BID (23) Morbid obesity with BMI of 40.0-44.9, adult: BMI 43-44 Plan son updated at bedside 07/18/22 [id number] updated extensively by phone on 07/19/22 left message for almxchiz-lv-yqq on her phone voicemail 07/21/22 [id number] updated extensively by phone 07/22/22 [id number] updated by phone 07/25 cont PT/OT will complete [id number] with her insurance co on Thursday 07/26 blisters on b/l dorsum of feet spontaneously ruptured -- cont optifoam dressings; needs compression Total Time Total Time Spent Total Time Spent (In Minutes): 35 Discharge Plan Discharge Items Patient Disposition: Transfer [facility] Fac Reason For Visit: HYPOTENSION Discharge Diagnosis: hypotension Activity: Resume your previous activity Non-emergency contact: Primary Care Provider Call non-emergency contact if: you have any medication questions Follow-up/Referrals: [facility] [Primary Care Provider] - Diet: Carb Consistent or DM2 Addtl Attending Provider Instructions: WIll need to take eliquis 10 mg for one more dose (already had 13 out of the 14 during hospital stay). Will need 4 more doses of voriconazole and then this can be stopped. The voriconazole can theoretically increase blood levels of fentanyl. To be on safe side I lowered the fentanyl patch to 25mcg. Can resume higher dose down the line once anti-fungal course is complete if she has worsening pain. * Continue calcium carbonate 1250 mg twice daily (not to be given with meals), cholecalciferol 5000 units daily, calcitriol 0.25 mcg daily * Follow up w/ Dr. Hoffman in 7 - 10 days (orders for outpatient labs have been entered into EMR, project officer notified to contact patient to schedule follow up) Pending Studies at Discharge: No Stand-Alone Forms: My [employer], Smoking Cessation Skilled Items Patient informed of condition?: Yes DNR: Yes Discharge Level of Care: Skilled Communicable Disease: No Discharge Prognosis: Stable Lines: None Urinary Catheter: No Medications and DC Order Prescriptions: New voriconazole [Vfend] 200 mg Tablet 200 mg PO BID Qty: 4 0RF Eliquis 5 mg Tablet 5 mg PO BID Qty: 0 0RF Rx Instructions: 10 mg for one dose tonight, and then will continue 5 mg PO BID sucralfate 100 mg/mL Suspension 1 g PO ACHS Qty: 400 0RF fentanyl 25 mcg/hr Patch 72 Hour 25 mcg transdermal Q3D Qty: 2 0RF pantoprazole 40 mg Tablet,Delayed Release (Dr/Ec) 40 mg PO DAILY Qty: 30 0RF calcitriol 0.25 mcg Capsule 0.25 mcg PO QAM Qty: 30 0RF metoprolol succinate 25 mg tablet extended release 24 hr 25 mg PO DAILY Qty: 30 0RF metolazone 5 mg tablet 5 mg PO DAILY Qty: 30 0RF Continued calcium carbonate [Calcium 600] 600 mg calcium (1,500 mg) tablet 1,200 mg PO BID Rx Instructions: TAKES 0830 & 1630 dexamethasone 4 mg tablet 4 mg PO DAILY (DME) Lift chair See Rx Instructions .Route .MEDSUPPLY Qty: 1 0RF Rx Instructions: As directed duloxetine 60 mg capsule,delayed release(DR/EC) 60 mg PO DAILY Qty: 90 3RF lidocaine 4 % adhesive patch,medicated 1 patch topical DAILY Rx Instructions: APPLY IN AM, REMOVE QPM. polyethylene glycol 3350 [Miralax] 17 gram/dose powder 17 g PO BID (DME) CPAP Machine Misc See Rx Instructions .MEDSUPPLY Qty: 1 0RF Rx Instructions: CPAP 13 cm water pressure, c flex setting #2 with heated humidification, tubing, and supplies. ALTAGRACIA: 99+ years. atorvastatin 10 mg tablet 10 mg PO DAILY Qty: 90 3RF cholecalciferol (vitamin D3) 5,000 unit Capsule 5,000 unit PO QDL olmesartan 20 mg Tablet 20 mg PO DAILY Qty: 30 0RF Rx Instructions: HOLD FOR SBP < 100 magnesium oxide 400 mg magnesium Tablet 400 mg PO DAILY allopurinol 100 mg tablet 100 mg PO QAM acetaminophen [Tylenol] 325 mg Tablet 650 mg PO Q6H PRN (Reason: PAIN/FEVER) ondansetron HCl 4 mg Tablet 4 mg PO Q4H PRN (Reason: NAUSEA/VOMITING) Rx Instructions: if ineffective give Prochlorperazine prochlorperazine maleate 10 mg Tablet 10 mg PO Q4H PRN (Reason: NAUSEA/VOMITING) Rx Instructions: give only if ondansetron is ineffective bisacodyl 5 mg Tablet,Delayed Release (Dr/Ec) 10 mg PO QAM alum-mag hydroxide-simeth [Maalox Maximum Strength] 400-400-40 mg/5 mL Suspension 30 ml PO Q4H PRN (Reason: Nausea) menthol-zinc oxide [Calmoseptine] 0.44-20.6 % Ointment 1 applic TOPICAL QS Rx Instructions: apply to buttocks/groin potassium chloride 20 mEq Tablet Extended Release 20 meq PO BID Rx Instructions: TAKES AT 0830 & 1630 bumetanide 2 mg tablet 2 mg PO BID multivitamin Tablet 1 tab PO DAILY ondansetron HCl 8 mg tablet 8 mg PO . EVERY 24 HOURS PRN (Reason: prevent nausea from chemo) oxycodone 10 mg tablet 10 mg PO Q4 PRN (Reason: Pain (Scale Score 7-10)) Qty: 20 0RF oxycodone 30 mg Tablet,Oral Only,Ext.Rel.12 Hr 30 mg PO Q12H Qty: 14 0RF Rx Instructions: oxycontin er 12 hour abuse deterrent 30mg Changed lorazepam 0.5 mg tablet 0.5 mg PO Q12H PRN (Reason: anxiety) Qty: 5 0RF Discontinued fentanyl 50 mcg/hr Patch 72 Hour 50 mcg transdermal Q3D Qty: 5 0RF gabapentin 300 mg capsule 300 mg PO BID Qty: 60 0RF Rx Instructions: TAKES 0830 & 1630 omeprazole 20 mg tablet,delayed release (DR/EC) 20 mg PO BID Rx Instructions: TAKES 0860 & 1630 metolazone 2.5 mg Tablet 2.5 mg PO DAILY Rx Instructions: GIVE 30 MINUTES PRIOR TO BUMEX Discharge Orders: Discharge Order (Routine); Ordered 07/26/22 Ordered By: Abdiel Ware Admission Data Admit Date/Time: 07/16/22 21:10 Attending Provider: Abdiel Ware Admit Provider: Sara Collins Primary Care Provider: [facility] Other Providers: Sara Collins ; Charan Sky ; [facility] ; [place] ; Ronald Hoffman ; Valeria Serrano ; Andrew Monge ; Nette Mccormick ; Mavis Cage ; Suha Allison ; Yamilet Lion ; Subha Rabago Antonie J. ; Arcelia Maya Other Interventions: Discharge Summary Assessment (RN) Last Done: 07/26/22 14:48 Coding Level of Care Code D/C DAY MANAGEMENT >30 MINS Diagnoses Pulmonary emboli I26.99 Candidal UTI (urinary tract infection) B37.49 Colovesical fistula N32.1 Shock R57.9 Chest tightness R07.89 Sepsis A41.9; R65.20; N17.9 Acute renal failure type: unspecified Sepsis acute organ dysfunction status: with acute organ dysfunction Sepsis type: sepsis due to unspecified organism Severe sepsis acute organ dysfunction type: acute renal failure Severe sepsis shock status: unspecified KAT (acute kidney injury) N17.9 Hypoxia R09.02 Antineoplastic chemotherapy induced pancytopenia D61.810; T45.1X5A Elevated troponin R77.8 Lower extremity edema R60.0 COVID-19 U07.1 Anemia D64.9 Malignant 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 C50.919; C79.51 Hypertension I10 Anxiety and depression F41.9; F32.9 Hypocalcemia E83.51 Moderate obstructive sleep apnea G47.33 Rheumatoid arthritis M06.9 Gout M10.9 Hyperlipidemia E78.5 DVT prophylaxis Z29.9 Morbid obesity with BMI of 40.0-44.9, adult E66.01; Z68.41
[2022-07-26 15:59] VITALS: PULSE 64
== END 2022-07-26 16:17 | DRG 871 ==
LOC: ED 17:16 → SUATTDRO 21:10 → 1E 21:10 → 4W 07-23 06:45